=== PATIENT | male | born 1940 | race Caucasian/White ===

== ENCOUNTER 2020-09-03 11:10 | Observation (INO) | payer MEDICARE, SELFPAY ==
[2020-09-03] VITALS (28 sets, daily range): BP systolic 122–159; BP diastolic 56–87; PULSE 73–99; RESP 16–28; TEMP 36.4–36.8; O2SAT 92–98; BMI 22.6
--- NOTE | ~2020-09-03 | XR_ITS ---
EXAMINATION: XR chest 2V DATE: 09/03/2020 11:35 INDICATION: Chest pain TECHNIQUE: PA and lateral views of the chest are obtained. COMPARISON: None available FINDINGS: The lungs are free of acute opacities. There is no pleural effusion or pneumothorax. The ca rdiomediastinal silhouette is normal. There is severe thoracic spondylosis. IMPRESSION: 1. No acute cardiopulmonary abnormality. Reviewed, dictated and finalized at location A.
--- NOTE | ~2020-09-03 | CT_ITS ---
EXAMINATION: CT abdomen pelvis w con INDICATION: Epigastric pain TECHNIQUE: Computed tomographic images of the abdomen and pelvis were obtained after the administrati on of 100 cc of Omnipaque 350 intravenous contrast. The dose-length product (DLP) was 466.28 mGy-cm. Automated exposure control and iterative reconstruction technique were employed. COMPARISON: None available FINDINGS: Minimal dependent atelectasis is present in the lung bases. The heart size is normal. The l iver is diffusely low in attenuation when compared with the spleen, consistent with hepatic steatosis . The gallbladder is surgically absent. Punctate calcifications in an otherwise normal spleen likely represent healed granulomatous disease. The pancreas and adrenal glands are normal. Cysts of the kidn eys measure up to 1.3 cm on the left. No pathologically enlarged abdominal or pelvic lymph nodes are identified. There is calcified atherosclerosis of the aorta and many of the other arteries. There is severe stenosis at the origin of the superior mesenteric artery. There is no free intraperitoneal gas or evidence of bowel obstruction. Colonic diverticulosis is present without evidence of diverticulit is. The appendix is normal. There is severe lumbar spondylosis. IMPRESSION: 1. 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 Reviewed, dictated and finalized at location A. IMPRESSION: 1. 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
--- NOTE | ~2020-09-03 | CT_ITS ---
EXAMINATION: CTA abdomen pelvis EXAM DATE: 09/05/2020 14:01 INDICATION: SMA stenosis. TECHNIQUE: Spiral CT angiogram of the abdomen and pelvis was performed following intravenous injectio n of 100 mL Omnipaque 350. Axial, coronal and sagittal images of the abdomen and pelvis were reviewe d. Maximum intensity projection 3-D reconstructions of the arteries were created by the technologist on dedicated workstation. The dose-length product (DLP) for this examination was 613.66 mGy-cm. T he exposure was tailored according to patient size (auto mA exposure control), and iterative reconstr uction (ASIR) was used as additional dose reduction technique. Comparison is made to prior examinatio n from 09/03/2020. FINDINGS: ARTERIES: There is approximately 1.5 cm segment of superior mesenteric artery origin atherosclerosis which has narrowing of lumen to about 2 mm in diameter versus reference point distal to this narrowin g of 7 mm. Remainder of the superior mesenteric artery enhances normally, and both celiac and the in ferior mesenteric arteries are widely patent. Generally 2 vessels need to be stenotic for mesenteric ischemia. Otherwise mild to moderate scattered arterial sclerosis. No aortic dissection. Renal arter ies are widely patent. The liver, spleen, adrenal glands and pancreas are unremarkable. There are cholecystectomy clips. P ortal and splenic veins are patent. Kidneys enhance symmetrically. There is no hydronephrosis. Mi ld prostatomegaly. Small left inguinal fat-containing hernia. The bladder is unremarkable. There is no retroperitoneal or pelvic lymphadenopathy. The appendix is normal. Small duodenal diverticulum. Small bowel is unremarkable. There is extensive colonic diverticulosis. There is no adjacent inflammatory change to suggest diverticulitis. There i s expected amount of colonic stool. No free intraperitoneal gas. The heart is normal in size. Th ere are no pericardial or pleural effusions. The lung bases are unremarkable. There are no osteobla stic or osteolytic lesions identified. IMPRESSION: 1. 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 Unremarkable small bowel. 2. Extensive colonic diverticulosis. Duodenal diverticulum. 3. No acute intra-abdominal findings. 4. Small left inguinal fat-containing hernia. Reviewed, dictated and finalized at location A. IMPRESSION: 1. 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 Unremarkable small patito wel. 2. Extensive colonic diverticulosis. Duodenal diverticulum. 3. No acute intra-abdominal findings. 4. Small left inguinal fat-containing hernia.
--- NOTE | 2020-09-03 11:12 | ECG_ITS ---
Measurements Intervals [place] Rate: 86 P: 205 [place]: 187 QRS: -26 QRSD: 92 T: 257 QT: 346 QTc: 415 Interpretive Statements ECTOPIC ATRIAL RHYTHM DELAYED PRECORDIAL R/S TRANSITION T WAVE ABNORMALITY IN INFERIOR LEADS- CONSIDER ISCHEMIA BASELINE ARTIFACT- II, V1-V2 ABNORMAL ECG Electronically Signed On 09-03-2020 12:41:32 CDT by Kei Gonzalez D.O.
[2020-09-03 11:51] LABS: Basophils Percent Auto 0.6 % (0.2-1.2); Eosinophils Absolute Auto 0.1 K/mm3 (0-0.3); Eosinophils Percent Auto 0.8 % (0-4.4); Hematocrit 42.9 % (42.0-52.0); Hemoglobin 14.1 g/dL (14.0-18.0); Immature Granulocyte Absolute 0.04 K/mm3 (0.00-0.031); Immature Granulocyte Percent A 0.6 % (0-0.5); Lymphocytes Absolute Auto 0.81 K/mm3 (0.9-3.2); Lymphocytes Percent Auto 11.2 % (18.3-44.2); Mean Corpuscular HGB Conc 32.9 g/dl (32-36); Mean Corpuscular Hemoglobin 29.9 pg (26-34); Mean Corpuscular Volume 91.1 fl (80-100); Monocytes Absolute Auto 0.7 K/mm3 (0.1-0.6); Monocytes Percent Auto 9.7 % (2.6-8.5); Neutrophils Absolute Auto 5.6 K/mm3 (1.3-6.7); Neutrophils Percent Auto 77.1 % (45.5-73.1); Platelet Count Result 250 k/mm3 (150-375); Red Blood Count 4.71 M/mm3 (4.6-6.20); Red Cell Distribution Width 12.4 % (11.5-14.5); White Blood Count 7.2 K/mm3 (4.5-10.0)
[2020-09-03] MEDS: ASPIRIN 81 MG CHEWABLE TABLET 324 MG PO (11:58)
[2020-09-03 12:01] LABS: Anion Gap 10 mmol/L (8-16); Blood Urea Nitrogen 12 mg/dL (9-20); Calcium 10.1 mg/dL (8.4-10.2); Carbon Dioxide 25 mmol/L (22-30); Chloride 101 mmol/L (98-107); Estimated CRCL calculation 58 ml/min; Estimated Glomerular Filt Rate > 60; Glucose 115 mg/dL (65-110); INR 0.9; Potassium 4.3 mmol/L (3.4-5.0); Prothrombin Time 11.8 Seconds (11.1-14.7); Sodium 136 mmol/L (137-145)
[2020-09-03 12:02] LABS: Partial Thromboplastin Time 24.2 SECONDS (22.3-36.8)
[2020-09-03 12:12] LABS: Troponin I < 0.012 ng/mL (0.000-0.034)
[2020-09-03] MEDS: LIDOCAINE HCL 2% VISC SOLN 15 ML UDC 20 ML PO (12:23)
[2020-09-03] MEDS: MAG HYDROX/AL HYDROX/SIMETH 30 ML UDC PO (12:24)
[2020-09-03] MEDS: FAMOTIDINE 20 MG/2 ML VIAL IV PUSH (12:24)
[2020-09-03] MEDS: SODIUM CHLORIDE 0.9% IV 500 ML 999 ML IV CONT (14:55)
[2020-09-03 14:58] LABS: Troponin I < 0.012 ng/mL (0.000-0.034)
[2020-09-03 15:13] LABS: Lactic Acid Reflex 0.8 mmol/L (0.7-2.1)
--- NOTE | 2020-09-03 16:58 | ED.CHESTPAIN ---
HPI - Chest Pain General Chief Complaint: Chest Pain Stated Complaint: chest pain Time Seen by Provider: 09/03/20 11:57 Source: patient, family and RN notes reviewed Mode of arrival: ambulatory Limitations: no limitations History of Present Illness HPI narrative: Patient is a 80-year-old male who presents to emergency department for evaluation of midsternal and epigastric discomfort for the last 3 days noting that he has had this pain off and on for the last 3 days unsure as to the cause sometimes feels pressure and fullness of the abdomen and thought maybe it was related to his abdomen being gassy patient has not taken anything for his symptoms patient notes in June he had 4 stents placed in 2 vessels patient denies vomiting diarrhea rectal bleeding melena patient notes that his physicians are located in [facility] and he is currently in the process of moving to this area patient on arrival does not appear distressed notes that his pain does not radiate Related Data Allergies Allergy/AdvReac Type Severity Reaction Status Date / Time No Known Allergies Allergy Verified 09/03/20 11:56 Review of Systems Review of Systems: All systems reviewed & are unremarkable except as noted in HPI and below PMFSH Past Medical History Medical History (Updated 09/03/20 @ 17:04 by Davon Chanel PA-C) Coronary artery disease Hyperlipidemia Hypertension Surgical History Surgical History (Updated 09/03/20 @ 17:00 by Davon Chanel PA-C) Stented coronary artery Social History Social History (Updated 09/03/20 @ 17:00 by Davon Chanel PA-C) Smoking status: Never smoker Exam Narrative: Exam Narrative: GENERAL: Well-appearing, well-nourished, and in no acute distress. HEAD: Normocephalic, atraumatic. EYES: PERRLA and EOMI. ENT: Nares clear, no rhinorrhea or epistaxis. Mucous membranes moist. CHEST: Clear to auscultation. No respiratory distress. No wheezes rales or rhonchi HEART: Regular rate and rhythm. No murmur heard. Normal peripheral pulses. ABDOMEN: Soft, mild discomfort in the upper quadrants of the abdomen, nondistended EXTREMITIES: Normal range of motion. No edema. SKIN: Warm, dry, no rash. NEURO: No focal deficits. Alert and oriented x3. Cranial nerves II through XII grossly intact PSYCH: Normal mood and affect. Course Course Emergency Course: Patient evaluated in the emergency department will be placed in hospital given his high risk heart score patient aware of his findings resting comfortably in the room at this time in no distress denying any pain is afebrile nontoxic-appearing ABCs and vital signs intact and stable Consultations Consultation #1: Discussed case with the body and fender mechanic Dr. Painter who has agreed to consult on the patient Discussed case with hospitalist who is agreed to accept the patient Date: 09/03/20 Vital Signs Vital signs: Vital Signs Temperature 98.3 F 09/03/20 11:16 Pulse Rate 76 09/03/20 11:16 Respiratory Rate 16 09/03/20 11:16 Blood Pressure 142/83 H 09/03/20 11:16 Pulse Oximetry 97 09/03/20 11:16 Temperature 98.3 F 09/03/20 11:16 Pulse Rate 94 09/03/20 13:31 Respiratory Rate 21 H 09/03/20 13:31 Blood Pressure 122/64 09/03/20 13:31 Pulse Oximetry 92 09/03/20 13:31 MDM - Chest Pain MDM Narrative Medical decision making narrative: Patient presented with epigastric abdominal pain and chest discomfort no concerning findings in his evaluation will be brought into the hospital for further evaluation and restratification he is afebrile nontoxic-appearing in no distress and without pain at this time Lab Data Result diagrams: 09/03/20 11:42 09/03/20 11:42 Labs: Lab Results 09/03/20 09/03/20 09/03/20 Range/Units 11:42 11:42 11:42 WBC 7.2 (4.5-10.0) K/mm3 RBC 4.71 (4.6-6.20) M/mm3 Hgb 14.1 (14.0-18.0) g/dL Hct 42.9 (42.0-52.0) % MCV 91.1 (80-100) fl MCH 29.9 (26-34) pg
[2020-09-03 20:10] LABS: Cholesterol 119 mg/dL (0-200); HDL Direct 51 mg/dL; Triglycerides 59 mg/dL (<150)
[2020-09-03 20:20] LABS: LDL Cholesterol Direct 47 mg/dL
[2020-09-03 20:23] LABS: Troponin I < 0.012 ng/mL (0.000-0.034)
--- NOTE | 2020-09-03 20:35 | ADMIMU ---
This patient, Ramiro Enciso, was admitted to IMU status, and placed in IMU Room 200-01 at 1856. Patient/family oriented to hospital policies and general routines including ID bracelet, bed and alarms, visiting hours, pain management, procedures, bathroom and other care routines, personal items, smoking policy, room service/diet, and visiting hours. Patient denies having any valuables. Information on how to activate the Rapid Response Team has been discussed. Patient/Family are encouraged to report perceived risks to care and to ask questions if they do not understand what they are told or what they should do.
--- NOTE | 2020-09-03 20:45 | PC.NURSE ---
Pt reports he received both Moderna vaccines.
--- NOTE | 2020-09-03 23:16 | PM.IMHP ---
H&P: HPI History of Present Illness Date/Time: 09/03/20 23:16 This is a 80-year-old male patient who has a past medical history of coronary artery disease with cardiac stents. The patient states that he has been having some midsternal and left upper gastric discomfort on and off for 3 days. The patient stated that his pain went away and then when he ate today it came back. The patient also stated that he is trying to relocate here from [facility]. He was several hours away from home and did not want to drive all the way back. The patient feels very gassy and has a distended abdomen as well. The patient had 4 stents placed in 2 different vessels and june. No nausea vomiting or diarrhea. 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 Chest x-ray was read as no acute cardiopulmonary . The patient is being locating to this area and does not have a primary care doctor here. The patient was given aspirin and a GI cocktail as well as IV fluids. all 3 of his cardiac enzymes are negative. Cardiology has been consulted due to the patient's extensive cardiac history.The patient is being admitted for observation On the date of service of 09/03/2020 Chief Complaint: chest pain Review of Systems Review of Systems: All systems reviewed & are unremarkable except as noted in HPI and below Constitutional: Constitutional: Reports as per HPI and Reports no additional constitutional complaints Eyes: Eyes: Reports as per HPI and Reports no additional eye complaints ENT: Reports system reviewed and no additional complaints, except as documented and Reports Normal hearing present Cardiovascular: Cardiovascular: Reports no additional cardiovascular complaints Respiratory: Respiratory: Reports no additional respiratory complaints and Reports no additional respiratory complaints Gastrointestinal: Gastrointestinal: Reports as per HPI and Reports no additional gastrointestinal complaints Musculoskeletal: Musculoskeletal: Reports no additional musculoskeletal complaints Integumentary/Breasts: Skin/Breast: Reports system reviewed and no additional complaints, except as docu and Reports as per HPI Neurologic: Reports system reviewed and no additional complaints, except as documented, Reports as per HPI and Reports Normal hearing present Psychiatric: Psychiatric: Reports no additional psychiatric complaints and Reports as per HPI Endocrine: Endocrine: Reports no additional endocrine complaints Hematologic/Lymphatic: Hematologic/Lymphatic: Reports no additional hematologic/lymphatic complaints Allergic/Immunologic: Allergic/Immunologic: Reports no additional allergic/immunologic complaints [facility] Past Medical History Medical History (Updated 09/03/20 @ 23:37 by Aimee Manzano NP) Chronic GERD Coronary artery disease Glaucoma Hyperlipidemia Hypertension Surgical History Surgical History (Updated 09/03/20 @ 23:24 by Aimee Manzano NP) History of bilateral knee replacement History of cataract extraction Hx of cholecystectomy Stented coronary artery Family History Family History Father Cerebrovascular accident Sibling Breast cancer Sister Diabetes mellitus Kidney failure Social History Social History (Updated 09/03/20 @ 23:25 by Aimee Manzano NP) Social History: patient stated he quit smoking over 35 years ago. He had 5 children. And lives with his 2nd who is a durable power workers compensation attorney for healthcare. The patient is a full code. 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
[2020-09-04] VITALS (14 sets, daily range): BP systolic 99–149; BP diastolic 45–71; PULSE 57–98; RESP 16–22; TEMP 36.2–37.1; O2SAT 94–100
--- NOTE | 2020-09-04 | ECHO_ITS ---
Patient Info Name: Ramiro Enciso Age: 80 years : 1940 Gender: Male Ht: 70 in Wt: 157 lbs BSA: 1.88 m2 HR: 89 bpm BP: 136 / 60 mmHg Heart Rhythm: Sinus Rhythm Technical Quality: Good Exam Date: 09/04/2020 11:14 AM Exam Location: [facility] Patient Status: Outpatient Admit Date: 09/03/2020 Staff Ordering Physician: Aimee Manzano NP [place] [employer]er Taper: Miguel Lee RDCS, RT Attending Provider: Mable Yepez PA-C Referring Physician: Jose Juan NOVAK; Exam Type: CA echo doppler color flow Study Info Indications R06.02 - Shortness of breath Complete two-dimensional, color flow and Doppler transthoracic echocardiogram is performed. Summary 1. Complete two-dimensional, color flow and Doppler transthoracic echocardiogram is performed. 2. Left ventricular chamber dimension is normal. 3. Left ventricular systolic function is normal, estimated at 65-70%. 4. There is mildly increased left ventricular wall thickness. 5. The left ventricular diastolic function is grade I diastolic dysfunction. 6. There is mild tricuspid valve regurgitation. 7. Moderate pulmonary hypertension, estimated pulmonary arterial systolic pressure is 48 mmHg. Left Ventricle Left ventricular chamber dimension is normal. Left ventricular systolic function is normal, estimated at 65-70%. There is mildly increased left ventricular wall thickness. The left ventricular diastolic function is grade I diastolic dysfunction. Right Ventricle Right ventricular chamber dimension is normal. Right ventricular systolic function is normal. Left Atria Left atrial chamber dimension is normal. Right Atria Right atrial chamber dimension is mildly enlarged. Atrial Septum Thin and hypermobile interatrial septum. Aortic Valve The aortic valve is not well visualized. There is mild aortic valve sclerosis. There is no aortic valve stenosis. There is trace aortic valve regurgitation. Pulmonic Valve The pulmonic valve is not well visualized. Mitral Valve The mitral valve has normal leaflets. There is trace mitral valve regurgitation. The mitral valve annulus is mildly calcified. Tricuspid Valve The tricuspid valve leaflets are normal. There is mild tricuspid valve regurgitation. Moderate pulmonary hypertension, estimated pulmonary arterial systolic pressure is 48 mmHg. Pericardium/Pleural The pericardium appears normal. There is small pericardial effusion. Inferior Vena Cava Normal inferior vena cava with >50% collapse upon inspiration consistent with normal right atrial pressure, 5 mmHg. Aorta The aortic root size at the sinus of Valsalva is not well visualized. There is mild aortic atherosclerosis. Left Ventricular Outflow Tract Name Value Normal LVOT 2D LVOT Diameter 2.0 cm LVOT Doppler LVOT Peak Gradient 4 mmHg LVOT Mean Gradient 2 mmHg LVOT VTI 24 cm LVOT VTI/AV VTI Ratio 0.7 LVOT Stroke Volume 78 ml LVOT CO 5.
[2020-09-04 04:25] LABS: Basophils Absolute Auto 0.1 K/mm3 (0.0-0.1); Basophils Percent Auto 1.1 % (0.2-1.2); Eosinophils Absolute Auto 0.2 K/mm3 (0-0.3); Eosinophils Percent Auto 3.7 % (0-4.4); Hematocrit 38.2 % (42.0-52.0); Hemoglobin 12.6 g/dL (14.0-18.0); Immature Granulocyte Absolute 0.04 K/mm3 (0.00-0.031); Immature Granulocyte Percent A 0.6 % (0-0.5); Lymphocytes Absolute Auto 1.28 K/mm3 (0.9-3.2); Lymphocytes Percent Auto 19.8 % (18.3-44.2); Mean Corpuscular Hemoglobin 30.2 pg (26-34); Mean Corpuscular Volume 91.6 fl (80-100); Mean Platelet Volume 9.2 fl (7.4-10.4); Monocytes Absolute Auto 0.8 K/mm3 (0.1-0.6); Monocytes Percent Auto 12.4 % (2.6-8.5); Neutrophils Percent Auto 62.4 % (45.5-73.1); Platelet Count Result 221 k/mm3 (150-375); Red Blood Count 4.17 M/mm3 (4.6-6.20); Red Cell Distribution Width 12.4 % (11.5-14.5); White Blood Count 6.5 K/mm3 (4.5-10.0)
[2020-09-04 04:36] LABS: Anion Gap 7 mmol/L (8-16); Blood Urea Nitrogen 14 mg/dL (9-20); Calcium 9.2 mg/dL (8.4-10.2); Carbon Dioxide 26 mmol/L (22-30); Chloride 103 mmol/L (98-107); Estimated CRCL calculation 57 ml/min; Estimated Glomerular Filt Rate > 60; Glucose 91 mg/dL (65-110); Magnesium 1.7 mg/dL (1.6-2.3); Potassium 3.9 mmol/L (3.4-5.0); Sodium 136 mmol/L (137-145)
[2020-09-04 04:37] LABS: Lactic Acid Reflex 0.6 mmol/L (0.7-2.1)
[2020-09-04] MEDS: MAGNESIUM SULF 2 GM/WATER 50ML 2 GM/50 ML BAG IVPB (08:49)
[2020-09-04] MEDS: OMEGA 3 POLYUNSAT FATTY ACIDS 1 GM CAP PO (08:50)
[2020-09-04] MEDS: FAMOTIDINE 20 MG/2 ML VIAL IV PUSH (08:50)
[2020-09-04] MEDS: ASPIRIN 81 MG CHEWABLE TABLET PO (08:50)
[2020-09-04] MEDS: CLOPIDOGREL BISULFATE 75 MG TABLET PO (08:51)
[2020-09-04] MEDS: OPTI-GEN TAB 1 TABLET PO ×2 (08:51→18:03)
--- NOTE | 2020-09-04 10:20 | PM.CNCAR ---
Assessment and Plan Assessment and plan (1) Chest pain: Code(s): R07.9 - Chest pain, unspecified Status: Acute Assessment and Plan: Resolved, atypical different than his prior anginal symptoms resolved with multiple stent implantation June 2020 at outside hospital. Awaiting records. He has ruled out for myocardial infarction with negative serial cardiac enzymes. EKG without acute ischemic changes. Symptoms most likely consequence of abdominal discomfort most likely of GI etiology less likely but cannot be excluded mesenteric ischemia. Continue dual antiplatelet therapy without interruption. -Further recommendations to follow. Spent 54 minutes in the care of this patient including examination at bedside, discussions with patient and primary service, chart review, and medical decision making. (2) Abdominal pain: Code(s): R10.9 - Unspecified abdominal pain Status: Acute Assessment and Plan: As above, most likely GI etiology with some concern for ulcerative/inflammatory disease. Patient relates a history of GI bleed status post transfusion 2-3 years ago, GERD and exacerbation of symptoms with meals and improvement with GI cocktail in the ER. He reports dark stools for the past couple months as well yet minimally anemic hemoglobin 12.6. Continue to follow H&H closely. GI consultation pending. (3) Coronary artery disease: Code(s): I25.10 - Atherosclerotic heart disease of [place] coronary artery without angina pectoris Status: Inactive Assessment and Plan: -Ruled out for IA as above. Continue aggressive medical therapy. Patient not currently on statin therapy for unclear reasons. -Initiate statin therapy. -Repeat 12 lead EKG given ectopic atrial rhythm on BB. -2D Echo -Review prior CV records, LHC/PCI, EKG, stress test, office notes as requested when availabe. (4) Mesenteric artery stenosis: Code(s): K55.1 - Chronic vascular disorders of intestine Status: Acute Assessment and Plan: CTA abd/pelvis for further delineation of mesenteric anatomy. No evidence for acute ischemic abdomen, neg lactic acid, neg Trop, pt currently with minimal sxs. (5) Ectopic atrial rhythm: Code(s): I49.1 - Atrial premature depolarization Status: Acute Assessment and Plan: -Repeat 12 lead EKG -Telemetry -Metoprolol tartrate 50mg BID (6) Hypertension: Code(s): I10 - Essential (primary) hypertension Status: Chronic Assessment and Plan: Stable, fair control overall. (7) Hyperlipidemia: Code(s): E78.5 - Hyperlipidemia, unspecified Status: Chronic Assessment and Plan: Triglycerides 59, discontinue gemfibrozil. If he is truly not currently on a statin I would initiate at least low-dose atorvastatin every other day. LDL 47 presently. Goal LDL<70. (8) Stented coronary artery: Code(s): Z95.5 - Presence of coronary angioplasty implant and graft Status: Inactive Assessment and Plan: As above. History of Present Illness History of Present Illness Consult date/time: Date of service:09/04/20 10:20 This is a cardiology consultation at the request of Aimee Manzano APN of the [facility] Service for our opinion regarding chest and abdominal pain, CAD Requesting physician: Aimee Manzano NP Consult reason: chest pain and Other (CAD) Reason For Visit: CHEST PAIN, ABDOMINAL PAIN Narrative: Patient is a very pleasant 80-year-old male with past medical history significant for hypertension, dyslipidemia, remote GI bleed, GERD, and CAD status post multiple stents June 2020 in [place], [place] who recently relocated to this area will be resent to the emergency department with complaints of epigastric abdominal discomfort central in left upper quadrant and lower chest. Patient states this is mostly in his abdomen felt bloated, excess gas particularly worse with meals of late. In fact he had j
--- NOTE | 2020-09-04 10:52 | PM.IMPN ---
Progress Note: A&P Assessment and Plan (1) Chest pain: Code(s): R07.9 - Chest pain, unspecified Status: Acute Assessment and Plan: Patient with history of CAD s/p coronary stenting 2 months ago presents for evaluation of intermittent midsternal/upper abdominal burning pain. Pain appears of GI etiology. Trops negative x 3, EKG without ischemic changes. Cardiology consulted by ED provider - appreciate input. He remains on DAPT for recent coronary stenting and this should not be stopped. (2) Abdominal pain: Code(s): R10.9 - Unspecified abdominal pain Status: Acute Assessment and Plan: Epigastric/ left upper quadrant discomfort. Reports dark stools. PPI IV BID for now pending GI recommendations. He described the burning sometimes gets worse after meals. Improved with GI cocktail. History of GI bleed in the past he is unsure of the cause. Appreciate GI input. Differentials include gastritis or PUD. Mesenteric ischemia could possibly contribute. He does not have an acute abdomen by exam this morning and lactic acid is normal. Edit: Plan is for EGD tomorrow. Appreciate Dr Castro's input. NPO at midnight. (3) Mesenteric artery stenosis: Code(s): K55.1 - Chronic vascular disorders of intestine Status: Acute Assessment and Plan: CT abd/pelvis shows evidence of superior mesenteric artery stenosis. May benefit from outpatient vascular surgery follow up. Appreciate GI input, scope may provide information for another cause of his pain. (4) Chronic GERD: Code(s): K21.9 - Gastro-esophageal reflux disease without esophagitis Status: Chronic Assessment and Plan: IV PPI. (5) Hyperlipidemia: Code(s): E78.5 - Hyperlipidemia, unspecified Status: Chronic Assessment and Plan: On gemfibrozil. (6) Hypertension: Code(s): I10 - Essential (primary) hypertension Status: Chronic Assessment and Plan: BP stable/ lower end. Continue his home metoprolol. Subjective Date/time seen: 09/04/20 10:30 Interval history: Mr. Enciso is a very pleasant 80yo M admitted for evaluation of chest/upper abdominal pain. He describes an upper abdominal burning pain that has been intermittent for months, worsened in the last 3 days. He describes dark stools also ongoing for months, a few bowel movements he certainly thought were black in color. He denies shortness of breath. Some of this burning has been midsternal but today mostly points to his epigastrium when describing pain. He is otherwise in good spirits and offers no other complaints. Last BM yesterday. Review of Systems Review of Systems: All systems reviewed & are unremarkable except as noted in HPI and below Exam Narrative: Exam Narrative: General: Male resting comfortably resting sitting up in bed in no acute distress, about to eat breakfast. HEENT: Normocephalic, EOMI, oral mucosa moist. Cardiovascular: Rate and rhythm are regular. Respiratory: Lungs clear to auscultation bilaterally. Respirations even and non-labored. Tolerating room air. Abdomen: Soft, non-distended, bowel sounds present. Mild tenderness to palpation of epigastrium without guarding. Extremities: Peripheral pulses intact. No edema or pain to palpation. Neuro: Awake and alert; answering questions appropriately. No focal neurological deficits. Speech is clear. Objective Data Vital Signs Vital Signs: Last Vital Signs Temp 97.4 F L 09/04/20 12:00 Pulse 81 09/04/20 12:00 Resp 20 09/04/20 12:00 BP 134/53 L 09/04/20 12:00 Pulse Ox 97 09/04/20 12:00 Intake/Output Intake/Output: Intake & Output 09/01/20 09/02/20 09/03/20 09/04/20 23:59 23:59 23:
[2020-09-04] MEDS: ATORVASTATIN 5 MG TABLET PO (12:47)
--- NOTE | 2020-09-04 13:32 | WPDGICN ---
Assessment and Plan Assessment and plan (1) LUQ pain: Code(s): R10.12 - Left upper quadrant pain Status: Acute Assessment and Plan: Patient with left upper quadrant pain after eating. This could represent gastritis or peptic disease of the stomach. Will cover with PPI therapy plan an EGD to evaluate more thoroughly. Because pain is worse after eating at certainly could represent mesenteric ischemia. 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 Would suggest opinion from vascular surgery. Surgery at this elderly patient with coronary artery disease would certainly be a challenge. Perhaps some more conservative stenting is possible would suggest seeking their opinion. (3) Coronary artery disease: Code(s): I25.10 - Atherosclerotic heart disease of [place] coronary artery without angina pectoris Status: Acute Assessment and Plan: Patient with known atherosclerotic heart disease. Status post recent stent placement. Currently asymptomatic. Appreciate cardiology input which appears to be stable. GI Consult Note Consult date/time: 09/04/20 13:32 HPI: Ramiro Enciso is a 80 year old male Seen in evaluation at the request of the hospitalist service. Patient is known to have atherosclerotic heart disease. Underwent several cardiac stents approximately 3 months ago. Patient states his previous angina has improved. He complains of left upper quadrant discomfort that has been present off and on over the last 3-4 days. Pain seems to worsen after eating. He initially was given a GI cocktail in the emergency room is uncertain whether this made any benefit on his discomfort. Cardiology is followed the patient feels that this is stable and improved. A CT scan of the abdomen was performed which raise the question mesenteric artery stenosis. Review of Systems Review of Systems: All systems reviewed & are unremarkable except as noted in HPI and below [facility] Past Medical History Medical History (Updated 09/04/20 @ 13:35 by Edu Castro MD) Chronic GERD Coronary artery disease Glaucoma Hyperlipidemia Hypertension Surgical History Surgical History (Updated 09/04/20 @ 10:34 by Carlos Painter MD) History of bilateral knee replacement History of cataract extraction Hx of cholecystectomy Stented coronary artery Family History Family History Father Cerebrovascular accident Sibling Breast cancer Sister Diabetes mellitus Kidney failure Social History Social History Social History: patient stated he quit smoking over 35 years ago. He had 5 children. And lives with his 2nd who is a durable power energy attorney for healthcare. The patient is a full code. 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 Smoking status: Former smoker Tobacco type: cigars Second hand tobacco smoke exposure: Yes Alcohol intake: former Substance use: never Spiritual care concerns: Yes (denominational) Meds Home Medications and Allergies Home Medications Medication Instructions Recorded Confirmed Type aspirin 81 mg PO DAILY 09/03/20 09/03/20 History clopidogrel [Plavix] 75 mg PO DAILY 09/03/20 09/03/20 History coenzyme Q10 [CoQ-10] 30 mg PO DAILY 09/03/20 09/03/20 History gemfibrozil 600 mg PO DAILY 09/03/20 09/03/20 History metoprolol succinate 25 mg PO BID 09/03/20 09/03/20 History omega 2-ads-ukq-fish oil [Fish Oil] 1 cap PO DAILY 09/03/20 09/03/20 History pantoprazole 20 mg PO QAM 09/03/20 09/03/20 History vitamins A,C,U-eiqp-rttoto 1 cap PO BID 09/03/20 09/03/20 History [PreserVision AREDS] Allergies Allergy/AdvReac Type Severity Reaction Status
[2020-09-04] MEDS: METOPROLOL TARTRATE 50 MG TAB PO (21:35)
[2020-09-04] MEDS: PANTOPRAZOLE SODIUM IV 40 MG VIAL IV PUSH (21:35)
[2020-09-05] VITALS (7 sets, daily range): BP systolic 122–145; BP diastolic 62–77; PULSE 46–69; RESP 14–25; TEMP 35.8–36.3; O2SAT 95–98
[2020-09-05 05:13] LABS: Hematocrit 37.5 % (42.0-52.0); Hemoglobin 12.6 g/dL (14.0-18.0)
[2020-09-05 05:16] LABS: Hemoglobin A1C 5.7 % (<5.7)
[2020-09-05 05:17] LABS: Anion Gap 7 mmol/L (8-16); Blood Urea Nitrogen 13 mg/dL (9-20); Calcium 9.3 mg/dL (8.4-10.2); Carbon Dioxide 28 mmol/L (22-30); Chloride 99 mmol/L (98-107); Estimated CRCL calculation 64 ml/min; Estimated Glomerular Filt Rate > 60; Glucose 94 mg/dL (65-110); Potassium 4.5 mmol/L (3.4-5.0); Sodium 134 mmol/L (137-145)
[2020-09-05] MEDS: PANTOPRAZOLE SODIUM IV 40 MG VIAL IV PUSH (08:30)
--- NOTE | 2020-09-05 10:50 | PM.PNCARD ---
Progress Note: A&P Assessment and Plan (1) Chest pain: Code(s): R07.9 - Chest pain, unspecified Status: Acute Assessment and Plan: Resolved, atypical different than his prior anginal symptoms resolved with PCI to the RCA and staged PCI to LAD in June 2020 at outside hospital. He has ruled out for myocardial infarction with negative serial cardiac enzymes. EKG without acute ischemic changes. Symptoms most likely consequence of abdominal discomfort most likely of GI etiology less likely but cannot be excluded mesenteric ischemia. - Continue dual antiplatelet therapy without interruption. - 09/04/20 echo showed normal systolic function with EF 65-70%, grade I diastolic dysfunction, moderate PHTN, no significant valve pathology. (2) Abdominal pain: Code(s): R10.9 - Unspecified abdominal pain Status: Acute Assessment and Plan: As above, most likely GI etiology with some concern for ulcerative/inflammatory disease. Patient relates a history of GI bleed status post transfusion 2-3 years ago, GERD and exacerbation of symptoms with meals and improvement with GI cocktail in the ER. He reports dark stools for the past couple months as well yet minimally anemic hemoglobin 12.6. Continue to follow H&H closely. EGD today (3) Coronary artery disease: Code(s): I25.10 - Atherosclerotic heart disease of [place] coronary artery without angina pectoris Status: Acute Assessment and Plan: -Ruled out for [place] as above. Continue aggressive medical therapy. Patient not currently on statin therapy for unclear reasons. -Initiate statin therapy. (4) Mesenteric artery stenosis: Code(s): K55.1 - Chronic vascular disorders of intestine Status: Acute Assessment and Plan: CTA abd/pelvis for further delineation of mesenteric anatomy. No evidence for acute ischemic abdomen, neg lactic acid, neg Trop, pt currently with minimal sxs. (5) Ectopic atrial rhythm: Code(s): I49.1 - Atrial premature depolarization Status: Acute Assessment and Plan: It doesn't look like EKG was repeated - will obtain. Now in sinus rhythm/sinus octavio. No significant pauses noted on telemetry overnight rate in 40's, high 30's. Continue current metoprolol dose. (6) Hypertension: Code(s): I10 - Essential (primary) hypertension Status: Chronic Assessment and Plan: Stable, fair control overall. (7) Hyperlipidemia: Code(s): E78.5 - Hyperlipidemia, unspecified Status: Chronic Assessment and Plan: Triglycerides 59, discontinue gemfibrozil. If he is truly not currently on a statin I would initiate at least low-dose atorvastatin every other day. LDL 47 presently. Goal LDL<70. (8) Stented coronary artery: Code(s): Z95.5 - Presence of coronary angioplasty implant and graft Status: Inactive Assessment and Plan: As above. Subjective Date/time seen: 09/05/20 10:50 Date of service 09/05/20: He's feeling well today. Still had some abdominal discomfort. No chest pain. No shortness of breath. There was some concern for bradycardia overnight but I did not see any significant pauses. Sinus rhythm in the 60's now. Review of Systems Review of Systems: All systems reviewed & are unremarkable except as noted in HPI and below Constitutional: Constitutional: Reports as per HPI, Reports no additional constitutional complaints and Denies chills Eyes: Eyes: Reports as per HPI and Reports no additional eye complaints ENT: Reports system reviewed and no additional complaints, except as documented and Reports as per HPI Cardiovascular: Cardiovascular: Reports as per HPI, Reports no additional cardiovascular complaints, Reports chest pain, Denies diaphoresis, Denies pedal edema, Denies leg edema, Reports lightheadedness, Denies palpitations, Denies dyspnea and Denies dyspnea on exertion Respiratory: Respiratory: Reports as per HPI, Reports no addit
[2020-09-05] MEDS: LACTATED RINGERS 1,000 ML 150 ML IV CONT (10:59)
--- NOTE | 2020-09-05 11:36 | WPDANESEPPF ---
Anes - Initial Pre Proc Eval Procedure: Operation Date: 09/05/20 12:15 Proposed Procedures p Esophagogastroduodenoscopy - Ti Brown MD Date/Time: 09/05/20 11:36 Surgeon: INDY Carrion Pre Op Diagnosis: CHEST PAIN, ABDOMINAL PAIN Patient Data Age: 80 Gender: M Height: 1.78 m Weight: 71.4 kg Last Vital Signs Temp 96.5 F L 09/05/20 11:05 Pulse 69 09/05/20 11:05 Resp 14 09/05/20 11:05 BP 145/62 H 09/05/20 11:05 Pulse Ox 97 09/05/20 11:05 Allergies Allergy/AdvReac Type Severity Reaction Status Date / Time No Known Allergies Allergy Verified 09/05/20 11:00 Home Medications Medication Instructions Recorded Confirmed Type aspirin 81 mg PO DAILY 09/03/20 09/03/20 History clopidogrel [Plavix] 75 mg PO DAILY 09/03/20 09/03/20 History coenzyme Q10 [CoQ-10] 30 mg PO DAILY 09/03/20 09/03/20 History gemfibrozil 600 mg PO DAILY 09/03/20 09/03/20 History metoprolol succinate 25 mg PO BID 09/03/20 09/03/20 History omega 8-kay-krr-fish oil [Fish Oil] 1 cap PO DAILY 09/03/20 09/03/20 History pantoprazole 20 mg PO QAM 09/03/20 09/03/20 History vitamins A,C,L-ingn-jvlgwh 1 cap PO BID 09/03/20 09/03/20 History [PreserVision AREDS] Laboratory Tests 09/05/20 09/05/20 09/05/20 04:15 04:15 04:15 Hgb 12.6 g/dL L g/dL (14.0-18.0) Hct 37.5 % L % (42.0-52.0) Sodium 134 mmol/L L mmol/L (137-145) Potassium 4.5 mmol/L mmol/L (3.4-5.0) Chloride 99 mmol/L mmol/L (98-107) Carbon Dioxide 28 mmol/L mmol/L (22-30) Anion Gap 7 mmol/L L mmol/L (8-16) BUN 13 mg/dL mg/dL (9-20) Creatinine 0.80 mg/dL mg/dL (0.7-1.3) Estim Creat Clear Calc 64 ml/min ml/min Estimated GFR > 60 (59 - ) Glucose 94 mg/dL mg/dL (65-110) Hemoglobin A1c 5.7 % % (<5.7) Calcium 9.3 mg/dL mg/dL (8.4-10.2) Magnesium 2.0 mg/dL mg/dL (1.6-2.3) Patient hx anesthesia problems: none Family hx anesthesia problems: none [facility] Past Medical History Medical History (Updated 09/04/20 @ 13:35 by Edu Castro MD) Chronic GERD Coronary artery disease Glaucoma Hyperlipidemia Hypertension Surgical History Surgical History (Updated 09/04/20 @ 10:34 by Carlos Painter MD) History of bilateral knee replacement History of cataract extraction Hx of cholecystectomy Stented coronary artery Family History Family History Father Cerebrovascular accident Sibling Breast cancer Sister Diabetes mellitus Kidney failure Social History Social History Social History: patient stated he quit smoking over 35 years ago. He had 5 children. And lives with his 2nd who is a durable power mailing jogger for healthcare. The patient is a full code. 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 Smoking status: Former smoker Tobacco type: cigars Second hand tobacco smoke exposure: Yes Alcohol intake: former Substance use: never Spiritual care concerns: Yes (hoahaoism) Anes - Eval Final PreProcedure Day of Procedure 09/05/20 11:36 Patient weight: overweight Heart: regular rate and rhythm Lungs: clear to auscultation Airway: Mallampati scale class II Neurological: alert and oriented Last oral intake: >/= 8 hours ASA classification: III Emergent: no Anesthetic plan: proceed Anesthesia type and monitoring: general GIVS and standard monitoring Informed Consent: The patient's anesthetic plan and its attendant risks and benefits were discussed with the patient/family/POA. Questions were solicited and answers provided to the satisfaction of the patient/family/POA.
[2020-09-05] MEDS: OPTI-GEN TAB 1 TABLET PO (13:18)
[2020-09-05] MEDS: ASPIRIN 81 MG CHEWABLE TABLET PO (13:18)
[2020-09-05] MEDS: OMEGA 3 POLYUNSAT FATTY ACIDS 1 GM CAP PO (13:18)
[2020-09-05] MEDS: METOPROLOL TARTRATE 50 MG TAB PO (13:18)
--- NOTE | 2020-09-05 15:58 | ECG_ITS ---
Measurements Intervals [place] Rate: 59 P: 8 NV: 185 QRS: -19 QRSD: 104 T: 16 QT: 410 QTc: 406 Interpretive Statements SINUS BRADYCARDIA DELAYED PRECORDIAL R/S TRANSITION BORDERLINE ECG Electronically Signed On 09-05-2020 16:48:07 CDT by Kei Gonzalez D.O.
--- NOTE | 2020-09-05 16:36 | PC.NURSE ---
This patient, Ramiro Enciso, was transferred to [facility] on 09/05/20 at 1636. Personal belongings sent with patient. Report given to Elena. Appropriate documentation sent with patient.
--- NOTE | 2020-09-05 17:02 | PM.DS ---
DS: Admitting Diagnosis Admitting Diagnosis Admitting Diagnosis: Chest pain/abd pain DS: Discharge Diagnosis Discharge Diagnosis (1) Chest pain: Code(s): R07.9 - Chest pain, unspecified Status: Acute Assessment and Plan: Date of Admission 09/03/20 Date of Discharge 09/05/20 Mr. Enciso is an 80yo M with history of coronary artery disease with recent coronary stenting June 2020 at outside hospital, history of prior GI bleed, who presented to the ED for evaluation of midsternal and upper abdominal burning pain. Troponins were negative. No EKG changes. Cardiology was consulted by the ED provider. ACS not suspected. He described his pain to epigastrium was worse after meals. CT abd/pel demonstrated stenosis of the superior mesenteric artery. Lactic acid within normal limits and patient did not have acute abdomen on exam. He was evaluated by GI, Dr. Rogel, and underwent EGD 09/05/20 which demonstrated a mild gastritis. He was started on PPI. He is from [place], [place] and is moving to this area in the next 3 weeks and needs to establish care with other care providers here. I have spoken with Dr Simmons, vascular surgeon at [place], regarding the SMA stenosis and her office contact information is provided to Mr. Enciso to make a new patient appointment with vascular surgery. He is also provided a list of primary care providers in the area to make an appointment with. He is feeling well and is hemodynamically stable for discharge 09/05/20. Patient with history of CAD s/p coronary stenting 2 months ago presents for evaluation of intermittent midsternal/upper abdominal burning pain. Pain appears of GI etiology. Trops negative x 3, EKG without ischemic changes. Evaluated by cardiology. He remains on DAPT for recent coronary stenting and this should not be stopped. (2) Abdominal pain: Code(s): R10.9 - Unspecified abdominal pain Status: Acute Assessment and Plan: Epigastric/ left upper quadrant discomfort. Reports dark stools. PPI BID. He described the burning sometimes gets worse after meals. Improved with GI cocktail. History of GI bleed in the past he is unsure of the cause. EGD with mild gastritis 09/05. (3) Mesenteric artery stenosis: Code(s): K55.1 - Chronic vascular disorders of intestine Status: Acute Assessment and Plan: CT abd/pelvis shows evidence of superior mesenteric artery stenosis. Recommend outpatient vascular surgery follow up - I spoke with Dr Simmons and provided her contact information for him to make an appointment. (4) Chronic GERD: Code(s): K21.9 - Gastro-esophageal reflux disease without esophagitis Status: Chronic Assessment and Plan: PPI. (5) Hyperlipidemia: Code(s): E78.5 - Hyperlipidemia, unspecified Status: Chronic Assessment and Plan: On gemfibrozil which was stopped by cardiology and he was started on very low dose statin therapy by cardiology recommendations. (6) Hypertension: Code(s): I10 - Essential (primary) hypertension Status: Chronic Assessment and Plan: BP stable/ lower end. Continue his home metoprolol. DS: Summary Hospital Course Hospital Course: See above. Time Spent with Patient Time attestation: Total time spent providing and/or coordinating discharge services: 35 minutes Exam Narrative: Exam Narrative: General: Male resting comfortably resting sitting up in bed in no acute distress, about to eat breakfast. HEENT: Normocephalic, EOMI, oral mucosa moist. Cardiovascular: Rate and rhythm are regular. Respiratory: Lungs clear to auscultation bilaterally. Respirations even and non-labored. Tolerating room ai
== END 2020-09-05 17:42 | disposition home or self-care (01) ==
LOC: ANHED 17:49 → ANHIMU 18:04 → ANH2MED 09-05 16:27
PROVIDERS: Emergency Medicine Emergency Medical Services; Internal Medicine Gastroenterology; Nurse Practitioner; Admitting Provider Internal Medicine; Emergency Provider Emergency Medicine; Visit Provider Physician Assistant
PROC: 0DJ08ZZ Inspection of Upper Intestinal Tract, Via Natural or Artificial Opening Endoscopic (ICD-10-PCS; CPT 43235; principal; 2020-09-05 12:15)
DX: R07.9 Chest pain, unspecified (principal); K29.70 Gastritis, unspecified, without bleeding; R10.12 Left upper quadrant pain; K55.1 Chronic vascular disorders of intestine; I49.1 Atrial premature depolarization; I25.10 Atherosclerotic heart disease of native coronary artery without angina pectoris; I10 Essential (primary) hypertension; E78.5 Hyperlipidemia, unspecified; H40.9 Unspecified glaucoma; K21.9 Gastro-esophageal reflux disease without esophagitis; Z87.891 Personal history of nicotine dependence; Z79.82 Long term (current) use of aspirin; Z79.02 Long term (current) use of antithrombotics/antiplatelets; Z95.5 Presence of coronary angioplasty implant and graft; Z79.899 Other long term (current) drug therapy
CPT/HCPCS: 43239; 36415; 71046; 74174; 74177; 80048; 80061; 83036; 83605; 83735; 84484; 85014; 85018; 85025; 85610; 85730; 88305; 93005; 93306; 96361; 96365; 96374; 96375; 96376; 99285; A9270; C9113; G0378; J2704; J3475; J7040; J7120; Q9967

== ENCOUNTER 2020-12-07 09:46 | Observation (INO) | payer MEDICARE, SELFPAY ==
[2020-12-07] VITALS (31 sets, daily range): BP systolic 124–145; BP diastolic 62–81; PULSE 52–73; RESP 12–21; TEMP 36.2–36.6; O2SAT 96–100; BMI 22.7
--- NOTE | ~2020-12-07 | XR_ITS ---
EXAMINATION: XR chest 2V 12/07/2020 11:00 INDICATION: Chest pain PROCEDURE: 2 view chest COMPARISON: 09/03/2020 FINDINGS: The lungs are clear. The cardiomediastinal silhouette is within normal limits. There are no pleural effusions. There is no pneumothorax suspected. IMPRESSION: 1: NO ACUTE CARDIOPULMONARY DISEASE. Reviewed, dictated and finalized at location B.
--- NOTE | ~2020-12-07 | NM_ITS ---
EXAMINATION: NM med stress w perfusion DATE: 12/08/2020 14:20 INDICATION: Coronary artery disease. Chest pain. TECHNIQUE: Rest images were obtained following intravenous administration of 9.5 mCi Tc99m tetrofosmi n (Myoview). The patient was infused intravenously with Lexiscan (Regadenoson). Then, 29.3 mCi Tc99m tetrofosmin (Myoview) was administered intravenously, and stress images were obtained. Data was recon structed into short axis and horizontal and vertical long axis SPECT images. Gated SPECT images were also obtained. COMPARISON: None. FINDINGS: There is mild decreased activity along the mid inferior and apical inferior segments of the left ventricle which is computer score on the stress. Although visually similar not on the rest imag es which is equivocal for diaphragmatic attenuation artifact versus less likely either ischemia or in farct. On the rotating source post stress images on which the left ventricle is imaged en face there is no evident decreased uptake along the inferior wall which would favor diaphragmatic attenuation ar tifact. There is normal left ventricular chamber size, wall motion and ejection fraction. Left ventr icular ejection fraction measures 66%. IMPRESSION: 1. Small region of mild decreased activity along the apical inferior and mid inferior segments equivo denton for either diaphragmatic attenuation artifact or ischemia versus infarct. Based upon the rotating stress images would favor ectatic attenuation artifact. 2. Left ventricular ejection fraction measuring 66%. Reviewed, dictated and finalized at location A. IMPRESSION: 1. Small region of mild decreased activity along the apical inferior and mid in ferior segments equivocal for either diaphragmatic attenuation artifact or isch emia versus infarct. Based upon the rotating stress images would favor ectatic attenuation artifact. 2. Left ventricular ejection fraction measuring 66%.
--- NOTE | 2020-12-07 10:14 | ECG_ITS ---
Measurements Intervals [place] Rate: 63 P: -6 GA: 177 QRS: -29 QRSD: 101 T: 50 QT: 374 QTc: 383 Interpretive Statements SINUS RHYTHM NORMAL ECG Electronically Signed On 12-07-2020 12:07:55 CDT by Kei Gonzalez D.O.
[2020-12-07 10:23] LABS: Basophils Absolute Auto 0.1 K/mm3 (0.0-0.1); Basophils Percent Auto 0.7 % (0.2-1.2); Eosinophils Absolute Auto 0.1 K/mm3 (0-0.3); Eosinophils Percent Auto 1.3 % (0-4.4); Hematocrit 38.3 % (42.0-52.0); Hemoglobin 12.7 g/dL (14.0-18.0); Immature Granulocyte Absolute 0.04 K/mm3 (0.00-0.031); Immature Granulocyte Percent A 0.5 % (0-0.5); Lymphocytes Absolute Auto 0.92 K/mm3 (0.9-3.2); Lymphocytes Percent Auto 10.9 % (18.3-44.2); Mean Corpuscular HGB Conc 33.2 g/dl (32-36); Mean Corpuscular Hemoglobin 32.1 pg (26-34); Mean Corpuscular Volume 96.7 fl (80-100); Mean Platelet Volume 9.1 fl (7.4-10.4); Monocytes Absolute Auto 0.7 K/mm3 (0.1-0.6); Monocytes Percent Auto 8.3 % (2.6-8.5); Neutrophils Absolute Auto 6.6 K/mm3 (1.3-6.7); Neutrophils Percent Auto 78.3 % (45.5-73.1); Platelet Count Result 245 k/mm3 (150-375); Red Blood Count 3.96 M/mm3 (4.6-6.20); Red Cell Distribution Width 13.3 % (11.5-14.5); White Blood Count 8.4 K/mm3 (4.5-10.0)
[2020-12-07 10:33] LABS: Anion Gap 9 mmol/L (8-16); Blood Urea Nitrogen 10 mg/dL (9-20); Calcium 9.5 mg/dL (8.4-10.2); Carbon Dioxide 26 mmol/L (22-30); Chloride 105 mmol/L (98-107); Estimated CRCL calculation 53 ml/min; Estimated Glomerular Filt Rate > 60; Glucose 146 mg/dL (65-110); Potassium 4.5 mmol/L (3.4-5.0); Prothrombin Time 12.6 Seconds (11.1-14.7); Sodium 140 mmol/L (137-145)
[2020-12-07 10:34] LABS: Partial Thromboplastin Time 25.7 SECONDS (22.3-36.8)
[2020-12-07 10:45] LABS: Troponin I < 0.012 ng/mL (0.000-0.034)
[2020-12-07] MEDS: ASPIRIN 81 MG CHEWABLE TABLET 324 MG PO (11:05)
--- NOTE | 2020-12-07 11:13 | PC.NURSE ---
Pt states he has been experiencing chest pain [id number], pain has increased within the last 4days, pt states he has a hx of 4 stents in june, pt states that he has been moving and increasing more stress lately, pt he has been SOB with exertion, pt A&Ox4
--- NOTE | 2020-12-07 12:22 | ED.CHESTPAIN ---
HPI - Chest Pain General Chief Complaint: Chest Pain Stated Complaint: chest pain for couple weeks Time Seen by Provider: 12/07/20 10:57 History of Present Illness HPI narrative: Patient is an 80-year-old male who presents ER with episodic chest pain. Central and pressure/tightness. No radiation. Associate with nausea. No heartburn or poor taste in his mouth. Worse with stress. Reports exertional dyspnea that is chronic. Had percutaneous coronary intervention performed 06/2020 in [facility]. Has recently moved to [facility]. Reports compliance with home medications. Patient has not tried any nitroglycerin for his discomfort. Symptoms last 5 hours at a time when they occur. Related Data Home Medications Medication Instructions Recorded Confirmed clopidogrel [Plavix] 75 mg PO DAILY 09/03/20 12/07/20 atorvastatin 40 mg PO HS 12/07/20 12/07/20 gemfibrozil 600 mg PO BID 12/07/20 12/07/20 levetiracetam 1,000 mg PO BID 12/07/20 12/07/20 Allergies Allergy/AdvReac Type Severity Reaction Status Date / Time No Known Allergies Allergy Verified 09/05/20 11:00 Review of Systems Review of Systems: All systems reviewed & are unremarkable except as noted in HPI and below Constitutional: Constitutional: Denies chills, Denies fever(s) and Denies weakness ENT: Denies nasal congestion and Denies sore throat Cardiovascular: Cardiovascular: Reports chest pain, Denies rapid heart rate and Denies radiating jaw, neck or arm pain Respiratory: Respiratory: Denies cough, Reports dyspnea and Denies wheezing Gastrointestinal: Gastrointestinal: Denies abdominal pain, Denies diarrhea, Reports nausea and Denies vomiting Musculoskeletal: Musculoskeletal: Denies back pain and Denies muscle cramps PMFSH Past Medical History Medical History Chronic GERD Coronary artery disease Gastritis Glaucoma 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 He had 5 children. And lives with his 2nd who is a durable power assistant county attorney for healthcare. 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 code status full code. Smoking packs per day: 0.5 Smoking cigarettes per day: 10.0 Years smoked: 15 Smoking pack-years: 7.50 Smoking status: Former smoker Tobacco type: cigarettes and smokeless tobacco Second hand tobacco smoke exposure: Yes Alcohol intake: never Substance use: never Substance use type: does not use Spiritual care concerns: No Exam Narrative: GENERAL: Well-appearing, well-nourished, and in no acute distress. HEAD: Normocephalic, atraumatic. EYES: PERRL and EOMI. CHEST: Clear to auscultation. No respiratory distress. HEART: Regular rate and rhythm. Normal peripheral pulses. ABDOMEN: Soft, nontender, nondistended. EXTREMITIES: Normal range of motion. No edema. SKIN: Warm, dry, no rash. NEURO: Alert and oriented x3. PSYCH: Normal mood and affect. Course Course Emergency Course: Informed results. Admit to hospitalist for observation. Vital Signs Vital signs: Vital Signs Temperature 97.2 F L 12/07/20 10:10 Pulse Rate 66 12/07/20 10:10 Respiratory Rate 18 12/07/20 10:10 Blood Pressure 135/80 12/07/20 10:10 Pulse Oximetry 96 12/07/20 10:10 Temperature 97
--- NOTE | 2020-12-07 13:45 | PC.NURSE ---
Attempted to call report x1, Kristen MARTINEZ informed me that IMU RN went to test with pt, will attempt again 15mins
--- NOTE | 2020-12-07 14:21 | PC.NURSE ---
This patient, Ramiro Enciso, was admitted to IMU Room 205-01. Patient/family oriented to hospital policies and general routines including ID bracelet, bed and alarms, visiting hours, pain management, procedures, bathroom and other care routines, personal items, smoking policy, room service/diet, and visiting hours. Information on how to activate the Rapid Response Team has been discussed. Patient/Family are encouraged to report perceived risks to care and to ask questions if they do not understand what they are told or what they should do.
[2020-12-07 14:42] LABS: Troponin I < 0.012 ng/mL (0.000-0.034)
--- NOTE | 2020-12-07 15:23 | PM.IMHP ---
H&P: HPI History of Present Illness Date/Time: 12/07/20 15:23 This is a 80-year-old male patient who has the past medical history of coronary artery disease with recent coronary stenting June 2020 at an outside facility in [place] where he stated that he received for coronary stents. He has also had a history of prior GI bleed which he was evaluated for this hospital Michelle of this year. The patient had a CT scan of the abdomen and pelvis at that time which shows a stenosis of the superior mesenteric artery. The patient stated that his appointment With Dr. Corona vascular surgeon was canceled because he had not had a referral. The patient had an EGD performed on 09/05/2020 which demonstrated a mild gastritis. He was started on a PPI. The patient is initially from the [facility] and recently moved back to [facility]. The patient stated he has been taking all of his medications prescribed. The patient came to the emergency room today for episodic chest pain. The patient stated that it was central and it felt like a pressure tightness. It did not radiate up his neck or down his arms. Patient stated that his cardiac catheterization and cardiac stents were performed at [facility]. The patient's symptoms lasted for approximately 5 hours. The patient stated as long as he is resting he does not have any pain 79 stated that sometimes he has discomfort when he ambulates. Two sets of cardiac enzymes are negative so far. EKG was read as sinus rhythm. The patient no longer has any complaints of chest pain or shortness of breath. Chest x-ray was read as no acute cardiopulmonary disease. The patient was given full-strength aspirin in the emergency room. The patient is being admitted to observation status on the date of service of 12/07/2020. Chief Complaint: Chest pain Review of Systems Review of Systems: All systems reviewed & are unremarkable except as noted in HPI and below Constitutional: Constitutional: Reports as per HPI and Reports no additional constitutional complaints Eyes: Eyes: Reports as per HPI and Reports no additional eye complaints ENT: Reports system reviewed and no additional complaints, except as documented and Reports Normal hearing present Cardiovascular: Cardiovascular: Reports no additional cardiovascular complaints Respiratory: Respiratory: Reports no additional respiratory complaints and Reports no additional respiratory complaints Gastrointestinal: Gastrointestinal: Reports as per HPI and Reports no additional gastrointestinal complaints Musculoskeletal: Musculoskeletal: Reports no additional musculoskeletal complaints Integumentary/Breasts: Skin/Breast: Reports system reviewed and no additional complaints, except as docu and Reports as per HPI Neurologic: Reports system reviewed and no additional complaints, except as documented, Reports as per HPI and Reports Normal hearing present Psychiatric: Psychiatric: Reports no additional psychiatric complaints and Reports as per HPI Endocrine: Endocrine: Reports no additional endocrine complaints Hematologic/Lymphatic: Hematologic/Lymphatic: Reports no additional hematologic/lymphatic complaints Allergic/Immunologic: Allergic/Immunologic: Reports no additional allergic/immunologic complaints PMFSH Past Medical History Medical History Chronic GERD Coronary artery disease Gastritis Glaucoma 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
[2020-12-07 17:02] LABS: Troponin I < 0.012 ng/mL (0.000-0.034)
[2020-12-07] MEDS: gemfibroziL 600 MG TABLET PO (17:29)
[2020-12-07] MEDS: levETIRAcetam 500 MG TABLET 1000 MG PO (20:47)
[2020-12-07] MEDS: ATORVASTATIN 40 MG TABLET PO (20:47)
[2020-12-07] MEDS: METOPROLOL TARTRATE 50 MG TAB PO (20:48)
[2020-12-08] VITALS (17 sets, daily range): BP systolic 134–146; BP diastolic 64–88; PULSE 53–80; RESP 14–20; TEMP 36.2–36.9; O2SAT 96–100
--- NOTE | 2020-12-08 | EST_ITS ---
Patient Info Name: Ramiro Enciso Age: 80 years : 1940 Gender: Male Ht: 70 in Wt: 156 lbs BSA: 1.87 m2 HR: 74 bpm BP: 139 / 79 mmHg Heart Rhythm: Sinus Rhythm Exam Date: 12/08/2020 1:21 PM Exam Location: [facility] Stress Patient Status: Outpatient Admit Date: 12/07/2020 Staff Ordering Physician: Aung Rick MD Attending Provider: Nancy Barnhart PA-C Exercise Technologist: Joleen Aguilera CT Exercise Physician: Aung Rick MD Exam Type: CA stress med w NM Study Info Indications I25.10 - Atherosclerotic heart disease of [place] coronary artery without angina pectoris R07.9 - Chest pain, unspecified A regadenoson stress test was performed. Summary 1. Normal sinus rhythm. 2. Leftward axis. 3. No abnormal ST/T wave changes with exercise. 4. Clinically and electrocardiographically uneventful Lexiscan stress test. 5. Myocardial perfusion exam to be dictated by the Radiology Department. Protocol: Lexiscan Stress ECG Details Stage: REST Duration (min): 1 min : 1 sec HR (bpm): 75 SBP (mmHg): 139 DBP (mmHg): 79 Stage: REST Duration (min): 11 min : 25 sec HR (bpm): 71 SBP (mmHg): 139 DBP (mmHg): 79 Stage: STAGE 1 Duration (min): 0 min : 59 sec HR (bpm): 80 SBP (mmHg): 147 DBP (mmHg): 82 Stage: RECOVERY Duration (min): 1 min : 0 sec HR (bpm): 103 SBP (mmHg): 147 DBP (mmHg): 82 Stage: RECOVERY Duration (min): 2 min : 0 sec HR (bpm): 105 SBP (mmHg): 147 DBP (mmHg): 82 Stage: RECOVERY Duration (min): 3 min : 0 sec HR (bpm): 97 SBP (mmHg): 158 DBP (mmHg): 82 Stage: RECOVERY Duration (min): 3 min : 57 sec HR (bpm): 91 SBP (mmHg): 158 DBP (mmHg): 82 Rest HR: 71 bpm Peak HR: 114 bpm Rest Sys BP: 139 mmHg Peak Sys BP: 158 mmHg Max Pred HR: 139 bpm % Max Pred HR: 82 % Target HR: 118 bpm Max RPP: 18,012 bpm*mmHg Termination Reason: Completed protocol Cardiac Symptoms: None Total Time: 1 min : 0 sec Rest Thompson BP: 79 mmHg Peak Thompson BP: 82 mmHg Total Dose: 0.4 mg Resting ECG Normal sinus rhythm. Leftward axis. Stress ECG No abnormal ST/T wave changes with exercise. Arrhythmias None. Report Signatures
[2020-12-08 04:58] LABS: Basophils Absolute Auto 0.1 K/mm3 (0.0-0.1); Basophils Percent Auto 1.3 % (0.2-1.2); Eosinophils Absolute Auto 0.2 K/mm3 (0-0.3); Eosinophils Percent Auto 4.2 % (0-4.4); Hematocrit 37.5 % (42.0-52.0); Hemoglobin 12.7 g/dL (14.0-18.0); Immature Granulocyte Absolute 0.02 K/mm3 (0.00-0.031); Immature Granulocyte Percent A 0.4 % (0-0.5); Lymphocytes Absolute Auto 1.32 K/mm3 (0.9-3.2); Lymphocytes Percent Auto 27.8 % (18.3-44.2); Mean Corpuscular HGB Conc 33.9 g/dl (32-36); Mean Corpuscular Hemoglobin 32.3 pg (26-34); Mean Corpuscular Volume 95.4 fl (80-100); Mean Platelet Volume 9.2 fl (7.4-10.4); Monocytes Absolute Auto 0.5 K/mm3 (0.1-0.6); Monocytes Percent Auto 10.8 % (2.6-8.5); Neutrophils Absolute Auto 2.6 K/mm3 (1.3-6.7); Neutrophils Percent Auto 55.5 % (45.5-73.1); Platelet Count Result 231 k/mm3 (150-375); Red Blood Count 3.93 M/mm3 (4.6-6.20); Red Cell Distribution Width 13.1 % (11.5-14.5); White Blood Count 4.7 K/mm3 (4.5-10.0)
[2020-12-08 05:19] LABS: Alanine Aminotransferase 14 U/L (4-50); Alkaline Phosphatase 67 U/L (38-126); Anion Gap 8 mmol/L (8-16); Aspartate Amino Transferase 25 U/L (17-59); Bilirubin,Total 0.7 mg/dL (0.2-1.3); Blood Urea Nitrogen 10 mg/dL (9-20); Calcium 9.7 mg/dL (8.4-10.2); Carbon Dioxide 28 mmol/L (22-30); Chloride 105 mmol/L (98-107); Estimated CRCL calculation 57 ml/min; Estimated Glomerular Filt Rate > 60; Glucose 87 mg/dL (65-110); Magnesium 1.8 mg/dL (1.6-2.3); Potassium 4.1 mmol/L (3.4-5.0); Sodium 141 mmol/L (137-145)
[2020-12-08] MEDS: gemfibroziL 600 MG TABLET PO ×2 (06:35→15:41)
--- NOTE | 2020-12-08 08:48 | PM.CNCAR ---
Assessment and Plan Additional Plan This is a very pleasant 80-year-old man known to have coronary artery disease with previous percutaneous revascularization at an outlying hospital P earlier this year. He now has symptoms of intermittent discomfort that are of course concerning for myocardial ischemia. There is no evidence of an acute coronary syndrome according to his ECG and biomarkers. It is somewhat reassuring that he states the symptoms are not exertional as well. I am going to request a Lexiscan nuclear stress test for an ischemia workup to be done today. Further recommendations will be pending completion of that exam. His medical regimen otherwise is appropriate with dual anti-platelet therapy beta-blockers and statins. Aung Rick MD [facility] History of Present Illness History of Present Illness Consult date/time: 12/08/20 08:48 Consult reason: chest pain Reason For Visit: Chest Pain Narrative: This is a pleasant his 80-year-old man I am seeing at the request of the hospitalist because of chest pain. The patient came to the emergency room yesterday afternoon with symptoms of intermittent chest pain for several days describing it as a low substernal to mid epigastric burning sensation that would come and go for several days without any apparent at the factors. The patient states he is fine continuing his normal reasonably active lifestyle without any symptoms of exertional discomfort. He mentioned these symptoms to his and was brought to the emergency room last afternoon. In the emergency department his electrocardiogram looks benign he had normal biomarkers and was admitted to the IMU for observation. Since being in the hospital he has not had any further symptoms his troponin levels are negative x3 sets. I have not seen this patient previously he was seen however by my partner several months ago when he was in the hospital here with some discomfort as well. At that time it was felt to be very atypical of angina and ischemia workup was not pursued. He apparently is known to have coronary artery disease diagnosed recently earlier this year when he was living in the [facility] area. He presented to the hospital in his local town with symptoms and was apparently brought to the cardiac label remover and found to have significant disease. He had staged intervention of 2 of his coronary arteries the details of which we do not have at our availability as none of this care was delivered at [facility]. He states that he had symptoms of chest discomfort at that time that were similar to this but were exertional at that time. Although symptoms did resolve following his revascularization procedure. He stated that he and his decided to moved back to this area between at that procedure and the admission earlier this summer. They are originally from the [facility]. He is not yet established any physician follow-up in this community for his medical problems. In addition to his heart disease he is known to have hypertension non insulin-dependent diabetes and dyslipidemia. He also has a history of previous bilateral knee replacement surgery. Review of Systems Constitutional: Constitutional: Reports no additional constitutional complaints Eyes: Eyes: Reports no additional eye complaints ENT: Reports system reviewed and no additional complaints, except as documented Cardiovascular: Cardiovascular: Reports as per HPI Respiratory: Respiratory: Reports no additional respiratory complaints Gastrointestinal: Gastrointestinal: Reports nausea Musculoskeletal: Musculoskeletal: Reports arthralgias Integumentary/Breasts: Skin/Breast: Reports system reviewed and no additional complaints, except as docu Endocrine: Endocrine: Reports no additional endocrine complaints Hematologic/Lymphatic: Hematologic/Lymphatic: Reports no additional hematologic/lymphatic complaints Allergic/Immunologic: Allergic/Immunologic: Reports no additional
[2020-12-08] MEDS: PANTOPRAZOLE 40 MG TABLET PO (15:41)
[2020-12-08] MEDS: CLOPIDOGREL BISULFATE 75 MG TABLET PO (15:41)
--- NOTE | 2020-12-08 15:41 | PM.IMPN ---
Progress Note: A&P Assessment and Plan (1) Chest pain: Code(s): R07.9 - Chest pain, unspecified Status: Acute Assessment and Plan: Presented with midsternal chest pain and history of recent PCI in June 2020. Pain resolved on my evaluation Appreciate consultation to Cardiology Troponin negative x3 EKG without evidence of ischemic changes Chest pain has resolved at this time Awaiting results of Lexiscan stress test Echocardiogram reviewed from August 2020 (2) Coronary artery disease: Code(s): I25.10 - Atherosclerotic heart disease of [place] coronary artery without angina pectoris Status: Chronic Assessment and Plan: Reports recent placement of 4 cardiac stents at outside hospital in [place]. 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 Simmons by previous hospitalist at last hospitalization in August 2020. The patient reports he went to an appointment but was told he could not be seen as there was no referral. Prior to discharge, will contact Dr. Simmons's office to schedule appointment. He is asymptomatic at this time. (5) Hypertension: Code(s): I10 - Essential (primary) hypertension Status: Chronic Assessment and Plan: Blood pressure reviewed and has been generally well controlled. Last BP 139/64 Continue metoprolol Monitor blood pressure trends (6) Diabetes mellitus: Code(s): E11.9 - Type 2 diabetes mellitus without complications Status: Acute Assessment and Plan: Diet controlled. He is not on any antihypertensives Check updated A1c Initiate Accu-Cheks, sliding scale insulin, hypoglycemic protocol Subjective Date/time seen: 12/08/20 15:41 Interval history: Date of service: 12/08/2020 Ramiro Enciso is an 80-year-old male with a history of coronary artery disease s/p cardiac stent in June 2020, CVA, GERD, hypertension, hyperlipidemia, and diabetes mellitus who is seen in follow-up for chest pain. On my evaluation this morning, he is no longer endorsing chest pain but did describe a pressure sensation in the midsternal region with intermittent burning. He wondered if it could be related to stress from his recent move to this area from [place]. He denied associated nausea, vomiting, sweats, arm or jaw pain. He denies abdominal pain. Denies postprandial pain. His appetite has been good. Denies shortness breath, cough, wheezing, orthopnea. No palpitations. Denies urinary symptoms. He has no additional concerns at this time. Review of Systems Review of Systems: All systems reviewed & are unremarkable except as noted in HPI and below Exam Narrative: Mr. Enciso is a well-nourished, well-appearing 80-year-old male who is lying supine in bed. He appears comfortable and is in NARD. Neuro: awake, alert and oriented x4, speech clear, no focal neuro deficits noted HEENMT: normocephalic, atraumatic, EOMI, sclerae anicteric, moist oral mucosa Neck: supple, no lymphadenopathy Chest: No reproducible chest wall tenderness Respiratory: clear to auscultation bilaterally, nonlabored breathing Cardio: regular rate, regular rhythm with S1-S2 Abdomen: nondistended, normoactive bowel sounds, soft, nontender to palpation Extremities: no edema, erythema, or tenderness to palpation, DP pulses 2+ bilaterally Skin: no rashes or lesions, warm and dry Psych: appropriate mood and affect, judgment and insigh
[2020-12-08 17:11] LABS: Glucose Point of Care 100 mg/dl (65-105)
[2020-12-08] MEDS: ATORVASTATIN 40 MG TABLET PO (20:59)
[2020-12-08] MEDS: levETIRAcetam 500 MG TABLET 1000 MG PO (20:59)
[2020-12-08] MEDS: METOPROLOL TARTRATE 50 MG TAB PO (21:00)
[2020-12-08 21:38] LABS: Glucose Point of Care 119 mg/dl (65-105)
[2020-12-09] VITALS (9 sets, daily range): BP systolic 117–139; BP diastolic 61–79; PULSE 57–76; RESP 12–21; TEMP 36.2–37; O2SAT 97–99
[2020-12-09 06:19] LABS: Hematocrit 39.5 % (42.0-52.0); Hemoglobin 13.3 g/dL (14.0-18.0); Mean Corpuscular HGB Conc 33.7 g/dl (32-36); Mean Corpuscular Hemoglobin 31.9 pg (26-34); Mean Corpuscular Volume 94.7 fl (80-100); Mean Platelet Volume 9.2 fl (7.4-10.4); Platelet Count Result 276 k/mm3 (150-375); Red Blood Count 4.17 M/mm3 (4.6-6.20); Red Cell Distribution Width 13.2 % (11.5-14.5); White Blood Count 6.7 K/mm3 (4.5-10.0)
[2020-12-09] MEDS: gemfibroziL 600 MG TABLET PO (06:35)
[2020-12-09 06:36] LABS: Anion Gap 9 mmol/L (8-16); Blood Urea Nitrogen 12 mg/dL (9-20); Calcium 9.9 mg/dL (8.4-10.2); Carbon Dioxide 29 mmol/L (22-30); Chloride 102 mmol/L (98-107); Estimated CRCL calculation 57 ml/min; Estimated Glomerular Filt Rate > 60; Glucose 99 mg/dL (65-110); Potassium 4.5 mmol/L (3.4-5.0); Sodium 140 mmol/L (137-145)
[2020-12-09 08:16] LABS: Hemoglobin A1C 5.3 % (<5.7)
[2020-12-09] MEDS: levETIRAcetam 500 MG TABLET 1000 MG PO (09:03)
[2020-12-09] MEDS: PANTOPRAZOLE 40 MG TABLET PO (09:04)
[2020-12-09] MEDS: METOPROLOL TARTRATE 50 MG TAB PO (09:04)
[2020-12-09] MEDS: CLOPIDOGREL BISULFATE 75 MG TABLET PO (09:04)
[2020-12-09 09:17] LABS: Glucose Point of Care 88 mg/dl (65-105)
--- NOTE | 2020-12-09 11:25 | PM.PNCARD ---
Progress Note: A&P Assessment and Plan (1) Coronary artery disease: Code(s): I25.10 - Atherosclerotic heart disease of [place] coronary artery without angina pectoris Status: Chronic Assessment and Plan: Stress test is probably normal. Cannot exclude small amount of ischemia though completely according to the reading. Regardless not a large area of ischemia and at this point, I think it is reasonable to treat this medically and have him follow-up with Dr. Rick as an outpatient. His medical reconciliation is missing aspirin which he takes daily as an outpatient. I will start him on aspirin 81 mg p.o. daily. His clopidogrel will be continued. Atorvastatin, metoprolol will also be continued. I will add low-dose isosorbide mononitrate also at 30 mg daily.. He can be discharged from cardiac perspective (2) Chest pain: Code(s): R07.9 - Chest pain, unspecified Status: Acute Assessment and Plan: As above (3) Hyperlipidemia: Code(s): E78.5 - Hyperlipidemia, unspecified Status: Chronic Assessment and Plan: On statin (4) Hypertension: Code(s): I10 - Essential (primary) hypertension Status: Chronic Assessment and Plan: At reasonable control Subjective Date/time seen: 12/09/20 11:25 Interval history: Date of service: 12/08/2020 Ramiro Enciso is an 80-year-old male with a history of coronary artery disease s/p cardiac stent in June 2020, CVA, GERD, hypertension, hyperlipidemia, and diabetes mellitus who is seen in follow-up for chest pain. Date of service 12/09/2020: He is feeling okay today. No chest pain or shortness of breath. Review of Systems Constitutional: Constitutional: Reports no additional constitutional complaints Eyes: Eyes: Reports no additional eye complaints ENT: Reports system reviewed and no additional complaints, except as documented Cardiovascular: Cardiovascular: Reports as per HPI Respiratory: Respiratory: Reports no additional respiratory complaints Gastrointestinal: Gastrointestinal: Reports nausea Musculoskeletal: Musculoskeletal: Reports arthralgias Integumentary/Breasts: Skin/Breast: Reports system reviewed and no additional complaints, except as docu Endocrine: Endocrine: Reports no additional endocrine complaints Hematologic/Lymphatic: Hematologic/Lymphatic: Reports no additional hematologic/lymphatic complaints Allergic/Immunologic: Allergic/Immunologic: Reports no additional allergic/immunologic complaints Exam Const: General: comfortable and no acute distress Other: Pleasant elderly man in no obvious distress HENMT: Mouth: Yes moist mucous membranes Eyes: Sclera: sclerae normal Pupils: Equal, round and reactive pupils present Neck: Neck: supple and no JVD Resp: Effort & Inspection: normal respiratory effort Auscultation: clear to auscultation bilaterally Cardio: Rate: regular rate Rhythm: regular rhythm Other: PMI nondisplaced no murmur no gallop no rub GI: Auscultation: normal bowel sounds Skin: General skin exam: normal color Neuro: Cranial nerves: Yes Equal, round and reactive pupils present Cognition (Neuro): normal cognition Extrem: General: normal to inspection Objective Data Vital Signs Vital Signs: Vital Signs - 24 hr 12/08/20 11:37 12/08/20 12:00 12/08/20 15:59 Temperature 36.3 C L 36.5 C 36.2 C L Pulse Rate 63 65 77 Respiratory Rate 18 16 16 Blood Pressure 141/67 H 139/64 146/88 H Pulse Oximetry 99 98 98 12/08/20 16:00 12/08/20 18:00 12/08/20 20:00 Temperature 36.9 C Pulse Rate 67 64 80 Respiratory Rate 20 Blood Pressure 134/73 Pulse Oximetry 96 12/08/20 21:00 12/08/20 22:00 12/09/20 00:00 Temperature 37.0 C Pulse Rate 73 63 58 L Respiratory Rate 20 Blood Pressure 139/79 Pulse Oximetry 97 12/09/20 02:00 12/09/20 04:00 12/09/20 06:00 Temperature 36.9 C Pulse Rate 57 L 66 58 L Respiratory Rate 21 H Blood Pressure 1
[2020-12-09 13:45] LABS: Glucose Point of Care 98 mg/dl (65-105)
--- NOTE | 2020-12-09 14:29 | PM.DS ---
DS: Admitting Diagnosis Discharge Date 12/09/20 Admitting Diagnosis Chest pain DS: Discharge Diagnosis Discharge Diagnosis (1) Chest pain: Code(s): R07.9 - Chest pain, unspecified Status: Acute Assessment and Plan: Presented with midsternal chest pain and history of recent PCI in June 2020 He was seen in consultation by Cardiology Troponin negative x3 EKG without evidence of ischemic changes Had Lexiscan stress test reviewed by cardiology with possibly small amount of ischemia though not definitive. Will be managed medically with aspirin, plavix, atorvastatin, metoprolol, and started on isosorbide mononitrate. Follow up with cardiology as an outpatient. Chest pain resolved. (2) Coronary artery disease: Code(s): I25.10 - Atherosclerotic heart disease of [place] coronary artery without angina pectoris Status: Chronic Assessment and Plan: Reports recent placement of 4 cardiac stents at outside hospital in [place] in June 2020. No records available for review. Seen in consultation by cardiology. Plan as above. (3) Gastritis: Code(s): K29.70 - Gastritis, unspecified, without bleeding Status: Chronic Assessment and Plan: Evident on EGD performed in August 2020. No acute issues at this time. 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 Patient was referred to vascular surgeon Dr. Simmons by previous hospitalist at that time. The patient reports he went to the appointment but was told he could not be seen as there was no referral/insurance issues. I attempted to contact Dr. Simmons's office but unable to leave a message over the weekend. He will need referall via PCP, with whom he is in the process of establishing with. He is asymptomatic. (5) Hypertension: Code(s): I10 - Essential (primary) hypertension Status: Chronic Assessment and Plan: Blood pressure reviewed and was generally well controlled. Continue metoprolol (6) Diabetes mellitus: Code(s): E11.9 - Type 2 diabetes mellitus without complications Status: Acute Assessment and Plan: Diet controlled. He is not on any hypoglycemic agents. A1c is 5.3 DS: Summary Hospital Course Hospital Course: Date of admission: 12/07/20 Date of discharge: 12/09/20 Ramiro Enciso is an 80-year-old male with a history of coronary artery disease s/p cardiac stent in June 2020, CVA, GERD, hypertension, hyperlipidemia, and diabetes mellitus who presented to the ED from home on 12/07/20 with complaints of intermittent midsternal chest pain. On presentation, his vital signs were stable, CBC and BMP unremarkable, troponin negative, CXR showed no acute cardiopulmonary findings, and EKG showed no ischemic changes. He was admitted to the hospitalist service for further evaluation and management. Please see above for further details. He underwent Lexiscan stress test. His chest pain resolved. He was doing well and felt to no longer require inpatient care. He felt comfortable with plans for discharge home and consulting specialists in agreement. We discussed worrisome signs and symptoms for which to return and he was educated on his medications. He was dishcarged in hemodynamically stable condition on 12/09/20. Status at Discharge Functional status at discharge: independent ambulation Overall status at discharge: patient is progressing back to baseline Time Spent with Patient Time attestation: Total time spent providing and/or coordinating discharge services: 45 minutes Time spent: Greater than 30 minutes Exam Narrative: Mr. Enciso is a well-nourished, well-appearing 80-year-old male who is lying supine in bed. He appears comfortable and is in NARD. Neuro: awake, alert and oriented x4, speech clear, no
--- NOTE | 2020-12-09 15:45 | PC.NURSE ---
12/09/20 15:14 Patient discharged to home. Education was provided on follow-up and medication. Patient had no questions at this time.
== END 2020-12-09 15:14 | disposition home or self-care (01) ==
LOC: ANHED 11:08 → ANHIMU 13:10
PROVIDERS: Emergency Medicine; Nurse Practitioner; Physician Assistant; Admitting Provider Internal Medicine; Emergency Provider Emergency Medicine; PCP Internal Medicine; Visit Provider Internal Medicine
DX: R07.9 Chest pain, unspecified (principal); I25.10 Atherosclerotic heart disease of native coronary artery without angina pectoris; K29.70 Gastritis, unspecified, without bleeding; K55.1 Chronic vascular disorders of intestine; I10 Essential (primary) hypertension; E78.5 Hyperlipidemia, unspecified; E11.9 Type 2 diabetes mellitus without complications; K21.9 Gastro-esophageal reflux disease without esophagitis; Z96.653 Presence of artificial knee joint, bilateral; Z87.891 Personal history of nicotine dependence; Z79.02 Long term (current) use of antithrombotics/antiplatelets; Z95.5 Presence of coronary angioplasty implant and graft; Z86.73 Personal history of transient ischemic attack (TIA), and cerebral infarction without residual deficits
CPT/HCPCS: 36415; 71046; 78452; 80048; 80053; 82948; 83036; 83735; 84484; 85025; 85027; 85610; 85730; 93005; 93017; 99285; A9270; A9502; G0378; J2785

== ENCOUNTER 2021-06-11 10:11 | Inpatient (IN) | payer MEDICARE, SELFPAY ==
[2021-06-11] VITALS (10 sets, daily range): BP systolic 112–163; BP diastolic 54–82; PULSE 56–95; RESP 16–20; TEMP 35.9–36.3; O2SAT 96–100; BMI 24.5
--- NOTE | ~2021-06-11 | XR_ITS ---
EXAMINATION: XR chest 2V DATE: 06/11/2021 10:59 INDICATION: Midsternal chest pain. Shortness of breath. TECHNIQUE: Frontal and lateral views of the chest were obtained. COMPARISON: Chest 2 views 09/03/2020, 12/07/2020, CT abdomen and pelvis 09/05/2020 FINDINGS: There is no pneumonia, pleural effusion, pneumothorax. The heart size is normal. The brachi ocephalic vessels are tortuous. Surgical clips in the right upper quadrant are likely from cholecyste ctomy. IMPRESSION: 1. No acute cardiopulmonary disease. Reviewed, dictated and finalized at location A.
--- NOTE | 2021-06-11 10:14 | ECG_ITS ---
Measurements Intervals [place] Rate: 63 P: 41 VA: 190 QRS: -29 QRSD: 125 T: 22 QT: 383 QTc: 392 Interpretive Statements SINUS RHYTHM BORDERLINE LEFT AXIS DEVIATION [QRS AXIS < -20] RIGHT BUNDLE BRANCH BLOCK [120+ ms QRS DURATION, UPRIGHT V1, 40+ ms S IN I/aVL/V4/V5/V6] COMPARED TO ECG 12/07/2020 09:54:21 RIGHT BUNDLE-BRANCH BLOCK NOW PRESENT Electronically Signed On 06-11-2021 16:23:36 CDT by Aung Rick M.D.
[2021-06-11 10:32] LABS: Basophils Absolute Auto 0.1 K/mm3 (0.0-0.1); Basophils Percent Auto 0.8 % (0.2-1.2); Eosinophils Absolute Auto 0.2 K/mm3 (0-0.3); Eosinophils Percent Auto 2.9 % (0-4.4); Hematocrit 40.3 % (42.0-52.0); Hemoglobin 12.9 g/dL (14.0-18.0); Immature Granulocyte Absolute 0.03 K/mm3 (0.00-0.031); Immature Granulocyte Percent A 0.4 % (0-0.5); Lymphocytes Percent Auto 15.1 % (18.3-44.2); Mean Corpuscular Hemoglobin 31.3 pg (26-34); Mean Corpuscular Volume 97.8 fl (80-100); Mean Platelet Volume 8.8 fl (7.4-10.4); Monocytes Absolute Auto 0.8 K/mm3 (0.1-0.6); Monocytes Percent Auto 10.3 % (2.6-8.5); Neutrophils Absolute Auto 5.1 K/mm3 (1.3-6.7); Neutrophils Percent Auto 70.5 % (45.5-73.1); Platelet Count Result 245 k/mm3 (150-375); Red Blood Count 4.12 M/mm3 (4.6-6.20); Red Cell Distribution Width 12.8 % (11.5-14.5); White Blood Count 7.3 K/mm3 (4.5-10.0)
[2021-06-11 10:42] LABS: Alanine Aminotransferase 14 U/L (4-50); Albumin Level 4.3 g/dL (3.5-5.1); Alkaline Phosphatase 114 U/L (38-126); Anion Gap 8 mmol/L (8-16); Aspartate Amino Transferase 31 U/L (17-59); Bilirubin,Total 0.4 mg/dL (0.2-1.3); Blood Urea Nitrogen 13 mg/dL (9-20); Calcium 9.3 mg/dL (8.4-10.2); Carbon Dioxide 27 mmol/L (22-30); Chloride 101 mmol/L (98-107); Estimated Glomerular Filt Rate > 60; Glucose 150 mg/dL (65-110); Lipase 246 U/L (23-300); Potassium 4.6 mmol/L (3.4-5.0); Sodium 136 mmol/L (137-145)
[2021-06-11 10:43] LABS: Partial Thromboplastin Time 28.9 SECONDS (22.3-36.8)
[2021-06-11 10:53] LABS: Troponin I < 0.012 ng/mL (0.000-0.034)
--- NOTE | 2021-06-11 13:28 | ED.CHESTPAIN ---
HPI - Chest Pain General Chief Complaint: Chest Pain Stated Complaint: chest pain Time Seen by Provider: 06/11/21 13:24 Source: patient Mode of arrival: ambulatory Limitations: no limitations History of Present Illness HPI narrative: Patient is an 80-year-old male complaining of chest pain, midsternal, sharp, 6 out of 10, currently denies any pain, radiating to left arm that started 3 days ago. Patient denies any shortness of breath, abdominal pain, nausea, vomiting, diaphoresis, fever or chills. Related Data Home Medications Medication Instructions Recorded Confirmed clopidogrel [Plavix] 75 mg PO DAILY 09/03/20 12/07/20 atorvastatin 40 mg PO HS 12/07/20 12/07/20 gemfibrozil 600 mg PO BID 12/07/20 12/07/20 levetiracetam 1,000 mg PO BID 12/07/20 12/07/20 Allergies Allergy/AdvReac Type Severity Reaction Status Date / Time No Known Allergies Allergy Verified 09/05/20 11:00 Review of Systems Review of Systems: All systems reviewed & are unremarkable except as noted in HPI and below Constitutional: Constitutional: Denies body ache(s), Denies chills, Denies excessive sweating, Denies fatigue, Denies fever(s), Denies headache(s), Denies lethargy, Denies malaise, Denies weakness and Denies weight loss Eyes: Eyes: Denies blurry vision, Denies change in vision and Denies loss of vision ENT: Denies dizziness, Denies ear discharge, Denies headache(s), Denies lip swelling, Denies epistaxis, Denies nasal congestion, Denies neck pain, Denies throat swelling and Denies tongue swelling Cardiovascular: Cardiovascular: Denies diaphoresis, Denies rapid heart rate, Denies edema, Denies irregular heart rhythm, Denies lightheadedness, Denies palpitations, Denies dyspnea and Denies dyspnea on exertion Respiratory: Respiratory: Denies chest congestion, Denies cough, Denies hemoptysis, Denies dyspnea and Denies dyspnea on exertion Gastrointestinal: Gastrointestinal: Denies abdominal pain, Denies melena, Denies hematochezia, Denies diarrhea, Denies nausea, Denies vomiting and Denies hematemesis Musculoskeletal: Musculoskeletal: Denies abnormal gait, Denies deformity, Denies joint swelling, Denies limited range of motion, Denies neck pain and Denies numbness Neurologic: Denies Abnormal speech present, Denies abnormal gait, Denies confusion, Denies dizziness, Denies headache(s), Denies focal weakness, Denies loss of vision, Denies numbness, Denies Other visual disturbances, Denies Sensory deficit (Neuro) and Denies weakness Psychiatric: Psychiatric: Denies confusion, Denies depression, Denies auditory hallucinations, Denies homicidal ideation and Denies suicidal ideation Endocrine: Endocrine: Denies cold intolerance, Denies excessive sweating, Denies fatigue, Denies heat intolerance and Denies palpitations Hematologic/Lymphatic: Hematologic/Lymphatic: Denies easy bleeding and Denies easy bruising Allergic/Immunologic: Allergic/Immunologic: Denies lip swelling, Denies throat swelling and Denies tongue swelling PMFSH Past Medical History Medical History Chronic GERD Coronary artery disease Gastritis Glaucoma 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 He had 5 children. And lives with his 2nd who is a durable power director process improvement for healthcare. 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 Used to d
[2021-06-11 13:59] LABS: Troponin I < 0.012 ng/mL (0.000-0.034)
--- NOTE | 2021-06-11 17:52 | ADMGEN ---
This patient, Ramiro Enciso, was admitted to IMU Room 203-01 at 1630. Patient/family oriented to hospital policies and general routines including ID bracelet, bed and alarms, visiting hours, pain management, procedures, bathroom and other care routines, personal items, smoking policy, room service/diet, and visiting hours. Information on how to activate the Rapid Response Team has been discussed. Patient/Family are encouraged to report perceived risks to care and to ask questions if they do not understand what they are told or what they should do.
[2021-06-11 18:54] LABS: Troponin I < 0.012 ng/mL (0.000-0.034)
--- NOTE | 2021-06-11 20:07 | PM.IMHP ---
H&P: HPI History of Present Illness Date/Time: Patient was placed observation status for expected length of stay less than 23 hours for management, will plan to re-evaluate tomorrow for improvement. 06/11/21 20:07 Chief Complaint: Chest pain Narrative: Mr. Enciso is an 80-year-old gentleman who presented emergency room with complaints of chest discomfort that has been going on off and on for 3 days. Patient states he has a known history of coronary artery disease status post stent placement was performed [facility]. 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 Patient states he has had a stent to his abdomen. Patient states over the last 3 days he has had midsternal chest discomfort that radiates up to his jaw and down both arms. Patient states he has had associated shortness of breath. Patient states that he did take a nitroglycerin yesterday and it did help his chest discomfort. Patient states he is unsure of how old his nitroglycerin is since it was from his cardiac stents that were done in [facility]. Patient states that when he did get his chest discomfort it lasted 45 minutes to an hour at a time. Patient describes pain as a pressure type feeling. Patient did deny any associated nausea, vomiting, or diaphoresis. I will see the patient has a known history of coronary artery disease status post stent placement. Patient also has a known history of multiple CVAs, dyslipidemia, and hypertension. Patient states he has been taking all medications without any difficulty including his aspirin and Plavix. Review of Systems Review of Systems: A 12 point review of systems was completed patient all pertinent positive and negative per HPI the remainder are unremarkable. 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 He had 5 children. And lives with his 2nd who is a durable power instant printer operator for healthcare. 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 code status full code. Smoking packs per day: 1 Smoking cigarettes per day: 20.0 Years smoked: 8 Smoking pack-years: 8.00 Smoking status: Former smoker Tobacco type: cigars Second hand tobacco smoke exposure: Yes Alcohol intake: never Substance use: never Substance use type: does not use Spiritual care concerns: No Meds Home Medications and Allergies Home Medications Medication Instructions Recorded Confirmed Type clopidogrel [Plavix] 75 mg PO DAILY 09/03/20 06/11/21 History metoprolol tartrate 50 mg PO Q12HR 30 Days #60 tablet 09/05/20 06/11/21 Rx pantoprazole 40 mg PO QAM 30 Days #30 tablet 09/05/20 06/11/21 Rx atorvastatin 40 mg PO HS 12/07/20 06/11/21 History gemfibrozil 600 mg PO BID 12/07/20 06/11/21 History levetiracetam 1,000 mg PO BID 12/07/20 06/11/21 History aspirin 81 mg PO QAM #30 tablet 12/09/20 06/11/21 Rx Allergies Allergy/AdvReac Type Severity Reaction Status Date / Time No Known Allergies Allergy Verified 09/05/20 11:00
[2021-06-11] MEDS: METOPROLOL TARTRATE 50 MG TAB PO (20:23)
[2021-06-11] MEDS: levETIRAcetam 500 MG TABLET 1000 MG PO (20:23)
[2021-06-11] MEDS: ATORVASTATIN 40 MG TABLET PO (20:23)
[2021-06-12] VITALS (43 sets, daily range): BP systolic 119–154; BP diastolic 53–87; PULSE 54–78; RESP 15–20; TEMP 35.6–37; O2SAT 95–100
[2021-06-12 05:12] LABS: Basophils Absolute Auto 0.1 K/mm3 (0.0-0.1); Eosinophils Absolute Auto 0.3 K/mm3 (0-0.3); Eosinophils Percent Auto 5.5 % (0-4.4); Hematocrit 39.7 % (42.0-52.0); Hemoglobin 12.6 g/dL (14.0-18.0); Immature Granulocyte Absolute 0.03 K/mm3 (0.00-0.031); Immature Granulocyte Percent A 0.5 % (0-0.5); Lymphocytes Absolute Auto 1.34 K/mm3 (0.9-3.2); Lymphocytes Percent Auto 22.9 % (18.3-44.2); Mean Corpuscular HGB Conc 31.7 g/dl (32-36); Mean Corpuscular Hemoglobin 31.2 pg (26-34); Mean Corpuscular Volume 98.3 fl (80-100); Monocytes Absolute Auto 0.7 K/mm3 (0.1-0.6); Neutrophils Absolute Auto 3.4 K/mm3 (1.3-6.7); Neutrophils Percent Auto 58.1 % (45.5-73.1); Platelet Count Result 236 k/mm3 (150-375); Red Blood Count 4.04 M/mm3 (4.6-6.20); Red Cell Distribution Width 12.7 % (11.5-14.5); White Blood Count 5.9 K/mm3 (4.5-10.0)
[2021-06-12 05:37] LABS: Anion Gap 6 mmol/L (8-16); Blood Urea Nitrogen 12 mg/dL (9-20); Calcium 9.2 mg/dL (8.4-10.2); Carbon Dioxide 29 mmol/L (22-30); Chloride 100 mmol/L (98-107); Estimated CRCL calculation 55 ml/min; Estimated Glomerular Filt Rate > 60; Glucose 90 mg/dL (65-110); Magnesium 1.8 mg/dL (1.6-2.3); Potassium 4.1 mmol/L (3.4-5.0); Sodium 135 mmol/L (137-145)
--- NOTE | 2021-06-12 08:18 | PM.IMPN ---
Progress Note: A&P Assessment and Plan (1) Chest pain: Code(s): R07.9 - Chest pain, unspecified Status: Acute Assessment and Plan: Patient's chest discomfort does sound cardiac in etiology. Previous stress test in November 2020 was negative. Will keep patient NPO as he might need cardiac evaluation either with the stress test or cardiac catheterization based on the description. He Is negative for non-STEMI with negative cardiac biomarkers (2) Hypertension: Code(s): I10 - Essential (primary) hypertension Status: Chronic Assessment and Plan: Resumed patient's home medications (3) Hyperlipidemia: Code(s): E78.5 - Hyperlipidemia, unspecified Status: Chronic Assessment and Plan: Will resume patient's home lipid medications. (4) Coronary artery disease: Code(s): I25.10 - Atherosclerotic heart disease of [place] coronary artery without angina pectoris Status: Chronic Assessment and Plan: Continue dual antiplatelet therapy statin and beta-ori as ordered Subjective Date/time seen: 06/12/21 08:18 Interval history: HPI:Mr. Enciso is an 80-year-old gentleman who presented emergency room with complaints of chest discomfort that has been going on off and on for 3 days. Patient states he has a known history of coronary artery disease status post stent placement was performed [facility]. 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 Patient states he has had a stent to his abdomen. Patient states over the last 3 days he has had midsternal chest discomfort that radiates up to his jaw and down both arms. Patient states he has had associated shortness of breath. Patient states that he did take a nitroglycerin yesterday and it did help his chest discomfort. Patient states he is unsure of how old his nitroglycerin is since it was from his cardiac stents that were done in [facility]. Patient states that when he did get his chest discomfort it lasted 45 minutes to an hour at a time. Patient describes pain as a pressure type feeling. Patient did deny any associated nausea, vomiting, or diaphoresis. I will see the patient has a known history of coronary artery disease status post stent placement. Patient also has a known history of multiple CVAs, dyslipidemia, and hypertension. Patient states he has been taking all medications without any difficulty including his aspirin and Plavix. 06/12/2021 no overnight events. Remains chest pain-free. Description of chest pain reviewed with patient. Left precordial area tightness feels like someone sitting on it associated with chills and and weakness and tingling over his upper extremity. Nitroglycerin helped. Stress test in November 2020 was negative Review of Systems Review of Systems: All systems reviewed & are unremarkable except as noted in HPI and below (HPI) Exam Narrative: Constitutional: Patient is well-nourished in no acute distress. Patient is alert and oriented x3 HEENT: Moist mucous membranes. No scleral icterus. No lymphadenopathy. Neck: No carotid bruits noted no JVD noted Lungs: Lung sounds are clear to auscultation bilaterally. No accessory muscle use. No rhonchi, rales, or wheezes noted. Cardiovascular: Apical pulse is regular rate and rhythm. S1-S2 noted, no S3 or S4 noted. No gallops, murmurs, or rubs noted. Abdomen: Soft, round, and nontender. No palpable masses. Extremities: No edema. Nontender. Skin: No rashes or lesions. Warm and dry. Skin is intact. Neurological: No focal neurological deficits. Cranial nerves II-XII grossly intact. Psychiatric: Cooperative, appropriate mood, and affect Objective Data Vital Signs Vital Signs: Vital Signs - 24 hr 06/11/21 10:26 06/11/21 16:12 06/11/21 17:54 Temper
--- NOTE | 2021-06-12 08:26 | PM.CNCAR ---
Assessment and Plan Assessment and plan (1) Chest pain: Code(s): R07.9 - Chest pain, unspecified Status: Acute Assessment and Plan: Two hospitalizations over the past year for chest pain that was felt to be atypical and did not result in any invasive cardiac workup. He also underwent a lexiscan stress test in November of 2020 that was negative. He presents now with chest pain that is concerning for myocardial ischemia. Once again during this hospitalization his troponin levels are negative and his EKG does not have any changes that are concerning for acute ischemia. However, he is describing exertional angina that is relieved by rest and is responsive to nitroglycerin and also associated with some shortness of breath and nausea. Because of these concerning symptoms will plan to arrange a coronary angiogram for him this afternoon. Further recommendations to follow. (2) Coronary artery disease: Code(s): I25.10 - Atherosclerotic heart disease of [place] coronary artery without angina pectoris Status: Chronic Assessment and Plan: Established history of CAD with previously placed stents in 2020. On appropriate medical therapy with ASA, plavix, atorvastatin. These should be continued for now. History of Present Illness History of Present Illness Consult date/time: 06/12/21 08:26 Mr. Enciso is an 80-year-old man who I am seeing at the request of Dr. Lewis because of chest pain. This is a patient who has a history of coronary artery disease with previous stent placement in 2020 at a hospital in [facility]. Records of this procedure are not available therefore details are unkown but per the patient's report he had 4 stents placed. Since that time he has presented to [facility] on a couple of occasions with complaints of chest pain. On both of these occasions his chest pain was felt to be atypical and he did not have any evidence of ACS as he had negative biomarkers and EKGs without any acute ischemic changes. He did undergo a Lexiscan stress test and November of 2020 that was negative for ischemia. He comes into the hospital once again for complaints of chest pain. He tells me that he has been experiencing some left-sided chest discomfort intermittently for about 3 weeks now. He has noticed that his chest pain occurs when he is doing things like walking down the steps, taking out the trash, and walking around the perimeter of his house. His chest pain is able to be relieved by about 10-15 minutes of rest. He also states that he had an occurrence of chest pain yesterday morning when he was sitting at the table eating breakfast. When he had chest pain yesterday morning he took a nitroglycerin and his chest pain resolved. He has noticed some shortness of breath and nausea associated with the chest pain. He is currently free from any chest discomfort and is comfortable. His workup has once again been unremarkable with negative biomarkers and EKG without any acute ischemic changes. Requesting physician: Momo Lewis MD Consult reason: chest pain Reason For Visit: Chest pain Review of Systems Constitutional: Constitutional: Denies fatigue and Denies weakness Eyes: Eyes: Denies blurry vision and Denies change in vision ENT: Reports Normal hearing present Cardiovascular: Cardiovascular: Reports chest pain, Denies diaphoresis, Denies pedal edema, Denies leg edema, Denies lightheadedness and Denies palpitations Respiratory: Respiratory: Reports dyspnea and Reports dyspnea on exertion Gastrointestinal: Gastrointestinal: Denies abdominal pain, Denies melena and Denies hematochezia Genitourinary: Genitourinary: Denies urinary frequency, Denies urinary hesitancy and Denies urinary urgency Musculoskeletal: Musculoskeletal: Denies back pain and Denies neck pain Integumentary/Breasts: Skin/Breast: Reports dry skin and Denies wounds Neurologic: Denies confusion, Reports headache(s) and Denies num
[2021-06-12] MEDS: ENOXAPARIN 40 MG/0.4 ML SYRINGE SUB-Q (08:48)
[2021-06-12] MEDS: levETIRAcetam 500 MG TABLET 1000 MG PO ×2 (08:48→20:06)
[2021-06-12] MEDS: CLOPIDOGREL BISULFATE 75 MG TABLET PO (08:48)
[2021-06-12] MEDS: METOPROLOL TARTRATE 50 MG TAB PO ×2 (08:49→20:06)
[2021-06-12] MEDS: ASPIRIN 81 MG ENTERIC TABLET PO (08:49)
[2021-06-12] MEDS: gemfibroziL 600 MG TABLET PO ×2 (08:49→18:53)
[2021-06-12] MEDS: PANTOPRAZOLE 40 MG TABLET PO (08:49)
--- NOTE | 2021-06-12 12:57 | WPDMODSED ---
Moderate Sedation Note-Pt Data Patient Data Diagnosis: Chest pain Previous percutaneous intervention Present Complaint: Intermittent chest pain Procedure to be performed/Plan: Left heart catheterization Allergies Allergy/AdvReac Type Severity Reaction Status Date / Time No Known Allergies Allergy Verified 09/05/20 11:00 Home Medications Medication Instructions Recorded Confirmed Type clopidogrel [Plavix] 75 mg PO DAILY 09/03/20 06/11/21 History metoprolol tartrate 50 mg PO Q12HR 30 Days #60 tablet 09/05/20 06/11/21 Rx pantoprazole 40 mg PO QAM 30 Days #30 tablet 09/05/20 06/11/21 Rx atorvastatin 40 mg PO HS 12/07/20 06/11/21 History gemfibrozil 600 mg PO BID 12/07/20 06/11/21 History levetiracetam 1,000 mg PO BID 12/07/20 06/11/21 History aspirin 81 mg PO QAM #30 tablet 12/09/20 06/11/21 Rx Current Medications: Active Medications Acetaminophen (Acetaminophen 325 Mg Tablet) 650 mg PO Q6H PRN PRN Reason: Mild Pain (1-3) or Fever Aspirin (Aspirin 81 Mg Enteric Tablet) 81 mg PO QAM [facility] Last Admin: 06/12/21 08:49 Dose: 81 mg Documented by: Atorvastatin Calcium (Atorvastatin 40 Mg Tablet) 40 mg PO HS [facility] Last Admin: 06/11/21 20:23 Dose: 40 mg Documented by: Clopidogrel Bisulfate (Clopidogrel Bisulfate 75 Mg Tablet) 75 mg PO DAILY [facility] Last Admin: 06/12/21 08:48 Dose: 75 mg Documented by: Enoxaparin Sodium (Enoxaparin 40 Mg/0.4 Ml Syringe) 40 mg SUB-Q DAILY [facility] Last Admin: 06/12/21 08:48 Dose: 40 mg Documented by: Gemfibrozil (Gemfibrozil 600 Mg Tablet) 600 mg PO BID [facility] Last Admin: 06/12/21 08:49 Dose: 600 mg Documented by: Sodium Chloride (Normal Saline Iv) 500 mls @ 100 mls/hr IV CONT .Q5H [facility] Levetiracetam (Levetiracetam 500 Mg Tablet) 1,000 mg PO Q12HR [facility] Last Admin: 06/12/21 08:48 Dose: 1,000 mg Documented by: Metoprolol Tartrate (Metoprolol Tartrate 50 Mg Tab) 50 mg PO Q12HR [facility] Last Admin: 06/12/21 08:49 Dose: 50 mg Documented by: Ondansetron HCl (Ondansetron Inj 4 Mg/2 Ml Vial) 4 mg IV PUSH Q6H PRN PRN Reason: Nausea And Vomiting Pantoprazole Sodium (Pantoprazole 40 Mg Tablet) 40 mg PO QAM [facility] Last Admin: 06/12/21 08:49 Dose: 40 mg Documented by: Sedation/Anesthesia: No previous sedation/anesthesia problems (including family history). 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 He had 5 children. And lives with his 2nd who is a durable power disability attorney for healthcare. 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 code status full code. Smoking packs per day: 1 Smoking cigarettes per day: 20.0 Years smoked: 8 Smoking pack-years: 8.00 Smoking status: Former smoker Tobacco type: cigars Second hand tobacco smoke exposure: Yes Alcohol intake: never Substance use: never Substance use type: does not use Spiritual care concerns: No Mod Sed Physical Exam Physical Exam Pre Procedural Exam: Normal: Appearance, Throat, Airway, Lungs, Heart Size, Heart Rate, Heart Rhythm, Neuro Exam and Extremities Hours since solid foods: 12 Hours since liquid intake: 12 Mallampati Classification: class II Internal Medicine - PN: O
--- NOTE | 2021-06-12 13:15 | PC.NURSE ---
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
--- NOTE | 2021-06-12 14:51 | WPDCARDPROC ---
Cardiac Cath Procedure Note Date of procedure:: 06/12/21 Performing physician:: Aung Rick MD Indication:: coronary disease with previous PCI, recurrent chest pain Brief clinical history:: this is an 80-year-old man who underwent interventional revascularization at another hospital about 1 year ago. He has had several admissions to this hospital with chest pain at which time his ECG and biomarkers are unremarkable. A recent nuclear stress test did not show any significant ischemia. Despite this he is once again admitted with chest pain episode and a follow-up angiogram has then been recommended. Procedure Procedure performed:: Left ventriculogram coronary angiogram attempted PTCA of proximal RCA Sedation/Medication given:: fentanyl 25 mg Versed 1 mg Case start time 1:45 p.m. case end time 2:40 p.m. Access site:: right femoral artery Estimated blood loss:: 25-30 cc Procedure note:: patient was brought to the cardiac catheterization lab in the postabsorptive state where the right femoral triangle was prepared in the normal fashion. Anesthesia was provided with 1% lidocaine infiltrated locally. Using the modified Seldinger technique the femoral artery was punctured and a 5 [place] vascular sheath was placed. After this I used a 5 [place] angled pigtail catheter to document central left-sided hemodynamics and to inject LV g in the PATTERSON projection. After this the left coronary artery was engaged and injected using a standard 5 [place] FL4 catheter. The right coronary artery was engaged using a 5 [place] JR4 catheter. Cineangiograms were then reviewed and PCI of the proximal right coronary artery was recommended and attempted as detailed below. The patient was already taking aspirin and clopidogrel chronically. He was systemically anticoagulated with bivalirudin for this intervention procedure. Following the procedure the cineangiograms were reviewed and the case was terminated. Patient was taken to the holding area where the sheath will be removed with direct manual compression. Procedure was well tolerated there were no apparent complications. Findings:: Hemodynamics: Central aortic pressure is 140 over 56 left ventricle 140/0 end-diastolic pressure 14 there is no gradient on pullback across the aortic valve. left ventricle: The left ventricle is mildly enlarged there is mild global systolic hypocontractility with an ejection fraction of visually estimated to be 40-45%. The left main coronary artery is moderately calcified medium in caliber but free of stenosis. The left anterior descending is a heavily calcified artery proximally. There is stent material from the proximal LAD down to the midportion of the vessel a bridging over the major diagonal branch. The LAD is medium in caliber. The stented segment has mild loss of lumen which is a not appear to be flow-limiting there is good flow down to the apex. The diagonal branch is a medium caliber vessel which is jailed by the previously deployed stent. There is a 80% stenosis in the mid aspect of the diagonal. The circumflex is a medium caliber vessel giving rise to 2 small marginal branches these are small in caliber but free of significant disease. The right coronary artery is dominant to the posterior wall it is heavily calcified proximally and is medium in caliber. There is visible stent material in the proximal portion of the right coronary artery extending out beyond the ostium into the aortic root for a short distance. The proximal right coronary artery about 10 mm from the ostium has 99% stenosis in the previous stent. The distal right coronary artery is small mild diffuse disease but no flow-limiting lesions are seen. Intervention: The right coronary artery was engaged using a JR4, WRP, AL1 and AL 0.75. The best engagement was with the AL 0.75. I used a 0.014 whisper wire as well as a 0.014 captain/airline pilot 200 advanced through the proximal segment of the artery
--- NOTE | 2021-06-12 18:30 | PC.NURSE ---
Patient returned from hospital laboratory technician with RN at bedside without issue.
[2021-06-12] MEDS: SODIUM CHLORIDE 0.9% IV 1,000 ML 125 ML IV CONT (18:52)
[2021-06-12] MEDS: ATORVASTATIN 40 MG TABLET PO (20:06)
[2021-06-13] VITALS (13 sets, daily range): BP systolic 116–134; BP diastolic 56–75; PULSE 52–80; RESP 15–20; TEMP 36.1–36.2; O2SAT 96–100
--- NOTE | 2021-06-13 05:11 | ECG_ITS ---
Measurements Intervals [place] Rate: 65 P: 36 UT: 174 QRS: -38 QRSD: 130 T: 26 QT: 411 QTc: 429 Interpretive Statements SINUS RHYTHM LEFT AXIS DEVIATION [QRS AXIS < -30] RIGHT BUNDLE BRANCH BLOCK [120+ ms QRS DURATION, UPRIGHT V1, 40+ ms S IN I/aVL/V4/V5/V6] COMPARED TO ECG 06/11/2021 10:20:26 NO SIGNIFICANT CHANGES Electronically Signed On 06-13-2021 13:45:55 CDT by Tricia Del Rio M.D.
[2021-06-13] MEDS: ASPIRIN 81 MG CHEWABLE TABLET PO (08:01)
[2021-06-13] MEDS: gemfibroziL 600 MG TABLET PO (08:01)
[2021-06-13] MEDS: CLOPIDOGREL BISULFATE 75 MG TABLET PO (08:01)
[2021-06-13] MEDS: ENOXAPARIN 40 MG/0.4 ML SYRINGE SUB-Q (08:01)
[2021-06-13] MEDS: PANTOPRAZOLE 40 MG TABLET PO (08:02)
[2021-06-13] MEDS: levETIRAcetam 500 MG TABLET 1000 MG PO (08:02)
[2021-06-13] MEDS: METOPROLOL TARTRATE 50 MG TAB PO (08:02)
--- NOTE | 2021-06-13 09:10 | PM.PNCARD ---
Progress Note: A&P Assessment and Plan (1) Chest pain: Code(s): R07.9 - Chest pain, unspecified Status: Acute Assessment and Plan: Two hospitalizations over the past year for chest pain that was felt to be atypical and did not result in any invasive cardiac workup. He also underwent a lexiscan stress test in November of 2020 that was negative. He presents now with chest pain that is concerning for myocardial ischemia. Once again during this hospitalization his troponin levels are negative and his EKG does not have any changes that are concerning for acute ischemia. However, he is describing exertional angina that is relieved by rest and is responsive to nitroglycerin and also associated with some shortness of breath and nausea. He underwent coronary angiogram yesterday that revealed significant 99% stenosis of the RCA in a previously deployed stent. Attempts at intervention of this lesion were not successful as there was stent material extending out beyond the ostium of the right coronary into the aortic root. Unable to engage the main channel of the stent with a wire allowing advancement of devices into the RCA itself. Therefore, patient is being referred to a tertiary center for consideration for more complex intervention of this lesion. He is stable from a cardiac perspective and appropriate for discharge today. (2) Coronary artery disease: Code(s): I25.10 - Atherosclerotic heart disease of [place] coronary artery without angina pectoris Status: Chronic Assessment and Plan: Established history of CAD with previously placed stents in 2020. On appropriate medical therapy with ASA, plavix, atorvastatin. These should be continued for now. Subjective Date/time seen: 06/13/21 09:10 Cardiology follow up for chest pain He's feeling well this morning and does not have any complaints. He states he has not had any recurrence of chest pain since he entered the hospital. Discussed plan of care with the patient, he is aware that he should be expecting a call from [facility] to schedule appointment for PCI. Review of Systems Constitutional: Constitutional: Denies fatigue, Reports headache(s) and Denies weakness Eyes: Eyes: Denies blurry vision and Denies change in vision ENT: Reports Normal hearing present, Reports headache(s) and Denies neck pain Cardiovascular: Cardiovascular: Reports chest pain, Denies diaphoresis, Denies pedal edema, Denies leg edema, Denies lightheadedness, Denies palpitations, Reports dyspnea and Reports dyspnea on exertion Respiratory: Respiratory: Reports dyspnea and Reports dyspnea on exertion Gastrointestinal: Gastrointestinal: Denies abdominal pain, Denies melena and Denies hematochezia Genitourinary: Genitourinary: Denies urinary frequency, Denies urinary hesitancy and Denies urinary urgency Musculoskeletal: Musculoskeletal: Denies back pain, Denies neck pain and Denies numbness Integumentary/Breasts: Skin/Breast: Reports dry skin and Denies wounds Neurologic: Reports Normal hearing present, Denies confusion, Reports headache(s), Denies numbness and Denies weakness Psychiatric: Psychiatric: Reports anxiety, Denies confusion and Reports depression Endocrine: Endocrine: Denies fatigue and Denies palpitations Hematologic/Lymphatic: Hematologic/Lymphatic: Denies easy bleeding and Denies easy bruising Allergic/Immunologic: Allergic/Immunologic: Denies GI upset with certain foods Exam Const: General: comfortable and no acute distress; No confusion Orientation/consciousness: No confusion HENMT: Head: normal to inspection, normocephalic and atraumatic Ears: hearing grossly normal bilaterally General nose exam: Normal external nose present Face and sinus: normal facial exam Mouth: Yes Normal oral and palatal mucosa present and Yes moist mucous membranes Eyes: General: appearance normal, both eyes and all related structures Pupils: Equal, round and reactive pupils present
--- NOTE | 2021-06-13 11:58 | PM.IMPN ---
Progress Note: A&P Additional Plan (1) Chest pain: Code(s): R07.9 - Chest pain, unspecified Status: Acute Assessment and Plan: Patient's chest discomfort does sound cardiac in etiology. Previous stress test in November 2020 was negative. He has negative cardiac biomarkers. Cardiac catheterization was done on 06/12/21 by the spring coiler, it revealed high grade 99% stenosis of the RCA with mild global left ventricular systolic dysfunction. Intervention was unsuccessful, the spring coiler has referred his to a tertiary institution i.e. [facility] for intervention, the patient was told to expect a call that will schedule the PCI. OK to discharge home per spring coiler, follow up with spring coiler. Patient endorsed improvement of his chest pain and is OK with discharge home. (2) Hypertension: Code(s): I10 - Essential (primary) hypertension Status: Chronic Assessment and Plan: Resumed patient's home medications (3) Hyperlipidemia: Code(s): E78.5 - Hyperlipidemia, unspecified Status: Chronic Assessment and Plan: Will resume patient's home lipid medications. (4) Coronary artery disease: Code(s): I25.10 - Atherosclerotic heart disease of [place] coronary artery without angina pectoris Status: Chronic Assessment and Plan: Continue dual antiplatelet therapy statin and beta-ori as ordered Subjective Date/time seen: 06/13/21 11:58 Patient seen sitting up in bed eating lunch, in good spirits, he endorsed feeling better, now new complains. His and sister were both at bedside, all questions were answered. Review of Systems Review of Systems: All systems reviewed & are unremarkable except as noted in HPI and below Constitutional: Constitutional: Denies body ache(s), Denies chills, Reports frequent falls, Denies headache(s) and Denies poor appetite Eyes: Eyes: Reports no additional eye complaints Cardiovascular: Cardiovascular: Reports no additional cardiovascular complaints Respiratory: Respiratory: Reports no additional respiratory complaints Gastrointestinal: Gastrointestinal: Reports no additional gastrointestinal complaints Genitourinary: Genitourinary: Reports as per HPI Musculoskeletal: Musculoskeletal: Reports no additional musculoskeletal complaints Integumentary/Breasts: Skin/Breast: Reports system reviewed and no additional complaints, except as docu Neurologic: Reports system reviewed and no additional complaints, except as documented Psychiatric: Psychiatric: Reports no additional psychiatric complaints Exam Const: General: healthy appearing, comfortable and no acute distress Resp: Effort & Inspection: normal respiratory effort and able to speak in complete sentences Auscultation: clear to auscultation bilaterally Cardio: Rate: regular rate Rhythm: regular rhythm Heart sounds: S1 normal heart sound present and S2 normal heart sound present GI: Inspection: normal to inspection GI Palp: No abdominal tenderness and Yes Soft to palpation Auscultation: normal bowel sounds Skin: General skin exam: normal color and no rashes or lesions noted Objective Data Vital Signs Vital Signs: Vital Signs - 24 hr 06/12/21 12:00 06/12/21 12:03 06/12/21 15:00 Temperature 97.5 F L 97.1 F L Pulse Rate 61 55 L 55 L Pulse Rate [Right Pedal (Dorsalis Pedis) Palpation] Respiratory Rate 20 16 Blood Pressure 136/67 143/74 H Pulse Oximetry 100 99 06/12/21 15:15 06/12/21 15:30 06/12/21 15:45 Temperature Pulse Rate 58 L 54 L 57 L Pulse Rate [Right Pedal (Dorsalis Pedis) Palpation] Respiratory Rate 16 16 16 Blood Pressure 141/53 H 150/63 H 154/63 H Pulse Oximetry 100 99 100 06/12/21 16:15 06/12/21 16:30 06/12/21 16:41 Temperature Pulse Rate 56 L 59 L 56 L Pulse Rate [Right Pedal (Dorsalis Pedis) Palpation] Respiratory Rate 18 16 15 Blood Pressure 148/56 H 143/63 H 143/63 H Pulse Oximetry 99 100 99 06/12/21 16:51 06/12/21 16:
--- NOTE | 2021-06-13 14:31 | PM.DS ---
DS: Admitting Diagnosis Discharge Date 06/13/2021 Admitting Diagnosis #Chest pain #Hypertension #Hyperlipidemia #Coronary artery disease DS: Discharge Diagnosis Discharge Diagnosis (1) Chest pain due to CAD: Code(s): I25.119 - Atherosclerotic heart disease of [place] coronary artery with unspecified angina pectoris Status: Acute (2) Diabetes mellitus: Code(s): E11.9 - Type 2 diabetes mellitus without complications Status: Acute (3) Hypertension: Code(s): I10 - Essential (primary) hypertension Status: Chronic DS: Summary Hospital Course Hospital Course: 80-year-old gentleman who presented emergency room with complaints of chest discomfort that has been going on off and on for 3 days. Patient states he has a known history of coronary artery disease status post stent placement was performed [facility]. 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 Patient states he has had a stent to his abdomen. Patient states over the previous 3 days prior to admission he had midsternal chest discomfort that radiated up to his jaw and down both arms. Patient stated he had associated shortness of breath. Patient states that he did take a nitroglycerin one day prior to admission and it did help his chest discomfort. Hence he was admitted, his work up and investigation were as follows. Previous stress test in November 2020 was negative. He has negative cardiac biomarkers. Cardiac catheterization was done on 06/12/21 by the odd shoe examiner, it revealed high grade 99% stenosis of the RCA with mild global left ventricular systolic dysfunction. Intervention was unsuccessful, the odd shoe examiner has referred the patient to a tertiary institution i.e. [facility] for intervention, the patient was told to expect a call that will schedule the PCI. OK to discharge home per odd shoe examiner, follow up with odd shoe examiner. Patient endorsed improvement of his chest pain and is OK with discharge home. NTG SL PRN provided, continue all home cardiac medications. Time Spent with Patient Time attestation: Total time spent providing and/or coordinating discharge services: 40 minutes Time spent: Greater than 30 minutes Exam Const: General: cooperative, comfortable and no acute distress Resp: Effort & Inspection: normal respiratory effort and able to speak in complete sentences Auscultation: clear to auscultation bilaterally Cardio: Jugular venous distension: no JVD Rate: regular rate Rhythm: regular rhythm Heart sounds: S1 normal heart sound present and S2 normal heart sound present GI: Inspection: normal to inspection GI Palp: No abdominal tenderness and Yes Soft to palpation Auscultation: normal bowel sounds Skin: General skin exam: normal color Neuro: General: oriented to person, oriented to place, oriented to time and patient oriented x3 Extrem: General: normal to inspection and full ROM Discharge Plan Discharge Attending physician on discharge: Earlene Dunn Consulting providers: Aung Rick Discharging Clinician: Earlene Dunn Patient Disposition: Home, Self-Care Activity: june shower Diet: heart healthy and diabetic Discharge Instructions: [facility] [address] [place] [address] DISCHARGE INSTRUCTIONS - POST CARDIAC C
== END 2021-06-13 15:40 | disposition home or self-care (01) | DRG 287 ==
LOC: ANHED 14:41 → ANHIMU 17:00
PROVIDERS: Emergency Medicine; Nurse Practitioner Adult Health; Specialist; Admitting Provider Internal Medicine; Emergency Provider Emergency Medicine; PCP Family Medicine; Visit Provider Internal Medicine
PROC: 4A023N7 Measurement of Cardiac Sampling and Pressure, Left Heart, Percutaneous Approach (ICD-10-PCS; CPT 93452; principal; 2021-06-12 13:10)
PROC: 02703ZZ Dilation of Coronary Artery, One Artery, Percutaneous Approach (ICD-10-PCS; CPT 92920; 2021-06-12 13:10)
DX: T82.855A Stenosis of coronary artery stent, initial encounter (principal); I25.10 Atherosclerotic heart disease of native coronary artery without angina pectoris; E11.9 Type 2 diabetes mellitus without complications; I10 Essential (primary) hypertension; K21.9 Gastro-esophageal reflux disease without esophagitis; H40.9 Unspecified glaucoma; E78.5 Hyperlipidemia, unspecified; I45.10 Unspecified right bundle-branch block; Z96.653 Presence of artificial knee joint, bilateral; Z53.8 Procedure and treatment not carried out for other reasons; Z95.5 Presence of coronary angioplasty implant and graft; Z86.73 Personal history of transient ischemic attack (TIA), and cerebral infarction without residual deficits; Z98.49 Cataract extraction status, unspecified eye; Z90.49 Acquired absence of other specified parts of digestive tract; Z87.891 Personal history of nicotine dependence
CPT/HCPCS: 36415; 71046; 80048; 80053; 83690; 83735; 84484; 85025; 85610; 85730; 92920; 93005; 93458; 96372; 99285; A9270; C1725; C1768; C1769; C1887; C1894; G0378; J0583; J1644; J1650; J2250; J3010; J7030; J7040

== ENCOUNTER 2021-06-28 16:42 | Emergency (ER) | payer MEDICARE, SELFPAY ==
--- NOTE | ~2021-06-28 | XR_ITS ---
XR chest 2V DATE: 06/28/2021 17:12 INDICATION: Generalized chest pain for 2 days, consisting of constant dull pain and occasional sharp pain. TECHNIQUE: PA and lateral views COMPARISON: 06/11/2021 PA and lateral chest FINDINGS: Normal heart size. Aortic calcification and mild tortuosity. Coronary artery calcification. No hilar or mediastinal enlargement. No pulmonary infiltrate or consolidation, pleural effusion or pulmonary vascular congestion or pneumo thorax. Surgical clips, right upper quadrant, likely due to cholecystectomy. Osteopenia. Degenerative spurring and mild scoliosis of the thoracic spine. IMPRESSION: No active cardiopulmonary disease Aortic and coronary atherosclerosis Status post cholecystectomy Osteopenia Scoliosis and degenerative spurring of the thoracic spine Reviewed, dictated and finalized at location B.
--- NOTE | 2021-06-28 16:43 | ECG_ITS ---
Measurements Intervals [place] Rate: 86 P: 100 ND: 212 QRS: -46 QRSD: 126 T: 17 QT: 363 QTc: 435 Interpretive Statements SINUS RHYTHM WITH FIRST DEGREE AV BLOCK RIGHT BUNDLE BRANCH BLOCK LEFT ANTERIOR FASCICULAR BLOCK BASELINE ARTIFACT- I, II, AVR, AVL, AVF, V5 ABNORMAL ECG Electronically Signed On 06-28-2021 20:26:42 CDT by Kei Gonzalez D.O.
[2021-06-28 16:44] VITALS: BP 142/87; PULSE 93; RESP 18; TEMP 36.5; O2SAT 97
[2021-06-28 17:11] LABS: Basophils Absolute Auto 0.1 K/mm3 (0.0-0.1); Eosinophils Absolute Auto 0.2 K/mm3 (0-0.3); Hematocrit 38.5 % (42.0-52.0); Hemoglobin 12.6 g/dL (14.0-18.0); Immature Granulocyte Absolute 0.03 K/mm3 (0.00-0.031); Immature Granulocyte Percent A 0.5 % (0-0.5); Lymphocytes Absolute Auto 1.25 K/mm3 (0.9-3.2); Lymphocytes Percent Auto 20.8 % (18.3-44.2); Mean Corpuscular HGB Conc 32.7 g/dl (32-36); Mean Corpuscular Hemoglobin 31.1 pg (26-34); Mean Corpuscular Volume 95.1 fl (80-100); Mean Platelet Volume 8.8 fl (7.4-10.4); Monocytes Absolute Auto 0.6 K/mm3 (0.1-0.6); Neutrophils Absolute Auto 3.9 K/mm3 (1.3-6.7); Neutrophils Percent Auto 64.7 % (45.5-73.1); Platelet Count Result 285 k/mm3 (150-375); Red Blood Count 4.05 M/mm3 (4.6-6.20); Red Cell Distribution Width 12.7 % (11.5-14.5)
[2021-06-28 17:22] LABS: Alanine Aminotransferase 13 U/L (6-50); Albumin Level 4.2 g/dL (3.5-5.1); Alkaline Phosphatase 83 U/L (38-126); Anion Gap 9 mmol/L (8-16); Aspartate Amino Transferase 27 U/L (17-59); Bilirubin,Total 0.4 mg/dL (0.2-1.3); Blood Urea Nitrogen 9 mg/dL (9-20); Carbon Dioxide 24 mmol/L (22-30); Chloride 101 mmol/L (98-107); Estimated CRCL calculation 59 ml/min; Estimated Glomerular Filt Rate > 60; Glucose 128 mg/dL (65-110); Lipase 193 U/L (23-300); Potassium 4.2 mmol/L (3.4-5.0); Sodium 134 mmol/L (137-145)
[2021-06-28 17:24] LABS: Prothrombin Time 12.6 Seconds (11.1-14.7)
[2021-06-28 17:25] LABS: Partial Thromboplastin Time 27.2 SECONDS (22.3-36.8)
[2021-06-28 17:32] LABS: Troponin I < 0.012 ng/mL (0.000-0.034)
[2021-06-28 18:21] VITALS: BP 136/82; PULSE 80; RESP 17; O2SAT 97
[2021-06-28 18:45] VITALS: BP 151/84; PULSE 84; RESP 20; O2SAT 96
--- NOTE | 2021-06-28 18:45 | ED.CHESTPAIN ---
HPI - Chest Pain General Chief Complaint: Chest Pain Stated Complaint: CP Time Seen by Provider: 06/28/21 18:45 Source: patient Mode of arrival: ambulatory Limitations: no limitations History of Present Illness HPI narrative: The patient is an 80-year-old male with a history of hypertension, coronary artery disease, presenting to the emergency department for evaluation of chest pain. Patient reports intermittent chest pain over the past 3 days that has resolved with nitroglycerin. Patient states he has followed with Dr. Rick in the past, has recent history of occluded coronary stent, had been referred to [facility] for further management. Pt reports current chest pain which is aching, mild in nature overlying the front chest. Pt denies radiation of the pain to the neck, jaw or back. He denies ripping or tearing sensation to the flank. He denies lightheadedness or dizziness. He denies leg swelling or calf pain. Patient denies subsequent diaphoresis. He does not notice worsening of the pain with exertion. He reports mild shortness of breath with exertion, but no current shortness of breath. He denies cough or hemoptysis. Patient is on any anticoagulation currently. Related Data Home Medications Medication Instructions Recorded Confirmed clopidogrel [Plavix] 75 mg PO DAILY 09/03/20 06/11/21 atorvastatin 40 mg PO HS 12/07/20 06/11/21 gemfibrozil 600 mg PO BID 12/07/20 06/11/21 levetiracetam 1,000 mg PO BID 12/07/20 06/11/21 Allergies Allergy/AdvReac Type Severity Reaction Status Date / Time No Known Allergies Allergy Verified 06/28/21 18:22 Review of Systems Review of Systems: CONSTITUTIONAL: Denies fever, chills, or sweats. EYES: Denies visual changes, redness, or discharge. ENT: Denies rhinorrhea, congestion, sore throat, or otalgia. CARDIOVASCULAR: Reports chest pain without palpitations or edema RESPIRATORY: Denies cough or current dyspnea. GASTROINTESTINAL: Denies abdominal pain, nausea, vomiting, or diarrhea. GENITOURINARY: Denies dysuria or hematuria. SKIN: Denies rash or itching. MUSCULOSKELETAL: Denies back pain, joint pain, or myalgia. NEUROLOGIC: Denies headache, numbness, or weakness. [facility] Past Medical History Medical History Chronic GERD Coronary artery disease Gastritis Glaucoma 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 He had 5 children. And lives with his 2nd who is a durable power creative lead for healthcare. 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 code status full code. Smoking packs per day: 1 Smoking cigarettes per day: 20.0 Years smoked: 8 Smoking pack-years: 8.00 Smoking status: Former smoker Tobacco type: cigars Second hand tobacco smoke exposure: Yes Alcohol intake: never Substance use: never Substance use type: does not use Spiritual care concerns: No Exam Narrative: GENERAL: Awake, alert, conversant HEAD: Normocephalic, atraumatic. EYES: PERRLA and EOMI. ENT: Nares clear, no rhinorrhea or epistaxis. Mucous membranes moist. NECK: Supple. CHEST: No respiratory distress, breathing even and non labored, no chest wall tenderness HEART: Regular rate, sinus rhythm ABDOMEN:Non distended, non tender EXTREMITIES:
[2021-06-28 19:33] LABS: Troponin I < 0.012 ng/mL (0.000-0.034)
[2021-06-28 19:46] VITALS: BP 136/80; PULSE 77; RESP 22; O2SAT 98
[2021-06-28] MEDS: ASPIRIN 81 MG CHEWABLE TABLET 324 MG PO (19:46)
[2021-06-28] MEDS: NITROGLYCERIN SL 0.4 MG TABLET SUBLINGUAL (19:46)
[2021-06-28 19:51] VITALS: BP 119/80; PULSE 85; RESP 17; O2SAT 95
[2021-06-28 20:00] LABS: NT Pro B Type Natriuretic Pept 207 pg/mL (5-100)
[2021-06-28 20:57] LABS: SARS-CoV-2 RNA PCR Negative
== END 2021-06-28 20:36 | disposition home or self-care (01) ==
PROVIDERS: Emergency Provider Emergency Medicine; PCP Family Medicine
DX: R07.89 Other chest pain (principal); R06.02 Shortness of breath; I25.10 Atherosclerotic heart disease of native coronary artery without angina pectoris; E78.5 Hyperlipidemia, unspecified; I10 Essential (primary) hypertension; Z20.822 Contact with and (suspected) exposure to COVID-19; Z86.73 Personal history of transient ischemic attack (TIA), and cerebral infarction without residual deficits; Z79.02 Long term (current) use of antithrombotics/antiplatelets; Z87.891 Personal history of nicotine dependence
CPT/HCPCS: 36415; 71046; 80053; 83690; 83880; 84484; 85025; 85380; 85610; 85730; 93005; 99284; A9270; C9803; U0003; U0005

== ENCOUNTER 2021-06-29 04:53 | Observation (INO) | payer MEDICARE, SELFPAY ==
[2021-06-29] VITALS (17 sets, daily range): BP systolic 114–145; BP diastolic 65–87; PULSE 83–111; RESP 14–20; TEMP 36.4–37.7; O2SAT 95–100; BMI 24.4
--- NOTE | ~2021-06-29 | CT_ITS ---
EXAMINATION: CT cervical spine wo con DATE: 06/29/2021 05:47 INDICATION: Fall. Head trauma. Neck pain. TECHNIQUE: Computed tomography (CT) of the cervical spine was performed without intravenous contrast. Automated exposure control and iterative reconstruction technique were employed. Exam dose: 366.85 mGy-cm total exam DLP. COMPARISON: None FINDINGS: C1 and C2 are normally aligned and the odontoid process is intact. No fracture or dislocati on, locked facet or prevertebral soft tissue swelling. There is fusion at the apophyseal joints at C2-3 bilaterally. There are degenerative changes at the r emaining apophyseal joints. There is uncovertebral joint spurring throughout the cervical spine as we ll. Moderately prominent degenerative disc disease is noted, most pronounced at C6-7. There is thyromegaly and thyroid calcifications. 3.8 x 2.4 x 3.9 cm left superior mediastinal thyroid calcified nodule Mild thoracic aortic aneurysm. IMPRESSION: Cervical spondylosis; no fracture, dislocation or locked facet Thyromegaly and thyroid calcifications Reviewed, dictated and finalized at [facility]. Reviewed, dictated and finalized at [facility].
--- NOTE | ~2021-06-29 | XR_ITS ---
EXAMINATION: XR hand RT min 3V INDICATION: Right hand pain TECHNIQUE: Three views of the right hand are obtained. COMPARISON: None available FINDINGS: Bone alignment is normal. There is no fracture. 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 The soft tissues are unremarkable. IMPRESSION: 1. No acute osseous abnormality. Reviewed, dictated and finalized at [facility].
--- NOTE | ~2021-06-29 | XR_ITS ---
EXAMINATION: XR shoulder RT min 2V INDICATION: Right shoulder pain TECHNIQUE: Three views of the right shoulder are submitted. COMPARISON: None FINDINGS: Normal alignment. No fracture. Glenohumeral and acromioclavicular joint spaces are normal. Soft tissues are unremarkable. IMPRESSION: 1. No acute osseous abnormality. Reviewed, dictated and finalized at location [facility].
--- NOTE | ~2021-06-29 | CT_ITS ---
EXAMINATION: CT brain wo con INDICATION: Head injury COMPARISON: None TECHNIQUE: Standard unenhanced head CT. The dose-length product (DLP) was 605.33 mGy-cm. The mA was a djusted according to patient size. Iterative reconstruction technique was employed. FINDINGS: There is no acute intraparenchymal hemorrhage. No evidence of mass lesion. No evidence of a cute infarction. There is encephalomalacia in the right parietal lobe, consistent with prior infarct. There is mild periventricular and subcortical hypodensity probably related to small vessel ischemic disease. There is mild prominence of the sulci and ventricles related to cerebral atrophy. Intracrani al calcified cerebral atherosclerosis is noted. There are no extra-axial collections. There is no mas s effect or midline shift. The orbits and soft tissues are unremarkable. The visualized sinuses and m astoid air cells are well aerated. IMPRESSION: 1. Areas of prior infarction without acute intracranial abnormality. 2. Age related findings. Reviewed, dictated and finalized at location [facility].
--- NOTE | 2021-06-29 05:04 | ECG_ITS ---
Measurements Intervals [place] Rate: 105 P: 97 NV: 203 QRS: -71 QRSD: 122 T: 18 QT: 334 QTc: 442 Interpretive Statements SINUS TACHYCARDIA BORDERLINE AV CONDUCTION DELAY RIGHT BUNDLE BRANCH BLOCK LEFT ANTERIOR FASCICULAR BLOCK ABNORMAL ECG Electronically Signed On 06-29-2021 6:34:59 CDT by Kei Gonzalez D.O.
[2021-06-29 05:18] LABS: Basophils Absolute Auto 0.1 K/mm3 (0.0-0.1); Basophils Percent Auto 0.7 % (0.2-1.2); Eosinophils Absolute Auto 0.2 K/mm3 (0-0.3); Eosinophils Percent Auto 2.3 % (0-4.4); Hematocrit 40.8 % (42.0-52.0); Hemoglobin 13.3 g/dL (14.0-18.0); Immature Granulocyte Absolute 0.04 K/mm3 (0.00-0.031); Immature Granulocyte Percent A 0.5 % (0-0.5); Lymphocytes Percent Auto 12.6 % (18.3-44.2); Mean Corpuscular HGB Conc 32.6 g/dl (32-36); Mean Corpuscular Hemoglobin 31.1 pg (26-34); Mean Corpuscular Volume 95.3 fl (80-100); Mean Platelet Volume 8.8 fl (7.4-10.4); Monocytes Absolute Auto 0.7 K/mm3 (0.1-0.6); Monocytes Percent Auto 8.3 % (2.6-8.5); Neutrophils Absolute Auto 6.6 K/mm3 (1.3-6.7); Neutrophils Percent Auto 75.6 % (45.5-73.1); Platelet Count Result 293 k/mm3 (150-375); Red Blood Count 4.28 M/mm3 (4.6-6.20); Red Cell Distribution Width 12.8 % (11.5-14.5); White Blood Count 8.7 K/mm3 (4.5-10.0)
[2021-06-29 05:26] LABS: Alanine Aminotransferase 13 U/L (6-50); Albumin Level 4.4 g/dL (3.5-5.1); Alkaline Phosphatase 97 U/L (38-126); Anion Gap 8 mmol/L (8-16); Aspartate Amino Transferase 31 U/L (17-59); Bilirubin,Total 0.5 mg/dL (0.2-1.3); Blood Urea Nitrogen 8 mg/dL (9-20); Calcium 9.4 mg/dL (8.4-10.2); Carbon Dioxide 26 mmol/L (22-30); Chloride 102 mmol/L (98-107); Estimated CRCL calculation 53 ml/min; Estimated Glomerular Filt Rate > 60; Glucose 111 mg/dL (65-110); Potassium 4.1 mmol/L (3.4-5.0); Sodium 136 mmol/L (137-145)
--- NOTE | 2021-06-29 05:45 | ED.HEATRA ---
HPI - Head Injury General Chief complaint: Head Injury Stated complaint: GLF 1 HOUR DEMONSTR[employer] Time Seen by Provider: 06/29/21 05:07 History of Present Illness HPI Narrative: 80-year-old male with history of CAD recently seen here for chest pain presents after falling and hitting his head, patient unclear what exactly happened, he states that he was walking to the bathroom when next thing he knew he was on the ground, he does not think he had loss of consciousness. Denies any chest pain or difficulty breathing, is endorsing some headache and right shoulder pain at this time, he did have a cut to his forehead that was bleeding actively, and he is on a blood thinner. Denies any nausea or vomiting. Onset (ago): minute(s) (Prior to arrival) Arrival Conditions: C-spine immobilization present Mechanism of Injury: fall Place: home Loss of Consciousness: yes and no Location of injury: frontal Radiation: none Other Injuries: laceration and upper extremity Context: on aspirin and other anticoagulant use (Plavix) Associated symptoms: denies other symptoms Related Data Home Medications Medication Instructions Recorded Confirmed clopidogrel [Plavix] 75 mg PO DAILY 09/03/20 06/11/21 atorvastatin 40 mg PO HS 12/07/20 06/11/21 gemfibrozil 600 mg PO BID 12/07/20 06/11/21 levetiracetam 1,000 mg PO BID 12/07/20 06/11/21 Allergies Allergy/AdvReac Type Severity Reaction Status Date / Time No Known Allergies Allergy Verified 06/28/21 18:22 Review of Systems Review of Systems: All systems reviewed & are unremarkable except as noted in HPI and below PMFSH Past Medical History Medical History Chronic GERD Coronary artery disease Gastritis Glaucoma 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 He had 5 children. And lives with his 2nd who is a durable power commercial attorney for healthcare. 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 code status full code. Smoking packs per day: 1 Smoking cigarettes per day: 20.0 Years smoked: 8 Smoking pack-years: 8.00 Smoking status: Former smoker Tobacco type: cigars Second hand tobacco smoke exposure: Yes Alcohol intake: never Substance use: never Substance use type: does not use Spiritual care concerns: No Exam Narrative: EXAMINATION OF ORGAN SYSTEMS/BODY AREAS: Constitutional: Vital signs per nursing GENERAL: No acute distress, non-toxic appearing. HEAD: Some abrasions to head and actively oozing 4cm laceration above R eyebrow EYES: EOMI, conjunctiva normal ENT: Hearing grossly intact LUNGS: Nonlabored breathing. HEART: [Regular rate and rhythm] ABD: [Soft], [nontender to palpation] EXT: Normal range of motion but bruising to R shoulder, R hand SKIN: Bruising per above, lac and abrasions per above NEURO: [Alert and oriented x 3. No gross focal sensory or strength deficits.] PSYCH: Normal affect Course Course Emergency Course: 80-year-old male with history of CAD presenting with ground-level fall, he is unclear how that happened, possibly stable, exam shows lac to R forehead actively bleeding and abrasion to head, bruising R shoulder/hand, otherwise normal neuro and cardiopulm exam. DDx includes mechanical fall vs possible syncope, and intracranial bleeding / fractur
[2021-06-29] MEDS: TETANUS,DIPHTHERIA,AC PERTUSSIS ADULT (0.5 ML) BOOSTRIX IM (06:08)
--- NOTE | 2021-06-29 09:27 | PC.NURSE ---
ordered pt heart healthy breakfast tray.
[2021-06-29 12:40] LABS: Glucose Point of Care 163 mg/dl (65-105)
--- NOTE | 2021-06-29 14:58 | PM.IMHP ---
H&P: HPI History of Present Illness Date/Time: 06/29/21 14:58 ED-HPI Narrative: 80-year-old male with history of CAD recently seen here for chest pain presents after falling and hitting his head, patient unclear what exactly happened, he states that he was walking to the bathroom when next thing he knew he was on the ground, he does not think he had loss of consciousness. Denies any chest pain or difficulty breathing, is endorsing some headache and right shoulder pain at this time, he did have a cut to his forehead that was bleeding actively, and he is on a blood thinner. Denies any nausea or vomiting. patient 80-year-old male with history of severe coronary artery disease status post fall and laceration right forehead, patient did not any prodrome symptoms prior to fall, he denies any chest pain shortness of breath palpitation or dizziness, unable to provide what is exactly, his is present room, patient did not lose consciousness, after fall patient struck his head on heating baseboard, suspect most likely mechanical fall however patient has a severe coronary artery disease and has unamendable coronary vessel and was referred to tertiary care by his Cardiology, will consult his driver salesman for further evaluation and recommendation, will continue to monitor will have a PT OT evaluate the patient, will benefit going acute rehab for strengthening exercise. patient admitted as observation status. 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 He had 5 children. And lives with his 2nd who is a durable power deputy prosecuting attorney for healthcare. 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 code status full code. Smoking packs per day: 1 Smoking cigarettes per day: 20.0 Years smoked: 8 Smoking pack-years: 8.00 Smoking status: Current every day smoker Tobacco type: smokeless tobacco Smokeless tobacco user: chewing tobacco Second hand tobacco smoke exposure: Yes Alcohol intake: former Substance use: never Substance use type: does not use Spiritual care concerns: No Meds Home Medications and Allergies Home Medications Medication Instructions Recorded Confirmed Type clopidogrel [Plavix] 75 mg PO DAILY 09/03/20 06/29/21 History metoprolol tartrate 50 mg PO Q12HR 30 Days #60 tablet 09/05/20 06/29/21 Rx pantoprazole 40 mg PO QAM 30 Days #30 tablet 09/05/20 06/29/21 Rx atorvastatin 40 mg PO HS 12/07/20 06/29/21 History gemfibrozil 600 mg PO BID 12/07/20 06/29/21 History levetiracetam 1,000 mg PO BID 12/07/20 06/29/21 History aspirin 81 mg PO QAM #30 tablet 12/09/20 06/29/21 Rx nitroglycerin [Nitrostat] 0.4 mg SUBLINGUAL Q5MIN PRN #60 06/13/21 06/29/21 Rx tablet isosorbide mononitrate 30 mg PO DAILY 30 Days #30 tablet 06/28/21 06/29/21 Rx Prevagen 40 mg PO DAILY 06/29/21 06/29/21 History ascorbic acid (vitamin C) 250 mg PO DAILY 06/29/21 06/29/21 History eierqyzmopmf-[id number]-[id number] 1 tablet PO DAILY 06/29/21 06/29/21 History [Centrum Silver]
--- NOTE | 2021-06-29 15:11 | PC.NURSE ---
while doing pt's initial/intake assessment, he and his informed me that he takes nitroglycerin every day and many days multiple times a day.
--- NOTE | 2021-06-29 16:04 | PM.CNCAR ---
Assessment and Plan Assessment and plan (1) Syncope and collapse: Code(s): R55 - Syncope and collapse Status: Acute Assessment and Plan: Unexplained most likely vasovagal etiology, however, no reported prodrome symptoms a promptly regained consciousness without noted associated symptoms. Cannot exclude tachy arrhythmia such as ventricular tachycardia given LV dysfunction and CAD, however, octavio arrhythmia also a possibility. He is not relating symptoms suggestive seizure or acute CVA. Electrolytes stable. He does not appear to be intravascular volume depleted. Check urinalysis. -Check orthostatic vital signs. -telemetry Continue home cardiovascular medical therapy with adjustments based on symptoms and or orthostatic vital signs. -2D echocardiogram to assess LV size/function, valve pathology pulmonary pressures. -DVT prophylaxis (2) Ischemic cardiomyopathy: Code(s): I25.5 - Ischemic cardiomyopathy Status: Acute Assessment and Plan: Well compensated, EF 40-45% by left ventriculography 06/12/2021 left heart catheterization. Repeat 2D echocardiogram. Continue medical therapy at this time. (3) CAD (coronary artery disease): Code(s): I25.10 - Atherosclerotic heart disease of [place] coronary artery without angina pectoris Status: Acute Assessment and Plan: Continue dual antiplatelet therapy provided no complications with bleeding at superficial laceration from fall. (4) Hypertension: Code(s): I10 - Essential (primary) hypertension Status: Chronic Assessment and Plan: Stable thus far. Avoid significant hypotension. Orthostatic vital signs. (5) Diabetes mellitus: Code(s): E11.9 - Type 2 diabetes mellitus without complications Status: Acute Assessment and Plan: Per primary service. Blood sugar stable no documented evidence of hypoglycemia. (6) Closed head injury: Qualifiers: Encounter type: initial encounter Qualified Code(s): S09.90XA - Unspecified injury of head, initial encounter Code(s): S09.90XA - Unspecified injury of head, initial encounter Status: Acute Assessment and Plan: Management Per primary service status post suture. History of Present Illness History of Present Illness Consult date/time: Date of service: 06/29/21 16:04 Cardiology consultation at the request of Dr. Cabrera for opinion regarding CAD and possible syncope Requesting physician: Victoriano Cabrera MD Consult reason: Other (CAD, possible syncope) Reason For Visit: Syncope?, Falls Narrative: Patient is a very pleasant 80-year-old male with past medical history significant for CAD with recent left heart catheterization with high-grade 99% InStent restenosis with failed PCI attempt at this institution referred as an outpatient [facility] scheduled later this month, type 2 diabetes mellitus, hypertension, hyperlipidemia, stable angina, and ischemic cardiomyopathy EF 40-45% by left ventriculography 06/12/2021. Patient had presented to the ER 06/28/2021 with complaints of chest pain which resolved spontaneously ruled out for myocardial infarction and discharged home. Patient states he felt well without recurrent symptoms subsequent. Patient states he woke up proximally 3:00 a.m. this morning to use the restroom and next thing he recalls is waking up on the floor. He apparently hit his head with profuse bleeding from a laceration to his scalp above his right eye. He denies in dizzy, lightheaded, palpitation, chest pain or shortness of breath. His promptly went to him and found him on the floor and had noted him to have already regained consciousness and was talking. He has never had a similar event in the past. Thus far, he has been hemodynamically stable without ventricular arrhythmias or bradycardia on telemetry. Serial troponins negative thus far. BNP is only 207. Sodium 136 potassium 4.1. Patient states he has been compli
[2021-06-29 17:11] LABS: Glucose Point of Care 133 mg/dl (65-105)
[2021-06-29] MEDS: levETIRAcetam 500 MG TABLET 1000 MG PO (17:34)
[2021-06-29] MEDS: gemfibroziL 600 MG TABLET PO (17:35)
[2021-06-29] MEDS: ATORVASTATIN 40 MG TABLET PO (22:47)
[2021-06-29] MEDS: METOPROLOL TARTRATE 50 MG TAB PO (22:47)
[2021-06-30] VITALS (11 sets, daily range): BP systolic 90–116; BP diastolic 54–61; PULSE 58–88; RESP 16–20; TEMP 36.9–37.5; O2SAT 90–98
[2021-06-30 07:58] LABS: Glucose Point of Care 105 mg/dl (65-105)
--- NOTE | 2021-06-30 09:05 | PM.PNCARD ---
Progress Note: A&P Assessment and Plan (1) Syncope and collapse: Code(s): R55 - Syncope and collapse Status: Acute Assessment and Plan: Unexplained most likely vasovagal etiology, however, no reported prodrome symptoms a promptly regained consciousness without noted associated symptoms. Cannot exclude tachy arrhythmia such as ventricular tachycardia given LV dysfunction and CAD, however, octavio arrhythmia also a possibility. He is not relating symptoms suggestive seizure or acute CVA. Electrolytes stable. He does not appear to be intravascular volume depleted. Check urinalysis. Telemetry is unremarkable. Orthostatics were also unremarkable. Most likely etiology though is still vasovagal or an orthostatic event. Cannot exclude arrhythmia but nothing found at this point. Echocardiogram is pending. Outpatient monitor will be needed if no clear etiology is found (2) Ischemic cardiomyopathy: Code(s): I25.5 - Ischemic cardiomyopathy Status: Acute Assessment and Plan: Well compensated, EF 40-45% by left ventriculography 06/12/2021 left heart catheterization.. Continue medical therapy at this time. (3) CAD (coronary artery disease): Code(s): I25.10 - Atherosclerotic heart disease of [place] coronary artery without angina pectoris Status: Acute Assessment and Plan: Continue dual antiplatelet therapy provided no complications with bleeding at superficial laceration from fall. (4) Hypertension: Code(s): I10 - Essential (primary) hypertension Status: Chronic Assessment and Plan: Stable thus far. Avoid significant hypotension. Orthostatic vital signs. (5) Diabetes mellitus: Code(s): E11.9 - Type 2 diabetes mellitus without complications Status: Acute Assessment and Plan: Per primary service. Blood sugar stable no documented evidence of hypoglycemia. (6) Closed head injury: Qualifiers: Encounter type: initial encounter Qualified Code(s): S09.90XA - Unspecified injury of head, initial encounter Code(s): S09.90XA - Unspecified injury of head, initial encounter Status: Acute Assessment and Plan: Management Per primary service status post suture. Subjective Date/time seen: 06/30/21 09:05 Interval history: 80-year-old admitted for syncope. Date of service 06/30/2021: Feels okay. No chest pain, shortness of breath. Review of Systems Review of Systems: All systems reviewed & are unremarkable except as noted in HPI and below Constitutional: Constitutional: Reports as per HPI and Reports no additional constitutional complaints Eyes: Eyes: Reports as per HPI and Reports no additional eye complaints ENT: Reports system reviewed and no additional complaints, except as documented and Reports as per HPI Cardiovascular: Cardiovascular: Reports as per HPI and Reports no additional cardiovascular complaints Respiratory: Respiratory: Reports as per HPI and Reports no additional respiratory complaints Gastrointestinal: Gastrointestinal: Reports as per HPI and Reports no additional gastrointestinal complaints Genitourinary: Genitourinary: Reports no additional male genitourinary complaints and Reports as per HPI Musculoskeletal: Musculoskeletal: Reports no additional musculoskeletal complaints and Reports as per HPI Integumentary/Breasts: Skin/Breast: Reports system reviewed and no additional complaints, except as docu and Reports as per HPI Neurologic: Reports system reviewed and no additional complaints, except as documented and Reports as per HPI Psychiatric: Psychiatric: Reports no additional psychiatric complaints and Reports as per HPI Endocrine: Endocrine: Reports no additional endocrine complaints and Reports as per HPI Hematologic/Lymphatic: Hematologic/Lymphatic: Reports no additional hematologic/lymphatic complaints and Reports as per HPI Allergic/Immunologic: Allergic/Immunologic: Reports no a
[2021-06-30] MEDS: gemfibroziL 600 MG TABLET PO ×2 (10:00→17:36)
[2021-06-30] MEDS: ISOSORBIDE MONONITRATE 30 MG TAB.ER.24H PO (10:01)
[2021-06-30] MEDS: OPTI-GEN TAB 1 TABLET PO (10:01)
[2021-06-30] MEDS: METOPROLOL TARTRATE 50 MG TAB PO (10:01)
[2021-06-30] MEDS: ASCORBIC ACID 250 MG TABLET PO (10:01)
[2021-06-30] MEDS: levETIRAcetam 500 MG TABLET 1000 MG PO ×2 (10:01→17:36)
[2021-06-30] MEDS: PANTOPRAZOLE 40 MG TABLET PO (10:02)
[2021-06-30] MEDS: CLOPIDOGREL BISULFATE 75 MG TABLET PO (10:02)
[2021-06-30] MEDS: ASPIRIN 81 MG ENTERIC TABLET PO (10:02)
[2021-06-30] MEDS: VITAMIN B COMPLEX CAPSULE 1 CAP PO (10:02)
[2021-06-30 10:11] LABS: Hematocrit 32.1 % (42.0-52.0); Hemoglobin 10.5 g/dL (14.0-18.0); Mean Corpuscular HGB Conc 32.7 g/dl (32-36); Mean Corpuscular Hemoglobin 31.4 pg (26-34); Mean Corpuscular Volume 96.1 fl (80-100); Mean Platelet Volume 9.4 fl (7.4-10.4); Platelet Count Result 249 k/mm3 (150-375); Red Blood Count 3.34 M/mm3 (4.6-6.20); Red Cell Distribution Width 12.9 % (11.5-14.5); White Blood Count 7.5 K/mm3 (4.5-10.0)
[2021-06-30 10:22] LABS: Anion Gap 9 mmol/L (8-16); Blood Urea Nitrogen 13 mg/dL (9-20); Calcium 8.7 mg/dL (8.4-10.2); Carbon Dioxide 23 mmol/L (22-30); Chloride 99 mmol/L (98-107); Estimated CRCL calculation 59 ml/min; Estimated Glomerular Filt Rate > 60; Glucose 154 mg/dL (65-110); Magnesium 1.8 mg/dL (1.6-2.3); Potassium 3.9 mmol/L (3.4-5.0); Sodium 131 mmol/L (137-145)
[2021-06-30 12:05] LABS: Glucose Point of Care 122 mg/dl (65-105)
--- NOTE | 2021-06-30 12:21 | PM.IMPN ---
Progress Note: A&P Assessment and Plan (1) Syncope and collapse: Code(s): R55 - Syncope and collapse Status: Acute Assessment and Plan: ED-HPI Narrative: 80-year-old male with history of CAD recently seen here for chest pain presents after falling and hitting his head, patient unclear what exactly happened, he states that he was walking to the bathroom when next thing he knew he was on the ground, he does not think he had loss of consciousness. Denies any chest pain or difficulty breathing, is endorsing some headache and right shoulder pain at this time, he did have a cut to his forehead that was bleeding actively, and he is on a blood thinner. Denies any nausea or vomiting. patient 80-year-old male with history of severe coronary artery disease status post fall and laceration right forehead, patient did not any prodrome symptoms prior to fall, he denies any chest pain shortness of breath palpitation or dizziness, unable to provide what is exactly, his is present room, patient did not lose consciousness, after fall patient struck his head on heating baseboard, suspect most likely mechanical fall however patient has a severe coronary artery disease and has unamendable coronary vessel and was referred to tertiary care by his Cardiology, will consult his mailroom coordinator for further evaluation and recommendation, will continue to monitor will have a PT OT evaluate the patient, will benefit going acute rehab for strengthening exercise. 06/30/2021 interval history: patient remains clinically stable denies any complaint of chest pain shortness of breath palpitation, patient was seen by his Cardiology patient with an ejection fraction of 40-45% on last catheterization cardiac echo done yesterday showed slight improvement now ejection fraction is 50%, will continue to monitor will have a PT OT evaluate the patient patient will benefit going to acute rehab for strengthening exercise. (2) CAD (coronary artery disease): Code(s): I25.10 - Atherosclerotic heart disease of [place] coronary artery without angina pectoris Status: Acute Assessment and Plan: patient will be seen his mailroom coordinator and further recommendation to follow (3) Head injury: Qualifiers: Encounter type: initial encounter Qualified Code(s): S09.90XA - Unspecified injury of head, initial encounter Code(s): S09.90XA - Unspecified injury of head, initial encounter Status: Acute Assessment and Plan: patient has a laceration on right side of the forehead does repeat emergency department, CT scan of the head did not show any intra cranial bleeding Subjective Date/time seen: 06/30/21 12:21 ED-HPI Narrative: 80-year-old male with history of CAD recently seen here for chest pain presents after falling and hitting his head, patient unclear what exactly happened, he states that he was walking to the bathroom when next thing he knew he was on the ground, he does not think he had loss of consciousness. Denies any chest pain or difficulty breathing, is endorsing some headache and right shoulder pain at this time, he did have a cut to his forehead that was bleeding actively, and he is on a blood thinner. Denies any nausea or vomiting. patient 80-year-old male with history of severe coronary artery disease status post fall and laceration right forehead, patient did not any prodrome symptoms prior to fall, he denies any chest pain shortness of breath palpitation or dizziness, unable to provide what is exactly, his is present room, patient did not lose consciousness, after fall patient struck his head on heating baseboard, suspect most likely mechanical fall however patient has a severe coronary artery disease and has unamendable coronary vessel and was referred to tertiary care by his Cardiology, will consult his mailroom coordinator for further evaluation and recommendation, will continue to monitor will have a PT OT evaluate the patient, will benefi
--- NOTE | 2021-06-30 16:28 | ECHO_ITS ---
Patient Info Name: Ramiro Enciso Age: 80 years : 1940 Gender: Male Ht: 67 in Wt: 158 lbs BSA: 1.85 m2 HR: 67 bpm BP: 120 / 68 mmHg Heart Rhythm: Sinus Rhythm Technical Quality: Good Exam Date: 06/30/2021 6:46 AM Exam Location: [facility] Patient Status: Inpatient Admit Date: 06/29/2021 Staff Ordering Physician: Carlos Painter MD Arboriculture Instructor: Tereza Bagley RDCS Attending Provider: Jonathan Arboleda DO Referring Physician: Madina BANERJEE; Exam Type: CA echo doppler color flow Study Info Indications R55 - Syncope and collapse Complete two-dimensional, color flow and Doppler transthoracic echocardiogram is performed. Summary 1. Complete two-dimensional, color flow and Doppler transthoracic echocardiogram is performed. 2. Left ventricular chamber dimension is normal. 3. Left ventricular systolic function is normal, estimated at 50-55%. 4. There is mildly increased left ventricular wall thickness. 5. The left ventricular diastolic function is grade I diastolic dysfunction. 6. Right ventricular chamber dimension is mildly enlarged. 7. Left atrial chamber dimension is mildly enlarged. 8. There is moderate aortic valve sclerosis. 9. There is mild mitral valve regurgitation. 10. There is mild tricuspid valve regurgitation. Left Ventricle Left ventricular chamber dimension is normal. Left ventricular systolic function is normal, estimated at 50-55%. There is mildly increased left ventricular wall thickness. The left ventricular diastolic function is grade I diastolic dysfunction. Right Ventricle Right ventricular chamber dimension is mildly enlarged. Right ventricular systolic function is normal. Left Atria Left atrial chamber dimension is mildly enlarged. Right Atria Right atrial chamber dimension is normal. Atrial Septum Intact interatrial septum visualized by color flow imaging. Aortic Valve The aortic valve is trileaflet. There is moderate aortic valve sclerosis. There is no aortic valve stenosis. There is trace aortic valve regurgitation. Pulmonic Valve The pulmonic valve is normal. There is no pulmonic valve stenosis. There is trace pulmonic regurgitation. Mitral Valve The mitral valve has normal leaflets. There is no mitral valve stenosis. There is mild mitral valve regurgitation. Tricuspid Valve The tricuspid valve leaflets are normal. There is no significant tricuspid valve stenosis. There is mild tricuspid valve regurgitation. No pulmonary hypertension, estimated pulmonary arterial systolic pressure is 26 mmHg. Pericardium/Pleural The pericardium appears normal. There is no pericardial effusion. Inferior Vena Cava Normal inferior vena cava with >50% collapse upon inspiration consistent with normal right atrial pressure, 5 mmHg. Aorta The aortic root size at the sinus of Valsalva is normal. Left Ventricular Outflow Tract Name Value Normal LVOT 2D LVOT Diameter 2.2 cm LVOT Doppler LVOT Peak Gradient 3 mmHg LVOT Mean Gradient 1 mmHg LVOT VTI 2
[2021-06-30 16:30] LABS: Glucose Point of Care 126 mg/dl (65-105)
[2021-06-30] MEDS: ATORVASTATIN 40 MG TABLET PO (20:52)
[2021-07-01] VITALS (13 sets, daily range): BP systolic 105–126; BP diastolic 50–63; PULSE 61–96; RESP 18; TEMP 36.3–36.6; O2SAT 97–99
[2021-07-01 07:53] LABS: Hematocrit 28.3 % (42.0-52.0); Hemoglobin 9.4 g/dL (14.0-18.0); Mean Corpuscular HGB Conc 33.2 g/dl (32-36); Mean Corpuscular Hemoglobin 31.1 pg (26-34); Mean Corpuscular Volume 93.7 fl (80-100); Mean Platelet Volume 9.4 fl (7.4-10.4); Platelet Count Result 221 k/mm3 (150-375); Red Blood Count 3.02 M/mm3 (4.6-6.20); Red Cell Distribution Width 12.6 % (11.5-14.5); White Blood Count 6.2 K/mm3 (4.5-10.0)
[2021-07-01 07:55] LABS: Glucose Point of Care 110 mg/dl (65-105)
[2021-07-01 08:01] LABS: Anion Gap 6 mmol/L (8-16); Blood Urea Nitrogen 16 mg/dL (9-20); Calcium 8.6 mg/dL (8.4-10.2); Carbon Dioxide 25 mmol/L (22-30); Chloride 99 mmol/L (98-107); Estimated CRCL calculation 53 ml/min; Estimated Glomerular Filt Rate > 60; Glucose 99 mg/dL (65-110); Potassium 4.1 mmol/L (3.4-5.0); Sodium 130 mmol/L (137-145)
--- NOTE | 2021-07-01 09:31 | PM.PNCARD ---
Progress Note: A&P Assessment and Plan (1) Syncope and collapse: Code(s): R55 - Syncope and collapse Status: Acute Assessment and Plan: Unexplained most likely vasovagal etiology, however, no reported prodrome symptoms a promptly regained consciousness without noted associated symptoms. Cannot exclude tachy arrhythmia such as ventricular tachycardia given LV dysfunction and CAD, however, octavio arrhythmia also a possibility. He is not relating symptoms suggestive seizure or acute CVA. Electrolytes stable. He does not appear to be intravascular volume depleted. Telemetry is unremarkable. Orthostatics were also unremarkable. Most likely etiology though is still vasovagal or an orthostatic event. Cannot exclude arrhythmia but nothing found at this point. Plan for outpatient boiler inspector upon discharge and follow-up with primary cardiology (2) Ischemic cardiomyopathy: Code(s): I25.5 - Ischemic cardiomyopathy Status: Acute Assessment and Plan: Well compensated, EF 50 % by echo. Continue medical therapy at this time. (3) CAD (coronary artery disease): Code(s): I25.10 - Atherosclerotic heart disease of [place] coronary artery without angina pectoris Status: Acute Assessment and Plan: Continue dual antiplatelet therapy provided no complications with bleeding at superficial laceration from fall. (4) Hypertension: Code(s): I10 - Essential (primary) hypertension Status: Chronic Assessment and Plan: Stable thus far. Avoid significant hypotension. Orthostatic vital signs. (5) Diabetes mellitus: Code(s): E11.9 - Type 2 diabetes mellitus without complications Status: Acute Assessment and Plan: Per primary service. Blood sugar stable no documented evidence of hypoglycemia. (6) Closed head injury: Qualifiers: Encounter type: initial encounter Qualified Code(s): S09.90XA - Unspecified injury of head, initial encounter Code(s): S09.90XA - Unspecified injury of head, initial encounter Status: Acute Assessment and Plan: Management Per primary service status post suture. Subjective Date/time seen: 07/01/21 09:31 Interval history: 80-year-old admitted for syncope. Date of service 06/30/2021: Feels okay. No chest pain, shortness of breath. Date of service 07/01/2021: Feels good. No complaints of chest pain or shortness of breath. No headache Review of Systems Review of Systems: All systems reviewed & are unremarkable except as noted in HPI and below Constitutional: Constitutional: Reports as per HPI and Reports no additional constitutional complaints Eyes: Eyes: Reports as per HPI and Reports no additional eye complaints ENT: Reports system reviewed and no additional complaints, except as documented and Reports as per HPI Cardiovascular: Cardiovascular: Reports as per HPI and Reports no additional cardiovascular complaints Respiratory: Respiratory: Reports as per HPI and Reports no additional respiratory complaints Gastrointestinal: Gastrointestinal: Reports as per HPI and Reports no additional gastrointestinal complaints Genitourinary: Genitourinary: Reports no additional male genitourinary complaints and Reports as per HPI Musculoskeletal: Musculoskeletal: Reports no additional musculoskeletal complaints and Reports as per HPI Integumentary/Breasts: Skin/Breast: Reports system reviewed and no additional complaints, except as docu and Reports as per HPI Neurologic: Reports system reviewed and no additional complaints, except as documented and Reports as per HPI Psychiatric: Psychiatric: Reports no additional psychiatric complaints and Reports as per HPI Endocrine: Endocrine: Reports no additional endocrine complaints and Reports as per HPI Hematologic/Lymphatic: Hematologic/Lymphatic: Reports no additional hematologic/lymphatic complaints and Reports as per HPI Allergic/Immunologic:
[2021-07-01] MEDS: METOPROLOL TARTRATE 50 MG TAB PO ×2 (10:06→21:20)
[2021-07-01] MEDS: VITAMIN B COMPLEX CAPSULE 1 CAP PO (10:07)
[2021-07-01] MEDS: levETIRAcetam 500 MG TABLET 1000 MG PO ×2 (10:07→17:59)
[2021-07-01] MEDS: ASCORBIC ACID 250 MG TABLET PO (10:07)
[2021-07-01] MEDS: OPTI-GEN TAB 1 TABLET PO (10:07)
[2021-07-01] MEDS: ASPIRIN 81 MG ENTERIC TABLET PO (10:08)
[2021-07-01] MEDS: ISOSORBIDE MONONITRATE 30 MG TAB.ER.24H PO (10:08)
[2021-07-01] MEDS: PANTOPRAZOLE 40 MG TABLET PO (10:08)
[2021-07-01] MEDS: CLOPIDOGREL BISULFATE 75 MG TABLET PO (10:08)
[2021-07-01] MEDS: gemfibroziL 600 MG TABLET PO ×2 (10:08→17:59)
[2021-07-01] MEDS: SODIUM CHLORIDE 500 MG TABLET PO (10:08)
[2021-07-01 11:50] LABS: Glucose Point of Care 113 mg/dl (65-105)
--- NOTE | 2021-07-01 12:44 | PM.IMPN ---
Progress Note: A&P Assessment and Plan (1) Syncope and collapse: Code(s): R55 - Syncope and collapse Status: Acute Assessment and Plan: ED-HPI Narrative: 80-year-old male with history of CAD recently seen here for chest pain presents after falling and hitting his head, patient unclear what exactly happened, he states that he was walking to the bathroom when next thing he knew he was on the ground, he does not think he had loss of consciousness. Denies any chest pain or difficulty breathing, is endorsing some headache and right shoulder pain at this time, he did have a cut to his forehead that was bleeding actively, and he is on a blood thinner. Denies any nausea or vomiting. patient 80-year-old male with history of severe coronary artery disease status post fall and laceration right forehead, patient did not any prodrome symptoms prior to fall, he denies any chest pain shortness of breath palpitation or dizziness, unable to provide what is exactly, his is present room, patient did not lose consciousness, after fall patient struck his head on heating baseboard, suspect most likely mechanical fall however patient has a severe coronary artery disease and has unamendable coronary vessel and was referred to tertiary care by his Cardiology, will consult his division road supervisor for further evaluation and recommendation, will continue to monitor will have a PT OT evaluate the patient, will benefit going acute rehab for strengthening exercise. 06/30/2021 interval history: patient remains clinically stable denies any complaint of chest pain shortness of breath palpitation, patient was seen by his Cardiology patient with an ejection fraction of 40-45% on last catheterization cardiac echo done yesterday showed slight improvement now ejection fraction is 50%, will continue to monitor will have a PT OT evaluate the patient patient will benefit going to acute rehab for strengthening exercise. 07/01/2021 interval history: patient remains clinically stable denies any complaint of chest pain shortness of breath palpitation, patient work with the physical therapy and able to ambulate without any complaints, patient was seen by his Cardiology patient with an ejection fraction of 40-45% on last catheterization cardiac echo done yesterday showed slight improvement now ejection fraction is 50%, telemetry does not show any arrhythmias and orthostatic a normal etiology of syncopal episode is uncertain, division road supervisor recommending event monitor upon discharge, will continue to monitor will have a PT OT evaluate the patient patient will benefit going to acute rehab for strengthening exercise. if remains clinically stable will discharge the patient tomorrow. (2) CAD (coronary artery disease): Code(s): I25.10 - Atherosclerotic heart disease of [place] coronary artery without angina pectoris Status: Acute Assessment and Plan: patient will be seen his division road supervisor and further recommendation to follow (3) Head injury: Qualifiers: Encounter type: initial encounter Qualified Code(s): S09.90XA - Unspecified injury of head, initial encounter Code(s): S09.90XA - Unspecified injury of head, initial encounter Status: Acute Assessment and Plan: patient has a laceration on right side of the forehead does repeat emergency department, CT scan of the head did not show any intra cranial bleeding Subjective Date/time seen: 07/01/21 12:44 ED-HPI Narrative: 80-year-old male with history of CAD recently seen here for chest pain presents after falling and hitting his head, patient unclear what exactly happened, he states that he was walking to the bathroom when next thing he knew he was on the ground, he does not think he had loss of consciousness. Denies any chest pain or difficulty breathing, is endorsing some headache and right shoulder pain at this time, he did have a cut to his forehead that was bleeding actively, and he is on a b
[2021-07-01 14:59] LABS: Appearance Urine Clear (Clear); Bilirubin Urine Negative (Negative); Blood Urine Negative (Negative); Color Urine Yellow (Yellow); Glucose Urine UA Negative (Negative); Ketones Urine Negative (Negative); Leukocyte Esterase Ur Trace LEU/UL (NEGATIVE); Nitrate Urine Negative (Negative); Protein Urine Negative (Negative); Urobilinogen Urine 0.2 mg/dL (<2.0)
[2021-07-01 15:01] LABS: Add Urine Microscopic? NO
[2021-07-01 16:26] LABS: Glucose Point of Care 115 mg/dl (65-105)
[2021-07-01] MEDS: ATORVASTATIN 40 MG TABLET PO (21:20)
[2021-07-02] VITALS: PULSE 69
[2021-07-02 04:00] VITALS: PULSE 58
[2021-07-02 06:00] VITALS: BP 129/65; PULSE 62; RESP 16; TEMP 36.1; O2SAT 98
[2021-07-02 06:44] LABS: Hematocrit 28.5 % (42.0-52.0); Hemoglobin 9.8 g/dL (14.0-18.0); Mean Corpuscular HGB Conc 34.4 g/dl (32-36); Mean Corpuscular Hemoglobin 31.9 pg (26-34); Mean Corpuscular Volume 92.8 fl (80-100); Mean Platelet Volume 9.1 fl (7.4-10.4); Platelet Count Result 221 k/mm3 (150-375); Red Blood Count 3.07 M/mm3 (4.6-6.20); Red Cell Distribution Width 12.6 % (11.5-14.5); White Blood Count 5.3 K/mm3 (4.5-10.0)
[2021-07-02 06:57] LABS: Anion Gap 6 mmol/L (8-16); Blood Urea Nitrogen 13 mg/dL (9-20); Calcium 8.8 mg/dL (8.4-10.2); Carbon Dioxide 27 mmol/L (22-30); Chloride 100 mmol/L (98-107); Estimated CRCL calculation 59 ml/min; Estimated Glomerular Filt Rate > 60; Glucose 99 mg/dL (65-110); Potassium 3.9 mmol/L (3.4-5.0); Sodium 133 mmol/L (137-145)
[2021-07-02 08:00] VITALS: PULSE 64; PULSE 85; RESP 16; O2SAT 98
--- NOTE | 2021-07-02 09:51 | PM.PNCARD ---
Progress Note: A&P Assessment and Plan (1) Syncope and collapse: Code(s): R55 - Syncope and collapse Status: Acute Assessment and Plan: Unexplained most likely vasovagal etiology, however, no reported prodrome symptoms a promptly regained consciousness without noted associated symptoms. Cannot exclude tachy arrhythmia such as ventricular tachycardia given LV dysfunction and CAD, however, octavio arrhythmia also a possibility. He is not relating symptoms suggestive seizure or acute CVA. Electrolytes stable. He does not appear to be intravascular volume depleted. Telemetry is unremarkable. Orthostatics were also unremarkable. Most likely etiology though is still vasovagal or an orthostatic event. Cannot exclude arrhythmia but nothing found at this point. Plan for outpatient canoe inspector final upon discharge and follow-up with primary cardiology (2) Ischemic cardiomyopathy: Code(s): I25.5 - Ischemic cardiomyopathy Status: Acute Assessment and Plan: Well compensated, EF 50 % by echo. Continue medical therapy at this time. (3) CAD (coronary artery disease): Code(s): I25.10 - Atherosclerotic heart disease of [place] coronary artery without angina pectoris Status: Acute Assessment and Plan: Continue dual antiplatelet therapy provided no complications with bleeding at superficial laceration from fall. (4) Hypertension: Code(s): I10 - Essential (primary) hypertension Status: Chronic Assessment and Plan: Stable thus far. Avoid significant hypotension. Orthostatic vital signs. (5) Diabetes mellitus: Code(s): E11.9 - Type 2 diabetes mellitus without complications Status: Acute Assessment and Plan: Per primary service. Blood sugar stable no documented evidence of hypoglycemia. (6) Closed head injury: Qualifiers: Encounter type: initial encounter Qualified Code(s): S09.90XA - Unspecified injury of head, initial encounter Code(s): S09.90XA - Unspecified injury of head, initial encounter Status: Acute Assessment and Plan: Management Per primary service status post suture. Subjective Date/time seen: 07/02/21 09:51 Interval history: 80-year-old admitted for syncope. Date of service 06/30/2021: Feels okay. No chest pain, shortness of breath. Date of service 07/01/2021: Feels good. No complaints of chest pain or shortness of breath. No headache Date of service 07/02/2021: No acute events overnight. Feels well this morning. Denies any chest pain, palpitations, dizziness, lightheadedness, syncope, pre syncope. No complaints of any kind. Review of Systems Review of Systems: All systems reviewed & are unremarkable except as noted in HPI and below Constitutional: Constitutional: Reports as per HPI and Reports no additional constitutional complaints Eyes: Eyes: Reports as per HPI and Reports no additional eye complaints ENT: Reports system reviewed and no additional complaints, except as documented and Reports as per HPI Cardiovascular: Cardiovascular: Reports as per HPI and Reports no additional cardiovascular complaints Respiratory: Respiratory: Reports as per HPI and Reports no additional respiratory complaints Gastrointestinal: Gastrointestinal: Reports as per HPI and Reports no additional gastrointestinal complaints Genitourinary: Genitourinary: Reports no additional male genitourinary complaints and Reports as per HPI Musculoskeletal: Musculoskeletal: Reports no additional musculoskeletal complaints and Reports as per HPI Integumentary/Breasts: Skin/Breast: Reports system reviewed and no additional complaints, except as docu and Reports as per HPI Neurologic: Reports system reviewed and no additional complaints, except as documented and Reports as per HPI Psychiatric: Psychiatric: Reports no additional psychiatric complaints and Reports as per HPI Endocrine: Endocrine: Reports no kanika
[2021-07-02 09:59] VITALS: PULSE 85
[2021-07-02] MEDS: ASCORBIC ACID 250 MG TABLET PO (09:59)
[2021-07-02] MEDS: METOPROLOL TARTRATE 50 MG TAB PO (09:59)
[2021-07-02] MEDS: ISOSORBIDE MONONITRATE 30 MG TAB.ER.24H PO (10:01)
[2021-07-02] MEDS: levETIRAcetam 500 MG TABLET 1000 MG PO (10:01)
[2021-07-02] MEDS: PANTOPRAZOLE 40 MG TABLET PO (10:01)
[2021-07-02] MEDS: VITAMIN B COMPLEX CAPSULE 1 CAP PO (10:01)
[2021-07-02] MEDS: SODIUM CHLORIDE 500 MG TABLET PO (10:01)
[2021-07-02] MEDS: CLOPIDOGREL BISULFATE 75 MG TABLET PO (10:01)
[2021-07-02] MEDS: OPTI-GEN TAB 1 TABLET PO (10:01)
[2021-07-02] MEDS: gemfibroziL 600 MG TABLET PO (10:01)
[2021-07-02] MEDS: ASPIRIN 81 MG ENTERIC TABLET PO (10:01)
[2021-07-02 12:00] VITALS: PULSE 103
--- NOTE | 2021-07-02 12:35 | PM.DS ---
DS: Admitting Diagnosis Discharge Date 07/02/2021 Admitting Diagnosis Fall DS: Discharge Diagnosis Discharge Diagnosis (1) Syncope and collapse: Code(s): R55 - Syncope and collapse Status: Acute Assessment and Plan: ED-HPI Narrative: 80-year-old male with history of CAD recently seen here for chest pain presents after falling and hitting his head, patient unclear what exactly happened, he states that he was walking to the bathroom when next thing he knew he was on the ground, he does not think he had loss of consciousness. Denies any chest pain or difficulty breathing, is endorsing some headache and right shoulder pain at this time, he did have a cut to his forehead that was bleeding actively, and he is on a blood thinner. Denies any nausea or vomiting. patient 80-year-old male with history of severe coronary artery disease status post fall and laceration right forehead, patient did not any prodrome symptoms prior to fall, he denies any chest pain shortness of breath palpitation or dizziness, unable to provide what is exactly, his is present room, patient did not lose consciousness, after fall patient struck his head on heating baseboard, suspect most likely mechanical fall however patient has a severe coronary artery disease and has unamendable coronary vessel and was referred to tertiary care by his Cardiology, will consult his building rental manager for further evaluation and recommendation, will continue to monitor will have a PT OT evaluate the patient, will benefit going acute rehab for strengthening exercise. 06/30/2021 interval history: patient remains clinically stable denies any complaint of chest pain shortness of breath palpitation, patient was seen by his Cardiology patient with an ejection fraction of 40-45% on last catheterization cardiac echo done yesterday showed slight improvement now ejection fraction is 50%, will continue to monitor will have a PT OT evaluate the patient patient will benefit going to acute rehab for strengthening exercise. 07/01/2021 interval history: patient remains clinically stable denies any complaint of chest pain shortness of breath palpitation, patient work with the physical therapy and able to ambulate without any complaints, patient was seen by his Cardiology patient with an ejection fraction of 40-45% on last catheterization cardiac echo done yesterday showed slight improvement now ejection fraction is 50%, telemetry does not show any arrhythmias and orthostatic a normal etiology of syncopal episode is uncertain, building rental manager recommending event monitor upon discharge, will continue to monitor will have a PT OT evaluate the patient patient will benefit going to acute rehab for strengthening exercise. if remains clinically stable will discharge the patient tomorrow. (2) CAD (coronary artery disease): Code(s): I25.10 - Atherosclerotic heart disease of [place] coronary artery without angina pectoris Status: Acute Assessment and Plan: patient will be seen his building rental manager and further recommendation to follow (3) Head injury: Qualifiers: Encounter type: initial encounter Qualified Code(s): S09.90XA - Unspecified injury of head, initial encounter Code(s): S09.90XA - Unspecified injury of head, initial encounter Status: Acute Assessment and Plan: patient has a laceration on right side of the forehead does repeat emergency department, CT scan of the head did not show any intra cranial bleeding DS: Summary Hospital Course Reason for hospitalization: ED-HPI Narrative: 80-year-old male with history of CAD recently seen here for chest pain presents after falling and hitting his head, patient unclear what exactly happened, he states that he was walking to the bathroom when next thing he knew he was on the ground, he does not think he had loss of consciousness. Denies any chest pain or difficulty breathing, is endorsing some headache and right shoulde
== END 2021-07-02 14:05 | disposition home health service (06) ==
LOC: ANHED 06:42 → ANH3MEDSUR 07-02 12:35
PROVIDERS: Admitting Provider Internal Medicine; Emergency Provider Emergency Medicine; PCP Family Medicine; Visit Provider Family Medicine
DX: S09.90XA Unspecified injury of head, initial encounter (principal); S01.81XA Laceration without foreign body of other part of head, initial encounter; R55 Syncope and collapse; W18.30XA Fall on same level, unspecified, initial encounter; I25.10 Atherosclerotic heart disease of native coronary artery without angina pectoris; K21.9 Gastro-esophageal reflux disease without esophagitis; Z86.73 Personal history of transient ischemic attack (TIA), and cerebral infarction without residual deficits; I10 Essential (primary) hypertension; E78.5 Hyperlipidemia, unspecified; Z87.891 Personal history of nicotine dependence; I25.5 Ischemic cardiomyopathy; E11.9 Type 2 diabetes mellitus without complications
CPT/HCPCS: 36415; 70450; 72125; 73030; 73130; 80048; 80053; 81003; 82948; 83735; 85025; 85027; 90471; 90715; 93005; 93306; 97110; 97116; 97161; 97165; 97530; 97535; 99285; A9270; G0378

== ENCOUNTER 2021-11-01 13:30 | Outpatient (RCR) | payer MEDICARE, SELFPAY ==
[2021-10-15 14:11] LABS: Glucose Point of Care 104 mg/dl (65-105)
== END 2021-11-01 19:30 | disposition home or self-care (01) ==
LOC: ANHCPREHAB 13:30
PROVIDERS: PCP Family Medicine; Visit Provider Nurse Practitioner
DX: Z95.5 Presence of coronary angioplasty implant and graft (principal)
CPT/HCPCS: 93798

== ENCOUNTER 2022-01-25 12:56 | Emergency (ER) | payer MEDICARE, SELFPAY ==
--- NOTE | ~2022-01-25 | XR_ITS ---
XR chest 2V 01/25/2022 13:22 Indication: Chest pain Procedure: 2 view chest Comparison: Comparison to multiple prior studies sequentially, with oldest reviewed study dated 09/03. Findings: Heart size normal. No focal air space disease, pulmonary edema, pleural effusion or suspect ed pneumothorax. No acute osseous abnormality. There are cholecystectomy clips. Impression: 1: No acute cardiopulmonary disease. Reviewed, dictated and finalized at location [facility]. [employer] Impression: 1: No acute cardiopulmonary disease.
--- NOTE | 2022-01-25 12:57 | ECG_ITS ---
Measurements Intervals [place] Rate: 68 P: 50 RI: 206 QRS: -43 QRSD: 113 T: 22 QT: 378 QTc: 403 Interpretive Statements SINUS RHYTHM MARKED LEFT AXIS DEVIATION [QRS AXIS < -30] INCOMPLETE RIGHT BUNDLE BRANCH BLOCK [90+ ms QRS DURATION, TERMINAL R IN V1/V2, 40+ ms S IN I/aVL/V4/V5/V6] COMPARED TO ECG 06/29/2021 05:07:40 HEART RATE IS SLOWER NO OTHER SIGNIFICANT CHANGE Electronically Signed On 01-25-2022 17:21:41 HEAVY MEDIA OPERATOR by Aung Rick M.D.
[2022-01-25 13:08] VITALS: BP 140/70; PULSE 73; RESP 16; TEMP 36.4; O2SAT 98
[2022-01-25 13:17] LABS: Basophils Absolute Auto 0.1 K/mm3 (0.0-0.1); Basophils Percent Auto 0.7 % (0.2-1.2); Eosinophils Absolute Auto 0.1 K/mm3 (0-0.3); Eosinophils Percent Auto 1.9 % (0-4.4); Hematocrit 40.8 % (42.0-52.0); Hemoglobin 13.6 g/dL (14.0-18.0); Immature Granulocyte Absolute 0.04 K/mm3 (0.00-0.031); Immature Granulocyte Percent A 0.6 % (0-0.5); Lymphocytes Absolute Auto 1.02 K/mm3 (0.9-3.2); Lymphocytes Percent Auto 15.2 % (18.3-44.2); Mean Corpuscular HGB Conc 33.3 g/dl (32-36); Mean Corpuscular Hemoglobin 31.6 pg (26-34); Mean Corpuscular Volume 94.9 fl (80-100); Mean Platelet Volume 8.4 fl (7.4-10.4); Monocytes Absolute Auto 0.6 K/mm3 (0.1-0.6); Monocytes Percent Auto 8.8 % (2.6-8.5); Neutrophils Absolute Auto 4.9 K/mm3 (1.3-6.7); Neutrophils Percent Auto 72.8 % (45.5-73.1); Platelet Count Result 248 k/mm3 (150-375); Red Cell Distribution Width 12.9 % (11.5-14.5); White Blood Count 6.7 K/mm3 (4.5-10.0)
[2022-01-25 13:28] LABS: INR 1.1; Partial Thromboplastin Time 27.2 SECONDS (22.3-36.8); Prothrombin Time 13.4 Seconds (11.1-14.7)
[2022-01-25 13:29] LABS: Alanine Aminotransferase 28 U/L (6-50); Albumin Level 4.5 g/dL (3.5-5.1); Alkaline Phosphatase 64 U/L (38-126); Anion Gap 5 mmol/L (8-16); Aspartate Amino Transferase 34 U/L (17-59); Bilirubin,Total 0.4 mg/dL (0.2-1.3); Blood Urea Nitrogen 11 mg/dL (9-20); Calcium 8.8 mg/dL (8.4-10.2); Carbon Dioxide 29 mmol/L (22-30); Chloride 95 mmol/L (98-107); Estimated CRCL calculation 64 ml/min; Estimated Glomerular Filt Rate > 60; Glucose 145 mg/dL (65-110); Lipase 188 U/L (23-300); Potassium 4.4 mmol/L (3.4-5.0); Sodium 129 mmol/L (137-145)
[2022-01-25 13:40] LABS: Troponin I < 0.012 ng/mL (0.000-0.034)
--- NOTE | 2022-01-25 15:18 | PC.NURSE ---
Patient's son should be called for patient transport back home. Giuliano Enciso [phone]
[2022-01-25 16:47] LABS: Troponin I < 0.012 ng/mL (0.000-0.034)
[2022-01-25 17:59] VITALS: BP 166/70; PULSE 70; RESP 20; O2SAT 100
--- NOTE | 2022-01-25 17:59 | ED.CHESTPAIN ---
HPI - Chest Pain General Chief Complaint: Chest Pain Stated Complaint: chest pain since yesterday Time Seen by Provider: 01/25/22 17:58 History of Present Illness HPI narrative: Patient is an 81-year-old male with a history of CAD status post 4 stents, hypertension, hyperlipidemia presenting with chest pain. Patient states that he has had intermittent chest pain for the last several weeks but today it became acutely severe. States that it is substernal and sharp in nature. States that sometimes it feels like pressure. Also reports associated dyspnea. Patient states that he had stents placed last year and since that time he has not had any chest pain. Patient denies recent fevers, headache, lightheadedness, abdominal pain, nausea or vomiting, diarrhea, leg swelling. Related Data Home Medications Medication Instructions Recorded Confirmed Prevagen 40 mg PO DAILY 06/29/21 08/10/21 ascorbic acid (vitamin C) 500 mg 250 mg PO DAILY 06/29/21 08/10/21 tablet gxpniyzlmvcp-uksngsde-scybio tablet 1 tablet PO DAILY 06/29/21 08/10/21 vit C 250 mg-vit E 90 mg-zinc 40 1 tablet PO BID 06/29/21 08/10/21 mg-copper 1 ed-zxbfqy-iddiwb capsule (PreserVision AREDS-2) vitamin B complex (B 1 tablet PO DAILY 06/29/21 08/10/21 Complex-Vitamin B12 tablet) atorvastatin 40 mg tablet mg 01/25/22 clopidogrel 75 mg tablet mg 01/25/22 escitalopram oxalate 5 mg tablet mg 01/25/22 gemfibrozil 600 mg tablet mg 01/25/22 levetiracetam 1,000 mg tablet mg PO 01/25/22 01/25/22 metoprolol tartrate 50 mg tablet mg 01/25/22 pantoprazole 40 mg tablet,delayed mg PO 01/25/22 release Allergies Allergy/AdvReac Type Severity Reaction Status Date / Time No Known Allergies Allergy Verified 01/25/22 12:56 Review of Systems Review of Systems: All systems reviewed & are unremarkable except as noted in HPI and below PMFSH Past Medical History Medical History Chronic GERD Coronary artery disease Gastritis Glaucoma 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 He had 5 children. And lives with his 2nd who is a durable power thread cutter for healthcare. 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 code status full code. Smoking packs per day: 1.5 Smoking cigarettes per day: 30.0 Years smoked: 10 Smoking pack-years: 15.00 Smoking status: Former smoker Tobacco type: cigarettes and cigars Smokeless tobacco user: chewing tobacco Second hand tobacco smoke exposure: Yes Alcohol intake: former Substance use: never Substance use type: does not use Spiritual care concerns: No Exam Narrative: GENERAL: Elderly male lying in bed in no acute distress HEAD: Normocephalic, atraumatic. EYES: PERRLA and EOMI. ENT: Nares clear, no rhinorrhea or epistaxis. Mucous membranes moist. NECK: Supple. CHEST: Clear to auscultation. No respiratory distress. HEART: Regular rate and rhythm. No murmur heard. Normal peripheral pulses. ABDOMEN: Soft, nontender, nondistended, normal active bowel sounds. EXTREMITIES: Normal range of motion. No edema. SKIN: Warm, dry, no rash. NEURO: No focal deficits. Alert and oriented x3. PSYCH: Normal mood and affect. Course Vital Signs Vital signs: Vital Signs Temper[place]
[2022-01-25 18:01] VITALS: BP 152/65; PULSE 67; RESP 15; O2SAT 100
[2022-01-25] MEDS: ASPIRIN 81 MG CHEWABLE TABLET 324 MG PO (18:08)
[2022-01-25 18:31] VITALS: BP 143/72; PULSE 68; RESP 16; O2SAT 100
[2022-01-25 19:18] LABS: Troponin I < 0.012 ng/mL (0.000-0.034)
== END 2022-01-25 20:59 | disposition home or self-care (01) ==
PROVIDERS: Emergency Provider Emergency Medicine; PCP Family Medicine
DX: R07.89 Other chest pain (principal); I25.10 Atherosclerotic heart disease of native coronary artery without angina pectoris; I10 Essential (primary) hypertension; E78.5 Hyperlipidemia, unspecified; K21.9 Gastro-esophageal reflux disease without esophagitis; Z95.5 Presence of coronary angioplasty implant and graft; Z96.653 Presence of artificial knee joint, bilateral; Z98.49 Cataract extraction status, unspecified eye; Z86.73 Personal history of transient ischemic attack (TIA), and cerebral infarction without residual deficits; Z87.891 Personal history of nicotine dependence; I45.10 Unspecified right bundle-branch block
CPT/HCPCS: 36415; 71046; 80053; 83690; 84484; 85025; 85610; 85730; 93005; 99284; A9270

== ENCOUNTER 2022-04-16 12:18 | Outpatient (CLI) | payer MEDICARE, SELFPAY ==
--- NOTE | ~2022-04-16 | CT_ITS ---
EXAMINATION: CT brain wo con DATE: 04/16/2022 12:53 INDICATION: Cerebral vascular accident. TECHNIQUE: Computed tomography (CT) of the head was performed without intravenous contrast. The mA wa s adjusted according to patient size. Iterative reconstruction technique was employed. The dose-lengt h product was 605.33 mGy-cm. COMPARISON: Head CT 06/29/2021 FINDINGS: There are old infarcts in the cerebellum bilaterally. There is an old infarct involving rig ht parietal lobe. There is no intracranial hemorrhage, acute infarction, or abnormal intracranial mas s lesion. The ventricles are normal in size. There is mild mucosal thickening in the ethmoid sinuses. The mastoid air cells are normal. There are likely changes of right ocular lens replacement surgery. IMPRESSION: 1. 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 Reviewed, dictated and finalized at location A. VISION INSTALLER HELPER
== END 2022-04-16 12:19 | disposition home or self-care (01) ==
PROVIDERS: PCP Family Medicine; Visit Provider Physician Assistant
DX: R41.82 Altered mental status, unspecified (principal); Z86.73 Personal history of transient ischemic attack (TIA), and cerebral infarction without residual deficits
CPT/HCPCS: 70450

== ENCOUNTER 2023-02-04 15:03 | Inpatient (IN) | payer MEDICARE, SELFPAY ==
[2023-02-04] VITALS (17 sets, daily range): BP systolic 82–120; BP diastolic 46–66; PULSE 74–97; RESP 15–23; TEMP 36.4; O2SAT 89–97
--- NOTE | ~2023-02-04 | XR_ITS ---
EXAMINATION: XR surgery orthopedic DATE: 02/05/2023 12:18 INDICATION: Intertrochanteric nailing of an intratrochanteric right femur fracture. TECHNIQUE: 6 fluoroscopic images of the right femur were obtained during procedure performed by Dr. Darline severino. Radiologist was not present for the imaging or procedure. The amount of fluoroscopy time used during this procedure was 0.8 minutes. COMPARISON: None. FINDINGS: Fixation of the previously noted intratrochanteric fracture of the proximal right femur wit h an intramedullary thais, femoral neck dynamic compression screw and additional subtrochanteric interl ocking screw. Alignment of the main proximal distal fragments appears near-anatomic. There is possibl e cortical with residual medial distraction of the lesser trochanteric fragment which is not included within the fixation. Partially visualized femoral component for a right total knee arthroplasty. No new fractures identified. Atherosclerotic calcifications along the right femoral and popliteal arteri es. IMPRESSION: 1. Fluoroscopy utilized during open reduction internal fixation of a comminuted intratrochanteric fra cture of the right femur which is now in near-anatomic alignment with exception of unchanged mild dis traction of the lesser trochanteric fragment which remains unfixed. Reviewed, dictated and finalized at location A. ICAL DEVICE SALES REPRESENTATIVE IMPRESSION: 1. Fluoroscopy utilized during open reduction internal fixation of a comminuted intratrochanteric fracture of the right femur which is now in near-anatomic al ignment with exception of unchanged mild distraction of the lesser trochanteric fragment which remains unfixed.
--- NOTE | ~2023-02-04 | CT_ITS ---
EXAMINATION: CT brain wo con DATE: 02/04/2023 15:40 INDICATION: Syncope. TECHNIQUE: Computed tomography (CT) of the head was performed without intravenous contrast. The mA wa s adjusted according to patient size. Iterative reconstruction technique was employed. The dose-lengt h product was 681.00 mGy-cm. COMPARISON: Head CT 04/16/2022 FINDINGS: There are old infarcts in the cerebellum bilaterally. There is an old infarct in right jyothi etal lobe. There is no intracranial hemorrhage, acute infarction, or abnormal intracranial mass lesio n. There are scattered areas of low attenuation in the cerebral white matter, which is within normal limits for the patient's age. There is ex vacuo dilatation of right lateral ventricle. There are like ly changes of right ocular lens replacement surgery. There is mild mucosal thickening in the paranasa l sinuses. The mastoid air cells are normal. IMPRESSION: 1. 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 Reviewed, dictated and finalized at location E. GEMENT LEAD
--- NOTE | ~2023-02-04 | XR_ITS ---
EXAMINATION: XR hip RT min 2V DATE: 02/04/2023 15:26 INDICATION: Right hip pain, initial encounter TECHNIQUE: Two views of right hip were obtained. COMPARISON: None. FINDINGS: There is an acute, traumatic, comminuted intertrochanteric fracture of the right femoral ne ck. The lesser trochanter exists as a separate fracture fragment. The femoral head is well-seated in the acetabulum. No additional fracture is identified. Calcified atherosclerosis is noted. IMPRESSION: 1. Comminuted intertrochanteric fracture of the right femoral neck. Reviewed, dictated and finalized at location L. CTOR OF SPECIAL EVENTS
--- NOTE | ~2023-02-04 | CT_ITS ---
EXAMINATION: CT cervical spine wo con DATE: 02/04/2023 15:40 INDICATION: Neck injury. Syncope. TECHNIQUE: Computed tomography (CT) of the cervical spine was performed without intravenous contrast. Automated exposure control and iterative reconstruction technique were employed. The dose-length pro duct was 325.78 mGy-cm. COMPARISON: CT cervical spine 06/29/2021 FINDINGS: Bone alignment is normal. There is mild chronic anterior wedging of T1 and T2 vertebral bod ies. There is mildly decreased disc height at C2-C3 and C3-C4 and severely decreased disc height from C4-5 through C6-C7. The following disc levels are specifically discussed: C2-C3: There is ankylosis of the uncovertebral joints with mild hypertrophy. There is ankylosis of th e facet joints with mild hypertrophy. There is no neural foraminal stenosis. There is no central ana laura l stenosis. C3-C4: There is mild right and severe left uncovertebral joint osteoarthritis. There is severe bilate ral facet joint osteoarthritis. There is mild bilateral neural foraminal stenosis. There is mild cent ral canal stenosis. C4-C5: There is severe right and mild left uncovertebral joint osteoarthritis. There is severe bilate ral facet joint osteoarthritis. There is mild bilateral neural foraminal stenosis. There is mild cent ral canal stenosis. C5-C6: There is severe bilateral uncovertebral joint osteoarthritis. There is moderate right and mild left facet joint osteoarthritis. There is mild bilateral neural foraminal stenosis. There is mild ce ntral canal stenosis. C6-C7: There is severe bilateral uncovertebral joint osteoarthritis. There is mild bilateral facet malik int osteoarthritis. There is mild bilateral neural foraminal stenosis. There is mild central canal st enosis. C7-T1: There is no uncovertebral joint osteoarthritis. There is severe right and moderate left facet joint osteoarthritis. There is no neural foraminal stenosis. There is no central canal stenosis. IMPRESSION: 1. No fracture. 2. Severe cervical spondylosis. Reviewed, dictated and finalized at location E. E MAKER
--- NOTE | ~2023-02-04 | XR_ITS ---
EXAMINATION: XR chest 1V portable INDICATION: Weakness, fall TECHNIQUE: Portable AP chest at 1527 hours COMPARISON: 01/25/2022 FINDINGS: The lungs are free of acute opacities. No pleural effusion or pneumothorax. Coronary artery stents are noted. The heart size is normal. Surgical clips in the right upper quadrant are likely fr om prior cholecystectomy. IMPRESSION: 1. No acute cardiopulmonary abnormality. Reviewed, dictated and finalized at location L. COAT WIPER
--- NOTE | ~2023-02-04 | XR_ITS ---
EXAMINATION: XR barium swallow modified DATE: 02/09/2023 11:31 INDICATION: Difficulty swallowing TECHNIQUE: The patient was given barium-containing material of multiple consistencies to swallow by naveen lopez speech pathologist while I performed fluoroscopy. Dose-area product was [id number] Gy-cm2. FINDINGS: Oral Stage: Within functional limits Pharyngeal Phase: Reduced laryngeal elevation, reduced tongue base retraction, reduced pharyngeal sq ueeze. Piriform sinus and vallecular residue. Aspiration with thin liquids. Cervical/Esophageal Stage: Within functional limits IMPRESSION: Modified esophagram findings as above. Please refer to the speech [facility]. Reviewed, dictated and finalized at Location A. Reviewed, dictated and finalized at location A. INE ENGINEER IMPRESSION: Modified esophagram findings as above. Please refer to the speech t herapy report for specific recommendations.
--- NOTE | ~2023-02-04 | CT_ITS ---
EXAMINATION: CTA chest PE protocol DATE: 02/04/2023 18:36 INDICATION: Syncope. TECHNIQUE: Computed tomography angiography (CTA) of the chest was performed with 100 mL Omnipaque-350 intravenous contrast timed to evaluate the pulmonary arteries. Coronal maximum intensity projection 3D-reconstructions were created by the technologist. Automated exposure control and iterative reconst ruction technique were employed. The dose-length product was 367.45 mGy-cm. COMPARISON: CT abdomen and pelvis 09/05/20 FINDINGS: The lungs demonstrate mild atelectasis. Calcified pulmonary nodules and calcified hilar and mediastinal lymph nodes are consistent with old granulomatous disease. No pleural effusion. The thyr oid is enlarged and extends into the mediastinum. There are macrocalcifications in the thyroid. There is a stent in the superior mesenteric artery. There are changes of cholecystectomy. There is a small sliding hiatal hernia. The heart size is normal. No pericardial effusion. There are coronary artery calcifications. There is no pulmonary embolus. There are bridging endplate osteophytes at multiple le vels in the spine, consistent with diffuse idiopathic skeletal hyperostosis (DISH). There is severe t horacic spondylosis. IMPRESSION: 1. No pulmonary embolus. Reviewed, dictated and finalized at location E. ANALYSIS LABORATORY ASSISTANT IMPRESSION: 1. No pulmonary embolus.
--- NOTE | 2023-02-04 15:09 | ECG_ITS ---
Measurements Intervals [place] Rate: 78 P: CT: 208 QRS: -62 QRSD: 116 T: 40 QT: 378 QTc: 431 Interpretive Statements SINUS RHYTHM WITH FIRST-DEGREE AV BLOCK INCOMPLETE RIGHT BUNDLE BRANCH BLOCK [90+ ms QRS DURATION, TERMINAL R IN V1/V2, 40+ ms S IN I/aVL/V4/V5/V6] LEFT ANTERIOR FASCICULAR BLOCK [QRS AXIS <= -45, QR IN I, RS IN II] ABNORMAL ECG COMPARED TO ECG 01/25/2022 13:00:56 LEFT ANTERIOR FASCICULAR BLOCK NOW PRESENT Electronically Signed On 02-05-2023 15:28:47 EGG SMELLER by Carlos Painter M.D.
--- NOTE | 2023-02-04 15:27 | ED.FALL ---
HPI - Fall General Chief Complaint: Fall Stated Complaint: hip pain post fall Time Seen by Provider: 02/04/23 15:06 History of Present Illness HPI Narrative: patient presents the emergency department after a fall at home. He had a syncopal episode. States he was sitting on the couch when he stood up he blacked out. Has severe right hip pain. Is unsure if he hit his head. Patient states he has been having small episodes of lightheadedness for the past few years. Has a cardiac history with stents placed. He is on Plavix. Spoke to his supervisory aide about the episodes the been monitoring him. Related Data Home Medications Medication Instructions Recorded Confirmed ascorbic acid (vitamin C) 500 mg 250 mg PO DAILY 06/29/21 01/31/23 tablet vit C 250 mg-vit E 90 mg-zinc 40 1 tablet PO BID 06/29/21 01/31/23 mg-copper 1 gz-nqiczs-qlbnsg capsule (PreserVision AREDS-2) vitamin B complex (B 1 tablet PO DAILY 06/29/21 01/31/23 Complex-Vitamin B12 tablet) atorvastatin 40 mg tablet mg 01/25/22 01/31/23 pantoprazole 40 mg tablet,delayed mg PO 01/25/22 01/31/23 release acetaminophen 500 mg capsule 1,000 mg PO .twice daily 04/16/22 01/31/23 cholecalciferol (vitamin D3) 125 125 mcg PO DAILY 04/16/22 01/31/23 mcg (5,000 unit) capsule coenzyme Q10 100 mg capsule 100 mg PO DAILY 04/16/22 01/31/23 gemfibrozil 600 mg tablet mg PO BID 04/16/22 01/31/23 levetiracetam 1,000 mg tablet mg PO BID 04/16/22 01/31/23 gnevulmp-no-aanqv 300 mcg-K 60 1 tablet PO DAILY 04/16/22 01/31/23 mcg-lycop 600 mcg-lutein 300 mcg tablet (Centrum Silver Men) omega 9-ppz-rxg-fish oil 1,200 mg cap PO DAILY 04/16/22 01/31/23 (144 mg-216 mg) capsule (Fish Oil) metoprolol succinate 50 mg 50 mg PO DAILY 07/26/22 01/31/23 tablet,extended release 24 hr Allergies Allergy/AdvReac Type Severity Reaction Status Date / Time No Known Allergies Allergy Verified 02/04/23 15:11 Review of Systems Review of Systems: Review of systems negative except for what is documented in the [facility] Past Medical History Medical History (Updated 02/04/23 @ 20:06 by Karen Rai MD) Atherosclerotic heart disease of [place] coronary artery with unspecified angina pectoris Cerebral atherosclerosis Chronic GERD Closed intertrochanteric fracture of right femur Epilepsy, unspecified, not intractable, without status epilepticus Essential (primary) hypertension Generalized anxiety disorder Glaucoma History of CVA (cerebrovascular accident) x4 without any residual Hyperlipidemia Hypertension Ischemic cardiomyopathy Nicotine dependence, chewing tobacco, with other nicotine-induced disorders Quit chewing tobacco in 2022 Nonspecific paroxysmal spell Proteinuria, unspecified Stenosis of other vascular prosthetic devices, implants and grafts, subsequent encounter Type 2 diabetes mellitus with other diabetic kidney complication Surgical History Surgical History History of bilateral knee replacement left 2010 right 2019 History of cataract extraction Hx of cholecystectomy 2000 Stented coronary artery x4 Family History Family History Father Cerebrovascular accident Sibling Breast cancer Sister Diabetes mellitus Kidney failure Social History Social History Social History: patient stated he quit smoking over 35 years ago. He had 5 children. And lives with his 2nd who is a durable power manager van for healthcare. 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 code status full code. Smoking packs per day: 1.5 Smoking cigarettes per day: 30.0 Years smoked: 10 Smoking pack-years: 15.00 Smoking status: Former smoker Tobacco type: cigarettes and cigars Second hand tobacco smoke exposure: Yes
--- NOTE | 2023-02-04 15:27 | PC.NURSE ---
pt to XRAY and CT via stretcher at this time
[2023-02-04 15:55] LABS: Basophils Absolute Auto 0.1 K/mm3 (0.0-0.1); Basophils Percent Auto 0.9 % (0.2-1.2); Eosinophils Absolute Auto 0.2 K/mm3 (0-0.3); Eosinophils Percent Auto 2.7 % (0-4.4); Hematocrit 35.6 % (42.0-52.0); Immature Granulocyte Absolute 0.05 K/mm3 (0.00-0.031); Immature Granulocyte Percent A 0.8 % (0-0.5); Lymphocytes Absolute Auto 0.78 K/mm3 (0.9-3.2); Lymphocytes Percent Auto 11.9 % (18.3-44.2); Mean Corpuscular HGB Conc 33.7 g/dl (32-36); Mean Corpuscular Volume 94.9 fl (80-100); Mean Platelet Volume 8.6 fl (7.4-10.4); Monocytes Absolute Auto 0.7 K/mm3 (0.1-0.6); Neutrophils Absolute Auto 4.9 K/mm3 (1.3-6.7); Neutrophils Percent Auto 73.7 % (45.5-73.1); Platelet Count Result 274 k/mm3 (150-375); Red Blood Count 3.75 M/mm3 (4.6-6.20); Red Cell Distribution Width 12.4 % (11.5-14.5); White Blood Count 6.6 K/mm3 (4.5-10.0)
[2023-02-04 16:03] LABS: Ethanol < 10 mg/dL (<10)
[2023-02-04 16:09] LABS: Alanine Aminotransferase 18 U/L (6-50); Albumin Level 3.8 g/dL (3.5-5.1); Alkaline Phosphatase 71 U/L (38-126); Anion Gap 9 mmol/L (8-16); Aspartate Amino Transferase 26 U/L (17-59); Bilirubin,Total 0.3 mg/dL (0.2-1.3); Blood Urea Nitrogen 11 mg/dL (9-20); Calcium 9.2 mg/dL (8.4-10.2); Carbon Dioxide 23 mmol/L (22-30); Chloride 96 mmol/L (98-107); Estimated CRCL calculation 71 ml/min; Estimated Glomerular Filt Rate > 60; Glucose 140 mg/dL (65-110); Magnesium 1.7 mg/dL (1.6-2.3); Phosphorus 2.8 mg/dL (2.5-4.5); Potassium 4.1 mmol/L (3.4-5.0); Sodium 128 mmol/L (137-145)
[2023-02-04 16:19] LABS: NT Pro B Type Natriuretic Pept 300 pg/mL (19.9-100); Troponin I < 0.012 ng/mL (0.000-0.034)
[2023-02-04 16:30] LABS: Appearance Urine Clear (Clear); Bacteria Urine None Seen /hpf; Bilirubin Urine Negative (Negative); Blood Urine Negative (Negative); Calcium Oxalate Crystals Urine Present /hpf; Color Urine Dark Yellow (Yellow); Glucose Urine UA Negative (Negative); Hyaline Casts Urine Present /lpf; Ketones Urine Trace mg/dL (Negative); Leukocyte Esterase Ur Trace LEU/UL (Negative); Need Manual Microscopic Reviewed; Nitrate Urine Negative (Negative); Protein Urine 2+ mg/dL (Negative); Specific Grav Ur 1.021 (1.001-1.035); Squamous Epithelial Cell Urine None seen /hpf (Few); pH Urine 5.5 (5.0-9.0)
[2023-02-04 16:32] LABS: Add Urine Microscopic? YES
--- NOTE | 2023-02-04 17:53 | PM.CNOR ---
Assessment and Plan Assessment and plan (1) Closed intertrochanteric fracture of right femur: Qualifiers: Encounter type: initial encounter Fracture alignment: displaced Qualified Code(s): S72.141A - Displaced intertrochanteric fracture of right femur, initial encounter for closed fracture Code(s): S72.141A - Displaced intertrochanteric fracture of right femur, initial encounter for closed fracture Status: Acute Assessment and Plan: New patient evaluation for chief complaint fall with right hip fracture. History, physical exam and radiographs reviewed with the patient. Extensive medical comorbidities including significant heart disease, diabetes. Discussed the condition, nature, etiology and course of natural history with the patient. Treatment options including surgical and nonoperative treatment were reviewed. Risks and benefits of each as well as alternatives reviewed. The patient's questions were answered. Conservative treatment ice, compression and elevation. Mechanical DVT prophylaxis for possible surgery. Patient desires operative treatment. Awaiting lab results/ stable. Plan Discussed nonoperative and operative treatment options with the patient. Risks and benefits of each as well as alternatives were reviewed. All of the patient's questions were answered. The risks of surgery reviewed including but not limited to: Neurovascular damage, wound complication, infection, blood clot, pulmonary embolus, stroke, myocardial infarction, and anesthetic risks up to and including . Continued pain and possible dysfunction were explained. Specific risks of the procedure including later recurrence of deformity. No guarantees were offered. If hardware used, discussed risk of failure/ breakage and possible need for removal. If complications occur, the patient understands the need for further treatment, possible further surgery. Patient verbalizes understanding and wishes to proceed. PLAN: Reduction with internal fixation right hip intertrochanteric fracture. History of Present Illness HPI Consult date: 02/05/23 Requesting physician: Karen Rai MD Consult reason: fracture ( Right hip) Chief complaint: Hip FX Narrative: 82-year-old with history of heart disease. Syncopal episode today at home when got up from the couch. Fall on the right side. Found to have right hip fracture. Admitted through the emergency room for further care. Complains of right hip pain. No prior problems with the hip. Previous independent ambulator. Review of Systems Review of Systems: All systems reviewed & are unremarkable except as noted in HPI and below Constitutional: Constitutional: Reports as per HPI and Reports no additional constitutional complaints Eyes: Eyes: Reports as per HPI and Reports no additional eye complaints ENT: Reports system reviewed and no additional complaints, except as documented and Reports as per HPI Cardiovascular: Cardiovascular: Reports as per HPI and Reports no additional cardiovascular complaints Respiratory: Respiratory: Reports as per HPI and Reports no additional respiratory complaints Gastrointestinal: Gastrointestinal: Reports as per HPI and Reports no additional gastrointestinal complaints Genitourinary: Genitourinary: Reports no additional male genitourinary complaints and Reports as per HPI Musculoskeletal: Musculoskeletal: Reports no additional musculoskeletal complaints and Reports as per HPI Integumentary/Breasts: Skin/Breast: Reports system reviewed and no additional complaints, except as docu and Reports as per HPI Neurologic: Reports system reviewed and no additional complaints, except as documented and Reports as per HPI Psychiatric: Psychiatric: Reports no additional psychiatric complaints and Reports as per HPI Endocrine: Endocrine: Reports no additional endocrine complaints and Reports as per HPI Hematologic/Lymphatic: Hematologic/Lymphatic: Reports
[2023-02-04 18:05] LABS: Influenza A QL RT-PCR Negative (Negative); Influenza B QL RT-PCR Negative (Negative); RSV RNA, RT-PCR Negative (Negative); SARS-CoV-2 RNA PCR Negative (Negative)
--- NOTE | 2023-02-04 18:34 | ECG_ITS ---
Measurements Intervals [place] Rate: 92 P: 82 VT: 232 QRS: -71 QRSD: 119 T: 52 QT: 363 QTc: 450 Interpretive Statements SINUS RHYTHM WITH FIRST DEGREE AV BLOCK BASELINE ARTIFACT PATTERN CONSISTENT WITH PULMONARY DISEASE INCOMPLETE RIGHT BUNDLE BRANCH BLOCK [90+ ms QRS DURATION, TERMINAL R IN V1/V2, 40+ ms S IN I/aVL/V4/V5/V6] LEFT ANTERIOR FASCICULAR BLOCK [QRS AXIS <= -45, QR IN I, RS IN II] ABNORMAL ECG COMPARED TO ECG 02/04/2023 15:12:42 NO SIGNIFICANT CHANGE Electronically Signed On 02-05-2023 15:34:10 DISTRICT MANAGER POSTAL SERVICE by Carlos Painter M.D.
[2023-02-04 19:16] LABS: Troponin I < 0.012 ng/mL (0.000-0.034)
--- NOTE | 2023-02-04 19:58 | PM.IMHP ---
H&P: HPI History of Present Illness Date/Time: 02/04/23 19:58 Chief Complaint: Syncope Narrative: This is an 82-year-old male with multiple medical problems, hypertriglyceridemia, ischemic cardiomyopathy, stroke, seizure, paroxysmal atrial fibrillation, GERD, tobacco dependence, type 2 diabetes mellitus. Patient presents to the emergency room after having syncopal episode found to have hip fracture EXAMINATION: XR hip RT min 2V DATE: 02/04/2023 15:26 INDICATION: Right hip pain, initial encounter TECHNIQUE: Two views of right hip were obtained. COMPARISON: None. FINDINGS: There is an acute, traumatic, comminuted intertrochanteric fracture of the right femoral neck. The lesser trochanter exists as a separate fracture fragment. The femoral head is well-seated in the acetabulum. No additional fracture is identified. Calcified atherosclerosis is noted. IMPRESSION: 1. Comminuted intertrochanteric fracture of the right femoral neck. EXAMINATION: CT brain wo con DATE: 02/04/2023 15:40 INDICATION: Syncope. TECHNIQUE: Computed tomography (CT) of the head was performed without intravenous contrast. The mA was adjusted according to patient size. Iterative reconstruction technique was employed. The dose-length product was 681.00 mGy-cm. COMPARISON: Head CT 04/16/2022 FINDINGS: There are old infarcts in the cerebellum bilaterally. There is an old infarct in right parietal lobe. There is no intracranial hemorrhage, acute infarction, or abnormal intracranial mass lesion. There are scattered areas of low attenuation in the cerebral white matter, which is within normal limits for the patient's age. There is ex vacuo dilatation of right lateral ventricle. There are likely changes of right ocular lens replacement surgery. There is mild mucosal thickening in the paranasal sinuses. The mastoid air cells are normal. IMPRESSION: 1. 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 EXAMINATION: CTA chest PE protocol DATE: 02/04/2023 18:36 INDICATION: Syncope. TECHNIQUE: Computed tomography angiography (CTA) of the chest was performed with 100 mL Omnipaque-350 intravenous contrast timed to evaluate the pulmonary arteries. Coronal maximum intensity projection 3D-reconstructions were created by the technologist. Automated exposure control and iterative reconstruction technique were employed. The dose-length product was 367.45 mGy-cm. COMPARISON: CT abdomen and pelvis 09/05/20 FINDINGS: The lungs demonstrate mild atelectasis. Calcified pulmonary nodules and calcified hilar and mediastinal lymph nodes are consistent with old granulomatous disease. No pleural effusion. The thyroid is enlarged and extends into the mediastinum. There are macrocalcifications in the thyroid. There is a stent in the superior mesenteric artery. There are changes of cholecystectomy. There is a small sliding hiatal hernia. The heart size is normal. No pericardial effusion. There are coronary artery calcifications. There is no pulmonary embolus. There are bridging endplate osteophytes at multiple levels in the spine, consistent with diffuse idiopathic skeletal hyperostosis (DISH). There is severe thoracic spondylosis. IMPRESSION: 1. No pulmonary embolus. Review of Systems Review of Systems: ROS unobtainable: Yes unobtainable due to mental status (confusion) [facility] Past Medical History Medical History (Updated 02/05/23 @ 03:30 by Pamela Posadas MD) Atherosclerotic heart disease of [place] coronary artery with unspecified angina pectoris Cerebral atherosclerosis Chronic GERD Closed intertrochanteric fracture of right femur Epilepsy, unspecified, not intractable, without status epilepticus Essential (primary) hypertension Generalized anxiety disorder Glaucoma History of CVA (cerebrovascular accident) x4 without any residual Hyperlipidemia Hypertension Ischemic cardiomyopathy Nicotine dependence, chewing tobacco, with other nicotine-induced disorder
[2023-02-04] MEDS: MORPHINE SULFATE (*CRX) 4 MG/ML INJ IV PUSH (21:06)
--- NOTE | 2023-02-04 22:20 | PC.NURSE ---
Pt's O2 sats decreased to 88% while sleeping post-morphine. 2L placed on pt for support. Now 94%
--- NOTE | 2023-02-04 23:26 | PC.NURSE ---
BP readings lower after morphine. Noted that pt has on a adult long cuff which is too large. Cuff changed and BP more appropriate.
[2023-02-05] VITALS (21 sets, daily range): BP systolic 115–155; BP diastolic 52–94; PULSE 64–113; RESP 10–21; TEMP 36.3–36.8; O2SAT 93–100; BMI 21.6
--- NOTE | 2023-02-05 07:30 | WPDANESEPPF ---
Anes - Initial Pre Proc Eval Procedure: Operation Date: 02/05/23 10:30 Proposed Procedures p Right Intertrochanteric Nail - Cal Singleton MD Date/Time: 02/05/23 07:30 Surgeon: Pamela Posadas MD Pre Op Diagnosis: Hip FX Patient Data Age: 82 Gender: M Height: 1.78 m Weight: 68.4 kg Last Vital Signs Temp 36.7 C 02/05/23 00:43 Pulse 78 02/05/23 04:00 Resp 20 02/05/23 00:43 BP 121/62 02/05/23 00:43 Pulse Ox 98 02/05/23 00:43 O2 Del Method Nasal Cannula 02/04/23 22:21 O2 Flow Rate 2 02/04/23 22:21 Allergies Allergy/AdvReac Type Severity Reaction Status Date / Time No Known Allergies Allergy Verified 02/04/23 15:11 Home Medications Medication Instructions Recorded Confirmed Type aspirin 81 mg tablet,delayed 81 mg PO QAM #30 tabs 12/09/20 02/05/23 Rx release ascorbic acid (vitamin C) 500 mg 250 mg PO DAILY 06/29/21 01/31/23 History tablet vit C 250 mg-vit E 90 mg-zinc 40 1 tablet PO BID 06/29/21 01/31/23 History mg-copper 1 im-kzdwbt-ktegbz capsule (PreserVision AREDS-2) vitamin B complex (B 1 tablet PO DAILY 06/29/21 01/31/23 History Complex-Vitamin B12 tablet) atorvastatin 40 mg tablet 40 mg PO DAILY 01/25/22 02/05/23 History acetaminophen 500 mg capsule 1,000 mg PO .twice daily 04/16/22 01/31/23 History cholecalciferol (vitamin D3) 125 125 mcg PO DAILY 04/16/22 01/31/23 History mcg (5,000 unit) capsule coenzyme Q10 100 mg capsule 100 mg PO DAILY 04/16/22 01/31/23 History gemfibrozil 600 mg tablet 600 mg PO BID 04/16/22 02/05/23 History levetiracetam 1,000 mg tablet 1,000 mg PO BID 04/16/22 02/05/23 History olpzuebm-hc-qdnhl 300 mcg-K 60 1 tablet PO DAILY 04/16/22 02/05/23 History mcg-lycop 600 mcg-lutein 300 mcg tablet ([place]) omega 1-iwc-xzg-fish oil 1,200 mg cap PO DAILY 04/16/22 01/31/23 History (144 mg-216 mg) capsule (Fish Oil) metoprolol succinate 50 mg 50 mg PO DAILY 07/26/22 02/05/23 History tablet,extended release 24 hr escitalopram oxalate 5 mg tablet 5 mg PO DAILY #90 tabs 09/05/22 02/05/23 Rx clopidogrel 75 mg tablet 75 mg PO DAILY #90 tabs 09/12/22 02/05/23 Rx isosorbide mononitrate 30 mg 30 mg PO DAILY 02/05/23 02/05/23 History tablet,extended release 24 hr pantoprazole 40 mg tablet,delayed 40 mg PO DAILY 02/05/23 02/05/23 History release Laboratory Tests 02/04/23 02/04/23 02/04/23 15:26 15:40 15:40 WBC 6.6 K/mm3 (4.5-10.0) RBC 3.75 L M/mm3 (4.6-6.20) Hgb 12.0 L g/dL (14.0-18.0) Hct 35.6 L % (42.0-52.0) MCV 94.9 fl (80-100) MCH 32.0 pg (26-34) MCHC 33.7 g/dl (32-36) RDW 12.4 % (11.5-14.5) Plt Count 274 k/mm3 (150-375) MPV 8.6 fl (7.4-10.4) Immature Gran % (Auto) 0.8 H % (0-0.5) Neut % (Auto) 73.7 H % (45.5-73.1) Lymph % (Auto) 11.9 L % (18.3-44.2) [place] % (Auto) 10.0 H % (2.6-8.5) Eos % (Auto) 2.7 % (0-4.4) Baso % (Auto) 0.9 % (0.2-1.2) Lymph # (Auto) 0.78 L K/mm3 (0.9-3.2) [place] # (Auto) 0.7 H K/mm3 (0.1-0.6) Eos # (Auto) 0.2 K/mm3 (0-0.3) Baso # (Auto) 0.1 K/mm3 (0.0-0.1) Abs Immat Gran (auto) 0.05 H K/mm3 (0.00-0.031) Absolute Neuts (auto) 4.9 K/mm3 (1.3-6.7) Absolute Nucleated RBC 0.0 K/mm3 (0.0-0.012) Nucleated RBC % 0.0 % (0.0-0.2) D-Dimer 2.70 H ug/mL (<0.48) Sodium 128 L mmol/L (137-145) Potassium 4.1 mmol/L (3.4-5.0) Chloride 96 L mmol/L (98-107) Carbon Dioxide 23 mmol/L (22-30) Anion Gap 9 mmol/L (8-16) BUN 11 mg/dL (9-20) Creatinine 0.70 mg/dL (0.7-1.3) Estim Creat Clear Calc 71 ml/min Estimated GFR > 60 (59 - ) Glucose 140 H mg/dL (65-110) Calcium 9.2 mg/dL
[2023-02-05 08:01] LABS: Amphetamine Screen Urine Negative (Negative); Barbiturate Screen Urine Negative (Negative); Benzodiazepines Screen Urine Negative (Negative); Cannabinoid Screen Urine Negative (Negative); Cocaine Screen Urine Negative (Negative); Methadone Screen Urine Negative (Negative); Opiate Screen Urine Negative (Negative); Phencyclidine Screen Urine Negative (Negative)
[2023-02-05 08:38] LABS: Hematocrit 33.7 % (42.0-52.0); Hemoglobin 11.4 g/dL (14.0-18.0); Mean Corpuscular HGB Conc 33.8 g/dl (32-36); Mean Corpuscular Hemoglobin 32.1 pg (26-34); Mean Corpuscular Volume 94.9 fl (80-100); Mean Platelet Volume 8.7 fl (7.4-10.4); Platelet Count Result 233 k/mm3 (150-375); Red Blood Count 3.55 M/mm3 (4.6-6.20); Red Cell Distribution Width 12.6 % (11.5-14.5); White Blood Count 9.4 K/mm3 (4.5-10.0)
[2023-02-05 08:48] LABS: Potassium 4.7 mmol/L (3.4-5.0)
[2023-02-05 08:50] LABS: INR 1.1; Prothrombin Time 14.4 Seconds (11.1-14.7)
[2023-02-05 08:51] LABS: Partial Thromboplastin Time 29.3 SECONDS (22.3-36.8)
[2023-02-05 09:00] LABS: Anion Gap 5 mmol/L (8-16); Blood Urea Nitrogen 14 mg/dL (9-20); Carbon Dioxide 26 mmol/L (22-30); Chloride 98 mmol/L (98-107); Estimated CRCL calculation 53 ml/min; Estimated Glomerular Filt Rate > 60; Glucose 120 mg/dL (65-110); Sodium 129 mmol/L (137-145)
--- NOTE | 2023-02-05 09:38 | PC.NURSE ---
Patient transported to OR.
[2023-02-05] MEDS: ACETAMINOPHEN 500 MG TABLET 1000 MG PO ×3 (09:49→21:16)
[2023-02-05] MEDS: TRANEXAMIC ACID 1,000MG/ISO100 1,000 MG/100 ML BAG 200 MG IVPB (09:54)
[2023-02-05] MEDS: SODIUM CHLORIDE 0.9% IV 1,000 ML 30 ML IV CONT ×2 (09:54→12:35)
--- NOTE | 2023-02-05 11:02 | WPDHPUPDATE1 ---
History and Physical Update Update Date/Time: 02/05/23 11:02 History and Physical has been reviewed, including an updated exam of the patient. There are NO changes in the patient's condition. Risks, benefits, and alternatives have been discussed and questions answered. Patient agrees to proceed with procedure.
[2023-02-05] MEDS: ceFAZolin 2 GM/D5W 50 ML 2 GM/50 ML BAG IVPB (11:07)
[2023-02-05] MEDS: BUPIVACAINE/EPINEPHRINE 0.5% 50 ML VIAL INFILTRATE (11:35)
--- NOTE | 2023-02-05 12:33 | P.OP_ITS ---
Procedure Note - Detailed Date of Procedure 02/05/23 Pre-op Diagnosis Hip FX Post-op Diagnosis Same Procedure Performed Trochanteric nail right hip Surgeon Cal Singleton MD Manager Utilization Management 1st marketing assistant Anesthesia General Indications 82-year-old fell and sustained right hip intertrochanteric fracture. Desires operative treatment. Description of Procedure After informed consent the operative extremity was marked in the preoperative holding area. Patient received intravenous antibiotics. The patient was taken to the operative room, placed in the supine position, general anesthesia induced by the anesthesia team, and was placed on a fracture table with longitudinal traction applied to the right leg. The non operative leg was extended out of the field. The hip fracture was reduced to near anatomic position and verified with image intensification. A time-out was performed confirming the patient, site of the surgery and plan. The right lower extremity was prepped and draped sterilely from the knee to the iliac crest region using a ChloraPrep skin solution. Incision was made just proximal to greater trochanter down to the subcutaneous tissues. Hemostasis controlled with electrocautery. Blunt dissection through the fascia to the tip of the greater trochanter. A starter awl was placed at the tip of the greater trochanter into the medullary canal of the femur. This was checked with image intensification and was in good position. Intramedullary guide thais positioned. A one-step hand reaming done proximally. Intramedullary canal was reamed with a 13.5 millimeter flexible reamer. Measuring was then performed off of the guide thais. Neck angle selected off of preoperative radiographs temp plating. 125 degree 12.5 X 390mm Nail opened on the back table and assembled. This was then inserted over the guide thais to the correct depth. Guide thais removed. Lag screw was then placed with a stab incision over the lateral femur using a 10 blade knife. Blunt dissection down to the lateral side of the bone. Soft tissue protectors placed. Guide pin placed in the center center position of the femoral head and measured. 95 millimeter x 10 millimeter lag screw placed to correct depth and verified with image intensification. Traction then released from the leg and compression of the fracture performed with the external compression device. Proximal locking performed. Distal locking of the nail Then performed. Image intensification used to assist in positioning the drill. Drill measure and appropriate size screw placed to lock the nail. Final image intensification confirm reduction of the fracture and placement of the hardware. Wounds then thoroughly irrigated with antibiotic solution. Fascia repaired with 0 Vicryl interrupted suture. Subcutaneous tissue repaired with 2 Vicryl in a procedure and skin repaired with 3-0 Monocryl subcuticular stitch and Steri-Strips. Sterile dressings applied. Patient then awoke from anesthesia, extubated taken to recovery room stable condition. All sponge, needle and instrument counts correct at the end the case. Implants Arthrex trochanteric nail 12.5 mm, 39 cm length, 125 degree extended length. 95 x 10 mm lag screw and 40 x 5 mm distal locking screw. Estimated Blood Loss 200 Drains No Packing No Pathology None sent Complications None Condition Stable Disposition PACU [facility] Billing Surgery - Charge Forward: Surgery Billing ([id number])
[2023-02-05] MEDS: SODIUM CHLORIDE 0.9% IV 1,000 ML 75 ML IV CONT (14:47)
--- NOTE | 2023-02-05 15:16 | PM.IMPN ---
Progress Note: A&P Assessment and Plan (1) Syncope: Qualifiers: Syncope type: unspecified Qualified Code(s): R55 - Syncope and collapse Code(s): R55 - Syncope and collapse Status: Acute Assessment and Plan: History of falls could be orthostatic as it happens when he arises from sitting position will order orthostatics while inpatient he is also on Keppra (2) Closed intertrochanteric fracture of right femur: Qualifiers: Encounter type: initial encounter Fracture alignment: displaced Qualified Code(s): S72.141A - Displaced intertrochanteric fracture of right femur, initial encounter for closed fracture Code(s): S72.141A - Displaced intertrochanteric fracture of right femur, initial encounter for closed fracture Status: Acute Assessment and Plan: ortho consulted and surgery this morning reduction with fixation of right hip confirmed with XR PT/OT ordered (3) Nonspecific paroxysmal spell: Code(s): R40.4 - Transient alteration of awareness Status: Acute Assessment and Plan: see above (4) Essential (primary) hypertension: Code(s): I10 - Essential (primary) hypertension Status: Chronic Assessment and Plan: continue home meds monitor (5) Type 2 diabetes mellitus with other diabetic kidney complication: Code(s): E11.29 - Type 2 diabetes mellitus with other diabetic kidney complication Status: Chronic Assessment and Plan: continue home regimen, accuchecks, hypoglycemic protocol (6) Chronic GERD: Code(s): K21.9 - Gastro-esophageal reflux disease without esophagitis Status: Chronic Assessment and Plan: continue Pantoprozole (7) Ischemic cardiomyopathy: Code(s): I25.5 - Ischemic cardiomyopathy Status: Chronic Assessment and Plan: stable Subjective Date/time seen: 02/05/23 15:16 Interval history: Patient has returned to his room from surgery. Ortho surgical notes reviewed, XR confirmed placement and fixation of right hip fracture. Patient is lying comfortably in bed. Denies pain, SOB or general discomfort. He is alert and oriented, is at bedside. She witnessed his fall which has happened before, likely orthostatic hypotension. Will evaluate while inpatient with orthostatics, likely tomorrow. Review of Systems Review of Systems: All systems reviewed & are unremarkable except as noted in HPI and below Exam Narrative: GENERAL: Well-appearing, fairly-nourished, and in no acute distress. HEAD: Normocephalic, atraumatic. EYES: PERRLA and EOMI. ENT: Nares clear, no rhinorrhea or epistaxis. Mucous membranes moist. NECK: Supple. LUNGS: Clear to auscultation. No respiratory distress. HEART: RRR. ABDOMEN: Soft, nontender, nondistended. BS present, but hypoactive EXTREMITIES: right hip pain and tenderness, decreased ROM. No edema. SKIN: Warm, dry, no rash. Dressing intact over surgical wound. NEURO: No focal deficits. Alert and oriented x3. PSYCH: Normal mood and affect. Objective Data Vital Signs Vital Signs: Vital Signs - 24 hr 02/04/23 15:44 02/04/23 15:45 02/04/23 15:46 Temperature Pulse Rate 81 84 82 Respiratory Rate 16 23 H 20 Blood Pressure 107/64 107/64 115/65 Pulse Oximetry 96 97 97 Oxygen Delivery Oxygen Flow Rate 02/04/23 17:16 02/04/23 17:17 02/04/23 17:30 Temperature Pulse Rate 94 95 92 Respiratory Rate 17 18 18 Blood Pressure 120/65 Pulse Oximetry 96 97 96 Oxygen Delivery Oxygen Flow Rate 02/04/23 20:07 02/04/23 18:48 02/04/23 19:07 Temperature Pulse Rate 96 93 96 Respiratory Rate 17 16 Blood Pressure 117/63 Pulse Oximetry 97 97 96 Oxygen Delivery Oxygen Flow Rate 02/04/23 19:15 02/04/23 22:15 02/04/23 22:16 Temperature Pulse Rate 97 91 92 Respiratory Rate 19 19 15 Blood Pressure 82/46 L Pulse Oximetry 95 89 L 90 Oxygen Delivery Oxygen Flow R
[2023-02-05] MEDS: levETIRAcetam 500 MG TABLET 1000 MG PO (16:47)
[2023-02-05] MEDS: METOPROLOL SUCCINATE EXT REL 50 MG TABCR PO (16:48)
[2023-02-05] MEDS: gemfibroziL 600 MG TABLET PO (17:21)
[2023-02-05] MEDS: ceFAZolin 1 GM/NS 50 ML 1 GM/50 ML BAG IVPB (18:44)
[2023-02-06] VITALS (14 sets, daily range): BP systolic 105–130; BP diastolic 53–71; PULSE 76–105; RESP 16–20; TEMP 36.5–37.3; O2SAT 95–99
[2023-02-06] MEDS: ceFAZolin 1 GM/NS 50 ML 1 GM/50 ML BAG IVPB ×2 (02:14→10:58)
[2023-02-06] MEDS: ACETAMINOPHEN 500 MG TABLET 1000 MG PO (05:07)
[2023-02-06 05:13] LABS: Basophils Absolute Auto 0.1 K/mm3 (0.0-0.1); Basophils Percent Auto 0.4 % (0.2-1.2); Eosinophils Percent Auto 0.1 % (0-4.4); Hemoglobin 9.9 g/dL (14.0-18.0); Immature Granulocyte Percent A 0.7 % (0-0.5); Lymphocytes Absolute Auto 0.76 K/mm3 (0.9-3.2); Lymphocytes Percent Auto 5.4 % (18.3-44.2); Mean Corpuscular Hemoglobin 32.1 pg (26-34); Mean Corpuscular Volume 97.4 fl (80-100); Mean Platelet Volume 8.9 fl (7.4-10.4); Monocytes Absolute Auto 1.2 K/mm3 (0.1-0.6); Monocytes Percent Auto 8.3 % (2.6-8.5); Neutrophils Percent Auto 85.1 % (45.5-73.1); Platelet Count Result 214 k/mm3 (150-375); Red Blood Count 3.08 M/mm3 (4.6-6.20); Red Cell Distribution Width 12.8 % (11.5-14.5); White Blood Count 14.1 K/mm3 (4.5-10.0)
[2023-02-06 05:22] LABS: Anion Gap 7 mmol/L (8-16); Blood Urea Nitrogen 17 mg/dL (9-20); Calcium 8.5 mg/dL (8.4-10.2); Carbon Dioxide 23 mmol/L (22-30); Chloride 100 mmol/L (98-107); Estimated CRCL calculation 59 ml/min; Estimated Glomerular Filt Rate > 60; Glucose 129 mg/dL (65-110); Potassium 4.2 mmol/L (3.4-5.0); Sodium 130 mmol/L (137-145)
--- NOTE | 2023-02-06 07:30 | WPDANESPN ---
Anes - Prog Note Post-Op Date/Time: 02/06/23 07:30 Cardiovascular status: normal Respiratory status: normal Airway patency: baseline Mental status: baseline Post-Op hydration status: normal Vital Signs: Last Vital Signs Temp 97.4 F L 02/06/23 03:30 Pulse 82 02/06/23 04:00 Resp 18 02/06/23 03:30 BP 134/94 H 02/06/23 03:30 Pulse Ox 96 02/06/23 03:30 O2 Del Method Room Air 02/05/23 20:00 O2 Flow Rate 2 02/05/23 13:35 Pain Score (VAS): 5-6 I/O: Intake & Output 02/05/23 02/05/23 02/06/23 15:59 23:59 07:59 Intake Total 818 952 300 Output Total 90 50 400 Balance 728 902 -100 Laboratory Tests 02/06/23 04:46 02/06/23 04:46 02/04/23 02/05/23 02/06/23 15:26 08:28 04:46 WBC 9.4 14.1 H RBC 3.55 L 3.08 L Hgb 11.4 L 9.9 L Hct 33.7 L 30.0 L MCV 94.9 97.4 MCH 32.1 32.1 MCHC 33.8 33.0 RDW 12.6 12.8 Plt Count 233 214 MPV 8.7 8.9 Immature Gran % (Auto) 0.7 H Neut % (Auto) 85.1 H Lymph % (Auto) 5.4 L [place] % (Auto) 8.3 Eos % (Auto) 0.1 Baso % (Auto) 0.4 Lymph # (Auto) 0.76 L [place] # (Auto) 1.2 H Eos # (Auto) 0.0 Baso # (Auto) 0.1 Abs Immat Gran (auto) 0.10 H Absolute Neuts (auto) 12.0 H Absolute Nucleated RBC 0.0 Nucleated RBC % 0.0 PT 14.4 INR 1.1 APTT 29.3 Sodium 129 L 130 L Potassium 4.7 4.2 Chloride 98 100 Carbon Dioxide 26 23 Anion Gap 5 L 7 L BUN 14 17 Creatinine 0.90 0.80 Estim Creat Clear Calc 53 59 Estimated GFR > 60 > 60 Glucose 120 H 129 H Calcium 9.0 8.5 Urine Opiates Screen Negative Urine Methadone Screen Negative Ur Barbiturates Screen Negative Ur Phencyclidine Scrn Negative Ur Amphetamine Screen Negative U Benzodiazepines Scrn Negative Urine Cocaine Screen Negative U Cannabinoids Screen Negative Microbiology 02/04/23 15:26 Urine Clean Catch Urine Culture - Final Post-procedural complaints: none Patient Feedback: Patient satisfied with anesthetic care.
[2023-02-06] MEDS: ASCORBIC ACID 250 MG TABLET PO (08:11)
[2023-02-06] MEDS: METOPROLOL SUCCINATE EXT REL 50 MG TABCR PO (08:11)
[2023-02-06] MEDS: CHOLECALCIFEROL 1,000 UNITS TABLET 2000 UNITS PO (08:11)
[2023-02-06] MEDS: levETIRAcetam 500 MG TABLET 1000 MG PO ×2 (08:11→17:33)
[2023-02-06] MEDS: ATORVASTATIN 40 MG TABLET PO (08:11)
[2023-02-06] MEDS: ASPIRIN 81 MG ENTERIC TABLET PO (08:11)
[2023-02-06] MEDS: ISOSORBIDE MONONITRATE 30 MG TAB.ER.24H PO (08:11)
[2023-02-06] MEDS: gemfibroziL 600 MG TABLET PO ×2 (08:11→17:34)
[2023-02-06] MEDS: ESCITALOPRAM OXALATE 5 MG TABLET PO (08:11)
[2023-02-06] MEDS: CLOPIDOGREL BISULFATE 75 MG TABLET PO (08:11)
[2023-02-06] MEDS: OMEGA 3 POLYUNSAT FATTY ACIDS 1 GM CAP PO (08:11)
[2023-02-06] MEDS: OPTI-GEN TAB 1 TABLET PO (08:11)
[2023-02-06] MEDS: PANTOPRAZOLE 40 MG TABLET PO (08:12)
--- NOTE | 2023-02-06 09:35 | PM.PNORT ---
Progress Note: A&P Assessment and Plan (1) Closed intertrochanteric fracture of right femur: Qualifiers: Encounter type: initial encounter Fracture alignment: displaced Qualified Code(s): S72.141A - Displaced intertrochanteric fracture of right femur, initial encounter for closed fracture Code(s): S72.141A - Displaced intertrochanteric fracture of right femur, initial encounter for closed fracture Status: Acute Assessment and Plan: POD #1 : Right Trochanteric nail hip Continue PT/OT. WBAT. Walker. HIGH FALL RISK. Continue pain control. Ice hip. Protect skin. DVT prophylaxis with resumed home regimen. SCDs. Incentive Spirometry Use reviewed. Monitor Dressing. Change daily beginning today. Bowel Regimen. Dispo: GURPREET pending progress with PT/OT and medical clearance. (2) Closed hip fracture: Qualifiers: Encounter type: sequela Laterality: right Qualified Code(s): S72.001S - Fracture of unspecified part of neck of right femur, sequela Code(s): S72.009A - Fracture of unspecified part of neck of unspecified femur, initial encounter for closed fracture Status: Acute Subjective Subjective Date/Time Seen: 02/06/23 09:35 Post Op day: 1 Interval history: POD #1: Trochanteric nail right hip Patient doing well. Sitting up in chair. Pain well controlled. No new concerns. Urinating without difficulty. Review of Systems Review of Systems: All systems reviewed & are unremarkable except as noted in HPI and below Constitutional: Constitutional: Denies chills, Denies fever(s), Denies headache(s), Denies lethargy and Reports weakness ENT: Denies headache(s) Cardiovascular: Cardiovascular: Denies chest pain, Denies diaphoresis, Denies lightheadedness, Denies palpitations, Denies dyspnea and Denies dyspnea on exertion Respiratory: Respiratory: Denies cough, Denies dyspnea and Denies dyspnea on exertion Gastrointestinal: Gastrointestinal: Denies constipation, Denies diarrhea, Denies nausea and Denies vomiting Genitourinary: Genitourinary: Denies dysuria, Reports urinary frequency and Denies urinary hesitancy Musculoskeletal: Musculoskeletal: Reports joint swelling (Right Hip ) and Reports limited range of motion (Right Hip due to recent surgery ) Neurologic: Denies headache(s) and Reports weakness Endocrine: Endocrine: Denies palpitations Exam Const: General: comfortable and no acute distress Resp: Effort & Inspection: normal respiratory effort Cardio: Rate: regular rate Rhythm: regular rhythm GI: Inspection: non-distended Skin: General skin exam: normal color Other: Incision right hip c/d/i. Surrounding tissue without redness/warmth. Mild swelling consistent with recent surgery. No drainage. Neuro: Cognition (Neuro): normal cognition Speech: normal speech Extrem: Right lower extremity: normal to inspection, normal capillary refill, hip/thigh Details: tenderness Location: of the hip (Thigh soft ) Location: laterally and anteriorly, swelling Location: at the hip, abnormal ROM (limited consistent with recent surgery ) Details: pain with active ROM during and pain with passive ROM during and other (Incision c/d/i. ); no deformity and no unusual warmth, knee Details: normal to inspection; no tenderness and no swelling, lower leg (Negative Nohemy's Sign ) Details: normal to inspection and no edema; no tenderness, ankle (+ankle dorsiflexion/plantarflexion) Details: normal to inspection and no edema; no tenderness, no swelling and no ecchymosis and foot Details: normal capillary refill, toes with normal ROM, vascular exam Details: dorsalis pedis pulse present and motor-sensory exam Details: light-touch normal; no tenderness Objective Data Vital Signs Vital Signs: Vital Signs - 24 hr 02/05/23 12:35 02/05/23 12:50 02/05/23 13:00 Temperature 36.4 C L Pulse Rate 72 82 Respiratory Rate 10 L 12 Blood Pressure 123/52 L 142/72 H Pulse Oximetry 100 100
[2023-02-06] MEDS: HYDROmorphone HCL INJ (*CRX) 1 MG/ML SYR IV PUSH (10:57)
[2023-02-06] MEDS: SODIUM CHLORIDE 0.9% IV 1,000 ML 75 ML IV CONT (10:57)
--- NOTE | 2023-02-06 15:43 | PM.IMPN ---
Progress Note: A&P Assessment and Plan (1) Syncope: Qualifiers: Syncope type: unspecified Qualified Code(s): R55 - Syncope and collapse Code(s): R55 - Syncope and collapse Status: Acute Assessment and Plan: History of falls orthostatic negative he is also on Keppra (2) Closed intertrochanteric fracture of right femur: Qualifiers: Encounter type: initial encounter Fracture alignment: displaced Qualified Code(s): S72.141A - Displaced intertrochanteric fracture of right femur, initial encounter for closed fracture Code(s): S72.141A - Displaced intertrochanteric fracture of right femur, initial encounter for closed fracture Status: Acute Assessment and Plan: ortho consulted and surgery POD #1 reduction with fixation of right hip confirmed with XR PT/OT ordered, would likely benefit from SNF at d/c (3) Nonspecific paroxysmal spell: Code(s): R40.4 - Transient alteration of awareness Status: Acute Assessment and Plan: see above (4) Essential (primary) hypertension: Code(s): I10 - Essential (primary) hypertension Status: Chronic Assessment and Plan: continue home meds monitor (5) Type 2 diabetes mellitus with other diabetic kidney complication: Code(s): E11.29 - Type 2 diabetes mellitus with other diabetic kidney complication Status: Chronic Assessment and Plan: continue home regimen, accuchecks, hypoglycemic protocol (6) Chronic GERD: Code(s): K21.9 - Gastro-esophageal reflux disease without esophagitis Status: Chronic Assessment and Plan: continue Pantoprozole (7) Ischemic cardiomyopathy: Code(s): I25.5 - Ischemic cardiomyopathy Status: Chronic Assessment and Plan: stable Subjective Date/time seen: 02/06/23 15:43 Interval history: Patient sitting up in chair. Reporting more pain this morning but had just worked with PT. No complaints. Will wait for PT/OT eval for d/c, but likely would benefit from placement at SNF. Review of Systems Review of Systems: All systems reviewed & are unremarkable except as noted in HPI and below Exam Narrative: GENERAL: Well-appearing, fairly-nourished, and in no acute distress. HEAD: Normocephalic, atraumatic. EYES: PERRLA and EOMI. ENT: Nares clear, no rhinorrhea or epistaxis. Mucous membranes moist. NECK: Supple. LUNGS: Clear to auscultation. No respiratory distress. HEART: RRR. ABDOMEN: Soft, nontender, nondistended. BS present, but hypoactive EXTREMITIES: right hip pain and tenderness, decreased ROM. No edema. SKIN: Warm, dry, no rash. Dressing intact over surgical wound. NEURO: No focal deficits. Alert and oriented x3. PSYCH: Normal mood and affect. Objective Data Vital Signs Vital Signs: Vital Signs - 24 hr 02/05/23 15:45 02/05/23 16:48 02/05/23 16:04 Temperature 97.6 F Pulse Rate 100 113 H 108 H Respiratory Rate 16 Blood Pressure 155/78 H Pulse Oximetry 94 Oxygen Delivery 02/05/23 18:46 02/05/23 20:00 02/05/23 20:00 Temperature Pulse Rate 104 H Respiratory Rate Blood Pressure Pulse Oximetry Oxygen Delivery Room Air Room Air 02/05/23 19:55 02/06/23 00:00 02/05/23 23:30 Temperature 97.5 F L 97.4 F L Pulse Rate 106 H 90 100 Respiratory Rate 16 18 Blood Pressure 115/60 134/94 H Pulse Oximetry 93 96 Oxygen Delivery 02/06/23 04:00 02/06/23 07:30 02/06/23 07:57 Temperature 98.9 F 97.7 F Pulse Rate 82 92 83 Respiratory Rate 20 16 Blood Pressure 130/57 L 124/66 Pulse Oximetry 98 96 Oxygen Delivery 02/06/23 08:11 02/06/23 08:48 02/06/23 10:27 Temperature Pulse Rate 80 Respiratory Rate Blood Pressure Pulse Oximetry Oxygen Delivery Room Air Room Air 02/06/23 08:00 02/06/23 12:00 02/06/23 11:30 Temperature 97.9 F Pulse Rate 92 77 77 Respiratory Rate 16 Blood Pressure 110/60 Pulse
[2023-02-07] VITALS (9 sets, daily range): BP systolic 106–133; BP diastolic 53–55; PULSE 76–109; RESP 14–16; TEMP 36.5–36.7; O2SAT 95–100
[2023-02-07 06:02] LABS: Basophils Percent Auto 0.3 % (0.2-1.2); Eosinophils Percent Auto 0.2 % (0-4.4); Hematocrit 24.7 % (42.0-52.0); Hemoglobin 8.4 g/dL (14.0-18.0); Immature Granulocyte Absolute 0.08 K/mm3 (0.00-0.031); Immature Granulocyte Percent A 0.8 % (0-0.5); Lymphocytes Absolute Auto 0.57 K/mm3 (0.9-3.2); Lymphocytes Percent Auto 5.5 % (18.3-44.2); Mean Corpuscular Hemoglobin 32.7 pg (26-34); Mean Corpuscular Volume 96.1 fl (80-100); Mean Platelet Volume 9.1 fl (7.4-10.4); Monocytes Absolute Auto 1.1 K/mm3 (0.1-0.6); Monocytes Percent Auto 10.2 % (2.6-8.5); Neutrophils Absolute Auto 8.6 K/mm3 (1.3-6.7); Platelet Count Result 183 k/mm3 (150-375); Red Blood Count 2.57 M/mm3 (4.6-6.20); Red Cell Distribution Width 12.7 % (11.5-14.5); White Blood Count 10.3 K/mm3 (4.5-10.0)
[2023-02-07 06:04] LABS: Anion Gap 3 mmol/L (8-16); Blood Urea Nitrogen 21 mg/dL (9-20); Calcium 8.5 mg/dL (8.4-10.2); Carbon Dioxide 25 mmol/L (22-30); Chloride 100 mmol/L (98-107); Estimated CRCL calculation 53 ml/min; Estimated Glomerular Filt Rate > 60; Glucose 110 mg/dL (65-110); Potassium 4.4 mmol/L (3.4-5.0); Sodium 128 mmol/L (137-145)
[2023-02-07] MEDS: HYDROmorphone HCL INJ (*CRX) 1 MG/ML SYR IV PUSH ×2 (08:39→17:32)
--- NOTE | 2023-02-07 10:11 | PM.PNORT ---
Progress Note: A&P Assessment and Plan (1) Closed intertrochanteric fracture of right femur: Qualifiers: Encounter type: subsequent encounter Fracture alignment: displaced Fracture healing: with routine healing Qualified Code(s): S72.141D - Displaced intertrochanteric fracture of right femur, subsequent encounter for closed fracture with routine healing Code(s): S72.141A - Displaced intertrochanteric fracture of right femur, initial encounter for closed fracture Status: Acute Assessment and Plan: POD #2 : Right Trochanteric nail hip Continue PT/OT. WBAT. Walker. HIGH FALL RISK. Continue pain control. Ice hip. Protect skin. DVT prophylaxis with resumed home regimen. SCDs. Incentive Spirometry Use reviewed. Dispo: GURPREET pending progress with PT/OT and medical clearance. (2) Anemia: Qualifiers: Other causes of anemia: acute posthemorrhagic Anemia type: other cause Qualified Code(s): D62 - Acute posthemorrhagic anemia Code(s): D64.9 - Anemia, unspecified Status: Acute Assessment and Plan: Post fx and surgery. Follow h/h (3) Hyponatremia: Code(s): E87.1 - Hypo-osmolality and hyponatremia Status: Acute Assessment and Plan: No improvement from preop. Subjective Subjective Date/Time Seen: 02/07/23 10:11 Post Op day: 2 Interval history: POD #2: Trochanteric nail right hip Patient doing well. Sitting up in chair. Pain well controlled. No new concerns. Urinating without difficulty. Exam Const: General: comfortable and no acute distress Resp: Effort & Inspection: normal respiratory effort Skin: General skin exam: normal color Other: Incision right hip c/d/i. Surrounding tissue without redness/warmth. Mild swelling consistent with recent surgery. No drainage. Neuro: Speech: normal speech Extrem: Right lower extremity: normal to inspection, normal capillary refill, hip/thigh Details: tenderness Location: of the hip (Thigh soft ) Location: laterally and anteriorly, swelling Location: at the hip, abnormal ROM (limited consistent with recent surgery ) Details: pain with active ROM during and pain with passive ROM during and other (Incision c/d/i. ); no deformity and no unusual warmth, knee Details: normal to inspection; no tenderness and no swelling, lower leg (Negative Nohemy's Sign ) Details: normal to inspection and no edema; no tenderness, ankle (+ankle dorsiflexion/plantarflexion) Details: normal to inspection and no edema; no tenderness, no swelling and no ecchymosis and foot Details: normal capillary refill, toes with normal ROM, vascular exam Details: dorsalis pedis pulse present and motor-sensory exam Details: light-touch normal; no tenderness Objective Data Vital Signs Vital Signs: Vital Signs - 24 hr 02/06/23 10:27 02/06/23 12:00 02/06/23 11:30 Temperature 97.9 F Pulse Rate 77 77 Respiratory Rate 16 Blood Pressure 110/60 Pulse Oximetry 99 Oxygen Delivery Room Air 02/06/23 14:35 02/06/23 14:38 02/06/23 15:30 Temperature 97.7 F Pulse Rate 76 Respiratory Rate 16 Blood Pressure 110/60 105/53 L 121/61 Pulse Oximetry 98 Oxygen Delivery 02/06/23 16:00 02/06/23 19:33 02/06/23 20:00 Temperature 99.1 F Pulse Rate 79 95 105 H Respiratory Rate 18 Blood Pressure 126/71 Pulse Oximetry 95 Oxygen Delivery 02/07/23 00:00 02/07/23 04:00 Temperature Pulse Rate 83 79 Respiratory Rate Blood Pressure Pulse Oximetry Oxygen Delivery Intake/Output Intake/Output: Intake & Output 02/04/23 02/05/23 02/06/23 02/07/23 23:59 23:59 23:59 23:59 Intake Total 1770 1270 Output Total 540 400 Balance 1230 870 Meds/Results Medications: Active Medications Generic Name Dose Route Start Last Admin Trade Name Gioq PRN Reason Stop Dose Admin Acetaminophen 1,000 mg 02/05/23 02:33 02/06/23 05:07 Acetaminophen 500 Mg Tablet PO 1,000 mg Q6H PRN A
[2023-02-07] MEDS: SODIUM CHLORIDE 0.9% IV 1,000 ML 75 ML IV CONT (13:55)
--- NOTE | 2023-02-07 15:02 | PCSTNOTE ---
Please refer to the Bedside Swallow Evaluation in the EMR. Please note, silent aspiration cannot be ruled out at bedside.
[2023-02-07] MEDS: OMEGA 3 POLYUNSAT FATTY ACIDS 1 GM CAP PO (15:11)
[2023-02-07] MEDS: OPTI-GEN TAB 1 TABLET PO (15:11)
[2023-02-07] MEDS: ASPIRIN 81 MG ENTERIC TABLET PO (15:11)
[2023-02-07] MEDS: ISOSORBIDE MONONITRATE 30 MG TAB.ER.24H PO (15:11)
[2023-02-07] MEDS: METOPROLOL SUCCINATE EXT REL 50 MG TABCR PO (15:11)
[2023-02-07] MEDS: ATORVASTATIN 40 MG TABLET PO (15:12)
[2023-02-07] MEDS: SODIUM CHLORIDE 500 MG TABLET PO (15:12)
[2023-02-07] MEDS: PANTOPRAZOLE 40 MG TABLET PO (15:12)
[2023-02-07] MEDS: CHOLECALCIFEROL 1,000 UNITS TABLET 2000 UNITS PO (15:12)
[2023-02-07] MEDS: ASCORBIC ACID 250 MG TABLET PO (15:12)
[2023-02-07] MEDS: ESCITALOPRAM OXALATE 5 MG TABLET PO (15:12)
--- NOTE | 2023-02-07 15:15 | PM.IMPN ---
Progress Note: A&P Assessment and Plan (1) Syncope: Qualifiers: Syncope type: unspecified Qualified Code(s): R55 - Syncope and collapse Code(s): R55 - Syncope and collapse Status: Acute Assessment and Plan: History of falls orthostatic negative he is also on Keppra PT/OT working with him and will d/c to SNF (2) Closed intertrochanteric fracture of right femur: Qualifiers: Encounter type: subsequent encounter Fracture alignment: displaced Fracture healing: with routine healing Qualified Code(s): S72.141D - Displaced intertrochanteric fracture of right femur, subsequent encounter for closed fracture with routine healing Code(s): S72.141A - Displaced intertrochanteric fracture of right femur, initial encounter for closed fracture Status: Acute Assessment and Plan: ortho consulted and surgery POD #2 reduction with fixation of right hip confirmed with XR PT/OT ordered, would likely benefit from SNF at d/c (3) Nonspecific paroxysmal spell: Code(s): R40.4 - Transient alteration of awareness Status: Acute Assessment and Plan: see above (4) Essential (primary) hypertension: Code(s): I10 - Essential (primary) hypertension Status: Chronic Assessment and Plan: continue home meds monitor (5) Type 2 diabetes mellitus with other diabetic kidney complication: Code(s): E11.29 - Type 2 diabetes mellitus with other diabetic kidney complication Status: Chronic Assessment and Plan: continue home regimen, accuchecks, hypoglycemic protocol (6) Chronic GERD: Code(s): K21.9 - Gastro-esophageal reflux disease without esophagitis Status: Chronic Assessment and Plan: continue Pantoprozole (7) Ischemic cardiomyopathy: Code(s): I25.5 - Ischemic cardiomyopathy Status: Chronic Assessment and Plan: stable Plan Plan for modified barium swallow tomorrow with Speech. Diet adjusted to mildly thick liquids and soft bites for dinner. Will plan for d/c tomorrow after completed if remains medically stable. Subjective Date/time seen: 02/07/23 15:15 Interval history: Patient sitting up in chair with no complaints. His pain is well controlled. No complaints. Will wait for PT/OT eval for d/c, but likely would benefit from placement at SNF. Review of Systems Review of Systems: All systems reviewed & are unremarkable except as noted in HPI and below Exam Narrative: GENERAL: Well-appearing, fairly-nourished, and in no acute distress. HEAD: Normocephalic, atraumatic. EYES: PERRLA and EOMI. ENT: Nares clear, no rhinorrhea or epistaxis. Mucous membranes moist. NECK: Supple. LUNGS: Clear to auscultation. No respiratory distress. HEART: RRR. ABDOMEN: Soft, nontender, nondistended. BS present, but hypoactive EXTREMITIES: right hip pain and tenderness, decreased ROM. No edema. SKIN: Warm, dry, no rash. Dressing intact over surgical wound. NEURO: No focal deficits. Alert and oriented x3. PSYCH: Normal mood and affect. Objective Data Vital Signs Vital Signs: Vital Signs - 24 hr 02/06/23 15:30 02/06/23 16:00 02/06/23 19:33 Temperature 97.7 F 99.1 F Pulse Rate 76 79 95 Respiratory Rate 16 18 Blood Pressure 121/61 126/71 Pulse Oximetry 98 95 02/06/23 20:00 02/07/23 00:00 02/07/23 04:00 Temperature Pulse Rate 105 H 83 79 Respiratory Rate Blood Pressure Pulse Oximetry 02/07/23 08:00 02/07/23 14:56 02/07/23 15:11 Temperature 98.1 F Pulse Rate 109 H 92 90 Respiratory Rate 16 Blood Pressure 133/55 L Pulse Oximetry 100 Intake/Output Intake/Output: Intake & Output 02/04/23 02/05/23 02/06/23 02/07/23 23:59 23:59 23:59 23:59 Intake Total 1770 1270 1000 Output Total 540 400 Balance 5256 900 4621 Meds/Results Medications: Active Medications Generic Name Dose Route Start Last Admin Trade Name Freq MD
[2023-02-07] MEDS: CLOPIDOGREL BISULFATE 75 MG TABLET PO (15:31)
[2023-02-07] MEDS: levETIRAcetam 500 MG TABLET 1000 MG PO (17:06)
[2023-02-07] MEDS: gemfibroziL 600 MG TABLET PO (17:06)
[2023-02-07 18:03] LABS: Glucose Point of Care 142 mg/dl (65-105)
[2023-02-08] VITALS (11 sets, daily range): BP systolic 128–147; BP diastolic 61–76; PULSE 64–88; RESP 13–16; TEMP 36–37.1; O2SAT 98–99
[2023-02-08] MEDS: SODIUM CHLORIDE 0.9% IV 1,000 ML 75 ML IV CONT (04:25)
[2023-02-08 05:49] LABS: Basophils Percent Auto 0.4 % (0.2-1.2); Eosinophils Absolute Auto 0.1 K/mm3 (0-0.3); Eosinophils Percent Auto 1.2 % (0-4.4); Hematocrit 23.2 % (42.0-52.0); Hemoglobin 7.7 g/dL (14.0-18.0); Immature Granulocyte Absolute 0.08 K/mm3 (0.00-0.031); Lymphocytes Absolute Auto 0.51 K/mm3 (0.9-3.2); Lymphocytes Percent Auto 6.3 % (18.3-44.2); Mean Corpuscular HGB Conc 33.2 g/dl (32-36); Mean Corpuscular Hemoglobin 31.7 pg (26-34); Mean Corpuscular Volume 95.5 fl (80-100); Mean Platelet Volume 9.2 fl (7.4-10.4); Monocytes Absolute Auto 0.9 K/mm3 (0.1-0.6); Monocytes Percent Auto 11.5 % (2.6-8.5); Neutrophils Absolute Auto 6.5 K/mm3 (1.3-6.7); Neutrophils Percent Auto 79.6 % (45.5-73.1); Platelet Count Result 195 k/mm3 (150-375); Red Blood Count 2.43 M/mm3 (4.6-6.20); Red Cell Distribution Width 12.6 % (11.5-14.5); White Blood Count 8.1 K/mm3 (4.5-10.0)
[2023-02-08 06:01] LABS: Anion Gap 4 mmol/L (8-16); Blood Urea Nitrogen 21 mg/dL (9-20); Calcium 8.3 mg/dL (8.4-10.2); Carbon Dioxide 23 mmol/L (22-30); Chloride 102 mmol/L (98-107); Estimated CRCL calculation 77 ml/min; Estimated Glomerular Filt Rate > 60; Glucose 104 mg/dL (65-110); Potassium 4.3 mmol/L (3.4-5.0); Sodium 129 mmol/L (137-145)
[2023-02-08 09:59] LABS: Iron 16 ug/dL (49-181)
[2023-02-08 10:11] LABS: Percent Iron Saturation 9 % (20-50)
--- NOTE | 2023-02-08 12:50 | PCSTNOTE ---
Patient was seen in radiology suite for modified barium swallow study. Radiologist was unavailable due to attending to ER patients. Waited 45 minutes with patient in chair and set up for MBSS, and patient requested to use urinal. When asked he stated he'd prefer to go back to his room and have the MBSS tomorrow. Physician and nurse informed.
[2023-02-08] MEDS: IRON SUCROSE COMPLEX 500 MG in SODIUM CHLORIDE 0.9% IV 250 ML 78.57 MG IVPB (13:11)
[2023-02-08] MEDS: ISOSORBIDE MONONITRATE 30 MG TAB.ER.24H PO (13:18)
[2023-02-08] MEDS: ASCORBIC ACID 250 MG TABLET PO (13:18)
[2023-02-08] MEDS: METOPROLOL SUCCINATE EXT REL 50 MG TABCR PO (13:19)
[2023-02-08] MEDS: ASPIRIN 81 MG ENTERIC TABLET PO (13:19)
[2023-02-08] MEDS: CHOLECALCIFEROL 1,000 UNITS TABLET 2000 UNITS PO (13:19)
[2023-02-08] MEDS: levETIRAcetam 500 MG TABLET 1000 MG PO ×2 (13:19→16:54)
[2023-02-08] MEDS: ATORVASTATIN 40 MG TABLET PO (13:19)
[2023-02-08] MEDS: CLOPIDOGREL BISULFATE 75 MG TABLET PO (13:19)
[2023-02-08] MEDS: ESCITALOPRAM OXALATE 5 MG TABLET PO (13:19)
[2023-02-08] MEDS: PANTOPRAZOLE 40 MG TABLET PO (13:19)
[2023-02-08] MEDS: OPTI-GEN TAB 1 TABLET PO ×2 (13:20)
[2023-02-08] MEDS: gemfibroziL 600 MG TABLET PO ×2 (13:20→16:54)
--- NOTE | 2023-02-08 14:44 | PM.IMPN ---
Progress Note: A&P Assessment and Plan (1) Syncope: Qualifiers: Syncope type: unspecified Qualified Code(s): R55 - Syncope and collapse Code(s): R55 - Syncope and collapse Status: Acute Assessment and Plan: History of falls orthostatic negative he is also on Keppra PT/OT working with him and will d/c to SNF (2) Closed intertrochanteric fracture of right femur: Qualifiers: Encounter type: subsequent encounter Fracture alignment: displaced Fracture healing: with routine healing Qualified Code(s): S72.141D - Displaced intertrochanteric fracture of right femur, subsequent encounter for closed fracture with routine healing Code(s): S72.141A - Displaced intertrochanteric fracture of right femur, initial encounter for closed fracture Status: Acute Assessment and Plan: ortho consulted and surgery POD #2 reduction with fixation of right hip confirmed with XR PT/OT ordered, would likely benefit from SNF at d/c (3) Nonspecific paroxysmal spell: Code(s): R40.4 - Transient alteration of awareness Status: Acute Assessment and Plan: see above (4) Essential (primary) hypertension: Code(s): I10 - Essential (primary) hypertension Status: Chronic Assessment and Plan: continue home meds monitor (5) Type 2 diabetes mellitus with other diabetic kidney complication: Code(s): E11.29 - Type 2 diabetes mellitus with other diabetic kidney complication Status: Chronic Assessment and Plan: continue home regimen, accuchecks, hypoglycemic protocol (6) Chronic GERD: Code(s): K21.9 - Gastro-esophageal reflux disease without esophagitis Status: Chronic Assessment and Plan: continue Pantoprozole (7) Ischemic cardiomyopathy: Code(s): I25.5 - Ischemic cardiomyopathy Status: Chronic Assessment and Plan: stable (8) Anemia: Qualifiers: Anemia type: other cause Other causes of anemia: acute posthemorrhagic Qualified Code(s): D62 - Acute posthemorrhagic anemia Code(s): D64.9 - Anemia, unspecified Status: Acute Assessment and Plan: iron panel: iron 16 TIBC 176 % sat 9 ferritin 190 H&H continues to drop with no obvious signs of bleeding; 7.7/23.2 today IV venofer given today Plan Plan for modified barium swallow tomorrow with Speech. Will plan for d/c tomorrow after completed if remains medically stable. Subjective Date/time seen: 02/08/23 14:44 Interval history: Patient laying in bed, at bedside. He is feeling a little sore, but no complaints or distress. H&H dropped today, no obvious signs of bleeding. Iron panel ordered and will give IV venofer today and recheck in am. Plan to d/c to [facility] for continued rehab when stable. Modified barium swallow now to be done tomorrow. Review of Systems Review of Systems: All systems reviewed & are unremarkable except as noted in HPI and below Exam Narrative: GENERAL: Well-appearing, fairly-nourished, and in no acute distress. HEAD: Normocephalic, atraumatic. EYES: PERRLA and EOMI. ENT: Nares clear, no rhinorrhea or epistaxis. Mucous membranes moist. NECK: Supple. LUNGS: Clear to auscultation. No respiratory distress. HEART: RRR. ABDOMEN: Soft, nontender, nondistended. BS present, but hypoactive EXTREMITIES: right hip pain and tenderness, decreased ROM. No edema. SKIN: Warm, dry, no rash. Dressing intact over surgical wound. NEURO: No focal deficits. Alert and oriented x3. PSYCH: Normal mood and affect. Objective Data Vital Signs Vital Signs: Vital Signs - 24 hr 02/07/23 14:56 02/07/23 15:11 02/07/23 16:00 Temperature 98.1 F Pulse Rate 92 90 88 Respiratory Rate 16 Blood Pressure 133/55 L Pulse Oximetry 100 Oxygen Delivery 02/07/23 19:38 02/07/23 20:00 02/08/23 00:00 Temperature 97.7 F Pulse Rate 82 76 80 Respiratory Rate 14 Blood Pr
[2023-02-08] MEDS: SODIUM CHLORIDE 0.9% IV 1,000 ML 100 ML IV CONT (17:06)
[2023-02-09] VITALS (21 sets, daily range): BP systolic 120–142; BP diastolic 58–79; PULSE 72–100; RESP 16–20; TEMP 36.4–37.2; O2SAT 97–100
[2023-02-09] MEDS: SODIUM CHLORIDE 0.9% IV 1,000 ML 100 ML IV CONT ×2 (03:17→21:20)
[2023-02-09 05:45] LABS: Hematocrit 21.6 % (42.0-52.0); Mean Corpuscular HGB Conc 32.4 g/dl (32-36); Mean Corpuscular Hemoglobin 31.5 pg (26-34); Mean Corpuscular Volume 97.3 fl (80-100); Platelet Count Result 207 k/mm3 (150-375); Red Blood Count 2.22 M/mm3 (4.6-6.20); Red Cell Distribution Width 12.8 % (11.5-14.5); White Blood Count 7.2 K/mm3 (4.5-10.0)
[2023-02-09 06:06] LABS: Anion Gap 5 mmol/L (8-16); Blood Urea Nitrogen 13 mg/dL (9-20); Calcium 8.2 mg/dL (8.4-10.2); Carbon Dioxide 22 mmol/L (22-30); Chloride 105 mmol/L (98-107); Estimated CRCL calculation 77 ml/min; Estimated Glomerular Filt Rate > 60; Glucose 77 mg/dL (65-110); Sodium 132 mmol/L (137-145)
[2023-02-09] MEDS: ESCITALOPRAM OXALATE 5 MG TABLET PO (10:20)
[2023-02-09] MEDS: traMADol HCL (*CRX) 50 MG TABLET PO (10:20)
[2023-02-09] MEDS: CLOPIDOGREL BISULFATE 75 MG TABLET PO (10:21)
[2023-02-09] MEDS: levETIRAcetam 500 MG TABLET 1000 MG PO ×2 (10:21→18:31)
[2023-02-09] MEDS: CHOLECALCIFEROL 1,000 UNITS TABLET 2000 UNITS PO (10:22)
[2023-02-09] MEDS: OPTI-GEN TAB 1 TABLET PO (10:22)
[2023-02-09] MEDS: ATORVASTATIN 40 MG TABLET PO (10:22)
[2023-02-09] MEDS: ASCORBIC ACID 250 MG TABLET PO (10:22)
[2023-02-09] MEDS: gemfibroziL 600 MG TABLET PO ×2 (10:22→18:31)
[2023-02-09] MEDS: ENOXAPARIN 40 MG/0.4 ML SYRINGE SUB-Q (10:23)
[2023-02-09] MEDS: ISOSORBIDE MONONITRATE 30 MG TAB.ER.24H PO (10:23)
[2023-02-09] MEDS: METOPROLOL SUCCINATE EXT REL 50 MG TABCR PO (10:23)
[2023-02-09] MEDS: PANTOPRAZOLE 40 MG TABLET PO (10:23)
--- NOTE | 2023-02-09 12:06 | PCSTNOTE ---
Modified barium swallow study completed. Patient seen in radiology suite positioned upright in chair. Trials of thin, mildly thickened, pureed, mixed, solid, and pill consistencies were presented. Aspiration occurred with uncontrolled thin liquids by cup. No aspiration with other consistencies. Patient was unable to swallow pill due to decreased A-P tongue movement. These compensatory strategies were successful for patient: chin tuck, small bite size, multiple swallows. Recommendations: soft and bite sized diet (level 6), mildly thickened liquids (level 2). Safe swallowing precautions are placed in chart. No further speech therapy is recommended at this time. Thank you for the referral of this patient.
[2023-02-09] MEDS: SODIUM CHLORIDE 0.9% IV 250 ML 30 ML IV CONT (14:46)
--- NOTE | 2023-02-09 15:43 | PM.IMPN ---
Progress Note: A&P Assessment and Plan (1) Syncope: Qualifiers: Syncope type: unspecified Qualified Code(s): R55 - Syncope and collapse Code(s): R55 - Syncope and collapse Status: Acute Assessment and Plan: History of falls orthostatic negative he is also on Keppra PT/OT working with him and will d/c to SNF (2) Closed intertrochanteric fracture of right femur: Qualifiers: Encounter type: subsequent encounter Fracture alignment: displaced Fracture healing: with routine healing Qualified Code(s): S72.141D - Displaced intertrochanteric fracture of right femur, subsequent encounter for closed fracture with routine healing Code(s): S72.141A - Displaced intertrochanteric fracture of right femur, initial encounter for closed fracture Status: Acute Assessment and Plan: ortho consulted and surgery POD #2 reduction with fixation of right hip confirmed with XR PT/OT ordered, would likely benefit from SNF at d/c (3) Nonspecific paroxysmal spell: Code(s): R40.4 - Transient alteration of awareness Status: Acute Assessment and Plan: see above (4) Essential (primary) hypertension: Code(s): I10 - Essential (primary) hypertension Status: Chronic Assessment and Plan: continue home meds monitor (5) Type 2 diabetes mellitus with other diabetic kidney complication: Code(s): E11.29 - Type 2 diabetes mellitus with other diabetic kidney complication Status: Chronic Assessment and Plan: continue home regimen, accuchecks, hypoglycemic protocol (6) Chronic GERD: Code(s): K21.9 - Gastro-esophageal reflux disease without esophagitis Status: Chronic Assessment and Plan: continue Pantoprozole (7) Ischemic cardiomyopathy: Code(s): I25.5 - Ischemic cardiomyopathy Status: Chronic Assessment and Plan: stable (8) Anemia: Qualifiers: Anemia type: other cause Other causes of anemia: acute posthemorrhagic Qualified Code(s): D62 - Acute posthemorrhagic anemia Code(s): D64.9 - Anemia, unspecified Status: Acute Assessment and Plan: iron panel: iron 16 TIBC 176 % sat 9 ferritin 190 H&H continues to drop with no obvious signs of bleeding; 7.0/21.6 today 2 units PRBC given today s/p IV venofer Plan Will plan for d/c Friday. Subjective Date/time seen: 02/09/23 15:43 Interval history: Patient sitting up in his chair. no complaints or distress. H&H continues to trend down, no obvious signs of bleeding. 2 units of PRBC ordered and will recheck in am. Hold anticoagulation today. Plan to d/c to [facility] for continued rehab when stable. Modified barium swallow done today and diet consistency updated per recommendations. Review of Systems Review of Systems: All systems reviewed & are unremarkable except as noted in HPI and below Exam Narrative: GENERAL: Well-appearing, fairly-nourished, and in no acute distress. HEAD: Normocephalic, atraumatic. EYES: PERRLA and EOMI. ENT: Nares clear, no rhinorrhea or epistaxis. Mucous membranes moist. NECK: Supple. LUNGS: Clear to auscultation. No respiratory distress. HEART: RRR. ABDOMEN: Soft, nontender, nondistended. BS present, but hypoactive EXTREMITIES: right hip pain and tenderness, decreased ROM. No edema. SKIN: Warm, dry, no rash. Dressing intact over surgical wound. NEURO: No focal deficits. Alert and oriented x3. PSYCH: Normal mood and affect. Objective Data Vital Signs Vital Signs: Vital Signs - 24 hr 02/08/23 16:00 02/08/23 19:51 02/08/23 20:00 Temperature 96.8 F L Pulse Rate 64 82 77 Respiratory Rate 16 Blood Pressure 128/61 Pulse Oximetry 98 Oxygen Delivery 02/08/23 20:00 02/09/23 00:00 02/09/23 04:00 Temperature Pulse Rate 72 79 Respiratory Rate Blood Pressure Pulse Oximetry Oxygen Delivery Room Air 02/09/23 04:43 12
[2023-02-09] MEDS: ACETAMINOPHEN 500 MG TABLET 1000 MG PO (20:33)
[2023-02-09 22:22] LABS: Toxigenic C. Diff NEGATIVE (NEGATIVE)
[2023-02-10] VITALS (10 sets, daily range): BP systolic 105–153; BP diastolic 62–84; PULSE 64–105; RESP 16–20; TEMP 36.5–36.7; O2SAT 94–97
[2023-02-10] MEDS: SODIUM CHLORIDE 0.9% IV 1,000 ML 100 ML IV CONT ×2 (04:34→14:40)
[2023-02-10 05:41] LABS: Basophils Absolute Auto 0.1 K/mm3 (0.0-0.1); Basophils Percent Auto 0.7 % (0.2-1.2); Eosinophils Absolute Auto 0.3 K/mm3 (0-0.3); Eosinophils Percent Auto 3.4 % (0-4.4); Hematocrit 28.7 % (42.0-52.0); Hemoglobin 9.6 g/dL (14.0-18.0); Immature Granulocyte Absolute 0.17 K/mm3 (0.00-0.031); Immature Granulocyte Percent A 2.3 % (0-0.5); Lymphocytes Absolute Auto 0.54 K/mm3 (0.9-3.2); Lymphocytes Percent Auto 7.2 % (18.3-44.2); Mean Corpuscular HGB Conc 33.4 g/dl (32-36); Mean Corpuscular Hemoglobin 31.3 pg (26-34); Mean Corpuscular Volume 93.5 fl (80-100); Mean Platelet Volume 8.8 fl (7.4-10.4); Monocytes Absolute Auto 1.1 K/mm3 (0.1-0.6); Monocytes Percent Auto 14.7 % (2.6-8.5); Neutrophils Absolute Auto 5.4 K/mm3 (1.3-6.7); Neutrophils Percent Auto 71.7 % (45.5-73.1); Nucleated Red Blood Cells Perc 0.3 % (0.0-0.2); Platelet Count Result 234 k/mm3 (150-375); Red Blood Count 3.07 M/mm3 (4.6-6.20); Red Cell Distribution Width 14.3 % (11.5-14.5); White Blood Count 7.6 K/mm3 (4.5-10.0)
[2023-02-10 06:09] LABS: Anion Gap 7 mmol/L (8-16); Blood Urea Nitrogen 15 mg/dL (9-20); Calcium 8.3 mg/dL (8.4-10.2); Carbon Dioxide 22 mmol/L (22-30); Chloride 105 mmol/L (98-107); Estimated CRCL calculation 67 ml/min; Estimated Glomerular Filt Rate > 60; Glucose 120 mg/dL (65-110); Potassium 3.9 mmol/L (3.4-5.0); Sodium 134 mmol/L (137-145)
[2023-02-10] MEDS: traMADol HCL (*CRX) 50 MG TABLET PO ×2 (07:54→14:43)
[2023-02-10] MEDS: METOPROLOL SUCCINATE EXT REL 50 MG TABCR PO (08:29)
[2023-02-10] MEDS: ENOXAPARIN 40 MG/0.4 ML SYRINGE SUB-Q (08:29)
[2023-02-10] MEDS: ESCITALOPRAM OXALATE 5 MG TABLET PO (08:29)
[2023-02-10] MEDS: CHOLECALCIFEROL 1,000 UNITS TABLET 2000 UNITS PO (08:29)
[2023-02-10] MEDS: gemfibroziL 600 MG TABLET PO ×2 (08:29→16:53)
[2023-02-10] MEDS: PANTOPRAZOLE 40 MG TABLET PO (08:30)
[2023-02-10] MEDS: ASPIRIN 81 MG ENTERIC TABLET PO (08:30)
[2023-02-10] MEDS: ASCORBIC ACID 250 MG TABLET PO (08:30)
[2023-02-10] MEDS: CLOPIDOGREL BISULFATE 75 MG TABLET PO (08:30)
[2023-02-10] MEDS: OMEGA 3 POLYUNSAT FATTY ACIDS 1 GM CAP PO (08:30)
[2023-02-10] MEDS: levETIRAcetam 500 MG TABLET 1000 MG PO ×2 (08:30→16:53)
[2023-02-10] MEDS: OPTI-GEN TAB 1 TABLET PO (08:30)
[2023-02-10] MEDS: ATORVASTATIN 40 MG TABLET PO (08:30)
[2023-02-10] MEDS: ISOSORBIDE MONONITRATE 30 MG TAB.ER.24H PO (08:30)
--- NOTE | 2023-02-10 10:46 | PM.IMPN ---
Progress Note: A&P Assessment and Plan (1) Syncope: Qualifiers: Syncope type: unspecified Qualified Code(s): R55 - Syncope and collapse Code(s): R55 - Syncope and collapse Status: Acute Assessment and Plan: History of falls orthostatic negative he is also on Keppra PT/OT working with him and will d/c to SNF likely tomorrow due to holiday (2) Closed intertrochanteric fracture of right femur: Qualifiers: Encounter type: subsequent encounter Fracture alignment: displaced Fracture healing: with routine healing Qualified Code(s): S72.141D - Displaced intertrochanteric fracture of right femur, subsequent encounter for closed fracture with routine healing Code(s): S72.141A - Displaced intertrochanteric fracture of right femur, initial encounter for closed fracture Status: Acute Assessment and Plan: ortho consulted and surgery POD #2 reduction with fixation of right hip confirmed with XR PT/OT ordered, plan for SNF at d/c tomorrow due to holiday (3) Nonspecific paroxysmal spell: Code(s): R40.4 - Transient alteration of awareness Status: Acute Assessment and Plan: see above (4) Essential (primary) hypertension: Code(s): I10 - Essential (primary) hypertension Status: Chronic Assessment and Plan: continue home meds monitor (5) Type 2 diabetes mellitus with other diabetic kidney complication: Code(s): E11.29 - Type 2 diabetes mellitus with other diabetic kidney complication Status: Chronic Assessment and Plan: continue home regimen, accuchecks, hypoglycemic protocol (6) Chronic GERD: Code(s): K21.9 - Gastro-esophageal reflux disease without esophagitis Status: Chronic Assessment and Plan: continue Pantoprozole (7) Ischemic cardiomyopathy: Code(s): I25.5 - Ischemic cardiomyopathy Status: Chronic Assessment and Plan: stable (8) Anemia: Qualifiers: Anemia type: other cause Other causes of anemia: acute posthemorrhagic Qualified Code(s): D62 - Acute posthemorrhagic anemia Code(s): D64.9 - Anemia, unspecified Status: Acute Assessment and Plan: iron panel: iron 16 TIBC 176 % sat 9 ferritin 190 H&H rebounded at 9.6/28.7 post 2 units PRBC yesterday continue to monitor s/p IV venofer Plan Stool cultures pending post loose stool yesterday, C. diff negative Will plan for d/c Friday. Subjective Date/time seen: 02/10/23 10:46 Interval history: Patient laying in bed comfortably. no complaints or distress. H&H rebounded post 2 units of PRBC yesterday. He reports feeling a little better as well. Plan to d/c to [facility] for continued rehab when able, likely tomorrow due to the holiday. Review of Systems Review of Systems: All systems reviewed & are unremarkable except as noted in HPI and below Exam Narrative: GENERAL: Well-appearing, fairly-nourished, and in no acute distress. HEAD: Normocephalic, atraumatic. EYES: PERRLA and EOMI. ENT: Nares clear, no rhinorrhea or epistaxis. Mucous membranes moist. NECK: Supple. LUNGS: Clear to auscultation. No respiratory distress. HEART: RRR. ABDOMEN: Soft, nontender, nondistended. BS present, but hypoactive EXTREMITIES: right hip pain and tenderness, decreased ROM. No edema. SKIN: Warm, dry, no rash. Dressing intact over surgical wound. NEURO: No focal deficits. Alert and oriented x3. PSYCH: Normal mood and affect. Objective Data Vital Signs Vital Signs: Vital Signs - 24 hr 02/09/23 12:00 02/09/23 14:00 02/09/23 14:50 Temperature 97.8 F 98.3 F Pulse Rate 79 88 82 Respiratory Rate 20 20 Blood Pressure 120/63 122/58 L Pulse Oximetry 100 98 Oxygen Delivery 02/09/23 15:05 02/09/23 16:05 02/09/23 16:00 Temperature 98.3 F 98.1 F Pulse Rate 78 77 75 Respiratory Rate 20 20 Blood Pressure 126/62 123/63 Pulse Oximetry 100 99 Oxygen [employer]
[2023-02-11] VITALS (7 sets, daily range): BP systolic 111–169; BP diastolic 69–87; PULSE 81–105; RESP 18; TEMP 36.7–37.1; O2SAT 96–99
[2023-02-11 07:39] LABS: Hematocrit 29.1 % (42.0-52.0); Hemoglobin 9.6 g/dL (14.0-18.0); Mean Corpuscular Hemoglobin 31.4 pg (26-34); Mean Corpuscular Volume 95.1 fl (80-100); Mean Platelet Volume 8.8 fl (7.4-10.4); Platelet Count Result 272 k/mm3 (150-375); Red Blood Count 3.06 M/mm3 (4.6-6.20); Red Cell Distribution Width 14.2 % (11.5-14.5); White Blood Count 8.9 K/mm3 (4.5-10.0)
[2023-02-11 07:54] LABS: Anion Gap 7 mmol/L (8-16); Blood Urea Nitrogen 13 mg/dL (9-20); Calcium 8.4 mg/dL (8.4-10.2); Carbon Dioxide 23 mmol/L (22-30); Chloride 104 mmol/L (98-107); Estimated CRCL calculation 77 ml/min; Estimated Glomerular Filt Rate > 60; Glucose 105 mg/dL (65-110); Potassium 3.7 mmol/L (3.4-5.0); Sodium 134 mmol/L (137-145)
--- NOTE | 2023-02-11 08:23 | PCPTNOTE ---
Attempted to see patient for PT, however patient was working with OT.
[2023-02-11] MEDS: CLOPIDOGREL BISULFATE 75 MG TABLET PO (08:37)
[2023-02-11] MEDS: OMEGA 3 POLYUNSAT FATTY ACIDS 1 GM CAP PO (08:37)
[2023-02-11] MEDS: ATORVASTATIN 40 MG TABLET PO (08:37)
[2023-02-11] MEDS: CHOLECALCIFEROL 1,000 UNITS TABLET 2000 UNITS PO (08:38)
[2023-02-11] MEDS: PANTOPRAZOLE 40 MG TABLET PO (08:38)
[2023-02-11] MEDS: ASPIRIN 81 MG ENTERIC TABLET PO (08:38)
[2023-02-11] MEDS: ASCORBIC ACID 250 MG TABLET PO (08:38)
[2023-02-11] MEDS: gemfibroziL 600 MG TABLET PO ×2 (08:38→16:21)
[2023-02-11] MEDS: METOPROLOL SUCCINATE EXT REL 50 MG TABCR PO (08:38)
[2023-02-11] MEDS: ESCITALOPRAM OXALATE 5 MG TABLET PO (08:38)
[2023-02-11] MEDS: levETIRAcetam 500 MG TABLET 1000 MG PO ×2 (08:39→16:21)
[2023-02-11] MEDS: OPTI-GEN TAB 1 TABLET PO (08:39)
[2023-02-11] MEDS: ACETAMINOPHEN 500 MG TABLET 1000 MG PO (08:39)
[2023-02-11] MEDS: ISOSORBIDE MONONITRATE 30 MG TAB.ER.24H PO (08:39)
[2023-02-11] MEDS: ENOXAPARIN 40 MG/0.4 ML SYRINGE SUB-Q (08:40)
--- NOTE | 2023-02-11 09:43 | PCNWS ---
Weekly nutritional screen. Patient is tolerating current diet, soft & BS level 6 with mildly thick liquids, with adequate intake 75-100%. Glucerna BID for additional 220 kcal and 10 g protein each. No weight loss reported. No nutritional needs at this time.
--- NOTE | 2023-02-11 13:57 | PM.DS ---
DS: Admitting Diagnosis Discharge Date 02/11/23 Admitting Diagnosis Syncope Closed hip fracture Closed intertrochanteric fracture of right femur Nonspecific paroxysmal spell Essential hypertension Type II DM Chronic GERD History of CVA Ischemic cardiomyopathy DS: Discharge Diagnosis Discharge Diagnosis (1) Syncope: Qualifiers: Syncope type: unspecified Qualified Code(s): R55 - Syncope and collapse Code(s): R55 - Syncope and collapse Status: Acute (2) Closed intertrochanteric fracture of right femur: Qualifiers: Encounter type: subsequent encounter Fracture alignment: displaced Fracture healing: with routine healing Qualified Code(s): S72.141D - Displaced intertrochanteric fracture of right femur, subsequent encounter for closed fracture with routine healing Code(s): S72.141A - Displaced intertrochanteric fracture of right femur, initial encounter for closed fracture Status: Acute (3) Nonspecific paroxysmal spell: Code(s): R40.4 - Transient alteration of awareness Status: Acute (4) Essential (primary) hypertension: Code(s): I10 - Essential (primary) hypertension Status: Chronic (5) Type 2 diabetes mellitus with other diabetic kidney complication: Code(s): E11.29 - Type 2 diabetes mellitus with other diabetic kidney complication Status: Chronic (6) Chronic GERD: Code(s): K21.9 - Gastro-esophageal reflux disease without esophagitis Status: Chronic (7) Ischemic cardiomyopathy: Code(s): I25.5 - Ischemic cardiomyopathy Status: Chronic (8) Anemia: Qualifiers: Anemia type: other cause Other causes of anemia: acute posthemorrhagic Qualified Code(s): D62 - Acute posthemorrhagic anemia Code(s): D64.9 - Anemia, unspecified Status: Acute DS: Summary Hospital Course Reason for hospitalization: Syncope and collapse Closed intertrochateric fracture of the right femur Hospital Course: This is an 82 year old male who presented to the hospital on 02/04/23 for evaluation after syncopal episode. Work up in the hospital included a hip x-ray that revealed a comminuted intertrochanteric fracture of the right femoral neck. CXR which was normal. Head CT only revealing old infarcts. CT of cervical spine was negative for any acute fracture. Chest CTA was negative for PE. Orthopedics was consulted and patient went to the OR on 02/05/23 and had an IM nailing of the right intertrochanteric fracture. Patient worked with PT/OT. Case coordination set up SNF. On examination today patient is alert and oriented x3, lying in the bed. He reports that his pain is about 5/10 which is manageable. Labs were essentially unremarkable. VSS, he is afebrile, and currently on room air. He is stable for discharge at this time to SNF. He is to follow up with Orthopedics in 2 weeks and his primary care physician upon discharge. Final diagnosis: Fall, displaced intertrochanteric right hip fracture Status at Discharge Cognitive/behavioral status at discharge: Alert and oriented x3 Functional status at discharge: uses cane/walker Overall status at discharge: patient is progressing back to baseline Time Spent with Patient Time attestation: Total time spent providing and/or coordinating discharge services: Time spent: Greater than 30 minutes Exam Narrative: General: In no acute distress, well nourished Head: atraumatic, no encephalopathy Eyes: EOMI, PERRLA, sclera clear ENT: moist mucous membranes, nasal passages clear Neck: supple, no JVD, no adenopathy, trachea midline Cardiac: Normal S1 and S2. No murmur, gallops or friction rubs, peripheral pulses intact. Respiratory: Lungs clear to auscultation, no adventitious lung sounds Gastrointestinal: soft, non-distended, non-tender, hypoactive bowel sounds. : voiding without difficulty. Extremities: moves all extremities well, no edema Skin: Dressing clean dry and intact on the
[2023-02-11 15:18] LABS: SARS-CoV-2 RNA PCR Negative (Negative)
== END 2023-02-11 17:06 | DRG 481 ==
LOC: ANHED 20:06 → ANH3MEDSUR 22:17 → ANH3MED 23:09
PROVIDERS: Nurse Practitioner; Orthopaedic Surgery; Admitting Provider Internal Medicine; Emergency Provider Emergency Medicine; PCP Family Medicine; Visit Provider Nurse Practitioner Acute Care
PROC: 0QS634Z Reposition Right Upper Femur with Internal Fixation Device, Percutaneous Approach (ICD-10-PCS; CPT 27245; principal; 2023-02-05 10:30)
DX: S72.141A Displaced intertrochanteric fracture of right femur, initial encounter for closed fracture (principal); D62 Acute posthemorrhagic anemia; E87.1 Hypo-osmolality and hyponatremia; W18.30XA Fall on same level, unspecified, initial encounter; I25.119 Atherosclerotic heart disease of native coronary artery with unspecified angina pectoris; I67.2 Cerebral atherosclerosis; K21.9 Gastro-esophageal reflux disease without esophagitis; I10 Essential (primary) hypertension; E11.29 Type 2 diabetes mellitus with other diabetic kidney complication; G40.909 Epilepsy, unspecified, not intractable, without status epilepticus; F41.1 Generalized anxiety disorder; R55 Syncope and collapse; H40.9 Unspecified glaucoma; E78.5 Hyperlipidemia, unspecified; I25.5 Ischemic cardiomyopathy; I48.0 Paroxysmal atrial fibrillation; Z87.891 Personal history of nicotine dependence; Z79.4 Long term (current) use of insulin; Z79.02 Long term (current) use of antithrombotics/antiplatelets; Z86.73 Personal history of transient ischemic attack (TIA), and cerebral infarction without residual deficits; Z79.82 Long term (current) use of aspirin
CPT/HCPCS: 36415; 36430; 70450; 71045; 71275; 72125; 73502; 80048; 80053; 80307; 81001; 82728; 82948; 83540; 83550; 83735; 83880; 84100; 84484; 85025; 85027; 85380; 85610; 85730; 86850; 86900; 86901; 86923; 87045; 87086; 87427; 87449; 87493; 87635; 87637; 92610; 92611; 93005; 96374; 97110; 97161; 97166; 97530; 97535; 99199; 99285; A9270; C1713; G0378; J0690; J1100; J1170; J1650; J1756; J2270; J2371; J2405; J2704; J3010; J7030; J7040; J7050; P9016; Q9967

== ENCOUNTER 2023-04-04 08:54 | Outpatient (CLI) | payer MEDICARE, SELFPAY ==
--- NOTE | 2023-04-08 12:44 | WPDNEUROLOGY ---
Neurology EEG Report General Information Date of Study: 04/04/23 TEST eeg DIAGNOSIS absence like events CONDITION OF RECORDING awake drowsy and sleep EEG NUMBER 24-25 CLINICAL HISTORY patient states he is having episodes of spacing out. He can hear and see what is going on around him but unable to respond. Episodes can last [id number] and can happen couple of times a day. History of stroke the slightly affected his left side of the body. EEG DESCRIPTION low-voltage beta activity seen diffusely during drowsiness multiple EKG artifact and poorly organized low-voltage 9 to 11 hertz per 2nd alpha posteriorly. Bilateral symmetrical sleep activity is noted with multiple movement artifacts. Photic stimulation produced poor drive. hyperventilation not done. Non paroxysmal. Nonfocal. Non lateralizing. IMPRESSION No significant abnormalities noted
== END 2023-04-04 08:55 | disposition home or self-care (01) ==
PROVIDERS: PCP Family Medicine; Visit Provider Family Medicine
DX: R56.9 Unspecified convulsions (principal)
CPT/HCPCS: 95816

== ENCOUNTER 2023-04-30 14:27 | Inpatient (IN) | payer MEDICARE, SELFPAY ==
[2023-04-30] VITALS (11 sets, daily range): BP systolic 118–138; BP diastolic 64–100; PULSE 98–123; RESP 9–22; TEMP 36.6–36.9; O2SAT 97–100
--- NOTE | ~2023-04-30 | CT_ITS ---
EXAMINATION: CT abdomen pelvis w con DATE: 04/30/2023 16:05 INDICATION: Lower GI bleed TECHNIQUE: Computed tomography (CT) of the abdomen and pelvis was performed with 100 cc Omnipaque 350 intravenous contrast. The dose-length product was 311.27 mGy-cm. Automated exposure control and iter ative reconstruction technique were employed. COMPARISON: CT dated 09/05/2020. FINDINGS: Lung bases are unremarkable. Heart size normal. No significant pleural or pericardial effus ion. Fatty infiltration of the liver. Calcified granulomas of the spleen. Status post cholecystectomy. Col onic diverticulosis without evidence for diverticulitis. No bowel obstruction. Prostate gland is prom inent. There is atherosclerosis of the aorta without aneurysm. No lymphadenopathy. There is a stent i n the SMA. There is a dynamic compression screw and intramedullary thais transfixing a comminuted right femoral intertrochanteric fracture. Moderate-severe lumbar spondylosis. There are small low-density lesions in both kidneys, likely benign. Calcified granuloma right middle lobe. Dependent atelectasis. No free air or free fluid. Small fat-containing left inguinal hernia. IMPRESSION: 1. No acute abdominal abnormality. Reviewed, dictated and finalized at location A.
--- NOTE | ~2023-04-30 | NM_ITS ---
EXAMINATION: NM GI bleeding DATE: 05/01/2023 12:50 INDICATION: Gastrointestinal bleed TECHNIQUE: 21.2 mCi Tc 99m in vitro labeled red cells administered intravenously. Scintigraphic imag es of the abdomen were obtained through 1 hour. FINDINGS: No pattern of abnormal activity is seen in the abdomen or pelvis to suggest gastrointestina l hemorrhage. During the latter portion of the study the patient moved his hand over the right abdome n with activity at the peripheral IV site at the right hand accounting for the 3 static small foci of activity seen towards the latter portion of the study. IMPRESSION: 1. No scintigraphic evidence for active gastrointestinal bleeding. Reviewed, dictated and finalized at location L.
--- NOTE | ~2023-04-30 | XR_ITS ---
EXAMINATION: XR chest 1V portable 05/02/2023 20:14 INDICATION: Chills. PROCEDURE: AP portable chest COMPARISON: 02/04/2023 FINDINGS: The lungs are clear. The cardiomediastinal silhouette is within normal limits. There are no pleural effusions. There is no pneumothorax suspected. There is atherosclerosis of the aorta. IMPRESSION: 1: NO ACUTE CARDIOPULMONARY DISEASE. Reviewed, dictated and finalized at location A.
[2023-04-30 15:05] LABS: Basophils Absolute Auto 0.1 K/mm3 (0.0-0.1); Basophils Percent Auto 0.8 % (0.2-1.2); Eosinophils Absolute Auto 0.1 K/mm3 (0-0.3); Eosinophils Percent Auto 0.9 % (0-4.4); Hematocrit 24.6 % (42.0-52.0); Hemoglobin 8.2 g/dL (14.0-18.0); Immature Granulocyte Absolute 0.04 K/mm3 (0.00-0.031); Immature Granulocyte Percent A 0.6 % (0-0.5); Lymphocytes Absolute Auto 0.97 K/mm3 (0.9-3.2); Lymphocytes Percent Auto 15.3 % (18.3-44.2); Mean Corpuscular HGB Conc 33.3 g/dl (32-36); Mean Corpuscular Volume 96.1 fl (80-100); Mean Platelet Volume 8.9 fl (7.4-10.4); Monocytes Absolute Auto 0.7 K/mm3 (0.1-0.6); Monocytes Percent Auto 10.7 % (2.6-8.5); Neutrophils Absolute Auto 4.6 K/mm3 (1.3-6.7); Neutrophils Percent Auto 71.7 % (45.5-73.1); Platelet Count Result 242 k/mm3 (150-375); Red Blood Count 2.56 M/mm3 (4.6-6.20); Red Cell Distribution Width 14.6 % (11.5-14.5); White Blood Count 6.4 K/mm3 (4.5-10.0)
--- NOTE | 2023-04-30 15:07 | ED.GIBLEED ---
HPI - GI Bleed General Chief complaint: GI Bleed Stated complaint: bloody stool Time Seen by Provider: 04/30/23 14:36 History of Present Illness HPI Narrative: Patient with history of anemia, prior GI bleed requiring blood transfusion, presents here after noticing blood in his stools the last few days starting Friday. Initially he thought that it was just diarrhea however he finally noticed it did look like blood. Not much abdominal pain, no nausea vomiting. Only having 1-2 bloody stools per day. Related Data Home Medications Medication Instructions Recorded Confirmed ascorbic acid (vitamin C) 500 mg 250 mg PO DAILY 06/29/21 03/13/23 tablet vit C 250 mg-vit E 90 mg-zinc 40 1 tablet PO BID 06/29/21 03/13/23 mg-copper 1 kx-biyrhy-afvnss capsule (PreserVision AREDS-2) vitamin B complex (B 1 tablet PO DAILY 06/29/21 03/13/23 Complex-Vitamin B12 tablet) atorvastatin 40 mg tablet 40 mg PO DAILY 01/25/22 03/13/23 acetaminophen 500 mg capsule 500 mg PO .twice daily 04/16/22 03/13/23 cholecalciferol (vitamin D3) 125 50 mcg PO DAILY 04/16/22 03/13/23 mcg (5,000 unit) capsule coenzyme Q10 100 mg capsule 200 mg PO DAILY 04/16/22 03/13/23 gemfibrozil 600 mg tablet 600 mg PO BID 04/16/22 03/13/23 levetiracetam 1,000 mg tablet 1,000 mg PO BID 04/16/22 03/13/23 wwypdhcb-if-gdomb 300 mcg-K 60 1 tablet PO DAILY 04/16/22 03/13/23 mcg-lycop 600 mcg-lutein 300 mcg tablet (Centrum Minto Men) omega 8-yay-zyd-fish oil 1,200 mg 1 cap PO DAILY 04/16/22 03/13/23 (144 mg-216 mg) capsule (Fish Oil) metoprolol succinate 50 mg 50 mg PO DAILY 07/26/22 03/13/23 tablet,extended release 24 hr isosorbide mononitrate 30 mg 30 mg PO DAILY 02/05/23 03/13/23 tablet,extended release 24 hr sxspfzxfjngc-oawzpzrd-ibrrzo tablet 1 tablet PO DAILY 02/05/23 03/13/23 pantoprazole 40 mg tablet,delayed 40 mg PO DAILY 02/05/23 03/13/23 release Allergies Allergy/AdvReac Type Severity Reaction Status Date / Time No Known Allergies Allergy Verified 04/30/23 14:46 Review of Systems Review of Systems: CONST: No fever. HEENT: No sore throat C/V: No chest pain RESP: No cough GI: Bloody stools : No dysuria. M/S: No joint pain. SKIN: No rash. NEURO: [No headache or focal numbness or weakness] PSYCH: [No depression] [facility] Past Medical History Medical History (Updated 04/30/23 @ 14:57 by Blaire Jorgensen MD) Anemia Atherosclerotic heart disease of [place] coronary artery with unspecified angina pectoris Cerebral atherosclerosis Chronic GERD Closed hip fracture Epilepsy, unspecified, not intractable, without status epilepticus Essential (primary) hypertension Generalized anxiety disorder Glaucoma History of CVA (cerebrovascular accident) x4 without any residual Hyperlipidemia Hypertension Hyponatremia Ischemic cardiomyopathy Nicotine dependence, chewing tobacco, with other nicotine-induced disorders Quit chewing tobacco in 2022 Nonspecific paroxysmal spell Proteinuria, unspecified Stenosis of other vascular prosthetic devices, implants and grafts, subsequent encounter Syncope Type 2 diabetes mellitus with other diabetic kidney complication Surgical History Surgical History (Updated 03/13/23 @ 12:17 by David Ramon MD) History of bilateral knee replacement left 2009 right 2019 History of cataract extraction History of open reduction and internal fixation (ORIF) procedure Right hip fracture 02/05/2023 Hx of cholecystectomy 2000 Stented coronary artery x4 Family History Family History Father Cerebrovascular accident Sibling Breast cancer Sister Diabetes mellitus Kidney failure Social History Social History Social History: patient stated he quit smoking over 35 years ago. He had 5 children. And lives with his 2nd who is a durable power plans examiner for healthcare. The patient used to smo
[2023-04-30] MEDS: PANTOPRAZOLE SODIUM IV 40 MG VIAL IV PUSH (15:10)
[2023-04-30 15:12] LABS: Alanine Aminotransferase 15 U/L (6-50); Albumin Level 3.4 g/dL (3.5-5.1); Alkaline Phosphatase 98 U/L (38-126); Anion Gap 6 mmol/L (8-16); Aspartate Amino Transferase 25 U/L (17-59); Bilirubin,Total 0.3 mg/dL (0.2-1.3); Blood Urea Nitrogen 20 mg/dL (9-20); Calcium 8.8 mg/dL (8.4-10.2); Carbon Dioxide 25 mmol/L (22-30); Chloride 100 mmol/L (98-107); Estimated CRCL calculation 55 ml/min; Estimated Glomerular Filt Rate > 60; Glucose 121 mg/dL (65-110); Sodium 131 mmol/L (137-145)
[2023-04-30] MEDS: LACTATED RINGERS 1,000 ML 999 ML IV CONT (15:14)
[2023-04-30 15:17] LABS: INR 1.1; Prothrombin Time 14.3 Seconds (11.1-14.7)
[2023-04-30 15:18] LABS: Partial Thromboplastin Time 26.9 Seconds (22.3-36.8)
--- NOTE | 2023-04-30 18:41 | ADMGEN ---
This patient, Ramiro Enciso, was admitted to [facility] Surg Room 328-01. Patient/family oriented to hospital policies and general routines including ID bracelet, bed and alarms, visiting hours, pain management, procedures, bathroom and other care routines, personal items, smoking policy, room service/diet, and visiting hours. Information on how to activate the Rapid Response Team has been discussed. Patient/Family are encouraged to report perceived risks to care and to ask questions if they do not understand what they are told or what they should do.
--- NOTE | 2023-04-30 22:41 | PM.IMHP ---
H&P: HPI History of Present Illness Date/Time: 04/30/23 22:41 Chief Complaint: Nausea, BRB per rectum Narrative: 82 y/o M presents here with nausea, dark red blood per rectum, and abdominal discomfort with PMH of anemia, GERD, epilepsy, HTN, TARYN, CVA x4 without residual deficits, HLD, HTN, ischemic cardiomyopathy, diabetes, and history of GI bleed requiring blood transfusion. Patient presents here for further evaluation of dark red blood per rectum that has been ongoing for the past few days. Patient first noticed this on Friday, 04/27. On average having 2 bloody stools per day. Stools were loose - new, also started Friday. Reported some intermittent abdominal discomfort secondary to gas pains. No nausea or vomiting. No fever, has chills intermittently for the past several years. Denies any current anticoagulation medications. Last GI bleed was 10-15 years ago. Did not have colonoscopy done then but required multiple transfusions. Has had 1 colonoscopy - was a long time ago . Patient reports they found a few benign polyps, has not had any scopes since. Initial VS at presentation: 98.5 F, HR 123, RR 22, 118/100, 97% on RA. ED workup showed: No leukocytosis, Hgb 8.2 (previously 9.6 in Jan), Na 131, creatinine 0.8. ERIN had grossly bloody stool in the vault. Review of Systems Review of Systems: All systems reviewed & are unremarkable except as noted in HPI and below PMFSH Past Medical History Medical History Anemia Atherosclerotic heart disease of [place] coronary artery with unspecified angina pectoris Cerebral atherosclerosis Chronic GERD Closed hip fracture Epilepsy, unspecified, not intractable, without status epilepticus Essential (primary) hypertension Generalized anxiety disorder Glaucoma History of CVA (cerebrovascular accident) x4 without any residual Hyperlipidemia Hypertension Hyponatremia Ischemic cardiomyopathy Nicotine dependence, chewing tobacco, with other nicotine-induced disorders Quit chewing tobacco in 2022 Nonspecific paroxysmal spell Proteinuria, unspecified Stenosis of other vascular prosthetic devices, implants and grafts, subsequent encounter Syncope Type 2 diabetes mellitus with other diabetic kidney complication Surgical History Surgical History History of bilateral knee replacement left 2009 right 2020 History of cataract extraction History of open reduction and internal fixation (ORIF) procedure Right hip fracture 02/05/2023 Hx of cholecystectomy 2000 Stented coronary artery x4 Family History Family History Father Cerebrovascular accident Sibling Breast cancer Sister Diabetes mellitus Kidney failure Social History Social History Social History: patient stated he quit smoking over 35 years ago. He had 5 children. And lives with his 2nd who is a durable power corporate associate attorney for healthcare. 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 code status full code. Smoking packs per day: 1.5 Smoking cigarettes per day: 30.0 Years smoked: 10 Smoking pack-years: 15.00 Smoking status: Former smoker Second hand tobacco smoke exposure: Yes Additional smoking assessment comments: Quit chewing tobacco in 2022 Alcohol intake: former Substance use: never Substance use type: does not use Do You Feel Safe in your Home?: Yes Lack of Transportation: No Lack of Food: Never True Current Housing: I Have Housing Concerned About Future Housing: No Difficulty Paying Gas/Electric Bills: No Difficulty Paying for Meds: No Currently Unemployed: No Education: Associate Degree Difficulty w/ Childcare or Family Care: No Living arrangements: with family Occupation
[2023-04-30] MEDS: ACETAMINOPHEN 500 MG TABLET PO (23:14)
[2023-05-01] VITALS (19 sets, daily range): BP systolic 78–122; BP diastolic 50–72; PULSE 76–107; RESP 16–18; TEMP 36.4–37.3; O2SAT 94–99
[2023-05-01 07:26] LABS: Basophils Percent Auto 0.7 % (0.2-1.2); Eosinophils Absolute Auto 0.1 K/mm3 (0-0.3); Hematocrit 21.5 % (42.0-52.0); Immature Granulocyte Absolute 0.03 K/mm3 (0.00-0.031); Immature Granulocyte Percent A 0.5 % (0-0.5); Lymphocytes Absolute Auto 1.11 K/mm3 (0.9-3.2); Lymphocytes Percent Auto 18.6 % (18.3-44.2); Mean Corpuscular HGB Conc 32.1 g/dl (32-36); Mean Corpuscular Hemoglobin 31.4 pg (26-34); Mean Corpuscular Volume 97.7 fl (80-100); Mean Platelet Volume 9.4 fl (7.4-10.4); Monocytes Absolute Auto 0.7 K/mm3 (0.1-0.6); Neutrophils Percent Auto 67.2 % (45.5-73.1); Platelet Count Result 234 k/mm3 (150-375); Red Cell Distribution Width 14.8 % (11.5-14.5)
[2023-05-01 07:35] LABS: Alanine Aminotransferase 13 U/L (6-50); Alkaline Phosphatase 95 U/L (38-126); Anion Gap 3 mmol/L (8-16); Aspartate Amino Transferase 22 U/L (17-59); Bilirubin,Total 0.3 mg/dL (0.2-1.3); Blood Urea Nitrogen 22 mg/dL (9-20); Calcium 8.8 mg/dL (8.4-10.2); Carbon Dioxide 26 mmol/L (22-30); Chloride 104 mmol/L (98-107); Estimated CRCL calculation 55 ml/min; Estimated Glomerular Filt Rate > 60; Glucose 98 mg/dL (65-110); Sodium 133 mmol/L (137-145)
[2023-05-01 07:42] LABS: Hemoglobin 6.9 g/dL (14.0-18.0)
[2023-05-01 08:07] LABS: Thyroid Stimulating Hormone Reflex < 0.015 uIU/mL (0.465-4.68)
[2023-05-01 08:07] LABS: Glucose Point of Care 128 mg/dl (65-105)
[2023-05-01 08:41] LABS: Free T4 Free Thyroxine Reflex 1.19 ng/dL (0.78-2.19)
[2023-05-01] MEDS: SODIUM CHLORIDE 0.9% IV 250 ML 30 ML IV CONT (08:42)
[2023-05-01] MEDS: TUBING, BLOOD PLUM PUMP TUBING 1 EACH XX ×2 (08:43→14:12)
[2023-05-01 09:58] LABS: Total Triiodothyronine (T3) 0.89 NG/ML (0.97-1.69)
--- NOTE | 2023-05-01 12:15 | PM.IMPN ---
Progress Note: A&P Assessment and Plan (1) Hematochezia: Code(s): K92.1 - Melena Status: Acute (2) History of open reduction and internal fixation (ORIF) procedure: Code(s): Z98.890 - Other specified postprocedural states Status: Acute (3) Weakness: Code(s): R53.1 - Weakness Status: Acute (4) Anemia: Qualifiers: Anemia type: other cause Other causes of anemia: acute posthemorrhagic Qualified Code(s): D62 - Acute posthemorrhagic anemia Code(s): D64.9 - Anemia, unspecified Status: Acute Plan 82-year-old male with history of anemia, GERD, epilepsy, hypertension, CAD status post prior stenting, general anxiety disorder, CVA x4 without residual deficits, hyperlipidemia, ischemic cardiomyopathy, iru-mzqifqa-foacmyqto diabetes mellitus, history of GI bleed, recent syncope in January 2023 status post right comminuted intertrochanteric fracture of the right femoral neck status post surgical repair presents with nausea and dark red blood per rectum with abdominal discomfort. On admission is hemoglobin 8.2. Admitted for GI workup on 04/30/2023 Acute blood loss anemia/hematochezia/lower GI bleed -he has a history of GI bleed approximately a decade ago. Received blood transfusions. His last colonoscopy was also a very long time ago and he does not remember the results although was total was normal. -hemoglobin on admission 8.2 dropping to 6.9 and April 30 causing a near syncope episode where nurse had to lower him to the floor and he had another bloody bowel movement. Soft blood pressures. -transfuse 2 units PRBC and trend hemoglobin. Goal hemoglobin greater than 8 g/dL. Bed rest. NPO. Orthostatics Q shift. Normal saline at 83 cc/hour. Telemetry -GI consulted. Pending nuclear medicine GI bleed scan Chronic anemia -normocytic. 01/2023 iron level 16 and ferritin 190 -treat above History of hypertension -hold home medications. Blood pressure on the lower side History of GERD -continue Protonix History of epilepsy -Keppra changed to IV while p.o. Lpc-rjbuikb-cqbvrdhjp diabetes mellitus -Accu-Cheks q.6 hours. Hypoglycemia protocol History of CAD status post prior stenting -continue atorvastatin and aspirin when taking p.o. again. FEN: Maintenance fluids with normal saline at 83 cc/hour. NPO. GI prophylaxis: Protonix IV DVT prophylaxis: SCDs only Lines: Peripheral IV Code Status: Full code Dispo: Guarded medical floor with telemetry Subjective Date/time seen: 05/01/23 12:15 Interval history: Rapid response called approximately 7:30 a.m.. Entered room to observe patient lying on the floor with a large bloody bowel movement in his diaper. Nurse reports he was getting him up to go to the bathroom and he felt too weak and he was lowered to the floor. Patient reports he is weak and not doing well otherwise has no specific complaints. Review of Systems Review of Systems: All systems reviewed & are unremarkable except as noted in HPI and below (Subjective) Exam Const: General: comfortable and no acute distress Other: Frail and weak appearing elderly gentleman Eyes: Pupils: Equal, round and reactive pupils present Neck: Neck: supple Resp: Effort & Inspection: normal respiratory effort Auscultation: clear to auscultation bilaterally Cardio: Rate: regular rate Rhythm: regular rhythm GI: GI Palp: Yes Soft to palpation Neuro: Other: Pale, globally weak Extrem: General: no edema Objective Data Vital Signs Vital Signs: Vital Signs - 24 hr 04/30/23 14:40 04/30/23 15:10 04/30/23 16:06 Temperature 98.5 F Pulse Rate 123 H 119 H 101 H Respiratory Rate 22 H 21 H 9 L Blood Pressure 118/100 H 136/66 130/64 Pulse Oximetry 97 98 100 Oxygen Delivery Room Air 04/30/23 16:15 04/30/23 16:40 04/30/23 17:01 Temperature Pulse Rate 98 100 101 H Respiratory Rate 18 22 H 19 Blood Pressure 132/66 126/65 Pulse Oximetr
--- NOTE | 2023-05-01 12:54 | WPDGICN ---
Assessment and Plan Assessment and plan (1) Lower GI bleed: Code(s): K92.2 - Gastrointestinal hemorrhage, unspecified Status: Acute Assessment and Plan: Evidence of rectal bleeding consistent with lower GI blood loss concerning for possible diverticular bleed. Had similar episode 5-10 years ago at outside hospital that self-resolved. Has drop in from hgb 8.2-6.9 this AM with standing and passing bloody BM-rapid response was called. -nuclear medicine scan is currently pending -Will plan on colonoscopy and EGD tomorrow (2) Hematochezia: Code(s): K92.1 - Melena Status: Acute Assessment and Plan: Continues to have bloody stools Colonoscopy and EGD tomorrow. (3) Acute blood loss anemia: Code(s): D62 - Acute posthemorrhagic anemia Status: Acute Assessment and Plan: Likely due to lower GI blood loss Had 2 units PRBC this AM -Monitor H&H, transfuse PRN (4) Weakness: Code(s): R53.1 - Weakness Status: Acute (5) Essential (primary) hypertension: Code(s): I10 - Essential (primary) hypertension Status: Chronic (6) Epilepsy, unspecified, not intractable, without status epilepticus: Qualifiers: Epilepsy type: unspecified Qualified Code(s): G40.909 - Epilepsy, unspecified, not intractable, without status epilepticus Code(s): G40.909 - Epilepsy, unspecified, not intractable, without status epilepticus Status: Acute (7) History of CVA (cerebrovascular accident): Code(s): Z86.73 - Personal history of transient ischemic attack (TIA), and cerebral infarction without residual deficits Status: Acute (8) Chronic GERD: Code(s): K21.9 - Gastro-esophageal reflux disease without esophagitis Status: Chronic Assessment and Plan: on protonix GI Consult Note Consult date/time: 05/01/23 0930 Reason for consult: GI bleed. HPI: Ramiro Enciso is a 82 year old history of anemia, GERD, epilepsy, hypertension, CAD status post prior stenting, general anxiety disorder, CVA x4 without residual deficits, hyperlipidemia, ischemic cardiomyopathy, fun-ixtdlag-podlpepxi diabetes mellitus, history of GI bleed. He states 4 days ago he started having maroon-colored stools around 2 per day with diarrhea. He denies any associated abdominal pain with this. He came to ER on 04/30/23 due to increasing weakness and fatigue, he was found to have a hemoglobin on admission of 8.2 with tachycardia. Occult stool positive. CT of the abdomen and pelvis with no acute abnormality noted. He reports similar GI bleed around 5-10 years ago and was early but he states it resolved on its own but did receive quite a few units of blood. He states his last colonoscopy was over 20 years ago and does report a history of ?benign colon polyps?. No family history of colon cancer or inflammatory bowel disease. He has no history of radiation to the pelvic region. He continues to pass maroon colored stools and had a near syncopal episode this morning upon walking to the bathroom with the nurse had to gradually lowered to the ground. After this he did pass a large amount of bright red blood per the nurse. He was then found to have a hemoglobin of 6.9 and did get 2 units of packed red blood cells. He denies any nausea, vomiting, dysphagia, odynophagia, appetite loss, chronic NSAID use, abnormal weight loss. He has never had an EGD.Denies chest pain or SOB. Reports feeling weak and tired. Review of Systems Constitutional: Constitutional: Reports as per HPI ENT: Reports as per HPI Cardiovascular: Cardiovascular: Reports as per HPI Gastrointestinal: Gastrointestinal: Reports as per HPI Musculoskeletal: Musculoskeletal: Reports as per HPI Integumentary/Breasts: Skin/Breast: Reports as per HPI Psychiatric: Psychiatric: Reports as per HPI [facility] Past Medical History Medical History Anemia
[2023-05-01] MEDS: PANTOPRAZOLE SODIUM IV 40 MG VIAL IV PUSH (13:18)
[2023-05-01] MEDS: levETIRAcetam 1000MG/NACL100ML 1,000 MG/100 ML BAG 400 MG IVPB ×2 (13:18→20:48)
[2023-05-01] MEDS: SODIUM CHLORIDE 0.9% IV 1,000 ML 83 ML IV CONT (14:09)
[2023-05-01] MEDS: polyethylene glycoL 3350 238 GM BOTTLE PO (16:38)
[2023-05-01] MEDS: BISACODYL 5 MG TABLET EC 20 MG PO (16:38)
[2023-05-01 17:01] LABS: Hematocrit 25.6 % (42.0-52.0); Hemoglobin 8.5 g/dL (14.0-18.0)
[2023-05-01 18:11] LABS: Glucose Point of Care 153 mg/dl (65-105)
[2023-05-02] VITALS (24 sets, daily range): BP systolic 102–140; BP diastolic 50–73; PULSE 57–140; RESP 12–24; TEMP 36.2–37.5; O2SAT 92–100
[2023-05-02] MEDS: MAGNESIUM CITRATE 300 ML BTL PO (03:05)
[2023-05-02 03:16] LABS: Glucose Point of Care 109 mg/dl (65-105)
[2023-05-02 04:13] LABS: Hematocrit 22.9 % (42.0-52.0); Hemoglobin 7.8 g/dL (14.0-18.0)
[2023-05-02] MEDS: SODIUM CHLORIDE 0.9% IV 1,000 ML 83 ML IV CONT ×2 (06:32→20:42)
[2023-05-02 06:51] LABS: Glucose Point of Care 104 mg/dl (65-105)
[2023-05-02 07:51] LABS: Anion Gap 3 mmol/L (8-16); Blood Urea Nitrogen 16 mg/dL (9-20); Calcium 8.3 mg/dL (8.4-10.2); Carbon Dioxide 23 mmol/L (22-30); Chloride 108 mmol/L (98-107); Estimated CRCL calculation 62 ml/min; Estimated Glomerular Filt Rate > 60; Glucose 103 mg/dL (65-110); Magnesium 1.9 mg/dL (1.6-2.3); Potassium 3.8 mmol/L (3.4-5.0); Sodium 134 mmol/L (137-145)
[2023-05-02 07:56] LABS: Hematocrit 22.9 % (42.0-52.0); Hemoglobin 7.6 g/dL (14.0-18.0); Mean Corpuscular HGB Conc 33.2 g/dl (32-36); Mean Corpuscular Hemoglobin 31.5 pg (26-34); Platelet Count Result 198 k/mm3 (150-375); Red Blood Count 2.41 M/mm3 (4.6-6.20); Red Cell Distribution Width 15.7 % (11.5-14.5); White Blood Count 7.1 K/mm3 (4.5-10.0)
[2023-05-02] MEDS: levETIRAcetam 1000MG/NACL100ML 1,000 MG/100 ML BAG 400 MG IVPB (09:48)
[2023-05-02] MEDS: PANTOPRAZOLE SODIUM IV 40 MG VIAL IV PUSH (09:49)
[2023-05-02] MEDS: SODIUM CHLORIDE 0.9% IV 250 ML 30 ML IV CONT (10:40)
--- NOTE | 2023-05-02 11:09 | PM.IMPN ---
Progress Note: A&P Assessment and Plan (1) Hematochezia: Code(s): K92.1 - Melena Status: Acute (2) History of open reduction and internal fixation (ORIF) procedure: Code(s): Z98.890 - Other specified postprocedural states Status: Acute (3) Weakness: Code(s): R53.1 - Weakness Status: Acute (4) Anemia: Qualifiers: Anemia type: other cause Other causes of anemia: acute posthemorrhagic Qualified Code(s): D62 - Acute posthemorrhagic anemia Code(s): D64.9 - Anemia, unspecified Status: Acute Plan 82-year-old male with history of anemia, GERD, epilepsy, hypertension, CAD status post prior stenting, general anxiety disorder, CVA x4 without residual deficits, hyperlipidemia, ischemic cardiomyopathy, ecx-jconkes-uqadahyrj diabetes mellitus, history of GI bleed, recent syncope in January 2023 status post right comminuted intertrochanteric fracture of the right femoral neck status post surgical repair presents with nausea and dark red blood per rectum with abdominal discomfort. On admission is hemoglobin 8.2. Admitted for GI workup on 04/30/2023 Acute blood loss anemia/hematochezia/lower GI bleed -he has a history of GI bleed approximately a decade ago. Received blood transfusions. His last colonoscopy was also a very long time ago and he does not remember the results although was total was normal. -hemoglobin on admission 8.2 dropping to 6.9 and April 30 causing a near syncope episode where nurse had to lower him to the floor and he had another bloody bowel movement. Soft blood pressures. -transfuse 2 units PRBC and trend hemoglobin. Goal hemoglobin greater than 8 g/dL. Bed rest. NPO. Orthostatics Q shift. Normal saline at 83 cc/hour. Telemetry -GI consulted. Pending nuclear medicine GI bleed scan 05/02/23: Hb 7.6; EGD and colonoscopy slated for today. will transfuse 2U of PRBC Chronic anemia -normocytic. 01/2023 iron level 16 and ferritin 190 -treat above History of hypertension -hold home medications. Blood pressure on the lower side History of GERD -continue Protonix History of epilepsy -Keppra changed to IV while p.o. Dyy-llucluo-tshzqndyx diabetes mellitus -Accu-Cheks q.6 hours. Hypoglycemia protocol History of CAD status post prior stenting -continue atorvastatin and aspirin when taking p.o. again. FEN: Maintenance fluids with normal saline at 83 cc/hour. NPO. GI prophylaxis: Protonix IV DVT prophylaxis: SCDs only Lines: Peripheral IV Code Status: Full code Dispo: [facility] medical floor with telemetry Subjective Date/time seen: 05/02/23 11:09 Interval history: Seen and examined; Being managed for LGIB. s/p 2U PRBC. Slated for a Colonoscopy today. Hb 7.6 Review of Systems Review of Systems: All systems reviewed & are unremarkable except as noted in HPI and below (Subjective) Eyes: Eyes: Reports no additional eye complaints and Denies photophobia ENT: Denies dysphagia and Denies epistaxis Cardiovascular: Cardiovascular: Reports no additional cardiovascular complaints and Reports palpitations Respiratory: Respiratory: Denies hemoptysis and Denies dyspnea Gastrointestinal: Gastrointestinal: Reports hematochezia and Reports diarrhea Genitourinary: Genitourinary: Denies urinary frequency and Denies urinary incontinence Musculoskeletal: Musculoskeletal: Reports no additional musculoskeletal complaints and Reports myalgias Neurologic: Reports system reviewed and no additional complaints, except as documented and Denies Abnormal speech present Psychiatric: Psychiatric: Reports no additional psychiatric complaints Exam Const: General: comfortable and no acute distress Other: Frail and weak appearing elderly gentleman HENMT: Face/Nose/Sinus: Normal nares present Mouth: Yes moist mucous membranes Eyes: General: appearance normal, both eyes and all related structures Sclera: sclerae normal Pupils: Equal, round and re
[2023-05-02 11:53] LABS: Glucose Point of Care 99 mg/dl (65-105)
[2023-05-02] MEDS: SODIUM CHLORIDE 0.9% IV 250 ML 30 ML (14:15)
--- NOTE | 2023-05-02 15:10 | PC.NURSE ---
pt to GI lab via stretcher, blood transfusion in process
[2023-05-02] MEDS: LACTATED RINGERS 1,000 ML 150 ML IV CONT (15:17)
[2023-05-02 15:22] LABS: Glucose Point of Care 91 mg/dl (65-105)
--- NOTE | 2023-05-02 16:00 | WPDANESEPPF ---
Anes - Initial Pre Proc Eval Procedure: Operation Date: 05/02/23 17:00 Proposed Procedures p Esophagogastroduodenoscopy & Colonoscopy - Ti Brown MD Date/Time: 05/02/23 16:00 Surgeon: Tuyet Reinoso MD Pre Op Diagnosis: LGIB Patient Data Age: 82 Gender: M Height: 1.78 m Weight: 63.9 kg Last Vital Signs Temp 36.8 C 05/02/23 15:35 Pulse 107 H 05/02/23 15:35 Resp 18 05/02/23 15:35 BP 114/50 L 05/02/23 15:35 Pulse Ox 100 05/02/23 15:35 O2 Del Method Room Air 05/02/23 15:13 Allergies Allergy/AdvReac Type Severity Reaction Status Date / Time No Known Allergies Allergy Verified 05/02/23 15:11 Home Medications Medication Instructions Recorded Confirmed Type aspirin 81 mg tablet,delayed 81 mg PO QAM #30 tabs 12/09/20 04/30/23 Rx release ascorbic acid (vitamin C) 500 mg 500 mg PO DAILY 06/29/21 05/01/23 History tablet vit C 250 mg-vit E 90 mg-zinc 40 1 tablet PO BID 06/29/21 04/30/23 History mg-copper 1 ab-lfxvzn-ufrboz capsule (PreserVision AREDS-2) vitamin B complex (B 1 tablet PO DAILY 06/29/21 04/30/23 History Complex-Vitamin B12 tablet) atorvastatin 40 mg tablet 40 mg PO DAILY 01/25/22 04/30/23 History acetaminophen 500 mg capsule 500 mg PO .twice daily 04/16/22 04/30/23 History cholecalciferol (vitamin D3) 125 50 mcg PO DAILY 04/16/22 04/30/23 History mcg (5,000 unit) capsule coenzyme Q10 100 mg capsule 200 mg PO DAILY 04/16/22 04/30/23 History gemfibrozil 600 mg tablet 600 mg PO BID 04/16/22 04/30/23 History levetiracetam 1,000 mg tablet 1,000 mg PO BID 04/16/22 04/30/23 History jfxyhupn-ze-gcbzg 300 mcg-K 60 1 tablet PO DAILY 04/16/22 04/30/23 History mcg-lycop 600 mcg-lutein 300 mcg tablet (Centrum Silver Men) omega 5-mbf-mpt-fish oil 1,200 mg 1 cap PO DAILY 04/16/22 04/30/23 History (144 mg-216 mg) capsule (Fish Oil) clopidogrel 75 mg tablet 75 mg PO DAILY #90 tabs 09/12/22 04/30/23 Rx nucsizomnamp-gdhczrpy-hkgynk tablet 1 tablet PO DAILY 02/05/23 04/30/23 History pantoprazole 40 mg tablet,delayed 40 mg PO DAILY 02/05/23 04/30/23 History release metoprolol succinate 50 mg 50 mg PO DAILY 05/01/23 05/01/23 History tablet,extended release 24 hr Laboratory Tests 04/30/23 05/01/23 05/01/23 14:57 16:58 18:08 WBC RBC Hgb 8.5 L g/dL (14.0-18.0) Hct 25.6 L % (42.0-52.0) MCV MCH MCHC RDW Plt Count MPV Sodium Potassium Chloride Carbon Dioxide Anion Gap BUN Creatinine Estim Creat Clear Calc Estimated GFR Glucose POC Capillary Glucose 153 H mg/dl (65-105) Calcium Magnesium Blood Type A Positive Antibody Screen Negative Crossmatch See Detail 05/02/23 05/02/23 05/02/23 00:57 01:00 06:30 WBC RBC Hgb 7.8 L g/dL (14.0-18.0) Hct 22.9 L % (42.0-52.0) MCV MCH MCHC RDW Plt Count MPV Sodium Potassium Chloride Carbon Dioxide Anion Gap BUN Creatinine Estim Creat Clear Calc Estimated GFR Glucose POC Capillary Glucose 109 H mg/dl 104 mg/dl (65-105) (65-105) Calcium Magnesium Blood Type Antibody Screen Crossmatch 05/02/23 05/02/23 05/02/23 07:32 11:44 15:20 WBC 7.1 K/mm3 (4.5-10.0) RBC 2.41 L M/mm3 (4.6-6.20) Hgb 7.6 L g/dL (14.0-18.0) Hct 22.9 L % (42.0-52.0) MCV 95.0 fl (80-100) MCH 31.5 pg (26-34) MCHC 33.2 g/dl
[2023-05-02] MEDS: EPINEPHrine INJ 1 MG/10 ML SYRINGE 0.2 MG XX (16:53)
--- NOTE | 2023-05-02 16:58 | SUR.OPER ---
Egd ended at 1619, colon began at 1623.
--- NOTE | 2023-05-02 17:35 | PC.NURSE ---
pt returned from GI lab, blood transfusion completed in procedure area, documentation completed, pt given water and will order food
[2023-05-02] MEDS: OPTI-GEN TAB 1 TABLET PO (18:27)
--- NOTE | 2023-05-02 20:04 | ECG_ITS ---
Measurements Intervals [place] Rate: 123 P: [place]: 0 QRS: -70 QRSD: 127 T: 57 QT: 326 QTc: 467 Interpretive Statements SINUS OR ECTOPIC ATRIAL TACHYCARDIA ATRIAL PREMATURE COMPLEXES RIGHT BUNDLE BRANCH BLOCK LEFT ANTERIOR FASCICULAR BLOCK BASELINE ARTIFACT- II, III, AVR, AVL, AVF, V1-2 ABNORMAL ECG COMPARED TO ECG 02/04/2023 18:41:29 SINUS OR ECTOPIC ATRIAL TACHYCARDIA NOW PRESENT Electronically Signed On 05-02-2023 20:38:46 CDT by Kei Gonzalez D.O.
[2023-05-02] MEDS: LORazepam INJ (*CRX) 2 MG/ML VIAL 1 MG IV PUSH (20:10)
[2023-05-02] MEDS: levETIRAcetam 500 MG TABLET 1000 MG PO (20:10)
[2023-05-02] MEDS: SODIUM CHLORIDE 0.9% IV 1,000 ML 999 ML IV CONT (20:25)
[2023-05-02 20:40] LABS: Basophils Percent Auto 0.3 % (0.2-1.2); Eosinophils Percent Auto 0.3 % (0-4.4); Hematocrit 28.3 % (42.0-52.0); Hemoglobin 9.3 g/dL (14.0-18.0); Immature Granulocyte Absolute 0.01 K/mm3 (0.00-0.031); Immature Granulocyte Percent A 0.3 % (0-0.5); Lymphocytes Absolute Auto 0.29 K/mm3 (0.9-3.2); Lymphocytes Percent Auto 10.1 % (18.3-44.2); Mean Corpuscular HGB Conc 32.9 g/dl (32-36); Mean Corpuscular Hemoglobin 30.1 pg (26-34); Mean Corpuscular Volume 91.6 fl (80-100); Mean Platelet Volume 9.1 fl (7.4-10.4); Monocytes Percent Auto 0.3 % (2.6-8.5); Neutrophils Absolute Auto 2.5 K/mm3 (1.3-6.7); Neutrophils Percent Auto 88.7 % (45.5-73.1); Platelet Count Result 181 k/mm3 (150-375); Red Blood Count 3.09 M/mm3 (4.6-6.20); Red Cell Distribution Width 16.8 % (11.5-14.5); White Blood Count 2.9 K/mm3 (4.5-10.0)
[2023-05-02 20:46] LABS: Fractional Inspired Oxygen 21 %; HCO3 VBG 20.9 mEq/l (24.0-30.0); PCO2 VBG 35.9 mmHg (42.0-48.0); pH VBG 7.382 (7.300-7.400)
[2023-05-02 20:49] LABS: Device ROOM AIR; PO2 VBG < 27.0 mmHg (35.0-45.0)
[2023-05-02 20:49] LABS: Alanine Aminotransferase 18 U/L (6-50); Albumin Level 3.2 g/dL (3.5-5.1); Alkaline Phosphatase 92 U/L (38-126); Anion Gap 7 mmol/L (8-16); Aspartate Amino Transferase 28 U/L (17-59); Bilirubin,Total 0.7 mg/dL (0.2-1.3); Blood Urea Nitrogen 16 mg/dL (9-20); Calcium 8.5 mg/dL (8.4-10.2); Carbon Dioxide 22 mmol/L (22-30); Chloride 107 mmol/L (98-107); Creatine Kinase 42 U/L (55-170); Estimated CRCL calculation 55 ml/min; Estimated Glomerular Filt Rate > 60; Glucose 104 mg/dL (65-110); Lactate Dehydrogenase 118 U/L (120-246); Potassium 3.3 mmol/L (3.4-5.0); Sodium 136 mmol/L (137-145)
[2023-05-02 20:55] LABS: INR 1.1; Prothrombin Time 14.9 Seconds (11.1-14.7)
[2023-05-02 20:56] LABS: Fibrinogen 241 mg/dl (215-510); Partial Thromboplastin Time 24.5 Seconds (22.3-36.8)
[2023-05-02 21:14] LABS: Appearance Urine Clear (Clear); Bacteria Urine None Seen /hpf; Bilirubin Urine Negative (Negative); Blood Urine Negative (Negative); Color Urine Yellow (Yellow); Glucose Urine UA Negative (Negative); Ketones Urine Trace mg/dL (Negative); Leukocyte Esterase Ur 1+ LEU/UL (Negative); Need Manual Microscopic Reviewed; Nitrate Urine Negative (Negative); Non Pathogenic Casts 0-2; Protein Urine Negative (Negative); RBC Urine 0-2 /hpf (0-2); Specific Grav Ur 1.023 (1.001-1.035); Squamous Epithelial Cell Urine None Seen /hpf (Few); Urobilinogen Urine 0.2 mg/dL (<2.0); WBC Urine 0-5 /hpf (0-3)
[2023-05-02 21:15] LABS: Add Urine Microscopic? YES
[2023-05-02 21:16] LABS: Glucose Point of Care 115 mg/dl (65-105)
--- NOTE | 2023-05-02 22:13 | P.PNCROSS_ITS ---
Event Note Event Note Event Note: Approximately 1 hour post EGD/colonoscopy patient complained of persistent luz marina ing of the arms and chills. Physical examination revealed tachycardia, mild clonus of the bilateral upper extremities, clear lung sounds. The patient received 2 units of blood prior in the day and also etomidate and propofol during the endoscopies. Chest x-ray lab workup and EKG unrevealing. Myoclonus resolved status post Ativan 1 mg IV x1. Heart rate improved. Lexapro placed on hold for now. Continue to monitor
[2023-05-02] MEDS: POTASSIUM CHLORIDE 20 MEQ ER TABLET PO (22:35)
[2023-05-03] VITALS (23 sets, daily range): BP systolic 96–136; BP diastolic 47–75; PULSE 74–140; RESP 14–20; TEMP 36.3–38.9; O2SAT 92–100
--- NOTE | 2023-05-03 00:32 | P.PNCROSS_ITS ---
Event Note Event Note Event Note: Nursing staff called earlier in the night as patient was having chills and elev ated heart rate. The patient received a fluid bolus and stat labs were performed by the mid shift provider. The patient's labs were reviewed when nursing staff called me to inform me the patient was now spiking a fever of 102?. The patient's heart rate was 120 blood pressures were stable. Respiratory rate was 20. White count was low at 2.9 with a significant decrease compared to earlier in the day. UA with reflex was unremarkable except for 1+ esterase and trace ketones. Chest x-ray was personally reviewed demonstrated no acute process. EKG personally reviewed demonstrated tachycardic rhythm most likely sinus with ectopic beats. Given the patient's new fever in fact the patient meets sepsis criteria stat blood cultures were ordered. Given patient had recent GI procedure room worried about possible seeding from the GI tract and start antibiotics with Zosyn. Will also check COVID/flu PCR to rule out viral process given leukopenia. Given the patient's tachycardia, trace ketones in the urine and recent decreased oral intake will increase patient's IV fluids to 125 mL an hour. Will monitor for signs of acute intra-abdominal process. Will repeat CBC and monitor H&H closely given recent GI losses. Patient did receive potassium supplements earlier in the day. Will repeat electrolyte panel with a.m. labs. Patient was seen and examined after fever had resolved. Patient had some crackles at the right base that cleared with cough. Patient had hyperactive bowel sounds but just recently received bowel prep. Abdomen itself was nontender. Heart rate had improved down to 106. A no lower extremity wounds noted. No obvious signs of infection no erythema to extremities. 30 minute spent in critical care activities. Due to a high probability of clinically significant, life threatening deterioration, the patient required my highest level of preparedness to intervene emergently and I personally spent this critical care time directly and personally managing the patient. This critical care time included obtaining a history; examining the patient; pulse oximetry; ordering and review of studies; arranging urgent treatment with development of a management plan; evaluation of patient's response to treatment; frequent reassessment; and discussions with other providers. It was exclusive of separately billable procedures and treating other patients and teaching time. Please see Assessment and Plan section and the rest of the note for further information on patient assessment and treatment.
[2023-05-03] MEDS: SODIUM CHLORIDE 0.9% IV 1,000 ML 125 ML IV CONT ×2 (00:39→20:13)
[2023-05-03] MEDS: ACETAMINOPHEN 325 MG TABLET 650 MG PO ×2 (01:01→20:08)
[2023-05-03] MEDS: PIPERACILLN/TAZ 3.375GM/NS50ML 3.375 GM/50 ML BAG IVPB ×5 (01:02→23:06)
[2023-05-03 01:21] LABS: Influenza A QL RT-PCR Negative (Negative); Influenza B QL RT-PCR Negative (Negative); RSV RNA, RT-PCR Negative (Negative); SARS-CoV-2 RNA PCR Negative (Negative)
[2023-05-03 06:56] LABS: Basophils Percent Auto 0.3 % (0.2-1.2); Eosinophils Percent Auto 0.1 % (0-4.4); Hematocrit 21.6 % (42.0-52.0); Immature Granulocyte Absolute 0.13 K/mm3 (0.00-0.031); Immature Granulocyte Percent A 0.9 % (0-0.5); Lymphocytes Absolute Auto 0.88 K/mm3 (0.9-3.2); Lymphocytes Percent Auto 6.3 % (18.3-44.2); Mean Corpuscular HGB Conc 31.9 g/dl (32-36); Mean Corpuscular Hemoglobin 30.1 pg (26-34); Mean Corpuscular Volume 94.3 fl (80-100); Mean Platelet Volume 9.6 fl (7.4-10.4); Monocytes Absolute Auto 1.1 K/mm3 (0.1-0.6); Monocytes Percent Auto 7.6 % (2.6-8.5); Neutrophils Absolute Auto 11.7 K/mm3 (1.3-6.7); Neutrophils Percent Auto 84.8 % (45.5-73.1); Platelet Count Result 154 k/mm3 (150-375); Red Blood Count 2.29 M/mm3 (4.6-6.20); Red Cell Distribution Width 17.3 % (11.5-14.5); White Blood Count 13.9 K/mm3 (4.5-10.0)
[2023-05-03 07:00] LABS: Hemoglobin 6.9 g/dL (14.0-18.0)
[2023-05-03 07:08] LABS: Alanine Aminotransferase 12 U/L (6-50); Albumin Level 2.1 g/dL (3.5-5.1); Alkaline Phosphatase 61 U/L (38-126); Anion Gap 2 mmol/L (8-16); Aspartate Amino Transferase 22 U/L (17-59); Bilirubin,Total 0.3 mg/dL (0.2-1.3); Blood Urea Nitrogen 17 mg/dL (9-20); Calcium 7.4 mg/dL (8.4-10.2); Carbon Dioxide 21 mmol/L (22-30); Chloride 112 mmol/L (98-107); Creatine Kinase 65 U/L (55-170); Estimated CRCL calculation 49 ml/min; Estimated Glomerular Filt Rate > 60; Glucose 103 mg/dL (65-110); Potassium 3.3 mmol/L (3.4-5.0); Sodium 135 mmol/L (137-145)
[2023-05-03 07:21] LABS: Glucose Point of Care 109 mg/dl (65-105)
[2023-05-03 08:21] LABS: Hematocrit 20.7 % (42.0-52.0); Hemoglobin 6.9 g/dL (14.0-18.0)
[2023-05-03] MEDS: SODIUM CHLORIDE 0.9% IV 250 ML 30 ML IV CONT (08:54)
[2023-05-03] MEDS: levETIRAcetam 500 MG TABLET 1000 MG PO ×2 (08:59→20:07)
[2023-05-03] MEDS: ESCITALOPRAM OXALATE 5 MG TABLET PO (08:59)
[2023-05-03] MEDS: OPTI-GEN TAB 1 TABLET PO ×2 (08:59→18:08)
[2023-05-03] MEDS: TUBING, BLOOD PLUM PUMP TUBING 1 EACH XX ×2 (09:00→16:00)
[2023-05-03] MEDS: PANTOPRAZOLE SODIUM IV 40 MG VIAL IV PUSH (09:08)
[2023-05-03 11:44] LABS: Glucose Point of Care 111 mg/dl (65-105)
--- NOTE | 2023-05-03 12:35 | WPDANESPN ---
Anes - Prog Note Post-Op Date/Time: 05/03/23 12:35 Cardiovascular status: normal Respiratory status: normal Airway patency: baseline Mental status: baseline Post-Op hydration status: normal Vital Signs: Last Vital Signs Temp 37.1 C 05/03/23 11:13 Pulse 85 05/03/23 11:13 Resp 17 05/03/23 11:13 BP 109/58 L 05/03/23 11:13 Pulse Ox 99 05/03/23 11:13 O2 Del Method Room Air 05/02/23 20:25 O2 Flow Rate 3 05/02/23 17:15 Pain Score (VAS): 03/29 I/O: Intake & Output 05/02/23 05/03/23 05/03/23 23:59 07:59 15:59 Intake Total 1950 727.9 590 Output Total 450 Balance 1500 727.9 590 Laboratory Tests 05/03/23 08:03 05/03/23 06:01 04/30/23 05/02/23 05/02/23 14:57 15:20 19:51 WBC RBC Hgb Hct MCV MCH MCHC RDW Plt Count MPV Immature Gran % (Auto) Neut % (Auto) Lymph % (Auto) [place] % (Auto) Eos % (Auto) Baso % (Auto) Lymph # (Auto) [place] # (Auto) Eos # (Auto) Baso # (Auto) Abs Immat Gran (auto) Absolute Neuts (auto) Absolute Nucleated RBC Nucleated RBC % Haptoglobin PT INR APTT Fibrinogen VBG pH VBG pCO2 VBG pO2 VBG HCO3 O2 Delivery Device O2 Liters/Min FiO2 Sodium Potassium Chloride Carbon Dioxide Anion Gap BUN Creatinine Estim Creat Clear Calc Estimated GFR Glucose POC Capillary Glucose 91 115 H Calcium Total Bilirubin AST ALT Alkaline Phosphatase Lactate Dehydrogenase Total Creatine Kinase Total Protein Albumin Urine Color Urine Appearance Urine pH Ur Specific [place] Urine Protein Urine Glucose (UA) Urine Ketones Ur Blood (Man) Urine Nitrate Urine Bilirubin Urine Urobilinogen Ur Leukocyte Esterase Add Ur Microanalysis Urine RBC Urine WBC Ur Squamous Epith Cells Urine Bacteria Urine Casts Influenza A (RT-PCR) Influenza B (RT-PCR) RSV (RT-PCR) SARS-CoV-2 RNA (RT-PCR) Blood Type A Positive Antibody Screen Negative AMBER, IgG Interpret AMBER, Poly Interpret AMBER, Complement Interp Indirect Antiglob Test Crossmatch See Detail 05/02/23 05/02/23 05/02/23 20:27 20:30 20:53 WBC 2.9 L RBC 3.09 L Hgb 9.3 L Hct 28.3 L MCV 91.6 MCH 30.1 MCHC 32.9 RDW 16.8 H Plt Count 181 MPV 9.1 Immature Gran % (Auto) 0.3 Neut % (Auto) 88.7 H Lymph % (Auto) 10.1 L [place] % (Auto) 0.3 L Eos % (Auto) 0.3 Baso % (Auto) 0.3 Lymph # (Auto) 0.29 L [place] # (Auto) 0.0 L Eos # (Auto) 0.0 Baso # (Auto) 0.0 Abs Immat Gran (auto) 0.01 Absolute Neuts (auto) 2.5 Absolute Nucleated RBC 0.000 Nucleated RBC % 0.0 Haptoglobin Pending PT 14.9 H INR 1.1 APTT 24.5 Fibrinogen 241 VBG pH 7.382 VBG pCO2 35.9 L VBG pO2 < 27.0 L VBG HCO3 20.9 L O2 Delivery Device Room air O2 Liters/Min Not Reportable FiO2 21 Sodium 136 L Potassium 3.3 L Chloride 107 Carbon Dioxide 22 Anion Gap 7 L BUN 16 Creatinine 0.80 Estim Creat Clear Calc 55 Estimated GFR > 60 Glucose 104 POC Capillary Glucose Calcium 8.5 Total Bilirubin 0.7 AST 28 ALT 18 Alkaline Phosphatase 92 Lactate Dehydrogenase 118 L Total Creatine Kinase 42 L Total Protein 5.0 L Albumin 3.2 L Urine Color Yellow Urine Appearance Clear Urine pH 5.0 Ur Specific [place] 1.023 Urine Protein Negative Urine Glucose (UA) Negative Urine Ketones Trace H Ur Blood (Man) Negative Urine Nitrate Negative Urine Bilirubin Negative Urine Urobilinogen 0.2 Ur Leukocyte Esterase 1+ H Add Ur Microanalysis Reviewed Urine RBC 0-2 Urine WBC 0-5 Ur Squamous Epith Cells None seen Urine Bacteria None seen Urine Casts 0-2 Influenza A (RT-PCR) Influenza B (RT-PCR) RS
--- NOTE | 2023-05-03 13:31 | WPDGIPROGNO ---
Progress Note: A&P Assessment and Plan (1) Diverticular hemorrhage: Code(s): K57.31 - Diverticulosis of large intestine without perforation or abscess with bleeding Status: Acute Assessment and Plan: found source of active oozing from a diverticula in sigmoid, this was controlled with epinephrine no more bleeding reported monitor closely he is eating (2) Acute blood loss anemia: Code(s): D62 - Acute posthemorrhagic anemia Status: Acute Assessment and Plan: from active diverticula bleed treated trend h/h and keep hgb >7 (3) Lower GI bleed: Code(s): K92.2 - Gastrointestinal hemorrhage, unspecified Status: Acute (4) Sepsis: Code(s): A41.9 - Sepsis, unspecified organism Status: Acute Assessment and Plan: had fever and chills, started on abx (5) Atherosclerotic heart disease of [place] coronary artery with unspecified angina pectoris: Qualifiers: [place] vs. transplanted heart: [place] heart Qualified Code(s): I25.119 - Atherosclerotic heart disease of [place] coronary artery with unspecified angina pectoris Code(s): I25.119 - Atherosclerotic heart disease of [place] coronary artery with unspecified angina pectoris Status: Acute Subjective Date/time seen: 05/03/23 13:31 Interval history: egd normal, colonoscopy showed active bleeding with oozing from sigmoid diverticula, treated and controlled after epi injection after scope he had chills and treated by hospitalist, CXR normal and now on abx he denies any more bleeding and he is comfortable now Review of Systems Review of Systems: All systems reviewed & are unremarkable except as noted in HPI and below Exam Const: General: comfortable and no acute distress Other: Frail but pleasant HENMT: Face/Nose/Sinus: Normal nares present Eyes: General: appearance normal, both eyes and all related structures Sclera: sclerae normal Pupils: Equal, round and reactive pupils present Neck: Neck: supple Resp: Effort & Inspection: normal respiratory effort Auscultation: clear to auscultation bilaterally Cardio: Rate: regular rate Rhythm: regular rhythm GI: Inspection: non-distended GI Palp: Yes Soft to palpation and No Tenderness to palpation present (GI) Auscultation: normal bowel sounds Skin: General skin exam: normal color Neuro: Cranial nerves: Yes Equal, round and reactive pupils present Speech: normal speech Motor exam (neuro): 06/21 motor strength present throughout Extrem: General: normal to inspection and no edema Psych: Mental Status: mental status grossly normal Affect: normal affect Other: good insight and judgment, pleasant. Objective Data Vital Signs Vital Signs: Vital Signs - 24 hr 05/02/23 14:18 05/02/23 14:34 05/02/23 15:13 Temperature 97.8 F 97.7 F 98.4 F Pulse Rate 96 99 102 H Respiratory Rate 16 18 18 Blood Pressure 115/62 117/69 117/62 Pulse Oximetry 98 98 99 Oxygen Delivery Room Air Oxygen Flow Rate 05/02/23 15:35 05/02/23 16:55 05/02/23 16:39 Temperature 98.3 F 97.3 F L 98.1 F Pulse Rate 107 H 58 L 70 Respiratory Rate 18 20 20 Blood Pressure 114/50 L 107/57 L 102/55 L Pulse Oximetry 100 100 100 Oxygen Delivery Nasal Cannula Oxygen Flow Rate 3 05/02/23 17:05 05/02/23 17:15 05/02/23 17:21 Temperature Pulse Rate 57 L 67 70 Respiratory Rate 20 24 H 19 Blood Pressure 112/56 L 122/67 133/59 L Pulse Oximetry 100 100 100 Oxygen Delivery Nasal Cannula Nasal Cannula Room Air Oxygen Flow Rate 3 3 05/02/23 20:01 05/02/23 20:44 05/02/23 20:00 Temperature 98.1 F 99.5 F Pulse Rate 140 H 122 H 137 H Respiratory Rate 20 20 Blood Pressure 140/70 125/52 L Pulse Oximetry 92 94 Oxygen Delivery Oxygen Flow Rate 05/02/23 20:25 05/03/23 00:00 05/03/23 00:00 Temperature 102.0 F H Pulse Rate 140 H 120 H Respiratory Rate 20 Blood Pressure 120/57 L Pulse Oximetry 94 92 Oxygen Delivery Room Air
--- NOTE | 2023-05-03 14:42 | PM.IMPN ---
Progress Note: A&P Assessment and Plan (1) Hematochezia: Code(s): K92.1 - Melena Status: Acute (2) History of open reduction and internal fixation (ORIF) procedure: Code(s): Z98.890 - Other specified postprocedural states Status: Acute (3) Weakness: Code(s): R53.1 - Weakness Status: Acute (4) Anemia: Qualifiers: Anemia type: other cause Other causes of anemia: acute posthemorrhagic Qualified Code(s): D62 - Acute posthemorrhagic anemia Code(s): D64.9 - Anemia, unspecified Status: Acute Plan 82-year-old male with history of anemia, GERD, epilepsy, hypertension, CAD status post prior stenting, general anxiety disorder, 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 On admission is hemoglobin 8.2. Admitted for GI workup on 04/30/2023 Acute blood loss anemia/hematochezia/lower GI bleed -he has a history of GI bleed approximately a decade ago. Received blood transfusions. His last colonoscopy was also a very long time ago and he does not remember the results although was total was normal. -hemoglobin on admission 8.2 dropping to 6.9 and April 30 causing a near syncope episode where nurse had to lower him to the floor and he had another bloody bowel movement. Soft blood pressures. -transfuse 2 units PRBC and trend hemoglobin. Goal hemoglobin greater than 8 g/dL. Bed rest. NPO. Orthostatics Q shift. Normal saline at 83 cc/hour. Telemetry -GI consulted. Pending nuclear medicine GI bleed scan 05/02/23: Hb 7.6; EGD and colonoscopy slated for today. will transfuse 2U of PRBC; EGD normal, colonoscopy showed active bleeding with oozing from sigmoid diverticula, treated and controlled after epi injection 05/03/23: 6.9; Transfuse 2U pRBC Chronic anemia -normocytic. 01/2023 iron level 16 and ferritin 190 -treat above 3/16/24: 6.9; Transfuse 2U pRBC History of hypertension -hold home medications. Blood pressure on the lower side History of GERD -continue Protonix History of epilepsy -Keppra changed to IV while p.o. Urf-mgfgsdg-nxnxsvppf diabetes mellitus -Accu-Cheks q.6 hours. Hypoglycemia protocol History of CAD status post prior stenting -continue atorvastatin and aspirin when taking p.o. again. FEN: Maintenance fluids with normal saline at 83 cc/hour. NPO. GI prophylaxis: Protonix IV DVT prophylaxis: SCDs only Lines: Peripheral IV Code Status: Full code Dispo: Guarded medical floor with telemetry Time Spent With Patient Time with patient: 25 - 35 minutes Subjective Date/time seen: 05/03/23 14:42 Interval history: 05/02/23: EGD normal, colonoscopy showed active bleeding with oozing from sigmoid diverticula, treated and controlled after epi injection 05/03/23; Seen and examined; not in painful or respiratory distress. No dark stools Review of Systems Review of Systems: All systems reviewed & are unremarkable except as noted in HPI and below (Subjective) Constitutional: Constitutional: Reports fatigue Eyes: Eyes: Reports no additional eye complaints and Denies photophobia ENT: Denies dysphagia and Denies epistaxis Cardiovascular: Cardiovascular: Reports no additional cardiovascular complaints, Reports palpitations and Denies dyspnea Respiratory: Respiratory: Denies hemoptysis and Denies dyspnea Gastrointestinal: Gastrointestinal: Reports hematochezia, Denies dysphagia and Reports diarrhea Genitourinary: Genitourinary: Denies urinary frequency and Denies urinary incontinence Musculoskeletal: Musculoskeletal: Reports no additional musculoskeletal complaints and Reports myalgias Neurologic: Reports system reviewed and no additional compla
[2023-05-03] MEDS: SODIUM CHLORIDE 0.9% IV 250 ML 30 ML (16:00)
[2023-05-03 16:58] LABS: Glucose Point of Care 120 mg/dl (65-105)
[2023-05-03 20:46] LABS: Glucose Point of Care 117 mg/dl (65-105)
[2023-05-03 21:20] LABS: Hematocrit 27.1 % (42.0-52.0)
[2023-05-04] VITALS (7 sets, daily range): BP systolic 102–131; BP diastolic 52–82; PULSE 50–96; RESP 16–18; TEMP 36.1–36.6; O2SAT 98–100
[2023-05-04 00:53] LABS: Glucose Point of Care 98 mg/dl (65-105)
[2023-05-04] MEDS: SODIUM CHLORIDE 0.9% IV 1,000 ML 125 ML IV CONT ×4 (05:00→23:25)
[2023-05-04] MEDS: PIPERACILLN/TAZ 3.375GM/NS50ML 3.375 GM/50 ML BAG IVPB ×4 (05:00→23:24)
[2023-05-04 06:36] LABS: Basophils Percent Auto 0.4 % (0.2-1.2); Eosinophils Absolute Auto 0.4 K/mm3 (0-0.3); Eosinophils Percent Auto 4.7 % (0-4.4); Hematocrit 28.3 % (42.0-52.0); Hemoglobin 9.2 g/dL (14.0-18.0); Immature Granulocyte Absolute 0.05 K/mm3 (0.00-0.031); Immature Granulocyte Percent A 0.6 % (0-0.5); Lymphocytes Absolute Auto 0.71 K/mm3 (0.9-3.2); Mean Corpuscular HGB Conc 32.5 g/dl (32-36); Mean Corpuscular Hemoglobin 30.4 pg (26-34); Mean Corpuscular Volume 93.4 fl (80-100); Mean Platelet Volume 9.3 fl (7.4-10.4); Monocytes Absolute Auto 0.7 K/mm3 (0.1-0.6); Monocytes Percent Auto 8.4 % (2.6-8.5); Neutrophils Percent Auto 76.9 % (45.5-73.1); Platelet Count Result 134 k/mm3 (150-375); Red Blood Count 3.03 M/mm3 (4.6-6.20); Red Cell Distribution Width 16.5 % (11.5-14.5); White Blood Count 7.9 K/mm3 (4.5-10.0)
[2023-05-04 06:57] LABS: Alanine Aminotransferase 12 U/L (6-50); Albumin Level 2.2 g/dL (3.5-5.1); Alkaline Phosphatase 62 U/L (38-126); Anion Gap 1 mmol/L (8-16); Aspartate Amino Transferase 23 U/L (17-59); Bilirubin,Total 0.3 mg/dL (0.2-1.3); Blood Urea Nitrogen 15 mg/dL (9-20); Calcium 7.7 mg/dL (8.4-10.2); Carbon Dioxide 22 mmol/L (22-30); Chloride 111 mmol/L (98-107); Estimated CRCL calculation 62 ml/min; Estimated Glomerular Filt Rate > 60; Glucose 92 mg/dL (65-110); Potassium 3.5 mmol/L (3.4-5.0); Sodium 134 mmol/L (137-145)
[2023-05-04 07:39] LABS: Glucose Point of Care 84 mg/dl (65-105)
[2023-05-04] MEDS: OPTI-GEN TAB 1 TABLET PO ×2 (08:37→17:45)
[2023-05-04] MEDS: ESCITALOPRAM OXALATE 5 MG TABLET PO (08:37)
[2023-05-04] MEDS: levETIRAcetam 500 MG TABLET 1000 MG PO ×2 (08:37→19:54)
[2023-05-04] MEDS: PANTOPRAZOLE SODIUM IV 40 MG VIAL IV PUSH (08:37)
[2023-05-04 11:51] LABS: Glucose Point of Care 91 mg/dl (65-105)
--- NOTE | 2023-05-04 13:39 | WPDGIPROGNO ---
Progress Note: A&P Assessment and Plan (1) Diverticular hemorrhage: Code(s): K57.31 - Diverticulosis of large intestine without perforation or abscess with bleeding Status: Acute Assessment and Plan: found source of bleeding- active oozing from a diverticula in sigmoid, this was controlled with epinephrine no more bleeding reported and h/h stable at 9 after blood transfusion monitor closely he is eating (2) Acute blood loss anemia: Code(s): D62 - Acute posthemorrhagic anemia Status: Acute Assessment and Plan: from active diverticula bleed treated h/h now is stable (3) Lower GI bleed: Code(s): K92.2 - Gastrointestinal hemorrhage, unspecified Status: Acute Assessment and Plan: from diverticular bleeding (4) Sepsis: Code(s): A41.9 - Sepsis, unspecified organism Status: Acute Assessment and Plan: wbc is normal, culture ngtd empirically on abx (5) Atherosclerotic heart disease of [place] coronary artery with unspecified angina pectoris: Qualifiers: [place] vs. transplanted heart: [place] heart Qualified Code(s): I25.119 - Atherosclerotic heart disease of [place] coronary artery with unspecified angina pectoris Code(s): I25.119 - Atherosclerotic heart disease of [place] coronary artery with unspecified angina pectoris Status: Acute Subjective Date/time seen: 05/04/23 13:39 Interval history: no more bleeding, he is comfortable and has not required more blood transfusion family at bedside Review of Systems Review of Systems: All systems reviewed & are unremarkable except as noted in HPI and below Exam Const: General: comfortable and no acute distress Other: Frail, pleasant good spirits HENMT: Face/Nose/Sinus: Normal nares present Eyes: General: appearance normal, both eyes and all related structures Sclera: sclerae normal Pupils: Equal, round and reactive pupils present Neck: Neck: supple Resp: Effort & Inspection: normal respiratory effort Auscultation: clear to auscultation bilaterally Cardio: Rate: regular rate Rhythm: regular rhythm GI: Inspection: non-distended GI Palp: Yes Soft to palpation and No Tenderness to palpation present (GI) Auscultation: normal bowel sounds Skin: General skin exam: normal color Neuro: Cranial nerves: Yes Equal, round and reactive pupils present Speech: normal speech Motor exam (neuro): 5/5 motor strength present throughout Extrem: General: normal to inspection and no edema Psych: Mental Status: mental status grossly normal Affect: normal affect Other: good insight and judgment, pleasant. Objective Data Vital Signs Vital Signs: Vital Signs - 24 hr 05/03/23 15:51 05/03/23 15:53 05/03/23 16:07 Temperature 97.7 F 97.5 F L 97.3 F L Pulse Rate 79 81 79 Respiratory Rate 15 20 17 Blood Pressure 111/53 L 110/53 L 107/57 L Pulse Oximetry 99 98 100 Oxygen Delivery 05/03/23 17:07 05/03/23 18:55 05/03/23 18:56 Temperature 97.3 F L Pulse Rate 82 Respiratory Rate 18 Blood Pressure 126/60 127/64 135/75 Pulse Oximetry 100 Oxygen Delivery 05/03/23 16:00 05/03/23 20:00 05/03/23 20:00 Temperature 97.5 F L Pulse Rate 83 76 Respiratory Rate 18 Blood Pressure 116/58 L Pulse Oximetry 100 Oxygen Delivery 05/03/23 20:05 05/03/23 20:10 05/03/23 20:00 Temperature Pulse Rate 83 89 98 Respiratory Rate Blood Pressure 113/72 117/72 Pulse Oximetry 100 95 Oxygen Delivery 05/03/23 19:45 05/04/23 00:00 05/04/23 04:00 Temperature 98.9 F 97.5 F L 96.9 F L Pulse Rate 84 88 65 Respiratory Rate 20 16 16 Blood Pressure 136/74 125/67 103/59 L Pulse Oximetry 98 100 99 Oxygen Delivery 05/04/23 00:00 05/04/23 04:00 05/04/23 08:00 Temperature 97.5 F L Pulse Rate 59 L 50 L 81 Respiratory Rate 18 Blood Pressure 102/52 L Pulse Oximetry 98 Oxygen Delivery 05/04/23 08:00 05/04/23 08:00 05/04/23
--- NOTE | 2023-05-04 13:46 | PM.IMPN ---
Progress Note: A&P Assessment and Plan (1) Hematochezia: Code(s): K92.1 - Melena Status: Acute (2) History of open reduction and internal fixation (ORIF) procedure: Code(s): Z98.890 - Other specified postprocedural states Status: Acute (3) Weakness: Code(s): R53.1 - Weakness Status: Acute (4) Anemia: Qualifiers: Anemia type: other cause Other causes of anemia: acute posthemorrhagic Qualified Code(s): D62 - Acute posthemorrhagic anemia Code(s): D64.9 - Anemia, unspecified Status: Acute Plan 82-year-old male with history of anemia, GERD, epilepsy, hypertension, CAD status post prior stenting, general anxiety disorder, 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 On admission is hemoglobin 8.2. Admitted for GI workup on 04/30/2023 Acute blood loss anemia/hematochezia/lower GI bleed -he has a history of GI bleed approximately a decade ago. Received blood transfusions. His last colonoscopy was also a very long time ago and he does not remember the results although was total was normal. -hemoglobin on admission 8.2 dropping to 6.9 and April 30 causing a near syncope episode where nurse had to lower him to the floor and he had another bloody bowel movement. Soft blood pressures. -transfuse 2 units PRBC and trend hemoglobin. Goal hemoglobin greater than 8 g/dL. Bed rest. NPO. Orthostatics Q shift. Normal saline at 83 cc/hour. Telemetry -GI consulted. Pending nuclear medicine GI bleed scan 05/02/23: Hb 7.6; EGD and colonoscopy slated for today. will transfuse 2U of PRBC; EGD normal, colonoscopy showed active bleeding with oozing from sigmoid diverticula, treated and controlled after epi injection 05/03/23: 6.9; Transfuse 2U pRBC 05/04/23: Hb 9.2. Will monitor Hb Chronic anemia -normocytic. 01/2023 iron level 16 and ferritin 190 -treat above 05/03/23: 6.9; Transfuse 2U pRBC History of hypertension -hold home medications. Blood pressure on the lower side History of GERD -continue Protonix History of epilepsy -Keppra changed to IV while p.o. Sjx-ukqtlvz-jgisuqbyb diabetes mellitus -Accu-Cheks q.6 hours. Hypoglycemia protocol History of CAD status post prior stenting -continue atorvastatin and aspirin when taking p.o. again. FEN: Maintenance fluids with normal saline at 83 cc/hour. NPO. GI prophylaxis: Protonix IV DVT prophylaxis: SCDs only Lines: Peripheral IV Code Status: Full code Dispo: June DC soon Time Spent With Patient Time with patient: 25 - 35 minutes Subjective Date/time seen: 05/04/23 13:46 Interval history: Seen and examined; being managed for LGIB; Hb stable; symptoms improved. Not in painful/respiratory distress. Last BM was about 2 days ago. Review of Systems Review of Systems: All systems reviewed & are unremarkable except as noted in HPI and below (Subjective) Constitutional: Constitutional: Reports fatigue Eyes: Eyes: Reports no additional eye complaints and Denies photophobia ENT: Denies dysphagia and Denies epistaxis Cardiovascular: Cardiovascular: Reports no additional cardiovascular complaints, Reports palpitations and Denies dyspnea Respiratory: Respiratory: Denies hemoptysis and Denies dyspnea Gastrointestinal: Gastrointestinal: Reports hematochezia, Denies dysphagia and Reports diarrhea Genitourinary: Genitourinary: Denies urinary frequency and Denies urinary incontinence Musculoskeletal: Musculoskeletal: Reports no additional musculoskeletal complaints and Reports myalgias Neurologic: Reports system reviewed and no additional complaints, except as documented and Denies Abnormal speech present Psychiatri
[2023-05-04] MEDS: ACETAMINOPHEN 325 MG TABLET 650 MG PO (14:57)
[2023-05-04 16:57] LABS: Glucose Point of Care 125 mg/dl (65-105)
[2023-05-05] VITALS (8 sets, daily range): BP systolic 120–155; BP diastolic 66–89; PULSE 67–80; RESP 18–20; TEMP 36.2–36.6; O2SAT 98–100
[2023-05-05] MEDS: PIPERACILLN/TAZ 3.375GM/NS50ML 3.375 GM/50 ML BAG IVPB (05:12)
[2023-05-05 06:49] LABS: Basophils Percent Auto 0.4 % (0.2-1.2); Eosinophils Absolute Auto 0.3 K/mm3 (0-0.3); Hematocrit 29.7 % (42.0-52.0); Hemoglobin 9.6 g/dL (14.0-18.0); Immature Granulocyte Absolute 0.03 K/mm3 (0.00-0.031); Immature Granulocyte Percent A 0.4 % (0-0.5); Lymphocytes Absolute Auto 0.72 K/mm3 (0.9-3.2); Lymphocytes Percent Auto 10.6 % (18.3-44.2); Mean Corpuscular HGB Conc 32.3 g/dl (32-36); Mean Corpuscular Hemoglobin 30.3 pg (26-34); Mean Corpuscular Volume 93.7 fl (80-100); Monocytes Absolute Auto 0.7 K/mm3 (0.1-0.6); Monocytes Percent Auto 9.9 % (2.6-8.5); Neutrophils Percent Auto 73.7 % (45.5-73.1); Platelet Count Result 171 k/mm3 (150-375); Red Blood Count 3.17 M/mm3 (4.6-6.20); Red Cell Distribution Width 16.2 % (11.5-14.5); White Blood Count 6.8 K/mm3 (4.5-10.0)
[2023-05-05 06:59] LABS: Alanine Aminotransferase 13 U/L (6-50); Albumin Level 2.4 g/dL (3.5-5.1); Alkaline Phosphatase 63 U/L (38-126); Anion Gap 4 mmol/L (8-16); Aspartate Amino Transferase 24 U/L (17-59); Bilirubin,Total 0.3 mg/dL (0.2-1.3); Blood Urea Nitrogen 8 mg/dL (9-20); Calcium 7.8 mg/dL (8.4-10.2); Carbon Dioxide 22 mmol/L (22-30); Chloride 109 mmol/L (98-107); Estimated CRCL calculation 72 ml/min; Estimated Glomerular Filt Rate > 60; Glucose 81 mg/dL (65-110); Potassium 3.3 mmol/L (3.4-5.0); Sodium 135 mmol/L (137-145)
--- NOTE | 2023-05-05 08:50 | PCOTNOTE ---
Per RN, Patient not to be seen at this time. Patient having an increase in heart rate in a sitting/resting position. Will try back at a later time.
[2023-05-05] MEDS: ESCITALOPRAM OXALATE 5 MG TABLET PO (09:17)
[2023-05-05] MEDS: PANTOPRAZOLE SODIUM IV 40 MG VIAL IV PUSH (09:17)
[2023-05-05] MEDS: OPTI-GEN TAB 1 TABLET PO (09:17)
[2023-05-05] MEDS: levETIRAcetam 500 MG TABLET 1000 MG PO (09:17)
[2023-05-05] MEDS: SODIUM CHLORIDE 0.9% IV 1,000 ML 125 ML IV CONT (09:18)
[2023-05-05 11:08] LABS: Glucose Point of Care 118 mg/dl (65-105)
[2023-05-05] MEDS: cefTRIAXone 2 GM/NS 100 ML 2 GM/100 ML BAG IVPB (13:00)
[2023-05-05 16:12] LABS: Glucose Point of Care 88 mg/dl (65-105)
--- NOTE | 2023-05-05 16:22 | PM.DS ---
DS: Admitting Diagnosis Discharge Date 05/05/23 Admitting Diagnosis 1. Lower GIB 2. Acute blood loss anemia DS: Discharge Diagnosis Discharge Diagnosis (1) Hematochezia: Code(s): K92.1 - Melena Status: Acute (2) History of open reduction and internal fixation (ORIF) procedure: Code(s): Z98.890 - Other specified postprocedural states Status: Acute (3) Weakness: Code(s): R53.1 - Weakness Status: Acute (4) Anemia: Qualifiers: Anemia type: other cause Other causes of anemia: acute posthemorrhagic Qualified Code(s): D62 - Acute posthemorrhagic anemia Code(s): D64.9 - Anemia, unspecified Status: Acute Plan 82-year-old male with history of anemia, GERD, epilepsy, hypertension, CAD status post prior stenting, general anxiety disorder, 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 On admission is hemoglobin 8.2. Admitted for GI workup on 04/30/2023 Acute blood loss anemia/hematochezia/lower GI bleed -he has a history of GI bleed approximately a decade ago. Received blood transfusions. His last colonoscopy was also a very long time ago and he does not remember the results although was total was normal. -hemoglobin on admission 8.2 dropping to 6.9 and April 30 causing a near syncope episode where nurse had to lower him to the floor and he had another bloody bowel movement. Soft blood pressures. -transfuse 2 units PRBC and trend hemoglobin. Goal hemoglobin greater than 8 g/dL. Bed rest. NPO. Orthostatics Q shift. Normal saline at 83 cc/hour. Telemetry -GI consulted. Pending nuclear medicine GI bleed scan 05/02/23: Hb 7.6; EGD and colonoscopy slated for today. will transfuse 2U of PRBC; EGD normal, colonoscopy showed active bleeding with oozing from sigmoid diverticula, treated and controlled after epi injection 05/03/23: 6.9; Transfuse 2U pRBC 05/04/23: Hb 9.2. Will monitor Hb 05/06/23: Hb 9.6; will DC home today Chronic anemia -normocytic. 01/2023 iron level 16 and ferritin 190 -treat above 05/03/23: 6.9; Transfuse 2U pRBC 05/06/23: Hb 9.6 after multiple transfusions. History of hypertension. -hold home medications. Blood pressure on the lower side History of GERD. -continue Protonix History of epilepsy. -Keppra changed to IV while p.o. Gvp-drojvfm-pwvkouswk diabetes mellitus. -Accu-Cheks q.6 hours. Hypoglycemia protocol History of CAD status post prior stenting. -continue atorvastatin and aspirin when taking p.o. again. FEN: Maintenance fluids with normal saline at 83 cc/hour. NPO. GI prophylaxis: Protonix IV DVT prophylaxis: SCDs only Lines: Peripheral IV Code Status: Full code Dispo: June DC soon DS: Summary Hospital Course Reason for hospitalization: 1. Lower GIB 2. 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 Patient presents here for further evaluation of dark red blood per rectum that has been ongoing for the past few days.? Patient first noticed this on Friday, 04/27.? On average having 2 bloody stools per day. Stools were loose - new, also started Friday.? Reported some intermittent abdominal discomfort secondary to gas pains.? No nausea or vomiting.? No fever, has chills intermittently for the past several years. Denies any current anticoagulation medications. Last GI bleed was 10-15 years ago. Did not have colonoscopy done then but requir
--- NOTE | 2023-05-05 16:32 | WPDGIPROGNO ---
Progress Note: A&P Assessment and Plan (1) Diverticular hemorrhage: Code(s): K57.31 - Diverticulosis of large intestine without perforation or abscess with bleeding Status: Acute Assessment and Plan: found source of bleeding- active oozing from a diverticula in sigmoid, this was controlled with epinephrine no more bleeding reported and h/h stable he can go home (2) Acute blood loss anemia: Code(s): D62 - Acute posthemorrhagic anemia Status: Acute Assessment and Plan: from active diverticula bleed treated h/h now is stable (3) Lower GI bleed: Code(s): K92.2 - Gastrointestinal hemorrhage, unspecified Status: Acute Assessment and Plan: from diverticular bleeding Subjective Date/time seen: 05/05/23 16:32 Interval history: no more signs of bleeding Review of Systems Review of Systems: All systems reviewed & are unremarkable except as noted in HPI and below Exam Const: General: comfortable and no acute distress Other: Frail, pleasant good spirits HENMT: Face/Nose/Sinus: Normal nares present Eyes: General: appearance normal, both eyes and all related structures Sclera: sclerae normal Pupils: Equal, round and reactive pupils present Neck: Neck: supple Resp: Effort & Inspection: normal respiratory effort Auscultation: clear to auscultation bilaterally Cardio: Rate: regular rate Rhythm: regular rhythm GI: Inspection: non-distended GI Palp: Yes Soft to palpation and No Tenderness to palpation present (GI) Auscultation: normal bowel sounds Skin: General skin exam: normal color Neuro: Cranial nerves: Yes Equal, round and reactive pupils present Speech: normal speech Motor exam (neuro): 5/5 motor strength present throughout Extrem: General: normal to inspection and no edema Psych: Mental Status: mental status grossly normal Affect: normal affect Other: good insight and judgment, pleasant. Objective Data Vital Signs Vital Signs: Vital Signs - 24 hr 05/04/23 20:00 05/05/23 00:00 05/05/23 04:00 Temperature 97.6 F 97.8 F 97.8 F Pulse Rate 66 73 68 Respiratory Rate 18 20 20 Blood Pressure 131/69 128/69 127/66 Pulse Oximetry 100 99 99 Oxygen Delivery 05/05/23 00:00 05/05/23 04:00 05/05/23 07:53 Temperature 97.8 F Pulse Rate 72 72 67 Respiratory Rate 18 Blood Pressure 120/70 Pulse Oximetry 98 Oxygen Delivery 05/05/23 07:54 05/05/23 07:54 05/05/23 07:54 Temperature 97.8 F Pulse Rate 67 Respiratory Rate 18 Blood Pressure 120/70 135/89 134/73 Pulse Oximetry 98 Oxygen Delivery 05/05/23 08:45 05/05/23 11:50 05/05/23 12:00 Temperature 97.2 F L Pulse Rate 77 69 Respiratory Rate 18 Blood Pressure 135/73 Pulse Oximetry 100 Oxygen Delivery Room Air 05/05/23 08:00 05/05/23 16:00 05/05/23 16:00 Temperature 97.3 F L Pulse Rate 69 79 80 Respiratory Rate 18 18 Blood Pressure 155/80 H Pulse Oximetry 100 100 Oxygen Delivery Room Air Intake/Output Intake/Output: Intake & Output 05/02/23 05/03/23 05/04/23 05/05/23 23:59 23:59 23:59 23:59 Intake Total 3398.6 3279.9 4222.1 1562 Output Total 1025 400 800 370 Balance 2373.6 2879.9 3422.1 1192 Meds/Results Medications: Active Medications Generic Name Dose Route Start Last Admin Trade Name Freq PRN Reason Stop Dose Admin Acetaminophen 500 mg 04/30/23 22:55 05/01/23 10:24 Acetaminophen 500 Mg Tablet PO Not Given Q12HR [facility] Acetaminophen 650 mg 05/03/23 00:29 05/04/23 14:57 Acetaminophen 325 Mg Tablet PO 650 mg Q4H PRN Administration Mild Pain (1-3) or Fever Ascorbic Acid 250 mg 05/01/23 09:00 05/01/23 10:24 Ascorbic Acid 250 Mg Tablet PO Not Given DAILY [facility] Atorvastatin Calcium 40 mg 05/01/23 09:00 05/01/23 10:24 Atorvastatin 40 Mg Tablet PO Not Given DAILY [facility] Dextrose 12.5 gm 05/01/23 12:28 Dextrose 50% 25 Gm/50 Ml Syringe IV PUSH PRN PRN
[2023-05-07 22:19] LABS: Haptoglobin 174 mg/dL (43-212)
== END 2023-05-05 18:15 | disposition home health service (06) | DRG 871 ==
LOC: ANHED 17:37 → ANH3MEDSUR 17:44
PROVIDERS: Internal Medicine; Internal Medicine Gastroenterology; Student in an Organized Health Care Education/Training Program; Admitting Provider General Practice; Emergency Provider Emergency Medicine; PCP Family Medicine; Visit Provider Internal Medicine
PROC: 0DJ08ZZ Inspection of Upper Intestinal Tract, Via Natural or Artificial Opening Endoscopic (ICD-10-PCS; CPT 43235; principal; 2023-05-02 17:00)
DX: A41.9 Sepsis, unspecified organism (principal); K57.31 Diverticulosis of large intestine without perforation or abscess with bleeding; D62 Acute posthemorrhagic anemia; E87.1 Hypo-osmolality and hyponatremia; K92.1 Melena; K63.5 Polyp of colon; D64.9 Anemia, unspecified; E78.5 Hyperlipidemia, unspecified; E11.9 Type 2 diabetes mellitus without complications; F41.1 Generalized anxiety disorder; G40.909 Epilepsy, unspecified, not intractable, without status epilepticus; I10 Essential (primary) hypertension; I25.10 Atherosclerotic heart disease of native coronary artery without angina pectoris; I25.5 Ischemic cardiomyopathy; K21.9 Gastro-esophageal reflux disease without esophagitis; Z86.73 Personal history of transient ischemic attack (TIA), and cerebral infarction without residual deficits; Z87.891 Personal history of nicotine dependence; Z20.822 Contact with and (suspected) exposure to COVID-19; Z96.653 Presence of artificial knee joint, bilateral; Z98.49 Cataract extraction status, unspecified eye; Z95.5 Presence of coronary angioplasty implant and graft; Z90.49 Acquired absence of other specified parts of digestive tract; Z79.82 Long term (current) use of aspirin; Z79.02 Long term (current) use of antithrombotics/antiplatelets
CPT/HCPCS: 36415; 36430; 71045; 74177; 78278; 80048; 80053; 82550; 82803; 82948; 83010; 83615; 83735; 84439; 84443; 84480; 85014; 85018; 85025; 85027; 85384; 85610; 85730; 86850; 86880; 86900; 86901; 86923; 87040; 87637; 88305; 93005; 96361; 96374; 97161; 97166; 99285; A9270; A9560; C9113; G0378; J0171; J0696; J1953; J2060; J2543; J2704; J7030; J7050; J7120; P9016; Q9967

== ENCOUNTER 2023-05-30 13:28 | Observation (INO) | payer MEDICARE, SELFPAY ==
[2023-05-30] VITALS (34 sets, daily range): BP systolic 127–165; BP diastolic 67–94; PULSE 87–131; RESP 15–31; TEMP 36.4–36.6; O2SAT 96–100; BMI 18.8
--- NOTE | ~2023-05-30 | MR_ITS ---
EXAMINATION: MR brain/brain stem wo con DATE: 05/31/2023 14:00 INDICATION: Dizziness and dysmetria on exam. TECHNIQUE: Magnetic resonance imaging (MRI) of the brain and brainstem was performed without intraven ous contrast. Sequences included sagittal and axial T1-weighted SE, axial diffusion-weighted FS SE, a xial 3D SWAN, axial T2-weighted FLAIR, and axial T2-weighted FSE. Apparent diffusion coefficient (ADC ) maps were created. COMPARISON: Head CT and CT angiogram dated 05/30/2023 FINDINGS: Small to moderate-sized region of encephalomalacia in the right parietal lobe with additional smaller old infarcts at the left occipital lobe, posterior left frontal lobe and in the bilateral cerebellar hemispheres. There are no areas of restricted diffusion to suggest acute infarction. No intracranial hemorrhage or abnormal intracranial mass lesion. A few small scattered nonspecific foci of nonspecif ic increased T2-weighted signal intensity in the cerebral and pontine white matter, predominantly inv olving the deep and periventricular white matter. There are no intraparenchymal signal abnormalities seen on the other pulse sequences. Symmetric prominence of the sulci and ventricles consistent with m ild age-appropriate diffuse cerebral volume loss. There are no abnormal extra-axial fluid collections . Flow voids are seen in the cerebral arteries on the T2-weighted sequences consistent with their exp ected patency. Changes of right intraocular lens replacement. Visualized orbits and soft tissues are otherwise unremarkable. IMPRESSION: 1. No acute intracranial process. 2. Chronic infarcts in the posterior left frontal, the left occipital and right parietal lobes as wel l as the bilateral cerebellar hemispheres. 3. Age-related changes including mild diffuse volume loss and mild scattered white matter hypoattenua tion consistent with chronic small vessel ischemic disease. Reviewed, dictated and finalized at location A. IMPRESSION: 1. No acute intracranial process. 2. Chronic infarcts in the posterior left frontal, the left occipital and right parietal lobes as well as the bilateral cerebellar hemispheres. 3. Age-related changes including mild diffuse volume loss and mild scattered wh ite matter hypoattenuation consistent with chronic small vessel ischemic diseas e.
--- NOTE | ~2023-05-30 | CT_ITS ---
EXAMINATION: CTA BRAIN/CAROTID DATE: 05/30/2023 16:36 INDICATION: Dizziness TECHNIQUE: Computed tomographic angiography (CTA) of the head and neck was performed with 100 mL Omni paque-350 intravenous contrast. Multiplanar reconstructions and maximum intensity projection 3D-recon structions of the carotid arteries and of the intracranial arteries were created by the technologist on a separate workstation. Precontrast CT of the head was also obtained. Automated exposure control and iterative reconstruction technique were employed.The dose-length product was 1667.79 mGy-cm. COMPARISON: 02/04/2023 FINDINGS: Carotid arteries: There is atherosclerotic plaque with 0% stenosis of the right and left carotid bulbs relative to norm al distal artery lumen diameter (NASCET criteria). Visualized portions of the upper lungs are clear. Multinodular goiter with intrathoracic extension. Moderate cervical and upper thoracic spondylosis. Head: Unchanged regions of encephalomalacia consistent with small old infarcts at the bilateral cerebral he mispheres and more prominently at the right parietal lobe. This also unchanged small old lacunar infa rct at the posterior right subinsular white matter. No acute intracranial hemorrhage, acute infarctio n or abnormal extra axial fluid collection. There is mild scattered white matter hypoattenuation cons istent with chronic small vessel ischemic disease. Symmetric prominence of the sulci and ventricles c onsistent with mild age-appropriate diffuse cerebral volume loss. No mass/mass effect. No abnormally enhancing brain lesions on the postcontrast imaging. Changes of right intraocular lens replacement. The orbits, paranasal sinuses and mastoid air cells are normal. Intracranial arteries Scattered atherosclerotic calcifications without hemodynamically significant stenosis at the bilatera l vertebral arteries and bilateral carotid siphons. There is no hemodynamically significant stenosis in the vertebral, basilar and internal carotid arteries. Vertebral arteries are codominant. There are no aneurysms or dissections identified. Both A1 and P1 segments are patent. Cerebral arterial arbo rization appears symmetric. IMPRESSION: 1. Unchanged old infarcts in the right parietal lobe, bilateral cerebellar hemispheres and at the rig ht subinsular white matter. No acute intracranial process. 2. Small amount of atherosclerotic plaque with 0% stenosis of the right and left carotid bulbs relati ve to normal distal artery lumen diameter (NASCET criteria). 3. Unremarkable cerebral CT angiogram with no hemodynamically significant stenosis, aneurysm or disse ction. 4. Large multinodular goiter with intrathoracic extension. Reviewed, dictated and finalized at location [facility]. IMPRESSION: 1. Unchanged old infarcts in the right parietal lobe, bilateral cerebellar saul spheres and at the right subinsular white matter. No acute intracranial process . 2. Small amount of atherosclerotic plaque with 0% stenosis of the right and lef t carotid bulbs relative to normal distal artery lumen diameter (NASCET criteri a). 3. Unremarkable cerebral CT angiogram with no hemodynamically significant steno sis, aneurysm or dissection. 4. Large multinodular goiter with intrathoracic extension.
--- NOTE | ~2023-05-30 | CT_ITS ---
EXAMINATION: CTA chest PE protocol DATE: 05/30/2023 17:42 INDICATION: Chest pain. Dizziness. Elevated troponin. TECHNIQUE: Computed tomography angiography (CTA) of the chest was performed with 100 mL Omnipaque-350 intravenous contrast timed to evaluate the pulmonary arteries. Coronal maximum intensity projection 3D-reconstructions were created by the technologist. Automated exposure control and iterative reconst ruction technique were employed. Exam dose: 346.81 mGy-cm total exam DLP. COMPARISON: 05/02/2023 portable AP chest FINDINGS: There is diagnostic contrast enhancement of the pulmonary arteries and no evidence of pulmo nary embolism. Calcified substernal thyroid goiter. Thoracic aortic and prominent coronary artery calcifications, abdominal aortic calcification. Superio r mesenteric artery stent. Calcified atherosclerotic plaques at the origins of both renal arteries. Normal heart size. No pericardial or pleural effusion. No hilar or mediastinal mass lesion or lymphadenopathy. Mild discoid atelectasis at the posterior right lung base. No pulmonary consolidation. Normal morphology of the adrenal glands. Status post cholecystectomy. Extensive diverticulosis of left and right colon. 1.4 cm left renal cyst. Diffuse idiopathic skeletal hyperostosis of the thoracic spine. Degenerative change of the cervical a nd lumbar spine. IMPRESSION: No evidence of pulmonary embolism Reviewed, dictated and finalized at [facility]. Reviewed, dictated and finalized at location A.
--- NOTE | 2023-05-30 13:40 | ECG_ITS ---
SEE SCANNED COPY FOR CONFIRMED REPORT MTDD
[2023-05-30 13:51] LABS: Glucose Point of Care 103 mg/dl (65-105)
[2023-05-30 14:03] LABS: Basophils Absolute Auto 0.1 K/mm3 (0.0-0.1); Basophils Percent Auto 1.2 % (0.2-1.2); Eosinophils Absolute Auto 0.1 K/mm3 (0-0.3); Eosinophils Percent Auto 2.5 % (0-4.4); Hematocrit 41.8 % (42.0-52.0); Hemoglobin 13.6 g/dL (14.0-18.0); Immature Granulocyte Absolute 0.02 K/mm3 (0.00-0.031); Immature Granulocyte Percent A 0.4 % (0-0.5); Lymphocytes Absolute Auto 0.95 K/mm3 (0.9-3.2); Lymphocytes Percent Auto 18.6 % (18.3-44.2); Mean Corpuscular HGB Conc 32.5 g/dl (32-36); Mean Corpuscular Volume 95.2 fl (80-100); Monocytes Absolute Auto 0.6 K/mm3 (0.1-0.6); Neutrophils Absolute Auto 3.4 K/mm3 (1.3-6.7); Neutrophils Percent Auto 66.3 % (45.5-73.1); Platelet Count Result 230 k/mm3 (150-375); Red Blood Count 4.39 M/mm3 (4.6-6.20); Red Cell Distribution Width 14.7 % (11.5-14.5); White Blood Count 5.1 K/mm3 (4.5-10.0)
[2023-05-30 14:14] LABS: Alanine Aminotransferase 17 U/L (6-50); Albumin Level 4.7 g/dL (3.5-5.1); Alkaline Phosphatase 111 U/L (38-126); Anion Gap 9 mmol/L (4-12); Aspartate Amino Transferase 27 U/L (17-59); Bilirubin,Total 0.6 mg/dL (0.2-1.3); Blood Urea Nitrogen 16 mg/dL (9-20); Calcium 10.1 mg/dL (8.4-10.2); Carbon Dioxide 24 mmol/L (22-30); Chloride 102 mmol/L (98-107); Estimated CRCL calculation 63 ml/min; Estimated Glomerular Filt Rate > 60; Glucose 110 mg/dL (65-110); Potassium 4.4 mmol/L (3.4-5.0); Sodium 135 mmol/L (137-145)
[2023-05-30 14:19] LABS: Appearance Urine Clear (Clear); Bacteria Urine None Seen /hpf; Bilirubin Urine Negative (Negative); Blood Urine Negative (Negative); Color Urine Yellow (Yellow); Glucose Urine UA Negative (Negative); Ketones Urine Negative (Negative); Leukocyte Esterase Ur Trace LEU/UL (Negative); Nitrate Urine Negative (Negative); Non Pathogenic Casts 0-2; Protein Urine Negative (Negative); RBC Urine 0-2 /hpf (0-2); Specific Grav Ur 1.011 (1.001-1.035); Squamous Epithelial Cell Urine None Seen /hpf (Few); Urobilinogen Urine 0.2 mg/dL (<2.0); WBC Urine 0-5 /hpf (0-3); pH Urine 5.5 (5.0-9.0)
[2023-05-30 14:40] LABS: Add Urine Microscopic? YES
[2023-05-30] MEDS: MECLIZINE HCL 25 MG TABLET PO (14:56)
--- NOTE | 2023-05-30 15:49 | ED.GENADULT ---
HPI - General Adult General Chief complaint: Dizziness Stated complaint: dizzy Time Seen by Provider: 05/30/23 13:55 History of Present Illness HPI narrative: patient is an 82-year-old male who presents ER with dizziness. Spinning in nature. Worse with physical movements. Associated with nausea. no focal weakness or numbness to any arm or leg. No slurred speech. This has been happening to him intermittently for several years. He has been admitted to the hospital with a workup for his dizziness in the past as well. There is record of him getting EEG for possible seizure Related Data Home Medications Medication Instructions Recorded Confirmed ascorbic acid (vitamin C) 500 mg 500 mg PO DAILY 06/29/21 05/30/23 tablet vit C 250 mg-vit E 90 mg-zinc 40 1 tablet PO BID 06/29/21 05/30/23 mg-copper 1 ii-cheksk-kypdkv capsule (PreserVision AREDS-2) vitamin B complex (B 1 tablet PO DAILY 06/29/21 05/30/23 Complex-Vitamin B12 tablet) atorvastatin 40 mg tablet 40 mg PO QHS 01/25/22 05/30/23 acetaminophen 500 mg capsule 500 mg PO BID 04/16/22 05/30/23 cholecalciferol (vitamin D3) 125 50 mcg PO DAILY 04/16/22 05/30/23 mcg (5,000 unit) capsule coenzyme Q10 100 mg capsule 200 mg PO DAILY 04/16/22 05/30/23 gemfibrozil 600 mg tablet 600 mg PO BID 04/16/22 05/30/23 levetiracetam 1,000 mg tablet 1,000 mg PO BID 04/16/22 05/30/23 omega 3-pzm-jfv-fish oil 1,200 mg 1 cap PO DAILY 04/16/22 05/30/23 (144 mg-216 mg) capsule (Fish Oil) gfqwntwvwibh-glbonxak-faexxt tablet 1 tablet PO DAILY 02/05/23 05/30/23 pantoprazole 40 mg tablet,delayed 40 mg PO DAILY 02/05/23 05/30/23 release metoprolol succinate 50 mg 50 mg PO DAILY 05/01/23 05/30/23 tablet,extended release 24 hr Allergies Allergy/AdvReac Type Severity Reaction Status Date / Time No Known Allergies Allergy Verified 05/30/23 22:00 Review of Systems Review of Systems: All systems reviewed & are unremarkable except as noted in HPI and below Constitutional: Constitutional: Reports no additional constitutional complaints PMFSH Past Medical History Medical History Anemia Atherosclerotic heart disease of [place] coronary artery with unspecified angina pectoris Cerebral atherosclerosis Chronic GERD Chronic vascular disorders of intestine Closed hip fracture Diverticular hemorrhage Epilepsy, unspecified, not intractable, without status epilepticus Essential (primary) hypertension Generalized anxiety disorder Glaucoma History of CVA (cerebrovascular accident) x4 without any residual Hyperlipidemia Hypertension Hyponatremia Ischemic cardiomyopathy Nicotine dependence, chewing tobacco, with other nicotine-induced disorders Quit chewing tobacco in 2022 Nonspecific paroxysmal spell Proteinuria, unspecified Syncope Type 2 diabetes mellitus with other diabetic kidney complication Surgical History Surgical History History of bilateral knee replacement left 2009 right 2019 History of cataract extraction History of open reduction and internal fixation (ORIF) procedure Right hip fracture 02/05/2023 Hx of cholecystectomy 2000 Stented coronary artery x4 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 He had 3 children with his 1st and 2 children with his 2nd as far as he knows all of his children are healthy. 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 He reports that he smoked cigarettes for about 5-10 years when he was quite young. He used to occasionally smoke a cigar but has not done so in about
--- NOTE | 2023-05-30 16:41 | ECG_ITS ---
SEE SCANNED COPY FOR CONFIRMED REPORT MTDD
[2023-05-30 17:25] LABS: Troponin I 0.112 ng/mL (0.000-0.034)
[2023-05-30 17:25] LABS: Troponin I 0.095 ng/mL (0.000-0.034)
[2023-05-30] MEDS: LACTATED RINGERS 1,000 ML 100 ML IV CONT (18:48)
--- NOTE | 2023-05-30 20:14 | PM.IMHP ---
H&P: HPI History of Present Illness Date/Time: 05/30/23 20:14 Chief Complaint: Multiple dizzy spells Narrative: 82-year-old male with past medical history of recent diverticular bleed with symptomatic anemia, ischemic cardiomyopathy with preserved ejection fraction, epilepsy, essential hypertension, hyperlipidemia, diabetes, multiple CVAs and chronic vertigo among other comorbidities who presented to the ER with multiple episodes of prolonged dizziness. Patient has been having 2-3 episodes of vertigo every day for the last 3 years. He reports that he has the symptoms frequently but they have been worse/lasting longer over the last few days. At the time of my evaluation the patient is only alert oriented to person, place and name of the president. He thought the month was April in could not state the year. He was aware that he come to the hospital due to a funny sensation in his head when he would try to get up and move around. He states that he has these symptoms frequently but have been worse for the last couple of days. They seem to be lasting longer. He reports a sensation of feeling funny in his head and getting cold chills. He states that he feels weak in feels as if he may pass out. He denied any true vertigo or dizziness at the time of my evaluation but had complained of a sensation of dizziness to the nursing staff. His symptoms are worse whenever orthostatic vitals are performed. The patient's blood pressures do not drop with position changes but patient does have significant tachycardia with a heart rate climbing from 102 supine, 116 was sitting and 131 with standing when they were performed on arrival to the medical floor. The patient reports that he has had a good appetite since his last hospitalization (04/30 through 05/04) he thought that he was drinking enough water was mucous membranes that this time my evaluation were quite dry. On review of chart His weight is down 4-5 kg since his recent hospitalization. Denies having any diarrhea, constipation, hematochezia, melena or dysuria. He denies any chest pain or shortness of breath. In the ER his initial troponins were slightly elevated but trended down with each successive lab draw. His EKG was not available for review at the time of my evaluation due to technical difficulties. Source of information is obtained from nursing report, ER physician report, and review of external medical records. The patient himself is only a fair to poor historian. During his last hospitalization the patient did have transient fever and tachycardia. No definitive source of infection identified the patient was treated for diverticular bleed. Review of Systems Review of Systems: 12 systems were reviewed with pertinent positives and negatives per HPI. Except as documented in the HPI, all other systems were reviewed and are negative. [facility] Past Medical History Medical History (Updated 05/31/23 @ 01:54 by Steph Gaines DO) Anemia Atherosclerotic heart disease of [place] coronary artery with unspecified angina pectoris Cerebral atherosclerosis Chronic GERD Chronic vascular disorders of intestine Closed hip fracture Diverticular hemorrhage Epilepsy, unspecified, not intractable, without status epilepticus Essential (primary) hypertension Generalized anxiety disorder Glaucoma History of CVA (cerebrovascular accident) x4 without any residual Hyperlipidemia Hypertension Hyponatremia Ischemic cardiomyopathy Nicotine dependence, chewing tobacco, with other nicotine-induced disorders Quit chewing tobacco in 2022 Nonspecific paroxysmal spell Proteinuria, unspecified Syncope Type 2 diabetes mellitus with other diabetic kidney complication Surgical History Surgical History (Updated 05/30/23 @ 20:47 by Steph Gaines DO) History of bilateral knee replacement left 2009 right 2019 History of cataract extraction History of open reduction and internal fixation (ORIF) procedure Right hi
[2023-05-30 20:21] LABS: Troponin I 0.093 ng/mL (0.000-0.034)
--- NOTE | 2023-05-30 21:36 | ADMGEN ---
This patient, Ramiro Enciso, was admitted to Medical Room 342-01. Patient/family oriented to hospital policies and general routines including ID bracelet, bed and alarms, visiting hours, pain management, procedures, bathroom and other care routines, personal items, smoking policy, room service/diet, and visiting hours. Information on how to activate the Rapid Response Team has been discussed. Patient/Family are encouraged to report perceived risks to care and to ask questions if they do not understand what they are told or what they should do.
[2023-05-30] MEDS: SODIUM CHLORIDE 0.9% IV 1,000 ML 999 ML IV CONT (23:16)
[2023-05-31] VITALS (13 sets, daily range): BP systolic 118–136; BP diastolic 56–77; PULSE 63–90; RESP 16–18; TEMP 36.1–36.5; O2SAT 97–100
[2023-05-31 05:54] LABS: Hematocrit 39.1 % (42.0-52.0); Hemoglobin 12.4 g/dL (14.0-18.0); Mean Corpuscular HGB Conc 31.7 g/dl (32-36); Mean Corpuscular Hemoglobin 30.5 pg (26-34); Mean Corpuscular Volume 96.1 fl (80-100); Mean Platelet Volume 9.1 fl (7.4-10.4); Platelet Count Result 223 k/mm3 (150-375); Red Blood Count 4.07 M/mm3 (4.6-6.20); Red Cell Distribution Width 14.5 % (11.5-14.5)
[2023-05-31 06:05] LABS: Anion Gap 4 mmol/L (4-12); Blood Urea Nitrogen 12 mg/dL (9-20); Calcium 9.5 mg/dL (8.4-10.2); Carbon Dioxide 27 mmol/L (22-30); Chloride 105 mmol/L (98-107); Estimated CRCL calculation 58 ml/min; Estimated Glomerular Filt Rate > 60; Glucose 79 mg/dL (65-110); Potassium 4.1 mmol/L (3.4-5.0); Sodium 136 mmol/L (137-145)
[2023-05-31] MEDS: CHOLECALCIFEROL 1,000 UNITS TABLET 5000 UNITS PO (08:19)
[2023-05-31] MEDS: OMEGA 3 POLYUNSAT FATTY ACIDS 1 GM CAP PO (08:20)
[2023-05-31] MEDS: VITAMIN B COMPLEX CAPSULE 1 CAP PO (08:20)
[2023-05-31] MEDS: levETIRAcetam 500 MG TABLET 1000 MG PO ×2 (08:20→20:53)
[2023-05-31] MEDS: PANTOPRAZOLE 40 MG TABLET PO (08:20)
[2023-05-31] MEDS: ASPIRIN 81 MG ENTERIC TABLET PO (08:20)
[2023-05-31] MEDS: ASCORBIC ACID 500 MG TABLET PO (08:21)
[2023-05-31] MEDS: ACETAMINOPHEN 500 MG TABLET PO ×2 (08:21→16:59)
[2023-05-31] MEDS: OPTI-GEN TAB 1 TABLET PO ×3 (08:21→16:59)
[2023-05-31] MEDS: gemfibroziL 600 MG TABLET PO ×2 (08:21→16:59)
[2023-05-31] MEDS: CLOPIDOGREL BISULFATE 75 MG TABLET PO (08:21)
[2023-05-31] MEDS: METOPROLOL SUCCINATE EXT REL 50 MG TABCR PO (08:21)
--- NOTE | 2023-05-31 10:19 | WPDNEURCNPN ---
Assessment and Plan Assessment and plan (1) Orthostatic dizziness: Code(s): R42 - Dizziness and giddiness Status: Acute (2) Dehydration: Code(s): E86.0 - Dehydration Status: Acute Plan Ramiro Enciso is a 82 year old male with a history of CAD, HTN, HLD, cardiomyopathy, DM, prior strokes, and possibly seizures presenting for evaluation of acute worsening of chronic dizziness. He reports specially worsening lightheadedness over the past few days. His orthostatic vitals are positive, which could be related to dehydration. I don't think the symptoms that brought him to the hospital are related to seizures. He has some pass-pointing on FNF that is worse on the left. Unclear if this is new or related to prior strokes. Will obtain MRI brain. Consult date: 05/31/23 Reason for consult: Dizziness HPI: Ramiro Enciso is a 82 year old male with a history of CAD, HTN, HLD, cardiomyopathy, DM, prior strokes, and possibly seizures presenting for evaluation of acute worsening of chronic dizziness. Patient has been experiencing 2-3 episodes of dizziness on a daily basis for the past three years. However, over the past few days his symptoms are worsening. He describes the dizziness as episodes of feeling like he is going to pass out, especially with positional change. In the ER, trops elevated but thought to be related to tachycardia, and also have downtrended. All other labs were unrevealing. He had a CT head which did not show any acute changes, but does show old strokes. Vessel imaging was unrevealing as well. Admitting provider felt that he appeared dehydrated so was given IV fluids. His vitals have been positive for orthostatic tachycardia. EKG showed sinus rhythm with 1st degree AV block. Of note, there appears to be a history of 'epilepsy' documented in his chart. He takes Keppra 1000mg BID. He had a routine EEG done about two months ago for episodes described as 'spacing out, can hear what's going around him but unable to respond, lasting up to 15 min, and occurring several times per day'. describes seeing patient having similar spells, and the last one being yesterday. Patient was placed on Keppra by a Neurologist in [facility], per . Patient feels much better today and denied any significant lightheadedness while walking around this morning. Review of Systems Review of Systems: All systems reviewed & are unremarkable except as noted in HPI and below PMFSH Past Medical History Medical History Anemia Atherosclerotic heart disease of [place] coronary artery with unspecified angina pectoris Cerebral atherosclerosis Chronic GERD Chronic vascular disorders of intestine Closed hip fracture Diverticular hemorrhage Epilepsy, unspecified, not intractable, without status epilepticus Essential (primary) hypertension Generalized anxiety disorder Glaucoma History of CVA (cerebrovascular accident) x4 without any residual Hyperlipidemia Hypertension Hyponatremia Ischemic cardiomyopathy Nicotine dependence, chewing tobacco, with other nicotine-induced disorders Quit chewing tobacco in 2022 Nonspecific paroxysmal spell Proteinuria, unspecified Syncope Type 2 diabetes mellitus with other diabetic kidney complication Surgical History Surgical History History of bilateral knee replacement left 2009 right 2019 History of cataract extraction History of open reduction and internal fixation (ORIF) procedure Right hip fracture 02/05/2023 Hx of cholecystectomy 2000 Stented coronary artery x4 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
--- NOTE | 2023-05-31 14:38 | PCCCNOTE ---
On 05/31/23, the student, [Alison Lagos], provided care and completed [facility] documentation on this patient. I have reviewed the student's documentation and agree with the findings.
--- NOTE | 2023-05-31 15:16 | PM.IMPN ---
Progress Note: A&P Assessment and Plan (1) Orthostatic dizziness: Code(s): R42 - Dizziness and giddiness Status: Acute Assessment and Plan: Patient with chronic vertigo and presents with multiple episodes of prolonged dizziness. He reported that he was having 2-3 episodes of vertigo daily for the past 3 years. EEG in April showing no significant abnormality. He is on seizure medications with Keppra. CTA head/neck showing multiple old CVAs. Incidental finding of large goiter. In April: TSH<0.015 with normal FT4 Brain MRI again showing chronic infarcts but no acute process. Neurology was consulted from the ER. Tele showing run of SVT vs sinus tach (RN thought this was the time she had him up) Orthostatic BP normal and only tachycardic with standing (102 --> 131) -- Possibly POTS PT/OT. Repeat thyroid studies. Check cortisol level. Consider outpatient cardiac monitoring. (2) Elevated troponin: Code(s): R79.89 - Other specified abnormal findings of blood chemistry Status: Acute Assessment and Plan: The patient did have some mildly elevated troponins but has not been having any chest pain or cardiac symptoms. He does have known ischemic cardiomyopathy with known severe disease of the RCA that Cardiology was unable to intervene on due to stent position in 2021. The patient's troponins were initially positive in the ER at 0.112 but have trended downward. CTA chest showing no evidence of PE Acute cardiac ischemia could be contributing to the patient's symptoms but felt less likely. Probably the elevated troponin is due to demand ischemia from his relative tachycardia with position changes/exertion. Continue aspirin, atorvastatin, beta-ori and monitor on telemetry Patient's remainder of his medications have been reviewed and resumed as appropriate. Patient has been admitted as observation status. (3) Dehydration: Code(s): E86.0 - Dehydration Status: Acute Assessment and Plan: Treated with IV fluids. Renal function normal Follow (4) Hyponatremia: Code(s): E87.1 - Hypo-osmolality and hyponatremia Status: Acute Assessment and Plan: Mild hyponatremia not felt to be clinically significant. (5) Ischemic cardiomyopathy: Code(s): I25.5 - Ischemic cardiomyopathy Status: Chronic Assessment and Plan: Hx of iCMP. Continue current medical regiment Plan DVT prophylaxis - SCDs Code status - DNR Subjective Date/time seen: 05/31/23 15:16 Interval history: 82yo male with recent diverticular bleed with symptomatic anemia, ischemic cardiomyopathy with preserved ejection fraction, epilepsy, essential hypertension, hyperlipidemia, diabetes, multiple CVAs and chronic vertigo who presented to the ER with multiple episodes of prolonged dizziness.?? Still feels dizzy. No CP or SOB. Some nausea today but able to tolerate oral intake. No vomiting. He is up walking in the room. No diarrhea. Exam Narrative: AF 97.0 139/65 88 18 99% ra Gen - NARD Chest - CTA bilaterally, nml RR CV - RRR S1/S2. Tele showing run of ?SVT vs sinus tach Abd - Soft, NT/ND, Positive BS Ext - No pedal edema Psych - Nml mood and affect Skin - Warm and dry Objective Data Vital Signs Vital Signs: Vital Signs - 24 hr 05/30/23 15:31 05/30/23 16:01 05/30/23 16:02 Temperature Pulse Rate 102 H 102 H 112 H Respiratory Rate 20 20 31 H Blood Pressure 143/79 H 140/78 Pulse Oximetry 100 99 Oxygen Delivery 05/30/23 16:37 05/30/23 17:01 05/30/23 17:30 Temperature Pulse Rate 120 H 103 H 105 H Respiratory Rate 26 H 22 H 17 Blood Pressure 165/71 H 140/82 131/80 Pulse Oximetry 99 98 98 Oxygen Delivery 05/30/23 17:43 05/30/23 18:01 05/30/23 18:31 Temperature Pulse Rate 102 H 107 H 104 H Respiratory Rate 20 26 H 15 Blood Pressure 141/83 H 145/79 H 147/86 H Pulse Oximetry 100 98 98 Oxygen Delivery 05/30/23
[2023-05-31] MEDS: ATORVASTATIN 40 MG TABLET PO (20:54)
[2023-06-01] VITALS (9 sets, daily range): BP systolic 127–139; BP diastolic 63–77; PULSE 61–105; RESP 15–18; TEMP 36.1–36.4; O2SAT 99–100
[2023-06-01] MEDS: CHOLECALCIFEROL 1,000 UNITS TABLET 5000 UNITS PO (08:38)
[2023-06-01] MEDS: gemfibroziL 600 MG TABLET PO (08:39)
[2023-06-01] MEDS: OPTI-GEN TAB 1 TABLET PO (08:39)
[2023-06-01] MEDS: ACETAMINOPHEN 500 MG TABLET PO (08:40)
[2023-06-01] MEDS: PANTOPRAZOLE 40 MG TABLET PO (08:40)
[2023-06-01] MEDS: ASPIRIN 81 MG ENTERIC TABLET PO (08:40)
[2023-06-01] MEDS: CLOPIDOGREL BISULFATE 75 MG TABLET PO (08:40)
[2023-06-01] MEDS: levETIRAcetam 500 MG TABLET 1000 MG PO (08:40)
[2023-06-01] MEDS: ASCORBIC ACID 500 MG TABLET PO (08:40)
[2023-06-01] MEDS: VITAMIN B COMPLEX CAPSULE 1 CAP PO (08:40)
[2023-06-01] MEDS: OMEGA 3 POLYUNSAT FATTY ACIDS 1 GM CAP PO (08:40)
[2023-06-01] MEDS: METOPROLOL SUCCINATE EXT REL 50 MG TABCR PO (08:40)
[2023-06-01 08:52] LABS: Albumin Level 4.3 g/dL (3.5-5.1); Anion Gap 9 mmol/L (4-12); Blood Urea Nitrogen 13 mg/dL (9-20); Calcium 10.1 mg/dL (8.4-10.2); Carbon Dioxide 25 mmol/L (22-30); Chloride 104 mmol/L (98-107); Estimated CRCL calculation 58 ml/min; Estimated Glomerular Filt Rate > 60; Glucose 94 mg/dL (65-110); Phosphorus 4.1 mg/dL (2.5-4.5); Potassium 4.2 mmol/L (3.4-5.0); Sodium 138 mmol/L (137-145)
[2023-06-01 09:27] LABS: Vitamin D 25 Hydroxy 35.4 ng/mL
[2023-06-01 09:41] LABS: Thyroid Stimulating Hormone Reflex < 0.015 uIU/mL (0.465-4.68)
[2023-06-01 10:05] LABS: Folic Acid > 20.0 ng/mL (2.76->20)
--- NOTE | 2023-06-01 11:29 | WPDNEUROPN ---
Progress Note: A&P Assessment and Plan Plan Ramiro Enciso is a 82 year old male with a history of CAD, HTN, HLD, cardiomyopathy, DM, prior strokes, and possibly seizures presenting for evaluation of acute worsening of chronic dizziness. He reports specially worsening lightheadedness over the past few days. His orthostatic vitals are positive, which could be related to dehydration. I don't think the symptoms that brought him to the hospital are related to seizures. He has some pass-pointing on FNF that is worse on the left, which can be explained by old cerebellar infarcts as noted on MRI. No new stroke noted. Subjective Date/time seen: 06/01/23 11:29 Interval history: Ramiro Enciso is a 82 year old male with a history of CAD, HTN, HLD, cardiomyopathy, DM, prior strokes, and possibly seizures presenting for evaluation of acute worsening of chronic dizziness. Patient has been experiencing 2-3 episodes of dizziness on a daily basis for the past three years. However, over the past few days his symptoms are worsening. He describes the dizziness as episodes of feeling like he is going to pass out, especially with positional change. In the ER, trops elevated but thought to be related to tachycardia, and also have downtrended. All other labs were unrevealing. He had a CT head which did not show any acute changes, but does show old strokes. Vessel imaging was unrevealing as well. Admitting provider felt that he appeared dehydrated so was given IV fluids. His vitals have been positive for orthostatic tachycardia. EKG showed sinus rhythm with 1st degree AV block. Of note, there appears to be a history of 'epilepsy' documented in his chart. He takes Keppra 1000mg BID. He had a routine EEG done about two months ago for episodes described as 'spacing out, can hear what's going around him but unable to respond, lasting up to 15 min, and occurring several times per day'. describes seeing patient having similar spells, and the last one being yesterday. Patient was placed on Keppra by a Neurologist in [facility], per .? MRI brain from this admission showed old infarcts, including involvement of bilateral cerebellar hemispheres. Objective Data Vital Signs Vital Signs: Vital Signs - 24 hr 05/31/23 14:28 05/31/23 14:28 05/31/23 14:29 Temperature 36.4 C Pulse Rate 75 75 Respiratory Rate 16 Blood Pressure 118/56 L 124/61 Pulse Oximetry 100 Oxygen Delivery 05/31/23 14:29 05/31/23 12:00 05/31/23 16:00 Temperature Pulse Rate 90 77 63 Respiratory Rate Blood Pressure 124/67 Pulse Oximetry Oxygen Delivery 05/31/23 20:47 05/31/23 20:49 05/31/23 20:55 Temperature 36.1 C L Pulse Rate 75 79 79 Respiratory Rate 18 Blood Pressure 131/75 129/60 134/77 Pulse Oximetry 100 Oxygen Delivery 05/31/23 20:00 05/31/23 20:00 06/01/23 00:00 Temperature Pulse Rate 72 61 Respiratory Rate Blood Pressure Pulse Oximetry Oxygen Delivery Room Air 06/01/23 04:00 06/01/23 05:04 06/01/23 08:40 Temperature 36.1 C L Pulse Rate 82 88 98 Respiratory Rate 18 Blood Pressure 139/65 Pulse Oximetry 99 Oxygen Delivery 06/01/23 08:47 06/01/23 08:48 06/01/23 08:48 Temperature Pulse Rate 77 92 105 H Respiratory Rate Blood Pressure 137/64 128/77 131/63 Pulse Oximetry Oxygen Delivery Intake/Output Intake/Output: Intake & Output 05/29/23 05/30/23 05/31/23 06/01/23 23:59 23:59 23:59 23:59 Intake Total 1630 240 Output Total 600 600 750 Balance -600 1030 -510 Meds/Results Medications: Active Medications Generic Name Dose Route Start Last Admin Trade Name Meg PRN Reason Stop Dose Admin Acetaminophen 500 mg 05/31/23 09:00 06/01/23 08:40 Acetaminophen 500 Mg Tablet PO 500 mg BID EMELINA Administration Ascorbic Acid 500 mg 05/31/23 09:00 06/01/23 08:40 Ascorbic Acid 500 Mg Tablet PO 500 mg DAILY EMELINA Administration Aspirin 81
--- NOTE | 2023-06-01 14:18 | PM.DS ---
DS: Admitting Diagnosis Discharge Date 06/01/23 Admitting Diagnosis Dizziness DS: Discharge Diagnosis Discharge Diagnosis (1) Orthostatic dizziness: Code(s): R42 - Dizziness and giddiness Status: Acute (2) Elevated troponin: Code(s): R79.89 - Other specified abnormal findings of blood chemistry Status: Acute (3) Dehydration: Code(s): E86.0 - Dehydration Status: Acute (4) Hyponatremia: Code(s): E87.1 - Hypo-osmolality and hyponatremia Status: Acute (5) Ischemic cardiomyopathy: Code(s): I25.5 - Ischemic cardiomyopathy Status: Chronic DS: Summary Hospital Course Reason for hospitalization: 82yo male with recent diverticular bleed with symptomatic anemia, ischemic cardiomyopathy with preserved ejection fraction, epilepsy, essential hypertension, hyperlipidemia, diabetes, multiple CVAs and chronic vertigo who presented to the ER with multiple episodes of prolonged dizziness.??Please see H&P for detail Hospital Course: Patient with chronic vertigo and presents with multiple episodes of prolonged dizziness. He reported that he was having 2-3 episodes of vertigo daily for the past 3 years. EEG in April showing no significant abnormality. He is on seizure medications with Keppra. CTA head/neck showing multiple old CVAs. Incidental finding of large goiter. In April: TSH<0.015 with normal FT4. Repeat TSH <0.015. Not on Amiodarone or levothyroxine. B12, Folate, Cortisol and VitD levels normal. UA clear. Brain MRI again showing chronic infarcts but no acute process. Neurology was consulted and appreciate their input. Tele showing run of SVT vs sinus tach (RN thought this was the time she had him up) but no recurrence. Orthostatic BP normal and only tachycardic with standing (102 --> 131) -- Possibly POTS. The patient did have some mildly elevated troponins but has not been having any chest pain or cardiac symptoms.? He does have known ischemic cardiomyopathy with known severe disease of the RCA that Cardiology was unable to intervene on due to stent position in 2021.?The patient's troponin was initially positive in the ER at 0.112 but have trended downward.?CTA chest showing no evidence of PE. Acute cardiac ischemia could be contributing to the patient's symptoms but felt less likely.?Probably the elevated troponin is due to demand ischemia from his relative tachycardia with position changes/exertion.?We continued aspirin, atorvastatin and beta-ori. He worked with PT/OT and was walking unassisted with walker in the halls. He continued to have symptoms but were improved. He overall did well and was able to be discharged on 06/01/23. Status at Discharge Cognitive/behavioral status at discharge: stable Time Spent with Patient Time attestation: Total time spent providing and/or coordinating discharge services: 35 minutes Time spent: Greater than 30 minutes Specific discharge activities: discussed care with at bedside. all questions answered. Exam Narrative: AF 97.5 127/66 79 15 100% ra Gen - NARD Chest - CTA bilaterally, nml RR CV - RRR S1/S2. Tele showing no significant dysrhythmias Abd - Soft, NT/ND, Positive BS Ext - No pedal edema Psych - Nml mood and affect Skin - Warm and dry DS: Data Data Completed and Pending Labs on day of discharge: Labs from last 24 hours 06/01/23 08:33 Sodium 138 Potassium 4.2 Chloride 104 Carbon Dioxide 25 Anion Gap 9 BUN 13 Creatinine 0.70 Estim Creat Clear Calc 58 Estimated GFR > 60 Glucose 94 Calcium 10.1 Phosphorus 4.1 Albumin 4.3 Vitamin B12 870.0 Vitamin D 25-Hydroxy 35.4 Folate > 20.0 H TSH (Reflex) < 0.015 L Free T4 Pending Random Cortisol 13.60 Discharge Plan Discharge Attending physician on discharge: Vern Stark Consulting providers: Mariluz Flores Discharging Clinician: Vern Stark Anticipated Discharge Date/Time: 06/01/23 14:28 Pat
[2023-06-01 17:50] LABS: Free T4 Free Thyroxine Reflex 1.75 ng/dL (0.78-2.19)
[2023-06-01 19:09] LABS: Total Triiodothyronine (T3) 1.15 NG/ML (0.97-1.69)
== END 2023-06-01 15:02 | disposition home health service (06) ==
LOC: ANHED 14:17 → ANH3MED 21:18
PROVIDERS: Internal Medicine; Admitting Provider Internal Medicine; Emergency Provider Emergency Medicine; PCP Family Medicine; Visit Provider Internal Medicine
DX: R42 Dizziness and giddiness (principal); E86.0 Dehydration; E87.1 Hypo-osmolality and hyponatremia; I25.5 Ischemic cardiomyopathy; R79.89 Other specified abnormal findings of blood chemistry; I25.10 Atherosclerotic heart disease of native coronary artery without angina pectoris; G40.909 Epilepsy, unspecified, not intractable, without status epilepticus; I10 Essential (primary) hypertension; E78.5 Hyperlipidemia, unspecified; E13.29 Other specified diabetes mellitus with other diabetic kidney complication; D64.9 Anemia, unspecified; K21.9 Gastro-esophageal reflux disease without esophagitis; F41.1 Generalized anxiety disorder; H40.9 Unspecified glaucoma; I67.2 Cerebral atherosclerosis; Z95.5 Presence of coronary angioplasty implant and graft; Z66 Do not resuscitate; Z87.891 Personal history of nicotine dependence; Z86.73 Personal history of transient ischemic attack (TIA), and cerebral infarction without residual deficits
CPT/HCPCS: 36415; 70496; 70498; 70551; 71275; 80048; 80053; 80069; 81001; 82306; 82533; 82607; 82746; 82948; 84439; 84443; 84480; 84484; 85025; 85027; 93005; 96360; 96361; 97161; 97165; 99285; A9270; G0378; J7030; J7120; Q9967

== ENCOUNTER 2023-06-16 18:46 | Inpatient (IN) | payer MEDICARE, SELFPAY ==
--- NOTE | ~2023-06-16 | XR_ITS ---
EXAMINATION: XR chest 1V portable Exam Date/Time: 06/16/2023 19:25 CDT HISTORY: weakness, N/V/D X 2 DAYS Comparison: 05/02/2023. RESULT: Lines, tubes, and devices: Cholecystectomy clips. Lungs and pleura: Clear. Cardiomediastinal silhouette: Stable. Other: No acute osseous or upper abdominal finding. IMPRESSION: No acute cardiopulmonary process. Reviewed, dictated and finalized at location K.
--- NOTE | ~2023-06-16 | CT_ITS ---
EXAMINATION: CT abdomen pelvis w con DATE: 06/16/2023 19:51 INDICATION: Diarrhea/abdominal pain TECHNIQUE: Computed tomography (CT) of the abdomen and pelvis was performed with 100 mL Omnipaque-350 intravenous contrast. Automated exposure control and iterative reconstruction technique were employe d. The dose-length product was 546.87 mGy-cm. COMPARISON: 04/30/2023. FINDINGS: Lower thorax: Heavy coronary artery calcification and likely coronary stents. Motion artifact and sen escent changes in the lungs. Liver: Normal. Biliary/Gallbladder: Gallbladder is absent. No bile duct dilation. Pancreas: No mass or duct dilation. Spleen: Normal. Adrenals:No mass. Kidneys: No suspicious mass, obstructing stone, or hydronephrosis. Simple left midpole cyst. Subcenti meter right upper, mid, and lower pole hypodensities, too small to characterize but most likely repre sent cysts. GI tract: Moderate distal esophageal and mild gastric wall edema. Suggestion of a 11 mm focal outpouc theresa at the junction of the first and second portions of the duodenum. Uncomplicated duodenal diverti culum. No small or large bowel dilation. Normal appendix. Diverticulosis without diverticulitis. Mesentery/Peritoneum: No ascites, mass, or free air. Retroperitoneum: No mass. Atherosclerotic abdominal aortic and/or arterial calcifications. Stent in t he proximal SMA. Pelvis: Minimally distended urinary bladder. Prostatomegaly with calcifications. Soft Tissues: Small uncomplicated fat-containing umbilical and left inguinal hernias. Bones: No acute osseous finding. Partially visualized, uncomplicated appearing right femoral hardwar e. IMPRESSION: Moderate esophagitis. Mild gastritis. Suggestion of a focal outpouching at the junction of the first and second portions of the duodenum, m ay represent a duodenal ulcer, consider referral for endoscopy. No current evidence of perforation. Reviewed, dictated and finalized at location K. IMPRESSION: Moderate esophagitis. Mild gastritis. Suggestion of a focal outpouching at the junction of the first and second porti ons of the duodenum, may represent a duodenal ulcer, consider referral for endo scopy. No current evidence of perforation.
--- NOTE | ~2023-06-16 | CT_ITS ---
EXAMINATION: CT brain wo con DATE: 06/16/2023 20:51 INDICATION: Weakness/dizziness . TECHNIQUE: Computed tomography (CT) of the head was performed without intravenous contrast. The mA wa s adjusted according to patient size. Iterative reconstruction technique was employed. The dose-lengt h product was 681.00 mGy-cm. COMPARISON: 05/30/2023; MR brain 05/31/2023. FINDINGS: No acute intracranial hemorrhage or acute extra-axial collection. No hydrocephalus, mass, or herniation. No acute ischemic infarct. Unremarkable dural venous sinus attenuation. No acute osseous abnormality. The aerated spaces are clear. Mild atrophy and chronic white matter change. Atherosclerotic intracranial calcification. Old small b ilateral cerebellar infarcts. Small right basal ganglia lacunar infarct. Gyral hyperdensity in the bi lateral occipital lobes corresponding with low signal abnormality on susceptibility weighted sequence s in the prior MRI, consistent with laminar necrosis. Right parietal and left occipital encephalomala charanjit. Right lens replacement. IMPRESSION: No acute intracranial process. Reviewed, dictated and finalized at location K.
[2023-06-16 18:46] VITALS: BP 94/70; PULSE 130; RESP 20; TEMP 36.7; O2SAT 95
[2023-06-16 18:52] VITALS: PULSE 122
--- NOTE | 2023-06-16 18:59 | ECG_ITS ---
SEE SCANNED COPY FOR CONFIRMED REPORT MTDD
[2023-06-16 19:12] LABS: Basophils Percent Auto 0.3 % (0.2-1.2); Hematocrit 31.9 % (42.0-52.0); Hemoglobin 10.5 g/dL (14.0-18.0); Immature Granulocyte Absolute 0.09 K/mm3 (0.00-0.031); Immature Granulocyte Percent A 0.8 % (0-0.5); Lymphocytes Absolute Auto 0.52 K/mm3 (0.9-3.2); Lymphocytes Percent Auto 4.4 % (18.3-44.2); Mean Corpuscular HGB Conc 32.9 g/dl (32-36); Mean Corpuscular Hemoglobin 31.5 pg (26-34); Mean Corpuscular Volume 95.8 fl (80-100); Monocytes Absolute Auto 0.8 K/mm3 (0.1-0.6); Monocytes Percent Auto 6.9 % (2.6-8.5); Neutrophils Absolute Auto 10.4 K/mm3 (1.3-6.7); Neutrophils Percent Auto 87.6 % (45.5-73.1); Platelet Count Result 309 k/mm3 (150-375); Red Blood Count 3.33 M/mm3 (4.6-6.20); Red Cell Distribution Width 13.9 % (11.5-14.5); White Blood Count 11.9 K/mm3 (4.5-10.0)
[2023-06-16 19:16] VITALS: BP 105/65; PULSE 123; RESP 22; O2SAT 93
[2023-06-16 19:23] LABS: Alanine Aminotransferase 18 U/L (6-50); Albumin Level 3.9 g/dL (3.5-5.1); Alkaline Phosphatase 87 U/L (38-126); Anion Gap 11 mmol/L (4-12); Aspartate Amino Transferase 25 U/L (17-59); Bilirubin,Total 0.3 mg/dL (0.2-1.3); Blood Urea Nitrogen 58 mg/dL (9-20); Calcium 9.7 mg/dL (8.4-10.2); Carbon Dioxide 26 mmol/L (22-30); Chloride 99 mmol/L (98-107); Estimated CRCL calculation 44 ml/min; Estimated Glomerular Filt Rate > 60; Glucose 167 mg/dL (65-110); Sodium 136 mmol/L (137-145)
[2023-06-16 19:31] LABS: Anisocytosis 1+; Burr Cells 1+; Large Platelets Present; Microcytosis 1+ (NORMAL); Platelet Estimate Adequate (Adequate); Poikilocytosis 1+; Schistocytes None Seen; Tear Drop Cells 1+
--- NOTE | 2023-06-16 20:00 | ED.GENADULT ---
HPI - General Adult General Chief complaint: Dizziness Stated complaint: dizzy Time Seen by Provider: 06/16/23 19:00 History of Present Illness HPI narrative: This is an 82-year-old male presenting ED with chief complaint of weakness. Patient says over last several days he has been having multiple episodes of diarrhea. He has also had some abdominal discomfort in subjective fevers. He also says he has had intermittent chest pain although he states that is chronic has not quite frequently patient denies shortness of breath, nausea vomiting. No blood in his diarrhea. Patient was admitted to the hospital for dehydration 2 weeks ago. patient lives at home with his elderly . Related Data Home Medications Medication Instructions Recorded Confirmed ascorbic acid (vitamin C) 500 mg 500 mg PO DAILY 06/29/21 06/05/23 tablet vit C 250 mg-vit E 90 mg-zinc 40 1 tablet PO BID 06/29/21 06/05/23 mg-copper 1 [id number]-[id number] capsule (PreserVision AREDS-2) vitamin B complex (B 1 tablet PO DAILY 06/29/21 06/05/23 Complex-Vitamin B12 tablet) atorvastatin 40 mg tablet 40 mg PO QHS 01/25/22 06/05/23 acetaminophen 500 mg capsule 500 mg PO BID 04/16/22 06/05/23 cholecalciferol (vitamin D3) 125 50 mcg PO DAILY 04/16/22 06/05/23 mcg (5,000 unit) capsule coenzyme Q10 100 mg capsule 200 mg PO DAILY 04/16/22 06/05/23 gemfibrozil 600 mg tablet 600 mg PO BID 04/16/22 06/05/23 levetiracetam 1,000 mg tablet 1,000 mg PO BID 04/16/22 06/05/23 omega 9-vqt-iaa-fish oil 1,200 mg 1 cap PO DAILY 04/16/22 06/05/23 (144 mg-216 mg) capsule (Fish Oil) fobmsybdjvft-cftrcdee-ahlqvb tablet 1 tablet PO DAILY 02/05/23 06/05/23 pantoprazole 40 mg tablet,delayed 40 mg PO DAILY 02/05/23 06/05/23 release metoprolol succinate 50 mg 50 mg PO DAILY 05/01/23 06/05/23 tablet,extended release 24 hr Allergies Allergy/AdvReac Type Severity Reaction Status Date / Time No Known Allergies Allergy Verified 05/30/23:00 [facility] Past Medical History Medical History Acute blood loss anemia Acute hypokalemia Atherosclerotic heart disease of [place] coronary artery with unspecified angina pectoris Cerebral atherosclerosis Chronic GERD Chronic vascular disorders of intestine Epilepsy, unspecified, not intractable, without status epilepticus Essential (primary) hypertension Generalized anxiety disorder Glaucoma History of CVA (cerebrovascular accident) x4 without any residual Hyperlipidemia Hypertension Ischemic cardiomyopathy Nicotine dependence, chewing tobacco, with other nicotine-induced disorders Quit chewing tobacco in 2022 Nonspecific paroxysmal spell Proteinuria, unspecified Syncope Type 2 diabetes mellitus with other diabetic kidney complication Surgical History Surgical History History of bilateral knee replacement left 2009 right 2019 History of cataract extraction History of open reduction and internal fixation (ORIF) procedure Right hip fracture 02/05/2023 Hx of cholecystectomy 2000 Stented coronary artery x4 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 He had 3 children with his 1st and 2 children with his 2nd as far as he knows all of his children are healthy. 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 He reports that he smoked cigarettes for about 5-10 years when he was quite young. He used to occasionally smoke a cigar but has not done so in about 35 years. He denies any significant alcohol use. He ambulates with a walker. He no longer drives. Code
[2023-06-16 20:14] LABS: Magnesium 1.8 mg/dL (1.6-2.3); Phosphorus 3.6 mg/dL (2.5-4.5)
[2023-06-16] MEDS: SODIUM CHLORIDE 0.9% IV 2,000 ML 999 ML IV CONT (20:20)
[2023-06-16 20:27] LABS: NT Pro B Type Natriuretic Pept 646 pg/mL (19.9-100); Troponin I 0.024 ng/mL (0.000-0.034)
[2023-06-16 20:33] LABS: Lactic Acid Reflex 3.2 mmol/L (0.7-2.0)
[2023-06-16 20:54] LABS: Appearance Urine Clear (Clear); Bacteria Urine None Seen /hpf; Bilirubin Urine Negative (Negative); Blood Urine Negative (Negative); Color Urine Yellow (Yellow); Glucose Urine UA Negative (Negative); Ketones Urine Negative (Negative); Leukocyte Esterase Ur Trace LEU/UL (Negative); Need Manual Microscopic Reviewed; Nitrate Urine Negative (Negative); Protein Urine Negative (Negative); RBC Urine 0-2 /hpf (0-2); Squamous Epithelial Cell Urine None Seen /hpf (Few); Urobilinogen Urine 0.2 mg/dL (<2.0); WBC Urine 0-5 /hpf (0-3)
[2023-06-16 21:03] LABS: Influenza A QL RT-PCR Negative (Negative); Influenza B QL RT-PCR Negative (Negative); RSV RNA, RT-PCR Negative (Negative); SARS-CoV-2 RNA PCR Negative (Negative)
[2023-06-16 21:06] LABS: Add Urine Microscopic? YES; Specific Grav Ur 1.025 (1.001-1.035)
[2023-06-16 22:12] VITALS: BP 115/71; PULSE 110; O2SAT 97
[2023-06-16 22:36] LABS: Troponin I 0.087 ng/mL (0.000-0.034)
[2023-06-16] MEDS: PANTOPRAZOLE SODIUM IV 40 MG VIAL 80 MG IV PUSH (22:43)
[2023-06-16 22:53] LABS: Hematocrit 24.8 % (42.0-52.0); Hemoglobin 8.1 g/dL (14.0-18.0)
[2023-06-16 23:18] LABS: Reflex Lactic Acid Yes or No Add Lactic
--- NOTE | 2023-06-16 23:52 | ADMIMU ---
2345: This patient, Ramiro Enciso, was admitted to IMU status, and placed in IMU Room 205-02. Patient/family oriented to hospital policies and general routines including ID bracelet, bed and alarms, visiting hours, pain management, procedures, bathroom and other care routines, personal items, smoking policy, room service/diet, and visiting hours. Valuables list has been completed. Information on how to activate the Rapid Response Team has been discussed. Patient/Family are encouraged to report perceived risks to care and to ask questions if they do not understand what they are told or what they should do.
--- NOTE | 2023-06-16 23:56 | ADMGEN ---
2345: This patient, Ramiro Enciso, was admitted to IMU Room 205-02. Patient/family oriented to hospital policies and general routines including ID bracelet, bed and alarms, visiting hours, pain management, procedures, bathroom and other care routines, personal items, smoking policy, room service/diet, and visiting hours. Information on how to activate the Rapid Response Team has been discussed. Patient/Family are encouraged to report perceived risks to care and to ask questions if they do not understand what they are told or what they should do.
[2023-06-16 23:58] VITALS: BMI 19.9
[2023-06-17] VITALS (24 sets, daily range): BP systolic 91–122; BP diastolic 30–57; PULSE 83–118; RESP 16–28; TEMP 36.3–37.4; O2SAT 94–100
[2023-06-17] MEDS: SODIUM CHLORIDE 0.9% IV 1,000 ML 100 ML IV CONT ×2 (01:13→16:46)
--- NOTE | 2023-06-17 02:09 | PM.IMHP ---
H&P: HPI History of Present Illness Date/Time: 06/17/23 02:09 Chief Complaint: Diarrhea, not feeling good for couple days Narrative: 82-year-old male with past medical history of diverticulosis, gastritis, ischemic cardiomyopathy with preserved ejection fraction, epilepsy, essential hypertension, diabetes, multiple CVAs, chronic vertigo and other comorbidities who had recent diverticular bleed and subsequent recurrent admission for orthostatic hypotension who presented back to the ER via EMS from home due to nausea vomiting and diarrhea. Patient himself denies having recent vomiting but has evidence of dried emesis in his posterior oropharynx. EMS report states that patient was found lying in bed with a vomit stain next him. His report told EMS that he has had increased dizziness and weakness for couple of days worse so this morning. He has evidently been having loose stools for 3 or 4 days. Patient himself reports he has only has loose stools for 1. ER provider reported rectal exam demonstrated maroonish brown stool. Patient himself also reports recurrent symptoms of a flushed sensation from his head downward consistent with his prior symptoms of near-syncope. He also reports some chest discomfort and points to his epigastric area when discussing his chest discomfort. He reports that his chest was hurting for about 40-45 minutes before calling EMS. At the time my evaluation patient was alert oriented to person place and year. He was confused as to the month and initially reported the year was 1993 but did self corrected 2023. The patient during his last hospitalization had been able to tell me the name of the current president. The patient's report of his current symptoms is significantly different than the reports that his and ER provider noted. Patient seems more confused today than when I admitted him on May 29. He denies any abdominal pain. He still reports poor appetite. He denies any headache or vision changes. He denies difficulty with urination. Although he appears cachectic on exam is weight is stable compared to prior to admission. Colonoscopy 05/02/2023 performed due to hematochezia demonstrated colonic polyps and diverticulosis without perforation abscess but was acute bleeding. CT scan of the abdomen pelvis with contrast from April demonstrated stent in the SMA, diverticulosis without diverticulitis, prior cholecystectomy but no acute process. CT of the abdomen pelvis this visit demonstrated moderate esophagitis and mild gastritis with suggestion of focal outpouching at the junction the 1st and 2nd portion of duodenum may represent duodenal ulcer. Review of Systems Review of Systems: 12 systems were reviewed with pertinent positives and negatives per HPI. Except as documented in the HPI, all other systems were reviewed and are negative. Although the patient was not the best historian today. [facility] Past Medical History Medical History (Updated 06/17/23 @ 02:38 by Steph Gaines DO) Acute hypokalemia Atherosclerotic heart disease of [place] coronary artery with unspecified angina pectoris Cerebral atherosclerosis Chronic GERD Chronic vascular disorders of intestine Epilepsy, unspecified, not intractable, without status epilepticus Essential (primary) hypertension Generalized anxiety disorder Glaucoma History of CVA (cerebrovascular accident) x4 without any residual History of GI diverticular bleed April 2023 Hyperlipidemia Hypertension Ischemic cardiomyopathy Nicotine dependence, chewing tobacco, with other nicotine-induced disorders Quit chewing tobacco in 2022 Nonspecific paroxysmal spell Orthostatic tachycardia Proteinuria, unspecified Syncope Type 2 diabetes mellitus with other diabetic kidney complication Surgical History Surgical History History of bilateral knee replacement left 2009 right 2019 History of cataract extractio
[2023-06-17] MEDS: TUBING, BLOOD PLUM PUMP TUBING 1 EACH XX (03:17)
[2023-06-17] MEDS: PANTOPRAZOLE SODIUM IV 40 MG VIAL IV PUSH ×2 (08:59→20:22)
[2023-06-17] MEDS: levETIRAcetam 1000MG/NACL100ML 1,000 MG/100 ML BAG 400 MG IVPB (08:59)
[2023-06-17] MEDS: ACETAMINOPHEN 500 MG TABLET PO ×2 (09:02→16:46)
[2023-06-17 09:03] LABS: Hematocrit 29.3 % (42.0-52.0); Hemoglobin 9.6 g/dL (14.0-18.0); Mean Corpuscular HGB Conc 32.8 g/dl (32-36); Mean Corpuscular Hemoglobin 31.3 pg (26-34); Mean Corpuscular Volume 95.4 fl (80-100); Mean Platelet Volume 9.1 fl (7.4-10.4); Platelet Count Result 202 k/mm3 (150-375); Red Blood Count 3.07 M/mm3 (4.6-6.20); Red Cell Distribution Width 14.4 % (11.5-14.5); White Blood Count 8.2 K/mm3 (4.5-10.0)
[2023-06-17] MEDS: gemfibroziL 600 MG TABLET PO ×2 (09:08→16:46)
[2023-06-17 09:21] LABS: Anion Gap 3 mmol/L (4-12); Blood Urea Nitrogen 49 mg/dL (9-20); Calcium 8.7 mg/dL (8.4-10.2); Carbon Dioxide 22 mmol/L (22-30); Chloride 114 mmol/L (98-107); Estimated CRCL calculation 61 ml/min; Estimated Glomerular Filt Rate > 60; Glucose 89 mg/dL (65-110); Potassium 4.1 mmol/L (3.4-5.0); Sodium 139 mmol/L (137-145)
[2023-06-17 09:33] LABS: Troponin I 0.147 ng/mL (0.000-0.034)
--- NOTE | 2023-06-17 12:33 | WPDANESEPPF ---
Anes - Initial Pre Proc Eval Procedure: Operation Date: 06/17/23 13:30 Proposed Procedures p Esophagogastroduodenoscopy - Ti Brown MD Date/Time: 06/17/23 12:33 Surgeon: Steph Gaines DO Pre Op Diagnosis: GI Bleed Patient Data Age: 82 Gender: M Height: 1.78 m Weight: 63.1 kg Last Vital Signs Temp 36.8 C 06/17/23 12:00 Pulse 84 06/17/23 12:00 Resp 24 H 06/17/23 12:00 BP 107/44 L 06/17/23 12:00 Pulse Ox 99 06/17/23 12:00 O2 Del Method Room Air 06/17/23 07:52 Allergies Allergy/AdvReac Type Severity Reaction Status Date / Time No Known Allergies Allergy Verified 06/17/23 12:21 Home Medications Medication Instructions Recorded Confirmed Type aspirin 81 mg tablet,delayed 81 mg PO QAM #30 tabs 12/09/20 06/16/23 Rx release ascorbic acid (vitamin C) 500 mg 500 mg PO DAILY 06/29/21 06/16/23 History tablet vit C 250 mg-vit E 90 mg-zinc 40 1 tablet PO BID 06/29/21 06/16/23 History mg-copper 1 uh-ctalnx-rfzmxp capsule (PreserVision AREDS-2) vitamin B complex (B 1 tablet PO DAILY 06/29/21 06/16/23 History Complex-Vitamin B12 tablet) atorvastatin 40 mg tablet 40 mg PO QHS 01/25/22 06/16/23 History acetaminophen 500 mg capsule 500 mg PO BID 04/16/22 06/16/23 History cholecalciferol (vitamin D3) 125 50 mcg PO DAILY 04/16/22 06/16/23 History mcg (5,000 unit) capsule coenzyme Q10 100 mg capsule 200 mg PO DAILY 04/16/22 06/16/23 History gemfibrozil 600 mg tablet 600 mg PO BID 04/16/22 06/16/23 History levetiracetam 1,000 mg tablet 1,000 mg PO BID 04/16/22 06/16/23 History omega 0-cvd-fru-fish oil 1,200 mg 1 cap PO DAILY 04/16/22 06/16/23 History (144 mg-216 mg) capsule (Fish Oil) clopidogrel 75 mg tablet 75 mg PO DAILY #90 tabs 09/12/22 06/16/23 Rx qdkihaoolrjr-ulkklwbd-yhcoqi tablet 1 tablet PO DAILY 02/05/23 06/16/23 History pantoprazole 40 mg tablet,delayed 40 mg PO DAILY 02/05/23 06/16/23 History release metoprolol succinate 50 mg 50 mg PO DAILY 05/01/23 06/16/23 History tablet,extended release 24 hr Laboratory Tests 06/16/23 06/16/23 06/16/23 19:07 20:12 20:15 WBC 11.9 H K/mm3 (4.5-10.0) RBC 3.33 L M/mm3 (4.6-6.20) Hgb 10.5 L g/dL (14.0-18.0) Hct 31.9 L % (42.0-52.0) MCV 95.8 fl (80-100) MCH 31.5 pg (26-34) MCHC 32.9 g/dl (32-36) RDW 13.9 % (11.5-14.5) Plt Count 309 k/mm3 (150-375) MPV 9.0 fl (7.4-10.4) Immature Gran % (Auto) 0.8 H % (0-0.5) Neut % (Auto) 87.6 H % (45.5-73.1) Lymph % (Auto) 4.4 L % (18.3-44.2) Burt % (Auto) 6.9 % (2.6-8.5) Eos % (Auto) 0.0 % (0-4.4) Baso % (Auto) 0.3 % (0.2-1.2) Lymph # (Auto) 0.52 L K/mm3 (0.9-3.2) Burt # (Auto) 0.8 H K/mm3 (0.1-0.6) Eos # (Auto) 0.0 K/mm3 (0-0.3) Baso # (Auto) 0.0 K/mm3 (0.0-0.1) Abs Immat Gran (auto) 0.09 H K/mm3 (0.00-0.031) Absolute Neuts (auto) 10.4 H K/mm3 (1.3-6.7) Absolute Nucleated RBC 0.000 K/mm3 (0.0-0.012) Nucleated RBC % 0.0 % (0.0-0.2) Platelet Estimate Adequate (Adequate) Large Platelets Present Poikilocytosis 1+ Anisocytosis 1+ Microcytosis 1+ (NORMAL) Tear Drop Cells 1+ [place] Cells 1+ Schistocytes None seen Sodium 136 L mmol/L (137-145) Potassium 5.0 mmol/L (3.4-5.0) Chloride 99 mmol/L (98-107) Carbon Dioxide 26 mmol/L (22-30) Anion Gap 11 mmol/L (4-12) BUN 58 H D mg/dL (9-20) Creatinine 1.00 mg/dL (0.7-1.3) Estim Creat Clear Calc 44 ml/min Estimated GFR > 60 (59 - ) Glucose 167 H mg/dL (65-110) Lactic Acid 3.2 H mmol/L (0.7-2.0) Calcium 9.7 mg/dL
--- NOTE | 2023-06-17 12:43 | PC.NURSE ---
To GI Lab per @ [id number]] Report given to JUAN Shrestha
[2023-06-17] MEDS: LACTATED RINGERS 1,000 ML 150 ML IV CONT (12:47)
--- NOTE | 2023-06-17 13:22 | WPDGICN ---
Assessment and Plan Assessment and plan (1) GIB (gastrointestinal bleeding): Qualifiers: GI bleed type/associated pathology: unspecified gastrointestinal hemorrhage type Qualified Code(s): K92.2 - Gastrointestinal hemorrhage, unspecified Code(s): K92.2 - Gastrointestinal hemorrhage, unspecified Status: Acute Assessment and Plan: on iv protonix blood transfusion to keep hgb>7 will proceed with urgent EGD- here with coffee ground emesis, also noted abnormal duodenum by CT scan ? ulcer (2) Melena: Code(s): K92.1 - Melena Status: Acute Assessment and Plan: transfusion to keep hgb>7 egd iv protonix (3) Abnormal CT scan, gastrointestinal tract: Code(s): R93.3 - Abnormal findings on diagnostic imaging of other parts of digestive tract Status: Acute (4) Acute on chronic blood loss anemia: Code(s): D62 - Acute posthemorrhagic anemia Status: Acute (5) Ischemic cardiomyopathy: Code(s): I25.5 - Ischemic cardiomyopathy Status: Chronic (6) Type 2 diabetes mellitus with other diabetic kidney complication: Code(s): E11.29 - Type 2 diabetes mellitus with other diabetic kidney complication Status: Chronic (7) History of GI diverticular bleed: Code(s): Z87.19 - Personal history of other diseases of the digestive system Status: Acute Assessment and Plan: last month here with diverticular bleeding that was treated with colonoscopy and epi this presentation most likely upper GI source hold plavix and aspirin GI Consult Note Consult date/time: 06/17/23 13:22 Reason for consult: gib, coffee ground emesis HPI: Ramiro Enciso is a 82 year old male with past medical history of diverticulosis, ischemic cardiomyopathy with preserved ejection fraction, epilepsy, essential hypertension, diabetes, multiple CVAs, chronic vertigo recently admitted to hospital 1.5 month ago for GIB, he was found to have active diverticular bleeding in sigmoid at 25 cm from anal verge treated with epi injection, egd was unremarkable. This time he came back to ER via EMS from home due to nausea vomiting with coffee ground, also noted diarrhea.? His says that has been feeling dizzy with more generalized weakness for couple of days. ER noted maroonish brown stool.?He had some epigastric area. Denies using nsaid's, hs is on plavix and baby ASA. CT of the abdomen pelvis reviewed and showed moderate esophagitis and mild gastritis with suggestion of focal outpouching at the junction the 1st and 2nd portion of duodenum may represent duodenal ulcer. Hgb is down to 8 with high BUN 58 and normal creatinine. Given iv protonix and he is npo. Review of Systems Constitutional: Constitutional: Reports lethargy and Reports weakness Eyes: Eyes: Denies blurry vision ENT: Reports Normal hearing present Cardiovascular: Cardiovascular: Reports chest pain Respiratory: Respiratory: Denies cough Gastrointestinal: Gastrointestinal: Reports melena, Reports hematochezia, Reports vomiting and Reports hematemesis Genitourinary: Genitourinary: Denies dysuria Musculoskeletal: Musculoskeletal: Denies myalgias Integumentary/Breasts: Skin/Breast: Denies rash Neurologic: Denies Abnormal speech present Psychiatric: Psychiatric: Denies behavioral changes [facility] Past Medical History Medical History (Updated 06/17/23 @ 14:15 by Ti Brown MD) Abnormal CT scan, gastrointestinal tract Acute hypokalemia Acute on chronic blood loss anemia Atherosclerotic heart disease of [place] coronary artery with unspecified angina pectoris Cerebral atherosclerosis Chronic GERD Chronic vascular disorders of intestine Epilepsy, unspecified, not intractable, without status epilepticus Essential (primary) hypertension Generalized anxiety disorder Glaucoma History of CVA (cerebrovascular accident) x4 without any residual History of GI diverticular bleed April 2023 Hy
[2023-06-17] MEDS: EPINEPHrine INJ 1 MG/10 ML SYRINGE XX (13:44)
--- NOTE | 2023-06-17 15:06 | PC.NURSE ---
Returned from GI Lab @ [id number]. Report received from JUAN Moran
--- NOTE | 2023-06-17 15:31 | PM.IMPN ---
Progress Note: A&P Assessment and Plan (1) GIB (gastrointestinal bleeding): Qualifiers: GI bleed type/associated pathology: unspecified gastrointestinal hemorrhage type Qualified Code(s): K92.2 - Gastrointestinal hemorrhage, unspecified Code(s): K92.2 - Gastrointestinal hemorrhage, unspecified Status: Acute Assessment and Plan: The patient has residual what is likely coffee-ground emesis in his posterior oropharynx. At this time will hold patient's Plavix and aspirin. However elevated troponins likely due to demand ischemia from acute anemia in the setting of occlusive coronary artery disease that is not amenable for intervention. GI has been consulted. Will place patient on Protonix q.12 hours. Patient did receive 80 mg of Protonix load in the ER. Patient will be made NPO except for meds. PT is sp EGD today showing large DU continue iv protonix and clears (2) Ischemic cardiomyopathy: Code(s): I25.5 - Ischemic cardiomyopathy Status: Chronic Assessment and Plan: Patient does have mildly elevated troponin and has known occlusive coronary disease not amendable to intervention with last cardiac catheterization in 2021. Will continue 81 mg aspirin will hold Plavix given acute GI bleeding. (3) Essential (primary) hypertension: Code(s): I10 - Essential (primary) hypertension Status: Chronic Assessment and Plan: Bp are better. Continue IV fluid hydration and blood replacement and monitor. (4) Epilepsy, unspecified, not intractable, without status epilepticus: Qualifiers: Epilepsy type: unspecified Qualified Code(s): G40.909 - Epilepsy, unspecified, not intractable, without status epilepticus Code(s): G40.909 - Epilepsy, unspecified, not intractable, without status epilepticus Status: Acute Assessment and Plan: can change back to oral keppra Subjective Date/time seen: 06/17/23 15:31 Interval history: 82-year-old male with past medical history of diverticulosis, gastritis, ischemic cardiomyopathy with preserved ejection fraction, epilepsy, essential hypertension, diabetes, multiple CVAs, chronic vertigo and other comorbidities who had recent diverticular bleed and subsequent recurrent admission for orthostatic hypotension who presented back to the ER via EMS from home due to nausea vomiting and diarrhea. Colonoscopy 05/02/2023 performed due to hematochezia demonstrated colonic polyps and diverticulosis without perforation abscess but was acute bleeding.? CT scan of the abdomen pelvis with contrast from April demonstrated stent in the SMA, diverticulosis without diverticulitis, prior cholecystectomy but no? acute process.? CT of the abdomen pelvis this visit demonstrated moderate esophagitis and mild gastritis with suggestion of focal outpouching at the junction the 1st and 2nd portion of duodenum may represent duodenal ulcer. EGD shows DU pt allowed clear liquids today abdominal pain is better today Review of Systems Review of Systems: some abdominal pains Objective Data Vital Signs Vital Signs: Vital Signs - 24 hr 06/16/23 18:46 06/16/23 18:52 06/16/23 19:16 Temperature 36.7 C Pulse Rate 130 H 122 H 123 H Respiratory Rate 20 22 H Blood Pressure 94/70 L 105/65 Pulse Oximetry 95 93 Oxygen Delivery Room Air Oxygen Flow Rate 06/16/23 22:12 06/17/23 00:00 06/17/23 00:00 Temperature 36.5 C Pulse Rate 110 H 118 H 118 H Respiratory Rate 18 18 Blood Pressure 115/71 98/57 L Pulse Oximetry 97 98 98 Oxygen Delivery Room Air Oxygen Flow Rate 06/17/23 01:35 06/17/23 01:55 06/17/23 03:02 Temperature 36.4 C L 37.1 C 37.2 C Pulse Rate 108 H 110 H 99 Respiratory Rate 20 20 18 Blood Pressure 105/51 L 106/44 L 112/43 L Pulse Oximetry 96 96 96 Oxygen Delivery Oxygen Flow Rate 06/17/23 00:00 06/17/23 02:00 06/17/23 03:58 Temperature 37.4 C Pulse Rate 11
[2023-06-17 19:09] LABS: Hematocrit 23.4 % (42.0-52.0); Hemoglobin 7.8 g/dL (14.0-18.0)
[2023-06-17] MEDS: levETIRAcetam 500 MG TABLET 1000 MG PO (20:24)
[2023-06-17] MEDS: ATORVASTATIN 40 MG TABLET PO (20:24)
[2023-06-18] VITALS (10 sets, daily range): BP systolic 110–127; BP diastolic 38–55; PULSE 63–85; RESP 16–28; TEMP 36.2–36.7; O2SAT 99–100
[2023-06-18] LABS: Hematocrit 22.4 % (42.0-52.0); Hemoglobin 7.2 g/dL (14.0-18.0)
[2023-06-18] MEDS: SODIUM CHLORIDE 0.9% IV 1,000 ML 100 ML IV CONT ×2 (02:50→14:04)
--- NOTE | 2023-06-18 07:41 | PM.IMPN ---
Progress Note: A&P Assessment and Plan (1) History of GI diverticular bleed: Code(s): Z87.19 - Personal history of other diseases of the digestive system Status: Acute (2) Acute on chronic blood loss anemia: Code(s): D62 - Acute posthemorrhagic anemia Status: Acute (3) Abnormal CT scan, gastrointestinal tract: Code(s): R93.3 - Abnormal findings on diagnostic imaging of other parts of digestive tract Status: Acute (4) Melena: Code(s): K92.1 - Melena Status: Acute (5) GIB (gastrointestinal bleeding): Qualifiers: GI bleed type/associated pathology: unspecified gastrointestinal hemorrhage type Qualified Code(s): K92.2 - Gastrointestinal hemorrhage, unspecified Code(s): K92.2 - Gastrointestinal hemorrhage, unspecified Status: Acute (6) Ischemic cardiomyopathy: Code(s): I25.5 - Ischemic cardiomyopathy Status: Chronic (7) CAD (coronary artery disease): Code(s): I25.10 - Atherosclerotic heart disease of [place] coronary artery without angina pectoris Status: Inactive Plan A pleasant 82-year-old male with past medical history diverticulosis with acute lower GI bleed, gastritis/peptic ulcer disease, ischemic cardiomyopathy with preserved ejection fraction, coronary artery disease status post Megatron stent to great complex ostial stenosis of the right coronary artery in 05/2021, 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 Status post EGD on 06/17/2023 15 mm duodenal ulcer large tear without perforation status post epinephrine and 3 resolution clips. #Acute GI bleed/duodenal ulcer and tear -on 06/[address] Rogel status post epinephrine and 3 resolution clips to large duodenal ulcer and tear. -patient currently asymptomatic. Has not had bowel movement since admission. No nausea no vomiting. -continue IV Protonix b.i.d. and hold Plavix/aspirin per GI. With his cardiac and vascular history will need to restart Plavix and aspirin after risks versus benefit discussion and recommendation from GI. -his baseline hemoglobin has large variance. Goal greater than 8. -it seems overnight his hemoglobin was 7.8 and then 7.2. Although he was not transfused. Repeat hemoglobin at this time and transfuse if hemoglobin less than 8 grams/deciliter. -currently on clear liquid diet per GI #Coronary artery disease -hopefully can restart aspirin and Plavix as soon as possible. #Elevated troponin -will check another. No acute ischemia. Patient has no chest pain or chest pain equivalents. -likely due to demand ischemia FEN: Normal saline at 100 cc/hour. Clear liquid diet. GI prophylaxis: Protonix 40 mg IV b.i.d. DVT prophylaxis: SCDs only Lines: Peripheral IV Code Status: DNR Dispo: Stable. Subjective Date/time seen: 06/18/23 07:41 Interval history: No acute overnight events. Patient has no complaints. He denies chest pain abdominal pain vomiting nausea or any bowel movement since admission. Review of Systems Review of Systems: All systems reviewed & are unremarkable except as noted in HPI and below (Subjective) Exam Const: General: comfortable and no acute distress Other: A&O x3 HENMT: Mouth: Yes dry mucous membranes Eyes: Pupils: Equal, round and reactive pupils present Neck: Neck: supple Resp: Effort & Inspection: normal respiratory effort Auscultation: clear to auscultation bilaterally Cardio: Rate: regular rate Rhythm: regular rhythm GI: GI Palp: Yes Soft to palpation and No Tenderness to palpation present (GI) Extrem: General: no edema Objective Data Vital Signs Vital Signs: Vital Signs - 24 hr 06/17/23 07:52 06/17/23 08:00 06/17/23 08:00 Temperature 97.6 F Pulse Rate 85 85 Respiratory Rate 18 Blood Pressure 1
[2023-06-18 07:57] LABS: Basophils Percent Auto 0.7 % (0.2-1.2); Eosinophils Absolute Auto 0.2 K/mm3 (0-0.3); Eosinophils Percent Auto 3.1 % (0-4.4); Hematocrit 21.5 % (42.0-52.0); Immature Granulocyte Absolute 0.03 K/mm3 (0.00-0.031); Immature Granulocyte Percent A 0.6 % (0-0.5); Lymphocytes Absolute Auto 0.97 K/mm3 (0.9-3.2); Mean Corpuscular HGB Conc 32.6 g/dl (32-36); Mean Corpuscular Hemoglobin 31.3 pg (26-34); Monocytes Absolute Auto 0.6 K/mm3 (0.1-0.6); Monocytes Percent Auto 10.2 % (2.6-8.5); Neutrophils Absolute Auto 3.6 K/mm3 (1.3-6.7); Neutrophils Percent Auto 67.4 % (45.5-73.1); Platelet Count Result 172 k/mm3 (150-375); Red Blood Count 2.24 M/mm3 (4.6-6.20); Red Cell Distribution Width 14.6 % (11.5-14.5); White Blood Count 5.4 K/mm3 (4.5-10.0)
[2023-06-18 08:06] LABS: Anion Gap 3 mmol/L (4-12); Blood Urea Nitrogen 37 mg/dL (9-20); Calcium 8.6 mg/dL (8.4-10.2); Carbon Dioxide 18 mmol/L (22-30); Chloride 118 mmol/L (98-107); Estimated CRCL calculation 72 ml/min; Estimated Glomerular Filt Rate > 60; Glucose 87 mg/dL (65-110); Potassium 3.9 mmol/L (3.4-5.0); Sodium 139 mmol/L (137-145)
--- NOTE | 2023-06-18 09:14 | WPDANESPN ---
Anes - Prog Note Post-Op Date/Time: 06/18/23 09:14 Cardiovascular status: normal Respiratory status: normal Airway patency: baseline Mental status: baseline Post-Op hydration status: normal Vital Signs: Last Vital Signs Temp 36.4 C 06/18/23 07:47 Pulse 71 06/18/23 07:47 Resp 18 06/18/23 07:47 BP 110/52 L 06/18/23 07:47 Pulse Ox 99 06/18/23 07:47 O2 Del Method Room Air 06/17/23 20:00 O2 Flow Rate 4 06/17/23 14:09 Pain Score (VAS): 0 I/O: Intake & Output 06/17/23 06/18/23 06/18/23 23:59 07:59 15:59 Intake Total 320 1075 240 Output Total 900 Balance 320 175 240 Laboratory Tests 06/18/23 07:42 06/18/23 07:42 06/16/23 06/17/23 06/17/23 22:49 08:52 19:01 WBC RBC Hgb 7.8 L Hct 23.4 L MCV MCH MCHC RDW Plt Count MPV Immature Gran % (Auto) Neut % (Auto) Lymph % (Auto) [place] % (Auto) Eos % (Auto) Baso % (Auto) Lymph # (Auto) [place] # (Auto) Eos # (Auto) Baso # (Auto) Abs Immat Gran (auto) Absolute Neuts (auto) Absolute Nucleated RBC Nucleated RBC % Sodium 139 Potassium 4.1 Chloride 114 H Carbon Dioxide 22 Anion Gap 3 L BUN 49 H Creatinine 0.70 Estim Creat Clear Calc 61 Estimated GFR > 60 Glucose 89 Calcium 8.7 Troponin I 0.147 H* Blood Type A Positive Antibody Screen Negative Crossmatch See Detail 06/17/23 06/18/23 23:51 07:42 WBC 5.4 RBC 2.24 L Hgb 7.2 L 7.0 L* Hct 22.4 L 21.5 L MCV 96.0 MCH 31.3 MCHC 32.6 RDW 14.6 H Plt Count 172 MPV 9.0 Immature Gran % (Auto) 0.6 H Neut % (Auto) 67.4 Lymph % (Auto) 18.0 L [place] % (Auto) 10.2 H Eos % (Auto) 3.1 Baso % (Auto) 0.7 Lymph # (Auto) 0.97 [place] # (Auto) 0.6 Eos # (Auto) 0.2 Baso # (Auto) 0.0 Abs Immat Gran (auto) 0.03 Absolute Neuts (auto) 3.6 Absolute Nucleated RBC 0.000 Nucleated RBC % 0.0 Sodium 139 Potassium 3.9 Chloride 118 H Carbon Dioxide 18 L Anion Gap 3 L BUN 37 H D Creatinine 0.60 L Estim Creat Clear Calc 72 Estimated GFR > 60 Glucose 87 Calcium 8.6 Troponin I 0.050 H* Blood Type Antibody Screen Crossmatch Microbiology 06/16/23 20:15 Blood Blood Culture - Preliminary Gram Variable Bacilli 06/16/23 20:12 Blood Blood Culture - Preliminary Post-procedural complaints: none Patient Feedback: Patient satisfied with anesthetic care.
[2023-06-18] MEDS: VITAMIN B COMPLEX CAPSULE 1 CAP PO (09:17)
[2023-06-18] MEDS: levETIRAcetam 500 MG TABLET 1000 MG PO ×2 (09:18→20:52)
[2023-06-18] MEDS: CHOLECALCIFEROL 1,000 UNITS TABLET 2000 UNITS PO (09:18)
[2023-06-18] MEDS: PANTOPRAZOLE SODIUM IV 40 MG VIAL IV PUSH ×2 (09:18→20:53)
[2023-06-18] MEDS: OMEGA 3 POLYUNSAT FATTY ACIDS 1 GM CAP PO (09:18)
[2023-06-18] MEDS: ACETAMINOPHEN 500 MG TABLET PO ×2 (09:19→17:38)
[2023-06-18] MEDS: OPTI-GEN TAB 1 TABLET PO (09:19)
[2023-06-18] MEDS: METOPROLOL SUCCINATE EXT REL 50 MG TABCR PO (09:19)
[2023-06-18] MEDS: TUBING, BLOOD PLUM PUMP TUBING 1 EACH XX (12:41)
[2023-06-18] MEDS: SODIUM CHLORIDE 0.9% IV 250 ML 30 ML IV CONT (12:41)
--- NOTE | 2023-06-18 15:29 | WPDGIPROGNO ---
Progress Note: A&P Assessment and Plan (1) GIB (gastrointestinal bleeding): Qualifiers: GI bleed type/associated pathology: unspecified gastrointestinal hemorrhage type Qualified Code(s): K92.2 - Gastrointestinal hemorrhage, unspecified Code(s): K92.2 - Gastrointestinal hemorrhage, unspecified Status: Acute Assessment and Plan: active bleeding- duodenal source with ulcer and tear, treated yesterday endoscopically and bleeding controlled continue with protonix and monitor for signs of bleeding will advance diet (2) Melena: Code(s): K92.1 - Melena Status: Acute Assessment and Plan: expect to see melena for another day or so (3) Acute on chronic blood loss anemia: Code(s): D62 - Acute posthemorrhagic anemia Status: Acute Assessment and Plan: monitor for more signs of bleeding keep hgb>7 patient received blood transfusion (4) Duodenal ulcer: Code(s): K26.9 - Duodenal ulcer, unspecified as acute or chronic, without hemorrhage or perforation Status: Acute (5) Serosal tear of duodenum: Code(s): S36.430A - Laceration of duodenum, initial encounter Status: Acute (6) History of GI diverticular bleed: Code(s): Z87.19 - Personal history of other diseases of the digestive system Status: Acute Assessment and Plan: interesting he had recent hospitalization with LGIB due to colon diverticula (7) Type 2 diabetes mellitus with other diabetic kidney complication: Code(s): E11.29 - Type 2 diabetes mellitus with other diabetic kidney complication Status: Chronic Subjective Date/time seen: 06/18/23 15:29 Interval history: egd yesterday with bleeding from duodenal ulcer with tear, treated with clips, gold probe and epinephrine he denies any more bleeding and he is comfortable is at bedside Review of Systems Review of Systems: All systems reviewed & are unremarkable except as noted in HPI and below Exam Const: General: comfortable and no acute distress Other: A&O x3 HENMT: Mouth: Yes dry mucous membranes Eyes: Sclera: sclerae normal Neck: Neck: supple Resp: Effort & Inspection: normal respiratory effort Auscultation: clear to auscultation bilaterally Cardio: Rate: regular rate Rhythm: regular rhythm GI: GI Palp: Yes Soft to palpation and No Tenderness to palpation present (GI) Auscultation: normal bowel sounds Skin: General skin exam: normal color Neuro: Speech: normal speech Motor exam (neuro): 5/5 motor strength present throughout Extrem: General: no edema Psych: Affect: normal affect Objective Data Vital Signs Vital Signs: Vital Signs - 24 hr 06/17/23 16:00 06/17/23 20:00 06/18/23 00:21 Temperature 97.4 F L 98.0 F Pulse Rate 95 95 85 Respiratory Rate 28 H 28 H 28 H Blood Pressure 117/47 L 114/38 L Pulse Oximetry 100 100 100 Oxygen Delivery Room Air 06/18/23 07:47 06/18/23 09:19 06/18/23 10:41 Temperature 97.6 F 97.3 F L Pulse Rate 71 72 65 Respiratory Rate 18 18 Blood Pressure 110/52 L 115/48 L Pulse Oximetry 99 100 Oxygen Delivery 06/18/23 10:59 06/18/23 11:01 06/18/23 11:02 Temperature 97.2 F L 97.2 F L 97.2 F L Pulse Rate 65 65 65 Respiratory Rate 16 16 16 Blood Pressure 113/48 L 112/48 L 112/48 L Pulse Oximetry 100 100 100 Oxygen Delivery 06/18/23 12:02 06/18/23 08:00 Temperature 97.5 F L Pulse Rate 69 Respiratory Rate 16 Blood Pressure 127/55 L Pulse Oximetry 100 Oxygen Delivery Room Air Intake/Output Intake/Output: Intake & Output 06/15/23 06/16/23 06/17/23 06/18/23 23:59 23:59 23:59 23:59 Intake Total 1999 2170 2555 Output Total 350 1600 Balance 1999 6562 107 Meds/Results Medications: Active Medications Generic Name Dose Route Start Last Admin Trade Name Gioq PRN Reason Stop Dose Admin Acetaminophen 500 mg 06/17/23 09:00 06/18/23 09:19 Acetaminophen 500 Mg Tablet PO 500 mg
[2023-06-18 17:05] LABS: Glucose Point of Care 84 mg/dl (65-105)
[2023-06-18] MEDS: gemfibroziL 600 MG TABLET PO (17:38)
[2023-06-18 18:12] LABS: Hematocrit 27.1 % (42.0-52.0); Hemoglobin 8.9 g/dL (14.0-18.0)
[2023-06-18] MEDS: ATORVASTATIN 40 MG TABLET PO (20:52)
[2023-06-19 00:01] LABS: Hematocrit 24.7 % (42.0-52.0); Hemoglobin 8.2 g/dL (14.0-18.0)
[2023-06-19] MEDS: SODIUM CHLORIDE 0.9% IV 1,000 ML 100 ML IV CONT (00:10)
[2023-06-19 05:15] VITALS: BP 116/51; PULSE 80; RESP 20; TEMP 36.8; O2SAT 98
[2023-06-19] MEDS: gemfibroziL 600 MG TABLET PO ×2 (06:29→16:56)
[2023-06-19] MEDS: CHOLECALCIFEROL 1,000 UNITS TABLET 2000 UNITS PO (08:42)
[2023-06-19] MEDS: OPTI-GEN TAB 1 TABLET PO (08:42)
[2023-06-19] MEDS: OMEGA 3 POLYUNSAT FATTY ACIDS 1 GM CAP PO (08:42)
[2023-06-19] MEDS: PANTOPRAZOLE SODIUM IV 40 MG VIAL IV PUSH ×2 (08:42→20:20)
[2023-06-19 08:43] LABS: Glucose Point of Care 78 mg/dl (65-105)
[2023-06-19] MEDS: levETIRAcetam 500 MG TABLET 1000 MG PO ×2 (08:43→21:09)
[2023-06-19] MEDS: ACETAMINOPHEN 500 MG TABLET PO ×2 (08:43→16:56)
[2023-06-19 08:44] VITALS: PULSE 67
[2023-06-19] MEDS: VITAMIN B COMPLEX CAPSULE 1 CAP PO (08:44)
[2023-06-19] MEDS: METOPROLOL SUCCINATE EXT REL 50 MG TABCR PO (08:44)
[2023-06-19 12:20] LABS: Glucose Point of Care 92 mg/dl (65-105)
--- NOTE | 2023-06-19 12:50 | WPDGIPROGNO ---
Progress Note: A&P Assessment and Plan (1) GIB (gastrointestinal bleeding): Qualifiers: GI bleed type/associated pathology: unspecified gastrointestinal hemorrhage type Qualified Code(s): K92.2 - Gastrointestinal hemorrhage, unspecified Code(s): K92.2 - Gastrointestinal hemorrhage, unspecified Status: Acute Assessment and Plan: active bleeding- duodenal source with ulcer and tear, treated endoscopically and bleeding controlled continue with protonix and monitor for signs of bleeding tolerating diet he had large amount of blood in stomach/small bowel 2 days, it is not unusual to still see dark tarry stool but will keep monitoring for more obvious bleeding trend h/h (2) Melena: Code(s): K92.1 - Melena Status: Acute (3) Acute on chronic blood loss anemia: Code(s): D62 - Acute posthemorrhagic anemia Status: Acute Assessment and Plan: monitor for more signs of bleeding keep hgb>7 patient received blood transfusion (4) Duodenal ulcer: Code(s): K26.9 - Duodenal ulcer, unspecified as acute or chronic, without hemorrhage or perforation Status: Acute (5) Serosal tear of duodenum: Code(s): S36.430A - Laceration of duodenum, initial encounter Status: Acute (6) History of GI diverticular bleed: Code(s): Z87.19 - Personal history of other diseases of the digestive system Status: Acute Assessment and Plan: interesting he had recent hospitalization with LGIB due to colon diverticula (7) Type 2 diabetes mellitus with other diabetic kidney complication: Code(s): E11.29 - Type 2 diabetes mellitus with other diabetic kidney complication Status: Chronic Subjective Date/time seen: 06/19/23 12:50 Interval history: today had dark tarry stool but doing ok and having lunch Review of Systems Review of Systems: All systems reviewed & are unremarkable except as noted in HPI and below Exam Const: General: comfortable and no acute distress Other: A&O x3 HENMT: Mouth: Yes dry mucous membranes Eyes: Sclera: sclerae normal Neck: Neck: supple Resp: Effort & Inspection: normal respiratory effort Auscultation: clear to auscultation bilaterally Cardio: Rate: regular rate Rhythm: regular rhythm GI: GI Palp: Yes Soft to palpation and No Tenderness to palpation present (GI) Auscultation: normal bowel sounds Skin: General skin exam: normal color Neuro: Speech: normal speech Motor exam (neuro): 5/5 motor strength present throughout Extrem: General: no edema Psych: Affect: normal affect Objective Data Vital Signs Vital Signs: Vital Signs - 24 hr 06/18/23 16:00 06/18/23 21:00 06/18/23 20:00 Temperature 98.1 F 97.8 F Pulse Rate 73 63 Respiratory Rate 16 20 Blood Pressure 123/50 L 114/47 L Pulse Oximetry 100 100 Oxygen Delivery Room Air 06/19/23 05:15 06/19/23 08:44 Temperature 98.3 F Pulse Rate 80 67 Respiratory Rate 20 Blood Pressure 116/51 L Pulse Oximetry 98 Oxygen Delivery Intake/Output Intake/Output: Intake & Output 06/16/23 06/17/23 06/18/23 06/19/23 23:59 23:59 23:59 23:59 Intake Total 1999 2170 3035 2640 Output Total 350 2750 1200 Balance 1999 6659 420 9214 Meds/Results Medications: Active Medications Generic Name Dose Route Start Last Admin Trade Name Meg PRN Reason Stop Dose Admin Acetaminophen 500 mg 06/17/23 09:00 06/19/23 08:43 Acetaminophen 500 Mg Tablet PO 500 mg BID EMELINA Administration Atorvastatin Calcium 40 mg 06/17/23 21:00 06/18/23 20:52 Atorvastatin 40 Mg Tablet PO 40 mg QHS EMELINA Administration Fish Oil 1 gm 06/17/23 09:00 06/19/23 08:42 [place] 3 Polyunsat Fatty Acids 1 Gm Cap PO 1 gm DAILY EMELINA Administration Gemfibrozil 600 mg 06/17/23 07:30 06/19/23 06:29 Gemfibrozil 600 Mg Tablet PO 600 mg 0730,1630 EMELINA Administration Levetiracetam 1,000 mg 06/17/23 09:00 06/19/23 08:43 Levet
[2023-06-19 14:00] VITALS: BP 114/53; PULSE 70; RESP 16; TEMP 36.5; O2SAT 100
[2023-06-19 14:57] LABS: Hematocrit 29.1 % (42.0-52.0); Hemoglobin 9.5 g/dL (14.0-18.0); Mean Corpuscular HGB Conc 32.6 g/dl (32-36); Mean Corpuscular Hemoglobin 31.8 pg (26-34); Mean Corpuscular Volume 97.3 fl (80-100); Mean Platelet Volume 8.9 fl (7.4-10.4); Platelet Count Result 199 k/mm3 (150-375); Red Blood Count 2.99 M/mm3 (4.6-6.20); Red Cell Distribution Width 14.1 % (11.5-14.5); White Blood Count 4.8 K/mm3 (4.5-10.0)
--- NOTE | 2023-06-19 15:08 | PM.IMPN ---
Progress Note: A&P Assessment and Plan (1) History of GI diverticular bleed: Code(s): Z87.19 - Personal history of other diseases of the digestive system Status: Acute (2) Acute on chronic blood loss anemia: Code(s): D62 - Acute posthemorrhagic anemia Status: Acute (3) Abnormal CT scan, gastrointestinal tract: Code(s): R93.3 - Abnormal findings on diagnostic imaging of other parts of digestive tract Status: Acute (4) Melena: Code(s): K92.1 - Melena Status: Acute (5) GIB (gastrointestinal bleeding): Qualifiers: GI bleed type/associated pathology: unspecified gastrointestinal hemorrhage type Qualified Code(s): K92.2 - Gastrointestinal hemorrhage, unspecified Code(s): K92.2 - Gastrointestinal hemorrhage, unspecified Status: Acute (6) Ischemic cardiomyopathy: Code(s): I25.5 - Ischemic cardiomyopathy Status: Chronic (7) CAD (coronary artery disease): Code(s): I25.10 - Atherosclerotic heart disease of [place] coronary artery without angina pectoris Status: Inactive Plan A pleasant 82-year-old male with past medical history diverticulosis with acute lower GI bleed, gastritis/peptic ulcer disease, ischemic cardiomyopathy with preserved ejection fraction, coronary artery disease status post Megatron stent to great complex ostial stenosis of the right coronary artery in 05/2021, 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 Status post EGD on 06/17/2023 15 mm duodenal ulcer large tear without perforation status post epinephrine and 3 resolution clips. #Acute GI bleed/duodenal ulcer and tear -on 06/[address] Rogel status post epinephrine and 3 resolution clips to large duodenal ulcer and tear. -patient currently asymptomatic. He has dark color bowel movement since the EGD. However that is to be expected. Following, the patient is tolerating a solid diet. He is hemodynamically stable and his hemoglobin is stable. -continue IV Protonix b.i.d. on admission the patient presented taking Plavix and aspirin at home. Considering his stent was placed more than a year ago we could start him on Plavix alone and have him follow-up with Cardiology. He is certainly at a high bleeding risk of aspirin given the duodenal ulcer with tear. The adverse effects risk and benefits of medications versus bleeding have been discussed with him in the spouse to which they agree to this plan. -goal hemoglobin greater than 8 considering the patient's cardiac history. Transfuse as necessary. Check hemoglobin at midnight and again in the morning. #Coronary artery disease -restart Plavix as above when okay with GI. #Elevated troponin -minimal elevation already peaked. No acute ischemia identified on EKG. Patient has no chest pain or chest pain equivalents. -likely due to demand ischemia FEN: Solid diet. GI prophylaxis: Protonix 40 mg IV b.i.d. DVT prophylaxis: SCDs only Lines: Peripheral IV Code Status: DNR Dispo: Stable. Subjective Date/time seen: 06/19/23 15:08 Interval history: No acute overnight events. The patient is seen sitting up in chair spouse is at bedside. They have no concerns. The patient has no complaints. He does report he had a feel bowel movements today which were dark in color. He is tolerating a solid diet. Review of Systems Review of Systems: All systems reviewed & are unremarkable except as noted in HPI and below (Subjective) Exam Const: General: comfortable and no acute distress Other: A&O x3 HENMT: Mouth: Yes dry mucous membranes Eyes: Pupils: Equal, round and reactive pupils present Neck: Neck: supple Resp: Effort & Inspection: normal respiratory effort Auscultation: clear to auscultation bilaterally Cardio: Rate: regular ra
[2023-06-19 15:12] LABS: Anion Gap 5 mmol/L (4-12); Blood Urea Nitrogen 14 mg/dL (9-20); Calcium 8.7 mg/dL (8.4-10.2); Carbon Dioxide 20 mmol/L (22-30); Chloride 110 mmol/L (98-107); Estimated CRCL calculation 67 ml/min; Estimated Glomerular Filt Rate > 60; Glucose 111 mg/dL (65-110); Potassium 3.8 mmol/L (3.4-5.0); Sodium 135 mmol/L (137-145)
[2023-06-19 17:04] LABS: Glucose Point of Care 88 mg/dl (65-105)
[2023-06-19] MEDS: ATORVASTATIN 40 MG TABLET PO (20:20)
[2023-06-19 20:53] VITALS: BP 131/61; PULSE 67; RESP 20; TEMP 36.4; O2SAT 100
[2023-06-20 00:25] LABS: Hematocrit 24.9 % (42.0-52.0); Hemoglobin 8.4 g/dL (14.0-18.0)
[2023-06-20 05:31] LABS: Hematocrit 27.8 % (42.0-52.0); Hemoglobin 8.9 g/dL (14.0-18.0); Mean Corpuscular Hemoglobin 31.1 pg (26-34); Mean Corpuscular Volume 97.2 fl (80-100); Mean Platelet Volume 8.6 fl (7.4-10.4); Platelet Count Result 200 k/mm3 (150-375); Red Blood Count 2.86 M/mm3 (4.6-6.20); Red Cell Distribution Width 13.8 % (11.5-14.5); White Blood Count 4.2 K/mm3 (4.5-10.0)
[2023-06-20 05:42] LABS: Anion Gap 5 mmol/L (4-12); Blood Urea Nitrogen 10 mg/dL (9-20); Calcium 8.6 mg/dL (8.4-10.2); Carbon Dioxide 21 mmol/L (22-30); Chloride 110 mmol/L (98-107); Estimated CRCL calculation 77 ml/min; Estimated Glomerular Filt Rate > 60; Glucose 82 mg/dL (65-110); Potassium 3.3 mmol/L (3.4-5.0); Sodium 136 mmol/L (137-145)
[2023-06-20 06:00] VITALS: BP 101/46; PULSE 65; RESP 20; TEMP 36.3; O2SAT 99
[2023-06-20] MEDS: gemfibroziL 600 MG TABLET PO (06:30)
[2023-06-20 08:45] VITALS: PULSE 86; O2SAT 98
[2023-06-20] MEDS: levETIRAcetam 500 MG TABLET 1000 MG PO (09:02)
[2023-06-20] MEDS: OMEGA 3 POLYUNSAT FATTY ACIDS 1 GM CAP PO (09:02)
[2023-06-20] MEDS: PANTOPRAZOLE SODIUM IV 40 MG VIAL IV PUSH (09:02)
[2023-06-20] MEDS: CHOLECALCIFEROL 1,000 UNITS TABLET 2000 UNITS PO (09:03)
[2023-06-20] MEDS: OPTI-GEN TAB 1 TABLET PO (09:03)
[2023-06-20 09:04] VITALS: PULSE 86
[2023-06-20] MEDS: VITAMIN B COMPLEX CAPSULE 1 CAP PO (09:04)
[2023-06-20] MEDS: METOPROLOL SUCCINATE EXT REL 50 MG TABCR PO (09:04)
[2023-06-20] MEDS: ACETAMINOPHEN 500 MG TABLET PO (09:06)
--- NOTE | 2023-06-20 13:57 | WPDGIPROGNO ---
Progress Note: A&P Assessment and Plan (1) GIB (gastrointestinal bleeding): Qualifiers: GI bleed type/associated pathology: unspecified gastrointestinal hemorrhage type Qualified Code(s): K92.2 - Gastrointestinal hemorrhage, unspecified Code(s): K92.2 - Gastrointestinal hemorrhage, unspecified Status: Acute Assessment and Plan: active bleeding- duodenal source with ulcer and tear, treated endoscopically and bleeding controlled continue with protonix- he can go home with oral protonix, no more signs of bleeding and hgb stable now tolerating diet follow-up office in 3-4 weeks (2) Melena: Code(s): K92.1 - Melena Status: Acute (3) Acute on chronic blood loss anemia: Code(s): D62 - Acute posthemorrhagic anemia Status: Acute Assessment and Plan: no more signs of bleeding patient received blood transfusion (4) Duodenal ulcer: Code(s): K26.9 - Duodenal ulcer, unspecified as acute or chronic, without hemorrhage or perforation Status: Acute (5) Serosal tear of duodenum: Code(s): S36.430A - Laceration of duodenum, initial encounter Status: Acute (6) History of GI diverticular bleed: Code(s): Z87.19 - Personal history of other diseases of the digestive system Status: Acute Assessment and Plan: interesting he had recent hospitalization with LGIB due to colon diverticula (7) Type 2 diabetes mellitus with other diabetic kidney complication: Code(s): E11.29 - Type 2 diabetes mellitus with other diabetic kidney complication Status: Chronic Subjective Date/time seen: 06/20/23 13:57 Interval history: last BM was normal, he is doing ok Review of Systems Review of Systems: All systems reviewed & are unremarkable except as noted in HPI and below Exam Const: General: comfortable and no acute distress Other: A&O x3 HENMT: Mouth: Yes dry mucous membranes Eyes: Sclera: sclerae normal Neck: Neck: supple Resp: Effort & Inspection: normal respiratory effort Auscultation: clear to auscultation bilaterally Cardio: Rate: regular rate Rhythm: regular rhythm GI: GI Palp: Yes Soft to palpation and No Tenderness to palpation present (GI) Auscultation: normal bowel sounds Skin: General skin exam: normal color Neuro: Speech: normal speech Motor exam (neuro): 5/5 motor strength present throughout Extrem: General: no edema Psych: Affect: normal affect Objective Data Vital Signs Vital Signs: Vital Signs - 24 hr 06/19/23 14:00 06/19/23 19:47 06/19/23 20:53 Temperature 97.7 F 97.6 F Pulse Rate 70 67 Respiratory Rate 16 20 Blood Pressure 114/53 L 131/61 Pulse Oximetry 100 100 Oxygen Delivery Room Air 06/20/23 06:00 06/20/23 09:04 06/20/23 08:45 Temperature 97.4 F L Pulse Rate 65 86 86 Respiratory Rate 20 Blood Pressure 101/46 L Pulse Oximetry 99 98 Oxygen Delivery Room Air 06/20/23 11:34 Temperature Pulse Rate Respiratory Rate Blood Pressure Pulse Oximetry Oxygen Delivery Room Air Intake/Output Intake/Output: Intake & Output 06/17/23 06/18/23 06/19/23 06/20/23 23:59 23:59 23:59 23:59 Intake Total 2170 3035 3120 640 Output Total 350 2750 2200 1600 Balance 1820 285 920 -960 Meds/Results Medications: Active Medications Generic Name Dose Route Start Last Admin Trade Name Meg PRN Reason Stop Dose Admin Acetaminophen 500 mg 06/17/23 09:00 06/20/23 09:06 Acetaminophen 500 Mg Tablet PO 500 mg BID EMELINA Administration Atorvastatin Calcium 40 mg 06/17/23 21:00 06/19/23 20:20 Atorvastatin 40 Mg Tablet PO 40 mg QHS EMELINA Administration Fish Oil 1 gm 06/17/23 09:00 06/20/23 09:02 [place] 3 Polyunsat Fatty Acids 1 Gm Cap PO 1 gm DAILY EMELINA Administration Gemfibrozil 600 mg 06/17/23 07:30 06/20/23 06:30 Gemfibrozil 600 Mg Tablet PO 600 mg 0730,1630 EMELINA Administration Levetiracetam 1,000 mg 06/17/23 09:0
--- NOTE | 2023-06-20 14:07 | PM.DS ---
DS: Admitting Diagnosis Discharge Date June 20, 2023 Admitting Diagnosis Nausea vomiting diarrhea DS: Discharge Diagnosis Discharge Diagnosis (1) Serosal tear of duodenum: Code(s): S36.430A - Laceration of duodenum, initial encounter Status: Acute (2) Duodenal ulcer: Code(s): K26.9 - Duodenal ulcer, unspecified as acute or chronic, without hemorrhage or perforation Status: Acute DS: Summary Hospital Course Hospital Course: This is a very pleasant 82-year-old male with a past medical history diverticulosis with history of acute lower GI bleed, gastritis/peptic ulcer disease, ischemic cardiomyopathy with preserved ejection fraction, coronary artery disease status post Megatron stent to great complex ostial stenosis of the right coronary artery in 05/2021, 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 He underwent EGD with Dr. Rogel on 06/17/2023 demonstrating a 15 mm duodenal ulcer and a large tear without perforation with epinephrine and 3 resolution clips applied. He received blood transfusion post EGD on 06/18/2023 due to a hemoglobin of 7 and a history of coronary artery disease. The days after his hemoglobin was stable between 8 and 9. His bowel movements began to resolve from very dark to more brown in color and he has been tolerating diet. Therefore he is discharged in stable condition to home with home health will be discharged on Protonix 40 mg p.o. b.i.d. for 4 weeks. He is to follow-up with his primary care within 2 weeks and with GI within 4 weeks. Adverse effects, risks, benefits have been discussed with him and the on medications and they are in understanding and agreement with this plan. 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 The risks versus benefits were discussed with the patient and the and considering his last stent was in 2021 they elected to take aspirin off for now and continue Plavix only. They know to watch out for bleeding and are in acceptance of obvious risk in the setting of severe coronary artery disease and multiple strokes in the past along with a SMA stent. He takes atorvastatin so will continue that. Patient was DNR during his admission. Time Spent with Patient Time attestation: Total time spent providing and/or coordinating discharge services: Exam Const: General: cooperative and no acute distress Resp: Effort & Inspection: normal respiratory effort Auscultation: clear to auscultation bilaterally Cardio: Rate: regular rate Rhythm: regular rhythm Heart sounds: S1 normal heart sound present and S2 normal heart sound present GI: GI Palp: No abdominal tenderness Auscultation: normal bowel sounds DS: Data Data Completed and Pending Labs on day of discharge: Labs from last 24 hours 06/20/23 06/20/23 06/19/23 05:23 00:20 16:58 WBC 4.2 L RBC 2.86 L Hgb 8.9 L 8.4 L Hct 27.8 L 24.9 L MCV 97.2 MCH 31.1 MCHC 32.0 RDW 13.8 Plt Count 200 MPV 8.6 Sodium 136 L Potassium 3.3 L Chloride 110 H Carbon Dioxide 21 L Anion Gap 5 BUN 10 Creatinine 0.60 L Estim Creat Clear Calc 77 Estimated GFR > 60 Glucose 82 POC Capillary Glucose 88 Calcium 8.6 06/19/23 14:30 WBC 4.8 RBC 2.99 L Hgb 9.5 L Hct 29.1 L MCV 97.3 MCH 31.8 MCHC 32.6 RDW 14.1 Plt Count 199 MPV 8.9 Sodium 135 L Potassium 3.8 Chloride 110 H Carbon Dioxide 20 L Anion Gap 5 BUN 14 D Creatinine 0.70 Estim Creat Clear Calc 67 Estimated GFR > 60 Glucose 111 H POC Capillary Glucose Calcium 8.7 Preliminary micro results at discharge 06/16/23 20:15 Blood Culture - Preliminary Blood Clostridium perfringens 06/16/23 20:12 Blood Culture - Preliminary Blood
[2023-06-20] MEDS: POTASSIUM CHLORIDE 20 MEQ PACKET (FOR LIQUID) PO (14:54)
== END 2023-06-20 15:45 | disposition home health service (06) | DRG 378 ==
LOC: ANHED 22:43 → ANHIMU 23:25 → ANH3MED 06-19 08:26 → ANHIMU 06-23 11:14
PROVIDERS: Emergency Medicine; Internal Medicine Gastroenterology; Admitting Provider Internal Medicine; Emergency Provider Emergency Medicine; PCP Family Medicine; Visit Provider General Practice
PROC: 0DJ08ZZ Inspection of Upper Intestinal Tract, Via Natural or Artificial Opening Endoscopic (ICD-10-PCS; CPT 43235; principal; 2023-06-17 13:30)
DX: K26.0 Acute duodenal ulcer with hemorrhage (principal); D62 Acute posthemorrhagic anemia; S36.430A Laceration of duodenum, initial encounter; I42.8 Other cardiomyopathies; I25.10 Atherosclerotic heart disease of native coronary artery without angina pectoris; I67.2 Cerebral atherosclerosis; I10 Essential (primary) hypertension; E78.5 Hyperlipidemia, unspecified; E11.22 Type 2 diabetes mellitus with diabetic chronic kidney disease; K57.30 Diverticulosis of large intestine without perforation or abscess without bleeding; K21.9 Gastro-esophageal reflux disease without esophagitis; F41.1 Generalized anxiety disorder; G40.909 Epilepsy, unspecified, not intractable, without status epilepticus; H40.9 Unspecified glaucoma; X58.XXXA Exposure to other specified factors, initial encounter; Z20.822 Contact with and (suspected) exposure to COVID-19; Z96.653 Presence of artificial knee joint, bilateral; Z86.73 Personal history of transient ischemic attack (TIA), and cerebral infarction without residual deficits; Z95.5 Presence of coronary angioplasty implant and graft; Z95.820 Peripheral vascular angioplasty status with implants and grafts; Z87.891 Personal history of nicotine dependence
CPT/HCPCS: 36415; 36430; 70450; 71045; 74177; 80048; 80053; 81001; 82948; 83605; 83735; 83880; 84100; 84484; 85014; 85018; 85025; 85027; 86850; 86900; 86901; 86923; 87040; 87077; 87185; 87637; 93005; 96361; 96374; 97110; 97116; 97161; 97166; 97530; 99285; A9270; C9113; J0171; J1953; J2371; J2704; J7030; J7050; J7120; P9016; Q9967

== ENCOUNTER 2024-02-22 10:03 | Observation (INO) | payer MEDICARE, SELFPAY ==
[2024-02-22] VITALS (62 sets, daily range): BP systolic 126–167; BP diastolic 67–113; PULSE 77–100; RESP 13–33; TEMP 36.4; O2SAT 97–100
--- NOTE | ~2024-02-22 | XR_ITS ---
XR chest 1V portable DATE: 02/22/2024 10:32 INDICATION: Transient alteration of awareness TECHNIQUE: Portable AP chest on at 1031 hours COMPARISON: 06/16/2023 portable AP chest at 1933 hours FINDINGS: Heart size appears within normal limits. There is aortic calcification and mild tortuosity. Coronary artery calcification is noted. No hilar enlargement. Some widening of the superior mediasti num is likely due to tortuous great vessels. There is no significant tracheal deviation. No pulmonary infiltrate or consolidation, pleural effusion or pulmonary vascular congestion or pneumo thorax is detected. Diffuse osteopenia. There is degenerative spurring of the thoracic spine. IMPRESSION: No active cardiopulmonary disease Aortic and coronary atherosclerosis Reviewed, dictated and finalized at location A. FUNNEL COATER
--- NOTE | ~2024-02-22 | MR_ITS ---
EXAMINATION: MR brain/brain stem wo/w con DATE: 02/23/2024 11:40 INDICATION: Ataxia. TECHNIQUE: Magnetic resonance imaging (MRI) of the brain and brainstem was performed without and with 16 mL MultiHance intravenous contrast. COMPARISON: Brain MRI 05/31/2023, head CT 02/22/2024 FINDINGS: There is an old infarct in the right parietal lobe. There are old infarcts in the bilateral cerebellum and bilateral occipital lobes. There is an old infarct in right frontal lobe. There are s cattered areas of nonspecific increased T2-weighted signal intensity in the cerebral white matter and rach, which is within normal limits for the patient's age. There is no acute intracranial hemorrhage , acute infarction, or abnormal intracranial mass lesion. There is ex vacuo dilatation of right later al ventricle. There are likely changes of right ocular lens replacement surgery. There is mild mucosa l thickening in the paranasal sinuses. There is a trace left mastoid effusion. IMPRESSION: 1. 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 Reviewed, dictated and finalized at location A. H OR BROOM CUTTER IMPRESSION: 1. 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
--- NOTE | ~2024-02-22 | CT_ITS ---
EXAMINATION: CT brain wo con DATE: 02/22/2024 10:37 INDICATION: Fall. Syncope. TECHNIQUE: Computed tomography (CT) of the head was performed without intravenous contrast. The mA wa s adjusted according to patient size. Iterative reconstruction technique was employed. Exam dose: 60 5.33 mGy-cm total exam DLP. COMPARISON: 06/16/2023 CT brain FINDINGS: Prominent bilateral vertebral artery calcifications. Bilateral chronic cerebellar hemispher ic infarcts. There is central and cortical cerebral and cerebellar volume loss. Old infarct over the right posterior parietal lobe. Old infarct posterior left occipital region, smal ler focal old right occipital infarct Prominent bilateral carotid siphon internal carotid artery calc ifications. There is nonspecific diminished attenuation of the cerebral white matter, likely due to c hronic small vessel ischemic changes. No subdural or epidural hematoma. The mastoid air cells and included paranasal sinuses are normally developed and aerated. No fracture or bone destruction or drainable. 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 Reviewed, dictated and finalized at location A. 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
--- NOTE | 2024-02-22 10:06 | ECG_ITS ---
Test Date: 2024-02-22 10:06:23 Measurements Intervals [place] Rate: 81 P: -48 TN: 183 QRS: -70 QRSD: 132 T: 36 QT: 374 QTc: 436 Interpretive Statements SINUS RHYTHM RIGHT BUNDLE BRANCH BLOCK [120+ ms QRS DURATION, UPRIGHT V1, 40+ ms S IN I/aVL/V4/V5/V6] LEFT ANTERIOR FASCICULAR BLOCK [QRS AXIS <= -45, QR IN I, RS IN II] No previous ECG available for comparison Electronically Signed On 02-25-2024 16:43:56 [employer] by Toyin Antunez M.D.
[2024-02-22 10:26] LABS: Basophils Absolute Auto 0.1 K/mm3 (0.0-0.1); Eosinophils Absolute Auto 0.1 K/mm3 (0-0.3); Eosinophils Percent Auto 2.3 % (0-4.4); Hematocrit 39.4 % (42.0-52.0); Hemoglobin 13.5 g/dL (14.0-18.0); Immature Granulocyte Absolute 0.07 K/mm3 (0.00-0.031); Immature Granulocyte Percent A 1.2 % (0-0.5); Lymphocytes Percent Auto 11.7 % (18.3-44.2); Mean Corpuscular HGB Conc 34.3 g/dl (32-36); Mean Corpuscular Hemoglobin 32.9 pg (26-34); Mean Corpuscular Volume 96.1 fl (80-100); Mean Platelet Volume 8.5 fl (7.4-10.4); Monocytes Absolute Auto 0.7 K/mm3 (0.1-0.6); Monocytes Percent Auto 11.9 % (2.6-8.5); Neutrophils Absolute Auto 4.3 K/mm3 (1.3-6.7); Neutrophils Percent Auto 71.9 % (45.5-73.1); Platelet Count Result 190 k/mm3 (150-375); Red Cell Distribution Width 12.5 % (11.5-14.5)
--- NOTE | 2024-02-22 10:28 | ED_ITS ---
HPI - Syncope General Chief Complaint: Syncope Stated Complaint: syncope, intermittent chest pain Time Seen by Provider: 02/22/24 10:08 History of Present Illness HPI narrative: 83-year-old male with complex past medical history including coronary artery disease with multiple stents, hypertension, diabetes, multiple strokes in the past with no appreciable residual deficits. Patient is not any kind of anticoagulation medications. Today he had a syncopal event while he was on the restroom toilet. Patient states that he was getting dressed and got off the toilet and felt profoundly weak, dizzy and fell to the ground and did strike his head. Patient thinks he did lose consciousness. He was not able to get off the ground secondary to profound weakness and he had some assistance but when his family members were able to get up he was able stand on his own feet and ambulate to the vehicle for transport. Patient very poor historian at baseline, states he has been having intermittent chest pain describes ?spells? where he gets dizzy and weak and seems to describe these occurring with changes in position. His previous primary care provider notes also seem to corroborate similar story of poor historian with vague complaints of chest pain and spells that he has difficulty elaborating on. Patient has family at bedside but also not able to provide any meaningful detail. Patient states he has not had any new or changed medications, denies any active chest pain shortness a breath presently. No headache or vision changes abdominal pain or back pain. He states he presently feels okay but wants to find out what happened. Related Data Home Medications ?Medication ?Instructions ?Recorded ?Confirmed ?Last Taken ?Type ascorbic acid (vitamin C) 500 mg 500 mg PO DAILY 06/29/21 01/06/24 05/30/23 History tablet vit C 250 mg-vit E 90 mg-zinc 40 1 tablet PO BID 06/29/21 01/06/24 05/30/23 History mg-copper 1 dq-vsgbdg-sbaeso capsule (PreserVision AREDS-2) vitamin B complex (B 1 tablet PO DAILY 06/29/21 01/06/24 05/30/23 History Complex-Vitamin B12 tablet) acetaminophen 500 mg capsule 500 mg PO BID 04/16/22 01/06/24 05/30/23 History cholecalciferol (vitamin D3) 125 50 mcg PO DAILY 04/16/22 01/06/24 05/30/23 History mcg (5,000 unit) capsule coenzyme Q10 100 mg capsule 200 mg PO DAILY 04/16/22 01/06/24 05/30/23 History omega 4-bpp-quw-fish oil 1,200 mg 1 cap PO DAILY 04/16/22 01/06/24 05/30/23 History (144 mg-216 mg) capsule (Fish Oil) tikfqjymzfip-luozmsmc-pjnygj tablet 1 tablet PO DAILY 02/05/23 01/06/24 05/30/23 History amiodarone 200 mg tablet 200 mg PO DAILY 01/06/24 01/06/24 Unknown History Allergies Allergy/AdvReac Type Severity Reaction Status Date / Time No Known Allergies Allergy Verified 01/06/24 14:05 Review of Systems 2 Review of Systems: As reviewed above in HPI [facility] Past Medical History Medical History History of GI diverticular bleed April 2023 Chronic vascular disorders of intestine Essential (primary) hypertension Type 2 diabetes mellitus with other diabetic kidney complication Cerebral atherosclerosis Epilepsy, unspecified, not intractable, without status epilepticus Generalized anxiety disorder Atherosclerotic heart disease of [place] coronary artery with unspecified angina pectoris Ischemic cardiomyopathy 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 He had 3 children with his 1st and 2 children with his 2nd as far as he knows all of his children are healthy. 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 He reports that he smoked cigarettes for about 5-10 years when he was quite young. He used to occasionally smoke a cigar but has not done so in about 35 years. He denies any significant alcohol use. He ambulates with a walker. He no longer drives. Code status: DNR/DNI (patient states that he and his have advanced directives in place and that they would not want heroic measures) Smoking packs per day: 1.5 Smoking cigarettes per day: 30.0 Years smoked: 10 Smoking pack-years: 15.00 Smoking status: Former smoker Tobacco type: cigars and smokeless tobacco Smokeless tobacco user: chewing tobacco Second hand tobacco smoke exposure: Yes Additional smoking assessment comments: Quit chewing tobacco in 2022 Alcohol intake: former Substance use: never Substance use type: does not use Do You Feel Safe in your Home?: Yes Lack of Transportation: YES Lack of Food: Never True Current Housing: I Have Housing Concerned About Future Housing: No Difficulty Paying Gas/Electric Bills: No Difficulty Paying for Meds: No Currently Unemployed: No Education: Decline to Answer Difficulty w/ Childcare or Family Care: No Living arrangements: with family Occupation/Education: retired Gender identity (if verbalized by the patient): Male Spiritual care concerns: No Exam 2 Narrative: GENERAL: Chronically ill-appearing, not in any acute distress, thin and frail appearing, disheveled HEAD: [Normocephalic, atraumatic.] EYES: [PERRLA and EOMI.] ENT: Nares clear, no rhinorrhea or epistaxis. Mucous membranes moist. NECK: Supple. CHEST: [Clear to auscultation. No respiratory distress.] HEART: [Regular rate and rhythm]. No murmur heard. [Normal peripheral pulses.] ABDOMEN: [Soft, nondistended], [nontender], [No rigidity or guarding] EXTREMITIES: Normal range of motion. [No edema.] SKIN: Thin and frail skin with various bruising to the bilateral upper extremities and skin tears, no active bleeding NEURO: [No focal deficits]. Alert and oriented [x3.] Full strength and sensation throughout both arms and legs, no ataxia. Some slowness to respond to commands but follows commands without trouble PSYCH: [Normal mood and affect.] Course Vital Signs Vital signs: Vital Signs Temperature 36.4 C 02/22/24 10:01 Pulse Rate 84 02/22/24 10:01 Respiratory Rate 16 02/22/24 10:01 Blood Pressure 154/83 H 02/22/24 10:01 Pulse Oximetry 100 02/22/24 10:01 Oxygen Delivery Room Air 02/22/24 10:01 Temperature 36.4 C 02/22/24 10:01 Pulse Rate 93 02/22/24 10:41 Respiratory Rate 16 02/22/24 10:01 Blood Pressure 151/81 H 02/22/24 10:41 Pulse Oximetry 100 02/22/24 10:01 Oxygen Delivery Room Air 02/22/24 10:01 MDM - Syncope MDM Narrative Medical decision making narrative: 83-year-old male with complex past medical history including coronary disease with multiple stents, hypertension, diabetes, multiple strokes. Presents today with a complaints including a syncopal event while getting up from the restroom complicated by a fall with head trauma and intermittent chest pains. Patient has a very poor historian at baseline and difficult to elucidate the exact details of the events today. He states he has not had any chest pain shortness a breath presently and denies any headache or vision changes. He has a nonfocal neurological assessment with full strength and sensation throughout both arms and legs, alert oriented answers questions. He is acting appropriately. Vital signs are reassuring aside from some mild hypertension, no tachycardia, fever, hypoxia or tachypnea is noted. He has clear breath sounds without any signs of ectopy or arrhythmia on his EKG or monitor. Given his age and risk factors considerations for cardiac syncopal event versus orthostatic event versus dehydration versus intracranial pathology such as a bleed or trauma from the fall. Low suspicion stroke or TIA given his NIH stroke scale 0. Low suspicion pulmonary embolism given his low Wells criteria. Cardiac workup was ordered including serial troponins, EKG, chest x-ray. CT of the head was obtained as well as a chest x-ray, electrolyte panel, CBC. He was given a fluid bolus for hydration. Workup reveals no leukocytosis, hemoglobin 13.5 which is better than his previous anemic levels. No thrombocytosis or thrombocytopenia. Chemistry panel shows largely unremarkable electrolytes, normal renal function panel, normal hepatic function panel, normal glucose and negative troponin x1. I reviewed patient's chest x-ray and does not appear to have any cardiomegaly, no pneumonia or pneumothorax. Radiology confirms and also states that there is atherosclerosis which patient has a history of. Head CT was reviewed and has old cerebellar infarcts, old posterior occipital infarcts and old parietal infarcts. No acute intracranial findings with any interval change from prior. Patient is high risk factors and etiology behind his syncope is still unclear. He will be admitted to the hospital for an observation admission for further evaluation treatment. Family was comfortable this plan I discussed with them plan of care going forward as well as contacting the hospitalist Dr. Olson. We went over patient's care, clinical exam and laboratory studies and imaging findings. Plan of care will be to admit him to a telemetry monitored bed for observation. Differential Diagnosis Differential diagnosis: Likely syncope due to orthostatic hypotension, vasovagal syncope, subarachnoid hemorrhage, dehydration and other Medical Records Attestation: I reviewed the patient's medical records. Lab Data Attestation: I reviewed the patient's lab results. 02/22/24 10:20 02/22/24 10:20 Labs: Lab Results 02/22/24 02/22/24 Range/Units 10:20 10:21 WBC 6.0 (4.5-10.0) K/mm3 RBC 4.10 L (4.6-6.20) M/mm3 Hgb 13.5 L D (14.0-18.0) g/dL Hct 39.4 L (42.0-52.0) % MCV 96.1 (80-100) fl MCH 32.9 (26-34) pg MCHC 34.3 (32-36) g/dl RDW 12.5 (11.5-14.5) % Plt Count 190 (150-375) k/mm3 MPV 8.5 (7.4-10.4) fl Immature Gran % (Auto) 1.2 H (0-0.5) % Neut % (Auto) 71.9 (45.5-73.1) % Lymph % (Auto) 11.7 L (18.3-44.2) % [place] % (Auto) 11.9 H (2.6-8.5) % Eos % (Auto) 2.3 (0-4.4) % Baso % (Auto) 1.0 (0.2-1.2) % Lymph # (Auto) 0.70 L (0.9-3.2) K/mm3 [place] # (Auto) 0.7 H (0.1-0.6) K/mm3 Eos # (Auto) 0.1 (0-0.3) K/mm3 Baso # (Auto) 0.1 (0.0-0.1) K/mm3 Abs Immat Gran (auto) 0.07 H (0.00-0.031) K/mm3 Absolute Neuts (auto) 4.3 (1.3-6.7) K/mm3 Absolute Nucleated RBC 0.000 (0.0-0.012) K/mm3 Nucleated RBC % 0.0 (0.0-0.2) % Sodium 132 L (137-145) mmol/L Potassium 4.1 (3.4-5.0) mmol/L Chloride 101 (98-107) mmol/L Carbon Dioxide 27 (22-30) mmol/L Anion Gap 4 (4-12) mmol/L BUN 13 (9-20) mg/dL Creatinine 0.90 (0.7-1.3) mg/dL Estim Creat Clear Calc 55 ml/min Estimated GFR > 60 (59 - ) Glucose 85 (65-110) mg/dL Calcium 9.3 (8.4-10.2) mg/dL Total Bilirubin 0.8 (0.2-1.3) mg/dL AST 31 (17-59) U/L ALT 25 (6-50) U/L Alkaline Phosphatase 66 (38-126) U/L Troponin I < 0.012 (0.000-0.034) ng/mL Total Protein 7.0 (6.3-8.2) g/dL Albumin 4.1 (3.5-5.1) g/dL Imaging Data Attestation: I personally reviewed and interpreted this imaging study as follows: My impression: I did not see any kind of pneumonia, pneumothorax or consolidations or evidence of cardiomegaly on his chest x-ray. Impressions Chest X-Ray 02/22/24 10:32 IMPRESSION: No active cardiopulmonary disease Aortic and coronary atherosclerosis Head CT 02/22/24 10:41 IMPRESSION: Old cerebellar hemispheric infarcts and old posterior upper right parietal lobe and small left and smaller right occipital infarcts Cerebral atherosclerosis and proximal vessel ischemic changes in cerebral white matter No acute intracranial finding significant change since 06/16/2023 ECG Data EKG #1: Attestation: I personally reviewed and interpreted this ECG as follows: ECG completion date: 02/22/24 ECG completion time: 10:06 Prior ECG tracings: available for review Interpretation: Sinus rhythm with a right bundle-branch block, no ST segment elevations, depressions or inversions, no ectopy, QRS of 132, QTC 412, SC interval 183. Within normal limits. No interval change compared to previous EKG. No signs of acute ischemic changes. EKG Interpretation: normal rate, sinus rhythm, no ectopy, no ST changes, normal QRS, RBBB, normal QT and no acute changes Discharge Plan Discharge Clinical Impression: Syncope and collapse, Closed head injury, Intermittent chest pain, History of multiple cerebrovascular accidents (CVAs) Patient Disposition: Still a Patient Condition: Stable Patient Language: Lithuanian Prescriptions: No Action amiodarone 200 mg tablet 200 mg PO DAILY clopidogrel 75 mg tablet 75 mg PO DAILY Qty: 90 1RF levetiracetam 1,000 mg tablet 1,000 mg PO BID Qty: 180 1RF metoprolol succinate 50 mg tablet extended release 24 hr 50 mg PO DAILY Qty: 100 1RF pantoprazole [Protonix] 40 mg tablet,delayed release (DR/EC) 40 mg PO BID 28 Days Qty: 56 0RF rosuvastatin 40 mg tablet 40 mg PO DAILY Qty: 90 1RF coenzyme Q10 100 mg capsule 200 mg PO DAILY cholecalciferol (vitamin D3) 125 mcg (5,000 unit) capsule 50 mcg PO DAILY acetaminophen 500 mg capsule 500 mg PO BID omega 6-etw-yze-fish oil [Fish Oil] 1,200 (144-216) mg capsule 1 cap PO DAILY ferrous sulfate 325 mg (65 mg iron) tablet 325 mg PO DAILY Qty: 90 0RF ascorbic acid (vitamin C) 500 mg Tablet 500 mg PO DAILY vitamin B complex [B Complex-Vitamin B12] Tablet 1 tablet PO DAILY PreserVision AREDS-2 250-90-40-1 mg Capsule 1 tablet PO BID omuolaqesbef-gshatpnn-qugcmj Tablet 1 tablet PO DAILY Follow-up/Referrals: David Ramon MD [Primary Care Provider] - Time of Disposition: 11:52 Quality HEART score for chest pain patients History: slightly suspicious ECG: non specific repolarization disturbance/LBTB/PM Age: > or = to 65 years Risk factors: > or = to 3 risk factors of atherosclerotic disease Troponin: < or = to 1x normal limit Heart score: 5
[2024-02-22 10:41] LABS: Alanine Aminotransferase 25 U/L (6-50); Albumin Level 4.1 g/dL (3.5-5.1); Alkaline Phosphatase 66 U/L (38-126); Anion Gap 4 mmol/L (4-12); Aspartate Amino Transferase 31 U/L (17-59); Bilirubin,Total 0.8 mg/dL (0.2-1.3); Blood Urea Nitrogen 13 mg/dL (9-20); Calcium 9.3 mg/dL (8.4-10.2); Carbon Dioxide 27 mmol/L (22-30); Chloride 101 mmol/L (98-107); Estimated CRCL calculation 55 ml/min; Estimated Glomerular Filt Rate > 60; Glucose 85 mg/dL (65-110); Potassium 4.1 mmol/L (3.4-5.0); Sodium 132 mmol/L (137-145)
[2024-02-22] MEDS: LACTATED RINGERS 1,000 ML 999 ML IV CONT (10:44)
[2024-02-22 10:58] LABS: Troponin I < 0.012 ng/mL (0.000-0.034)
[2024-02-22 13:57] LABS: Troponin I < 0.012 ng/mL (0.000-0.034)
--- NOTE | 2024-02-22 15:05 | P.HP_ITS ---
H&P: HPI History of Present Illness Date/Time: 02/22/24 15:05 Chief Complaint: Fall Narrative: 83-year-old male with complex past medical history including coronary artery disease with multiple stents, hypertension, diabetes, multiple strokes in the past, admitted after a fall. He reports feeling more unsteady intermittently all week. Discussed with his and she says at baseline he has some confusion and poor vision with abnormal eye movements. She helps him walk with his walker to the bathroom during the day, makes him food, helps him get dressed. Otherwise, they spend most of the day sitting in their recliners. Today he didn't take his walker into the bathroom with him and he was unsteady and fell, though he also reports feeling lightheaded and possible vertigo. He reported that the room moves sometimes, but during the fall it went black but she was in the room with him and it didn't seem like he lost consciousness to her. His found his pill bottles and read them to me over the phone. He is only taking 3: Home meds: Metoprolol 50mg daily, Clopidogrel 75mg, Rosuvastatin 40mg daily. He chose to stop taking iron pills a month ago because his stools were black. He was previously on keppra but stopped it at some point, she's not sure who told him to stop it if anyone. His has not noticed episodes of shaking. He does have episodes sometimes when he has a deep stare and won't respond to her for a couple of minutes. She was unable to get him up off the floor so she called her son to help and called EMS. In the ER, VSS: afebrile, HR 93, RR 17-20, BP 150/86. Labs: Na 132, normal creatinine, troponins negative x2, CBC, normal. EKG NSR with a right bundle branch block. A Head CT showed no acute findings. He reported a headache, which he has intermittently and noted that he missed his morning coffee. Otherwise no new symptoms this week per discussion from his , says he is eating and drinking well. He also denied nausea, or other new complaints except feeling more unsteady. He was A&Ox3 and exam was nonfocal with the exception of nystagmus and ataxia, especially noticeable with his right arm with a finger to nose test, with a left visual field defect. His would be interested in home health and would consider rehab if recommended. , Jessica Enciso, [facility] Past Medical History Medical History History of GI diverticular bleed April 2023 Chronic vascular disorders of intestine Essential (primary) hypertension Type 2 diabetes mellitus with other diabetic kidney complication Cerebral atherosclerosis Epilepsy, unspecified, not intractable, without status epilepticus Generalized anxiety disorder Atherosclerotic heart disease of [place] coronary artery with unspecified angina pectoris Ischemic cardiomyopathy 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 He had 3 children with his 1st and 2 children with his 2nd as far as he knows all of his children are healthy. 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 He reports that he smoked cigarettes for about 5-10 years when he was quite young. He used to occasionally smoke a cigar but has not done so in about 35 years. He denies any significant alcohol use. He ambulates with a walker. He no longer drives. Code status: DNR/DNI (patient states that he and his have advanced directives in place and that they would not want heroic measures) Smoking packs per day: 1.5 Smoking cigarettes per day: 30.0 Years smoked: 10 Smoking pack-years: 15.00 Smoking status: Former smoker Tobacco type: cigars and smokeless tobacco Smokeless tobacco user: chewing tobacco Second hand tobacco smoke exposure: Yes Additional smoking assessment comments: Quit chewing tobacco in 2022 Alcohol intake: former Substance use: never Substance use type: does not use Do You Feel Safe in your Home?: Yes Lack of Transportation: No Lack of Food: Never True Current Housing: I Have Housing Concerned About Future Housing: No Difficulty Paying Gas/Electric Bills: No Difficulty Paying for Meds: No Currently Unemployed: No Education: Trade/Vocational Certificate Difficulty w/ Childcare or Family Care: No Living arrangements: with family Occupation/Education: retired Gender identity (if verbalized by the patient): Male Spiritual care concerns: No Meds Home Medications and Allergies Home Medications ?Medication ?Instructions ?Recorded ?Confirmed ?Type ascorbic acid (vitamin C) 500 mg 500 mg PO DAILY 06/29/21 02/22/24 History tablet vit C 250 mg-vit E 90 mg-zinc 40 1 tablet PO BID 06/29/21 02/22/24 History mg-copper 1 xz-ipiynf-zrzdqe capsule (PreserVision AREDS-2) vitamin B complex (B 1 tablet PO DAILY 06/29/21 02/22/24 History Complex-Vitamin B12 tablet) acetaminophen 500 mg capsule 500 mg PO BID 04/16/22 02/22/24 History cholecalciferol (vitamin D3) 125 50 mcg PO DAILY 04/16/22 02/22/24 History mcg (5,000 unit) capsule coenzyme Q10 100 mg capsule 200 mg PO DAILY 04/16/22 02/22/24 History omega 7-umg-bjo-fish oil 1,200 mg 1 cap PO DAILY 04/16/22 02/22/24 History (144 mg-216 mg) capsule (Fish Oil) mpwafholvcnv-xhanvfbg-jgtmma tablet 1 tablet PO DAILY 02/05/23 02/22/24 History ferrous sulfate 325 mg (65 mg 325 mg PO DAILY #90 tabs 08/20/23 02/22/24 Rx iron) tablet clopidogrel 75 mg tablet 75 mg PO DAILY #90 tabs 01/07/24 02/22/24 Rx levetiracetam 1,000 mg tablet 1,000 mg PO BID #180 tabs 01/07/24 02/22/24 Rx metoprolol succinate 50 mg 50 mg PO DAILY #100 tabs 01/07/24 02/22/24 Rx tablet,extended release 24 hr pantoprazole 40 mg tablet,delayed 40 mg PO BID 4 weeks #56 tabs 01/07/24 02/22/24 Rx release (Protonix) rosuvastatin 40 mg tablet 40 mg PO DAILY #90 tabs 01/07/24 02/22/24 Rx Allergies Allergy/AdvReac Type Severity Reaction Status Date / Time No Known Allergies Allergy Verified 02/22/24 14:04 Vital Signs Vital Signs - 24 hr 02/22/24 10:01 02/22/24 10:22 02/22/24 10:39 Temperature 97.6 F Pulse Rate 84 82 78 Respiratory Rate 16 Blood Pressure 154/83 H 148/67 H Pulse Oximetry 100 Oxygen Delivery Room Air 02/22/24 10:39 02/22/24 10:41 Temperature Pulse Rate 90 93 Respiratory Rate Blood Pressure 145/84 H 151/81 H Pulse Oximetry Oxygen Delivery Exam Narrative: General - Awake and alert. No acute distress, underweight Eyes - PERRLA, EOM intact ENT - No thrush, No erythema Neck - No noticeable or palpable swelling Lymph Nodes - No lymphadenopathy Cardiovascular - RRR no m/r/g, no JVD Lungs: Clear to auscultation, No wheezing, use of accessory muscles, no crackles or wheezes. Skin - Skin warm and dry, no wounds or rashes Abdomen - Normal bowel sounds, abdomen soft and nontender Extremities - No edema, cyanosis or clubbing Musculoskeletal - 5/5 strength, normal range of motion, no swollen or erythematous joints. Neurological ? Alert and oriented x 3, CN 2-12 grossly intact with the exception of a left sided visual field defect, and ataxia, especially right arm/hand with finger to nose test. Visible nystagmus and impaired vision Psych: Normal mood and affect H&P: Results Labs Labs: Short CBC 02/22/24 Range/Units 10:20 WBC 6.0 (4.5-10.0) K/mm3 Hgb 13.5 L D (14.0-18.0) g/dL Hct 39.4 L (42.0-52.0) % Plt Count 190 (150-375) k/mm3 BMP 02/22/24 10:20 Sodium 132 L Potassium 4.1 Chloride 101 Carbon Dioxide 27 BUN 13 Creatinine 0.90 Glucose 85 Calcium 9.3 Cardiac Enzymes 02/22/24 02/22/24 Range/Units 10:21 13:16 Troponin I < 0.012 < 0.012 (0.000-0.034) ng/mL Liver Function 02/22/24 Range/Units 10:20 Total Bilirubin 0.8 (0.2-1.3) mg/dL AST 31 (17-59) U/L ALT 25 (6-50) U/L Alkaline Phosphatase 66 (38-126) U/L Albumin 4.1 (3.5-5.1) g/dL Assessment and Plan Assessment and plan (1) Fall: Code(s): W19.XXXA - Unspecified fall, initial encounter Status: Acute (2) Lightheaded: Code(s): R42 - Dizziness and giddiness Status: Acute Assessment and Plan: Was orthostatic in the ER, s/p fluids --Follow vitals --I&O --Monitor on tele --EEG as noted --Ataxia unclear chronicity, Check MRI brain --PT/OT (3) Hx of seizure disorder: Code(s): Z86.69 - Personal history of other diseases of the nervous system and sense organs Status: Acute Assessment and Plan: Report of 2 seizures after his first stroke. No tonic clonic seizures per patient's but has staring episodes sometimes. Hasn't been on keppra recently. Not seeing a neurologist. --1000mg IV keppra, then resume PO 1000mg BID, adjust dose per neurology --Neurology consult --EEG (4) Ischemic cardiomyopathy: Code(s): I25.5 - Ischemic cardiomyopathy Status: Chronic Assessment and Plan: Follows with PCP, per notes: cardiac cath in 2021 showed right dominant system with significantly calcified coronary arteries. Previously deployed stent in the LAD with mild loss of lumen, jailing a small to medium-sized 1st diagonal which has an 80% lesion in it.... 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 07/08 TTE left ventricular systolic function is normal, estimated at 50 to 55%. There is mild increased left ventricular wall thickness. The left ventricular diastolic function is grade 1 diastolic dysfunction.... There is moderate aortic valve sclerosis. There is mild mitral valve regurgitation. --Continue Plavix and metoprolol Quality VTE Prophylaxis VTE prophylaxis: pharmacologic ordered Hospitalist MIPS Advance Care Plan I have confirmed that the patient's Advanced Care Plan is present, code status is documented, or surrogate decision maker is listed in patient medical record.: Yes Medication Reconciliation I have utilized all available resources to obtain, update and review the patients current medications (includes all prescriptions, OTC, herbals, cannabis, and nutritional supplements).: Yes
[2024-02-22] MEDS: levETIRAcetam 1000MG/NACL100ML 1,000 MG/100 ML BAG 400 MG IVPB (17:36)
[2024-02-22] MEDS: ACETAMINOPHEN 500 MG TABLET 1000 MG PO (17:36)
[2024-02-22] MEDS: PANTOPRAZOLE 40 MG TABLET PO (22:16)
[2024-02-22] MEDS: levETIRAcetam 500 MG TABLET 1000 MG PO (22:16)
[2024-02-23] VITALS (16 sets, daily range): BP systolic 99–131; BP diastolic 52–65; PULSE 60–83; RESP 12–21; TEMP 36.5–36.9; O2SAT 61–100; BMI 24.3
--- NOTE | 2024-02-23 08:15 | PC.NURSE ---
Patient's daughter in law called into the ER and reported that the family would like to have care coordination consult on patient due to their concerns regarding his home care. They do not feel it is safe for him to go home with his . They requested that social service be in contact with their son Giuliano at [phone].
[2024-02-23 08:32] LABS: Basophils Absolute Auto 0.1 K/mm3 (0.0-0.1); Basophils Percent Auto 0.7 % (0.2-1.2); Eosinophils Absolute Auto 0.2 K/mm3 (0-0.3); Eosinophils Percent Auto 2.7 % (0-4.4); Hematocrit 37.2 % (42.0-52.0); Hemoglobin 12.7 g/dL (14.0-18.0); Immature Granulocyte Absolute 0.03 K/mm3 (0.00-0.031); Immature Granulocyte Percent A 0.4 % (0-0.5); Lymphocytes Absolute Auto 0.69 K/mm3 (0.9-3.2); Lymphocytes Percent Auto 9.7 % (18.3-44.2); Mean Corpuscular HGB Conc 34.1 g/dl (32-36); Mean Corpuscular Hemoglobin 33.1 pg (26-34); Mean Corpuscular Volume 96.9 fl (80-100); Mean Platelet Volume 8.5 fl (7.4-10.4); Monocytes Absolute Auto 0.8 K/mm3 (0.1-0.6); Monocytes Percent Auto 11.2 % (2.6-8.5); Neutrophils Absolute Auto 5.4 K/mm3 (1.3-6.7); Neutrophils Percent Auto 75.3 % (45.5-73.1); Platelet Count Result 180 k/mm3 (150-375); Red Blood Count 3.84 M/mm3 (4.6-6.20); Red Cell Distribution Width 12.5 % (11.5-14.5); White Blood Count 7.2 K/mm3 (4.5-10.0)
[2024-02-23 08:52] LABS: Alanine Aminotransferase 22 U/L (6-50); Albumin Level 3.7 g/dL (3.5-5.1); Alkaline Phosphatase 55 U/L (38-126); Anion Gap 1 mmol/L (4-12); Aspartate Amino Transferase 26 U/L (17-59); Bilirubin,Total 0.7 mg/dL (0.2-1.3); Blood Urea Nitrogen 13 mg/dL (9-20); Carbon Dioxide 27 mmol/L (22-30); Chloride 104 mmol/L (98-107); Estimated CRCL calculation 62 ml/min; Estimated Glomerular Filt Rate > 60; Glucose 72 mg/dL (65-110); Magnesium 1.8 mg/dL (1.6-2.3); Potassium 4.2 mmol/L (3.4-5.0); Sodium 132 mmol/L (137-145)
[2024-02-23] MEDS: CLOPIDOGREL BISULFATE 75 MG TABLET PO (09:26)
[2024-02-23] MEDS: VITAMIN B COMPLEX CAPSULE 1 CAP PO (09:27)
[2024-02-23] MEDS: OPTI-GEN TAB 1 TABLET PO (09:28)
[2024-02-23] MEDS: METOPROLOL SUCCINATE EXT REL 50 MG TABCR PO (09:28)
[2024-02-23] MEDS: levETIRAcetam 500 MG TABLET 1000 MG PO ×2 (09:29→20:32)
[2024-02-23] MEDS: ROSUVASTATIN 20 MG TABLET 40 MG PO (09:29)
[2024-02-23] MEDS: PANTOPRAZOLE 40 MG TABLET PO ×2 (09:30→20:32)
--- NOTE | 2024-02-23 11:01 | ECG_ITS ---
Test Date: 2024-02-23 11:07:58 Measurements Intervals [place] Rate: P: 0 [place]: 0 QRS: 0 QRSD: 0 T: 0 QT: 0 QTc: 0 Interpretive Statements SINUS RHYTHM RIGHT BUNDLE BRANCH BLOCK Compared to ECG 02/22/2024 10:06:23 NO SIGNIFICANT CHANGES Electronically Signed On 02-25-2024 17:00:18 SKID MAN by Toyin Antunez M.D.
--- NOTE | 2024-02-23 14:08 | PC.NURSE ---
Pt Yamile updated on pt admission
--- NOTE | 2024-02-23 14:21 | ADMGEN ---
This patient, Ramiro Enciso, was admitted to Medical Room 259-. Patient/family oriented to hospital policies and general routines including ID bracelet, bed and alarms, visiting hours, pain management, procedures, bathroom and other care routines, personal items, smoking policy, room service/diet, and visiting hours. Information on how to activate the Rapid Response Team has been discussed. Patient/Family are encouraged to report perceived risks to care and to ask questions if they do not understand what they are told or what they should do.
--- NOTE | 2024-02-23 14:33 | P.PNIM_ITS ---
Progress Note: A&P Assessment and Plan (1) Fall: Code(s): W19.XXXA - Unspecified fall, initial encounter Status: Acute Assessment and Plan: * Fall precautions for safety. (2) Lightheaded: Code(s): R42 - Dizziness and giddiness Status: Acute Assessment and Plan: Was orthostatic in the ER, s/p fluids --Follow vitals --I&O --Monitor on tele --EEG as noted --Ataxia unclear chronicity, Check MRI brain --PT/OT 02/23/24: * Awaiting results of EEG and MRI. * Continue PT and OT consult * Continue telemetry * Awaiting Neuro consult. 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 No tonic clonic seizures per patient's but has staring episodes sometimes. Hasn't been on keppra recently. Not seeing a neurologist. --1000mg IV keppra, then resume PO 1000mg BID, adjust dose per neurology --Neurology consult --EEG 02/23/24: * No acute s/s of seizures. * Continue keppra * Awaiting Neuro evaluation for further management. (4) Ischemic cardiomyopathy: Code(s): I25.5 - Ischemic cardiomyopathy Status: Chronic Assessment and Plan: Follows with PCP, per notes: cardiac cath in 2021 showed right dominant system with significantly calcified coronary arteries. Previously deployed stent in the LAD with mild loss of lumen, jailing a small to medium-sized 1st diagonal which has an 80% lesion in it.... 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 07/08 TTE left ventricular systolic function is normal, estimated at 50 to 55%. There is mild increased left ventricular wall thickness. The left ventricular diastolic function is grade 1 diastolic dysfunction.... There is moderate aortic valve sclerosis. There is mild mitral valve regurgitation. --Continue Plavix and metoprolol Time Spent With Patient Time with patient: 25 - 35 minutes Subjective Date/time seen: 02/23/24 14:33 Interval history: This pt was examined on ER stretcher awaiting bed on the inpatient floor. He is pleasant to speak with and reports he feels generally weak all over and sore from his fall including headache. He denies any other acute complaints and is currently receiving IVF for being orthostatic. We are awaiting EEG and MRI as well as Neurology consult. Review of Systems Review of Systems: All systems reviewed & are unremarkable except as noted in HPI and below Exam Const: General: comfortable and no acute distress Other: Elderly male pt lying supine on stretcher at this time in no acute distress. HENMT: Face/Nose/Sinus: Normal nares present Mouth: Yes moist mucous membranes Eyes: General: appearance normal, both eyes and all related structures Pupils: Equal, round and reactive pupils present EOM: EOMs intact bilaterally Other: tracks appropriately without any nystagmus. Neck: Neck: supple and no JVD Resp: Effort & Inspection: normal respiratory effort Auscultation: clear to auscultation bilaterally Cardio: Rate: regular rate Rhythm: regular rhythm Heart sounds: Murmur heart sound present systolic holo and II/ Skin: General skin exam: normal color and no erythema Lesions: lesion noted (scattered bruising on BUE.) Neuro: Speech: normal speech Motor exam (neuro): 5/5 motor strength present throughout and Normal motor muscle tone present throughout Sensory Exam: normal sensation Extrem: General: normal to inspection and no edema Psych: Mental Status: mental status grossly normal Objective Data Vital Signs Vital Signs: Vital Signs - 24 hr 02/22/24 14:45 02/22/24 14:46 02/22/24 15:00 Temperature Pulse Rate 86 96 92 Respiratory Rate 21 H 30 H 19 Blood Pressure 140/85 Pulse Oximetry 98 98 98 02/22/24 15:01 02/22/24 15:15 02/22/24 15:16 Temperature Pulse Rate 87 87 89 Respiratory Rate 20 21 H 19 Blood Pressure 150/74 H 141/74 H Pulse Oximetry 98 99 98 02/22/24 15:17 02/22/24 15:30 02/22/24 15:31 Temperature Pulse Rate 86 90 95 Respiratory Rate 17 21 H 19 Blood Pressure 160/79 H Pulse Oximetry 100 99 100 02/22/24 15:45 02/22/24 15:46 02/22/24 16:00 Temperature Pulse Rate 88 87 88 Respiratory Rate 14 15 17 Blood Pressure 143/68 H Pulse Oximetry 98 98 98 02/22/24 16:01 02/22/24 16:19 02/22/24 16:34 Temperature Pulse Rate 87 90 90 Respiratory Rate 17 15 20 Blood Pressure 137/75 Pulse Oximetry 98 98 100 02/22/24 17:15 02/22/24 17:16 02/22/24 17:41 Temperature Pulse Rate 87 90 91 Respiratory Rate 15 17 30 H Blood Pressure 152/79 H Pulse Oximetry 99 99 02/22/24 17:45 02/22/24 17:46 02/22/24 18:00 Temperature Pulse Rate 95 94 100 Respiratory Rate 23 H 29 H 19 Blood Pressure 147/113 H Pulse Oximetry 02/22/24 18:01 02/22/24 18:15 02/22/24 18:16 Temperature Pulse Rate 98 92 92 Respiratory Rate 14 20 17 Blood Pressure 167/94 H 150/86 H Pulse Oximetry 100 97 02/22/24 18:31 02/22/24 18:37 02/22/24 18:47 Temperature Pulse Rate 97 94 90 Respiratory Rate 26 H 18 20 Blood Pressure 161/84 H Pulse Oximetry 02/22/24 19:00 02/22/24 21:31 02/23/24 00:01 Temperature Pulse Rate 88 77 72 Respiratory Rate 18 18 18 Blood Pressure 126/75 101/65 Pulse Oximetry 98 97 02/23/24 02:26 02/23/24 04:01 02/23/24 06:00 Temperature Pulse Rate 68 67 63 Respiratory Rate 12 21 H 17 Blood Pressure 99/57 L 110/61 128/65 Pulse Oximetry 98 99 98 02/23/24 07:15 02/23/24 07:40 02/23/24 09:24 Temperature 98.2 F Pulse Rate 67 83 Respiratory Rate 18 20 Blood Pressure 128/65 116/64 Pulse Oximetry 99 99 02/23/24 09:28 02/23/24 12:15 02/23/24 13:56 Temperature Pulse Rate 76 71 75 Respiratory Rate 19 20 Blood Pressure 129/59 L 129/59 L Pulse Oximetry 98 98 02/23/24 14:20 Temperature 97.7 F Pulse Rate 68 Respiratory Rate 16 Blood Pressure 131/65 Pulse Oximetry 100 Intake/Output Intake/Output: Intake & Output 02/20/24 02/21/24 02/22/24 02/23/24 23:59 23:59 23:59 23:59 Intake Total 1100 Balance 1100 Meds/Results Medications: Active Medications Generic Name Dose Route Start Last Admin Trade Name Freq PRN Reason Stop Dose Admin Acetaminophen 1,000 mg 02/22/24 17:16 02/22/24 17:36 Acetaminophen 500 Mg Tablet PO 1,000 mg Q6H PRN Administration Mild Pain (1-3) or Fever Clopidogrel Bisulfate 75 mg 02/23/24 09:00 02/23/24 09:26 Clopidogrel Bisulfate 75 Mg Tablet PO 75 mg DAILY EMELINA Administration Levetiracetam 1,000 mg 02/22/24 21:00 02/23/24 09:29 Levetiracetam 500 Mg Tablet PO 1,000 mg Q12HR EMELINA Administration Metoprolol Succinate 50 mg 02/23/24 09:00 02/23/24 09:28 Metoprolol Succinate Ext Rel 50 Mg Tabcr PO 50 mg DAILY EMELINA Administration Multivitamins/Minerals 1 tablet 02/23/24 09:00 02/23/24 09:28 Opti-Gen Tab PO 1 tablet DAILY EMELINA Administration Pantoprazole Sodium 40 mg 02/22/24 21:00 02/23/24 09:30 Pantoprazole 40 Mg Tablet PO 40 mg Q12HR EMELINA Administration Rosuvastatin Calcium 40 mg 02/23/24 09:00 02/23/24 09:29 Rosuvastatin 20 Mg Tablet PO 40 mg DAILY EMELINA Administration Vitamin B Complex 1 cap 02/23/24 09:00 02/23/24 09:27 Vitamin B Complex Capsule PO 1 cap DAILY EMELINA Administration Radiology Results: ITS Impressions Chest X-Ray 02/22/24 10:32 IMPRESSION: No active cardiopulmonary disease Aortic and coronary atherosclerosis Head CT 02/22/24 10:41 IMPRESSION: 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 Labs Labs: Laboratory Results - last 24 hr 02/23/24 08:26 WBC 7.2 RBC 3.84 L Hgb 12.7 L Hct 37.2 L MCV 96.9 MCH 33.1 MCHC 34.1 RDW 12.5 Plt Count 180 MPV 8.5 Immature Gran % (Auto) 0.4 Neut % (Auto) 75.3 H Lymph % (Auto) 9.7 L [place] % (Auto) 11.2 H Eos % (Auto) 2.7 Baso % (Auto) 0.7 Lymph # (Auto) 0.69 L [place] # (Auto) 0.8 H Eos # (Auto) 0.2 Baso # (Auto) 0.1 Abs Immat Gran (auto) 0.03 Absolute Neuts (auto) 5.4 Absolute Nucleated RBC 0.000 Nucleated RBC % 0.0 Sodium 132 L Potassium 4.2 Chloride 104 Carbon Dioxide 27 Anion Gap 1 L BUN 13 Creatinine 0.80 Estim Creat Clear Calc 62 Estimated GFR > 60 Glucose 72 Calcium 9.0 Magnesium 1.8 Total Bilirubin 0.7 AST 26 ALT 22 Alkaline Phosphatase 55 Total Protein 6.0 L Albumin 3.7 Quality VTE Prophylaxis VTE prophylaxis: mechanical ordered
[2024-02-23] MEDS: ACETAMINOPHEN 500 MG TABLET 1000 MG PO (23:20)
[2024-02-24] VITALS (13 sets, daily range): BP systolic 101–132; BP diastolic 50–76; PULSE 60–717; RESP 16–18; TEMP 36.2–37.1; O2SAT 99–100
--- NOTE | 2024-02-24 | ECHO_ITS ---
Patient Info Name: Ramiro Enciso Age: 83 years : 1940 Gender: Male Ht: 70 in Wt: 169 lbs BSA: 1.95 m2 HR: 60 bpm BP: 108 / 50 mmHg Technical Quality: Fair Exam Date: 02/24/2024 9:49 AM Exam Location: Echo Lab Exam Room: [facility] [place] Patient Status: Outpatient Admit Date: 02/22/2024 Staff Ordering Physician: Frankie Weaver MD Blade Changer: Nguyen Key RDCS Attending Provider: Halie Barreto Referring Physician: Meg; Exam Type: CA echo doppler color flow Study Info Complete two-dimensional, color flow and Doppler transthoracic echocardiogram is performed. Summary 1. Technically difficult study with limited views. 2. Left ventricular chamber dimension is normal. 3. Left ventricular systolic function is normal, estimated at 50-55%. 4. There is mildly increased left ventricular wall thickness. 5. The left ventricular diastolic function is grade I diastolic dysfunction. 6. Right ventricular chamber dimension is mildly enlarged. 7. Right ventricular systolic function is normal. 8. Left atrial chamber dimension is mildly enlarged. 9. There is moderate aortic valve calcification. 10. There is mild aortic valve stenosis. 11. There is mild mitral valve regurgitation. 12. There is mild tricuspid valve regurgitation. Left Ventricle Left ventricular chamber dimension is normal. Left ventricular systolic function is normal, estimated at 50-55%. There is mildly increased left ventricular wall thickness. The left ventricular diastolic function is grade I diastolic dysfunction. Right Ventricle Right ventricular chamber dimension is mildly enlarged. Right ventricular systolic function is normal. Left Atria Left atrial chamber dimension is mildly enlarged. Right Atria Right atrial chamber dimension is normal. Atrial Septum Intact interatrial septum visualized by color flow imaging. Aortic Valve The aortic valve is not well visualized. There is mild aortic valve stenosis. There is moderate aortic valve calcification. Pulmonic Valve The pulmonic valve is not well visualized. Mitral Valve There is mild mitral valve regurgitation. Tricuspid Valve There is mild tricuspid valve regurgitation. Pericardium/Pleural There is no pericardial effusion. Inferior Vena Cava Inferior vena cava is not well visualized. Aorta The aortic root size at the sinus of Valsalva is normal. Left Ventricular Outflow Tract Name Value Normal LVOT 2D LVOT Diameter 2.0 cm LVOT Doppler LVOT Peak Gradient 2 mmHg LVOT Mean Gradient 2 mmHg LVOT VTI 20 cm LVOT VTI/AV VTI Ratio 0.6 LVOT Stroke Volume 66 ml LVOT CO 3.6 l/min LVOT CI 1.8 l/min/m2 Pulmonic Valve Name Value Normal PV Doppler PV Peak Gradient 3 mmHg Mitral Valve Name Value Normal MV Doppler MV Peak Gradient 2 mmHg MV Mean Gradient 1 mmHg MV Decel [place] 164 cm/s2 MV PHT 100 ms MV Area (PHT) 2.2 cm2 4.0-5.0 MV Area (Cont Eq VTI) 3.0 cm2 MV Regurgitation Doppler MR Peak Gradient 112 mmHg MV Diastolic Function MV E Peak Velocity 57 cm/s MV A Peak Velocity 65 cm/s MV E/A 0.9 MV Decel Time 345 ms MV Annular TDI MV E/e' (Septal) 10.1 <=8.0 MV E/e' (Lateral) 11.0 <=8.0 MV E/e' (Average) 10.5 Tricuspid Valve Name Value Normal TV Regurgitation Doppler TR Peak Velocity 277 cm/s TR Peak Gradient 27 mmHg Aorta Name Value Normal Ascending Aorta Ao Root Diameter (MM) 3.2 cm Ao Root Diam Index (MM) 1.6 cm/m2 Aortic Valve Name Value Normal AV Doppler AV Peak Velocity 138 cm/s AV Peak Gradient 6 mmHg AV Mean Gradient 4 mmHg AV VTI 34 cm AV Area (Cont Eq VTI) 1.9 cm2 >=3.0 AV Area (Cont Eq Rc) 2.0 cm2 AV Regurgitation 2D LVOT Area 3.2 cm2 Ventricles Name Value Normal LV Dimensions 2D/MM IVS Diastolic Thickness (2D) 1.0 cm 0.6-1.0 LVID Diastole (2D) 5.0 cm 4.2-5.8 LVIW Diastolic Thickness (2D) 1.1 cm 0.6-1.0 LVID Systole (2D) 3.5 cm 2.5-4.0 LVOT Diameter 2.0 cm LV Mass (2D Cubed) 185.24 g 88.00-224.00 LV Mass Index (2D Cubed) 95 g/m2 49-115 Relative Wall Thickness (2D) 0.42 LV Fractional Shortening/Ejection Fraction 2D/MM LV Fractional Shortening (2D) 30 % 25-43 LV EF (2D Teicholz) 56 % 52-72 LV Diastolic Volume (4C MOD) 128 ml LV EF (4C MOD) 55 % LV Diastolic Length (4C) 8.9 cm LV Systolic Length (4C) 7.5 cm LV Stroke Volume (4C MOD) 70 ml Atria Name Value Normal LA Dimensions LA Dimension (MM) 4.4 cm 3.0-4.1 LA Volume (4C A-L) 65 ml Report Signatures
[2024-02-24 06:23] LABS: Basophils Absolute Auto 0.1 K/mm3 (0.0-0.1); Basophils Percent Auto 0.9 % (0.2-1.2); Eosinophils Absolute Auto 0.3 K/mm3 (0-0.3); Eosinophils Percent Auto 3.9 % (0-4.4); Hematocrit 35.8 % (42.0-52.0); Hemoglobin 12.1 g/dL (14.0-18.0); Immature Granulocyte Absolute 0.04 K/mm3 (0.00-0.031); Immature Granulocyte Percent A 0.6 % (0-0.5); Lymphocytes Absolute Auto 0.95 K/mm3 (0.9-3.2); Lymphocytes Percent Auto 14.7 % (18.3-44.2); Mean Corpuscular HGB Conc 33.8 g/dl (32-36); Mean Corpuscular Hemoglobin 32.6 pg (26-34); Mean Corpuscular Volume 96.5 fl (80-100); Mean Platelet Volume 8.9 fl (7.4-10.4); Monocytes Absolute Auto 0.8 K/mm3 (0.1-0.6); Monocytes Percent Auto 11.9 % (2.6-8.5); Neutrophils Absolute Auto 4.4 K/mm3 (1.3-6.7); Platelet Count Result 174 k/mm3 (150-375); Red Blood Count 3.71 M/mm3 (4.6-6.20); Red Cell Distribution Width 12.5 % (11.5-14.5); White Blood Count 6.5 K/mm3 (4.5-10.0)
[2024-02-24 06:38] LABS: Alanine Aminotransferase 18 U/L (6-50); Albumin Level 3.3 g/dL (3.5-5.1); Alkaline Phosphatase 56 U/L (38-126); Anion Gap 4 mmol/L (4-12); Aspartate Amino Transferase 19 U/L (17-59); Bilirubin,Total 0.5 mg/dL (0.2-1.3); Blood Urea Nitrogen 14 mg/dL (9-20); Calcium 8.8 mg/dL (8.4-10.2); Carbon Dioxide 27 mmol/L (22-30); Chloride 101 mmol/L (98-107); Estimated CRCL calculation 63 ml/min; Estimated Glomerular Filt Rate > 60; Glucose 82 mg/dL (65-110); Magnesium 1.8 mg/dL (1.6-2.3); Sodium 132 mmol/L (137-145)
[2024-02-24] MEDS: ROSUVASTATIN 20 MG TABLET 40 MG PO (09:42)
[2024-02-24] MEDS: OPTI-GEN TAB 1 TABLET PO (09:42)
[2024-02-24] MEDS: CLOPIDOGREL BISULFATE 75 MG TABLET PO (09:42)
[2024-02-24] MEDS: levETIRAcetam 500 MG TABLET 1000 MG PO ×2 (09:42→20:42)
[2024-02-24] MEDS: PANTOPRAZOLE 40 MG TABLET PO ×2 (09:42→20:41)
[2024-02-24] MEDS: VITAMIN B COMPLEX CAPSULE 1 CAP PO (09:42)
[2024-02-24] MEDS: METOPROLOL SUCCINATE EXT REL 50 MG TABCR PO (09:42)
--- NOTE | 2024-02-24 09:54 | P.CONNEU_ITS ---
Assessment and Plan Assessment and plan (1) Hx of seizure disorder: Code(s): Z86.69 - Personal history of other diseases of the nervous system and sense organs Status: Acute (2) Fall: Qualifiers: Encounter type: initial encounter Qualified Code(s): W19.XXXA - Unspecified fall, initial encounter Code(s): W19.XXXA - Unspecified fall, initial encounter Status: Acute (3) History of multiple cerebrovascular accidents (CVAs): Code(s): Z86.73 - Personal history of transient ischemic attack (TIA), and cerebral infarction without residual deficits Status: Acute (4) Orthostasis: Code(s): I95.1 - Orthostatic hypotension Status: Acute Plan 1. Bihemispheric strokes as documented by the clinical exam as well as by the MRI of the brain. 2. Abnormal EEG because of the underlying structural abnormalities but it is not paroxysmal. 3. Likely candidate to have the seizures because of the structural lesions he is already receiving levetiracetam 1000mg twice a day. 4. His already on clopidogrel 5mg daily which can be continued as such 5. Orthostasis hypotension as per the symptomatology with resultant unresponsiveness for short duration but this particular episode does not look like seizure. 6. Considering the multiple medical problems he needs to continue on clopidogrel, levetiracetam, rosuvastatin, vitamin supplements, and will need assistance at home to avoid the falls because of the orthostatic symptomatology. Consult date: 02/24/24 HPI: Ramiro Enciso is a 83 year old male Admitted to the hospital through the emergency room with history of syncopal event while he was on the restroom toilet. He reported that he was getting dressed up but off the toilet seat and felt profoundly weak dizzy and fell to the ground and struck his head he also mentioned that he thinks that he lost consciousness he was unable to get off the ground secondary to profound weakness but once he was assisted he was able to stand on his own. He also complains of intermittent chest pain and spells when he gets dizzy and weak patient does have ongoing history of 1. Coronary artery disease with history of multiple stents placement 2. Hypertension 3. Diabetes mellitus 4. History of multiple strokes. Been taking multiple medications which includes amiodarone 200mg daily. He is not allergic to any medications. He does have ongoing history of 1. Hypertension 2. Diabetes mellitus 3. Generalized anxiety disorder 4. Ischemic cardiomyopathy 5. History of recurrent stroke without any residual 6. Glaucoma and 7. Epilepsy. Undergone bilateral knee replacements, and coronary artery stenting in addition to superior mesenteric artery stenosis as well. He has history of years smoked 10 smoking pack years of 15 but at present is a former smoker and former alcohol intaker. On initial evaluation in the emergency room his vital signs were normal CBC was normal BMP with sodium of 132 mass scan was normal chest x-ray documented only aortic and coronary atherosclerosis CT scan of the head documented old cerebellar hemispheric stroke and upper right parietal lobe and left and small right occipital infarct EKG with now any atrial fibrillation but bundle branch block, MRI has been done which documents old infarcts involving the right frontal and parietal lobes, bilateral occipital lobes, bilateral cerebellar area Review of Systems 2 Review of Systems: All systems reviewed & are unremarkable except as noted in HPI and below PMFSH Past Medical History Medical History History of GI diverticular bleed April 2023 Chronic vascular disorders of intestine Essential (primary) hypertension Type 2 diabetes mellitus with other diabetic kidney complication Cerebral atherosclerosis Epilepsy, unspecified, not intractable, without status epilepticus Generalized anxiety disorder Atherosclerotic heart disease of [place] coronary artery with unspecified angina pectoris Ischemic cardiomyopathy History of CVA (cerebrovascular accident) x4 without any residual Glaucoma Chronic GERD Hyperlipidemia Surgical History Surgical History Superior mesenteric artery stenosis (~2020) Stented History of open reduction and internal fixation (ORIF) procedure Right hip fracture 02/05/2023 History of bilateral knee replacement left 2009 right 2019 Hx of cholecystectomy 1999 History of cataract extraction Stented coronary artery x4 Family History Family History Father Cerebrovascular accident Sibling Breast cancer Sister Diabetes mellitus Kidney failure Social History Social History Social History: He reports he lives with his of 57 years. He had 3 children with his 1st and 2 children with his 2nd as far as he knows all of his children are healthy. 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 He reports that he smoked cigarettes for about 5-10 years when he was quite young. He used to occasionally smoke a cigar but has not done so in about 35 years. He denies any significant alcohol use. He ambulates with a walker. He no longer drives. Code status: DNR/DNI (patient states that he and his have advanced directives in place and that they would not want heroic measures) Smoking packs per day: 1.5 Smoking cigarettes per day: 30.0 Years smoked: 10 Smoking pack-years: 15.00 Smoking status: Former smoker Tobacco type: cigars and smokeless tobacco Smokeless tobacco user: chewing tobacco Second hand tobacco smoke exposure: Yes Additional smoking assessment comments: Quit chewing tobacco in 2022 Alcohol intake: former Substance use: never Substance use type: does not use Do You Feel Safe in your Home?: Yes Lack of Transportation: No Lack of Food: Never True Current Housing: I Have Housing Concerned About Future Housing: No Difficulty Paying Gas/Electric Bills: No Difficulty Paying for Meds: No Currently Unemployed: No Education: Trade/Vocational Certificate Difficulty w/ Childcare or Family Care: No Living arrangements: with family Occupation/Education: retired Gender identity (if verbalized by the patient): Male Spiritual care concerns: No Meds Home Medications and Allergies Home Medications ?Medication ?Instructions ?Recorded ?Confirmed ?Type ascorbic acid (vitamin C) 500 mg 500 mg PO DAILY 06/29/21 02/22/24 History tablet vit C 250 mg-vit E 90 mg-zinc 40 1 tablet PO BID 06/29/21 02/22/24 History mg-copper 1 nw-dakkeo-mztrqu capsule (PreserVision AREDS-2) vitamin B complex (B 1 tablet PO DAILY 06/29/21 02/22/24 History Complex-Vitamin B12 tablet) acetaminophen 500 mg capsule 500 mg PO BID 04/16/22 02/22/24 History cholecalciferol (vitamin D3) 125 50 mcg PO DAILY 04/16/22 02/22/24 History mcg (5,000 unit) capsule coenzyme Q10 100 mg capsule 200 mg PO DAILY 04/16/22 02/22/24 History omega 7-hlt-wrf-fish oil 1,200 mg 1 cap PO DAILY 04/16/22 02/22/24 History (144 mg-216 mg) capsule (Fish Oil) zpsxcpgcxdjm-chvbxzgm-edhtij tablet 1 tablet PO DAILY 02/05/23 02/22/24 History ferrous sulfate 325 mg (65 mg 325 mg PO DAILY #90 tabs 08/20/23 02/22/24 Rx iron) tablet clopidogrel 75 mg tablet 75 mg PO DAILY #90 tabs 01/07/24 02/22/24 Rx levetiracetam 1,000 mg tablet 1,000 mg PO BID #180 tabs 01/07/24 02/22/24 Rx metoprolol succinate 50 mg 50 mg PO DAILY #100 tabs 01/07/24 02/22/24 Rx tablet,extended release 24 hr pantoprazole 40 mg tablet,delayed 40 mg PO BID 4 weeks #56 tabs 01/07/24 02/22/24 Rx release (Protonix) rosuvastatin 40 mg tablet 40 mg PO DAILY #90 tabs 01/07/24 02/22/24 Rx Allergies Allergy/AdvReac Type Severity Reaction Status Date / Time No Known Allergies Allergy Verified 02/22/24 14:04 Vital Signs Vital Signs - 24 hr 02/23/24 12:15 02/23/24 13:56 02/23/24 14:20 Temperature 36.5 C Pulse Rate 71 75 68 Respiratory Rate 19 20 16 Blood Pressure 129/59 L 129/59 L 131/65 Pulse Oximetry 98 98 100 Oxygen Delivery 02/23/24 14:40 02/23/24 16:00 02/23/24 20:00 Temperature Pulse Rate 60 72 Respiratory Rate Blood Pressure Pulse Oximetry 100 Oxygen Delivery Room Air 02/23/24 20:00 02/23/24 20:30 02/24/24 00:00 Temperature 36.8 C Pulse Rate 72 70 62 Respiratory Rate 16 16 Blood Pressure 113/58 L Pulse Oximetry 100 100 Oxygen Delivery Room Air 02/24/24 04:00 02/24/24 06:00 02/24/24 08:00 Temperature 36.5 C Pulse Rate 61 60 70 Respiratory Rate 16 Blood Pressure 108/50 L Pulse Oximetry 99 Oxygen Delivery 02/24/24 09:33 02/24/24 09:34 02/24/24 09:36 Temperature Pulse Rate 65 64 80 Respiratory Rate Blood Pressure 119/54 L 101/54 L 132/76 Pulse Oximetry Oxygen Delivery 02/24/24 09:42 Temperature Pulse Rate 80 Respiratory Rate Blood Pressure Pulse Oximetry Oxygen Delivery Exam 2 Narrative: Exam today revealed him to be awake alert cooperative in no obvious acute distress, head normocephalic with no cranial bruit, ear nose throat examination normal, neck supple with no cervical bruits no thyromegaly no lymphadenopathy, heart regular with no murmur, lungs clear to auscultation, abdomen is soft nontender normal bowel sounds, neurological examination revealed him to be awake alert able to follow the verbal commands intermittently appropriately, his speech not dysarthric mildly dysphasic, pupils round regular, feels the vision or unreliable tended to neglect bilaterally, extraocular movements are spontaneously full in the horizontal gaze only, face asymmetrical, tongue in the oral cavity with no fasciculation, uvula in the midline, motor examination revealed him to have generalized decrease in the strength 3 to 4/5 with brisk reflex and upgoing plantar responses, has difficulties in performing hzwasm-lv-wrap to finger and he was unable to follow the instruction for heel to knee to barger. He was able to sit in bed but he was not able to stand and walk. Results Labs 02/24/24 05:20 02/24/24 05:20 Labs: Short CBC 02/24/24 Range/Units 05:20 WBC 6.5 (4.5-10.0) K/mm3 Hgb 12.1 L (14.0-18.0) g/dL Hct 35.8 L (42.0-52.0) % Plt Count 174 (150-375) k/mm3 BMP 02/24/24 05:20 Sodium 132 L Potassium 4.0 Chloride 101 Carbon Dioxide 27 BUN 14 Creatinine 0.78 Glucose 82 Calcium 8.8 Liver Function 02/24/24 Range/Units 05:20 Total Bilirubin 0.5 (0.2-1.3) mg/dL AST 19 (17-59) U/L ALT 18 (6-50) U/L Alkaline Phosphatase 56 (38-126) U/L Albumin 3.3 L (3.5-5.1) g/dL
--- NOTE | 2024-02-24 11:58 | P.PNIM_ITS ---
Progress Note: A&P Assessment and Plan (1) Fall: Code(s): W19.XXXA - Unspecified fall, initial encounter Status: Acute Assessment and Plan: * Fall precautions for safety. (2) Lightheaded: Code(s): R42 - Dizziness and giddiness Status: Acute Assessment and Plan: Orthostatic vital signs wnl f/u EEG, ECHO MRI brain no acute changes --PT/OT 02/23/24: * Awaiting results of EEG and MRI. * Continue PT and OT consult * Continue telemetry * Neuro eval pending (3) Hx of seizure disorder: Code(s): Z86.69 - Personal history of other diseases of the nervous system and sense organs Status: Acute Assessment and Plan: Report of 2 seizures after his first stroke. No tonic clonic seizures per patient's but has staring episodes sometimes. Hasn't been on keppra recently. Not seeing a neurologist. --1000mg IV keppra, then resume PO 1000mg BID, adjust dose per neurology --Neurology consult --EEG 02/23/24: * No acute s/s of seizures. * Continue keppra * Awaiting Neuro evaluation for further management. (4) Ischemic cardiomyopathy: Code(s): I25.5 - Ischemic cardiomyopathy Status: Chronic Assessment and Plan: Follows with PCP, per notes: cardiac cath in 2021 showed right dominant system with significantly calcified coronary arteries. Previously deployed stent in the LAD with mild loss of lumen, jailing a small to medium-sized 1st diagonal which has an 80% lesion in it.... 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 07/08 TTE left ventricular systolic function is normal, estimated at 50 to 55%. There is mild increased left ventricular wall thickness. The left ventricular diastolic function is grade 1 diastolic dysfunction.... There is moderate aortic valve sclerosis. There is mild mitral valve regurgitation. --Continue Plavix and metoprolol Plan DVT prophylaxis on Sq Lovenox Subjective Date/time seen: 02/24/24 11:58 Interval history: Orthostatic vital signs resolved awaiting CHAD, ECHO PT/OT eval otherwise patient was comfortable at bedside Review of Systems Review of Systems: 83-year-old male with complex past medic al history including coronary artery disease with multiple stents, hypertension, diabetes, multiple strokes in the past with no appreciable residual deficits. Patient is not any kind of anticoagulation medications. Today he had a syncopal event while he was on the restroom toilet. All systems reviewed & are unremarkable except as noted in HPI and below Exam Narrative: General - Awake and alert. No acute distress, underweight Eyes - PERRLA, EOM intact ENT - No thrush, No erythema Neck - No noticeable or palpable swelling Lymph Nodes - No lymphadenopathy Cardiovascular - RRR no m/r/g, no JVD Lungs: Clear to auscultation, No wheezing, use of accessory muscles, no crackles or wheezes. Skin - Skin warm and dry, no wounds or rashes Abdomen - Normal bowel sounds, abdomen soft and nontender Extremities - No edema, cyanosis or clubbing Musculoskeletal - 5/5 strength, normal range of motion, no swollen or erythematous joints. Neurological ? Alert and oriented x 3, CN 2-12 grossly intact with the exception of a left sided visual field defect, and ataxia, especially right arm/hand with finger to nose test. Visible nystagmus and impaired vision Psych: Normal mood and affect Const: General: comfortable and no acute distress Other: Elderly male pt lying supine on stretcher at this time in no acute distress. HENMT: Face/Nose/Sinus: Normal nares present Mouth: Yes moist mucous membranes Eyes: General: appearance normal, both eyes and all related structures Pupils: Equal, round and reactive pupils present EOM: EOMs intact bilaterally Other: tracks appropriately without any nystagmus. Neck: Neck: supple and no JVD Resp: Effort & Inspection: normal respiratory effort Auscultation: clear to auscultation bilaterally Cardio: Rate: regular rate Rhythm: regular rhythm Heart sounds: Murmur heart sound present systolic holo and II/ Skin: General skin exam: normal color, no erythema and lesion (scattered bruising on BUE.) Lesions: lesion noted (scattered bruising on BUE.) Neuro: Cranial nerves: Yes Equal, round and reactive pupils present Speech: normal speech Motor exam (neuro): 5/5 motor strength present throughout and Normal motor muscle tone present throughout Sensory Exam: normal sensation Extrem: General: normal to inspection and no edema Psych: Mental Status: mental status grossly normal Objective Data Vital Signs Vital Signs: Vital Signs - 24 hr 02/23/24 12:15 02/23/24 13:56 02/23/24 14:20 Temperature 97.7 F Pulse Rate 71 75 68 Respiratory Rate 19 20 16 Blood Pressure 129/59 L 129/59 L 131/65 Pulse Oximetry 98 98 100 Oxygen Delivery 02/23/24 14:40 02/23/24 16:00 02/23/24 20:00 Temperature Pulse Rate 60 72 Respiratory Rate Blood Pressure Pulse Oximetry 100 Oxygen Delivery Room Air 02/23/24 20:00 02/23/24 20:30 02/24/24 00:00 Temperature 98.2 F Pulse Rate 72 70 62 Respiratory Rate 16 16 Blood Pressure 113/58 L Pulse Oximetry 100 100 Oxygen Delivery Room Air 02/24/24 04:00 02/24/24 06:00 02/24/24 08:00 Temperature 97.7 F Pulse Rate 61 60 70 Respiratory Rate 16 Blood Pressure 108/50 L Pulse Oximetry 99 Oxygen Delivery 02/24/24 09:33 02/24/24 09:34 02/24/24 09:36 Temperature Pulse Rate 65 64 80 Respiratory Rate Blood Pressure 119/54 L 101/54 L 132/76 Pulse Oximetry Oxygen Delivery 02/24/24 09:42 02/24/24 09:42 Temperature Pulse Rate 80 Respiratory Rate Blood Pressure Pulse Oximetry 99 Oxygen Delivery Room Air Intake/Output Intake/Output: Intake & Output 02/21/24 02/22/24 02/23/24 02/24/24 23:59 23:59 23:59 23:59 Intake Total 1100 360 440 Output Total 600 Balance 1100 -240 440 Meds/Results Medications: Active Medications Generic Name Dose Route Start Last Admin Trade Name Freq PRN Reason Stop Dose Admin Acetaminophen 1,000 mg 02/22/24 17:16 02/23/24 23:20 Acetaminophen 500 Mg Tablet PO 1,000 mg Q6H PRN Administration Mild Pain (1-3) or Fever Clopidogrel Bisulfate 75 mg 02/23/24 09:00 02/24/24 09:42 Clopidogrel Bisulfate 75 Mg Tablet PO 75 mg DAILY EMELINA Administration Levetiracetam 1,000 mg 02/22/24 21:00 02/24/24 09:42 Levetiracetam 500 Mg Tablet PO 1,000 mg Q12HR EMELINA Administration Metoprolol Succinate 50 mg 02/23/24 09:00 02/24/24 09:42 Metoprolol Succinate Ext Rel 50 Mg Tabcr PO 50 mg DAILY EMELINA Administration Multivitamins/Minerals 1 tablet 02/23/24 09:00 02/24/24 09:42 Opti-Gen Tab PO 1 tablet DAILY EMELINA Administration Pantoprazole Sodium 40 mg 02/22/24 21:00 02/24/24 09:42 Pantoprazole 40 Mg Tablet PO 40 mg Q12HR EMELINA Administration Perflutren Lipid Microsphere 0 ml 02/24/24 08:49 Perflutren Lipid Microspheres 1.5 Ml Vial Diluted To 10 Ml Total Volume IV PUSH 02/27/24 08:49 ONCE PRN adequate visualization Protocol Rosuvastatin Calcium 40 mg 02/23/24 09:00 02/24/24 09:42 Rosuvastatin 20 Mg Tablet PO 40 mg DAILY EMELINA Administration Vitamin B Complex 1 cap 02/23/24 09:00 02/24/24 09:42 Vitamin B Complex Capsule PO 1 cap DAILY EMELINA Administration Radiology Results: ITS Impressions Chest X-Ray 02/22/24 10:32 IMPRESSION: No active cardiopulmonary disease Aortic and coronary atherosclerosis Head CT 02/22/24 10:41 IMPRESSION: 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 Labs Labs: Laboratory Results - last 24 hr 02/24/24 05:20 WBC 6.5 RBC 3.71 L Hgb 12.1 L Hct 35.8 L MCV 96.5 MCH 32.6 MCHC 33.8 RDW 12.5 Plt Count 174 MPV 8.9 Immature Gran % (Auto) 0.6 H Neut % (Auto) 68.0 Lymph % (Auto) 14.7 L [place] % (Auto) 11.9 H Eos % (Auto) 3.9 Baso % (Auto) 0.9 Lymph # (Auto) 0.95 [place] # (Auto) 0.8 H Eos # (Auto) 0.3 Baso # (Auto) 0.1 Abs Immat Gran (auto) 0.04 H Absolute Neuts (auto) 4.4 Absolute Nucleated RBC 0.000 Nucleated RBC % 0.0 Sodium 132 L Potassium 4.0 Chloride 101 Carbon Dioxide 27 Anion Gap 4 BUN 14 Creatinine 0.78 Estim Creat Clear Calc 63 Estimated GFR > 60 Glucose 82 Calcium 8.8 Magnesium 1.8 Total Bilirubin 0.5 AST 19 ALT 18 Alkaline Phosphatase 56 Total Protein 6.0 L Albumin 3.3 L Quality VTE Prophylaxis VTE prophylaxis: mechanical ordered
--- NOTE | 2024-02-24 12:37 | WPDNEUROLOGY ---
Neurology EEG Report General Information Date of Study: 02/24/24 TEST eeg DIAGNOSIS Syncopal episode. CONDITION OF RECORDING awake ,drowsy and asleep. EEG NUMBER [id number] CLINICAL HISTORY patient reportedly was at home in the bathroom when he became dizzy and felt weak and slid to the floor. Does not believe that he lost the consciousness. EEG DESCRIPTION Background rhythm consists of low to medium voltage 5 to 7 hertz per 2nd theta activity over the right hemisphere and low voltage 8 to 9 hertz per 2nd alpha activity posteriorly over the left hemispheric linkages. poor julia posterior gradient is noted .low voltage beta activity seen diffusely during sleep admixed with waxing and waning posterior alpha rhythm. Hyperventilation not done. Photic stimulation not done. Non paroxysmal. Focal lateralizing. IMPRESSION Abnormal record due to the presence of asymmetrical asynchronous theta activity prominent over the right hemisphere but without evidence of any paroxysmal discharge. Clinical correlation recommended these abnormalities are suggestive of underlying structural lesion. There is no evidence of any paroxysmal discharges on this tracing.
[2024-02-24] MEDS: ACETAMINOPHEN 500 MG TABLET 1000 MG PO (19:45)
[2024-02-25] VITALS (10 sets, daily range): BP systolic 111–127; BP diastolic 53–67; PULSE 52–76; RESP 18; TEMP 36.4–36.8; O2SAT 95–100
[2024-02-25] MEDS: ACETAMINOPHEN 500 MG TABLET 1000 MG PO ×2 (05:45→18:11)
[2024-02-25] MEDS: OPTI-GEN TAB 1 TABLET PO (09:03)
[2024-02-25] MEDS: PANTOPRAZOLE 40 MG TABLET PO (09:03)
[2024-02-25] MEDS: ENOXAPARIN 40 MG/0.4 ML SYRINGE SUB-Q (09:03)
[2024-02-25] MEDS: levETIRAcetam 500 MG TABLET 1000 MG PO (09:03)
[2024-02-25] MEDS: CLOPIDOGREL BISULFATE 75 MG TABLET PO (09:03)
[2024-02-25] MEDS: ROSUVASTATIN 20 MG TABLET 40 MG PO (09:04)
[2024-02-25] MEDS: METOPROLOL SUCCINATE EXT REL 50 MG TABCR PO (09:04)
[2024-02-25] MEDS: VITAMIN B COMPLEX CAPSULE 1 CAP PO (09:04)
--- NOTE | 2024-02-25 15:53 | P.DS_ITS ---
DS: Admitting Diagnosis Discharge Date 02/25/24 Admitting Diagnosis Fall DS: Discharge Diagnosis Discharge Diagnosis (1) Fall: Qualifiers: Encounter type: initial encounter Qualified Code(s): W19.XXXA - Unspecified fall, initial encounter Code(s): W19.XXXA - Unspecified fall, initial encounter Status: Acute DS: Summary Hospital Course Hospital Course: 83-year-old male with complex past medical history including coronary artery disease with multiple stents, hypertension, diabetes, multiple strokes in the past, admitted after a fall. He reports feeling more unsteady intermittently all week. Discussed with his and she says at baseline he has some confusion and poor vision with abnormal eye movements. She helps him walk with his walker to the bathroom during the day, makes him food, helps him get dressed. Otherwise, they spend most of the day sitting in their recliners. Today he didn't take his walker into the bathroom with him and he was unsteady and fell, though he also reports feeling lightheaded and possible vertigo. He reported that the room moves sometimes, but during the fall it went black but she was in the room with him and it didn't seem like he lost consciousness to her. His found his pill bottles and read them to me over the phone. He is only taking 3: Home meds: Metoprolol 50mg daily, Clopidogrel 75mg, Rosuvastatin 40mg daily. He chose to stop taking iron pills a month ago because his stools were black. He was previously on keppra but stopped it at some point, she's not sure who told him to stop it if anyone. His has not noticed episodes of shaking. He does have episodes sometimes when he has a deep stare and won't respond to her for a couple of minutes. She was unable to get him up off the floor so she called her son to help and called EMS. In the ER, VSS: afebrile, HR 93, RR 17-20, BP 150/86. Labs: Na 132, normal creatinine, troponins negative x2, CBC, normal. EKG NSR with a right bundle branch block. A Head CT showed no acute findings. He reported a headache, which he has intermittently and noted that he missed his morning coffee. Otherwise no new symptoms this week per discussion from his , says he is eating and drinking well. He also denied nausea, or other new complaints except feeling more unsteady. He was A&Ox3 and exam was nonfocal with the exception of nystagmus and ataxia, especially noticeable with his right arm with a finger to nose test, with a left visual field defect. Patient was managed for fall likely from orthostatic hypotension with IVVF, orthostatic hypotension resolved. ECHO showed EF 50-55% with grade I diastolic dysfunction. MRI brain no acute changes. EEG showed Abnormal record due to the presence of asymmetrical asynchronous theta activity prominent over the right hemisphere but without evidence of any paroxysmal discharge. Neurology was consulted and he evaluated noted that EEG finding findings is related to underlying structural lesion however MRI did not any acute changed; recommended continuing home Plavix, Keppra and Statin. Family wanted SNF placement however PT patti noted that patient is doing so well that he does not qualify for SNF placement. emergency response coordinator explored a lot of options and eventually settled for patient follow up with PCP in a couple days for Assisted living facility. Patient will continue F/u with PCP in 3-5 days, and with Neurology as instructed Continue home meds. Time Spent with Patient Time attestation: Total time spent providing and/or coordinating discharge services: Discharge Plan Discharge Attending physician on discharge: Frankie Weaver Consulting providers: Rosario De La Torre Discharging Clinician: Frankie Weaver Anticipated Discharge Date/Time: 02/25/24 15:48 Patient Disposition: Home, Self-Care Activity: as tolerated Diet: as tolerated Patient Instructions: Antibiotic Form, Clopidogrel (By mouth), Syncope (DC), Pain Management (DC) Patient Language: Upper Sorbian Stand Alone Forms: General Discharge Information Follow-up/Referrals: David Ramon MD [Primary Care Provider] - (F/u with PCP in 3-5 days ) Rosario De La Torre MD [Physician] - (F/u with Neurology as instructed ) Discharge Medications: Continued clopidogrel 75 mg tablet 75 mg PO DAILY Qty: 90 1RF levetiracetam 1,000 mg tablet 1,000 mg PO BID Qty: 180 1RF metoprolol succinate 50 mg tablet extended release 24 hr 50 mg PO DAILY Qty: 100 1RF pantoprazole [Protonix] 40 mg tablet,delayed release (DR/EC) 40 mg PO BID 28 Days Qty: 56 0RF rosuvastatin 40 mg tablet 40 mg PO DAILY Qty: 90 1RF coenzyme Q10 100 mg capsule 200 mg PO DAILY cholecalciferol (vitamin D3) 125 mcg (5,000 unit) capsule 50 mcg PO DAILY acetaminophen 500 mg capsule 500 mg PO BID omega 5-xll-xds-fish oil [Fish Oil] 1,200 (144-216) mg capsule 1 cap PO DAILY ferrous sulfate 325 mg (65 mg iron) tablet 325 mg PO DAILY Qty: 90 0RF ascorbic acid (vitamin C) 500 mg Tablet 500 mg PO DAILY vitamin B complex [B Complex-Vitamin B12] Tablet 1 tablet PO DAILY PreserVision AREDS-2 250-90-40-1 mg Capsule 1 tablet PO BID wpqjfwweojtz-tncphqrk-piyzuo Tablet 1 tablet PO DAILY Date of admission: 02/22/24 11:45 Primary Care Provider: David Ramon Admitting Provider: Colby Olson Attending physician on admission: Halie Barreto Condition: Stable
--- OUTSIDE RECORDS SUMMARY | 2024-02-29 05:23 | XMS_ITS | Encounter Summary ---
Author Organization [facility] Address [address] [place] [address] Care Team Providers Care Panel Machine Tender Name Role Phone No, Physician Primary Care Provider [phone] Encounter Details Date Type Department Care Team (Late st Contact Info) Description 01/08/2021 Documentation [facility] Vascular and Vein Surgery [address] [place] [address] Kath Hall, RN Social History Tobacco Use Types Packs/Day Years Used Date Smoking Tobacco: Former Cigars Smokeless Tobacco: Former Comments:Quick 40years ago Sex and Gender Information Value Date Recorded Sex Assigned at Not on file Legal Sex Male 9:00 AM CDT Gender Identity Not on file Sexual Orientation Not on file documented as of this encounter Progress Notes * Kath Hall, RN - 01/08/2021 2:39 PM CST No auth required for cpt codes: 64176, 52927-29 per [employer]. Ref# [id number] s/w SHIRA LOOM WEAVER documented in this encounter Plan of Treatment Not on file documented as of this encounter Visit Diagnoses Not on filedocumented in this encounter Care Teams Panel Machine Tender Relationship Specialty Start Date End Date No, Physician PCP - General 09/03/20 01/08/21 documented as of this encounter
--- OUTSIDE RECORDS SUMMARY | 2024-02-29 05:23 | XMS_ITS | Encounter Summary ---
Author Organization [facility] Address [address] [place] [address] Care Team Providers Care Service Technician Name Role Phone No, Physician Primary Care Provider [phone] Encounter Details Date Type Department Care Team (Late st Contact Info) Description 09/05/2020 Orders Only [facility] Cardiology [address] [facility] [address] [place] [address] Carlos Painter MD [address] [facility] [address] [place] [address] Social History Tobacco Use Types Packs/Day Years Used Date Smoking Tobacco: Never Assessed Sex and Gender Information Value Date Recorded Sex Assigned at Not on file Legal Sex Male 9:00 AM CDT Gender Identity Not on file Sexual Orientation Not on file documented as of this encounter Plan of Treatment Not on file documented as of this encounter Procedures Procedure Name Priority Date/Time Associated Diagnosis Comments CARDIOLOGY DOCUMENT SCAN Routine 09/05/2020 documented in this encounter Results * SCAN - CARDIOLOGY (09/05/2020) Anatomical Region Laterality Modality Other Bronwyn Claros NP CV CARDIAC SERVICES PROCEDUR ES Final Result documented in this encounter Visit Diagnoses Not on filedocumented in this encounter Care Teams Service Technician Relationship Specialty Start Date End Date No, Physician PCP - General 09/03/20 01/08/21 documented as of this encounter
--- OUTSIDE RECORDS SUMMARY | 2024-02-29 05:23 | XMS_ITS | Encounter Summary ---
Author Organization [facility] Address [address] [place] [address] Care Team Providers Care Talent Scout Name Role Phone David Ramon MD Primary Care Provider [phone] Encounter Details Date Type Department Care Team (Late st Contact Info) Description 06/12/2021 Orders Only [facility] Cardiology [address] [place] [address] Aung Rick MD [address] [facility] [address] [facility] [address] [place] [address] Social History Tobacco Use Types Packs/Day Years Used Date Smoking Tobacco: Former Cigars Smokeless Tobacco: Current Snuff Comments:Quit 40years ago AUDIT-C Answer Date Recorded Q1: How often do you have a drink containing alc ohol? Monthly or less 01/12/2021 Q2: How many drinks containi ng alcohol do you have on a typical day when you are drinking? 1 or 2 01/12/2021 Q3: How often do you have si x or more drinks on one occasion? Never 01/12/2021 Sex and Gender Information Value Date Recorded Sex Assigned at Not on file Legal Sex Male 9:00 AM CDT Gender Identity Not on file Sexual Orientation Not on file documented as of this encounter Plan of Treatment Not on file documented as of this encounter Procedures Procedure Name Priority Date/Time Associated Diagnosis Comments CARDIOLOGY DOCUMENT SCAN Routine 06/12/2021 documented in this encounter Results * Cardiology Document Scan (06/12/2021) Anatomical Region Laterality Modality Other Bronwyn Claros NP CV CARDIAC SERVICES PROCEDUR ES Final Result documented in this encounter Visit Diagnoses Not on filedocumented in this encounter Care Teams Talent Scout Relationship Specialty Start Date End Date David Ramon MD [address] [place] [address] PCP - General Family Medicine 01/09/21 documented as of this encounter
--- OUTSIDE RECORDS SUMMARY | 2024-02-29 05:23 | XMS_ITS | Encounter Summary ---
Author Organization [facility] Medical [facility] Address [address] [place] [address] Care Team Providers Care Cryptologic Technician Operator/Analyst Name Role Phone David Ramon MD Primary Care Provider [phone] Encounter Details Date Type Department Care Team (Late st Contact Info) Description 06/13/2021 Orders Only [facility] Cardiology [address] [place] [address] Tricia Del Rio MD [address] [facility] [address] [facility] [address] [place] [address] Social History Tobacco Use Types [...] Associated Diagnosis Comments CARDIOLOGY DOCUMENT SCAN Routine 06/13/2021 documented in this encounter Results * Cardiology Document Scan (06/13/2021) Anatomical Region Laterality Modality Other Bronwyn Claros NP CV CARDIAC SERVICES PROCEDUR ES Final Result documented in this encounter Visit Diagnoses Not on filedocumented in this encounter Care Teams Cryptologic Technician Operator/Analyst Relationship Specialty Start Date End Date David Ramon MD [address] [place] [address] PCP - General Family Medicine 01/09/21 documented as of this encounter
--- OUTSIDE RECORDS SUMMARY | 2024-02-29 05:23 | XMS_ITS | Encounter Summary ---
Author Organization [facility] Healthcare Address [address] [place] [address] Care Team Providers Care Instrument Repair Specialist Name Role Phone David Ramon MD Primary Care Provider [phone] Reason for Referral * Diagnostic Imaging (Routine) - Closed Specialty Diagnoses / Procedures Referred By Xochitl hodge Referred To Contact Diagnoses Aftercare following surgery of the circulatory system, NEC Procedures US Duplex Scan of Aorta; Inferior Vena Cava, Iliac, Complete Rosalva Simmons MD [address] [place] [address] [address] [place] [address] Phone: tel: fax: [facility] [address] [place] [phone] Referral ID Status Reason Start Date Expiration Date Visits Re quested Visits Authorized [id number] Closed 01/30/2021 03/01/2022 1 1 SE PACKER Reason for Visit * Diagnostic Imaging (Routine) - Closed Specialty Diagnoses / Procedures Referred By Xochitl hodge Referred To Contact Diagnoses Aftercare following surgery of the circulatory system, NEC Procedures US Duplex Scan of Aorta; Inferior Vena Cava, Iliac, Complete Rosalva Simmons MD [address] [place] [address] [address] DEGRO[address] [place] [address] Phone: tel: fax: [facility] [address] [place] [phone] Referral ID Status Reason Start Date Expiration Date Visits Re quested Visits Authorized [id number] Closed 01/30/2021 03/01/2022 1 1 Encounter Details Date Type Department Care Team (Latest Contact Info) Description 03/02/2021 8:44 AM GREASE PACKER - 03/02/2021 11:59 PM GREASE PACKER Hospital Encounter [facility] [address] [place] [id number] Aftercare following surgery of the circulatory system, NEC Discharge Disposition: Discharge to home or self care Social History Tobacco Use Types Packs/Day Years [...] on file documented as of this encounter Medications at Time of Discharge acetaminophen (TYLENOL) 325 mg tablet Take 2 tablets (650 mg total) by mouth 2 (two) times a day as needed for pain ascorbic acid (VITAMIN C) 500 mg tablet,chewable Take 1 tablet/chew tab (500 mg total) by mouth daily aspirin 81 mg enteric coated tablet Take 1 tablet (81 mg total) by mouth daily atorvastatin (LIPITOR) 40 mg tablet Take 1 tablet (40 mg total) by mouth nightly clopidogreL (PLAVIX) 75 mg tablet Take 1 tablet (75 mg total) by mouth daily gemfibroziL (LOPID) 600 mg tablet Take by mouth 2 (two) times a day 12/16/2020 levETIRAcetam (KEPPRA) 1,000 mg tablet Take by mouth 2 (two) times a day 12/18/[address] (PROTONIX) 40 mg EC tablet Take by mouth 2 (two) times a day 12/16/2020 amLODIPine (NORVASC) 10 mg tablet Take 10 mg by mouth daily 05/07/2022 isosorbide mononitrate ER (IMDUR) 60 mg 24 hr tabletIndications :prevention of anginal pain in coronary artery disease Take 1 tablet (60 mg total) by mouth daily 30 tablet 11 12/18/2020 10/25/2021 metoprolol tartrate (LOPRESSOR) 25 mg immediate release tablet Take 50 mg by mouth 2 (two) times a day 05/07/2022 documented as of this encounter Discharge Disposition Disposition Code Departure Means Destination Discharge to home or self care documented in this encounter Plan of Treatment Not on file documented as of this encounter Procedures Procedure Name Priority Date/Time Associated Diagnosis Comments US DUPLEX SCAN OF AORTA: INFERIOR VENA CAVA, ILIAC, COMPLETE Schedule Routine, Read Routine (OP Routine) 03/02/2021 9:48 AM GREASE PACKER Aftercare following surgery of the circulatory system, NEC documented in this encounter Results * US Duplex Scan of Aorta; Inferior Vena Cava, Iliac, Complete (03/02/2021 9:48 AM GREASE PACKER) Anatomical Region Laterality Modality Vascular Ultrasound 03/02/2021 Narrative 03/05/2021 8:24 AM GREASE PACKER [email or web address] Job ID: [id number] [email or web address] Document ID: [id number] Dictated date/time: [id number] MESENTERIC ARTERY DUPLEX EXAM REASON FOR EXAM Status post SMA stent placement. Aortic peak systolic velocity is 89. ??SMA the origin is 241/58, proximal is 435/56, and mid is 259/38. ??Celiac axis velocity is 199/41, and the hepatic artery is 196/36 and splenic artery 281/59. OVERALL IMPRESSION Patent GUALLPA with stent in place. ??Velocities are elevated, but there is a stent there. JOB ID/VF JOB ID: ??[id number] Rosalva Simmons MD IM US PROCEDURES Final Result documented in this encounter Visit Diagnoses Diagnosis Aftercare following surgery of the circulatory system, NEC documented in this encounter Care Teams Instrument Repair Specialist Relationship Specialty Start Date End Date David Ramon MD [address] [place] [id number] PCP - General Family Medicine 01/09/21 documented as of this encounter
--- OUTSIDE RECORDS SUMMARY | 2024-02-29 05:23 | XMS_ITS | Encounter Summary ---
Author Organization [facility] Healthcare Address [address] [place] [address] Care Team Providers Care Analytical Data Scientist Name Role Phone David Ramon MD Primary Care Provider [phone] Encounter Details Date Type Department Care Team (Late st Contact Info) Description 11/21/[address] [facility] Medical Group Cardiology [address] [facility] [address] [facility] [address] [place] [address] Aung Rick MD [address] [facility] [address] [place] [address] Social History Tobacco Use Types Packs/Day Years Used Date Smoking Tobacco: Former Cigars Smokeless Tobacco: Current Snuff Comments:Quit 40years ago AUDIT-C Answer Date Recorded Q1: How often do you have a drink containing alc ohol? Monthly or less 07/13/2021 Average Number of Drinks Not on file 022 Frequency of Binge Drinking Not on file 06/18 Personal Safety Answer Date Recorded Getting School Help Needed Not on file 02/20 Sex and Gender Information Value Date Recorded Sex Assigned at Not on file Legal Sex Male 9:00 AM CDT Gender Identity Not on file Sexual Orientation Not on file documented as of this encounter Ordered Prescriptions Prescription Sig Dispense Quantity Refills Last Filled Start Date End Date amiodarone (PACERONE) 200 mg tablet Take 1 tablet (200 mg total) by mouth daily 30 tablet 11 11/21/2023 documented in this encounter Miscellaneous Notes * Addendum Note - Lyric Kerns, RN - 11/21/2023 1:46 PM CDTAddended by: LYRIC KERNS on: 11/21/2023 01:46 PM Modules accepted: Orders * Telephone Encounter - Lyric Kerns RN - 11/21/2023 1:46 PM CDT Called and spoke with pts , reviewed message from [facility] and she verbalized understanding. Sent new Rx to pharm. * Telephone Encounter - Lyric Kerns RN - 11/21/2023 11:32 AM CDT Will forward to [facility]-you posted monitor results in pts chart. Can I update the pt on findings? Please and thank you! Faxed monitor report to pts PCP as requested. * Telephone Encounter - Barbara Mckeon - 11/21/2023 10:53 AM CDT Renae from Dr. Ramon office requesting montior results be faxed to their office. Also requesting we contact pt to discuss results. Contact: documented in this encounter Plan of Treatment Not on file documented as of this encounter Visit Diagnoses Not on filedocumented in this encounter Care Teams Analytical Data Scientist Relationship Specialty Start Date End Date David Ramon MD [address] [place] [address] PCP - General Family Medicine 01/09/21 documented as of this encounter
--- OUTSIDE RECORDS SUMMARY | 2024-02-29 05:23 | XMS_ITS | Encounter Summary ---
Author Organization [facility] Address [address] [place] [address] Care Team Providers Care Panama Hat Hydraulic Press Operator Name Role Phone David Ramon MD Primary Care Provider [phone] Encounter Details Date Type Department Care Team (Late st Contact Info) Description 10/15/2021 Telephone [facility] Cardiology [address] [facility] [address] [place] [address] Bronwyn Claros NP [address] [facility] [address] [place] [address] Social History Tobacco Use Types Packs/Day Years Used Date Smoking Tobacco: Former Cigars Smokeless Tobacco: Current Snuff Comments:Quit 40years ago AUDIT-C Answer Date Recorded Q1: How often do you have a drink containing alc ohol? Monthly or less 07/13/2021 Average Number of Drinks Not on file 022 Frequency of Binge Drinking Not on file 06/18 Sex and Gender Information Value Date Recorded Sex Assigned at Not on file Legal Sex Male 9:00 AM CDT Gender Identity Not on file Sexual Orientation Not on file documented as of this encounter Miscellaneous Notes * Telephone Encounter - Henrietta Grove RN - 10/17/2021 9:12 AM CDT Spoke with Dr. Ramon's office, pts spouse called office and pt will be seen next week in the office. * Telephone Encounter - Henrietta Grove RN - 10/16/2021 9:12 AM CDT Discussed cardiac rehab fax with [facility]. Pt should f/u with pcp and go to er for any recurring episodes. Spoke with pts spouse. She states pt has a feeling of a cold chill starting at the top of his head and he gets really quiet. She states that it reminds her of when he had his stroke. I advised spouse to go to ER if pt has any more episodes like this and to call pcp to schedule appt to discuss. She verbalizes understanding. I tried to call pcp office, Dr. Ramon, and was unable to get an answer, will try back. * Telephone Encounter - Henrietta Grove RN - 10/15/2021 4:21 PM CDT Received letter from cardiac rehab today about pts session today. (Scanned in under media) Called pt to discuss further, no answer, unable to leave VM. Will have [facility] review note and try calling again. documented in this encounter Plan of Treatment Not on file documented as of this encounter Visit Diagnoses Not on filedocumented in this encounter Care Teams Panama Hat Hydraulic Press Operator Relationship Specialty Start Date End Date David Ramon MD [address] [place] [address] PCP - General Family Medicine 01/09/21 documented as of this encounter
--- OUTSIDE RECORDS SUMMARY | 2024-02-29 05:23 | XMS_ITS | Encounter Summary ---
Author Organization [facility] Address [address] [facility] [address] [place] [id number] Care Team Providers Care Real Estate Attorney Name Role Phone David Ramon MD Primary Care Provider Reason for Visit * Cardiology (Routine) - Closed Specialty Diagnoses / Procedures Referred By Contac t Referred To Contact Diagnoses Near syncope Procedures 24 HR Holter Monitor HI EXTERNAL ECG SCANNING ANALYSIS REPORT HI XTRNL ECG & 48 HR RECORDING Aung Rick MD [address] [facility] [address] [place] [address] Phone: tel: fax: [facility] Referral ID Status Reason Start Date Expiration Date Visits Re quested Visits Authorized [id number] Closed 11/07/2022 12/07/2023 1 1 Encounter Details Date Type Department Care Team (Late st Contact Info) Description 11/07/2022 11:00 AM CDT Ancillary Procedure [facility] Cardiology [address] [place] [id number] Near syncope Social History Tobacco Use Types Packs/Day Years [...] Procedure Name Priority Date/Time Associated Diagnosis Comments HOLTER MONITOR 24 HR Routine 11/07/2022 12:21 PM CDT Near syncope documented in this encounter Results * 24 HR Holter Monitor (11/07/2022 12:21 PM CDT) Anatomical Region Laterality Modality Other Narrative 11/12/2022 7:38 PM CDT AMBULATORY FIELD MARKETING REPRESENTATIVE REPORT Patient Name: Ramiro Enciso Date of : 1940 ?? Requesting Provider: ?? Aung Rick MD Referring provider: David Ramon MD Date of interpretation: 11/12/22 Type of monitor : ??24 hour Holter Date of the study/Enrollment period: ??11/07/2022 Indication: ??Syncope and collapse Quality of the study: ??Good Interpretation: ??Patient was monitored for 24 hours. ??The underlying rhythm was sinus with an average heart rate of 71 beats per minute (range 52-137 beats per minute). ??Rare APCs and PVCs were seen. ??There were 5 brief runs of SVT,the longest being for 16 beats with a heart rate of 96 beats per minute. ??There was no ventricular tachycardia, AV block, atrial fibrillation or pauses. ??The patient complained of lightheadedness and dizziness on 11/07/2022 at 2:21 p.m. at which time she was in sinus rhythm rate 95 beats per minute. ??Similar symptoms occurred at 5:56 p.m. and 9:51 p.m. associated with sinus rhythm in the 80s and 70s. Conclusions: 24 hour Holter monitor is remarkable for 5 brief runs of SVT the longest being for 16 beats. The patient's 3 symptoms were associated with sinus rhythm. Voice recognition software was used to complete this document, therefore, cooker operator variances may occur. Tricia Del Rio MD, [facility] 11/12/22 [facility] Cardiology Procedure Note Tricia Del Rio MD - 11/12/2022 AMBULATORY FIELD MARKETING REPRESENTATIVE REPORT Patient Name: Ramiro Enciso Date of : 1940 Requesting Provider: Aung Rick MD Referring provider: David Ramon MD Date of interpretation: 11/12/22 Type of monitor : 24 hour Holter Date of the study/Enrollment period: 11/07/2022 Indication: Syncope and collapse Quality of the study: Good Interpretation: Patient was monitored for 24 hours. The underlyingrhythm was sinus with an average heart rate of 71 beats per minute ([id number] beats per minute). Rare APCs and PVCs were seen. There were 5brief runs of SVT,the longest being for 16 beats with a heart rate of 96beats per minute. There was no ventricular tachycardia, AV block, atrialfibrillation or pauses. The patient complained of lightheadedness anddizziness on 11/07/2022 at 2:21 p.m. at which time she was in sinus rhythmrate 95 beats per minute. Similar symptoms occurred at 5:56 p.m. and 9:51p.m. associated with sinus rhythm in the 80s and 70s. Conclusions: 24 hour Holter monitor is remarkable for 5 brief runs of SVT the longestbeing for 16 beats. The patient's 3 symptoms were associated with sinus rhythm. Voice recognition software was used to complete this document, therefore,cooker operator variances may occur. Tricia Del Rio MD, [facility] 11/12/22 [facility] Cardiology Aung Rick MD [facility] PROC EDURES Final Result documented in this encounter Visit Diagnoses Diagnosis Near syncope documented in this encounter Care Teams Real Estate Attorney Relationship Specialty Start Date End Date David Ramon MD [address] [place] [id number] PCP - General Family Medicine 01/09/21 documented as of this encounter
--- OUTSIDE RECORDS SUMMARY | 2024-02-29 05:23 | XMS_ITS | Encounter Summary ---
Author Organization [facility] Address [address] [place] [address] Care Team Providers Care Telecommunications Line Installer Name Role Phone David Ramon MD Primary Care Provider [phone] Reason for Visit * Reason Comments Hospital Follow Up Syncope Encounter Details Date Type Department Care Team (Late st Contact Info) Description 05/13/2023 1:00 PM CDT Office Visit 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 (Primary Dx); History of coronary artery stent placement Social History Tobacco Use Types Packs/Day Years [...] on file documented as of this encounter Last Filed Vital Signs Vital Sign Reading Time Taken Comments Blood Pressure 132/74 05/13/2023 1:05 PM CDT Pulse 72 05/13/2023 1:05 PM CDT Temperature - - Respiratory Rate - - Oxygen Saturation 97% 05/13/2023 1:05 PM CDT Inhaled Oxygen Concentration - - Weight 64.9 kg (143 lb) 05/13/2023 1:05 PM CDT Height 177.8 cm (5' 10 ) 05/13/2023 1:05 PM CDT Body Mass Index 20.52 05/13/2023 1:05 PM CDT documented in this encounter Progress Notes * Aung Rick MD - 05/13/2023 1:00 PM CDT [facility] FOLLOW UP 05/13/2023 Ramiro Enciso is a 82 y.o. male who presents for follow up of chest pain. The patient had a history of several presentations to the hospital with atypical sounding chest pain with negative stress test being performed. Ultimately he did present with acute coronary syndrome in May of 2021 at which time catheterization was performed demonstrating a high-grade complex ostial stenosis of the right coronary artery. He underwent interventional revascularization of this with a favorable result. Hereceived a 5 x 32 mm Megatron stent to the target lesion He has not had any recurrence of exertional ischemic chest pain since then. He has had some emergency room visits with episodes of lightheadedn ess. No diagnosis was made at these times He presents today for scheduled six-month follow-up visit. The patient was doing well until 2 days before Rc when he had an abrupt syncopal episode at home. He says that he lost consciousness and collapsed after standing up out of a chair and fell to the ground and was brought to the hospital he sustained a hip fracture of the right femur. He underwent surgical repair of that and was discharged to rehab. He has never had a syncopal episode prior to that or since that event. He does not really report any ongoing symptoms of an orthostatic nature. He had no arrhythmias according to the records when he was in the hospital we were not consulted to see him when he was hospitalized. REVIEW OF SYSTEMS General ROS: negative for - chills, fatigue, fever, malaise, night sweats, weight gain or weight loss Psychological ROS: negative for - anxiety, depression, memory difficulties or sleep disturbances Ophthalmic ROS: negative for - blurry vision, decreased vision, loss of vision or scotomata ENT ROS: negative for - epistaxis, headaches, hearing change, nasal congestion, nasal discharge, sore throat, vertigo or visual changes Hematological and Lymphatic ROS: negative for - bleeding problems, blood clots, bruising, fatigue or weight loss Endocrine ROS: negative for - hot flashes, palpitations, polydipsia/polyuria or unexpected weight changes Respiratory ROS: negative for - cough, hemoptysis, orthopnea, shortness of breath, tachypnea or wheezing Cardiovascular ROS: negative for - chest pain, dyspnea on exertion, edema, irregular heartbeat, loss of consciousness, murmur, orthopnea, palpitations, paroxysmal nocturnal dyspnea, rapid heart rate or shortness of breath Gastrointestinal ROS: negative for - abdominal pain, appetite loss, blood in stools, constipation, diarrhea, gas/bloating, heartburn, hematemesis, melena or nausea/vomiting Genito-Urinary ROS: negative for - dysuria, erectile dysfunction or hematuria Musculoskeletal ROS: negative for - joint pain, muscle pain or muscular weakness Dermatological ROS: negative for dry skin, eczema, pruritus and rash HOME MEDICATIONS Current Outpatient Medications: acetaminophen (TYLENOL) 325 mg tablet, Take 2 tablets (650 mg total) by mouth 2 (two) times a day as needed for pain, Disp: , Rfl: ascorbic acid (VITAMIN C) 500 mg tablet,chewable, Take 1 tablet/chew tab (500 mg total) by mouth daily, Disp: , Rfl: aspirin 81 mg enteric coated tablet, Take 1 tablet (81 mg total) by mouth daily, Disp: , Rfl: atorvastatin (LIPITOR) 40 mg tablet, Take 1 tablet (40 mg total) by mouth nightly, Disp: , Rfl: clopidogreL (PLAVIX) 75 mg tablet, Take 1 tablet (75 mg total) by mouth daily, Disp: , Rfl: gemfibroziL (LOPID) 600 mg tablet, Take by mouth 2 (two) times a day, Disp: , Rfl: levETIRAcetam (KEPPRA) 1,000 mg tablet, Take by mouth 2 (two) times a day, Disp: , Rfl: metoprolol XL (TOPROL-XL) 50 mg extended release tablet, Take 1 tablet (50 mg total) by mouth daily, Disp: 90 tablet, Rfl: 3 nitroglycerin (NITROSTAT) 0.4 mg SL tablet, DISSOLVE ONE TABLET UNDER THE TONGUE EVERY 5 MINUTES ASNEEDED FOR CHEST PAIN. DO NOT EXCEED A TOTAL OF 3 DOSES IN 15 MINUTES, Disp: 25 tablet, Rfl: [address] (PROTONIX) 40 mg EC tablet, Take by mouth medical reimbursement specialist before breakfast, Disp: , Rfl: LABS AND OTHER DIAGNOSTIC TESTS No results found for: CHOL No results found for: HDL No results found for: LDLCALC No results found for: TRIG No results found for: CHOLHDL Lab Results Component Value Date WBC 8.1 07/14/2021 HGB 9.9 (L) 07/14/2021 HCT 30.8 (L) 07/14/2021 MCV 97.2 (H) 07/14/2021 No lab exists for component: LABALBU PHYSICAL EXAM Vitals BP 132/74 (BP Location: Left arm, Patient Position: Sitting) Pulse 72 Ht 177.8 cm (5' 10 ) Wt 64.9 kg (143 lb) SpO2 97% BMI 20.52 kg/m?? Physical Examination: General appearance - alert, pleasant elderly man, and in no distress, oriented to person, place, and time and acyanotic, in no respiratory distress Mental status - affect appropriate to mood Eyes - extraocular eye movements intact, sclera anicteric, no pallor Ears - external earsappear normal, hearing grossly normal bilaterally Nose - normal and patent, no erythema or discharge Mouth - mucous membranes moist, pharynx appears normal, dental hygiene good and tongue normal Neck - supple, no significant neck masses, carotids upstroke normal bilaterally, no bruits, no JVD Chest - clear to auscultation, no wheezes, rales or rhonchi, symmetric air entry, no tachypnea, retractions or cyanosis Heart - normal rate, regular rhythm, normal S1, S2, no murmurs, rubs, clicks or gallops, no JVD Abdomen - soft, nontender, nondistended, no masses or organomegaly bowel sounds normal Neurological - alert, oriented, normal speech, no focal findings or movement disorder noted Musculoskeletal - no joint tenderness, deformity or swelling, no muscular tenderness noted Extremities - peripheral pulses normal, no pedal edema, no clubbing or cyanosis Skin - normal coloration and turgor, no rashes, no suspicious skin lesions noted ASSESSMENT Ramiro was seen today for hospital follow up and syncope. 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 Consider another Holter or possibly a loop recorder if he has recurrent syncopal events. 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
--- OUTSIDE RECORDS SUMMARY | 2024-02-29 05:23 | XMS_ITS | Encounter Summary ---
Author Organization [facility] Address [address] [address] Care Team Providers Care Hot Plate Plywood Press Laborer Name Role Phone David Ramon MD Primary Care Provider [phone] Reason for Referral * Diagnostic Imaging (Routine) - Closed Specialty Diagnoses / Procedures Referred By Xochitl hodge Referred To Contact Diagnoses Aftercare following surgery of the circulatory system, NEC Procedures US Duplex Scan of Aorta; Inferior Vena Cava, Iliac, Complete Rosalva Simmons MD [address] [place] [address] [place] [address] Phone: tel: fax: [facility] Medical Office Building [address] [place] [phone] Referral ID Status Reason Start Date Expiration Date Visits Re quested Visits Authorized [id number] Closed 03/06/2021 04/05/2022 1 1 IOLOGIST Reason for Visit * Reason Comments Follow-up 1m superior mesenter ic artery stenosis, mensenteric artery possible intervention 01/16/2021 * Consultation (Routine) - Closed Specialty Diagnoses / Procedures Referred By Xochitl hodge Referred To Contact Vascular Surgery Diagnoses Superior mesenteric artery stenosis (CMS/HCC) (HCC) David Ramon MD [address] [place] [address] Phone: tel: fax: Rosalva Simmons MD [address] [place] [address] [place] [address] Phone: tel: fax: Referral ID Status Reason Start Date Expiration Date V isits Requested Visits Authorized [id number] Closed Specialty Services Required 03/05/2021 04/04/2022 1 1 Encounter Details Date Type Department Care Team (Late st Contact Info) Description 03/06/2021 1:00 PM CARDIOLOGIST Office Visit [facility] Vascular and Vein Surgery [address] [facility] [address] [place] [address] Rosalva Simmons MD [address] 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 (CMS/HCC) (HCC) Social History Tobacco Use Types Packs/Day Years [...] Sign Reading Time Taken Comments Blood Pressure 127/70 03/06/2021 12:52 PM CARDIOLOGIST Pulse 64 03/06/2021 12:52 PM CARDIOLOGIST Temperature - - Respiratory Rate - - Oxygen Saturation - - Inhaled Oxygen Concentration - - Weight 72.1 kg (159 lb) 03/06/2021 12:52 PM CARDIOLOGIST Height 177.8 cm (5' 10 ) 03/06/2021 12:52 PM CARDIOLOGIST Body Mass Index 22.81 03/06/2021 12:52 PM CARDIOLOGIST documented in this encounter Patient Instructions * Patient Instructions* Rosalva Simmons MD - 03/06/2021 1:00 PM CARDIOLOGIST Follow-up in 3 months with a mesenteric artery duplex. IOLOGIST documented in this encounter Progress Notes * Rosalva Simmons MD - 03/06/2021 1:00 PM CST Patient ID: Ramiro Enciso is a 80 y.o. male Visit Date: 03/06/2021 Chief Complaint Chief Complaint Patient presents with ??? Follow-up 1m superior mesenteric artery stenosis, mensenteric artery possible intervention 01/16/2021 HPI Patient is an 80-year-old male with past medical history significant for CAD status post stent placement, hypertension and tobacco abuse who was found to have an SMA stenosis and underwent mesentericartery angiogram with stent placement. He is here today for follow-up. He says that he is feeling si gnificantly better as far as the abdominal pain is concerned. He said he is able to eat without anypain. He said he has not had any more weight loss. He said that the only issue he has had recently is having chest pain from time to time. He said that he thinks that is because he has been under stress slightly with having to move and the fact that he lost 2 friends recently. But he said that he will intermittently get chest pain and has not gone to see his physician or park police. ROS Constitutional: No change in appetite. No recent weight loss. No fevers chills or sweats. HEENT: No trouble swallowing. No tinnitus. Eyes: No visual disturbances Respiratory: No shortness of breath. No cough or sputum production. No wheezing. Cardiovascular: + chest pain intermittently. No palpitations. Gastrointestinal: No abdominal pain. No nausea vomiting or diarrhea. Genitourinary: No dysuria. No hematuria. Extremities: No claudication. No rest pain. No lower extremity ulcerations or infections. No significant edema. Musculoskeletal: No joint pains. No back pain. Neurologic: No dizziness. No syncope. No weakness. Skin: No rashes. No discoloration. Hematologic: no bleeding Psychiatric: no anxiety, no behavioral changes, no mood swings PE Constitutional: Alert and oriented HEENT: Head atraumatic and normocephalic Neck is supple No carotid bruits Extraocular movements full, sclerae anicteric Chest: Effort normal. Breath sounds normal. Cardiovascular: S1 and S2 are normal. No murmurs rubs or gallops appreciated. Abdominal: Soft, nontender, no masses. Extremities: Palpable femoral, popliteal, dorsalis pedis and posterior tibial pulses bilaterally. No significant edema. No ulcerations. Musculoskeletal: Normal range of motion. Neurologic: Cranial nerves 2-12 intact. Strength and sensation intact bilaterally. Skin: Warm and dry. No rashes. No discoloration. Psychiatric: Normal mood and affect. Behavior normal. Judgment normal. IMAGING STUDIES Mesenteric artery duplex reviewed and interpreted by me. Patient has a patent stent with no significantly elevated velocities within the stent. ASSESSMENT AND PLAN Diagnoses and all orders for this visit: Superior mesenteric artery stenosis (CMS/HCC) ([facility]) (Primary) Assessment & Plan: Patient has superior mesenteric artery stenosis status post stent placement. He has done well sincethat time and is able to tolerate food without any abdominal pain and no more weight loss. I will have him follow up in 3 months with a repeat mesenteric artery duplex. Orders: - Ambulatory referral to Vascular Surgery Aftercare following surgery of the circulatory system, NEC - US Duplex Scan of Aorta; Inferior Vena Cava, Iliac, Complete; Future Tobacco abuse Assessment & Plan: Patient is currently continuing to smoke but says he is cutting back. More than 3 minutes was spentdiscussing with him about the over hot benefits of smoking cessation. I discussed with him that there are things that can help him quit smoking. I told him that this stent will shut down if he continues to smoke. He says that he does understand and is going to continue cutting back to quit. Primary hypertension Assessment & Plan: Followed by his PCP and chronic and stable. I recommend he continue his Norvasc and metoprolol. Good blood pressure control will also help with patency of his stent. He also is going to see his primary care doctor next week and will likely need to see his park police given his chest pain. Mixed hyperlipidemia Assessment & Plan: Followed by his PCP chronic and stable. I recommend that he continues to take his Lipitor as cholesterol lowering medication will help keep the stent patent. 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 He had done well and that time but says recently he has been having chest pains. He is not sure that they are related to his heart but he said that he will get stress in his start having chest pain and when he is more relaxed will go away. He is going to see his primary doctor next week and I told him that he needs to make an appointment with his park police as well. Rosalva Simmons MD IOLOGIST documented in this encounter Miscellaneous Notes * Assessment & Plan Note - Rosalva Simmons MD - 03/07/2021 1:57 PM CARDIOLOGIST Associated Problem(s): Coronary artery disease involving hoh coronary artery of hoh heart Patient underwent cardiac stenting previously. He had done well and that time but says recently he has been having chest pains. He is not sure that they are related to his heart but he said that he will get stress in his start having chest pain and when he is more relaxed will go away. He is going to see his primary doctor next week and I told him that he needs to make an appointment with his park police as well. IOLOGIST * Assessment & Plan Note - Rosalva Simmons MD - 03/07/2021 1:57 PM CARDIOLOGIST Associated Problem(s): Superior mesenteric artery stenosis (CMS/HCC) (HCC) Patient has superior mesenteric artery stenosis status post stent placement. He has done well sincethat time and is able to tolerate food without any abdominal pain and no more weight loss. I will have him follow up in 3 months with a repeat mesenteric artery duplex. IOLOGIST * Assessment & Plan Note - Rosalva Simmons MD - 03/07/2021 1:56 PM CARDIOLOGIST Associated Problem(s): Tobacco abuse Patient is currently continuing to smoke but says he is cutting back. More than 3 minutes was spentdiscussing with him about the over hot benefits of smoking cessation. I discussed with him that there are things that can help him quit smoking. I told him that this stent will shut down if he continues to smoke. He says that he does understand and is going to continue cutting back to quit. IOLOGIST * Assessment & Plan Note - Rosalva Simmons MD - 03/07/2021 1:56 PM CARDIOLOGIST Associated Problem(s): Primary hypertension Followed by his PCP and chronic and stable. I recommend he continue his Norvasc and metoprolol. Good blood pressure control will also help with patency of his stent. He also is going to see his primary care doctor next week and will likely need to see his park police given his chest pain. IOLOGIST * Assessment & Plan Note - Rosalva Simmons MD - 03/07/2021 1:56 PM CARDIOLOGIST Associated Problem(s): Mixed hyperlipidemia Followed by his PCP chronic and stable. I recommend that he continues to take his Lipitor as cholesterol lowering medication will help keep the stent patent. IOLOGIST documented in this encounter Plan of Treatment Not on file documented as of this encounter Results * US Duplex Scan of Aorta; Inferior Vena Cava, Iliac, Complete (06/05/2021 9:30 AM CDT) Anatomical Region Laterality Modality Vascular Ultrasound 06/05/2021 Narrative 06/07/2021 11:32 AM CDT Arc[employer] Job ID: [id number] [employer] Document ID: [id number] Dictated date/time: [id number] MESENTERIC ARTERY DUPLEX. PROCEDURE DATE 06/05/2021. REASON FOR EXAM Status post SMA stent. FINDINGS Aortic velocity is 71. ??SMA origin velocity is 202/48, proximal SMA 417/91, mid SMA 151/34. ??The celiac access velocity is 216/51 and hepatic artery 173/29 and splenic artery 222/47. 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
--- OUTSIDE RECORDS SUMMARY | 2024-02-29 05:23 | XMS_ITS | Encounter Summary ---
Author Organization [facility] Address [address] [facility] [address] [place] [address] Care Team Providers Care Data Security Administrator Name Role Phone David Ramon MD Primary Care Provider [phone] Encounter Details Date Type Department Care Team (Late st Contact Info) Description 07/02/2021 Orders Only [facility] Cardiology [address] [place] [address] [address] [place] [address] Aung Rick MD [address] [facility] [address] [place] [address] Social History Tobacco Use Types [...] Associated Diagnosis Comments CARDIOLOGY DOCUMENT SCAN Routine 07/02/2021 documented in this encounter Results * Cardiology Document Scan (07/02/2021) Anatomical Region Laterality Modality Other Bronwyn Claros NP CV CARDIAC SERVICES PROCEDUR ES Final Result documented in this encounter Visit Diagnoses Not on filedocumented in this encounter Care Teams Data Security Administrator Relationship Specialty Start Date End Date David Ramon MD [address] [place] [address] PCP - General Family Medicine 01/09/21 documented as of this encounter
--- OUTSIDE RECORDS SUMMARY | 2024-02-29 05:23 | XMS_ITS | Encounter Summary ---
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, unspecified whether angina present Social History Tobacco Use Types Packs/Day Years [...] Procedure Name Priority Date/Time Associated Diagnosis Comments EGFR Routine 07/09/2021 11:26 AM CDT 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, unspecified whether angina present DIFFERENTIAL AUTO Routine 07/09/2021 11: 26 AM CDT 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, unspecified whether angina present CBC WITH AUTO DIFFERENTIAL Routine 07/09/2021 11:26 AM CDT 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 73 m2 STEPHEN STEEN Comment: Interpretive Data Reference Interval Normal ?>/= 90 mL/min/1.73m2 Mildly decreased* ? 60 - 89 mL/min/1.73m2 Mildly to moderately decreased ?45 - 59 mL/min/1.73m2 Moderately to severely decreased ??30 - 44 mL/min/1.73m2 Severely decreased ?15 - 29 mL/min/1.73m2 Kidney Failure ?< 15 ??mL/min/1.73m2 *Relative to young adult level Estimated glomerular filtration rate is determined by the 2020 CKD-EPI equation recommended by the National Kidney Foundation (A Unifying Approach to GFR Estimation: Recommendations of the NKF-ASK Task Force on Reassessing the Inclusion of Race in Diagnosing Kidney Disease, JASN 202). The CKD-EPI equation should not be used for patients with unstable renal function and has not been validated in children and those over 70. Current interpretive data was last reviewed 2020. Blood 07/09/2021 11:2 6 AM CDT 07/09/2021 12:16 PM CDT us Hamlet Marte MD LAB BLOOD ORDERABLES Final Resul t [facility] [address] [facility] Department [place] [address] * Differential, auto (07/09/2021 11:26 AM CDT) Neutrophil abs 5.0 1.7 - 6.5 K/cumm [facility] Imm gran abs 0.1 0.0 - 0.1 K/cumm [facility] Lymphocyte abs 0.9 0.8 - 3.3 K/cumm [facility] Monocyte abs 0.7 0.2 - 0.8 K/cumm [facility] Eosinophil abs 0.2 0.0 - 0.5 K/cumm [facility] Basophil abs 0.1 0.0 - 0.1 K/cumm [facility] Neutrophil pct 73.4 % [facility] Comment: Interpretive Data Percent cell count reference ranges are not reported, since discordance with absolute values may lead to misinterpretation of CBC data. Current Interpretive Data was last revised on 2017. Imm gran pct 1.0 % [facility] Comment: Interpretive Data Percent cell count reference ranges are not reported, since discordance with absolute values may lead to misinterpretation of CBC data. Current Interpretive Data was last revised on 2017. Lymphocyte pct 12.7 % [facility] Comment: Interpretive Data Percent cell count reference ranges are not reported, since discordance with absolute values may lead to misinterpretation of CBC data. Current Interpretive Data was last revised on 2017. Monocyte pct 9.5 % [facility] Comment: Interpretive Data Percent cell count reference ranges are not reported, since discordance with absolute values may lead to misinterpretation of CBC data. Current Interpretive Data was last revised on 2017. Eosinophil pct 2.2 % [facility] Comment: Interpretive Data Percent cell count reference ranges are not reported, since discordance with absolute values may lead to misinterpretation of CBC data. Current Interpretive Data was last revised on 2017. Basophil pct 1.2 % [facility] Comment: Interpretive Data Percent cell count reference ranges are not reported, since discordance with absolute values may lead to misinterpretation of CBC data. Current Interpretive Data was last revised on 2017. Blood 07/09/2021 11:2 6 AM CDT 07/09/2021 11:47 AM CDT us Hamlet Marte MD LAB BLOOD ORDERABLES Final Resul t [facility] Department [place] [address] * (ABNORMAL) Basic metabolic panel (07/09/2021 11:26 AM CDT) Pathologist [facility] Sodium 134(L) 135 - 145 mmol/L [facility] Potassium, pl 4.9 3.3 - 4.9 mmol/L [facility] Chloride 100 97 - 110 mmol/L [facility] CO2 24 22 - 32 mmol/L [facility] Anion gap 10 2 - 15 mmol/L [facility] BUN 10 8 - 25 mg/dL [facility] Creatinine 0.80 0.80 - 1.30 mg/dL [facility] Glucose 106 70 - 199 mg/dL [facility] Comment: Interpretive Data Fasting glucose >/= 126 mg/dl is diagnostic for diabetes. ?? Fasting is defined as no caloric intake for at least 8 hours. Fasting glucose between 100 mg/dl to 125 mg/dl is diagnostic of prediabetes. In a patient with classic symptoms of hyperglycemia or hyperglycemic crisis, a random glucose >/= 200 mg/dl is diagnostic for diabetes. In the absence of unequivocal hyperglycemia, results should be confirmed by repeat testing. The classification and Diagnosis of Diabetes Diabetes Care 2017;40 (Suppl. 1):S11. Current interpretive data was last revised 2017. Calcium 9.8 8.5 - 10.3 mg/dL [facility] Blood 07/09/2021 11:2 6 AM CDT 07/09/2021 11:47 AM CDT us Hamlet Marte MD LAB BLOOD ORDERABLES Final Resul t Performing Organization Address City/[facility]/ZIP Co de Phone Number [place] [id number] [facility] Department [place] [address] * (ABNORMAL) CBC with auto differential (07/09/2021 11:26 AM CDT) Pathologist [facility] WBC 6.8 3.8 - 9.9 K/cumm [facility] Hgb 11.4(L) 13.0 - 17.5 g/dL [facility] Hct 34.3(L) 38.9 - 50.3 % [facility] Plt 296 150 - 400 K/cumm [facility] MPV 8.5(L) 9.1 - 12.3 fL [facility] RBC 3.64(L) 4.30 - 5.80 M/cumm [facility] MCV 94.2 81.3 - 96.4 fL [facility] MCH 31.3 27.1 - 33.3 pg [facility] MCHC 33.2 32.3 - 35.7 g/dL [facility] RDW CV 13.7 11.1 - 14.9 % [facility] RDW SD 47.0 35.7 - 48.1 fL [facility] NRBC abs 0.00 0.00 - 0.01 K/cumm [facility] Blood 07/09/2021 11:2 6 AM CDT 07/09/2021 11:47 AM CDT us Hamlet Marte MD LAB BLOOD ORDERABLES Final Resul t [facility] [address] [facility] Department [place] [address] * Protime-INR (07/09/2021 11:26 AM CDT) Pathologist [facility] PT 13.0 12.0 - 14.6 sec [facility] INR 1.0 0.9 - 1.2 [facility] Comment: Ref Range High Interpretive data Oral anticoagulant therapeutic ranges: Venous thromboembolism prophylaxis or treatment: 2.0-3.0 CARDIOLOGY Standard range: 2.0-3.0 High-intensity range: 2.5-3.5 Refer to indication-specific guidelines for appropriate target ranges for prosthetic heart valve replacement. Current interpretive data was last revised on 2019. 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
--- OUTSIDE RECORDS SUMMARY | 2024-02-29 05:23 | XMS_ITS | Encounter Summary ---
Author Organization [facility] Healthcare Address [address] [place] [address] Care Team Providers Care Oracle Fusion Middleware Developer Name Role Phone David Ramon MD Primary Care Provider [phone] Encounter Details Date Type Department Care Team (Late st Contact Info) Description 11/18/2023 Documentation [facility] Cardiology [address] [facility] [address] [address] Aung Rick MD [address] [facility] [address] [place] [address] Social History Tobacco Use Types [...] as of this encounter Progress Notes * Aung Rick MD - 11/18/2023 5:19 PM CDT AMBULATORY SALES FINANCIAL ANALYST REPORT Patient Name: Ramiro Enciso Date of : 1940 Requesting Physician: Merline Date of interpretation: 11/18/23 Type of monitor : 24 hour Holter monitor Date of the study/Enrollment period: 11/11/2023 Indication: Palpitations/syncope Quality of the study: Adequate Interpretation: The basic rhythm appears to be sinus with normal WI QRS and QT interval. The heart rate varies from a minimum of 44 to a maximum of 161 with an average rate of 60. The examination demonstrates no examples of abrupt pauses or abnormalities of AV conduction. Supraventricular ectopic activity was infrequent consisting of PACs occurring throughout the tracing. There were no supraventricular runs and there were no examples of atrial fibrillation. Ventricular ectopic activity was also infrequent consisting of PVCs with a total PVC burden of 0.1%. There however was 1 4 beat run of ventricular tachycardia noted at 9:51 p.m.. According to the patient diary this was asymptomatic No symptoms were recorded during the diary Conclusions: Sinus rhythm with normal heart rate variability with low-frequency atrial and ventricular ectopic activity however this did include 1 4 beat run of ventricular tachycardia as detailed above Voice recognition software was used to complete this document, therefore, lucerne farmer variances may occur. Aung Rick MD [facility] 11/18/23 documented in this encounter Plan of Treatment Not on file documented as of this encounter Visit Diagnoses Not on filedocumented in this encounter Care Teams Oracle Fusion Middleware Developer Relationship Specialty Start Date End Date David Ramon MD [address] [place] [id number] PCP - General Family Medicine 01/09/21 documented as of this encounter
--- OUTSIDE RECORDS SUMMARY | 2024-02-29 05:23 | XMS_ITS | Encounter Summary ---
Author Organization [facility] Address [address] [facility] [address] [place] [address] Care Team Providers Care Manager Requirements Name Role Phone David Ramon MD Primary Care Provider [phone] Reason for Referral * Cardiology (Routine) - Closed Specialty Diagnoses / Procedures Referred By Contac t Referred To Contact Diagnoses Near syncope Procedures 24 HR Holter Monitor DC EXTERNAL ECG SCANNING ANALYSIS REPORT DC XTRNL ECG & 48 HR RECORDING Aung Rick MD [address] [address] Phone: tel: fax: [facility] Referral ID Status Reason Start Date Expiration Date Visits Re quested Visits Authorized [id number] Closed 11/07/2022 12/07/2023 1 1 Reason for Visit * Reason Comments Coronary Artery Disease 6 month follow u p. Encounter Details Date Type Department Care Team (Late st Contact Info) Description 11/07/2022 11:00 AM CDT Office Visit 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 (Primary Dx); History of coronary artery stent placement; Near syncope Social History Tobacco Use Types [...] Sign Reading Time Taken Comments Blood Pressure 130/80 11/07/2022 10:39 AM CDT Pulse 78 11/07/2022 10:39 AM CDT Temperature - - Respiratory Rate - - Oxygen Saturation 96% 11/07/2022 10:39 AM CDT Inhaled Oxygen Concentration - - Weight 68.9 kg (152 lb) 11/07/2022 10:39 AM CDT Height 177.8 cm (5' 10 ) 11/07/2022 10:39 AM CDT Body Mass Index 21.81 11/07/2022 10:39 AM CDT documented in this encounter Progress Notes * Aung Rick MD - 11/07/2022 11:00 AM CDT [facility] FOLLOW UP 11/07/2022 Ramiro Enciso is a 82 y.o. male who presents for follow up of chest pain. This is a patient who has not been found to have coronary artery disease previously. I saw him a couple of times in the hospital at [facility] in August of 2020 and again in November of 2020. In August his symptoms of chest pain were felt to be atypical. There was no evidence of ACS and no further evaluation was carried out. An echocardiogram was unremarkable. When he presented again with symptoms in November a Lexiscan nuclearstress test was done which was also negative. 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 He was referred to a vascular surgeon in [place] who performed a stent procedure on that with improvement in those symptoms. 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 He underwent interventional revascularization of this at [facility]. He returns to the office today for a scheduled six-month appointment. Generally speaking he is doing very well. He does have some momentary episodes of chest pain but nothing that is reminiscent of his previous myocardial ischemia. He did state that he has been back in the ER again a couple of times with episodes of abrupt weakness lightheadedness. He has not had a syncopal episode. He is having these episodes about 3 or 4 times per day. REVIEW OF SYSTEMS General ROS: negative for [...] and rash HOME MEDICATIONS Current Outpatient Medications: ??? acetaminophen (TYLENOL) 325 mg tablet, Take 2 tablets (650 mg total) by mouth 2 (two) times a day as needed for pain, Disp: , Rfl: ??? ascorbic acid (VITAMIN C) 500 mg tablet,chewable, Take 1 tablet/chew tab (500 mg total) by mouth daily, Disp: , Rfl: ??? aspirin 81 mg enteric coated tablet, Take 1 tablet (81 mg total) by mouth daily, Disp: , Rfl: ??? atorvastatin (LIPITOR) 40 mg tablet, Take 1 tablet (40 mg total) by mouth nightly, Disp: , Rfl: ??? clopidogreL (PLAVIX) 75 mg tablet, Take 1 tablet (75 mg total) by mouth daily, Disp: , Rfl: ??? gemfibroziL (LOPID) 600 mg tablet, Take by mouth 2 (two) times a day, Disp: , Rfl: ??? levETIRAcetam (KEPPRA) 1,000 mg tablet, Take by mouth 2 (two) times a day, Disp: , Rfl: ??? metoprolol XL (TOPROL-XL) 50 mg extended release tablet, Take 1 tablet (50 mg total) by mouth daily, Disp: 90 tablet, Rfl: 3 ??? nitroglycerin (NITROSTAT) 0.4 mg SL tablet, DISSOLVE ONE TABLET UNDER THE TONGUE EVERY 5 MINUTES NEEDED FOR CHEST PAIN. DO NOT EXCEED A TOTAL OF 3 DOSES IN 15 MINUTES, Disp: 25 tablet, Rfl: 0 ??? pantoprazole DR (PROTONIX) 40 mg EC tablet, Take by mouth visual specialist before breakfast, Disp:, Rfl: LABS AND OTHER DIAGNOSTIC TESTS No results found for: CHOL No results found for: HDL No results found for: LDLCALC No results found for: TRIG No results found for: CHOLHDL Lab Results Component Value Date WBC 8.1 07/14/2021 HGB 9.9 (L) 07/14/2021 HCT 30.8 (L) 07/14/2021 MCV 97.2 (H) 07/14/2021 No lab exists for component: LABALBU PHYSICAL EXAM Vitals BP 130/80 (BP Location: Right arm, Patient Position: Sitting) Pulse 78 Ht 177.8 cm (5' 10 ) Wt 68.9 kg (152 lb) SpO2 96% BMI 21.81 kg/m?? Physical Examination: General appearance - alert, [...] noted ASSESSMENT Ramiro was seen today for coronary artery disease. 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 Aung Rick MD documented in this encounter Plan of Treatment Not on file documented as of this encounter Results * 24 HR Holter Monitor (11/07/2022 12:21 PM CDT) Anatomical Region Laterality Modality Other Narrative 11/12/2022 7:38 PM CDT AMBULATORY [employer] RADIO TECHNICIAN REPORT Patient Name: Ramiro Enciso Date of [...] was used to complete this document, therefore, head of it variances may occur. Tricia Del Rio MD, [facility] 11/12/22 [facility] Cardiology Procedure Note Tricia Del Rio MD - 11/12/2022 AMBULATORY [employer] RADIO TECHNICIAN REPORT Patient Name: Ramiro Enciso Date of [...] heart rate of 71 beats per minute ([id number] beats per minute). Rare APCs and PVCs [...] software was used to complete this document, therefore,head of it variances may occur. Tricia Del Rio MD, [facility] 11/12/22 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
--- OUTSIDE RECORDS SUMMARY | 2024-02-29 05:23 | XMS_ITS | Encounter Summary ---
Author Organization [facility] Address [address] [facility] [address] [place] [address] Care Team Providers Care Chain Maker Name Role Phone David Ramon MD Primary Care Provider [phone] Encounter Details Date Type Department Care Team (Late st Contact Info) Description 06/30/2021 Orders Only [facility] Cardiology [address] [facility] [address] [place] [address] Zaheer Mcallister MD [address] [address] Social History Tobacco Use Types Packs/Day Years [...] Associated Diagnosis Comments CARDIOLOGY DOCUMENT SCAN Routine 06/30/2021 documented in this encounter Results * Cardiology Document Scan (06/30/2021) Anatomical Region Laterality Modality Other Zaheer Mcallister MD [facility] Final Result documented in this encounter Visit Diagnoses Not on filedocumented in this encounter Care Teams Chain Maker Relationship Specialty Start Date End Date David Ramon MD [address] [place] [address] PCP - General Family Medicine 01/09/21 documented as of this encounter
--- OUTSIDE RECORDS SUMMARY | 2024-02-29 05:23 | XMS_ITS | Encounter Summary ---
Author Organization [facility] Address [address] [place] [address] Care Team Providers Care Motion And Time Study Teacher Name Role Phone David Ramon MD Primary Care Provider [phone] Encounter Details Date Type Department Care Team (Late st Contact Info) Description 09/03/2021 Telephone [facility] Case Management [address] [place] [address] Lupis Lawler RT Social History Tobacco Use Types Packs/Day Years [...] encounter Miscellaneous Notes * Telephone Encounter - Lupis Lawler EP-C - 09/03/2021 11:24 AM CDT Initial Follow-up Call Questions- spoke with ? Pt reports taking all medication as prescribed. Pt denies any current questions about medications. ? Discussed the importance of following a heart healthy diet; low salt, low fat ?? Cardiac Rehab Facility: Pt attends [facility] three days per week at [facility]. Pt denies difficulty with exercise Explained the importance of trying to gradually, and safely improve exercise tolerance. Educated pton the [place] [employer] recommendation of working towards 150+ minutes/week of light to moderate-intensity aerobic exercise, or 75+ minutes of vigorous-intensity aerobic exercise to help improve cardiovascular function as well as quality of life. Discussed signs.symptoms of over exertion and when to seek medical attention Discussed no strenuous exercise outside if temperature is below 35 or above 85 degrees. ?? Accounts Specialist Follow-up Appointment: Pt sees Dr. Rick on 10/25 ?? Readmission: Pt reports they have not been readmitted to the hospital since being discharged from [facility]. documented in this encounter Plan of Treatment Not on file documented as of this encounter Visit Diagnoses Not on filedocumented in this encounter Care Teams Motion And Time Study Teacher Relationship Specialty Start Date End Date David Ramon MD [address] [place] [id number] PCP - General Family Medicine 01/09/21 documented as of this encounter
--- OUTSIDE RECORDS SUMMARY | 2024-02-29 05:23 | XMS_ITS | Encounter Summary ---
Author Organization [facility] Address [address] [facility] [address] [place] [address] Care Team Providers Care Credit Administration Specialist Name Role Phone David Ramon MD Primary Care Provider [phone] Reason for Referral * Diagnostic Imaging (Routine) - Closed Specialty Diagnoses / Procedures Referred By Contac t Referred To Contact Diagnoses Aftercare following surgery of the circulatory system, NEC Procedures US Duplex Scan of Aorta; Inferior Vena Cava, Iliac, Complete Rosalva Simmons MD [address] [place] [address] [address] [place] [address] Phone: tel: fax: [facility] [address] [place] [phone] Referral ID Status Reason Start Date Expiration Date Visits Re quested Visits Authorized [id number] Closed 01/30/2021 03/01/2022 1 1 LE SOLUTION MAKER Reason for Visit * Reason Comments post op mesenteric artery an keya, possible intervention- 01/16/21 Encounter Details Date Type Department Care Team (Late st Contact Info) Description 01/30/2021 2:30 PM PICKLE SOLUTION MAKER Office Visit [facility] Vascular and Vein Surgery [address] [facility] [address] [place] [phone] Rosalva Simmons MD [address] [place] [address] [address] [place] [phone] 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); Aftercare following surgery of the circulatory system, NEC; Primary hypertension; Tobacco abuse; Mixed hyperlipidemia Social History Tobacco Use Types Packs/Day Years [...] Sign Reading Time Taken Comments Blood Pressure 136/78 01/30/2021 1:52 PM PICKLE SOLUTION MAKER Pulse 77 01/30/2021 1:52 PM PICKLE SOLUTION MAKER Temperature - - Respiratory Rate - - Oxygen Saturation - - Inhaled Oxygen Concentration - - Weight 72.1 kg (159 lb) 01/30/2021 1:52 PM PICKLE SOLUTION MAKER Height 177.8 cm (5' 10 ) 01/30/2021 1:52 PM PICKLE SOLUTION MAKER Body Mass Index 22.81 01/30/2021 1:52 PM PICKLE SOLUTION MAKER documented in this encounter Patient Instructions * Patient Instructions* Rosalva Simmons MD - 01/30/2021 2:30 PM PICKLE SOLUTION MAKER Follow-up in 1 month with ultrasound. LE SOLUTION MAKER documented in this encounter Progress Notes * Rosalva Simmons MD - 01/30/2021 2:30 PM CST Patient ID: Ramiro Enciso is a 80 y.o. male Visit Date: 01/30/2021 Chief Complaint Chief Complaint Patient presents with ??? post op mesenteric artery angio, possible intervention- 01/16/21 HPI Patient is an 80-year-old male with a past medical history significant for CAD status post stent placement, hypertension and tobacco abuse who had previously presented with complaints of abdominal pain after eating and a significant weight loss. 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 Since that time he says he is done well and he has not had any abdominal pain after eating. He says that he is now able to eat all the things he would like to without any pain at all. He said he has had no pain since his procedure and no groin pain or bruising. He has no other complaints at this time. He is taking his Plavix. He said that he is trying hard to quit his tobacco use. ROS Constitutional: No change in appetite. No recent weight loss. No fevers chills or sweats. HEENT: No trouble swallowing. No tinnitus. Eyes: No visual disturbances Respiratory: No shortness of breath. No cough or sputum production. No wheezing. Cardiovascular: No chest pain. No palpitations. Gastrointestinal: No abdominal pain. No [...] mood and affect. Behavior normal. Judgment normal. ASSESSMENT AND PLAN Diagnoses and all orders for this visit: Superior mesenteric artery stenosis (CMS/HCC) ([facility]) (Primary) Assessment & Plan: Patient had SMA stenosis and underwent stent placement. He has done well since the placement of thestent as he is no longer having any pain and able to eat what he would like to eat. I will have himfollow up in 1 month with a mesenteric artery duplex for stent surveillance. Aftercare following surgery of the circulatory system, NEC - US Duplex Scan of Aorta; Inferior Vena Cava, Iliac, Complete; Future Primary hypertension Assessment & Plan: Chronic and stable and followed by his PCP. Patient will continue his Norvasc and metoprolol. Againgood blood pressure control will help with the patency of his stent. Tobacco abuse Assessment & Plan: Patient is continuing to use tobacco and currently using loose tobacco. He says that he is cutting back and trying to cut back to quit. Again more than 3 minutes was spent discussing with him about the effects of tobacco on his overall cardiovascular health. He says that he is cutting back and trying to quit. He knows that quitting smoking will help with the patency of the stent as I have told him this repeatedly and once again did tell him that if he continues to use tobacco that the stent will go down and could cause him to be in the hospital, significant bowel damage or resection or even . Mixed hyperlipidemia Assessment & Plan: Chronic and stable. Patient was encouraged to make sure he continues his Lipitor as keeping on his cholesterol medication will help with the patency of his stent. I discussed with him that if he continues to smoke, have elevated blood pressure that is uncontrolled or elevated cholesterol that is uncontrolled than this stent can occlude. He understands. Rosalva Simmons MD LE SOLUTION MAKER documented in this encounter Miscellaneous Notes * Assessment & Plan Note - Rosalva Simmons MD - 02/01/2021 11:31 AM PICKLE SOLUTION MAKER Associated Problem(s): Superior mesenteric artery stenosis (CMS/HCC) (HCC) Patient had SMA stenosis and underwent stent placement. He has done well since the placement of thestent as he is no longer having any pain and able to eat what he would like to eat. I will have himfollow up in 1 month with a mesenteric artery duplex for stent surveillance. LE SOLUTION MAKER * Assessment & Plan Note - Rosalva Simmons MD - 02/01/2021 11:29 AM PICKLE SOLUTION MAKER Associated Problem(s): Tobacco abuse Patient is continuing to use tobacco and currently using loose tobacco. He says that he is cutting back and trying to cut back to quit. Again more than 3 minutes was spent discussing with him about the effects of tobacco on his overall cardiovascular health. He says that he is cutting back and trying to quit. He knows that quitting smoking will help with the patency of the stent as I have told him this repeatedly and once again did tell him that if he continues to use tobacco that the stent will go down and could cause him to be in the hospital, significant bowel damage or resection or even . LE SOLUTION MAKER * Assessment & Plan Note - Rosalva Simmons MD - 02/01/2021 11:29 AM PICKLE SOLUTION MAKER Associated Problem(s): Primary hypertension Chronic and stable and followed by his PCP. Patient will continue his Norvasc and metoprolol. Againgood blood pressure control will help with the patency of his stent. LE SOLUTION MAKER * Assessment & Plan Note - Rosalva Simmons MD - 02/01/2021 11:28 AM PICKLE SOLUTION MAKER Associated Problem(s): Mixed hyperlipidemia Chronic and stable. Patient was encouraged to make sure he continues his Lipitor as keeping on his cholesterol medication will help with the patency of his stent. I discussed with him that if he continues to smoke, have elevated blood pressure that is uncontrolled or elevated cholesterol that is uncontrolled than this stent can occlude. He understands. LE SOLUTION MAKER documented in this encounter Plan of Treatment Not on file documented as of this encounter Results * US Duplex Scan of Aorta; Inferior Vena Cava, Iliac, Complete (03/02/2021 9:48 AM PICKLE SOLUTION MAKER) Anatomical Region Laterality Modality Vascular Ultrasound 03/02/2021 Narrative 03/05/2021 8:24 AM PICKLE SOLUTION MAKER [employer] Job ID: [id number] [employer] Document ID: [id number] Dictated date/time: [id number] MESENTERIC ARTERY DUPLEX EXAM REASON FOR EXAM [...] a stent there. JOB ID/VF JOB ID: ??[id number] Rosalva Simmons MD [facility] PROCEDURES Final Result documented in this encounter Visit Diagnoses Diagnosis Superior mesenteric artery stenosis (CMS/HCC) (HCC)- Primary Stricture of artery Aftercare following surgery of the circulatory system, NEC Primary hypertension Unspecified essential hypertension Tobacco abuse Tobacco use disorder Mixed hyperlipidemia Aftercare following surgery of the circulatory system, NEC documented in this encounter Care Teams Credit Administration Specialist Relationship Specialty Start Date End Date David Ramon MD [address] [place] [id number] PCP - General Family Medicine 01/09/21 documented as of this encounter
--- OUTSIDE RECORDS SUMMARY | 2024-02-29 05:23 | XMS_ITS | Encounter Summary ---
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] Procedures OR SLCTV CATHJ EA 1ST ORD ABDL PEL/LXTR ART BRNCH CHG ANGIO VISCERAL SELECTV/SUBSELEC MESENTERIC ARTERY ANGIOGRAM POSSIBLE INTERVENTION Referral ID Status Reason Start Date Expiration Date Visits Re quested Visits Authorized [id number] 1 1 Encounter Details Date Type Department Care Team (Late st Contact Info) Description 01/16/2021 10:00 AM INTERIOR WALL ASSEMBLER - 01/16/2021 12:00 PM INTERIOR WALL ASSEMBLER Surgery [facility] Cardiac Product Steward [address] [place] [address] Rosalva Simmons MD [address] [place] [id number] MESENTERIC ARTERY ANGIOGRAM POSSIBLE INTERVENTION Surgery Details Date/Time Status Location OR Service Patient Class Case Cl ass Case Type Trauma Case? 01/16/2021 10:00 AM Posted [facility] CARDIAC BASTING CLEANER CCL 2 Vascular Outpatient Elective Panel 1 Procedure LRB Anes Op Region Wound Class Comments MESENTERIC ARTERY ANGIOGRAM POSSIBLE INTERVENTION N/A Conscious Sedation SCIENTIFIC INVESTIGATOR STENT, 1ST ARTERY [address]4077 N/A Surgeon Surgeon Role Service Panel Rosalva Simmons MD Primary Vascular 1 documented in this encounter Social History Tobacco Use Types Packs/Day Years [...] Sign Reading Time Taken Comments Blood Pressure 120/78 01/16/2021 12:00 PM INTERIOR WALL ASSEMBLER Pulse 65 01/16/2021 12:00 PM INTERIOR WALL ASSEMBLER Temperature - - Respiratory Rate 16 01/16/2021 12:00 PM INTERIOR WALL ASSEMBLER Oxygen Saturation 100% 01/16/2021 12:00 PM INTERIOR WALL ASSEMBLER Inhaled Oxygen Concentration - - Weight 72.4 kg (159 lb 9.8 oz) 01/16/2021 8:23 A M INTERIOR WALL ASSEMBLER Height - - Body Mass Index 22.9 01/08/2021 1:33 PM INTERIOR WALL ASSEMBLER documented in this encounter Discharge Instructions * Discharge Instructions* Rosalva Simmons MD - 01/16/2021 11:09 AM INTERIOR WALL ASSEMBLER Ok to walk and go up stairs. Ok to shower tomorrow. No heavy lifting or strenuous activity for 48 hours. Please resume all home medications and ok for tylenol for pain. Please follow up with Dr. Simmons in 2 weeks in her office and please call for an appointment. [phone] Angiogram WHAT YOU NEED TO KNOW: An angiogram is used to examine blood flow through your arteries. Arteries carry blood from your heart to your body. DISCHARGE INSTRUCTIONS: Call 911 for any of the following: ?? You have any of the following signs of a heart attack: ?? Squeezing, pressure, or pain in your chest that lasts longer than 5 minutes or returns ?? Discomfort or pain in your back, neck, jaw, stomach, or arm ?? Trouble breathing ?? Nausea or vomiting ?? Lightheadedness or a sudden cold sweat, especially with chest pain or trouble breathing ?? You have any of the following signs of a stroke: ?? Numbness or drooping on one side of your face ?? Weakness in an arm or leg ?? Confusion or difficulty speaking ?? Dizziness, a severe headache, or vision loss Seek care immediately if: ?? Your arm or leg feels warm, tender, and painful. It may look swollen and red. ?? The leg or arm used for your angiogram is numb, painful, or changes color. ?? The bruise at your catheter site gets bigger or becomes swollen. ?? Your wound does not stop bleeding even after you apply firm pressure for 10 minutes. ?? You have weakness in an arm or leg. ?? You become confused or have difficulty speaking. ?? You have dizziness, a severe headache, or vision loss. Contact your healthcare provider if: ?? You have a fever. ?? Your catheter site is red, leaks pus, or smells bad. ?? You have increasing pain at your catheter site. ?? You have questions or concerns about your condition or care. Follow up with your healthcare provider as directed: Write down your questions so you remember to ask them during your visits. Watch for bleeding and bruising: It is normal to have a bruise and soreness where the catheter wentin. Contact your healthcare provider if your bruise gets larger. If your wound bleeds, use your hand to put pressure on the bandage. If you do not have a bandage, use a clean cloth to put pressure over and just above the puncture site. Seek care immediately if the bleeding does not stop within 10 minutes. Protect your leg after your procedure: Rest for the remainder of the day of your procedure. Keep your arm or leg straight as much as possible. If the angiogram catheter was put in your leg, do not use stairs for a few days after your angiogram. When you must use stairs, step up with the leg that was not used for the angiogram. Straighten this leg to move the other leg up to the next step without putting stress on it. You may be told not to lift more than 15 pounds for 5 days after your procedure. Your healthcare provider will tell you when it is safe to drive and start doing your other normaldaily activities. Go slowly at first. Keep your wound clean and dry: Ask your healthcare provider when you can bathe. Do not take baths or go in pools or hot tubs. Remove the pressure bandage before you shower. Carefully wash the wound with soap and water. Dry the area and put on new, clean bandages as directed. Change your bandage if it gets wet or dirty. Check your incision every day for signs of infection such as swelling, redness, or pus. Drink liquids as directed: Ask your healthcare provider how much liquid to drink each day and whichliquids are best for you. Liquids will help your body flush out the contrast liquid used during theprocedure. Limit alcohol: Do not drink alcohol for 24 hours after your procedure. Then limit alcohol. Women should limit alcohol to 1 drink a day. Men should limit alcohol to 2 drinks a day. A drink of alcohol is 12 ounces of beer, 5 ounces of wine, or 1?? ounces of liquor. Do not smoke: Nicotine and other chemicals in cigarettes and cigars can damage your blood vessels. Ask your healthcare provider for information if you currently smoke and need help to quit. E-cigarettes or smokeless tobacco still contain nicotine. Talk to your healthcare provider before you use these products. ?? 2017 [employer] Information is for End User's use only and may not be sold, redistributed or otherwise used for commercial purposes. All illustrations and images included in CareNotes?? are the copyrighted property of [employer] or [employer]. The above information is an institutional aide only. It is not intended as medical advice for individual conditions or treatments. Talk to your doctor, nurse or pharmacist before following any medical regimen to see if it is safe and effective for you. RIOR WALL ASSEMBLER documented in this encounter Medications at Time of Discharge [...] or self care documented in this encounter H&P Notes * Rosalva Simmons MD - 01/16/2021 9:06 AM CST This is an updated H& P. Previous H&P has been reviewed and there are no changes. Plan is for mesenteric artery angiogram with possible intervention. RIOR WALL ASSEMBLER documented in this encounter Miscellaneous Notes * Op Note - Rosalva Simmons MD - 01/16/2021 9:32 AM CST Operative Note Attending Surgeon: Rosalva Simmons MD Date of Surgery: 01/16/2021 Preoperative Diagnosis: Chronic mesenteric ischemia and SMA stenosis Postoperative Diagnosis: Same Procedure: Mesenteric artery angiogram SMA angiogram Stent placement of the SMA with a 6 x 26 Lifestream stent History: Patient is an 80-year-old male who presented to the office with complaints of abdominal pain following eating for the last 6 months. He said over that same time he has had an unintentional 60 lb weight loss. He says that he gets pain about 20-30 minutes after he eats. He has now started eating justvery small meals or soup to try to alleviate the pain but he still has pain after eating. 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 He is here today for angiogram with possible intervention. Conscious sedation: 4 mg of Versed and 100 mcg of fentanyl Start time 9:47 a.m. and end time 10:58 a.m. Estimated Blood Loss: 10 mL Dye Volume: 98 mL Specimens: None Complications: None Operative Note: After risks, benefits and alternatives were explained, informed consent was obtained by the patient. Patient was brought to the shipyard laborer suite and placed supine on the table. His bilateral groins areprepped and draped in sterile fashion, time-out was performed and fentanyl and Versed were given tothe patient. Under ultrasound guidance the right common femoral artery was identified and the skin and subcutaneous tissue was infiltrated with local anesthetic. The right common femoral artery was then cannulated with a micropuncture needle and the micropuncture wire was threaded into the iliac art pablo. This is confirmed on fluoroscopy. A marcia was made in the skin with an 11 blade and the needle was exchanged for the micropuncture sheath. The wire and cannulae removed and a Glidewire Advantage was then placed into the aorta. The sheath was upsized to a 5 Jamaican sheath and a Mod hook catheter was placed into the aorta. The II was taken into steep QUINTON and angiogram was obtained. The SMA was visualized and decision was made to treat. The Glidewire Advantage was taken back into the aorta and the catheter was removed. The sheath was upsized to a 6 Jamaican Terumo destination sheath. 7000 unitsof heparin was given to the patient. A series of catheters including the Omni SOS and RDC along with a Glidewire were then used to cannulate the SMA. The Glidewire and RDC were able to cannulate. Once the RDC was in the SMA angiogram was obtained to confirm placement. A Torres wire was then placed in the SMA and angiogram was then obtained to measure the distance of the stent that would be needed.Decision was made to use a 6 x 26 Lifestream stent. The cannula was placed into the sheath and the sheath was taken into the SMA past the lesion. The stent was then placed into the sheath right at the lesion and this sheath was pulled back. The stent was deployed and noted to be in good position. The balloon was pulled back and the stent was slightly hanging into the aorta and this was over inflated in this area. Once this was done angiogram was obtained and noted that the stent was in good position. The catheter was then placed back into the SMA and noted the SMA is widely patent. The Glidewire Advantage was then placed into the catheter and the catheter was pulled out of the SMA and back into the aorta. A final mesenteric artery angiogram was then obtained through the aorta noting that t here was good brisk filling of the vessels. ACT was drawn at this time and noted to be 284. Forty mg of protamine was given to the patient and 5 minutes was waited. The sheath was then removed and a ProGlide percutaneous closure device was then deployed in the right groin. Once there was good hemostasis the wire was removed and the knot was fully pushed down and the suture was cut. Pressure was held on the right groin for 10 minutes after this. A sterile dressing was placed over the top and patient tolerated the procedure well was taken to the recovery room. Angiographic findings: Pre intervention findings: The aorta is widely patent without any areas of flow- limiting stenosis. The bilateral common iliac arteries were widely patent without any flow-limiting stenosis. The celiac artery was patent with stenosis at its origin. The SMA was very stenotic at the origin with late filling. The bilateral renal arteries were widely patent. Post intervention findings: The SMA was widely patent with stent in place and good brisk filling into all the branches. Rosalva Simmons MD Date: 01/16/2021 Time: 12:16 PM RIOR WALL ASSEMBLER * Pre-Procedure Instructions - Marisabel Machuca RN - 01/12/2021 1:10 PM INTERIOR WALL ASSEMBLER We are pleased that you and your doctor have chosen [facility] for your surgery. We hope that the following information will help make your visit a pleasant one. Surgery Date: 01/16/2021 Arrive 0800 at [facility] Bring vaccination card Before your surgery: ?? Notify your doctor of ANY change in your health such as a cold, sore throat, fever, any infection or a change in the problem for which you are having your surgery. ?? Follow any instructions given to you by your doctor or surgeon. Check with your doctor if you need to STOP taking: ?? Aspirin (ordered by your doctor) ?? Plavix One week before surgery STOP taking: (Tylenol is okay). 24 hours before your surgery: ?? No smoking or alcoholic drinks. Night before your surgery: ?? Do not eat or drink anything after midnight. ?? Follow surgeon's instructions for anti-bacterial shower night before and morning of surgery. Day of surgery: ?? Do not swallow any water when you brush your teeth. ?? Do not take your AM insulin dose or any diabetic medicines ?? ONLY take these pills with a tiny sip of water. Pre-Surgery Instructions: Medication Instructions ??? acetaminophen (TYLENOL) 325 mg tablet Take morning of surgery ??? amLODIPine (NORVASC) 10 mg tablet Take morning of surgery ??? ascorbic acid (VITAMIN C) 500 mg tablet,chewable ??? aspirin 81 mg enteric coated tablet Take morning of surgery ??? atorvastatin (LIPITOR) 40 mg tablet ??? clopidogreL (PLAVIX) 75 mg tablet Take morning of surgery ??? gemfibroziL (LOPID) 600 mg tablet Take morning of surgery ??? isosorbide mononitrate ER (IMDUR) 60 mg 24 hr tablet Take morning of surgery ??? levETIRAcetam (KEPPRA) 1,000 mg tablet Take morning of surgery ??? metoprolol tartrate (LOPRESSOR) 25 mg immediate release tablet Take morning of surgery ??? pantoprazole DR (PROTONIX) 40 mg EC tablet Take morning of surgery ?? Use no make-up, nail icelandic, lotions, oils or powders on your skin. ?? Wear comfortable clothes that will not be tight in the area of your surgery. ?? Leave all valuables and jewelry (including all body piercing jewelry) at home. ?? If you use a CPAP machine, please bring it with you to wear after your surgery. ?? Please bring your a photo ID and insurance cards with you. ?? Check in at the Registration Desk. ?? If you are 17 years old or younger, a parent or guardian must come with you. After your Outpatient Surgery: ?? You must have a responsible adult to drive you home, you will not be allowed to drive or take a cab home. ?? We recommend you have someone stay with you for 24 hours after your surgery. What to bring if you are spending the night with us: ?? Bring toiletry items such as: robe, slippers, toothbrush, toothpaste, brush or comb. ?? Bring contact lens, hearing aids, glass cases and denture container if you use any of these items. ?? The hospital will provide you with a gown. Questions or concerns: ?? If you have any questions or concerns regarding your procedure, contact your surgeon as soon as possible. ?? If you have questions regarding your Pre-Admission Testing, please call us. We can be reached atthe number posted at the top of the page. RIOR WALL ASSEMBLER documented in this encounter Plan of Treatment Not on file documented as of this encounter Procedures Procedure Name Priority Date/Time Associated Diagnosis Comments OPEN/PERC PLMN STENT 38846 Routine 01/16/2021 11:12 AM INTERIOR WALL ASSEMBLER Superior mesenteric artery stenosis (CMS/HCC) (HCC) AORTOGRAM ABDOMINAL S&I Routine 01/16/2021 11:12 AM INTERIOR WALL ASSEMBLER Superior mesenteric artery stenosis (CMS/HCC) (HCC) POCT ACTIVATED CLOTTING TIME, LOW RANGE Routine 01/16/2021 10:45 AM INTERIOR WALL ASSEMBLER EGFR STAT 01/16/2021 8:12 AM INTERIOR WALL ASSEMBLER DIFFERENTIAL AUTO STAT 01/16/2021 8:1 2 AM INTERIOR WALL ASSEMBLER CBC WITH AUTO DIFFERENTIAL STAT 01/16/2021 8:12 AM INTERIOR WALL ASSEMBLER APTT STAT 01/16/2021 8:12 AM INTERIOR WALL ASSEMBLER PROTIME-INR STAT 01/16/2021 8:12 AM INTERIOR WALL ASSEMBLER BASIC METABOLIC PANEL STAT 01/16/2021 8:12 AM INTERIOR WALL ASSEMBLER documented in this encounter Results * AORTOGRAM ABDOMINAL S&I, OPEN/PERC PLMN STENT 1ST 30288 (01/16/2021 11:12 AM INTERIOR WALL ASSEMBLER) Anatomical Region Laterality Modality X-Ray Angiograph y Narrative 01/16/2021 11:14 AM INTERIOR WALL ASSEMBLER Please see OpNote for result. us Rosalva Simmons MD CV CARDIAC CATH PROCEDUR ES Final Result * (ABNORMAL) POCT Activated clotting time, low range (01/16/2021 10:45 AM INTERIOR WALL ASSEMBLER) ACT 284(H) 123 - 168 sec [facility] POC Performer [id number] [facility] POC Device Number [id number] [facility] Blood 01/16/2021 10:4 5 AM INTERIOR WALL ASSEMBLER 01/16/2021 10:45 AM INTERIOR WALL ASSEMBLER us Rosalva Simmons MD LAB POCT ORDERABLES - DE VICE Final Result Performing Organization Address City/State/[facility] Co de Phone Number [facility] [address] [facility] Department [place] [address] * eGFR (01/16/2021 8:12 AM INTERIOR WALL ASSEMBLER) Pathologist [facility] eGFR 80 mL/min/1.7 3 m2 [facility] Comment: Interpretive Data Reference Interval Normal ?>/= 90 mL/min/1.73m2 Mildly decreased* ? 60 - 89 mL/min/1.73m2 Mildly to moderately decreased ?45 - 59 mL/min/1.73m2 Moderately to severely decreased ??30 - 44 mL/min/1.73m2 Severely decreased ?15 - 29 mL/min/1.73m2 Kidney Failure ?< 15 ??mL/min/1.73m2 *Relative to young adult level Estimated glomerular filtration rate is determined by the CKD-EPI equation recommended by the National Kidney Foundation (KDIGO 2012 Clinical Practice Guideline for the Evaluation and Management of Chronic Kidney Disease. Kidney Intnl Suppl Feb 2012;3:1). The CKD-EPI equation should not be used for patients with unstable renal function and has not been validated in children and those over 70. Current interpretive data was last reviewed 2020 Blood 01/16/2021 8:12 AM INTERIOR WALL ASSEMBLER 01/16/2021 8:15 AM INTERIOR WALL ASSEMBLER us Rosalva Simmons MD LAB BLOOD ORDERABLES Fin al Result [facility] [address] [facility] Department [place] [address] * Differential, auto (01/16/2021 8:12 AM INTERIOR WALL ASSEMBLER) Pathologist [facility] Neutrophil abs 4.6 1.7 - 6.5 K/cumm [facility] Imm gran abs 0.0 0.0 - 0.1 K/cumm [facility] Lymphocyte abs 1.3 0.8 - 3.3 K/cumm [facility] Monocyte abs 0.6 0.2 - 0.8 K/cumm [facility] Eosinophil abs 0.1 0.0 - 0.5 K/cumm [facility] Basophil abs 0.1 0.0 - 0.1 K/cumm [facility] Neutrophil pct 67.9 % [facility] Comment: Interpretive Data Percent cell count reference ranges are not reported, since discordance with absolute values may lead to misinterpretation of CBC data. Current Interpretive Data was last revised on 2017. Imm gran pct 0.6 % [facility] Comment: Interpretive Data Percent cell count reference ranges are not reported, since discordance with absolute values may lead to misinterpretation of CBC data. Current Interpretive Data was last revised on 2017. Lymphocyte pct 19.6 % [facility] Comment: Interpretive Data Percent cell count reference ranges are not reported, since discordance with absolute values may lead to misinterpretation of CBC data. Current Interpretive Data was last revised on 2017. Monocyte pct 9.1 % [facility] Comment: Interpretive Data Percent cell count reference ranges are not reported, since discordance with absolute values may lead to misinterpretation of CBC data. Current Interpretive Data was last revised on 2017. Eosinophil pct 2.1 % [facility] Comment: Interpretive Data Percent cell count reference ranges are not reported, since discordance with absolute values may lead to misinterpretation of CBC data. Current Interpretive Data was last revised on 2017. Basophil pct 0.7 % [facility] Comment: Interpretive Data Percent cell count reference ranges are not reported, since discordance with absolute values may lead to misinterpretation of CBC data. Current Interpretive Data was last revised on 2017. Blood 01/16/2021 8:12 AM INTERIOR WALL ASSEMBLER 01/16/2021 8:15 AM INTERIOR WALL ASSEMBLER Rosalva Simmons MD LAB BLOOD ORDERABLES Fin al Result [place] [address] [facility] Department [place] [address] * (ABNORMAL) CBC with auto differential (01/16/2021 8:12 AM INTERIOR WALL ASSEMBLER) WBC 6.7 3.8 - 9.9 K/cumm [facility] Hgb 14.4 13.0 - 17.5 g/dL [facility] Hct 44.1 38.9 - 50.3 % [facility] Plt 242 150 - 400 K/cumm [facility] MPV 8.8(L) 9.1 - 12.3 fL [facility] RBC 4.77 4.30 - 5.80 M/cumm [facility] MCV 92.5 81.3 - 96.4 fL [facility] MCH 30.2 27.1 - 33.3 pg [facility] MCHC 32.7 32.3 - 35.7 g/dL [facility] RDW CV 12.9 11.1 - 14.9 % [facility] RDW SD 43.7 35.7 - 48.1 fL [facility] NRBC abs 0.00 0.00 - 0.01 K/cumm [facility] Blood 01/16/2021 8:12 AM INTERIOR WALL ASSEMBLER 01/16/2021 8:15 AM INTERIOR WALL ASSEMBLER Narrative [facility] - 01/16/2021 8:21 AM INTERIOR WALL ASSEMBLER If most recent labs were drawn prior to 4 AM, draw only prior to initiating procedure. Rosalva Simmons MD LAB BLOOD ORDERABLES Fin lakisha Result [facility] Department [place] [address] * (ABNORMAL) Basic metabolic panel (01/16/2021 8:12 AM INTERIOR WALL ASSEMBLER) [facility] Sodium 133(L) 135 - 145 mmol/L [facility] Potassium, pl 4.5 3.3 - 4.9 mmol/L [facility] Chloride 98 97 - 110 mmol/L [facility] CO2 26 22 - 32 mmol/L [facility] Anion gap 9 2 - 15 mmol/L [facility] BUN 13 8 - 25 mg/dL [facility] Creatinine 0.90 0.80 - 1.30 mg/dL [facility] Glucose 94 70 - 199 mg/dL [facility] Comment: Interpretive Data Fasting glucose >/= 126 [...] interpretive data was last revised 2017. Calcium 10.1 8.5 - 10.3 mg/dL [facility] Blood 01/16/2021 8:12 AM INTERIOR WALL ASSEMBLER 01/16/2021 8:15 AM INTERIOR WALL ASSEMBLER Rosalva Simmons MD LAB BLOOD ORDERABLES Fin al Result [address] Department [place] [address] * aPTT (01/16/2021 8:12 AM INTERIOR WALL ASSEMBLER) aPTT 27 22 - 37 sec [facility] Comment: Interpretive data aPTT test has not been evaluated for monitoring heparin therapy. The anti-Xa is the preferred test. Current interpretive data was last revised on 2019. Blood 01/16/2021 8:12 AM INTERIOR WALL ASSEMBLER 01/16/2021 8:15 AM INTERIOR WALL ASSEMBLER Rosalva Simmons MD LAB BLOOD ORDERABLES Fin al Result Performing Organization Address [facility] de Phone Number [address] [place] [address] * Protime-INR (01/16/2021 8:12 AM INTERIOR WALL ASSEMBLER) PT 12.3 12.0 - 14.6 sec [facility] INR 0.9 [facility] Comment: Ref Range High Interpretive data Oral anticoagulant therapeutic ranges: Venous thromboembolism prophylaxis or treatment: 2.0-3.0 CARDIOLOGY Standard range: 2.0-3.0 High-intensity range: 2.5-3.5 Refer to indication-specific guidelines for appropriate target ranges for prosthetic heart valve replacement. Current interpretive data was last revised on 2019. Blood 01/16/2021 8:12 AM INTERIOR WALL ASSEMBLER 01/16/2021 8:15 AM INTERIOR WALL ASSEMBLER Rosalva Simmons MD LAB BLOOD ORDERABLES Fin al Result Performing Organization Address [facility] de Phone Number [address] [place] [address] documented in this encounter Visit Diagnoses Diagnosis Superior mesenteric artery stenosis (CMS/HCC) (HCC)- Primary Stricture of artery Superior mesenteric artery stenosis (CMS/HCC) (HCC) Stricture of artery documented in this encounter Admitting Diagnoses Diagnosis Superior mesenteric artery stenosis (CMS/HCC) (HCC) Stricture of artery documented in this encounter Administered Medications Inactive Administered Medications - up to 3 most recent administrations Medication Order MAR Action Action Date Dose Rate Site fentaNYL (SUBLIMAZE) preservative free injection As needed, Starting on Fri01/16/21 at 0944, Intra-Procedure (CV) Given 01/16/2021 10:36 AM [employer] 25 mcg Given 01/16/2021 10:12 AM [employer] 25 mcg Given 01/16/2021 9:44 AM [employer] 50 mcg heparin 1,000 unit/mL injection As needed, Starting on Fri01/16/21 at 1003, Intra-Procedure (CV) Given 01/16/2021 10:03 AM [employer] 7,000 Units iodixanoL (VISIPAQUE) 320 mg iodine/mL injection As needed, Starting on Fri01/16/21 at 1104, Intra-Procedure (CV) Given 01/16/2021 11:04 AM [employer] 98 mL lidocaine (XYLOCAINE) 10 mg/mL (1 %) injection As needed, Starting on Fri01/16/21 at 0950, Intra-Procedure (CV), Indications: Administration of Local AnesthesiaIndications:Administra tion of Local Anesthesia Given 01/16/2021 9:50 AM [employer] 12 mL Right Groin midazolam (VERSED) 1 mg/mL injection As needed, Starting on Fri01/16/21 at 0943, Intra-Procedure (CV) Given 01/16/2021 10:36 AM [employer] 1 mg Given 01/16/2021 10:12 AM [employer] 1 mg Given 01/16/2021 9:43 AM [employer] 2 mg protamine injection As needed, Starting on Fri01/16/21 at 1051, Intra-Procedure (CV), Indications: Heparin ToxicityIndications:Heparin Toxicity Given 01/16/2021 10:51 AM [employer] 40 mg sodium chloride 0.9% flush 0.5-20 mL 0.5-20 mL, intra-catheter, As needed, line care, Starting on Fri01/16/21 at 0749, Pre-Procedure (CV), Flush volume based on line type and size. Flush before and after each use. sodium chloride 0.9% flush 0.5-20 mL 0.5-20 mL, intra-catheter, Every 8 hours scheduled, First dose on Fri01/16/21 at 1400, Flush volume based on line type and size. sodium chloride 0.9% flush 0.5-20 mL 0.5-20 mL, intra-catheter, As needed, line care, Starting on Fri01/16/21 at 1237, Flush volume based on line type and size. Flush before and after each use. sodium chloride 0.9% infusion 100 mL/hr, intravenous, Continuous, Starting on Fri01/16/21 at 0830, Pre-Procedure (CV) Rate/Dose Change 01/16/2021 12:54 PM [employer] 75 mL/hr 75 mL/hr New Bag 01/16/2021 8:15 AM [employer] 100 mL/hr 100 mL/hr sodium chloride 0.9% infusion 75 mL/hr, intravenous, Continuous, Starting on Fri01/16/21 at 1315, Phase I & Post-op Floor, May discontinue when tolerating PO (more than 250 mL in 8 hours) documented in this encounter Active and Recently Administered Medications Times are shown in [employer]. Scheduled Medication Order 01/14/2021 01/15/2021 01/16/2021 sodium chloride 0.9% flush 0.5-20 mL 0.5-20 mL, intra-catheter, Every 8 hours scheduled, First dose on Fri01/16/21 at 1400, Flush volume based on line type and size. 1400 (Due) Continuous Medication Order 01/14/2021 01/15/2021 01/16/2021 sodium chloride 0.9% infusion 100 mL/hr, intravenous, Continuous, Starting on Fri01/16/21 at 0830, Pre-Procedure (CV) 0815 (New Bag - Prov ider: Marly Webb RN)1254 (Rate/Dose Change - Provider: Marly Webb RN - Comment: Recovery IVF per Dr. Simmons's orders) sodium chloride 0.9% infusion 75 mL/hr, intravenous, Continuous, Starting on Fri01/16/21 at 1315, Phase I & Post-op Floor, May discontinue when tolerating PO (more than 250 mL in 8 hours) 1315 (Due) PRN Medication Order 01/14/2021 01/15/2021 01/16/2021 fentaNYL (SUBLIMAZE) preservative free injection (CANCELED) As needed, Starting on Fri01/16/21 at 0944, Intra-Procedure (CV) 0944 (Given - Provid er: Marly Webb RN)1012 (Given - Provider: Marly Webb RN)1036 (Given - Provider: Marly Webb RN) heparin 1,000 unit/mL injection (CANCELED) As needed, Starting on Fri01/16/21 at 1003, Intra-Procedure (CV) 1003 (Given - Provid er: Marly Webb RN) iodixanoL (VISIPAQUE) 320 mg iodine/mL injection (CANCELED) As needed, Starting on Fri01/16/21 at 1104, Intra-Procedure (CV) 1104 (Given - Provid er: Rosalva Simmons MD) lidocaine (XYLOCAINE) 10 mg/mL (1 %) injection (CANCELED) As needed, Starting on Fri01/16/21 at 0950, Intra-Procedure (CV), Indications: Administration of Local Anesthesia 0950 (Given - Provid er: Rosalva Simmons MD)1103 (Canceled Entry - Provider: Rosalva Simmons MD) midazolam (VERSED) 1 mg/mL injection (CANCELED) As needed, Starting on Fri01/16/21 at 0943, Intra-Procedure (CV) 0943 (Given - Provid er: Marly Webb RN)1012 (Given - Provider: Marly Webb RN)1036 (Given - Provider: Marly Webb RN) protamine injection (CANCELED) As needed, Starting on Fri01/16/21 at 1051, Intra-Procedure (CV), Indications: Heparin Toxicity 1051 (Given - Provid er: Marly Webb RN) sodium chloride 0.9% flush 0.5-20 mL 0.5-20 mL, intra-catheter, As needed, line care, Starting on Fri01/16/21 at 0749, Pre-Procedure (CV), Flush volume based on line type and size. Flush before and after each use. sodium chloride 0.9% flush 0.5-20 mL 0.5-20 mL, intra-catheter, As needed, line care, Starting on Fri01/16/21 at 1237, Flush volume based on line type and size. Flush before and after each use. documented in this encounter Orders Medications Ordered That Arvin ht Not Have Been Administered Count Last Ordered Date First Ordered Date sodium chloride 0.9% flush 0.5-20 mL 3 12/20 sodium chloride 0.9% infusion 1 01/16/2021 Discharge Count Last Ordered Date First Orde red Date DISCHARGE PATIENT 1 01/16/2021 CORE MEASURES Count Last Ordered Date First Ord ered Date REASON FOR NO VTE PROPHYLAXIS AT ADMISSION 1 01/16/2021 documented in this encounter Care Teams Under Water Assistant Relationship Specialty Start Date End Date David Ramon MD [address] [place] [id number] PCP - General Family Medicine 01/09/21 documented as of this encounter
--- OUTSIDE RECORDS SUMMARY | 2024-02-29 05:23 | XMS_ITS | Encounter Summary ---
Author Organization [facility] Address [address] [place] [address] Care Team Providers Care Manager Internet Name Role Phone David Ramon MD Primary Care Provider [phone] Encounter Details Date Type Department Care Team (Late st Contact Info) Description 07/13/2021 1:30 PM CDT - 07/13/2021 4:00 PM CDT Surgery [facility] [address] [place] [address] Hamlet Marte MD [address] [facility] [address] [place] [address] PCI NANY MAJOR CORONARY C9600 - [id number] Surgery Details Date/Time Status Location OR Service Patient Class Case Class Case Type Trauma Case? 07/13/2021 1:30 PM Posted [facility] CARDIAC CODING SPECIALIST HOME HEALTH HYBRID E Cardiovascular Outpatient Elective Panel 1 Procedure LRB Anes Op Region Wound Class Comments PCI NANY MAJOR CORONARY C9600 - [id number] N/A Conscious Sedation IVUS/OCT CORS OR GRAFTS, FIR ST VESSEL (+) [id number] N/A Surgeon Surgeon Role Service Panel Hamlet Marte MD Primary Cardiovascular 1 Case Notes NPR/AetnaMcOrders incto-office to [facility] documented in this encounter Social History Tobacco [...] Sign Reading Time Taken Comments Blood Pressure 111/52 07/13/2021 3:40 PM CDT Pulse 51 07/13/2021 3:40 PM CDT Temperature - - Respiratory Rate 12 07/13/2021 3:40 PM CDT Oxygen Saturation 97% 07/13/2021 3:40 PM CDT Inhaled Oxygen Concentration - - Weight - - Height - - Body Mass Index - - documented in this encounter Discharge Summaries * Cornelius Zapata MD - 07/14/2021 12:01 PM CDT Images from the original note were not included. Inpatient Discharge Summary Admitting Provider: Amrit Lagos MD Discharge Provider: Cornelius Zapata MD Primary Care Physician at Discharge: David Ramon MD [phone] Admission Date: 07/13/2021 Discharge Date: 07/14/21 Primary Discharge Diagnosis: Coronary artery disease S/P coronary artery stent placement Essential hypertension Mixed hyperlipidemia History of stroke Seizure disorder ([facility]) ([facility]) Chronic anemia Consultants: Cardiology DETAILS OF HOSPITAL STAY Chief Complaint: Post PCI observation Hospital Course: Ramiro Enciso is a 80 y.o. male who underwent an outpatient PCI on 07/13/[address] Marte. He underwent successful PCI of his ostial proximal RCA using 1 NANY. [facility]. Pt will be discharged home today. Active Issues Requiring Follow-up: CAD s/p PCI with NANY - follow up with cardiology and cardiac rehab. Test Results Pending at Discharge: n/a Operative Procedures Performed: Procedure(s): PCI NANY MAJOR CORONARY C9600 - [id number] IVUS/OCT CORS OR GRAFTS, FIRST VESSEL (+) [id number] Pertinent Test Results: Recent Labs Lab Units 07/14/21 0406 07/09/21 1126 WBC K/cumm 8.1 6.8 HEMOGLOBIN g/dL 9.9* 11.4* HEMATOCRIT % 30.8* 34.3* PLATELETS K/cumm 258 296 Recent Labs Lab Units 07/14/21 0406 07/13/21 1219 07/09/21 1126 SODIUM mmol/L 138 -- 134* POTASSIUM PLASMA mmol/L 4.4 -- 4.9 CHLORIDE mmol/L 102 -- 100 CO2 mmol/L 23 -- 24 BUN SERUM mg/dL 14 -- 10 CREATININE mg/dL 0.90 -- 0.80 GLUCOSE mg/dL 99 -- 106 POC GLUCOSE MONITOR mg/dL -- 108 -- CALCIUM mg/dL 9.4 -- 9.8 Discharge Details Physical Exam at Discharge: Vitals: 07/14/21 0915 BP: 115/57 Pulse: 90 Resp: 20 Temp: 37.2 C SpO2: 96% General: Awake, Alert, No acute distress on room air, Oriented x 3. Eyes: EOMI, Non-icteric sclerae. Neck: No masses, goiter, or nuchal ridigity, no caroid bruits. No JVD Mouth: Mucosa is moist and pink. Adequate dentition. Lungs: Clear to auscultation bilaterally. Normal inspiratory effort Heart: RRR, +S1,+S2, no murmurs Abd: +BS, Non Tender, Non distended, No gross organomegaly. Genital: Deferred. Extremities: No lower extremity edema or cyanosis. Neuro: CN 2-12 intact. No focal deficits. Normal speech. MS 5/5 all over. Msk: No scoliosis, joint deformity, or joint tenderness Skin: No rash, lesions, erythema, or skin breakdown Discharge Condition: Stable Discharge Disposition: home Code Status at Discharge: Full Code Discharge Instructions: Weight Bearing Status: Precautions: Fall risk Nutritional Status and in-house recommendations: Dietary Orders (From admission, onward) Start Ordered 07/13/211999 Adult Diet Regular Diet effective now Question: ([facility]) Diet type Answer: Regular 07/13/211958 Allergies: Patient has no known allergies. Discharge Medications: Your medication list CONTINUE taking these medications Instructions Last Dose Given Next Dose Due acetaminophen 325 mg tablet Commonly known as: TYLENOL amLODIPine 10 mg tablet Commonly known as: NORVASC ascorbic acid 500 mg tablet,chewable Commonly known as: VITAMIN C aspirin 81 mg enteric coated tablet atorvastatin 40 mg tablet Commonly known as: LIPITOR clopidogreL 75 mg tablet Commonly known as: PLAVIX gemfibroziL 600 mg tablet Commonly known as: LOPID isosorbide mononitrate ER 60 mg 24 hr tablet Commonly known as: IMDUR Take 1 tablet (60 mg total) by mouth daily levETIRAcetam 1,000 mg tablet Commonly known as: KEPPRA metoprolol tartrate 25 mg immediate release tablet Commonly known as: LOPRESSOR pantoprazole DR 40 mg EC tablet Commonly known as: PROTONIX Anticoagulation Indication: Lab Results Component Value Date INR 1.0 07/09/2021 INR 0.9 01/16/2021 Warfarin Administrations (last 168 hours) None Oxygen Status O2 Therapy for the past 12 hrs: O2 Therapy 07/14/21 0915 None (Room air) Wound Care Instructions No Wound Therapy to show Active LDAs Patient Lines/Drains/Airways Status Active Airway None Outpatient Follow-Up: Follow up with David Ramon MD in 1-2 weeks. Follow up with Dr. Rick in 2 weeks. Future Appointments Date Time Provider Department Center 08/08/2021 10:00 AM Bronwyn Claros, [facility] Specialty Time spent in discharge process: 15 minutes Cornelius Zapata MD Adult Hospitalist Diplomate of ABI documented in this encounter Discharge Instructions * Attachments The following attachments cannot be sent through Care Everywhere. * After Heart Catheterization (Wash Oil Cooler Operator) (Greek) * After Radial Heart Catheterization (General Information) (Greek) documented in this encounter Medications at Time [...] or self care documented in this encounter Progress Notes * Amrit Lagos MD - 07/14/2021 9:08 AM CDT [facility] [address] [address] Cardiology Electrophysiology Reid Madrigal, MD Francisco Rubalcava,, MD Aung Roa, MD Rafal Villalba, MD Momo Goncalves, MD Amanuel Lujan, MD Isaac Rosario, DO Braulio Greer, MD Amrit Lagos, MD Steph Tai, FINISHED METAL REPAIRER Jax Eid, MD Tanya Santamaria, MD Hamlet Marte, MD José Gilmore, MD Martina Hercules, DO Mendez Arndt, MD Gianfranco Grant, MD Halie Thrasher, FINISHED METAL REPAIRER Marian Rudolph, FINISHED METAL REPAIRER Ruby Alaniz, FINISHED METAL REPAIRER Cardiology Daily Progress Note Patient Name: Ramiro Enciso Provider: Amrit Lagos [facility] 1940 Date of Service: 07/14/2021 SUBJECTIVE: Patient denies chest pain or dyspnea. No further oozing from right femoral arteriotomy. MEDICATIONS: aspirin, 81 mg, oral, Daily atorvastatin, 40 mg, oral, Nightly clopidogreL, 75 mg, oral, Daily gemfibroziL, 300 mg, oral, BID levETIRAcetam, 1,000 mg, oral, BID metoprolol tartrate, 50 mg, oral, BID pantoprazole DR, 20 mg, oral, Daily - 0600 REVIEW OF SYSTEMS: General: No fever, chills, malaise or fatigue Eyes: No alterations in visual acuity ENT: No alterations in auditory acuity, no sore throat Pulmonary: No dyspnea, cough or hemoptysis GI: No nausea, vomiting, diarrhea or constipation Musculoskeletal: No myalgias or arthralgias Skin: no rashes Neuro: No headaches, parathesias or focal neurological complaints Endocrine: No cold or heat intolerance Heme: no excessive bleeding or bruising PHYSICAL EXAM: Vitals: 07/14/21 0045 07/14/21 0300 07/14/21 0440 07/14/21 0848 BP: 100/52 112/53 115/57 BP Location: Right arm Right arm Left arm Patient Position: Lying Lying Lying Pulse: 63 61 71 91 Resp: 20 20 20 Temp: 37.2 ??C (98.9 ??F) 37 ??C (98.6 ??F) 37.2 ??C (98.9 ??F) TempSrc: Oral Oral Axillary SpO2: 99% 98% 96% Weight: 68.9 kg (151 lb 14.4 oz) Height: Intake/Output Summary (Last 24 hours) at 07/14/2021 0908 Last data filed at 07/14/2021 0625 Gross per 24 hour Intake -- Output 150 ml Net -150 ml General: Well appearing, No pain or distress, well nourished Eyes: EOMI, Conjuctiva Clear ENT: External ears/nose normal Neck: Supple, no thyromegaly Respiratory: Clear to ausculation bilaterally; no wheezing/rales/rhonchi; respirations nonlabored Cardiovascular: RRR, normal S1 and S2. No S3 or S4. No murmers or rubs. Carotid upstrokes brisk bilaterally and without bruits. Normal right Michelet's test Gastrointestinal: soft, non-tender abdomen Extremities: no cyanosis or clubbing or edema Mild bruising on right femoral artery. No oozing. Musculoskeletal: no obvious joint deformities Skin: no obvious rash or bruising Psychiatric: normal affect Neurologic: awake/alert, no focal deficits LAB/RADIOLOGY/DIAGNOSTIC REVIEW: Recent Labs Lab Units 07/14/21 0406 07/09/21 1126 HEMOGLOBIN g/dL 9.9* 11.4* HEMATOCRIT % 30.8* 34.3* WBC K/cumm 8.1 6.8 PLATELETS K/cumm 258 296 Recent Labs Lab Units 07/14/21 0406 07/13/21 1219 07/09/21 1126 SODIUM mmol/L 138 -- 134* POTASSIUM PLASMA mmol/L 4.4 -- 4.9 CHLORIDE mmol/L 102 -- 100 CO2 mmol/L 23 -- 24 ANIONGAP mmol/L 13 -- 10 GLUCOSE mg/dL 99 -- 106 POC GLUCOSE MONITOR -- < > -- BUN SERUM mg/dL 14 -- 10 CREATININE mg/dL 0.90 -- 0.80 < > = values in this interval not displayed. No results found. IMPRESSION Coronary artery disease s/p PCI to the RCA H/o CVA Seizure disorder Hypertension Hyperlipidemia Plan: Right femoral arteriotomy no long oozing. Only mild bruising. Patient feels well. Ok to discharge from cardiovascular standpoint. Continue aspirin, clopidogrel, metoprolol, atorvastatin Follow up with primary compliance testing analyst Dr. Rick Thank you for allowing me to participate in the care of this patient. Please do not hesitate to call or secure chat with any questions or concerns. Amrit Lagos MD, [facility] * Pernell Smalls EP-C - 07/13/2021 3:31 PM CDT Inpatient Cardiac Rehab Education Patient Information Patient Name: Ramiro Enciso : 1940 Room/Bed: [facility] CODING SPECIALIST HOME HEALTH/NONE Insurance: A[employer]na Medicare Progress Note Manager [employer]: TESS Zacarias Date: 07/13/2021 Referring Diagnosis for Cardiac Rehab - S/P Drug Eluting Stent x 1 Education Provided Explained my role as a Cardiac Rehab Navigator (CRN). Provided Cardiac Rehab education to pt. Family was present. Pt was provided with Cardiac Rehab education folder. ?? Risk Factors: HTN, HLD Discussed and provided resources for managing the above risk factors, as well as managing stress/anxiety/depression. - Briefly discussed cardiac medications, and the importance of medication adherence. Advised pt to consult their nurse, physician, and/or pharmacist if they have any questions about their medications. - Briefly discussed the benefit of lifestyle modifications such as diet (sodium and saturated fats)and exercise. Advised pt to consult their formulation chemist, nurse, and/or physician if they have any questions about their diet/nutrition. ?? Cardiac Rehab: Gave pt options of facilities for Outpatient Cardiac Rehab (OCR) in their community. Explained OCR program. Pt expressed knowledge towards local OCR program - pt [facility] in [place], [place] I stressed the importance/benefits of incorporating regular aerobic exercise into their lifestyle. I explained how this would assist in their recovery post- PCI, and help maintain/improve their cardiovascular health going forward. ?? I advised pt to follow physician instructions/restrictions as prescribed post-discharge. ?? I recommended... ?? Exercise Education: Explained the importance of trying to gradually/safely increase exercise tolerance. Educated pt on working towards eventually trying to reach the [place] [employer] recommendations in regardsto exercise: 150+ minutes/week of light to moderate-intensity aerobic exercise, or 75+ minutes/weekof vigorous-intensity aerobic exercise. I explained how this would help to improve cardiovascular function, as well as quality of life. - Explained safe exercise intensities with pt, discussing how using the talk test as a frame of reference in regards to preferable intensity level for general population. - Suggested that pt avoid strenuous exercise/exertion outside if the weather is under 40 degrees, or over 85 degrees. Explained the physiological reasoning for this suggestion. - Educated pt on the signs/symptoms of over-exertion: SOB, chest discomfort, musculoskeletal pain, abnormal fatigue. Explained when it would be appropriate to call Registrar Assistant's office, go to the ER, or call 911. ?? Insurance Coverage: Briefly explained general insurance coverage for OCR, but assured pt that OCR facility will usuallycall insurance and inform pt of more of an approximate coverage. ?? Post-Discharge: Explained process between discharge from hospital, and getting set up in an OCR program - f/u with Registrar Assistant, CRN f/u calls, OCR program contact. Conclusion Pt seems likely to participate in OCR. Reassured pt of importance and health care provider support of OCR. Pt verbalized understanding of education, and all questions were answered to the best of my ability. Will complete order for OCR to be sent to Registrar Assistant. Thank you for allowing us to sales support assistant in the care of this patient, please don't hesitate to contact the Cardiac Rehab Navigator office with any questions: [phone]. * Hamlet Marte MD - 07/13/2021 11:33 AM CDT Ramiro Enciso is a 80 y.o. male who presents for follow up of chest pain. This is a patient who has not been found to have coronary artery disease previously. I saw him a couple of times in the hospital at [place] in August of 2020 and again in [...] was referred to a vascular surgeon in [place] who performed a stent procedure on that with improvement in those symptoms. ?? He presents today for scheduled 3 month follow-up appointment in the office. He does not describe any symptoms of a cardiac nature. He says he will occasionally have some chest discomfort if he gets upset about something but nothing that occurs in exertional fashion. Denies any orthopnea PND or edema. No palpitations or syncope. He has seen Dr. Ramon as his new primary care physician. ?? REVIEW OF SYSTEMS General ROS: negative for [...] joint pain, muscle pain or muscular weakness ?? Dermatological ROS: negative for dry skin, eczema, pruritus and rash ?? HOME MEDICATIONS ?? Current Outpatient Medications: ??? acetaminophen (TYLENOL) 325 mg tablet, Take 650 mg by mouth 2 (two) times a day as needed for pain, Disp: , Rfl: ??? ascorbic acid (VITAMIN C) 500 mg tablet,chewable, Take 500 mg by mouth daily, Disp: , Rfl: ??? aspirin 81 mg enteric coated tablet, Take 81 mg by mouth daily, Disp: , Rfl: ??? atorvastatin (LIPITOR) 40 mg tablet, Take 40 mg by mouth nightly, Disp: , Rfl: ??? clopidogreL (PLAVIX) 75 mg tablet, Take 75 mg by mouth daily, Disp: , Rfl: ??? gemfibroziL (LOPID) 600 mg tablet, Take by mouth 2 (two) times a day, Disp: , Rfl: ??? levETIRAcetam (KEPPRA) 1,000 mg tablet, Take by mouth 2 (two) times a day, Disp: , Rfl: ??? metoprolol tartrate (LOPRESSOR) 25 mg immediate release tablet, Take 50 mg by mouth 2 (two) times a day, Disp: , Rfl: ??? pantoprazole DR (PROTONIX) 40 mg EC tablet, Take by mouth precision filer hand before breakfast, Disp:, Rfl: ??? amLODIPine (NORVASC) 10 mg tablet, Take 10 mg by mouth daily (Patient not taking: Reported on 03/29/2021), Disp: , Rfl: ??? isosorbide mononitrate ER (IMDUR) 60 mg 24 hr tablet, Take 1 tablet (60 mg total) by mouth daily (Patient not taking: Reported on 03/29/2021), Disp: 30 tablet, Rfl: 11 ?? LABS AND OTHER DIAGNOSTIC TESTS No results found for: CHOL No results found for: HDL No results found for: LDLCALC No results found for: TRIG No results found for: CHOLHDL Lab Results Component Value Date ?? WBC 6.7 01/16/2021 ?? HGB 14.4 01/16/2021 ?? HCT 44.1 01/16/2021 ?? MCV 92.5 01/16/2021 ? No lab exists for component: LABALBU ? PHYSICAL EXAM ?? Vitals BP 120/70 (BP Location: Right arm, Patient Position: Sitting) Pulse 70 Ht 177.8 cm (5' 10 ) Wt 71.7 kg (158 lb) SpO2 97% BMI 22.67 kg/m? Physical Examination: General appearance - alert, pleasant [...] no rashes, no suspicious skin lesions noted ?? ASSESSMENT Ramiro was seen today for coronary artery disease. ?? Diagnoses and all orders for this visit: ?? 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 History of coronary artery stent placement ?PCI today Hamlet Marte MD ? documented in this encounter H&P Notes * Shraddha Correa MD - 07/13/2021 11:16 PM CDT Date of service: 07/13/21 Primary care provider: David Ramon MD Chief Complaint: Chest pain HPI: Mr. Enciso is an 80 yo M with PMH of prior CVA, seizure disorder, HTN, and HLD who is transferred tot cardiac floor from the culture media laboratory assistant following PCI. The patient reports that for about the past year, he has intermittently been experiencing chest discomfort that he describes as heaviness. It primarily occurs when he has been active and lasts for about 30 mins at a time, resolving with rest. When he feels the chest discomfort, he also experiences associated shortness of breath and nausea. These symptoms also subside with rest. He denies any palpitations. No dizziness or fainting spells. No abdominal pain or diarrhea.Due to ongoing symptoms, hehad a PCI performed with Dr. Marte today with placement of NANY x 1 to the ostial-proximal RCA. On my evaluation, the patient reports that he has not experienced any chest discomfort, shortness of breath, or nausea since the procedure. He has no complaints currently. Past Medical History: Diagnosis Date ??? Cholelithiasis had gallbladder removed ??? Coronary artery disease 06/2020 4 cardiac stents ??? GERD (gastroesophageal reflux disease) ??? Glaucoma ??? Hyperlipidemia ??? Hypertension ??? Seizures (CMS/HCC) (HCC) last seizure 2019/unknown cause ??? Stroke (CMS/HCC) (HCC) TIA's vs. seizures no residual, felt funny and difficulty walking ??? Type 2 diabetes mellitus (HCC) diet control no meds Past Surgical History: Procedure Laterality Date ??? CATARACT EXTRACTION ??? CHOLECYSTECTOMY ??? CORONARY ANGIOPLASTY 06/2020 4 stents ??? TOTAL KNEE ARTHROPLASTY Bilateral ??? VASCULAR SURGERY 01/16/2021 mesenteric artery angio, possible intervention Medications Prior to Admission Medication Sig Dispense Refill Last Dose ??? acetaminophen (TYLENOL) 325 mg tablet Take 650 mg by mouth 2 (two) times a day as needed for pain 07/13/2021 at Unknown time ??? ascorbic acid (VITAMIN C) 500 mg tablet,chewable Take 500 mg by mouth daily 07/12/2021 at Unknown time ??? aspirin 81 mg enteric coated tablet Take 81 mg by mouth daily 07/13/2021 at Unknown time ??? atorvastatin (LIPITOR) 40 mg tablet Take 40 mg by mouth nightly 07/13/2021 at Unknown time ??? clopidogreL (PLAVIX) 75 mg tablet Take 75 mg by mouth daily 07/13/2021 at Unknown time ??? gemfibroziL (LOPID) 600 mg tablet Take by mouth 2 (two) times a day 07/13/2021 at Unknown time ??? levETIRAcetam (KEPPRA) 1,000 mg tablet Take by mouth 2 (two) times a day 07/13/2021 at Unknown time ??? metoprolol tartrate (LOPRESSOR) 25 mg immediate release tablet Take 50 mg by mouth 2 (two) times a day 07/13/2021 at Unknown time ??? pantoprazole DR (PROTONIX) 40 mg EC tablet Take by mouth precision filer hand before breakfast 07/13/2021 at Unknown time ??? amLODIPine (NORVASC) 10 mg tablet Take 10 mg by mouth daily (Patient not taking: Reported on 03/29/2021) ??? isosorbide mononitrate ER (IMDUR) 60 mg 24 hr tablet Take 1 tablet (60 mg total) by mouth daily(Patient not taking: Reported on 03/29/2021) 30 tablet 11 No Known Allergies Social History Tobacco Use ??? Smoking status: Former Smoker Types: Cigars ??? Smokeless tobacco: Current User Types: Snuff ??? Tobacco comment: Quit 40years ago Substance Use Topics ??? Alcohol use: Not on file Family History Problem Relation Age of Onset ??? Heart disease Father Review of Systems: (unless specified above) General: No fever, chills, fatigue, or weight loss. HEENT: Denies visual changes, sore throat, hoarseness. Cardiovascular: Denies chest pain, palpitations, or lower extremity swelling. +chest discomfort Respiratory: Denies cough or wheezing. +shortness of breath Gastrointestinal: Denies vomiting, constipation, or diarrhea. Denies abdominal pain. +nausea Genitourinary: Denies dysuria, hematuria, urinary urgency, or urinary frequency. Musculoskeletal: Denies joint pain or swelling. Denies back pain. Skin: Denies skin rash. Denies easy bruising. Neurologic: Denies headache, dizziness, syncope, or seizure. Psychiatric: Denies depressive or anxious symptoms. Objective Vitals: Vitals: 07/13/212137 BP: 101/53 Pulse: 80 Resp: Temp: SpO2: 24hr Min/Max: Temp Min: 36.9 ??C (98.5 ??F) Max: 36.9 ??C (98.5 ??F) Pulse Min: 50 Max: 80 BP Min: 101/53 Max: 148/64 Resp Min: 12 Max: 23 SpO2 Min: 94 % Max: 100 % Most Recent : Vitals: 07/13/212137 BP: 101/53 Pulse: 80 Resp: Temp: SpO2: No intake/output data recorded. No intake/output data recorded. Physical exam: General Appearance: Well appearing M sitting up in bed in NAD Head: Normocephalic, without obvious abnormality, atraumatic Eyes: PERRL, EOMI, normal conjunctivae, sclerae anicteric Nose: Symmetric Throat: Normal dentition, mucus membranes moist Neck: Supple, trachea midline, no lymphadenopathy, no JVD Back: Symmetric Lungs: Clear to auscultation bilaterally, respirations unlabored Cardiovascular: Normal rate, regular rhythm. Normal S1/S2. No murmurs, gallops, or rubs. No lower extremity edema. Abdomen: Soft, nontender, nondistended, normoactive bowel sounds. Extremities: All extremities warm and well perfused without overt injury or deformity. Skin: Warm and dry. No rashes. Neurologic: Alert & oriented x 4, CNII-XII intact. Normal strength, sensation and reflexes throughout. Psychosocial: Normal affect and mood Lab/Radiology/Diagnostic Review: Recent Results (from the past 48 hour(s)) Type and screen Collection Time: 07/13/21 12:08 PM Result Value Ref Range Angelica, indirect Negative ABO Rh A Positive POCT glucose Collection Time: 07/13/21 12:19 PM Result Value Ref Range Glucose, POC 108 70 - 140 mg/dL Check Sample Collection Time: 07/13/21 12:23 PM Result Value Ref Range ABO Rh A Positive POC Activated Clotting Time, High Range Collection Time: 07/13/21 1:57 PM Result Value Ref Range ACT 180 (H) 87 - 138 sec COVID-19 Coronavirus RNA Nasopharyngeal Collection Time: 07/13/21 5:35 PM Specimen: Nasopharyngeal Result Value Ref Range COVID-19 RNA Negative Negative Left heart catheterization (07/13) A/P: Successful IVUS guided PCI of the ostial-proximal RCA using 1 NANY. Continue aspirin 81 mg indefinitely. 225mg Clopidogrel given in the culture media laboratory assistant. Continue 75mg daily for at least 1 year without interruption. Continue to optimize medical therapy and reduce atherosclerotic risk factors. ?? Further management per the medicine and cardiology teams. ?? Hamlet Marte MD 07/13/2021 ECG (07/13)- sinus bradycardia at 51 bpm. RBBB. No prior available for comparison. Assessment: Mr. Enciso is an 80 yo M with PMH of prior CVA, seizure disorder, HTN, and HLD who presents with ongoing anginal symptoms. He underwent catheterization and had DESx1 placed. He is hemodynamically stable following the procedure, though relatively hypotensive given his history. Plan: Coronary artery disease involving pilot station coronary artery of pilot station heart History of coronary artery stent placement -continue home asa/plavix Primary hypertension- relatively hypotensive currently -continue home metoprolol -hold home amlodipine and imdur Mixed hyperlipidemia -continue home gemfibrozil History of stroke- DAPT as above Seizure disorder -continue home keppra Fluids- IVF bolus PRN Electrolytes- replete PRN Nutrition- heart healthy diet DVT prophylaxis- lovenox Code status: Full Code POC- Jessica Enciso (spouse) [phone] Goals for discharge: no recurrent chest pain Anticipated LOS: <2 midnights Medical complexity / risk: High Shraddha Correa MD documented in this encounter Miscellaneous Notes * Plan of Care - Sunitha Joyner RN - 07/14/2021 12:10 PM CDT Goals: Clinical Goals for the Shift: monitor, tele, vitals and labs, plan for possible dc to home per cardiology Problem: Health Behavior: Goal: Understanding of discharge needs will improve Outcome: Adequate for Discharge Problem: Lack of Knowledge: Goal: Ability to state ways to decrease the risk of falls will improve Outcome: Adequate for Discharge Problem: Safety: Goal: Will remain free from falls Outcome: Adequate for Discharge Goal: Will remain free from injury from falls Outcome: Adequate for Discharge Goal: Will remain free from falls and injury in home environment Outcome: Adequate for Discharge Summary: Pt had scheduled cath with Dr Marte, stent to the RCA. Pt in sinus rhythm, vss, room air, up with 1 assist and walker. Right groin and right radial cath sites warm dry soft. Pt ok to dc to home per DR Roa and DR Zapata. * Plan of Care - Keyon Callaway RN - 07/14/2021 5:00 AM CDT Problem: Health Behavior: Goal: Understanding of discharge needs will improve Outcome: Progressing Problem: Lack of Knowledge: Goal: Ability to state ways to decrease the risk of falls will improve Outcome: Progressing Problem: Safety: Goal: Will remain free from falls Outcome: Progressing Goal: Will remain free from injury from falls Outcome: Progressing Goal: Will remain free from falls and injury in home environment Outcome: Progressing Goals: Clinical Goals for the Shift: monitor tele/vs/labs, monitor for signs of bleeding Summary: NSR in the 60s-70s. Pt got one stent placed in the RCA. Dr. Marte went through both R radial and R groin. R groin site was still slowly oozing; pressure was held for 10 min and oozing stopped. R elbow is also swollen. Pt states that swelling was from a fall prior. Pt A&O x4; forgetful at times. Bed alarm on. * Perioperative Nursing Note - Aura Delatorre RN - 07/13/2021 3:22 PM CDT Right groin oozing. Pressure held x15 min. Dr. Marte notified. Quickclot and sand bag applied. Will continue to monitor. * Post-Procedure Note - Hamlet Marte MD - 07/13/2021 2:56 PM CDT Images from the original note were not included. [facility] [address] [place] [address], [address] [place] [address], [id number] IVUS and PCI Procedure Report 80 year old male with known CAD s/p PCI with recurrent angina and severe ISR referred for PCI. Access:7F Right Femoral Artery and 7F Right Radial Artery Catheter:FR4 Guide Injection:Right axillary artery, Right Coronary Artery and Right Iliac Closure:TR band and Perclose Anticoagulation:[id number] Heparin, Clopidogrel and Aspirin Air Kerma:1033 mGy Fluoro time:49 min Contrast:137 ml Optiray Sedation:1mg Versed, 50 mcg fentanyl Procedural details: After risks, benefits, and alternatives to the procedure were explained to the patient, they agreedto proceed. After signing informed consent the patient was brought to the cardiac catheterization laboratory. There were prepped and draped in sterile fashion. A 7 Albanian sheath was inserted in the Right Radial Artery using the modified Seldinger technique with ultrasound guidance. The wire would not advance to the subclavian artery. Angiography demonstrated occlusion of the axillary artery. A 7 Albanian sheath was inserted in the Right Femoral Artery using the modified Seldinger technique with ultrasound guidance. We then performed IVUS and PCI of the RCA using the FR4 Guide catheter. At completion of the case a TR Band and Perclose was placed at the wrist and deployed at the femoral artery with good hemostasis achieved. The patient tolerated the procedure well with no complaints and was transferred to the floor for further monitoring and care. PCI details: Using the FR4 guide catheter, we advanced a Fielder XT wire to the distal RCA. We dilated the lesion with a 3.0 X 20mm NC balloon. The equipment dislodged and due to angulation we had difficulty passing a wire through the vessel lumen. We ultimately advanced a Mongo to the distal vessel. We dilatedwith a 4.0 X 20mm NC Balloon. IVUS showed underexpanded stents and severe atherosclerosis. We dilated with a 5.0 X 20mm NC balloon, stented the ostial-proximal RCA with a 5.0 X 32mm Megatron NANY, andpost dilated with a 6.0 X 20mm NC balloon. Repeat IVUS showed good stent apposition and expansion. Final angiography revealed no evidence of dissection or perforation. There was RAMONA 3 flow and 0% residual stenosis. A/P: Successful IVUS guided PCI of the ostial-proximal RCA using 1 NANY. Continue aspirin 81 mg indefinitely. 225mg Clopidogrel given in the culture media laboratory assistant. Continue 75mg daily for at least 1 year without interruption. Continue to optimize medical therapy and reduce atherosclerotic risk factors. Further management per the medicine and cardiology teams. Hamlet Marte MD 07/13/2021 2:59 PM * Pre-Sedation Documentation - Hamlet Marte MD - 07/13/2021 11:32 AM CDT Sedation Plan ASA 3 - Severe systemic disease Mallampati class: II. Risks, benefits, and alternatives discussed with patient. documented in this encounter Plan of Treatment Not on file documented as of this encounter Procedures Procedure Name Priority Date/Time Associated Diagnosis Comments EGFR Routine 07/14/2021 4:06 AM CDT DIFFERENTIAL AUTO Routine 07/14/2021 4:0 6 AM CDT CBC WITH AUTO DIFFERENTIAL Routine 07/14/2021 4:06 AM CDT BASIC METABOLIC PANEL Routine 07/14/2021 4:06 AM CDT COVID-19 CORONAVIRUS RNA Routine 07/13/2021 5:35 PM CDT POCT ACTIVATED CLOTTING TIME, LOW RANGE Routine 07/13/2021 4:45 PM CDT ECG 12-LEAD Routine 07/13/2021 3:30 PM CDT CORONARY OCT, 1ST VESSEL Routine 07/13/2021 3:00 PM CDT Coronary artery disease involving pilot station coronary artery of pilot station heart, unspecified whether angina present NANY MAJOR CORONARY Routine 07/13/2021 3: 00 PM CDT Coronary artery disease involving pilot station coronary artery of pilot station heart, unspecified whether angina present POCT ACTIVATED CLOTTING TIME, HIGH RANGE Routine 07/13/2021 2:54 PM CDT POCT ACTIVATED CLOTTING TIME, HIGH RANGE Routine 07/13/2021 1:57 PM CDT B CHECK SAMPLE STAT 07/13/2021 12:23 PM CDT POCT GLUCOSE DEVICE Routine 07/13/2021 1 2:19 PM CDT HC VENIPUNCTURE STAT 07/13/2021 12:08 PM CDT documented in this encounter Results * eGFR (07/14/2021 4:06 AM CDT) [facility] eGFR 86 mL/min/1. 73 m2 [facility] Comment: Interpretive Data Reference Interval Normal ?>/= [...] interpretive data was last reviewed 2020. Blood 07/14/2021 4:06 AM CDT 07/14/2021 4:37 AM CDT us Amrit Lagos MD LAB BLOOD ORDERABLES Fin al Result [facility] [address] Department [place] [address] * Differential, auto (07/14/2021 4:06 AM CDT) Neutrophil abs 6.2 1.7 - 6.5 K/cumm [facility] Imm gran abs 0.0 0.0 - 0.1 K/cumm [facility] Lymphocyte abs 0.9 0.8 - 3.3 K/cumm [facility] Monocyte abs 0.8 0.2 - 0.8 K/cumm [facility] Eosinophil abs 0.1 0.0 - 0.5 K/cumm [facility] Basophil abs 0.0 0.0 - 0.1 K/cumm [facility] Neutrophil pct 76.6 % [facility] Comment: Interpretive Data Percent cell count reference ranges are not reported, since discordance with absolute values may lead to misinterpretation of CBC data. Current Interpretive Data was last revised on 2017. Imm gran pct 0.4 % [facility] Comment: Interpretive Data Percent cell count reference ranges are not reported, since discordance with absolute values may lead to misinterpretation of CBC data. Current Interpretive Data was last revised on 2017. Lymphocyte pct 11.4 % [facility] Comment: Interpretive Data Percent cell count reference ranges are not reported, since discordance with absolute values may lead to misinterpretation of CBC data. Current Interpretive Data was last revised on 2017. Monocyte pct 9.9 % [facility] Comment: Interpretive Data Percent cell count reference ranges are not reported, since discordance with absolute values may lead to misinterpretation of CBC data. Current Interpretive Data was last revised on 2017. Eosinophil pct 1.2 % [facility] Comment: Interpretive Data Percent cell count reference ranges are not reported, since discordance with absolute values may lead to misinterpretation of CBC data. Current Interpretive Data was last revised on 2017. Basophil pct 0.5 % [facility] Comment: Interpretive Data Percent cell count reference ranges are not reported, since discordance with absolute values may lead to misinterpretation of CBC data. Current Interpretive Data was last revised on 2017. Blood 07/14/2021 4:06 AM CDT 07/14/2021 4:38 AM CDT us Amrit Lagos MD LAB BLOOD ORDERABLES Fin al Result [facility] [address] Department [place] [address] * Basic metabolic panel (07/14/2021 4:06 AM CDT) Sodium 138 135 - 145 mmol/L [facility] Potassium, pl 4.4 3.3 - 4.9 mmol/L [facility] Chloride 102 97 - 110 mmol/L [facility] CO2 23 22 - 32 mmol/L [facility] Anion gap 13 2 - 15 mmol/L [facility] BUN 14 8 - 25 mg/dL [facility] Creatinine 0.90 0.80 - 1.30 mg/dL [facility] Glucose 99 70 - 199 mg/dL [facility] Comment: Interpretive Data Fasting glucose >/= 126 [...] interpretive data was last revised 2017. Calcium 9.4 8.5 - 10.3 mg/dL [facility] Blood 07/14/2021 4:06 AM CDT 07/14/2021 4:37 AM CDT us Amrit Lagos MD LAB BLOOD ORDERABLES Fin al Result [facility] [address] Department [place] [address] * (ABNORMAL) CBC with auto differential (07/14/2021 4:06 AM CDT) WBC 8.1 3.8 - 9.9 K/cumm [facility] Hgb 9.9(L) 13.0 - 17.5 g/dL [facility] Hct 30.8(L) 38.9 - 50.3 % [facility] Plt 258 150 - 400 K/cumm [facility] MPV 9.0(L) 9.1 - 12.3 fL [facility] RBC 3.17(L) 4.30 - 5.80 M/cumm [facility] MCV 97.2(H) 81.3 - 96.4 fL [facility] MCH 31.2 27.1 - 33.3 pg [facility] MCHC 32.1(L) 32.3 - 35.7 g/dL [facility] RDW CV 13.6 11.1 - 14.9 % [facility] RDW SD 48.6(H) 35.7 - 48.1 fL [facility] NRBC abs 0.00 0.00 - 0.01 K/cumm [facility] Blood 07/14/2021 4:06 AM CDT 07/14/2021 4:38 AM CDT Amrit Lagos MD LAB BLOOD ORDERABLES Fin al Result Performing Organization Address [facility] Co de Phone Number [facility] [address] Department of [employer] [place], [place] [id number] * COVID-19 Coronavirus RNA Nasopharyngeal (07/13/2021 5:35 PM CDT) [facility] COVID-19 RNA Negative Negative [facility] Nasopharyngeal 07/13/2021 5: 35 PM CDT 07/13/2021 5:35 PM CDT Narrative [facility] - 07/13/2021 6:26 PM CDT Is the patient experiencing any symptoms consistent with COVID (eg. Fever, cough, shortness of breath)?->No What is the reason for testing?->Bed placement or semi-private room (Rapid) ?? Interpretive data: Synonyms for this test include: PCR and NAAT . ??This test is performed using the [employer] Xpert Xpress assay. This is a real-time RT-PCR test intended for the qualitative detection of nucleic acid from the SARS-CoV-2. This assay has been reviewed by the FDA for Emergency Use Authorization (EUA). The performance characteristics have been verified by the performing laboratory. Results must be considered in the clinical context and a negative result does not rule out infection. Interpretive data last revised March 23, 2020. us Antonella TSAI LAB MICROBIOLOGY - GEN ERAL ORDERABLES Final Result Performing Organization Address [facility]/ZIP Co de Phone Number [facility] [address] Department of [employer] [place], [place] [id number] * (ABNORMAL) POCT Activated clotting time, low range (07/13/2021 4:45 PM CDT) Pathologist [facility] ACT 262(H) 123 - 168 sec [facility] Blood 07/13/2021 4:45 PM CDT 07/13/2021 4:45 PM CDT us Cornelius Zapata MD LAB POCT ORDERABLES - DEV ICE Final Result Performing Organization Address City/[facility] Co de Phone Number [facility] [address] Department [place] [address] * ECG 12 lead (07/13/2021 3:30 PM CDT) 07/13/2021 3:30 PM CDT Narrative [facility] - 07/14/2021 9:22 AM CDT Vent Rate: 51 bpm RR Interval: 1161 msec NM Interval: 175 msec QRS Duration: 137 msec QT Interval: 468 msec QTC Interval: 445 msec P-R-T [place]: 17 - -42 - 67 degrees SINUS BRADYCARDIA LEFT AXIS DEVIATION RIGHT BUNDLE BRANCH BLOCK ABNORMAL ECG No Priors Available Electronically Signed By: José Gilmore us Hamlet Marte MD ECG ORDERABLES Final Result Performing Organization Address [facility] de Phone Number [facility] [employer] [facility] * NANY MAJOR CORONARY, CORONARY OCT, 1ST VESSEL (07/13/2021 3:00 PM CDT) Anatomical Region Laterality Modality X-Ray Angiograph y Narrative 07/13/2021 3:05 PM CDT [facility] ?? [address], [id number] ?? [place], [place], [address] ?? IVUS and PCI Procedure Report 80 year old male with known CAD s/p PCI with recurrent angina and severe ISR referred for PCI. Access:7F Right Femoral Artery and 7F Right Radial Artery Catheter:FR4 Guide Injection:Right axillary artery, Right Coronary Artery and Right Iliac Closure:TR band and Perclose Anticoagulation:[id number] Heparin, Clopidogrel and Aspirin Air Kerma:1033 mGy Fluoro time:49 min Contrast:137 ml Optiray Sedation:1mg Versed, 50 mcg fentanyl Procedural details: After risks, benefits, and alternatives to the procedure were explained to the patient, they agreed to proceed. ??After signing informed consent the patient was brought to the cardiac catheterization laboratory. ??There were prepped and draped in sterile fashion. A 7 Albanian sheath was inserted in the Right Radial Artery using the modified Seldinger technique with ultrasound guidance. ??The wire would not advance to the subclavian artery. Angiography demonstrated occlusion of the axillary artery. ??A 7 Albanian sheath was inserted in the Right Femoral Artery using the modified Seldinger technique with ultrasound guidance. ??We then performed IVUS and PCI of the RCA using the FR4 Guide catheter. ??At completion of the case a TR Band and Perclose was placed at the wrist and deployed at the femoral artery with good hemostasis achieved. ??The patient tolerated the procedure well with no complaints and was transferred to the floor for further monitoring and care. PCI details: Using the FR4 guide catheter, we advanced a Fielder XT wire to the distal RCA. ??We dilated the lesion with a 3.0 X 20mm NC balloon. ??The equipment dislodged and due to angulation we had difficulty passing a wire through the vessel lumen. ??We ultimately advanced a Mongo to the distal vessel. ?? We dilated with a 4.0 X 20mm NC ??Balloon. ??IVUS showed underexpanded stents and severe atherosclerosis. ??We dilated with a 5.0 X 20mm NC balloon, stented the ostial-proximal RCA with a 5.0 X 32mm Megatron NANY, and post dilated with a 6.0 X 20mm NC balloon. ??Repeat IVUS showed good stent apposition and expansion. ??Final angiography revealed no evidence of dissection or perforation. ??There was RAMONA 3 flow and 0% residual stenosis. A/P: ??Successful IVUS guided PCI of the ostial-proximal RCA using 1 NANY. ?? Continue aspirin 81 mg indefinitely. ??225mg Clopidogrel given in the culture media laboratory assistant. ??Continue 75mg daily for at least 1 year without interruption. ?? Continue to optimize medical therapy and reduce atherosclerotic risk factors. Further management per the medicine and cardiology teams. Hamlet Marte MD 07/13/2021 2:59 PM us Hamlet Marte MD CV CARDIAC CATH PROCEDURES Final Result * (ABNORMAL) POC Activated Clotting Time, High Range (07/13/2021 2:54 PM CDT) ACT 176(H) 87 - 138 sec [facility] Blood 07/13/2021 2:54 PM CDT 07/13/2021 2:54 PM CDT us Cornelius Zapata MD LAB BLOOD ORDERABLES Precious l Result [facility] [address] [facility] [employer] [place] [address] * (ABNORMAL) POC Activated Clotting Time, High Range (07/13/2021 1:57 PM CDT) ACT 180(H) 87 - 138 sec [facility] Blood 07/13/2021 1:57 PM CDT 07/13/2021 1:57 PM CDT Hamlet Marte MD LAB BLOOD ORDERABLES Final Resul t Performing Organization Address [facility] Co de Phone Number [facility] [address] [place] [place] [address] * Check Sample (07/13/2021 12:23 PM CDT) ABO Rh A Positive [facility] HCLL OTHER 07/13/2021 12:2 3 PM CDT 07/13/2021 12:29 PM CDT Hamlet Marte MD LAB BLOOD ORDERABLES Final Resul t Performing Organization Address [facility]/ZIP Co de Phone Number [facility] [address] [facility] [place] [employer] [address] * POCT glucose (07/13/2021 12:19 PM CDT) Pathologist [facility] Glucose, POC 108 70 - 140 mg/dL [facility] Comment: For Glucose values <35 mg/dl when Hematocrit is >60 mg/dl,the test may not accurately detect significant hypoglycemia,and testing in the Laboratory should be considered if clinically indicated. Blood 07/13/2021 12:1 9 PM CDT 07/13/2021 12:19 PM CDT Hamlet Marte MD LAB POCT ORDERABLES - DEVICE Fin al Result Performing Organization Address [facility] Co de Phone Number [facility] [address] Department of Laboratories [place], [place] [id number] * Type and screen (07/13/2021 12:08 PM CDT) Angelica, indirect Negative [facility] ABO Rh A Positive [facility] Blood 07/13/2021 12:0 8 PM CDT 07/13/2021 12:20 PM CDT Narrative [facility] - 07/13/2021 12:58 PM CDT Has the patient had Daratumumab or Isatuximab in the past 6 months?->Unknown Hamlet Marte MD LAB BLOOD BANK TEST ORDERABLES F inal Result Performing Organization Address [facility] de Phone Number [facility] [address] Department [place] [address] documented in this encounter Visit Diagnoses Diagnosis Coronary artery disease involving pilot station coronary artery of pilot station heart- Primary Coronary artery disease involving pilot station coronary artery of pilot station heart, unspecified whether angina present S/P drug eluting coronary stent placement Coronary artery disease involving pilot station coronary artery of pilot station heart, unspecified whether angina present documented in this encounter Admitting Diagnoses Diagnosis Coronary artery disease involving pilot station coronary artery of pilot station heart CAD (coronary artery disease) Coronary atherosclerosis of unspecified type of vessel, pilot station or graft documented in this encounter Administered Medications Inactive Administered Medications - up to 3 most recent administrations Medication Order MAR Action Action Date Dose Rate Site aspirin enteric coated tablet 81 mg 81 mg, oral, Daily, First dose on Fri07/13/21 at 2045, Do not crush, chew, cut, dissolve, open or otherwise manipulate tablet/capsule. Given 07/14/2021 9:06 AM CDT 81 mg Given 07/13/2021 9:38 PM CDT 81 mg atorvastatin (LIPITOR) tablet 40 mg 40 mg, oral, Nightly, First dose on Fri07/13/21 at 2100 Given 07/13/2021 9:38 PM CDT 40 mg clopidogreL (PLAVIX) tablet 75 mg 75 mg, oral, Daily, First dose on Fri07/13/21 at 2045 Given 07/14/2021 9:06 AM CDT 75 mg Given 07/13/2021 9:41 PM CDT 75 mg clopidogreL (PLAVIX) tablet As needed, Starting on Fri07/13/21 at 1459, Intra-Procedure (CV) Given 07/13/2021 2:59 PM CDT 225 mg fentaNYL (SUBLIMAZE) preservative free injection As needed, Starting on Fri07/13/21 at 1252, Intra-Procedure (CV) Given 07/13/2021 12:52 PM CDT 25 mcg gemfibroziL (LOPID) tablet 300 mg 300 mg, oral, 2 times daily, First dose on Fri07/14/21 at 0000 Given 07/14/2021 9:06 AM CDT 300 mg Given 07/14/2021 12:07 AM CDT 300 mg heparin 1,000 unit/mL injection As needed, Starting on Fri07/13/21 at 1259, Intra-Procedure (CV) Given 07/13/2021 2:59 PM CDT 5,000 Units Given 07/13/2021 2:00 PM CDT 4,000 Units Given 07/13/2021 1:11 PM CDT 5,000 Units heparin in 0.9% sodium chloride 1,000 units/500 mL (2 unit/mL) infusion (premix) As needed, Starting on Fri07/13/21 at 1246, Intra-Procedure (CV) Given 07/13/2021 12:47 PM CDT 500 mL Given 07/13/2021 12:47 PM CDT 500 mL Given 07/13/2021 12:46 PM CDT 500 mL ioversoL (OPTIRAY 350) injection As needed, Starting on Fri07/13/21 at 1449, Intra-Procedure (CV) Given 07/13/2021 2:49 PM CDT 137 mL levETIRAcetam (KEPPRA) tablet 1,000 mg 1,000 mg, oral, 2 times daily, First dose on Fri07/13/21 at 2100, May mix with 120 mL of enteral nutrition formula or disperse crushed tablets (500 mg tablet strength studied) in 10 mL of water, shake for 5 minutes to dissolve, and administer immediately via enteral feeding tube. Given 07/14/2021 9:06 AM CDT 1,000 mg Given 07/13/2021 9:41 PM CDT 1,000 mg lidocaine (XYLOCAINE) 20 mg/mL (2 %) injection As needed, Starting on Fri07/13/21 at 1258, Intra-Procedure (CV), Indications: Administration of Local AnesthesiaIndications:Administration of Local Anesthesia Given 07/13/2021 1:07 PM CDT 8 mL Right Groin Given 07/13/2021 12:58 PM CDT 1 mL R ight Wrist metoprolol tartrate (LOPRESSOR) immediate release tablet 50 mg 50 mg, oral, 2 times daily, First dose on Fri07/13/21 at 2100 Given 07/14/2021 9:06 AM CDT 50 mg Given 07/13/2021 9:38 PM CDT 50 mg midazolam (VERSED) 1 mg/mL preservative free injection Administer over 2 Minutes, As needed, Starting on Fri07/13/21 at 1252, Intra-Procedure (CV) Given 07/13/2021 12:52 PM CDT 1 mg niCARdipine (CARDENE) 500 mcg/5 mL in sodium chloride 0.9% (premix) As needed, Starting on Fri07/13/21 at 1259, Intra-Procedure (CV) Given 07/13/2021 12:59 PM CDT 200 mcg Right Arm nitroglycerin injection 100 mcg/mL in D5W 10 mL As needed, Starting on Fri07/13/21 at 1259, Intra-Procedure (CV) Given 07/13/2021 12:59 PM CDT 200 mcg Right Arm pantoprazole DR (PROTONIX) extended release tablet 20 mg 20 mg, oral, Daily (early AM), First dose on Fri07/14/21 at 0600, Do not crush, chew, cut, dissolve, open or otherwise manipulate tablet/capsule., Indications: Stress Ulcer ProphylaxisIndications:Stress Ulcer Prophylaxis Given 07/14/2021 6:25 AM CDT 20 mg sodium chloride 0.9% infusion 15 mL/hr, intravenous, Continuous, Starting on Fri07/13/21 at 1230, Pre-Procedure (CV) documented in this encounter Active and Recently Administered Medications Times are shown in CDT. Scheduled Medication Order 07/12/2021 07/13/2021 07/14/2021 aspirin enteric coated tablet 81 mg 81 mg, oral, Daily, First dose on Fri07/13/21 at 2045, Do not crush, chew, cut, dissolve, open or otherwise manipulate tablet/capsule. 2137 (Given - Provider: Keyon Callaway RN) 09 (Given - Provider: Sunitha Joyner RN) atorvastatin (LIPITOR) tablet 40 mg 40 mg, oral, Nightly, First dose on Fri07/13/21 at 2100 2137 (Given - Provider: Keyon Callaway RN) clopidogreL (PLAVIX) tablet 75 mg 75 mg, oral, Daily, First dose on Fri07/13/21 at 5 2140 (Given - Provider: Keyon Callaway RN) 09 (Given - Provider: Sunitha Joyner RN) gemfibroziL (LOPID) tablet 300 mg 300 mg, oral, 2 times daily, First dose on Fri07/14/21 at 0000 0007 (Given - Provid er: Keyon Callaway RN)09 (Given - Provider: Sunitha Joyner RN) levETIRAcetam (KEPPRA) tablet 1,000 mg 1,000 mg, oral, 2 times daily, First dose on Fri07/13/21 at 2100, May mix with 120 mL of enteral nutrition formula or disperse crushed tablets (500 mg tablet strength studied) in 10 mL of water, shake for 5 minutes to dissolve, and administer immediately via enteral feeding tube. 2140 (Given - Provider: Keyon Callaway RN) 09 (Given - Provider: Sunitha Joyner RN) metoprolol tartrate (LOPRESSOR) immediate release tablet 50 mg 50 mg, oral, 2 times daily, First dose on Fri07/13/21 at 2100 2138 (Given - Provider: Keyon Callaway, RN) 0906 (Given - Provider: Sunitha Joyner, JUAN) pantoprazole DR (PROTONIX) extended release tablet 20 mg 20 mg, oral, Daily (early AM), First dose on Fri07/14/21 at 0600, Do not crush, chew, cut, dissolve, open or otherwise manipulate tablet/capsule., Indications: Stress Ulcer Prophylaxis 0625 (Given - Provid er: Alaina Pelletier RN) Continuous Medication Order 07/12/2021 07/13/2021 07/14/2021 sodium chloride 0.9% infusion 15 mL/hr, intravenous, Continuous, Starting on Fri07/13/21 at 1230, Pre-Procedure (CV) 1230 (Due) PRN Medication Order 07/12/2021 07/13/2021 07/14/2021 clopidogreL (PLAVIX) tablet (CANCELED) As needed, Starting on Fri07/13/21 at 1459, Intra-Procedure (CV) 1459 (Given - Provider: Mikaela Altamirano RN) fentaNYL (SUBLIMAZE) preservative free injection (CANCELED) As needed, Starting on Fri07/13/21 at 1252, Intra-Procedure (CV) 1252 (Given - Provider: Mikaela Altamirano RN) heparin 1,000 unit/mL injection (CANCELED) As needed, Starting on Fri07/13/21 at 1259, Intra-Procedure (CV) 1259 (Given - Provider: Hamlet Marte MD)1311 (Given - Provider: Derek Altamirano, JUAN)1400 (Given - Provider: Derek Altamirano, JUAN)1459 (Given - Provider: Derek Altamirano, JUAN) heparin in 0.9% sodium chloride 1,000 units/500 mL (2 unit/mL) infusion (premix) (CANCELED) As needed, Starting on Fri07/13/21 at 1246, Intra-Procedure (CV) 1246 (Given - Provider: Hamlet Marte MD - Comment: Table and Acist)1246 (Given - Provider: Hamlet Marte MD - Comment: Table and Acist)1247 (Given - Provider: Hamlet Marte MD - Comment: Table and Acist)1247 (Given - Provider: Hamlet Marte MD - Comment: Table and Acist) ioversoL (OPTIRAY 350) injection (CANCELED) As needed, Starting on Fri07/13/21 at 1449, Intra-Procedure (CV) 1449 (Given - Provider: Hamlet Marte MD) lidocaine (XYLOCAINE) 20 mg/mL (2 %) injection (CANCELED) As needed, Starting on Fri07/13/21 at 1258, Intra-Procedure (CV), Indications: Administration of Local Anesthesia 1258 (Given - Provider: Hamlet Marte MD)1307 (Given - Provider: Hamlet Marte MD) midazolam (VERSED) 1 mg/mL preservative free injection (CANCELED) Administer over 2 Minutes, As needed, Starting on Fri07/13/21 at 1252, Intra-Procedure (CV) 1252 (Given - Provider: Mikaela Altamirano RN) niCARdipine (CARDENE) 500 mcg/5 mL in sodium chloride 0.9% (premix) (CANCELED) As needed, Starting on Fri07/13/21 at 1259, Intra-Procedure (CV) 1259 (Given - Provider: Hamlet Marte MD) nitroglycerin injection 100 mcg/mL in D5W 10 mL (CANCELED) As needed, Starting on Fri07/13/21 at 1259, Intra-Procedure (CV) 1259 (Given - Provider: Hamlet Marte MD) documented in this encounter Orders Medications Ordered That Arvin ht Not Have Been Administered Count Last Ordered Date First Ordered Date sodium chloride 0.9% infusion 2 07/13/2021 Nursing Count Last Ordered Date First Orde red Date TELEMETRY MONITORING 2 07/13/2021 Admission Count Last Ordered Date First Orde red Date INITIATE OUTPATIENT IN A BED 1 07/13/2021 Transfer Count Last Ordered Date First Orde red Date TRANSFER PATIENT TO NEW UNIT 1 07/13/2021 Discharge Count Last Ordered Date First Orde red Date DISCHARGE PATIENT 1 07/14/2021 CORE MEASURES Count Last Ordered Date First Ord ered Date REASON FOR NO VTE PROPHYLAXIS AT ADMISSION 2 07/13/2021 documented in this encounter Care Teams Manager Internet Relationship Specialty Start Date End Date David Ramon MD [address] [place] [id number] PCP - General Family Medicine 01/09/21 documented as of this encounter
--- OUTSIDE RECORDS SUMMARY | 2024-02-29 05:23 | XMS_ITS | Encounter Summary ---
Author Organization [facility] Address [address] [place] [address] Care Team Providers Care Soda Dialyzer Name Role Phone David Ramon MD Primary Care Provider [phone] Encounter Details Date Type Department Care Team (Late st Contact Info) Description 06/19/2021 Telephone [facility] Cardiology [address] [facility] [address] [facility] [address] [place] [address] Aung Rick MD [address] [facility] [address] [place] [address] Social History Tobacco Use Types [...] encounter Miscellaneous Notes * Telephone Encounter - Elisabeth Kerns RN - 06/19/2021 2:20 PM CDT Spoke with pt -she said [employer] needed more information regarding procedure pt had last week with[facility] at . None of the records have been uploaded yet into pt chart. Told her I would forward Alina for assistance. Will forward to Ana Paula Rodrigues. * Telephone Encounter - Josie Daisy Robertson - 06/19/2021 1:44 PM CDT Pt spouse Jessica requesting a call in regard to pt proc with [facility] last week,states ins needs more info about it.Please advise.Thank you Contact:[phone] documented in this encounter Plan of Treatment Not on file documented as of this encounter Visit Diagnoses Not on filedocumented in this encounter Care Teams Soda Dialyzer Relationship Specialty Start Date End Date David Ramon MD [address] [place] [id number] PCP - General Family Medicine 01/09/21 documented as of this encounter
--- OUTSIDE RECORDS SUMMARY | 2024-02-29 05:23 | XMS_ITS | Encounter Summary ---
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) [K55.1] Procedures MN SLCTV CATHJ EA 1ST ORD ABDL PEL/LXTR ART BRNCH CHG ANGIO VISCERAL SELECTV/SUBSELEC MESENTERIC ARTERY ANGIOGRAM POSSIBLE INTERVENTION Referral ID Status Reason Start Date Expiration Date Visits Re quested Visits Authorized [id number] 1 1 Encounter Details Date Type Department Care Team (Latest Contact Info) Description 01/16/2021 7:45 AM STANDARD MACHINE STITCHER - 01/16/2021 3:05 PM STANDARD MACHINE STITCHER Hospital Encounter [facility] Cardiac Remediation Bioanal[employer] Consultant [address] [place] [address] Rosalva Simmons MD [address] [place] [id number] Superior mesenteric artery stenosis (CMS/HCC) (HCC) Discharge Disposition: Discharge to home or self [...] Sign Reading Time Taken Comments Blood Pressure 118/68 01/16/2021 2:00 PM STANDARD MACHINE STITCHER Pulse 70 01/16/2021 2:00 PM STANDARD MACHINE STITCHER Temperature - - Respiratory Rate 16 01/16/2021 2:00 PM STANDARD MACHINE STITCHER Oxygen Saturation 98% 01/16/2021 2:00 PM STANDARD MACHINE STITCHER Inhaled Oxygen Concentration - - Weight 72.4 kg (159 lb 9.8 oz) 01/16/2021 8:23 A M STANDARD MACHINE STITCHER Height - - Body Mass Index 22.9 01/08/2021 1:33 PM STANDARD MACHINE STITCHER documented in this encounter Discharge Instructions * Discharge Instructions* Rosalva Simmons MD - 01/16/2021 11:09 AM STANDARD MACHINE STITCHER Ok to walk and go up stairs. Ok to shower tomorrow. No heavy lifting or strenuous activity for 48 hours. Please resume all home medications and ok for tylenol for pain. Please follow up with Dr. Simmons in 2 weeks in her office and please call for an appointment. [phone] Angiogram WHAT YOU NEED TO KNOW: An [...] before you use these products. ?? 2017 [employer] Information is for End User's use only and may not be sold, redistributed or otherwise used for commercial purposes. All illustrations and images included in CareNotes?? are the copyrighted property of [employer]. or [employer]. The above information is an community development aide only. It is not intended as medical advice for individual conditions or treatments. Talk to your doctor, nurse or pharmacist before following any medical regimen to see if it is safe and effective for you. DARD MACHINE STITCHER documented in this encounter Medications at Time [...] for mesenteric artery angiogram with possible intervention. DARD MACHINE STITCHER documented in this encounter Miscellaneous Notes * [...] the patient. Patient was brought to the roving tester laboratory suite and placed supine on the table. [...] The sheath was upsized to a 5 Liberian sheath and a Mod hook catheter was placed into the aorta. The II was taken into steep [place] and angiogram was obtained. The SMA was visualized and decision was made to treat. The Glidewire Advantage was taken back into the aorta and the catheter was removed. The sheath was upsized to a 6 Liberian eASICumo destination sheath. 7000 unitsof heparin was given [...] Simmons MD Date: 01/16/2021 Time: 12:16 PM DARD MACHINE STITCHER * Pre-Procedure Instructions - Marisabel Machuca RN - 01/12/2021 1:10 PM STANDARD MACHINE STITCHER We are pleased that you and your doctor have chosen [facility] ED for your surgery. We hope that the following information will help make your visit a pleasant one. Surgery Date: 01/16/2021 Arrive 0800 at [facility] Bring vaccination card Before your surgery: [...] of surgery ?? Use no make-up, nail beninese, lotions, oils or powders on your skin. [...] posted at the top of the page. DARD MACHINE STITCHER documented in this encounter Plan of Treatment Not on file documented as of this encounter Procedures Procedure Name Priority Date/Time Associated Diagnosis Comments OPEN/PERC PLMN STENT Routine 01/16/2021 11:12 AM STANDARD MACHINE STITCHER Superior mesenteric artery stenosis (CMS/HCC) (HCC) AORTOGRAM ABDOMINAL S&I Routine 01/16/2021 11:12 AM STANDARD MACHINE STITCHER Superior mesenteric artery stenosis (CMS/HCC) (HCC) POCT ACTIVATED CLOTTING TIME, LOW RANGE Routine 01/16/2021 10:45 AM STANDARD MACHINE STITCHER EGFR STAT 01/16/2021 8:12 AM STANDARD MACHINE STITCHER DIFFERENTIAL AUTO STAT 01/16/2021 8:1 2 AM STANDARD MACHINE STITCHER CBC WITH AUTO DIFFERENTIAL STAT 01/16/2021 8:12 AM STANDARD MACHINE STITCHER APTT STAT 01/16/2021 8:12 AM STANDARD MACHINE STITCHER PROTIME-INR STAT 01/16/2021 8:12 AM STANDARD MACHINE STITCHER BASIC METABOLIC PANEL STAT 01/16/2021 8:12 AM STANDARD MACHINE STITCHER documented in this encounter Results * AORTOGRAM ABDOMINAL S&I, OPEN/PERC PLMN STENT (01/16/2021 11:12 AM STANDARD MACHINE STITCHER) Anatomical Region Laterality Modality X-Ray Angiograph y Narrative 01/16/2021 11:14 AM STANDARD MACHINE STITCHER Please see OpNote for result. us Rosalva Simmons MD CV CARDIAC CATH PROCEDUR ES Final Result * (ABNORMAL) POCT Activated clotting time, low range (01/16/2021 10:45 AM STANDARD MACHINE STITCHER) ACT 284(H) 123 - 168 sec STEPHEN POC Performer [id number] [facility] POC Device Number [id number] [facility] Blood 01/16/2021 10:4 5 AM STANDARD MACHINE STITCHER 01/16/2021 10:45 AM STANDARD MACHINE STITCHER us Rosalva Simmons MD LAB POCT ORDERABLES - DE VICE Final Result [facility] [address] [facility] Department [place] [address] * eGFR (01/16/2021 8:12 AM STANDARD MACHINE STITCHER) eGFR 80 mL/min/1.7 3 m2 [facility] Comment: Interpretive Data Reference Interval Normal ?>/= [...] last reviewed 2020 Blood 01/16/2021 8:12 AM STANDARD MACHINE STITCHER 01/16/2021 8:15 AM STANDARD MACHINE STITCHER us Rosalva Simmons MD LAB BLOOD ORDERABLES Fin al Result STEPHEN [address] [facility] Department [place] [address] * Differential, auto (01/16/2021 8:12 AM STANDARD MACHINE STITCHER) Neutrophil abs 4.6 1.7 - 6.5 K/cumm [facility] Imm gran abs 0.0 0.0 - 0.1 K/cumm [facility] Lymphocyte abs 1.3 0.8 - 3.3 K/cumm [facility] Monocyte abs 0.6 0.2 - 0.8 K/cumm [facility] Eosinophil abs 0.1 0.0 - 0.5 K/cumm [facility] Basophil abs 0.1 0.0 - 0.1 K/cumm [facility] Neutrophil pct 67.9 % [facility] Comment: Interpretive Data Percent cell count reference ranges are not reported, since discordance with absolute values may lead to misinterpretation of CBC data. Current Interpretive Data was last revised on 2017. Imm gran pct 0.6 % [facility] Comment: Interpretive Data Percent cell count reference ranges are not reported, since discordance with absolute values may lead to misinterpretation of CBC data. Current Interpretive Data was last revised on 2017. Lymphocyte pct 19.6 % [facility] Comment: Interpretive Data Percent cell count reference ranges are not reported, since discordance with absolute values may lead to misinterpretation of CBC data. Current Interpretive Data was last revised on 2017. Monocyte pct 9.1 % [facility] Comment: Interpretive Data Percent cell count reference ranges are not reported, since discordance with absolute values may lead to misinterpretation of CBC data. Current Interpretive Data was last revised on 2017. Eosinophil pct 2.1 % [facility] Comment: Interpretive Data Percent cell count reference ranges are not reported, since discordance with absolute values may lead to misinterpretation of CBC data. Current Interpretive Data was last revised on 2017. Basophil pct 0.7 % [facility] Comment: Interpretive Data Percent cell count reference ranges are not reported, since discordance with absolute values may lead to misinterpretation of CBC data. Current Interpretive Data was last revised on 2017. Blood 01/16/2021 8:12 AM STANDARD MACHINE STITCHER 01/16/2021 8:15 AM STANDARD MACHINE STITCHER Rosalva Simmons MD LAB BLOOD ORDERABLES Fin al Result Performing Organization Address [facility] Co de Phone Number [place] [phone] [facility] [employer] [place] [address] * (ABNORMAL) CBC with auto differential (01/16/2021 8:12 AM STANDARD MACHINE STITCHER) WBC 6.7 3.8 - 9.9 K/cumm [facility] Hgb 14.4 13.0 - 17.5 g/dL [facility] Hct 44.1 38.9 - 50.3 % [facility] Plt 242 150 - 400 K/cumm [facility] MPV 8.8(L) 9.1 - 12.3 fL [facility] RBC 4.77 4.30 - 5.80 M/cumm [facility] MCV 92.5 81.3 - 96.4 fL [facility] MCH 30.2 27.1 - 33.3 pg [facility] MCHC 32.7 32.3 - 35.7 g/dL [facility] RDW CV 12.9 11.1 - 14.9 % [facility] RDW SD 43.7 35.7 - 48.1 fL [facility] NRBC abs 0.00 0.00 - 0.01 K/cumm [facility] Blood 01/16/2021 8:12 AM STANDARD MACHINE STITCHER 01/16/2021 8:15 AM STANDARD MACHINE STITCHER Narrative [facility] - 01/16/2021 8:21 AM STANDARD MACHINE STITCHER If most recent labs were drawn prior to 4 AM, draw only prior to initiating procedure. Rosalva Simmons MD LAB BLOOD ORDERABLES Fin al Result Performing Organization Address [facility] Co de Phone Number [facility] [address] [place] [address] [place] [address] * (ABNORMAL) Basic metabolic panel (01/16/2021 8:12 AM STANDARD MACHINE STITCHER) Sodium 133(L) 135 - 145 mmol/L [facility] Potassium, pl 4.5 3.3 - 4.9 mmol/L [facility] Chloride 98 97 - 110 mmol/L [facility] CO2 26 22 - 32 mmol/L [facility] Anion gap 9 2 - 15 mmol/L [facility] BUN 13 8 - 25 mg/dL [facility] Creatinine 0.90 0.80 - 1.30 mg/dL [facility] Glucose 94 70 - 199 mg/dL [facility] Comment: Interpretive Data Fasting glucose >/= [...] 2017. Calcium 10.1 8.5 - 10.3 mg/dL [facility] Blood 01/16/2021 8:12 AM STANDARD MACHINE STITCHER 01/16/2021 8:15 AM STANDARD MACHINE STITCHER Rosalva Simmons MD LAB BLOOD ORDERABLES Fin al Result [address] [place] [address] * aPTT (01/16/2021 8:12 AM STANDARD MACHINE STITCHER) Pathologist [facility] aPTT 27 22 - 37 sec [facility] Comment: Interpretive data aPTT test has not been evaluated for monitoring heparin therapy. The anti-Xa is the preferred test. Current interpretive data was last revised on 2019. Blood 01/16/2021 8:12 AM STANDARD MACHINE STITCHER 01/16/2021 8:15 AM STANDARD MACHINE STITCHER Rosalva Simmons MD LAB BLOOD ORDERABLES Fin al Result Performing Organization Address [facility] Co de Phone Number STEPHEN [address] [employer] [place] [address] * Protime-INR (01/16/2021 8:12 AM STANDARD MACHINE STITCHER) PT 12.3 12.0 - 14.6 sec [facility] INR 0.9 [facility] Comment: Ref Range High Interpretive data Oral anticoagulant therapeutic ranges: Venous thromboembolism prophylaxis or treatment: 2.0-3.0 CARDIOLOGY Standard range: 2.0-3.0 High-intensity range: 2.5-3.5 Refer to indication-specific guidelines for appropriate target ranges for prosthetic heart valve replacement. Current interpretive data was last revised on 2019. Blood 01/16/2021 8:12 AM STANDARD MACHINE STITCHER 01/16/2021 8:15 AM STANDARD MACHINE STITCHER Rosalva Simmons MD LAB BLOOD ORDERABLES Fin al Result Performing Organization Address [facility] Co de Phone Number STEPHEN [address] [employer] [place] [address] documented in this encounter Visit Diagnoses Diagnosis [...] MAR Action Action Date Dose Rate Site sodium chloride 0.9% flush 0.5-20 mL 0.5-20 [...] Pre-Procedure (CV) Rate/Dose Change 01/16/2021 12:54 PM STANDARD MACHINE STITCHER 75 mL/hr 75 mL/hr New Bag 01/16/2021 8:15 AM STANDARD MACHINE STITCHER 100 mL/hr 100 mL/hr sodium chloride 0.9% infusion 75 mL/hr, intravenous, Continuous, Starting on Fri01/16/21 at 1315, Phase I & Post-op Floor, May discontinue when tolerating PO (more than 250 mL in 8 hours) documented in this encounter Active and Recently Administered Medications Times are shown in STANDARD MACHINE STITCHER. Scheduled Medication Order 01/14/2021 01/15/2021 01/16/2021 sodium [...] Count Last Ordered Date First Ordered Date fentaNYL (SUBLIMAZE) preserv ative free injection 1 01/16/2021 heparin 1,000 unit/mL injection 1 iodixanoL (VISIPAQUE) 320 mg iodine/mL injection 1 01/16/2021 lidocaine (XYLOCAINE) 10 mg/ mL (1 %) injection 1 01/16/2021 midazolam (VERSED) 1 mg/mL injection 1 12/20 protamine injection 1 01/16/2021 sodium chloride 0.9% flush 0.5-20 mL 3 12/20 sodium chloride 0.9% infusion 1 01/16/2021 Discharge Count Last Ordered Date First Orde red Date DISCHARGE PATIENT 1 01/16/2021 CORE MEASURES Count Last Ordered Date First Ord ered Date REASON FOR NO VTE PROPHYLAXIS AT ADMISSION 1 01/16/2021 documented in this encounter Care Teams Auto Bumper Mechanic Relationship Specialty Start Date End Date David Ramon MD [address] [place] [id number] PCP - General Family Medicine 01/09/21 documented as of this encounter
--- OUTSIDE RECORDS SUMMARY | 2024-02-29 05:23 | XMS_ITS | Encounter Summary ---
Author Organization [facility] Address [address] [place] [address] Care Team Providers Care Cigarette Roller Name Role Phone David Ramon MD Primary Care Provider [phone] Reason for Referral * Consultation (Routine) - Closed Specialty Diagnoses / Procedures Referred By Contac t Referred To Contact Cardiology Diagnoses Coronary artery disease involving [place] coronary artery of [place] heart without angina pectoris Bronwyn Claros NP [address] [facility] [address] [place] [address] Phone: tel: fax: Hamlet Marte MD Phone: tel: fax: Referral ID Status Reason Start Date Expiration Date V isits Requested Visits Authorized [id number] Closed Specialty Services Required 06/13/2021 07/13/2022 1 1 Question Answer Please select the performing region: [facility] (All Locations) [167] To provider: HAMLET MARTE [[id number]] # of visits: 1 Comments Complex PCI, LHC images from [facility] in [facility] Encounter Details Date Type Department Care Team (Late st Contact Info) Description 06/13/2021 Orders Only [facility] Cardiology [address] [facility] [address] [place] [address] Bronwyn Claros NP [address] [place] [address] Coronary artery disease involving [place] coronary artery of [place] heart without angina pectoris (Primary Dx) Social History Tobacco Use Types Packs/Day Years [...] as of this encounter Plan of Treatment Scheduled Referrals Name Type Priority Associated Diagnoses Order Schedule Ambulatory referral to Cardiology Outpatient Referral Routine Coronary artery disease involving [place] coronary artery of [place] heart without angina pectoris Expected: 06/27/2021 (Approximate), Expires: 06/13/2022 documented as of this encounter Visit Diagnoses Diagnosis Coronary artery disease involving [place] coronary artery of [place] heart without angina pectoris- Primary documented in this encounter Care Teams Cigarette Roller Relationship Specialty Start Date End Date David Ramon MD [address] [place] [id number] PCP - General Family Medicine 01/09/21 documented as of this encounter
--- OUTSIDE RECORDS SUMMARY | 2024-02-29 05:23 | XMS_ITS | Encounter Summary ---
Author Organization [facility] Address [address] 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) (Primary Dx); History of coronary artery stent [...] Sign Reading Time Taken Comments Blood Pressure 120/70 03/29/2021 10:50 AM CODING DIRECTOR Pulse 70 03/29/2021 10:50 AM CODING DIRECTOR Temperature - - Respiratory Rate - - Oxygen Saturation 97% 03/29/2021 10:50 AM CODING DIRECTOR Inhaled Oxygen Concentration - - Weight 71.7 kg (158 lb) 03/29/2021 10:50 AM CODING DIRECTOR Height 177.8 cm (5' 10 ) 03/29/2021 10:50 AM CODING DIRECTOR Body Mass Index 22.67 03/29/2021 10:50 AM CODING DIRECTOR documented in this encounter Progress Notes * Aung Rick MD - 03/29/2021 10:45 AM CST [facility] FOLLOW UP 03/29/2021 Ramiro Enciso is a 80 y.o. male who presents for follow up of chest pain. This is a patient who has not been found to have coronary artery disease previously. I saw him a couple of times in the hospital at [place] in August of 2020 and again in [...] was referred to a vascular surgeon in [place] who performed a stent procedure on that with improvement in those symptoms. He presents today for scheduled 3 month [...] Ramon as his new primary care physician. REVIEW OF SYSTEMS General ROS: negative for [...] 40 mg EC tablet, Take by mouth photographic equipment technician before breakfast, Disp:, Rfl: ??? amLODIPine (NORVASC) 10 mg tablet, Take 10 mg by mouth daily (Patient not taking: Reported on 03/29/2021), Disp: , Rfl: ??? isosorbide mononitrate ER (IMDUR) 60 mg 24 hr tablet, Take 1 tablet (60 mg total) by mouth daily (Patient not taking: Reported on 03/29/2021), Disp: 30 tablet, Rfl: 11 LABS AND OTHER DIAGNOSTIC TESTS No results found for: CHOL No results found for: HDL No results found for: LDLCALC No results found for: TRIG No results found for: CHOLHDL Lab Results Component Value Date WBC 6.7 01/16/2021 HGB 14.4 01/16/2021 HCT 44.1 01/16/2021 MCV 92.5 01/16/2021 No lab exists for component: LABALBU PHYSICAL EXAM Vitals BP 120/70 (BP Location: Right arm, Patient Position: Sitting) Pulse 70 Ht 177.8 cm (5' 10 ) Wt 71.7 kg (158 lb) SpO2 97% BMI 22.67 kg/m?? Physical Examination: General appearance - alert, [...] orders for this visit: Coronary artery disease of [place] artery of [place] heart with stable angina pectoris (CMS/HCC) ([facility]) History of coronary artery stent placement PLAN/RECOMMENDATIONS No change in medical regimen. I will see this patient in a p.r.n. fashion since we have really not found a specific cardiac diagnosis that merits ongoing follow-up in our office. 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
--- OUTSIDE RECORDS SUMMARY | 2024-02-29 05:23 | XMS_ITS | Referral Summary ---
Author Organization [facility] [address] Address [address] [place] [address] Care Team Providers Care Asw/Asuw Tactical Air Controller Name Role Phone David Ramon MD Primary Care Provider [phone] Allergies No known active allergies Medications pantoprazole DR (PROTONIX) 40 mg EC tablet Take by mouth 2 (two) times a day 12/16/2020 Active levETIRAcetam (KEPPRA) 1,000 mg tablet Take by mouth 2 (two) times a day 12/18/2020 Active gemfibroziL (LOPID) 600 mg tablet Take by mouth 2 (two) times a day 12/16/2020 Active aspirin 81 mg enteric coated tablet Take 1 tablet (81 mg total) by mouth daily Active clopidogreL (PLAVIX) 75 mg tablet Take 1 tablet (75 mg total) by mouth daily Active atorvastatin (LIPITOR) 40 mg tablet Take 1 tablet (40 mg total) by mouth nightly Active acetaminophen (TYLENOL) 325 mg tablet Take 2 tablets (650 mg total) by mouth 2 (two) times a day as needed for pain Active ascorbic acid (VITAMIN C) 500 mg tablet,chewable Take 1 tablet/chew tab (500 mg total) by mouth daily Active metoprolol XL (TOPROL-XL) 50 mg extended release tablet Take 1 tablet (50 mg total) by mouth daily 90 tablet 3 05/07/2022 Active nitroglycerin (NITROSTAT) 0.4 mg SL tablet DISSOLVE ONE TABLET UNDER THE TONGUE EVERY 5 MINUTES NEEDED FOR CHEST PAIN. DO NOT EXCEED A TOTAL OF 3 DOSES IN 15 MINUTES 25 tablet 10/03/2022 Active amiodarone (PACERONE) 200 mg tablet Take 1 tablet (200 mg total) by mouth daily 30 tablet 11 11/21/2023 Active Active Problems Problem Noted Date Diagnosed Date Near syncope 11/07/2022 Angina pectoris, unspecified 05/07/2022 History of stroke 07/13/2021 Seizure disorder (CMS/HCC) 07/13/2021 Mixed hyperlipidemia 02/01/2021 Assessment & Plan (03/07/2021 1:56 PM FINISHING LAB TECHNICIAN): Followed by his PCP chronic and stable. I recommend that he continues to take his Lipitor as cholesterol lowering medication will help keep the stent patent. Assessment & Plan (02/01/2021 11:28 AM FINISHING LAB TECHNICIAN): Chronic and stable. Patient was encouraged to make sure he continues his Lipitor as keeping on his cholesterol medication will help with the patency of his stent. I discussed with him that if he continues to smoke, have elevated blood pressure that is uncontrolled or elevated cholesterol that is uncontrolled than this stent can occlude. He understands. 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 He has done well since that time and is able to tolerate food without any abdominal pain and no more weight loss. I will have him follow up in 3 months with a repeat mesenteric artery duplex. Assessment & Plan (02/01/2021 11:31 AM FINISHING LAB TECHNICIAN): Patient had SMA stenosis and underwent stent placement. He has done well since the placement of the stent as he is no longer having any pain and able to eat what he would like to eat. I will have him follow up in 1 month with a mesenteric artery duplex for stent surveillance. 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 Plan will be for a mesenteric artery angiogram with possible intervention. This was discussed with him and his . I discussed with them the risks, benefits and alternatives of the procedure which include but are not limited to: Bleeding, infection, damage to the vein, artery or nerve, further need for surgery to repair the artery, potential future surgery or need for more procedures, risk of kidney injury, risk of anesthesia, risk of potential stent occlusion which could result in a major operation, hospitalization and or . They said that they understand and are willing to proceed. Assessment & Plan (12/29/2020 9:58 AM FINISHING LAB TECHNICIAN): Patient does have SMA stenosis seen on the CT scan with weight loss and food fear. Plan will be to have him get an aortic duplex and follow-up in 2 weeks. I discussed with him that he will likely need an angiogram with stent placement and he says he understands. He will follow up in 2 weeks. Tobacco abuse 12/29/2020 Assessment & Plan (03/07/2021 1:57 PM FINISHING LAB TECHNICIAN): Patient is currently continuing to smoke but says he is cutting back. More than 3 minutes was spent discussing with him about the over hot benefits of smoking cessation. I discussed with him that there are things that can help him quit smoking. I told him that this stent will shut down if he continues to smoke. He says that he does understand and is going to continue cutting back to quit. Assessment & Plan (02/01/2021 11:31 AM FINISHING LAB TECHNICIAN): Patient is continuing to use tobacco and [...] bowel damage or resection or even . Assessment & Plan (01/09/2021 11:25 AM FINISHING LAB TECHNICIAN): We once again discussed smoking cessation. He is currently still vaping with nicotine. More than 3 minutes was once again discussed with him about the nicotine effects on the blood vessels and how smoking cessation would be the best thing for him in the long run. I also discussed with him that if we placed a stent and he continues smoking that there is a knee even higher risk that the stent will shut down. At that time he could potentially lose some or all of his bowel or even his life if this stent shut down. Assessment & Plan (12/29/2020 9:57 AM FINISHING LAB TECHNICIAN): Patient used to smoke cigarettes and now vapes with nicotine. It was discussed with him for more than 3 minutes about the effects of nicotine on the blood vessels and how he needs to quit smoking any form of nicotine. We discussed that there are many options to help him quit and get off of nicotine altogether. He says he understands and will try to cut back even more at this time. Primary hypertension 12/29/2020 Assessment & Plan (03/07/2021 1:56 PM FINISHING LAB TECHNICIAN): Followed by his PCP and chronic and stable. I recommend he continue his Norvasc and metoprolol. Good blood pressure control will also help with patency of his stent. He also is going to see his primary care doctor next week and will likely need to see his finisher special stocks given his chest pain. Assessment & Plan (02/01/2021 11:29 AM FINISHING LAB TECHNICIAN): Chronic and stable and followed by his PCP. Patient will continue his Norvasc and metoprolol. Again good blood pressure control will help with the patency of his stent. Assessment & Plan (01/09/2021 11:24 AM FINISHING LAB TECHNICIAN): Followed by his PCP and controlled on his current medications. Assessment & Plan (12/29/2020 9:57 AM FINISHING LAB TECHNICIAN): Followed by his PCP and controlled on his current medications. Coronary artery disease [place] coronary artery of [place] heart 12/18/2020 Assessment & Plan (03/07/2021 1:58 PM FINISHING LAB TECHNICIAN): Patient underwent cardiac stenting previously. He had [...] needs to make an appointment with his finisher special stocks as well. Assessment & Plan (12/29/2020 9:58 AM FINISHING LAB TECHNICIAN): Patient has coronary artery disease and underwent stent placement. History of coronary artery stent placement 06/17 Assessment & Plan (01/09/2021 11:26 AM FINISHING LAB TECHNICIAN): Patient has stents placed before and has not had any chest pain or issues since that time. S/P drug eluting coronary stent placement Resolved Problems Problem Noted Date Diagnosed Date Resolved Date CAD (coronary artery disease) 07/13/2021 07/13/2021 Social History Tobacco Use Types Packs/Day Years Used Date Smoking Tobacco: Former Cigars Smokeless Tobacco: Current Snuff Tobacco Cessation:Ready to Q uit: Not Asked; Counseling Given: Not Answered Comments:Quit 40years ago AUDIT-C Answer Date Recorded [...] on file Sexual Orientation Not on file Last Filed Vital Signs Vital Sign Reading Time Taken Comments Blood Pressure 112/70 11/11/2023 12:01 PM CDT Pulse 57 11/11/2023 12:01 PM CDT Temperature 37.2 ??C (98.9 ??F) 07/14/2021 8:48 AM CD T Respiratory Rate 20 07/14/2021 8:48 AM CDT Oxygen Saturation 98% 11/11/2023 12:01 PM CDT Inhaled Oxygen Concentration - - Weight 65.1 kg (143 lb 9.6 oz) 11/11/2023 12:01 PM CDT Height 177.8 cm (5' 10 ) 11/11/2023 12:01 PM CDT Body Mass Index 20.6 11/11/2023 12:01 PM CDT Plan of Treatment Not on file Medical Devices Implanted Type Area Athletic Coordinator Device Identifier Shelf Expiration Date Model / Serial / Lot [employer] Device Clsr Perclose Prostyle Sut-Mediatd Closure-Repai r Sys 82341-62 - S0 - [id number] Implanted:Qty : 1 on 07/13/2021 by Hamlet Marte MD at [facility] Other - see comments Right: Femoral [employer] 06/17/2023 [id number] / 0 / [id number] Description:Fem Art Closure Device [employer] Stent Drug Eluting S Megatron Mr 5.82v12pc [id number] - S0 - [id number] Implanted:Qty : 1 on 07/13/2021 by Hamlet Marte MD at [facility] Stent N/A: Coronary [employer] 09/13/2021 [id number] / 0 / [id number] Description:Ost RCA [employer] Peripheral Vascular [id number] Lifestream 6mm 26mm 80cm Balloon Expandable Low Profile Cover - [id number] Implanted:Qty : 1 on 01/16/2021 by oRsalva Simmons MD at [facility] Peripheral Vascular 05/17/2022 [id number] / / [id number] [employer] [id number] Perclose 6fr Suture Mediate Knot Push Vascular Device Closure - [id number] Implanted:Qty : 1 on 01/16/2021 by Rosalva Simmons MD at [facility] [employer] 09/16/2022 [id number] / / [id number] 6106 Insurance AETNA MEDICARE GOLD AETNA MEDICARE GOLD Advance Directives For more information, please contact: [phone] * Full Code (Latest Code Status on File) Date Activated Date Inactivated Comments 07/13/2021 3:21 PM 07/14/2021 5:40 PM * Full Code Date Activated Date Inactivated Comments 01/16/2021 12:37 PM 01/16/2021 7:08 PM Care Teams Asw/Asuw Tactical Air Controller Relationship Specialty Start Date End Date David Ramon MD [address] [place] [id number] PCP - General Family Medicine 01/09/21
--- OUTSIDE RECORDS SUMMARY | 2024-02-29 05:23 | XMS_ITS | Encounter Summary ---
Author Organization [facility] Address [address] [facility] [address] [place] [address] Care Team Providers Care Loader Technician Name Role Phone No, Physician Primary Care Provider [phone] Encounter Details Date Type Department Care Team (Late st Contact Info) Description 12/08/2020 Orders Only [facility] Cardiology [address] [facility] [address] [facility] [address] [place] [id number] Aung Rick MD [address] [facility] [address] [place] [address] Social History Tobacco Use Types [...] Associated Diagnosis Comments CARDIOLOGY DOCUMENT SCAN Routine 12/08/2020 documented in this encounter Results * SCAN - CARDIOLOGY (12/08/2020) Anatomical Region Laterality Modality Other Aung Rick MD CV CARDIAC SERVICES PROC EDURES Final Result documented in this encounter Visit Diagnoses Not on filedocumented in this encounter Care Teams Loader Technician Relationship Specialty Start Date End Date No, Physician PCP - General 09/03/20 01/08/21 documented as of this encounter
--- OUTSIDE RECORDS SUMMARY | 2024-02-29 05:23 | XMS_ITS | Encounter Summary ---
Author Organization [facility] Address [address] [facility] [address] [place] [address] Care Team Providers Care Hand Assembler Name Role Phone David Ramon MD Primary Care Provider [phone] Reason for Visit * Reason Comments Coronary Artery Disease 2 month fu Encounter Details Date Type Department Care Team (Late st Contact Info) Description 10/25/2021 9:00 AM CDT Office Visit [facility] Cardiology [address] [address] Aung Rick MD [address] [facility] [address] [place] [address] Coronary artery disease involving [place] coronary artery of [place] heart without angina pectoris (Primary Dx); History [...] Sign Reading Time Taken Comments Blood Pressure 104/60 10/25/2021 9:01 AM CDT Pulse 61 10/25/2021 9:01 AM CDT Temperature - - Respiratory Rate - - Oxygen Saturation 97% 10/25/2021 9:01 AM CDT Inhaled Oxygen Concentration - - Weight 69.9 kg (154 lb) 10/25/2021 9:01 AM CDT Height 177.8 cm (5' 10 ) 10/25/2021 9:01 AM CDT Body Mass Index 22.1 10/25/2021 9:01 AM CDT documented in this encounter Progress Notes * Aung Rick MD - 10/25/2021 9:00 AM CDT [facility] 10/25/2021 Ramiro Enciso is a 81 y.o. male who presents for follow up of chest pain. This is a patient who has not been found to have coronary artery disease previously. I saw him a couple of times in the hospital at [place] in August of 2020 and again in [...] was referred to a vascular surgeon in [place] who performed a stent procedure on that with improvement in those symptoms. He presents today for follow-up several month interval. The patient was hospitalized at [place] inApril of 2021 with some chest pain. Catheterization demonstrated high-grade complex ostial stenosisin the right coronary artery. He was transferred to [facility] for intervention. In June of this year he underwent PCI and has done well since then. He was seen by the nurse practitioner our office shortly after that procedure was doing well at that time. He is describing no ischemic type chest pain since his intervention. He does have occasional episodes where he feels a sudden chills sensation. He is not having any symptoms of presyncope. His wants to know if he has to continue to take isosorbide. I told her that he does not since he has been mechanically revascularized REVIEW OF SYSTEMS General ROS: negative for [...] Medications: acetaminophen (TYLENOL) 325 mg tablet, Take 650 mg by mouth 2 (two) times a day as needed for pain,Disp: , Rfl: amLODIPine (NORVASC) 10 mg tablet, Take 10 mg by mouth daily, Disp: , Rfl: ascorbic acid (VITAMIN C) 500 mg tablet,chewable, Take 500 mg by mouth daily, Disp: , Rfl: aspirin 81 mg enteric coated tablet, Take 81 mg by mouth daily, Disp: , Rfl: atorvastatin (LIPITOR) 40 mg tablet, Take 40 mg by mouth nightly, Disp: , Rfl: clopidogreL (PLAVIX) 75 mg tablet, Take 75 mg by mouth daily, Disp: , Rfl: gemfibroziL (LOPID) 600 mg tablet, Take by mouth 2 (two) times a day, Disp: , Rfl: isosorbide mononitrate ER (IMDUR) 60 mg 24 hr tablet, Take 1 tablet (60 mg total) by mouth daily, Disp: 30 tablet, Rfl: 11 levETIRAcetam (KEPPRA) 1,000 mg tablet, Take by mouth 2 (two) times a day, Disp: , Rfl: metoprolol tartrate (LOPRESSOR) 25 mg immediate release tablet, Take 50 mg by mouth 2 (two) times aday, Disp: , Rfl: pantoprazole DR (PROTONIX) 40 mg EC tablet, Take by mouth director of optimization before breakfast, Disp: , Rfl: LABS AND [...] for component: LABALBU PHYSICAL EXAM Vitals BP 104/60 (BP Location: Left arm, Patient Position: Sitting) Pulse 61 Ht 177.8 cm (5' 10 ) Wt 69.9 kg (154 lb) SpO2 97% BMI 22.10 kg/m?? Physical Examination: General appearance - alert, [...] for this visit: Coronary artery disease involving [place] coronary artery of [place] heart without angina pectoris History of coronary artery stent placement PLAN/RECOMMENDATIONS Discontinue isosorbide Follow-up 6 months or p.r.n. Aung Rick MD documented in this encounter Plan of Treatment Not on file documented as of this encounter Visit Diagnoses Diagnosis Coronary artery disease involving [place] coronary artery of [place] heart without angina pectoris- Primary History of coronary artery stent placement documented in this encounter Discontinued Medications Medication Sig Discontinue Reason Start Date End Da te isosorbide mononitrate ER (IMDUR) 60 mg 24 hr tabletIndications:prevent ion of anginal pain in coronary artery disease Take 1 tablet (60 mg total) by mouth daily 12/18/2020 10/25/2021 documented as of this encounter Care Teams Hand Assembler Relationship Specialty Start Date End Date David Ramon MD [address] [place] [address] PCP - General Family Medicine 01/09/21 documented as of this encounter
== END 2024-02-25 18:35 | disposition home or self-care (01) ==
LOC: ANHED 12:46 → ANH3MEDSUR 13:38 → ANH2MED 02-24 01:19 → ANH3MEDSUR 02-26 07:28
PROVIDERS: Emergency Medicine; Admitting Provider General Practice; Emergency Provider Student in an Organized Health Care Education/Training Program; PCP Family Medicine; Visit Provider Nurse Practitioner Adult Health
DX: I95.1 Orthostatic hypotension (principal); R42 Dizziness and giddiness; R07.9 Chest pain, unspecified; S09.90XA Unspecified injury of head, initial encounter; W18.30XA Fall on same level, unspecified, initial encounter; H40.9 Unspecified glaucoma; I67.2 Cerebral atherosclerosis; I25.10 Atherosclerotic heart disease of native coronary artery without angina pectoris; I25.5 Ischemic cardiomyopathy; I10 Essential (primary) hypertension; E11.29 Type 2 diabetes mellitus with other diabetic kidney complication; K55.1 Chronic vascular disorders of intestine; E78.5 Hyperlipidemia, unspecified; K21.9 Gastro-esophageal reflux disease without esophagitis; F41.1 Generalized anxiety disorder; Z95.5 Presence of coronary angioplasty implant and graft; Z90.49 Acquired absence of other specified parts of digestive tract; Z96.653 Presence of artificial knee joint, bilateral; Z66 Do not resuscitate; Z86.69 Personal history of other diseases of the nervous system and sense organs; Z86.73 Personal history of transient ischemic attack (TIA), and cerebral infarction without residual deficits; Z87.891 Personal history of nicotine dependence; Z79.899 Other long term (current) drug therapy
CPT/HCPCS: 36415; 70450; 70553; 71045; 80053; 83735; 84484; 85025; 93005; 93306; 95816; 96361; 96365; 97161; 97165; 99285; A9270; A9577; G0378; J1650; J1953; J7120

== ENCOUNTER 2024-03-07 08:48 | Observation (INO) | payer MEDICARE, SELFPAY ==
[2024-03-07] VITALS (20 sets, daily range): BP systolic 102–140; BP diastolic 56–73; PULSE 60–89; RESP 13–22; TEMP 36.5–36.8; O2SAT 97–100; BMI 19.7
--- NOTE | ~2024-03-07 | XR_ITS ---
CHEST RADIOGRAPH, PA AND LATERAL CLINICAL HISTORY: SOB, CP . COMPARISON: 02/22/2024 TECHNIQUE: PA and lateral views of the chest. FINDINGS The cardiomediastinal silhouette is unremarkable. Coarse interstitial lung markings detected bilaterally. The lungs are otherwise clear. Visualized osseous structures and soft tissues are unremarkable. IMPRESSION: Coarse interstitial lung markings, likely chronic, without focal infiltrate or effusion. Reviewed, dictated and finalized at location A. GROOMER
--- NOTE | ~2024-03-07 | CT_ITS ---
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 The do se-length product was 403.02 mGy-cm. Maximum intensity projection 3D-reconstructions of the aorta and other arteries were constructed by the technologist on a separate workstation. FINDINGS/OBSERVATIONS: PULMONARY ARTERIES: Poor opacification of the pulmonary arteries, insufficient to evaluate for pulmon martita embolus. No large filling defect is identified within the main or proximal pulmonary artery. The main pulmonary artery is not enlarged. THORACIC AORTA: No aneurysmal dilatation or dissection is present. The great vessels are intact. LUNGS: Dependent atelectasis. Calcified granulomas. The lungs are otherwise clear. MEDIASTINUM: No morphologically suspicious or pathologically enlarged lymph nodes are identified with in the mediastinum or bilateral axilla. Redemonstration of a retrosternal heterogeneous thyroid gland with bulky calcifications, asymmetrical ly enlarged to the right. BONES OF THE CHEST: No acute fracture. Moderate degenerative disease. No lytic or blastic lesions. HEART: The heart is of normal size, without pericardial effusion. LIVER: The liver enhances homogeneously and is not enlarged measuring 17 cm in longitudinal dimension. GALLBLADDER AND BILIARY SYSTEM: The gallbladder is surgically absent. PANCREAS: The pancreas enhances homogeneously without ductal dilatation. SPLEEN: The spleen enhances homogeneously and is not enlarged measuring 6 cm in longitudinal dimension. KIDNEYS: The bilateral kidneys enhance symmetrically without hydronephrosis or renal calculi. ADRENAL GLANDS: Unremarkable. GASTROINTESTINAL TRACT: Mural thickening with diverticulosis and surrounding inflammatory change within the rectosigmoid colo n, suggesting acute/early diverticulitis for which clinical correlation is needed. Fecal stasis distending the rectum for which fecal impaction is suspected. APPENDIX: The appendix is not definitively visualized. However, no pericecal inflammatory change is identified suggest the presence of acute appendicitis. VASCULATURE: Densely calcified atherosclerotic disease without aneurysmal dilatation or dissection Patency of a endoluminal stent within the superior mesenteric artery. LYMPH NODES: No pathologically enlarged or morphologically suspicious lymph nodes within the retroperitoneum or at the root of the mesentery. PELVIC STRUCTURES: The bladder is minimally distended, and otherwise unremarkable. The prostate gland is not enlarged, but demonstrates multiple bulky calcifications.. BODY WALL AND MUSCULOSKELETAL: Small fat-containing umbilical hernia. Significant degenerative disease within the thoracic and lumbosacral spine. IMPRESSION: Findings consistent with acute/early diverticulitis in the rectosigmoid colon. Fecal impaction. No aortic dissection or aneurysmal dilatation. No large filling defects within the main and proximal pulmonary arteries Reviewed, dictated and finalized at location A. RAMMER ANALYST
--- NOTE | 2024-03-07 08:53 | ECG_ITS ---
Test Date: 2024-03-07 09:00:20 Measurements Intervals [place] Rate: 76 P: 95 OK: 212 QRS: -69 QRSD: 130 T: 20 QT: 400 QTc: 451 Interpretive Statements SINUS RHYTHM WITH FIRST DEGREE AV BLOCK MARKED LEFT AXIS DEVIATION [QRS AXIS < -30] RIGHT BUNDLE BRANCH BLOCK [120+ ms QRS DURATION, UPRIGHT V1, 40+ ms S IN I/aVL/V4/V5/V6] POSSIBLE ANTERIOR MYOCARDIAL INFARCTION , PROBABLY OLD [30 ms Q WAVE IN V3/V4, OR R < 0.2 mV IN V4] Compared to ECG 02/23/2024 11:07:58 no change Electronically Signed On 03-07-2024 10:09:10 SKETCH ARTIST by Ryne Hua M.D.
[2024-03-07 09:10] LABS: Basophils Absolute Auto 0.1 K/mm3 (0.0-0.1); Basophils Percent Auto 1.1 % (0.2-1.2); Eosinophils Absolute Auto 0.1 K/mm3 (0-0.3); Eosinophils Percent Auto 1.8 % (0-4.4); Hematocrit 39.4 % (42.0-52.0); Hemoglobin 13.3 g/dL (14.0-18.0); Immature Granulocyte Absolute 0.05 K/mm3 (0.00-0.031); Immature Granulocyte Percent A 0.8 % (0-0.5); Lymphocytes Absolute Auto 1.41 K/mm3 (0.9-3.2); Lymphocytes Percent Auto 21.2 % (18.3-44.2); Mean Corpuscular HGB Conc 33.8 g/dl (32-36); Mean Corpuscular Hemoglobin 32.9 pg (26-34); Mean Corpuscular Volume 97.5 fl (80-100); Mean Platelet Volume 8.7 fl (7.4-10.4); Monocytes Absolute Auto 0.7 K/mm3 (0.1-0.6); Monocytes Percent Auto 9.9 % (2.6-8.5); Neutrophils Absolute Auto 4.3 K/mm3 (1.3-6.7); Neutrophils Percent Auto 65.2 % (45.5-73.1); Platelet Count Result 225 k/mm3 (150-375); Red Blood Count 4.04 M/mm3 (4.6-6.20); Red Cell Distribution Width 12.5 % (11.5-14.5); White Blood Count 6.7 K/mm3 (4.5-10.0)
[2024-03-07 09:22] LABS: Prothrombin Time 13.3 Seconds (11.1-14.7)
[2024-03-07 09:23] LABS: Partial Thromboplastin Time 27.5 Seconds (22.3-36.8)
[2024-03-07 09:25] LABS: Alanine Aminotransferase 25 U/L (6-50); Albumin Level 4.1 g/dL (3.5-5.1); Alkaline Phosphatase 59 U/L (38-126); Anion Gap 9 mmol/L (4-12); Aspartate Amino Transferase 32 U/L (17-59); Bilirubin,Total 0.6 mg/dL (0.2-1.3); Blood Urea Nitrogen 10 mg/dL (9-20); Carbon Dioxide 26 mmol/L (22-30); Chloride 100 mmol/L (98-107); Estimated CRCL calculation 58 ml/min; Estimated Glomerular Filt Rate > 60; Glucose 128 mg/dL (65-110); Lipase 1008 U/L (23-300); Potassium 4.1 mmol/L (3.4-5.0); Sodium 135 mmol/L (137-145)
[2024-03-07 09:37] LABS: Troponin I < 0.012 ng/mL (0.000-0.034)
--- NOTE | 2024-03-07 10:57 | ED_ITS ---
HPI - Chest Pain General Chief Complaint: Chest Pain Stated Complaint: chest pain Time Seen by Provider: 03/07/24 09:59 Source: EMS Mode of arrival: ambulatory Limitations: no limitations History of Present Illness HPI narrative: This is an 83-year-old male, with history of [place] status post stenting in 2021, is brought in by EMS from home with complaints of sudden onset severe chest pain beginning at 03:00 o'clock this morning. The patient states hip pain will come from sleep and radiates to the bilateral arms. This is associated with some shortness of breath. He denies nausea, vomiting, weakness or numbness. He states the pain has since resolved. EMS gave the patient 2 sprays of nitro and 324 mg of aspirin in route. Related Data Home Medications ?Medication ?Instructions ?Recorded ?Confirmed ?Last Taken ?Type ascorbic acid (vitamin C) 500 mg 500 mg PO DAILY 06/29/21 03/07/24 02/21/24 History tablet vit C 250 mg-vit E 90 mg-zinc 40 1 tablet PO .q12hr 06/29/21 03/07/24 02/21/24 History mg-copper 1 ca-vooaak-tmlhoa capsule (PreserVision AREDS-2) vitamin B complex (B 1 tablet PO DAILY 06/29/21 03/07/24 02/21/24 History Complex-Vitamin B12 tablet) acetaminophen 500 mg capsule 500 mg PO BID 04/16/22 03/07/24 03/07/24 History cholecalciferol (vitamin D3) 125 50 mcg PO DAILY 04/16/22 03/07/24 02/21/24 History mcg (5,000 unit) capsule coenzyme Q10 100 mg capsule 200 mg PO DAILY 04/16/22 03/07/24 02/21/24 History omega 8-nlr-ogf-fish oil 1,200 mg 1 cap PO DAILY 04/16/22 03/07/24 02/21/24 History (144 mg-216 mg) capsule (Fish Oil) dbtyyjqxwqey-pbgehasx-ikyepo tablet 1 tablet PO DAILY 02/05/23 03/07/24 02/21/24 History levetiracetam 1,000 mg tablet 1,000 mg PO Q12H 03/07/24 03/07/24 Unknown History pantoprazole 40 mg tablet,delayed 40 mg PO Q12H 03/07/24 03/07/24 Unknown History release (Protonix) Allergies Allergy/AdvReac Type Severity Reaction Status Date / Time No Known Allergies Allergy Verified 03/07/24 09:09 Review of Systems 2 Review of Systems: All systems reviewed & are unremarkable except as noted in HPI and below FORMERLY [facility] Past Medical History Medical History (Updated 03/07/24 @ 13:37 by Rosalie De La Rosa PA-C) Coronary artery disease Diet-controlled diabetes mellitus Cerebrovascular accident with no reported residual deficits History of GI diverticular bleed (04/2023) Chronic vascular disorders of intestine Essential (primary) hypertension Cerebral atherosclerosis Epilepsy, unspecified, not intractable, without status epilepticus Generalized anxiety disorder Ischemic cardiomyopathy Glaucoma Chronic GERD Hyperlipidemia Surgical History Surgical History (Updated 03/07/24 @ 13:26 by Rosalie De La Rosa PA-C) History of cardiac catheterization History of intravascular stent placement (2020) for superior mesenteric artery stenosis History of coronary artery stent placement x4 History of cholecystectomy (1999) History of open reduction and internal fixation (ORIF) procedure (01/2023) repair of right hip fracture History of bilateral knee replacement left 2010 right 2019 History of cataract extraction Family History Family History Father Cerebrovascular accident Sibling Breast cancer Sister Diabetes mellitus Kidney failure Social History Social History (Updated 03/07/24 @ 13:28 by Rosalie De La Rosa PA-C) Social History: Surrogate medical decision maker: Jessica Enciso, spouse. Code status: Full code. Smoking packs per day: 1.5 Smoking cigarettes per day: 30.0 Years smoked: 10 Smoking pack-years: 15.00 Smoking status: Former smoker Smokeless tobacco user: chewing tobacco Second hand tobacco smoke exposure: Yes Additional smoking assessment comments: quit chewing tobacco in 2022 Alcohol intake: former Substance use: never Substance use type: does not use Do You Feel Safe in your Home?: Yes Lack of Transportation: No Lack of Food: Never True Current Housing: I Have Housing Concerned About Future Housing: No Difficulty Paying Gas/Electric Bills: No Difficulty Paying for Meds: No Currently Unemployed: No Education: Trade/Vocational Certificate Difficulty w/ Childcare or Family Care: No Living arrangements: with family Additional living arrangements comments: Lives with in [place]. Ambulates with a walker. 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 Spiritual care concerns: No Exam 2 Narrative: GENERAL: Well-developed, well-nourished, and in no acute distress. HEAD: Normocephalic, atraumatic. EYES: PERRLA and EOMI. CHEST: Clear to auscultation. No respiratory distress. No wheezes rales or rhonchi HEART: Regular rate and rhythm. No murmur heard. Normal peripheral pulses. ABDOMEN: Soft, mild epigastric tenderness to palpation, without rebound or guarding, nondistended, normal active bowel sounds. EXTREMITIES: Normal range of motion. No edema. SKIN: Warm, dry, no rash. NEURO: Alert and oriented x3. No focal deficit. Moving all 4 limbs spontaneously PSYCH: Normal mood and affect. Course Course Emergency Course: 12:56 - Troponins negative x2. EKGs not concerning for acute ischemia. CBC demonstrates a normal white blood cell count and chronic anemia with hemoglobin of 13.3 but is otherwise unremarkable. Chemistries demonstrate mild hyponatremia with sodium of 135 but is otherwise unremarkable. Lipase elevated at 1008. The patient's presentation was initially concerning for dissection. CT angiogram was not concerning for vascular abnormality, though does demonstrates diverticulitis of the rectosigmoid colon as well as fecal impaction. Considering the patient's cardiac history, I discussed these findings with recommendation for observation. The patient is agreeable to the plan. I discussed the patient with hospitalist, EULALIO De La Rosa who accepts admission. Vital Signs Vital signs: Vital Signs Temperature 97.7 F 03/07/24 08:54 Pulse Rate 75 03/07/24 08:54 Respiratory Rate 20 03/07/24 08:54 Blood Pressure 126/67 03/07/24 08:54 Pulse Oximetry 97 03/07/24 08:54 Oxygen Delivery Room Air 03/07/24 08:54 Temperature 98.0 F 03/07/24 19:19 Pulse Rate 78 03/07/24 19:19 Respiratory Rate 16 03/07/24 19:19 Blood Pressure 122/56 L 03/07/24 19:19 Pulse Oximetry 100 03/07/24 19:19 Oxygen Delivery Room Air 03/07/24 18:00 MDM - Chest Pain MDM Narrative Medical decision making narrative: Plan: Labs, imaging, pain control, EKG, troponin, reassess Differential Diagnosis Differential diagnosis: Likely pneumothorax, costochondritis and other (ACS, dissection, pancreatitis, cholecystitis, pneumonia, metabolic abnormality, other) Lab Data 03/07/24 09:04 03/07/24 09:04 Labs: Lab Results 03/07/24 03/07/24 Range/Units 09:04 11:45 WBC 6.7 (4.5-10.0) K/mm3 RBC 4.04 L (4.6-6.20) M/mm3 Hgb 13.3 L (14.0-18.0) g/dL Hct 39.4 L (42.0-52.0) % MCV 97.5 (80-100) fl MCH 32.9 (26-34) pg MCHC 33.8 (32-36) g/dl RDW 12.5 (11.5-14.5) % Plt Count 225 (150-375) k/mm3 MPV 8.7 (7.4-10.4) fl Immature Gran % (Auto) 0.8 H (0-0.5) % Neut % (Auto) 65.2 (45.5-73.1) % Lymph % (Auto) 21.2 (18.3-44.2) % [place] % (Auto) 9.9 H (2.6-8.5) % Eos % (Auto) 1.8 (0-4.4) % Baso % (Auto) 1.1 (0.2-1.2) % Lymph # (Auto) 1.41 (0.9-3.2) K/mm3 [place] # (Auto) 0.7 H (0.1-0.6) K/mm3 Eos # (Auto) 0.1 (0-0.3) K/mm3 Baso # (Auto) 0.1 (0.0-0.1) K/mm3 Abs Immat Gran (auto) 0.05 H (0.00-0.031) K/mm3 Absolute Neuts (auto) 4.3 (1.3-6.7) K/mm3 Absolute Nucleated RBC 0.000 (0.0-0.012) K/mm3 Nucleated RBC % 0.0 (0.0-0.2) % PT 13.3 (11.1-14.7) Seconds INR 1.0 APTT 27.5 (22.3-36.8) Seconds Sodium 135 L (137-145) mmol/L Potassium 4.1 (3.4-5.0) mmol/L Chloride 100 (98-107) mmol/L Carbon Dioxide 26 (22-30) mmol/L Anion Gap 9 (4-12) mmol/L BUN 10 (9-20) mg/dL Creatinine 0.76 (0.7-1.3) mg/dL Estim Creat Clear Calc 58 ml/min Estimated GFR > 60 (59 - ) Glucose 128 H (65-110) mg/dL Calcium 9.0 (8.4-10.2) mg/dL Total Bilirubin 0.6 (0.2-1.3) mg/dL AST 32 (17-59) U/L ALT 25 (6-50) U/L Alkaline Phosphatase 59 (38-126) U/L Troponin I < 0.012 0.012 (0.000-0.034) ng/mL Total Protein 6.0 L (6.3-8.2) g/dL Albumin 4.1 (3.5-5.1) g/dL Lipase 1008 H (23-300) U/L ECG Data EKG #1: Attestation: I personally reviewed and interpreted this ECG as follows: ECG completion date: 03/07/24 ECG completion time: 09:00 Prior ECG tracings: available for review Interpretation: Sinus rate rate 76, left axis deviation, right bundle-branch block, no ST segment elevations or T-wave inversions concerning for ischemia, first-degree AV block MO of 212, otherwise normal intervals with QTC of 451. Compared to EKG done on 23 February 2024, there are no significant changes. Discharge Plan Discharge Clinical Impression: Diverticulitis Chest pain Qualifiers: Chest pain type: unspecified Qualified Code(s): R07.9 - Chest pain, unspecified Pancreatitis Qualifiers: Chronicity: acute Pancreatitis type: other Acute pancreatitis complication: u nspecified Qualified Code(s): K85.80 - Other acute pancreatitis without necrosis or infection Patient Disposition: Still a Patient Condition: Serious Time of Disposition: 12:55
--- NOTE | 2024-03-07 11:05 | ECG_ITS ---
Test Date: 2024-03-07 11:43:31 Measurements Intervals [place] Rate: 70 P: 12 [place]: 221 QRS: -63 QRSD: 117 T: -5 QT: 393 QTc: 426 Interpretive Statements SINUS RHYTHM WITH FIRST DEGREE AV BLOCK PATTERN CONSISTENT WITH PULMONARY DISEASE INCOMPLETE RIGHT BUNDLE BRANCH BLOCK [90+ ms QRS DURATION, TERMINAL R IN V1/V2, 40+ ms S IN I/aVL/V4/V5/V6] LEFT ANTERIOR FASCICULAR BLOCK [QRS AXIS <= -45, QR IN I, RS IN II] Electronically Signed On 03-08-2024 18:13:59 HERBICIDE SPRAYER by Emelyn Lowe M.D.
[2024-03-07 12:11] LABS: Troponin I 0.012 ng/mL (0.000-0.034)
--- NOTE | 2024-03-07 13:00 | P.HP_ITS ---
H&P: HPI History of Present Illness Date/Time: 03/07/24 13:00 Chief Complaint: Chest pain. 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 The patient provides the following history. He was admitted to the hospital a couple of weeks ago with recurrent falls and family members were hoping he could go to [facility] however he did so well in physical therapy that he did not qualify. Unfortunately it sounds as though he continues to have falls at home but luckily he has not injured himself. He has otherwise been doing okay but does mention an episode a couple of nights ago of having lower abdominal cramping after eating scrambled eggs but that since resolved. Last night he was in his usual state of health when he went to bed but he was wakened from sleep at about 03:00 with a severe burning pain in the substernal region radiating to both arms associated with shortness of breath and nausea. He took 2 Tylenol and was able to fall back asleep however his symptoms were still there when he woke up and he called 911. EMS administered nitroglycerin and aspirin 324 mg and he has been without discomfort since that time. The time my evaluation he is in good spirits and denies fever, chills, sweats, vertigo, chest pain, pleuritic pain, shortness of breath, palpitations, abdominal pain, epigastric pain, bloating, belching, vomiting, diarrhea, and dysuria. In the ED: Vital signs were stable on arrival. Labs are significant for WBC count 6.7, hemoglobin 13.3, sodium 135, glucose 128, troponin less than 0.012, lipase 1008. EKG showed sinus rhythm with first-degree AV block, left axis deviation, right bundle-branch block, and probably old anterior ND (no significant change compared to prior tracings). CTA of the chest, abdomen, and pelvis showed findings consistent with acute/early diverticulitis in the rectosigmoid colon and fecal impaction, no aortic dissection or aneurysmal dilatation, and no large filling defects within the main pulmonary arteries (poor opacifications of the pulmonary arteries insufficient to evaluate for pulmonary embolus). Review of Systems Review of Systems: 12 systems were reviewed and are negativ e except for as per HPI. FORMERLY [facility] Past Medical History Medical History Coronary artery disease Diet-controlled diabetes mellitus Cerebrovascular accident with no reported residual deficits History of GI diverticular bleed (04/2023) Chronic vascular disorders of intestine Essential (primary) hypertension Cerebral atherosclerosis Epilepsy, unspecified, not intractable, without status epilepticus Generalized anxiety disorder Ischemic cardiomyopathy Glaucoma Chronic GERD Hyperlipidemia Surgical History Surgical History History of cardiac catheterization History of intravascular stent placement (2020) for superior mesenteric artery stenosis History of coronary artery stent placement x4 History of cholecystectomy (1999) History of open reduction and internal fixation (ORIF) procedure (01/2023) repair of right hip fracture History of bilateral knee replacement left 2010 right 2019 History of cataract extraction Family History Family History Father Cerebrovascular accident Sibling Breast cancer Sister Diabetes mellitus Kidney failure Social History Social History Social History: Surrogate medical decision maker: Jessica Enciso, spouse. Code status: Full code. Smoking packs per day: 1.5 Smoking cigarettes per day: 30.0 Years smoked: 10 Smoking pack-years: 15.00 Smoking status: Former smoker Smokeless tobacco user: chewing tobacco Second hand tobacco smoke exposure: Yes Additional smoking assessment comments: quit chewing tobacco in 2022 Alcohol intake: former Substance use: never Substance use type: does not use Do You Feel Safe in your Home?: Yes Lack of Transportation: No Lack of Food: Never True Current Housing: I Have Housing Concerned About Future Housing: No Difficulty Paying Gas/Electric Bills: No Difficulty Paying for Meds: No Currently Unemployed: No Education: Trade/Vocational Certificate Difficulty w/ Childcare or Family Care: No Living arrangements: with family Additional living arrangements comments: Lives with in [place]. Ambulates with a walker. 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 care concerns: No Meds Home Medications and Allergies Home Medications ?Medication ?Instructions ?Recorded ?Confirmed ?Type ascorbic acid (vitamin C) 500 mg 500 mg PO DAILY 06/29/21 03/07/24 History tablet vit C 250 mg-vit E 90 mg-zinc 40 1 tablet PO .q12hr 06/29/21 03/07/24 History mg-copper 1 mw-fxlowg-ooatpz capsule (PreserVision AREDS-2) vitamin B complex (B 1 tablet PO DAILY 06/29/21 03/07/24 History Complex-Vitamin B12 tablet) acetaminophen 500 mg capsule 500 mg PO BID 04/16/22 03/07/24 History cholecalciferol (vitamin D3) 125 50 mcg PO DAILY 04/16/22 03/07/24 History mcg (5,000 unit) capsule coenzyme Q10 100 mg capsule 200 mg PO DAILY 04/16/22 03/07/24 History omega 6-cly-qot-fish oil 1,200 mg 1 cap PO DAILY 04/16/22 03/07/24 History (144 mg-216 mg) capsule (Fish Oil) fowwycyhkrvc-ifdplclm-etzzkl tablet 1 tablet PO DAILY 02/05/23 03/07/24 History ferrous sulfate 325 mg (65 mg 325 mg PO DAILY #90 tabs 08/20/23 03/07/24 Rx iron) tablet clopidogrel 75 mg tablet 75 mg PO DAILY #90 tabs 01/07/24 03/07/24 Rx metoprolol succinate 50 mg 50 mg PO DAILY #100 tabs 01/07/24 03/07/24 Rx tablet,extended release 24 hr rosuvastatin 40 mg tablet 40 mg PO DAILY #90 tabs 01/07/24 03/07/24 Rx levetiracetam 1,000 mg tablet 1,000 mg PO Q12H 03/07/24 03/07/24 History pantoprazole 40 mg tablet,delayed 40 mg PO Q12H 03/07/24 03/07/24 History release (Protonix) Allergies Allergy/AdvReac Type Severity Reaction Status Date / Time No Known Allergies Allergy Verified 03/07/24 09:09 Vital Signs Vital Signs - 24 hr 03/07/24 08:54 03/07/24 09:06 03/07/24 09:07 Temperature 97.7 F Pulse Rate 75 70 Respiratory Rate 20 Blood Pressure 126/67 Pulse Oximetry 97 98 Oxygen Delivery Room Air Room Air 03/07/24 09:08 03/07/24 09:15 03/07/24 09:45 Temperature Pulse Rate 75 79 Respiratory Rate 13 15 Blood Pressure Pulse Oximetry 98 97 Oxygen Delivery Room Air 03/07/24 10:06 03/07/24 10:07 03/07/24 10:38 Temperature Pulse Rate 64 64 63 Respiratory Rate 13 18 16 Blood Pressure 102/62 Pulse Oximetry 97 100 100 Oxygen Delivery 03/07/24 11:02 Temperature Pulse Rate 60 Respiratory Rate 19 Blood Pressure 107/61 Pulse Oximetry 100 Oxygen Delivery Exam Narrative: General: Nontoxic-appearing male supine in bed in no acute distress. Weight: 62.4 kg. BMI: 19.7. HEENT: Wearing corrective lenses. PERRL, EOMI. Sclera anicteric. Oral mucosa moist. Neck: Supple. No JVD. Respiratory: Lungs are clear to auscultation bilaterally. Cardiovascular: Regular rate and rhythm with S1-S2. Chest: No tenderness to palpation over the chest wall. Gastrointestinal: Abdomen is soft, scaphoid, nontender, and nondistended with positive bowel sounds. No guarding or rebound tenderness. Skin: Warm and dry. Extremities: No cyanosis, clubbing, or edema. Radial and pedal pulses intact. Neurological: Alert. Cranial nerves 2-12 are grossly intact. Generally weak without gross focal findings. Psychiatric: Pleasant and cooperative with normal mood and affect. Judgment and insight intact. H&P: Results Labs Labs: Short CBC 03/07/24 Range/Units 09:04 WBC 6.7 (4.5-10.0) K/mm3 Hgb 13.3 L (14.0-18.0) g/dL Hct 39.4 L (42.0-52.0) % Plt Count 225 (150-375) k/mm3 BMP 03/07/24 09:04 Sodium 135 L Potassium 4.1 Chloride 100 Carbon Dioxide 26 BUN 10 Creatinine 0.76 Glucose 128 H Calcium 9.0 Cardiac Enzymes 03/07/24 03/07/24 Range/Units 09:04 11:45 Troponin I < 0.012 0.012 (0.000-0.034) ng/mL Liver Function 03/07/24 Range/Units 09:04 Total Bilirubin 0.6 (0.2-1.3) mg/dL AST 32 (17-59) U/L ALT 25 (6-50) U/L Alkaline Phosphatase 59 (38-126) U/L Albumin 4.1 (3.5-5.1) g/dL Impressions Chest X-Ray 03/07/24 09:15 IMPRESSION: Coarse interstitial lung markings, likely chronic, without focal infiltrate or effusion. Chest/Abdomen/Pelvis CTA 03/07/24 11:12 IMPRESSION: Findings consistent with acute/early diverticulitis in the rectosigmoid colon. Fecal impaction. No aortic dissection or aneurysmal dilatation. No large filling defects within the main and proximal pulmonary arteries Assessment and Plan Assessment and plan (1) Chest pain: Qualifiers: Chest pain type: unspecified Qualified Code(s): R07.9 - Chest pain, unspecified Code(s): R07.9 - Chest pain, unspecified Status: Acute (2) Elevated lipase: Code(s): R74.8 - Abnormal levels of other serum enzymes Status: Acute (3) Coronary artery disease: Code(s): I25.10 - Atherosclerotic heart disease of elem coronary artery without angina pectoris Status: Acute (4) Fecal impaction: Code(s): K56.41 - Fecal impaction Status: Acute (5) Essential (primary) hypertension: Code(s): I10 - Essential (primary) hypertension Status: Chronic (6) Diet-controlled diabetes mellitus: Code(s): E11.9 - Type 2 diabetes mellitus without complications Status: Acute Plan The patient presented to the emergency department for evaluation of substernal chest pain radiating to the arms associated with nausea and shortness of breath which awakened him from sleep this morning as detailed in HPI. Labs, imaging, EKG, and all reports were personally reviewed. Initial troponin was normal and EKG did not show any significant changes compared to prior tracings. Given his cardiac history he is being admitted for close monitoring however it seems atypical for cardiac pain. Consider GI etiology given history of duodenal ulcers though he denies other associated symptoms. Continue PPI. CT shows fecal stasis and concerns for fecal impaction and he has been started on a bowel regimen. Not likely musculoskeletal in etiology. While his lipase is elevated, his abdominal exam is completely benign and CT did not show any findings of pancreatitis. CT scan also shows findings of possible early diverticulitis but again his abdominal exam is benign. As he is afebrile and with normal white blood cell count, will hold on antibiotics. Continue to trend lipase and troponins. Vital signs were reviewed and they are stable. Findings and treatment plan were dis cussed with the patient. Questions were solicited and answered to satisfaction. The patient's medical management will be taken over by the hospitalist team in a.m. Quality VTE Prophylaxis VTE prophylaxis: mechanical ordered If No VTE Prophylaxis Answer both mechanical and pharmacologic: Reason no pharmacologic proph: medical contraindication (patient on dual anti- platelet therapy, pharmacologic prophylaxis would put him at increased risk for bleeding) Hospitalist MIPS Advance Care Plan I have confirmed that the patient's Advanced Care Plan is present, code status is documented, or surrogate decision maker is listed in patient medical record.: Yes Medication Reconciliation I have utilized all available resources to obtain, update and review the patients current medications (includes all prescriptions, OTC, herbals, cannabis, and nutritional supplements).: Yes
--- NOTE | 2024-03-07 14:53 | ECG_ITS ---
Test Date: 2024-03-07 14:56:49 Measurements Intervals [place] Rate: 76 P: 58 TN: 239 QRS: -68 QRSD: 121 T: 22 QT: 377 QTc: 424 Interpretive Statements SINUS RHYTHM WITH FIRST DEGREE AV BLOCK RIGHT BUNDLE BRANCH BLOCK [120+ ms QRS DURATION, UPRIGHT V1, 40+ ms S IN I/aVL/V4/V5/V6] LEFT ANTERIOR FASCICULAR BLOCK [QRS AXIS <= -45, QR IN I, RS IN II] POSSIBLE ANTERIOR MYOCARDIAL INFARCTION , PROBABLY OLD [30 ms Q WAVE IN V3/V4, OR R < 0.2 mV IN V4] Compared to ECG 03/07/2024 11:43:31 Right bundle-branch block now present Myocardial infarct finding now present Incomplete right bundle-branch block no longer present Electronically Signed On 03-08-2024 18:12:07 ART EDUCATOR by Emelyn Lowe M.D.
[2024-03-07 15:33] LABS: Troponin I < 0.012 ng/mL (0.000-0.034)
--- NOTE | 2024-03-07 17:22 | ADMGEN ---
This patient, Ramiro Enciso, was admitted to IMU Room 232-01. Patient/family oriented to hospital policies and general routines including ID bracelet, bed and alarms, visiting hours, pain management, procedures, bathroom and other care routines, personal items, smoking policy, room service/diet, and visiting hours. Information on how to activate the Rapid Response Team has been discussed. Patient/Family are encouraged to report perceived risks to care and to ask questions if they do not understand what they are told or what they should do.
[2024-03-07] MEDS: ACETAMINOPHEN 325 MG TABLET 650 MG PO (17:43)
[2024-03-07] MEDS: levETIRAcetam 500 MG TABLET 1000 MG PO (23:40)
[2024-03-07] MEDS: OPTI-GEN TAB 1 TABLET PO (23:40)
[2024-03-07] MEDS: PANTOPRAZOLE 40 MG TABLET PO (23:40)
[2024-03-08] VITALS (10 sets, daily range): BP systolic 122–140; BP diastolic 53–74; PULSE 58–81; RESP 18–20; TEMP 36.3–37.2; O2SAT 97–100
[2024-03-08 05:23] LABS: Basophils Absolute Auto 0.1 K/mm3 (0.0-0.1); Basophils Percent Auto 1.1 % (0.2-1.2); Eosinophils Absolute Auto 0.3 K/mm3 (0-0.3); Eosinophils Percent Auto 3.6 % (0-4.4); Hematocrit 38.9 % (42.0-52.0); Immature Granulocyte Absolute 0.05 K/mm3 (0.00-0.031); Immature Granulocyte Percent A 0.7 % (0-0.5); Lymphocytes Absolute Auto 1.15 K/mm3 (0.9-3.2); Lymphocytes Percent Auto 15.2 % (18.3-44.2); Mean Corpuscular HGB Conc 33.4 g/dl (32-36); Mean Corpuscular Hemoglobin 33.1 pg (26-34); Mean Platelet Volume 8.4 fl (7.4-10.4); Monocytes Absolute Auto 0.8 K/mm3 (0.1-0.6); Monocytes Percent Auto 10.7 % (2.6-8.5); Neutrophils Absolute Auto 5.2 K/mm3 (1.3-6.7); Neutrophils Percent Auto 68.7 % (45.5-73.1); Platelet Count Result 203 k/mm3 (150-375); Red Blood Count 3.93 M/mm3 (4.6-6.20); Red Cell Distribution Width 12.6 % (11.5-14.5); White Blood Count 7.6 K/mm3 (4.5-10.0)
[2024-03-08 05:37] LABS: Lipase 109 U/L (23-300); Magnesium 1.9 mg/dL (1.6-2.3)
[2024-03-08 05:39] LABS: Anion Gap 7 mmol/L (4-12); Blood Urea Nitrogen 14 mg/dL (9-20); Carbon Dioxide 26 mmol/L (22-30); Chloride 102 mmol/L (98-107); Estimated CRCL calculation 53 ml/min; Estimated Glomerular Filt Rate > 60; Glucose 85 mg/dL (65-110); Potassium 4.2 mmol/L (3.4-5.0); Sodium 135 mmol/L (137-145)
[2024-03-08] MEDS: CHOLECALCIFEROL 5,000 UNITS TABLET 5000 UNITS BY MOUTH (09:07)
[2024-03-08] MEDS: OPTI-GEN TAB 1 TABLET PO (09:07)
[2024-03-08] MEDS: levETIRAcetam 500 MG TABLET 1000 MG PO ×2 (09:07→21:44)
[2024-03-08] MEDS: PANTOPRAZOLE 40 MG TABLET PO ×2 (09:07→21:44)
[2024-03-08] MEDS: ROSUVASTATIN 20 MG TABLET 40 MG PO (09:07)
[2024-03-08] MEDS: FERROUS SULFATE 325 MG TABLET DR BY MOUTH (09:07)
[2024-03-08] MEDS: OMEGA 3 POLYUNSAT FATTY ACIDS 1 GM CAP PO (09:07)
[2024-03-08] MEDS: polyethylene glycoL 3350 17 GM POWD.PACK PO (09:07)
[2024-03-08] MEDS: METOPROLOL SUCCINATE EXT REL 50 MG TABCR PO (09:07)
[2024-03-08] MEDS: VITAMIN B COMPLEX CAPSULE 1 CAP PO (09:07)
[2024-03-08] MEDS: CLOPIDOGREL BISULFATE 75 MG TABLET PO (09:07)
[2024-03-08] MEDS: ASCORBIC ACID 500 MG TABLET PO (09:07)
--- NOTE | 2024-03-08 11:15 | PM.IMPN ---
Progress Note: A&P Assessment and Plan (1) Chest pain: Qualifiers: Chest pain type: unspecified Qualified Code(s): R07.9 - Chest pain, unspecified Code(s): R07.9 - Chest pain, unspecified Status: Acute (2) Elevated lipase: Code(s): R74.8 - Abnormal levels of other serum enzymes Status: Acute (3) Coronary artery disease: Code(s): I25.10 - Atherosclerotic heart disease of [place] coronary artery without angina pectoris Status: Acute (4) Fecal impaction: Code(s): K56.41 - Fecal impaction Status: Acute (5) Essential (primary) hypertension: Code(s): I10 - Essential (primary) hypertension Status: Chronic (6) Diet-controlled diabetes mellitus: Code(s): E11.9 - Type 2 diabetes mellitus without complications Status: Acute Plan The patient presented to the emergency department for evaluation of substernal chest pain radiating to the arms associated with nausea and shortness of breath which awakened him from sleep this morning as detailed in HPI. Labs, imaging, EKG, and all reports were personally reviewed. Initial troponin was normal and EKG did not show any significant changes compared to prior tracings. Given his cardiac history he is being admitted for close monitoring however it seems atypical for cardiac pain. Consider GI etiology given history of duodenal ulcers though he denies other associated symptoms. Continue PPI. CT shows fecal stasis and concerns for fecal impaction and he has been started on a bowel regimen. Not likely musculoskeletal in etiology. While his lipase is elevated, his abdominal exam is completely benign and CT did not show any findings of pancreatitis. CT scan also shows findings of possible early diverticulitis but again his abdominal exam is benign. As he is afebrile and with normal white blood cell count, will hold on antibiotics. Continue to trend lipase and troponins. Will add PT/OT. 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 The patient provides the following history. He was admitted to the hospital a couple of weeks ago with recurrent falls and family members were hoping he could go to long-term for rehab however he did so well in physical therapy that he did not qualify. Unfortunately it sounds as though he continues to have falls at home but luckily he has not injured himself. He has otherwise been doing okay but does mention an episode a couple of nights ago of having lower abdominal cramping after eating scrambled eggs but that since resolved. Last night he was in his usual state of health when he went to bed but he was wakened from sleep at about 03:00 with a severe burning pain in the substernal region radiating to both arms associated with shortness of breath and nausea. He took 2 Tylenol and was able to fall back asleep however his symptoms were still there when he woke up and he called 911. EMS administered nitroglycerin and aspirin 324 mg and he has been without discomfort since that time. The time my evaluation he is in good spirits and denies fever, chills, sweats, vertigo, chest pain, pleuritic pain, shortness of breath, palpitations, abdominal pain, epigastric pain, bloating, belching, vomiting, diarrhea, and dysuria. In the ED: Vital signs were stable on arrival. Labs are significant for WBC count 6.7, hemoglobin 13.3, sodium 135, glucose 128, troponin less than 0.012, lipase 1008. EKG showed sinus rhythm with first-degree AV block, left axis deviation, right bundle-branch block, and probably old anterior [place] (no significant change compared to prior tracings). CTA of the chest, abdomen, and pelvis showed findings consistent with acute/early diverticulitis in the rectosigmoid colon and fecal impaction, no aortic dissection or aneurysmal dilatation, and no large filling defects within the main pulmonary arteries (poor opacifications of the pulmonary arteries insufficient to evaluate for pulmonary embolus). 03/08 pt is seen and examined. NO chest pain, no acute complains. He had been falling lately at home, balance is off Review of Systems Review of Systems: 12 systems were reviewed and are negative except for as per HPI. Exam Narrative: General: Nontoxic-appearing male supine in bed in no acute distress. Weight: 62.4 kg. BMI: 19.7. HEENT: Wearing corrective lenses. PERRL, EOMI. Sclera anicteric. Oral mucosa moist. Neck: Supple. No JVD. Respiratory: Lungs are clear to auscultation bilaterally. Cardiovascular: Regular rate and rhythm with S1-S2. Chest: No tenderness to palpation over the chest wall. Gastrointestinal: Abdomen is soft, scaphoid, nontender, and nondistended with positive bowel sounds. No guarding or rebound tenderness. Skin: Warm and dry. Extremities: No cyanosis, clubbing, or edema. Radial and pedal pulses intact. Neurological: Alert. Cranial nerves 2-12 are grossly intact. Generally weak without gross focal findings. Psychiatric: Pleasant and cooperative with normal mood and affect. Judgment and insight intact. Objective Data Vital Signs Vital Signs: Vital Signs - 24 hr 03/07/24 11:30 03/07/24 12:00 03/07/24 13:00 Temperature Pulse Rate 66 64 68 Respiratory Rate 14 22 H 14 Blood Pressure 115/62 129/71 120/65 Pulse Oximetry 100 100 100 Oxygen Delivery 03/07/24 15:00 03/07/24 15:30 03/07/24 17:39 Temperature 98.2 F Pulse Rate 85 75 84 Respiratory Rate 16 15 18 Blood Pressure 121/64 122/66 140/73 Pulse Oximetry 100 98 100 Oxygen Delivery 03/07/24 18:00 03/07/24 18:00 03/07/24 19:19 Temperature 98.0 F Pulse Rate 89 78 Respiratory Rate 16 Blood Pressure 122/56 L Pulse Oximetry 100 Oxygen Delivery Room Air 03/07/24 20:00 03/07/24 20:20 03/07/24 22:00 Temperature Pulse Rate 78 78 74 Respiratory Rate 16 Blood Pressure Pulse Oximetry 100 Oxygen Delivery Room Air 03/08/24 00:00 03/08/24 00:10 03/08/24 00:10 Temperature 97.4 F L Pulse Rate 73 70 70 Respiratory Rate 20 20 Blood Pressure 122/74 Pulse Oximetry 98 98 Oxygen Delivery Room Air 03/08/24 02:00 03/08/24 04:00 03/08/24 04:30 Temperature 97.4 F L Pulse Rate 65 61 81 Respiratory Rate 20 Blood Pressure 140/62 Pulse Oximetry 97 Oxygen Delivery 03/08/24 04:30 03/08/24 06:00 03/08/24 08:00 Temperature 98 F Pulse Rate 81 77 74 Respiratory Rate 20 20 Blood Pressure 127/68 Pulse Oximetry 97 98 Oxygen Delivery Room Air 03/08/24 08:00 Temperature Pulse Rate Respiratory Rate Blood Pressure Pulse Oximetry Oxygen Delivery Room Air Intake/Output Intake/Output: Intake & Output 03/05/24 03/06/24 03/07/24 03/08/24 23:59 23:59 23:59 23:59 Intake Total 240 730 Output Total 120 275 Balance 120 455 Meds/Results Medications: Active Medications Generic Name Dose Route Start Last Admin Trade Name Freq PRN Reason Stop Dose Admin Acetaminophen 650 mg 03/07/24 13:41 03/07/24 17:43 Acetaminophen 325 Mg Tablet PO 650 mg Q6H PRN Administration Mild Pain (1-3) or Fever Ascorbic Acid 500 mg 03/08/24 09:00 03/08/24 09:07 Ascorbic Acid 500 Mg Tablet PO 500 mg DAILY EMELINA Administration Clopidogrel Bisulfate 75 mg 03/08/24 09:00 03/08/24 09:07 Clopidogrel Bisulfate 75 Mg Tablet PO 75 mg DAILY EMELINA Administration Ferrous Sulfate 325 mg 03/08/24 09:00 03/08/24 09:07 Ferrous Sulfate [address] BY MOUTH 325 mg DAILY EMELINA Administration Fish Oil 1 gm 03/08/24 09:00 03/08/24 09:07 [place] 3 Polyunsat Fatty Acids 1 Gm Cap PO 1 gm DAILY EMELINA Administration Levetiracetam 1,000 mg 03/07/24 21:00 03/08/24 09:07 Levetiracetam 500 Mg Tablet PO 1,000 mg Q12H EMELINA Administration Metoprolol Succinate 50 mg 03/08/24 09:00 03/08/24 09:07 Metoprolol Succinate Ext Rel 50 Mg Tabcr PO 50 mg DAILY EMELINA Administration Morphine Sulfate 2 mg 03/07/24 13:41 Morphine Sulfate (*Crx) 2 Mg/Ml Inj IV PUSH Q4H PRN Pain Rated 7-10 Multivitamins/Minerals 1 tablet 03/08/24 09:00 03/08/24 09:07 Opti-Gen Tab PO 1 tablet DAILY EMELINA Administration Multivitamins/Minerals 1 tablet 03/07/24 21:00 03/07/24 23:40 Opti-Gen Tab PO 1 tablet Q12HR EMELINA Administration Nitroglycerin 0.4 mg 03/07/24 13:41 Nitroglycerin Sl 0.4 Mg Tablet SUBLINGUAL Q5MIN PRN Chest Pain Non-Formulary Medication 1 each 03/07/24 20:15 Nonformulary Nutritional Supplement XX 03/08/24 20:14 PRN PRN PROTOCOL Pantoprazole Sodium 40 mg 03/07/24 21:00 03/08/24 09:07 Pantoprazole 40 Mg Tablet PO 40 mg Q12H EMELINA Administration Polyethylene Glycol 17 gm 03/08/24 09:00 03/08/24 09:07 Polyethylene Glycol 3350 17 Gm Powd.Pack PO 17 gm QAM EMELINA Administration Rosuvastatin Calcium 40 mg 03/08/24 09:00 03/08/24 09:07 Rosuvastatin 20 Mg Tablet PO 40 mg DAILY EMELINA Administration Vitamin B Complex 1 cap 03/08/24 09:00 03/08/24 09:07 Vitamin B Complex Capsule PO 1 cap DAILY EMELINA Administration Vitamin D 5,000 units 03/08/24 09:00 03/08/24 09:07 Cholecalciferol 5,000 Units Tablet BY MOUTH 5,000 units DAILY EMELINA Administration Radiology Results: ITS Impressions Chest X-Ray 03/07/24 09:15 IMPRESSION: Coarse interstitial lung markings, likely chronic, without focal infiltrate or effusion. Chest/Abdomen/Pelvis CTA 03/07/24 11:12 IMPRESSION: Findings consistent with acute/early diverticulitis in the rectosigmoid colon. Fecal impaction. No aortic dissection or aneurysmal dilatation. No large filling defects within the main and proximal pulmonary arteries Labs Labs: Laboratory Results - last 24 hr 03/07/24 03/07/24 03/08/24 11:45 14:58 05:06 WBC 7.6 RBC 3.93 L Hgb 13.0 L Hct 38.9 L MCV 99.0 MCH 33.1 MCHC 33.4 RDW 12.6 Plt Count 203 MPV 8.4 Immature Gran % (Auto) 0.7 H Neut % (Auto) 68.7 Lymph % (Auto) 15.2 L [place] % (Auto) 10.7 H Eos % (Auto) 3.6 Baso % (Auto) 1.1 Lymph # (Auto) 1.15 [place] # (Auto) 0.8 H Eos # (Auto) 0.3 Baso # (Auto) 0.1 Abs Immat Gran (auto) 0.05 H Absolute Neuts (auto) 5.2 Absolute Nucleated RBC 0.000 Nucleated RBC % 0.0 Sodium 135 L Potassium 4.2 Chloride 102 Carbon Dioxide 26 Anion Gap 7 BUN 14 Creatinine 0.80 Estim Creat Clear Calc 53 Estimated GFR > 60 Glucose 85 Calcium 9.0 Magnesium 1.9 Troponin I 0.012 < 0.012 Lipase 109 Quality VTE Prophylaxis VTE prophylaxis: mechanical ordered
--- NOTE | 2024-03-08 16:58 | PC.NURSE ---
This patient, Ramiro Enciso, was received from [IMU ] on 03/08/24 at 1658. Patient/family oriented to unit policies and routines
[2024-03-08] MEDS: ACETAMINOPHEN 325 MG TABLET 650 MG PO (18:13)
[2024-03-09] VITALS (8 sets, daily range): BP systolic 100–136; BP diastolic 53–68; PULSE 60–81; RESP 16–18; TEMP 36.3–36.6; O2SAT 96–99; BMI 18.9
[2024-03-09] MEDS: OMEGA 3 POLYUNSAT FATTY ACIDS 1 GM CAP PO (08:23)
[2024-03-09] MEDS: METOPROLOL SUCCINATE EXT REL 50 MG TABCR PO (08:23)
[2024-03-09] MEDS: CLOPIDOGREL BISULFATE 75 MG TABLET PO (08:23)
[2024-03-09] MEDS: levETIRAcetam 500 MG TABLET 1000 MG PO ×2 (08:23→20:46)
[2024-03-09] MEDS: FERROUS SULFATE 325 MG TABLET DR BY MOUTH (08:23)
[2024-03-09] MEDS: OPTI-GEN TAB 1 TABLET PO (08:23)
[2024-03-09] MEDS: ASCORBIC ACID 500 MG TABLET PO (08:23)
[2024-03-09] MEDS: CHOLECALCIFEROL 5,000 UNITS TABLET 5000 UNITS BY MOUTH (08:23)
[2024-03-09] MEDS: PANTOPRAZOLE 40 MG TABLET PO ×2 (08:23→20:46)
[2024-03-09] MEDS: ROSUVASTATIN 20 MG TABLET 40 MG PO (08:23)
[2024-03-09] MEDS: VITAMIN B COMPLEX CAPSULE 1 CAP PO (08:24)
[2024-03-09] MEDS: polyethylene glycoL 3350 17 GM POWD.PACK PO (08:24)
--- NOTE | 2024-03-09 09:01 | P.PNIM_ITS ---
Progress Note: A&P Assessment and Plan (1) Chest pain: Qualifiers: Chest pain type: unspecified Qualified Code(s): R07.9 - Chest pain, unspecified Code(s): R07.9 - Chest pain, unspecified Status: Acute (2) Elevated lipase: Code(s): R74.8 - Abnormal levels of other serum enzymes Status: Acute (3) Coronary artery disease: Code(s): I25.10 - Atherosclerotic heart disease of [place] coronary artery without angina pectoris Status: Acute (4) Fecal impaction: Code(s): K56.41 - Fecal impaction Status: Acute (5) Essential (primary) hypertension: Code(s): I10 - Essential (primary) hypertension Status: Chronic (6) Diet-controlled diabetes mellitus: Code(s): E11.9 - Type 2 diabetes mellitus without complications Status: Acute Plan The patient presented to the emergency department for evaluation of substernal chest pain radiating to the arms associated with nausea and shortness of breath which awakened him from sleep Initial troponin was normal and EKG did not show any significant changes compared to prior tracings. Given his cardiac history he is being admitted for close monitoring however it seems atypical for cardiac pain. Consider GI etiology given history of duodenal ulcers though he denies other associated symptoms. Continue PPI. CT shows fecal stasis and concerns for fecal impaction and he has been started on a bowel regimen. Had BM. Abd is soft. His lipase is elevated but it returned back to normal. Abdominal exam is completely benign and CT did not show any findings of pancreatitis. CT scan also shows findings of possible early diverticulitis but again his abdominal exam is benign. As he is afebrile and with normal white blood cell count, will hold on antibiotics. 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 The patient provides the following history. He was admitted to the hospital a couple of weeks ago with recurrent falls and family members were hoping he could go to [facility] for rehab however he did so well in physical therapy that he did not qualify. Unfortunately it sounds as though he continues to have falls at home but luckily he has not injured himself. He has otherwise been doing okay but does mention an episode a couple of nights ago of having lower abdominal cramping after eating scrambled eggs but that since resolved. Last night he was in his usual state of health when he went to bed but he was wakened from sleep at about 03:00 with a severe burning pain in the substernal region radiating to both arms associated with shortness of breath and nausea. He took 2 Tylenol and was able to fall back asleep however his symptoms were still there when he woke up and he called 911. EMS administered nitroglycerin and aspirin 324 mg and he has been without d iscomfort since that time. The time my evaluation he is in good spirits and denies fever, chills, sweats, vertigo, chest pain, pleuritic pain, shortness of breath, palpitations, abdominal pain, epigastric pain, bloating, belching, vomiting, diarrhea, and dysuria. In the ED: Vital signs were stable on arrival. Labs are significant for WBC count 6.7, hemoglobin 13.3, sodium 135, glucose 128, troponin less than 0.012, lipase 1008. EKG showed sinus rhythm with first-degree AV block, left axis deviation, right bundle-branch block, and probably old anterior [place] (no significant change compared to prior tracings). CTA of the chest, abdomen, and pelvis showed findings consistent with acute/early diverticulitis in the rectosigmoid colon and fecal impaction, no aortic dissection or aneurysmal dilatation, and no large filling defects within the main pulmonary arteries (poor opacifications of the pulmonary arteries insufficient to evaluate for pulmonary embolus). 03/08 pt is seen and examined. NO chest pain, no acute complains. He had been falling lately at home, balance is off 03/09- had BM. working with pt/ot. discussed with son- pt and moving to [facility]. anticipate discharge tomorrow if stable overnight. Review of Systems Review of Systems: 12 systems were reviewed and are negativ e except for as per HPI. Exam Narrative: General: Nontoxic-appearing male supine in bed in no acute distress. Weight: 62.4 kg. BMI: 19.7. HEENT: Wearing corrective lenses. PERRL, EOMI. Sclera anicteric. Oral mucosa moist. Neck: Supple. No JVD. Respiratory: Lungs are clear to auscultation bilaterally. Cardiovascular: Regular rate and rhythm with S1-S2. Chest: No tenderness to palpation over the chest wall. Gastrointestinal: Abdomen is soft, scaphoid, nontender, and nondistended with positive bowel sounds. No guarding or rebound tenderness. Skin: Warm and dry. Extremities: No cyanosis, clubbing, or edema. Radial and pedal pulses intact. Neurological: Alert. Cranial nerves 2-12 are grossly intact. Generally weak without gross focal findings. Psychiatric: Pleasant and cooperative with normal mood and affect. Judgment and insight intact. Objective Data Vital Signs Vital Signs: Vital Signs - 24 hr 03/08/24 10:00 03/08/24 12:00 03/08/24 12:00 Temperature 97.7 F Pulse Rate 78 73 Respiratory Rate 18 Blood Pressure 122/61 Pulse Oximetry 100 Oxygen Delivery Room Air 03/08/24 12:00 03/08/24 15:50 03/08/24 16:00 Temperature 98.9 F Pulse Rate 72 58 L Respiratory Rate 18 Blood Pressure 123/53 L Pulse Oximetry 100 Oxygen Delivery Room Air 03/08/24 21:44 03/09/24 00:00 03/09/24 06:05 Temperature 97.4 F L 97.7 F Pulse Rate 61 60 Respiratory Rate 18 18 Blood Pressure 123/61 136/65 Pulse Oximetry 97 96 Oxygen Delivery Room Air 03/09/24 08:23 Temperature Pulse Rate 81 Respiratory Rate Blood Pressure Pulse Oximetry Oxygen Delivery Intake/Output Intake/Output: Intake & Output 03/06/24 03/07/24 03/08/24 03/09/24 23:59 23:59 23:59 23:59 Intake Total 240 1310 Output Total 120 275 850 Balance 120 1035 -850 Meds/Results Medications: Active Medications Generic Name Dose Route Start Last Admin Trade Name Freq PRN Reason Stop Dose Admin Acetaminophen 650 mg 03/07/24 13:41 03/08/24 18:13 Acetaminophen 325 Mg Tablet PO 650 mg Q6H PRN Administration Mild Pain (1-3) or Fever Ascorbic Acid 500 mg 03/08/24 09:00 03/09/24 08:23 Ascorbic Acid 500 Mg Tablet PO 500 mg DAILY EMELINA Administration Clopidogrel Bisulfate 75 mg 03/08/24 09:00 03/09/24 08:23 Clopidogrel Bisulfate 75 Mg Tablet PO 75 mg DAILY EMELINA Administration Ferrous Sulfate 325 mg 03/08/24 09:00 03/09/24 08:23 Ferrous Sulfate [address] BY MOUTH 325 mg DAILY EMELINA Administration Fish Oil 1 gm 03/08/24 09:00 03/09/24 08:23 [place] 3 Polyunsat Fatty Acids 1 Gm Cap PO 1 gm DAILY EMELINA Administration Levetiracetam 1,000 mg 03/07/24 21:00 03/09/24 08:23 Levetiracetam 500 Mg Tablet PO 1,000 mg Q12H EMELINA Administration Metoprolol Succinate 50 mg 03/08/24 09:00 03/09/24 08:23 Metoprolol Succinate Ext Rel 50 Mg Tabcr PO 50 mg DAILY [facility] Administration Morphine Sulfate 2 mg 03/07/24 13:41 Morphine Sulfate (*Crx) 2 Mg/Ml Inj IV PUSH Q4H PRN Pain Rated 7-10 Multivitamins/Minerals 1 tablet 03/08/24 09:00 03/09/24 08:23 Opti-Gen Tab PO 1 tablet DAILY EMELINA Administration Nitroglycerin 0.4 mg 03/07/24 13:41 Nitroglycerin Sl 0.4 Mg Tablet SUBLINGUAL Q5MIN PRN Chest Pain Pantoprazole Sodium 40 mg 03/07/24 21:00 03/09/24 08:23 Pantoprazole 40 Mg Tablet PO 40 mg Q12H EMELINA Administration Polyethylene Glycol 17 gm 03/08/24 09:00 03/09/24 08:24 Polyethylene Glycol 3350 17 Gm Powd.Pack PO 17 gm QAM [facility] Administration Rosuvastatin Calcium 40 mg 03/08/24 09:00 03/09/24 08:23 Rosuvastatin 20 Mg Tablet PO 40 mg DAILY EMELINA Administration Vitamin B Complex 1 cap 03/08/24 09:00 03/09/24 08:24 Vitamin B Complex Capsule PO 1 cap DAILY EMELINA Administration Vitamin D 5,000 units 03/08/24 09:00 03/09/24 08:23 Cholecalciferol 5,000 Units Tablet BY MOUTH 5,000 units DAILY EMELINA Administration Radiology Results: ITS Impressions Chest X-Ray 03/07/24 09:15 IMPRESSION: Coarse interstitial lung markings, likely chronic, without focal infiltrate or effusion. Chest/Abdomen/Pelvis CTA 03/07/24 11:12 IMPRESSION: Findings consistent with acute/early diverticulitis in the rectosigmoid colon. Fecal impaction. No aortic dissection or aneurysmal dilatation. No large filling defects within the main and proximal pulmonary arteries Quality VTE Prophylaxis VTE prophylaxis: mechanical ordered
[2024-03-09] MEDS: ACETAMINOPHEN 325 MG TABLET 650 MG PO (14:18)
[2024-03-10] MEDS: ACETAMINOPHEN 325 MG TABLET 650 MG PO (00:16)
[2024-03-10 08:00] VITALS: BP 115/62; PULSE 62; RESP 16; TEMP 37.1; O2SAT 97
[2024-03-10 09:14] VITALS: PULSE 64
[2024-03-10] MEDS: FERROUS SULFATE 325 MG TABLET DR BY MOUTH (09:14)
[2024-03-10] MEDS: METOPROLOL SUCCINATE EXT REL 50 MG TABCR PO (09:14)
[2024-03-10] MEDS: CHOLECALCIFEROL 5,000 UNITS TABLET 5000 UNITS BY MOUTH (09:14)
[2024-03-10] MEDS: ROSUVASTATIN 20 MG TABLET 40 MG PO (09:14)
[2024-03-10] MEDS: OPTI-GEN TAB 1 TABLET PO (09:14)
[2024-03-10] MEDS: CLOPIDOGREL BISULFATE 75 MG TABLET PO (09:14)
[2024-03-10] MEDS: levETIRAcetam 500 MG TABLET 1000 MG PO (09:14)
[2024-03-10] MEDS: ASCORBIC ACID 500 MG TABLET PO (09:14)
[2024-03-10] MEDS: OMEGA 3 POLYUNSAT FATTY ACIDS 1 GM CAP PO (09:14)
[2024-03-10] MEDS: PANTOPRAZOLE 40 MG TABLET PO (09:14)
[2024-03-10] MEDS: VITAMIN B COMPLEX CAPSULE 1 CAP PO (09:14)
[2024-03-10 12:10] LABS: SARS-CoV-2 RNA PCR Positive (Negative)
--- NOTE | 2024-03-10 15:50 | ADMGEN ---
This patient, Ramiro Enciso, was admitted to Medical Room 249-01. Patient/family oriented to hospital policies and general routines including ID bracelet, bed and alarms, visiting hours, pain management, procedures, bathroom and other care routines, personal items, smoking policy, room service/diet, and visiting hours. Information on how to activate the Rapid Response Team has been discussed. Patient/Family are encouraged to report perceived risks to care and to ask questions if they do not understand what they are told or what they should do.
[2024-03-10 16:00] VITALS: BP 118/64; PULSE 64; RESP 17; TEMP 37.2; O2SAT 97
--- NOTE | 2024-03-10 16:21 | P.DS_ITS ---
DS: Admitting Diagnosis Discharge Date 03/10/24 Admitting Diagnosis Chest Discomfort DS: Discharge Diagnosis Discharge Diagnosis (1) Chest pain: Qualifiers: Chest pain type: unspecified Qualified Code(s): R07.9 - Chest pain, unspecified Code(s): R07.9 - Chest pain, unspecified Status: Acute Assessment and Plan: Acute. (2) Elevated lipase: Code(s): R74.8 - Abnormal levels of other serum enzymes Status: Acute Assessment and Plan: Acute. (3) Coronary artery disease: Code(s): I25.10 - Atherosclerotic heart disease of [place] coronary artery without angina pectoris Status: Acute Assessment and Plan: Chronic. (4) Fecal impaction: Code(s): K56.41 - Fecal impaction Status: Acute Assessment and Plan: Acute. (5) Essential (primary) hypertension: Code(s): I10 - Essential (primary) hypertension Status: Chronic Assessment and Plan: Chronic. (6) Diet-controlled diabetes mellitus: Code(s): E11.9 - Type 2 diabetes mellitus without complications Status: Acute Assessment and Plan: Chronic. Plan Discharge to Assisted Living Facility DS: Summary Hospital Course Reason for hospitalization: Chest Discomfort Hospital Course: The patient presented to the emergency department for evaluation of substernal chest pain radiating to the arms, associated with nausea and shortness of breath which awakened him from sleep. Patient had a set of three negative serial troponin. EKG did not show any significant changes compared to prior tracings. Given his cardiac history he was admitted for close monitoring however it seems atypical for cardiac pain. Given history of duodenal ulcers though he denied associated symptoms, he was Continued on PPI. Pt reported GI discomfort and had CT abd/pelvis done showing fecal stasis with concerns for fecal impaction. He was started on a bowel regimen and has been having regular BM's, including before his discharge, with his GI symptoms resolving. Patient also had a single episode of lipase elevation but repeat was normal with no interventions. His abdominal exam is completely benign and CT did not show any findings of pancreatitis. CT scan also shows findings of possible early diverticulitis but again his abdominal exam is benign, tolerating regular cardiac diet well with no symptoms, afebrile and with normal white blood cell count. Antibiotics therapy was not implemented. Patient had no seizure episode inpatient with his Hx of epilepsy, with all his other chronic conditions remaining stable inpatient. Patient worked with PT/OT and has been deemed safe for discharge to assisted living facility. Patient is medically stable for discharge with no acute distress noted or reported prior to discharge. Status at Discharge Functional status at discharge: uses cane/walker Overall status at discharge: patient is progressing back to baseline Time Spent with Patient Time attestation: Total time spent providing and/or coordinating discharge services: Time spent: Greater than 30 minutes Exam Narrative: General: Nontoxic-appearing male supine in bed in no acute distress, gen muscle weakness. HEENT: PERRL, EOMI. Sclera anicteric. Oral mucosa moist. Neck: Supple. No JVD. Respiratory: Lungs are clear to auscultation bilaterally. Cardiovascular: Regular rate and rhythm with S1-S2. Chest: No tenderness to palpation over the chest wall. Gastrointestinal: Abdomen is soft, nontender, and nondistended with positive bowel sounds. No guarding or rebound tenderness. Skin: Warm and dry. Extremities: No cyanosis, clubbing, or edema. Radial and pedal pulses intact. Neurological: Alert and fairly oriented. Cranial nerves 2-12 are grossly intact. Generally weak without gross focal findings. Psychiatric: Pleasant and cooperative with normal mood and affect. DS: Data Data Completed and Pending Labs on day of discharge: Labs from last 24 hours 03/10/24 11:27 SARS-CoV-2 RNA (RT-PCR) Positive A Discharge Plan Discharge Attending physician on discharge: Lana Brody Discharging Clinician: Rob Prado Anticipated Discharge Date/Time: 03/10/24 16:38 Patient Disposition: NH Residential/Asst Living Activity: as tolerated Diet: heart healthy Patient Instructions: Antibiotic Form Patient Language: Bermudian Stand Alone Forms: General Discharge Information Follow-up/Referrals: David Ramon MD [Primary Care Provider] - 1 Week Discharge Medications: New polyethylene glycol 3350 [Miralax] 17 gram Powder In Packet 17 g PO QAM Qty: 14 0RF Continued clopidogrel 75 mg tablet 75 mg PO DAILY Qty: 90 1RF metoprolol succinate 50 mg tablet extended release 24 hr 50 mg PO DAILY Qty: 100 1RF rosuvastatin 40 mg tablet 40 mg PO DAILY Qty: 90 1RF coenzyme Q10 100 mg capsule 200 mg PO DAILY cholecalciferol (vitamin D3) 125 mcg (5,000 unit) capsule 50 mcg PO DAILY acetaminophen 500 mg capsule 500 mg PO BID omega 5-mxo-aug-fish oil [Fish Oil] 1,200 (144-216) mg capsule 1 cap PO DAILY ferrous sulfate 325 mg (65 mg iron) tablet 325 mg PO DAILY Qty: 90 0RF ascorbic acid (vitamin C) 500 mg Tablet 500 mg PO DAILY vitamin B complex [B Complex-Vitamin B12] Tablet 1 tablet PO DAILY PreserVision AREDS-2 250-90-40-1 mg Capsule 1 tablet PO .q12hr lruhkfrwnoni-xmpbvody-fnwbsz Tablet 1 tablet PO DAILY pantoprazole [Protonix] 40 mg tablet,delayed release (DR/EC) 40 mg PO Q12H levetiracetam 1,000 mg tablet 1,000 mg PO Q12H Other Ambulatory Orders: OT Outpatient Eval and Treat (ONCE) Timeframe: 20240410 Location: Determined by Patient Ordered By: Rob Prado PT Outpatient Eval and Treat (ONCE) Timeframe: 20240410 Location: Determined by Patient Ordered By: Rob Prado Date of admission: 03/07/24 12:55 Primary Care Provider: David Ramon Admitting Provider: Lana Brody Attending physician on admission: Lana Brody Condition: Serious Quality If No VTE Prophylaxis Answer both mechanical and pharmacologic: Reason no mechanical VTE proph: low risk/not indicated Reason no pharmacologic proph: low risk/not indicated Hospitalist MIPS Heart Failure (Exclusion) Patient has history of Heart Transplant or Left Ventricular Assistive Device?: No IF YES, STOP HERE Heart Failure (Qualifier) Patient has current or prior documentation of LVEF less than or equal to 40%, or mod/servere depressed LVSF?: No IF NO, STOP HERE
--- OUTSIDE RECORDS SUMMARY | 2024-03-11 10:49 | XMS_ITS | Referral Summary ---
Author Organization [facility] [address] Address [address] [place] [address] Care Team Providers Care Buckle Attaching Machine Operator Name Role Phone David Ramon MD Primary Care Provider Allergies No known active allergies Medications pantoprazole [...] 02/01/2021 Assessment & Plan (03/07/2021 1:56 PM HARDWARE DESIGN ENGINEER): Followed by his PCP chronic and stable. I recommend that he continues to take his Lipitor as cholesterol lowering medication will help keep the stent patent. Assessment & Plan (02/01/2021 11:28 AM HARDWARE DESIGN ENGINEER): Chronic and stable. Patient was encouraged to make sure he continues his Lipitor as keeping on his cholesterol medication will help with the patency of his stent. I discussed with him that if he continues to smoke, have elevated blood pressure that is uncontrolled or elevated cholesterol that is uncontrolled than this stent can occlude. He understands. 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 He has done well since that time and is able to tolerate food without any abdominal pain and no more weight loss. I will have him follow up in 3 months with a repeat mesenteric artery duplex. Assessment & Plan (02/01/2021 11:31 AM HARDWARE DESIGN ENGINEER): Patient had SMA stenosis and underwent stent placement. He has done well since the placement of the stent as he is no longer having any pain and able to eat what he would like to eat. I will have him follow up in 1 month with a mesenteric artery duplex for stent surveillance. Assessment & Plan (01/09/2021 11:26 AM HARDWARE DESIGN ENGINEER): Patient has superior mesenteric artery stenosis as [...] proceed. Assessment & Plan (12/29/2020 9:58 AM HARDWARE DESIGN ENGINEER): Patient does have SMA stenosis seen on [...] 12/29/2020 Assessment & Plan (03/07/2021 1:57 PM HARDWARE DESIGN ENGINEER): Patient is currently continuing to smoke but [...] quit. Assessment & Plan (02/01/2021 11:31 AM HARDWARE DESIGN ENGINEER): Patient is continuing to use tobacco and [...] . Assessment & Plan (01/09/2021 11:25 AM HARDWARE DESIGN ENGINEER): We once again discussed smoking cessation. He [...] down. Assessment & Plan (12/29/2020 9:57 AM HARDWARE DESIGN ENGINEER): Patient used to smoke cigarettes and now [...] 12/29/2020 Assessment & Plan (03/07/2021 1:56 PM HARDWARE DESIGN ENGINEER): Followed by his PCP and chronic and stable. I recommend he continue his Norvasc and metoprolol. Good blood pressure control will also help with patency of his stent. 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 Assessment & Plan (02/01/2021 11:29 AM HARDWARE DESIGN ENGINEER): Chronic and stable and followed by his PCP. Patient will continue his Norvasc and metoprolol. Again good blood pressure control will help with the patency of his stent. Assessment & Plan (01/09/2021 11:24 AM HARDWARE DESIGN ENGINEER): Followed by his PCP and controlled on his current medications. Assessment & Plan (12/29/2020 9:57 AM HARDWARE DESIGN ENGINEER): Followed by his PCP and controlled on his current medications. Coronary artery disease invo lving [place] coronary artery of [place] heart 12/18/2020 Assessment & Plan (03/07/2021 1:58 PM HARDWARE DESIGN ENGINEER): Patient underwent cardiac stenting previously. He had [...] needs to make an appointment with his shore working supervisor as well. Assessment & Plan (12/29/2020 9:58 AM HARDWARE DESIGN ENGINEER): Patient has coronary artery disease and underwent stent placement. History of coronary artery stent placement 06/17 Assessment & Plan (01/09/2021 11:26 AM HARDWARE DESIGN ENGINEER): Patient has stents placed before and has [...] on file Medical Devices Implanted Type Area Table Lever Operator Device Identifier Shelf Expiration Date Model / Serial / Lot Coleman Vascular Device Clsr Perclose Prostyle Sut-Mediatd Closure-Repai r Sys 53229-33 - S0 - [id number] Implanted:Qty : 1 on 07/13/2021 by Hamlet Marte MD at [facility] Other - see comments Right: Femoral [employer] 06/17/2023 [id number] / 0 / [id number] Description:Fem Art Closure Device [place] [employer] Gilma Stent Drug Eluting S Megatron Mr 5.92s00li [id number] - S0 - [id number] Implanted:Qty : 1 on 07/13/2021 by Hamlet Marte MD at [facility] Stent N/A: Coronary [place] [employer] Gil[employer] 09/13/2021 [id number] / 0 / [id number] Description:Ost RCA Bard Peripheral Vascular [id number] Lifestream 6mm 26mm 80cm Balloon Expandable Low Profile Cover - [id number] Implanted:Qty : 1 on 01/16/2021 by Rosalva Simmons MD at [facility] Peripheral Vascular 05/17/2022 [id number] / / [id number] Coleman Vascular [id number] Perclose 6fr Suture Mediate Knot Push Vascular Device Closure - [id number] Implanted:Qty : 1 on 01/16/2021 by Rosalva Simmons MD at [facility] [employer] 09/16/2022 [id number] / / [id number] Insurance [employer] MEDICARE GOLD [employer] MEDICARE GOLD Advance Directives For more information, please contact: [phone] * Full Code (Latest Code Status on File) Date Activated Date Inactivated Comments 07/13/2021 3:21 PM 07/14/2021 5:40 PM * Full Code Date Activated Date Inactivated Comments 01/16/2021 12:37 PM 01/16/2021 7:08 PM Care Teams Buckle Attaching Machine Operator Relationship Specialty Start Date End Date David Ramon MD [address] [place] [id number] PCP - General Family Medicine 01/09/21
--- OUTSIDE RECORDS SUMMARY | 2024-03-11 10:49 | XMS_ITS | Clinical Summary ---
Author Organization [facility] [address] Address [address] [place] [address] Care Team Providers Care Turn Operator Name Role Phone David Ramon MD Primary Care Provider [phone] Allergies No known active allergies Medications pantoprazole [...] 02/01/2021 Assessment & Plan (03/07/2021 1:56 PM GLUE SPREADING MACHINE OPERATOR): Followed by his PCP chronic and stable. I recommend that he continues to take his Lipitor as cholesterol lowering medication will help keep the stent patent. Assessment & Plan (02/01/2021 11:28 AM GLUE SPREADING MACHINE OPERATOR): Chronic and stable. Patient was encouraged to make sure he continues his Lipitor as keeping on his cholesterol medication will help with the patency of his stent. I discussed with him that if he continues to smoke, have elevated blood pressure that is uncontrolled or elevated cholesterol that is uncontrolled than this stent can occlude. He understands. 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 He has done well since that time and is able to tolerate food without any abdominal pain and no more weight loss. I will have him follow up in 3 months with a repeat mesenteric artery duplex. Assessment & Plan (02/01/2021 11:31 AM GLUE SPREADING MACHINE OPERATOR): Patient had SMA stenosis and underwent stent placement. He has done well since the placement of the stent as he is no longer having any pain and able to eat what he would like to eat. I will have him follow up in 1 month with a mesenteric artery duplex for stent surveillance. Assessment & Plan (01/09/2021 11:26 AM GLUE SPREADING MACHINE OPERATOR): Patient has superior mesenteric artery stenosis as [...] proceed. Assessment & Plan (12/29/2020 9:58 AM GLUE SPREADING MACHINE OPERATOR): Patient does have SMA stenosis seen on [...] 12/29/2020 Assessment & Plan (03/07/2021 1:57 PM GLUE SPREADING MACHINE OPERATOR): Patient is currently continuing to smoke but [...] quit. Assessment & Plan (02/01/2021 11:31 AM GLUE SPREADING MACHINE OPERATOR): Patient is continuing to use tobacco and [...] . Assessment & Plan (01/09/2021 11:25 AM GLUE SPREADING MACHINE OPERATOR): We once again discussed smoking cessation. He [...] down. Assessment & Plan (12/29/2020 9:57 AM GLUE SPREADING MACHINE OPERATOR): Patient used to smoke cigarettes and now [...] 12/29/2020 Assessment & Plan (03/07/2021 1:56 PM GLUE SPREADING MACHINE OPERATOR): Followed by his PCP and chronic and stable. I recommend he continue his Norvasc and metoprolol. Good blood pressure control will also help with patency of his stent. He also is going to see his primary care doctor next week and will likely need to see his human resource officer given his chest pain. Assessment & Plan (02/01/2021 11:29 AM GLUE SPREADING MACHINE OPERATOR): Chronic and stable and followed by his PCP. Patient will continue his Norvasc and metoprolol. Again good blood pressure control will help with the patency of his stent. Assessment & Plan (01/09/2021 11:24 AM GLUE SPREADING MACHINE OPERATOR): Followed by his PCP and controlled on his current medications. Assessment & Plan (12/29/2020 9:57 AM GLUE SPREADING MACHINE OPERATOR): Followed by his PCP and controlled on his current medications. Coronary artery disease invo lving [place] coronary artery of [place] heart 12/18/2020 Assessment & Plan (03/07/2021 1:58 PM GLUE SPREADING MACHINE OPERATOR): Patient underwent cardiac stenting previously. He had [...] needs to make an appointment with his human resource officer as well. Assessment & Plan (12/29/2020 9:58 AM GLUE SPREADING MACHINE OPERATOR): Patient has coronary artery disease and underwent stent placement. History of coronary artery stent placement 06/17 Assessment & Plan (01/09/2021 11:26 AM GLUE SPREADING MACHINE OPERATOR): Patient has stents placed before and has not had any chest pain or issues since that time. S/P drug eluting coronary stent placement Resolved Problems Problem Noted Date Diagnosed Date Resolved Date CAD (coronary artery disease) 07/13/2021 07/13/2021 Surgical History Surgery Date Site/Laterality Comments CORONARY ANGIOPLASTY 06/17/2020 - 07/17/2020 4 stents TOTAL KNEE ARTHROPLASTY Bilateral CATARACT EXTRACTION CHOLECYSTECTOMY VASCULAR SURGERY 01/16/2021 mesenteric artery angio, possible intervention Medical History Medical History Date Comments Hypertension Hyperlipidemia Coronary artery disease 06/2020 4 cardia c stents Cholelithiasis had gallbladder removed GERD (gastroesophageal reflux disease) Glaucoma Type 2 diabetes mellitus (HCC) d iet control no meds Seizures (HCC) last seizure 0/unknown cause Stroke (HCC) TIA's vs. seizur es no residual, felt funny and difficulty walking Family History Medical History Relation Name Comments Heart disease Father Relation Name Status Comments Father Social History Tobacco Use Types Packs/Day Years [...] on file Sexual Orientation Not on file Obstetrics History Last Filed Vital Signs Vital Sign Reading [...] 11/11/2023 12:01 PM CDT Plan of Treatment Health Maintenance Due Date Last Done Comments Depression Screening 1940 DTaP/Tdap/Td Vaccine (1 - Tdap) 07/26/1950 Hepatitis B Screening 07/26/1957 Zoster Vaccine (1 of 2) 07/26/1989 Pneumococcal vaccine 65+ (1 of 1 - PCV) 07/26/2004 Well Visit 65+ 07/26/2004 Fall Risk Assessment 07/14/2022 07/14/2021 Covid-19 Vaccine ( season) 2023 01/03/2021, 06/07/2020, 05/10/2020 Influenza Vaccine (#1) 2023 01/03/2021, 2012 Medical Devices Implanted Type Area Nurse Manager Device Identifier Shelf Expiration Date Model / Serial / Lot Coleman Vascular Device Clsr Perclose Prostyle Sut-Mediatd Closure-Repai r Sys 45626-42 - S0 - [id number] Implanted:Qty : 1 on 07/13/2021 by Hamlet Marte MD at [facility] Other - see comments Right: Femoral [employer] 06/17/2023 [id number] 0 / [id number] Description:Fem Art Closure Device [employer] Stent Drug Eluting S Megatron Us Mr [id number] - S0 - [id number] Implanted:Qty : 1 on 07/13/2021 by Hamlet Marte MD at [facility] Stent N/A: Coronary [employer] Gil[employer] 09/13/2021 [id number] / 0 / [id number] Description:Ost RCA Bard Peripheral Vascular [id number] Lifestream 6mm 26mm 80cm Balloon Expandable Low Profile Cover - [id number] Implanted:Qty : 1 on 01/16/2021 by Rosalva Simmons MD at [facility] [employer] Peripheral Vascular 05/17/2022 [id number] / / [id number] [employer] Vascular [id number] Perclose 6fr Suture Mediate Knot Push Vascular Device Closure - [id number] Implanted:Qty : 1 on 01/16/2021 by Rosalva Simmons MD at [facility] [employer] 09/16/2022 [id number] / / [id number] Insurance [address] [id number] [facility] MEDICARE [facility] MEDICARE [facility] Advance Directives For more information, please contact: [phone] * Full Code (Latest Code Status on File) Date Activated Date Inactivated Comments 07/13/2021 3:21 PM 07/14/2021 5:40 PM * Full Code Date Activated Date Inactivated Comments 01/16/2021 12:37 PM 01/16/2021 7:08 PM Care Teams Turn Operator Relationship Specialty Start Date End Date David Ramon MD [address] [place] [id number] PCP - General Family Medicine 01/09/21
== END 2024-03-10 18:48 ==
LOC: ANHED 12:57 → ANHIMU 16:40 → ANH2MED 03-08 17:25
PROVIDERS: Emergency Medicine; Nurse Practitioner Adult Health; Physician Assistant; Admitting Provider Hospitalist; Emergency Provider Preventive Medicine Aerospace Medicine; PCP Family Medicine; Visit Provider Hospitalist
DX: R07.9 Chest pain, unspecified (principal); R74.8 Abnormal levels of other serum enzymes; I25.10 Atherosclerotic heart disease of native coronary artery without angina pectoris; I11.9 Hypertensive heart disease without heart failure; I25.5 Ischemic cardiomyopathy; K56.41 Fecal impaction; E11.9 Type 2 diabetes mellitus without complications; U07.1 COVID-19; I70.8 Atherosclerosis of other arteries; K21.9 Gastro-esophageal reflux disease without esophagitis; K57.90 Diverticulosis of intestine, part unspecified, without perforation or abscess without bleeding; E78.5 Hyperlipidemia, unspecified; G40.909 Epilepsy, unspecified, not intractable, without status epilepticus; F41.1 Generalized anxiety disorder; H40.9 Unspecified glaucoma; Z79.899 Other long term (current) drug therapy; Z86.73 Personal history of transient ischemic attack (TIA), and cerebral infarction without residual deficits; Z87.11 Personal history of peptic ulcer disease; Z87.891 Personal history of nicotine dependence; Z95.5 Presence of coronary angioplasty implant and graft; Z95.828 Presence of other vascular implants and grafts; Z96.653 Presence of artificial knee joint, bilateral
CPT/HCPCS: 36415; 71046; 71275; 74174; 80048; 80053; 83690; 83735; 84484; 85025; 85610; 85730; 87635; 93005; 97161; 97165; 99212; 99285; A9270; G0378; G0463; Q9967

== ENCOUNTER 2024-08-16 10:23 | Inpatient (IN) | payer MEDICARE, SELFPAY ==
[2024-08-16] VITALS (16 sets, daily range): BP systolic 127–192; BP diastolic 60–156; PULSE 57–102; RESP 15–21; TEMP 36.4–36.8; O2SAT 96–100; BMI 23.3
--- NOTE | ~2024-08-16 | CT_ITS ---
EXAMINATION: CT brain wo con DATE: 08/16/2024 14:23 INDICATION: Weakness and dizziness TECHNIQUE: Computed tomography (CT) of the head was performed without intravenous contrast. Sagittal and coronal reconstructions were performed. The mA was adjusted according to patient size. Iterative reconstruction technique was employed. The dose-length product was 605.33 mGy-cm. COMPARISON: head CT dated 02/22/2024 and brain MR dated 02/23/2024 FINDINGS: There are small regions of encephalomalacia in the bilateral occipital lobes, in the right frontal an d parietal lobes and bilateral cerebellar hemispheres consistent with sequela of old infarcts. No acu te intracranial hemorrhage, acute infarction or abnormal extra axial fluid collection. There is mild scattered white matter hypoattenuation consistent with chronic small vessel ischemic disease. Symmetr ic prominence of the sulci consistent with mild age-appropriate diffuse cerebral volume loss. No mass /mass effect. Changes of right intraocular lens replacement. The orbits and paranasal sinuses are nor mal. Unchanged trace left mastoid effusion. IMPRESSION: 1. Multiple small old infarcts in the right frontal, parietal and bilateral occipital lobes and in th e bilateral cerebellar hemispheres. No acute intracranial process. Reviewed, dictated and finalized at location B. IMPRESSION: 1. Multiple small old infarcts in the right frontal, parietal and bilateral occ ipital lobes and in the bilateral cerebellar hemispheres. No acute intracranial process.
--- NOTE | ~2024-08-16 | XR_ITS ---
XR chest 2V Ordering provider: Gracie Toledo III, DO History: 84 years Male with . Chest pain, achy left sided pain . Comparison: March 07, 2024 FINDINGS: MEDIASTINUM: The cardiac silhouette is not enlarged. Slight widening of the superior mediastinum unch anged. LUNGS: No infiltrates, effusions or pneumothorax. OTHER: No free air under the diaphragm. Degenerative changes of the spine. IMPRESSION: No acute cardiopulmonary pathology. Reviewed, dictated and finalized at location A.
--- NOTE | ~2024-08-16 | CT_ITS ---
CT chest abdomen pelvis w con Ordering provider: José Johnson MD History: 84 years Male with . epigastric pain, stent hx . Comparison: March 07, 2024 Technique: CT chest with IV contrast. CT abdomen and pelvis CT abdomen and pelvis with IV and with or al contrast. Radiation reduction technique utilized.The dose-length product was 1023.94 mGy-cm. 100 mL Omnipaque 3 50 was given IV. FINDINGS: CHEST: --VISUALIZED THORACIC INLET: Multiple nodules in the thyroid gland with calcifications unchanged from previous examination. Retrosternal thyroid is noted. --MEDIASTINUM: Aorta/coronary arteries: Mild atheromatous disease. Heart/other: The heart is not enlarged. Lymph nodes: No mediastinal or hilar adenopathy. --LUNGS: No pulmonary nodules or masses. No infiltrates or effusions. No pneumothorax. Dependent atelectatic changes. --MUSCULOSKELETAL: Soft tissues: The superficial soft tissues are normal. Bones: Age appropriate degenerative changes of the spine. No suspicious bony lytic or sclerotic lesio ns. ABDOMEN/PELVIS: --MUSCULOSKELETAL: Bones: Age appropriate degenerative changes of the spine. No suspicious bony lytic or sclerotic lesio ns. Bilateral sacroiliacs. Bilateral hip moderate osteoarthritic changes. Postoperative changes in the ri ght femoral neck. Superficial soft tissues: Large left fat-containing inguinal hernia. The superficial soft tissues are normal. --UPPER ABDOMINAL ORGANS: Liver: Normal. Prominent vessels are seen near to the lower border of the right lobe of the liver whi ch may be varicosities versus arteriovenous malformation unchanged from previous examination Gallbladder: Status post cholecystectomy. Spleen: Normal. Stomach/duodenum: Duodenal diverticulum. Thickened lower esophagus which may indicate reflux esophagi tis. Pancreas: Normal. Adrenals: Normal. Kidneys: Small left renal cyst. Minimal dilatation in the lower portions of both ureters. No ureteric stones --PELVIC ORGANS: The bladder is normal. No bladder stones. --BOWEL AND MESENTERY: Colon: No evidence of diverticulitis. Fecal material is impacted in the rectum with fecal material s een in the rest of the colon.. Normal appendix. Small Bowel: Normal. No obstruction. Peritoneum/mesentery: No free air or free fluid. No mesenteric lymphadenopathy. --RETROPERITONEUM: Mild atheromatous disease of the abdominal aorta. Stent is seen in the superior m esenteric artery. No retroperitoneal lymphadenopathy. IMPRESSION: CHEST: 1. No pulmonary embolism. 2. No acute cardiopulmonary pathology. 3. 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 ABDOMEN/PELVIS: 1. No evidence of appendicitis, diverticulitis or intestinal obstruction. 2. Constipation. 3. Prominent vessels in the right upper quadrant unchanged from previous examination. 4. Large left fat-containing inguinal hernia. 5. Stent in the superior mesenteric artery with no evidence of occlusion. narrowing is possible Reviewed, dictated and finalized at location A. IMPRESSION: CHEST: 1. No pulmonary embolism. 2. No acute cardiopulmonary pathology. 3. 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 ABDOMEN/PELVIS: 1. No evidence of appendicitis, diverticulitis or intestinal obstruction. 2. Constipation. 3. Prominent vessels in the right upper quadrant unchanged from previous exami nation. 4. Large left fat-containing inguinal hernia. 5. Stent in the superior mesenteric artery with no evidence of occlusion. narr owing is possible
--- NOTE | 2024-08-16 10:25 | ECG_ITS ---
Test Date: 2024-08-16 10:34:48 Measurements Intervals [place] Rate: 72 P: 83 CT: 223 QRS: -70 QRSD: 120 T: 10 QT: 381 QTc: 418 Interpretive Statements SINUS RHYTHM WITH FIRST DEGREE AV BLOCK RIGHT BUNDLE BRANCH BLOCK LEFT ANTERIOR FASCICULAR BLOCK BASELINE ARTIFACT- I, II, III, AVR, AVL, AVF ABNORMAL ECG Compared to ECG 03/07/2024 14:56:49 No significant changes Electronically Signed On 08-16-2024 11:35:13 CDT by Kei Gonzalez D.O.
[2024-08-16] MEDS: FAMOTIDINE 20 MG/2 ML VIAL IV PUSH (13:09)
--- NOTE | 2024-08-16 13:12 | ED_ITS ---
HPI - Chest Pain General Chief Complaint: Chest Pain Stated Complaint: Chest pains Time Seen by Provider: 08/16/24 12:36 History of Present Illness HPI narrative: 84-year-old male with a past medical history including coronary artery disease with stenting, peptic ulcer disease with bleeding duodenal ulcer previously. Patient presents to the emergency department with epigastric chest discomfort associated with some weakness and dizziness today describes as lightheadedness and feeling he is going to pass out. Intermittent in nature for last few days and he states that the symptoms actually get relief with oral intake including food and drink. Denies any GI bleeding but does take iron supplements. No nausea, vomiting, fever, chills. No syncope or loss of consciousness. No back pain or abdominal pain. Presently his chest discomfort is improved compared to the last few days. He resides at an assisted living facility. Related Data Home Medications ?Medication ?Instructions ?Recorded ?Confirmed ?Last Taken ?Type ascorbic acid (vitamin C) 500 mg 500 mg PO DAILY 06/29/21 08/16/24 08/15/24 History tablet vit C 250 mg-vit E 90 mg-zinc 40 1 tablet PO .q12hr 06/29/21 08/16/24 02/21/24 History mg-copper 1 sd-thigxd-thnamg capsule (PreserVision AREDS-2) vitamin B complex (B 1 tablet PO DAILY 06/29/21 08/16/24 08/15/24 History Complex-Vitamin B12 tablet) acetaminophen 500 mg capsule 500 mg PO BID 04/16/22 08/16/24 08/15/24 History cholecalciferol (vitamin D3) 125 50 mcg PO DAILY 04/16/22 08/16/24 08/15/24 History mcg (5,000 unit) capsule coenzyme Q10 100 mg capsule 200 mg PO DAILY 04/16/22 08/16/24 08/15/24 History omega 9-nsp-myu-fish oil 1,200 mg 1 cap PO DAILY 04/16/22 08/16/24 08/15/24 History (144 mg-216 mg) capsule (Fish Oil) ttptzrpljmyb-zwmtmdue-doypjz tablet 1 tablet PO DAILY 02/05/23 08/16/24 08/15/24 History levetiracetam 1,000 mg tablet 1,000 mg PO Q12H 03/07/24 08/16/24 08/15/24 History pantoprazole 40 mg tablet,delayed 20 mg PO Q12H 03/07/24 08/16/24 08/15/24 History release (Protonix) vit C 250 mg-vit E 90 mg-zinc 40 1 tablet PO BID 08/16/24 08/16/24 08/15/24 History mg-copper 1 mw-ydkyrx-edjxzf capsule (Eye Health AREDS-2) Allergies Allergy/AdvReac Type Severity Reaction Status Date / Time No Known Allergies Allergy Verified 08/16/24 12:11 Review of Systems 2 Review of Systems: As reviewed above in HPI [facility] Past Medical History Medical History (Updated 08/16/24 @ 22:28 by José Johnson MD) History of GI diverticular bleed (04/2023) Diverticulitis Chronic GERD Atrial fibrillation Ischemic cardiomyopathy Coronary artery disease Hyperlipidemia Diet-controlled diabetes mellitus Cerebrovascular accident with no reported residual deficits Chronic vascular disorders of intestine Essential (primary) hypertension Cerebral atherosclerosis Epilepsy, unspecified, not intractable, without status epilepticus Generalized anxiety disorder Glaucoma Surgical History Surgical History (Updated 08/16/24 @ 20:03 by Cheli Knott APRN) History of cardiac catheterization History of intravascular stent placement (2020) for superior mesenteric artery stenosis History of coronary artery stent placement x4 History of cholecystectomy (1999) History of open reduction and internal fixation (ORIF) procedure (01/2023) repair of right hip fracture History of bilateral knee replacement left 2010 right 2019 History of cataract extraction Family History Family History Father Cerebrovascular accident Sibling Breast cancer Sister Diabetes mellitus Kidney failure Social History Social History Social History: Surrogate medical decision maker: Jessica Foxs, spouse. Code status: Full code. Smoking packs per day: 1.5 Smoking cigarettes per day: 30.0 Years smoked: 10 Smoking pack-years: 15.00 Smoking status: Former smoker Tobacco type: cigarettes Smokeless tobacco user: chewing tobacco Second hand tobacco smoke exposure: Yes Smoking end date: 08/16/24 Additional smoking assessment comments: quit chewing tobacco in 2022 Alcohol intake: former Substance use: never Substance use type: does not use Do You Feel Safe in your Home?: Yes Lack of Transportation: No Lack of Food: Never True Current Housing: I Have Housing Concerned About Future Housing: No Difficulty Paying Gas/Electric Bills: No Difficulty Paying for Meds: No Currently Unemployed: No Education: Trade/Vocational Certificate Difficulty w/ Childcare or Family Care: No Living arrangements: with family Additional living arrangements comments: Lives with in [place]. Ambulates with a walker. 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 Spiritual care concerns: No Exam 2 Narrative: GENERAL: Elderly and frail but not any acute distress, pleasant and talkative HEAD: [Normocephalic, atraumatic.] EYES: [PERRLA and EOMI.] ENT: Nares clear, no rhinorrhea or epistaxis. Mucous membranes moist. NECK: Supple. CHEST: [Clear to auscultation. No respiratory distress.] HEART: [Regular rate and rhythm]. No murmur heard. [Normal peripheral pulses.] ABDOMEN: [Soft, nondistended], [nontender], [No rigidity or guarding] EXTREMITIES: Normal range of motion. [No edema.] SKIN: Warm, dry, no rash. NEURO: [No focal deficits]. Alert and oriented [x3.] PSYCH: [Normal mood and affect.] Course Vital Signs Vital signs: Vital Signs Temperature 36.5 C 08/16/24 10:25 Pulse Rate 77 08/16/24 10:25 Respiratory Rate 18 08/16/24 10:25 Blood Pressure 142/78 H 08/16/24 10:25 Pulse Oximetry 96 08/16/24 10:25 Oxygen Delivery Room Air 08/16/24 10:25 Temperature 36.6 C 08/16/24 21:56 Pulse Rate 62 08/16/24 21:56 Respiratory Rate 18 08/16/24 21:56 Blood Pressure 127/60 08/16/24 21:56 Pulse Oximetry 98 08/16/24 21:56 Oxygen Delivery Room Air 08/16/24 18:20 MDM - Chest Pain MDM Narrative Medical decision making narrative: 84-year-old male with a past medical history including coronary artery disease with stenting, peptic ulcer disease with bleeding duodenal ulcer previously. Patient presents to the emergency department with epigastric chest discomfort associated with some weakness and dizziness today describes as lightheadedness and feeling he is going to pass out. Intermittent in nature for last few days and he states that the symptoms actually get relief with oral intake including food and drink. Denies any GI bleeding but does take iron supplements. No nausea, vomiting, fever, chills. No syncope or loss of consciousness. No back pain or abdominal pain. Presently his chest discomfort is improved compared to the last few days. He resides at an assisted living facility. Patient's vital signs are stable without any significant blood pressure concerns, tachycardia, fever, hypoxia. He has an unremarkable physical examination with a soft nontender nondistended abdomen, strong symmetric pulses in clear breath sounds. He is awake alert oriented. Given patient's clinical history and historical features concern raised for potential gastritis, gastroenteritis, coronary artery disease, ACS, duodenal ulcer, peptic ulcer, pancreatitis, electrolyte deficiencies, dehydration. Low suspicion intracranial pathology that led to his weakness and lightheadedness but could be secondary to the above potential causes. Broad workup was ordered including CBC, CMP, lipase, PT, PTT, troponin, EKG, chest x-ray and a CT of the head. He was given Pepcid and fluids. CT of the chest abdomen pelvis with contrast was ordered for further delineation. Workup shows no leukocytosis or significant anemia worse than baseline. Normal platelet count. Coagulation panel is normal. Electrolytes show some low sodium and chloride secondary to dehydration which was repleted with IV fluids. Normal electrolytes otherwise and normal renal function, normal hepatic function, initial and 3 hour troponin are negative negative lipase. CT of the head shows multiple old infarcts but no acute process. CT of the chest abdomen pelvis shows no pulmonary embolism or acute cardiopulmonary pathology. Thyroid nodules are seen, no evidence of intra-abdominal process other than constipation with no acute vascular issues identified. Patient was attempted to be ambulated here but felt very unsteady and lightheaded on his feet and at this juncture does not have a safe discharge home given his unsteadiness and difficulty ambulating. Discussed the case with the hospitalist who accepted the patient to a hospital that for continued hydration and repeat evaluation with possibility for PT, OT, rehab and placement if needed. Medical Records Data Attestation: I reviewed the patient's medical records. Lab Data Attestation: I reviewed the patient's lab results. 08/16/24 13:07 08/16/24 13:07 Labs: Lab Results 06/30/25 06/30/25 Range/Units 13:07 14:49 WBC 6.9 (4.5-10.0) K/mm3 RBC 4.07 L (4.6-6.20) M/mm3 Hgb 12.9 L (14.0-18.0) g/dL Hct 38.5 L (42.0-52.0) % MCV 94.6 (80-100) fl MCH 31.7 (26-34) pg MCHC 33.5 (32-36) g/dl RDW 13.2 (11.5-14.5) % Plt Count 173 (150-375) k/mm3 MPV 9.0 (7.4-10.4) fl Immature Gran % (Auto) 0.7 H (0-0.5) % Neut % (Auto) 72.7 (45.5-73.1) % Lymph % (Auto) 12.5 L (18.3-44.2) % Gibson % (Auto) 11.7 H (2.6-8.5) % Eos % (Auto) 1.7 (0-4.4) % Baso % (Auto) 0.7 (0.2-1.2) % Lymph # (Auto) 0.86 L (0.9-3.2) K/mm3 Gibson # (Auto) 0.8 H (0.1-0.6) K/mm3 Eos # (Auto) 0.1 (0-0.3) K/mm3 Baso # (Auto) 0.1 (0.0-0.1) K/mm3 Abs Immat Gran (auto) 0.05 H (0.00-0.031) K/mm3 Absolute Neuts (auto) 5.0 (1.3-6.7) K/mm3 Absolute Nucleated RBC 0.000 (0.0-0.012) K/mm3 Nucleated RBC % 0.0 (0.0-0.2) % PT 13.2 (11.1-14.7) Seconds INR 1.0 APTT 25.7 (22.3-36.8) Seconds Sodium 128 L (137-145) mmol/L Potassium 5.0 (3.4-5.0) mmol/L Chloride 95 L (98-107) mmol/L Carbon Dioxide 26 (22-30) mmol/L Anion Gap 7 (4-12) mmol/L BUN 18 (9-20) mg/dL Creatinine 0.89 (0.7-1.3) mg/dL Estim Creat Clear Calc 55 ml/min Estimated GFR > 60 (59 - ) Glucose 91 (65-110) mg/dL Calcium 9.2 (8.4-10.2) mg/dL Total Bilirubin 0.5 (0.2-1.3) mg/dL AST 37 (17-59) U/L ALT 25 (6-50) U/L Alkaline Phosphatase 50 (38-126) U/L Troponin I < 0.012 < 0.012 (0.000-0.034) ng/mL Total Protein 6.9 (6.3-8.2) g/dL Albumin 4.1 (3.5-5.1) g/dL Lipase 217 (23-300) U/L Imaging Data Attestation: I personally reviewed and interpreted this imaging study as follows: My impression: Impressions Chest X-Ray 08/16/24 11:26 IMPRESSION: No acute cardiopulmonary pathology. Head CT 08/16/24 14:24 IMPRESSION: 1. Multiple small old infarcts in the right frontal, parietal and bilateral occipital lobes and in the bilateral cerebellar hemispheres. No acute intracranial process. Chest/Abdomen/Pelvis CT 08/16/24 14:41 IMPRESSION: CHEST: 1. No pulmonary embolism. 2. No acute cardiopulmonary pathology. 3. 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 ABDOMEN/PELVIS: 1. No evidence of appendicitis, diverticulitis or intestinal obstruction. 2. Constipation. 3. Prominent vessels in the right upper quadrant unchanged from previous examination. 4. Large left fat-containing inguinal hernia. 5. Stent in the superior mesenteric artery with no evidence of occlusion. narrowing is possible Discharge Plan Discharge Clinical Impression: History of cerebrovascular accident, Lightheadedness, Colicky epigastric pain Chest pain Qualifiers: Chest pain type: unspecified Qualified Code(s): R07.9 - Chest pain, unspecified Patient Disposition: Still a Patient Condition: Stable
[2024-08-16 13:16] LABS: Hematocrit 38.5 % (42.0-52.0); Hemoglobin 12.9 g/dL (14.0-18.0); Immature Granulocyte Percent A 0.7 % (0-0.5); Lymphocytes Absolute Auto 0.86 K/mm3 (0.9-3.2); Mean Corpuscular HGB Conc 33.5 g/dl (32-36); Mean Corpuscular Hemoglobin 31.7 pg (26-34); Mean Corpuscular Volume 94.6 fl (80-100); Nucleated Red Blood Cells Absolute Auto 0.000 K/mm3 (0.0-0.012); Nucleated Red Blood Cells Perc 0.0 % (0.0-0.2); Platelet Count Result 173 k/mm3 (150-375); Red Blood Count 4.07 M/mm3 (4.6-6.20); White Blood Count 6.9 K/mm3 (4.5-10.0)
[2024-08-16 13:27] LABS: Alanine Aminotransferase 25 U/L (6-50); Albumin Level 4.1 g/dL (3.5-5.1); Alkaline Phosphatase 50 U/L (38-126); Anion Gap 7 mmol/L (4-12); Aspartate Amino Transferase 37 U/L (17-59); Bilirubin,Total 0.5 mg/dL (0.2-1.3); Blood Urea Nitrogen 18 mg/dL (9-20); Calcium 9.2 mg/dL (8.4-10.2); Carbon Dioxide 26 mmol/L (22-30); Chloride 95 mmol/L (98-107); Estimated CRCL calculation 55 ml/min; Estimated Glomerular Filt Rate > 60; Glucose 91 mg/dL (65-110); Lipase 217 U/L (23-300); Potassium 5.0 mmol/L (3.4-5.0); Sodium 128 mmol/L (137-145); Total Protein 6.9 g/dL (6.3-8.2)
[2024-08-16 13:28] LABS: INR 1.0; Partial Thromboplastin Time 25.7 Seconds (22.3-36.8); Prothrombin Time 13.2 Seconds (11.1-14.7)
[2024-08-16 13:40] LABS: Troponin I < 0.012 ng/mL (0.000-0.034)
--- OUTSIDE RECORDS SUMMARY | 2024-08-16 13:47 | XMS_ITS | Clinical Summary ---
Author Organization [facility] [address] [address] Address [address] [place] [address] Care Team Providers Care Emergency Services Dispatcher Name Role Phone David Ramon MD Primary Care Provider [phone] Allergies No known active allergies Medications pantoprazole [...] 05/07/2022 History of stroke 07/13/2021 Seizure disorder 07/13/2021 Mixed hyperlipidemia 02/01/2021 Assessment & Plan (03/07/2021 1:56 PM GAMB CUTTER): Followed by his PCP chronic and stable. I recommend that he continues to take his Lipitor as cholesterol lowering medication will help keep the stent patent. Assessment & Plan (02/01/2021 11:28 AM GAMB CUTTER): Chronic and stable. Patient was encouraged to make sure he continues his Lipitor as keeping on his cholesterol medication will help with the patency of his stent. I discussed with him that if he continues to smoke, have elevated blood pressure that is uncontrolled or elevated cholesterol that is uncontrolled than this stent can occlude. He understands. 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 He has done well since that time and is able to tolerate food without any abdominal pain and no more weight loss. I will have him follow up in 3 months with a repeat mesenteric artery duplex. Assessment & Plan (02/01/2021 11:31 AM GAMB CUTTER): Patient had SMA stenosis and underwent stent placement. He has done well since the placement of the stent as he is no longer having any pain and able to eat what he would like to eat. I will have him follow up in 1 month with a mesenteric artery duplex for stent surveillance. Assessment & Plan (01/09/2021 11:26 AM GAMB CUTTER): Patient has superior mesenteric artery stenosis as [...] proceed. Assessment & Plan (12/29/2020 9:58 AM GAMB CUTTER): Patient does have SMA stenosis seen on [...] 12/29/2020 Assessment & Plan (03/07/2021 1:57 PM GAMB CUTTER): Patient is currently continuing to smoke but [...] quit. Assessment & Plan (02/01/2021 11:31 AM GAMB CUTTER): Patient is continuing to use tobacco and [...] . Assessment & Plan (01/09/2021 11:25 AM GAMB CUTTER): We once again discussed smoking cessation. He [...] down. Assessment & Plan (12/29/2020 9:57 AM GAMB CUTTER): Patient used to smoke cigarettes and now [...] 12/29/2020 Assessment & Plan (03/07/2021 1:56 PM GAMB CUTTER): Followed by his PCP and chronic and stable. I recommend he continue his Norvasc and metoprolol. Good blood pressure control will also help with patency of his stent. He also is going to see his primary care doctor next week and will likely need to see his freight tallier given his chest pain. Assessment & Plan (02/01/2021 11:29 AM GAMB CUTTER): Chronic and stable and followed by his PCP. Patient will continue his Norvasc and metoprolol. Again good blood pressure control will help with the patency of his stent. Assessment & Plan (01/09/2021 11:24 AM GAMB CUTTER): Followed by his PCP and controlled on his current medications. Assessment & Plan (12/29/2020 9:57 AM GAMB CUTTER): Followed by his PCP and controlled on his current medications. Coronary artery disease invo lving [place] coronary artery of [place] heart 12/18/2020 Assessment & Plan (03/07/2021 1:58 PM GAMB CUTTER): Patient underwent cardiac stenting previously. He had [...] needs to make an appointment with his freight tallier as well. Assessment & Plan (12/29/2020 9:58 AM GAMB CUTTER): Patient has coronary artery disease and underwent stent placement. History of coronary artery stent placement 06/17 Assessment & Plan (01/09/2021 11:26 AM GAMB CUTTER): Patient has stents placed before and has [...] 57 11/11/2023 12:01 PM CDT Temperature 37.2 C (98.9 F) 07/14/2021 8:48 AM CDT Respiratory Rate 20 07/14/2021 8:48 AM CDT Oxygen Saturation 98% 11/11/2023 12:01 PM CDT Inhaled Oxygen Concentration - - Weight 65.1 kg (143 lb 9.6 oz) 11/11/2023 12:01 PM CDT Height 177.8 cm (5' 10) 11/11/2023 12:01 PM CDT Body Mass Index 20.6 11/11/2023 12:01 PM CDT Plan of Treatment Health Maintenance Due Date Last Done Comments Depression Screening 1940 DTaP/Tdap/Td Vaccine (1 - Tdap) 07/26/1950 Hepatitis B Screening 07/26/1957 Pneumococcal vaccine 65+ (1 of 1 - PCV) 07/26/1989 Zoster Vaccine (1 of 2) 07/26/1989 Well Visit 65+ 07/26/2004 Fall Risk Assessment 07/14/2022 07/14/2021 Covid-19 Vaccine ( season) 2023 01/03/2021, 06/07/2020, 05/10/2020 Influenza Vaccine (Season Ended) 2024 01/04/20, 12/13/2012 Medical Devices Implanted Type Area Box Toe Maker Device Identifier Shelf Expiration Date Model / Serial / Lot Coleman Vascular Device Clsr Perclose Prostyle Sut-Mediatd Closure-Repai r Sys 04207-34 - S0 - [id number] Implanted:Qty : 1 on 07/13/2021 by Hamlet Marte MD at [facility] Other - see comments Right: Femoral [employer] 06/17/2023 [id number] / 0 / [id number] Description:Fem Art Closure Device [employer] Gilma Stent Drug Eluting S [facility] Mr 5.16x03nk [id number] - S0 - [id number] Implanted:Qty : 1 on 07/13/2021 by Hamlet Marte MD at [facility] Stent N/A: Coronary [employer] Gilma 09/13/2021 [id number] / 0 / [id number] Description:Ost RCA Bard Peripheral Vascular [id number] Lifestream 6mm 26mm 80cm Balloon Expandable Low Profile Cover - [id number] Implanted:Qty : 1 on 01/16/2021 by Rosalva Simmons MD at [facility] [employer] Peripheral Vascular 05/17/2022 [id number] / / [id number] Coleman V[employer] [id number] Perclose 6fr Suture Mediate Knot Push Vascular Device Closure - [id number] Implanted:Qty : 1 on 01/16/2021 by Rosalva Simmons MD at [facility] [employer] 09/16/2022 [id number] / / [id number] Insurance [facility] MEDICARE GOLD TNA MEDICARE GOLD Advance Directives For more information, please contact: [phone] * Full Code (Latest Code Status on File) Date Activated Date Inactivated Comments 07/13/2021 3:21 PM 07/14/2021 5:40 PM * Full Code Date Activated Date Inactivated Comments 01/16/2021 12:37 PM 01/16/2021 7:08 PM Care Teams Emergency Services Dispatcher Relationship Specialty Start Date End Date David Ramon MD [address] [place] [id number] PCP - General Family Medicine 01/09/21
--- OUTSIDE RECORDS SUMMARY | 2024-08-16 13:47 | XMS_ITS | Referral Summary ---
Author Organization [facility] [address] Address [address] [place] [address] Care Team Providers Care Python Engineer Name Role Phone David Ramon MD Primary Care Provider [phone] Allergies No known active allergies Medications pantoprazole [...] 02/01/2021 Assessment & Plan (03/07/2021 1:56 PM TELEVISION PRESENTER): Followed by his PCP chronic and stable. I recommend that he continues to take his Lipitor as cholesterol lowering medication will help keep the stent patent. Assessment & Plan (02/01/2021 11:28 AM TELEVISION PRESENTER): Chronic and stable. 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 He has done well since that time and is able to tolerate food without any abdominal pain and no more weight loss. I will have him follow up in 3 months with a repeat mesenteric artery duplex. Assessment & Plan (02/01/2021 11:31 AM TELEVISION PRESENTER): Patient had SMA stenosis and underwent stent placement. He has done well since the placement of the stent as he is no longer having any pain and able to eat what he would like to eat. I will have him follow up in 1 month with a mesenteric artery duplex for stent surveillance. Assessment & Plan (01/09/2021 11:26 AM TELEVISION PRESENTER): Patient has superior mesenteric artery stenosis as [...] proceed. Assessment & Plan (12/29/2020 9:58 AM TELEVISION PRESENTER): Patient does have SMA stenosis seen on [...] 12/29/2020 Assessment & Plan (03/07/2021 1:57 PM TELEVISION PRESENTER): Patient is currently continuing to smoke but [...] quit. Assessment & Plan (02/01/2021 11:31 AM TELEVISION PRESENTER): Patient is continuing to use tobacco and [...] . Assessment & Plan (01/09/2021 11:25 AM TELEVISION PRESENTER): We once again discussed smoking cessation. He [...] down. Assessment & Plan (12/29/2020 9:57 AM TELEVISION PRESENTER): Patient used to smoke cigarettes and now [...] 12/29/2020 Assessment & Plan (03/07/2021 1:56 PM TELEVISION PRESENTER): Followed by his PCP and chronic and stable. I recommend he continue his Norvasc and metoprolol. Good blood pressure control will also help with patency of his stent. He also is going to see his primary care doctor next week and will likely need to see his hand spray operator given his chest pain. Assessment & Plan (02/01/2021 11:29 AM TELEVISION PRESENTER): Chronic and stable and followed by his PCP. Patient will continue his Norvasc and metoprolol. Again good blood pressure control will help with the patency of his stent. Assessment & Plan (01/09/2021 11:24 AM TELEVISION PRESENTER): Followed by his PCP and controlled on his current medications. Assessment & Plan (12/29/2020 9:57 AM TELEVISION PRESENTER): Followed by his PCP and controlled on his current medications. Coronary artery disease invo lving [place] coronary artery of [place] heart 12/18/2020 Assessment & Plan (03/07/2021 1:58 PM TELEVISION PRESENTER): Patient underwent cardiac stenting previously. He had [...] needs to make an appointment with his hand spray operator as well. Assessment & Plan (12/29/2020 9:58 AM TELEVISION PRESENTER): Patient has coronary artery disease and underwent stent placement. History of coronary artery stent placement 06/17 Assessment & Plan (01/09/2021 11:26 AM TELEVISION PRESENTER): Patient has stents placed before and has [...] on file Medical Devices Implanted Type Area Beam Saw Operator Device Identifier Shelf Expiration Date Model / Serial / Lot Coleman Vascular Device Clsr Perclose Prostyle Sut-Mediatd Closure-Repai r Sys 00200-82 - S0 - [id number] Implanted:Qty : 1 on 07/13/2021 by Hamlet Marte MD at [facility] Other - see comments Right: Femoral [employer] 06/17/2023 [id number] / 0 / [id number] Description:Fem Art Closure Device [employer] Gilma Stent Drug Eluting S [employer] Mr 5.38l82bg [id number] - S0 - [id number] Implanted:Qty : 1 on 07/13/2021 by Hamlet Marte MD at [facility] Stent N/A: Coronary [employer] Gilma 09/13/2021 [id number] / 0 / [id number] Description:Ost RCA Bard Peripheral Vascular [id number] Lifestream 6mm 26mm 80cm Balloon Expandable Low Profile Cover - [id number] Implanted:Qty : 1 on 01/16/2021 by Rosalva Simmons MD at [facility] Peripheral Vascular 05/17/2022 [id number] / / [id number] [employer] Vascular [id number] Perclose 6fr Suture Mediate Knot Push Vascular Device Closure - [id number] Implanted:Qty : 1 on 01/16/2021 by Rosalva Simmons MD at [facility] [employer] 09/16/2022 [id number] / / [id number] Insurance [employer] MEDICARE GOLD [employer] MEDICARE GOLD Advance Directives For more information, please contact: [phone] * Full Code (Latest Code Status on File) Date Activated Date Inactivated Comments 07/13/2021 3:21 PM 07/14/2021 5:40 PM * Full Code Date Activated Date Inactivated Comments 01/16/2021 12:37 PM 01/16/2021 7:08 PM Care Teams Python Engineer Relationship Specialty Start Date End Date David Ramon MD [address] [place] [id number] PCP - General Family Medicine 01/09/21
[2024-08-16] MEDS: LACTATED RINGERS 1,000 ML 999 ML IV CONT (13:49)
--- NOTE | 2024-08-16 14:42 | ECG_ITS ---
Test Date: 2024-08-16 14:48:18 Measurements Intervals [place] Rate: 65 P: 0 MS: 0 QRS: -56 QRSD: 140 T: 9 QT: 418 QTc: 436 Interpretive Statements SINUS RHYTHM WITH FIRST DEGREE AV BLOCK RIGHT BUNDLE BRANCH BLOCK LEFT ANTERIOR FASCICULAR BLOCK BASELINE ARTIFACT- I, II, AVR, AVL ABNORMAL ECG Compared to ECG 08/16/2024 10:34:48 NO SIGNIFICANT CHANGE Electronically Signed On 08-16-2024 15:30:24 CDT by Kei Gonzalez D.O.
[2024-08-16] MEDS: SODIUM CHLORIDE 0.9% IV 1,000 ML 999 ML IV CONT (14:46)
[2024-08-16 15:30] LABS: Troponin I < 0.012 ng/mL (0.000-0.034)
--- NOTE | 2024-08-16 16:16 | PC.NURSE ---
RN performed road test with pt. Pt ambulated with walker with a steady gait. He reported laying down he was feeling better but did become mildly lightheaded upon ambulation. Breathing remained unlabored. No distress noted.
--- NOTE | 2024-08-16 16:48 | PC.NURSE ---
Pt verbalized permission to update his daughter Sayra on POC. RN left voicemail with her at this time.
--- NOTE | 2024-08-16 16:49 | PM.IMHP ---
H&P: 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 The patient presents here with lower chest/epigastric discomfort, dizziness, weakness, and lightheadedness. He reports onset of dizziness years ago, occurs intermittently with no precipitating activity, and he reports he has previously undergone extensive testing. Chest pain worsened yesterday. He describes this as lower sternal, nonradiating, constant, lasted for around 3 to 4 hours, aggravated by stress, and alleviated by orange juice/Tylenol would partial relieve his symptoms. Pain also in his epigastric region, currently relieved with p.o. intake (food and drink). He endorses dark tarry stools, however on iron supplement. He reports his stool has been loose but not diarrhea. Has history of duodenal ulcer. He denies accompanying in, fever, chills, syncope, loss of consciousness, abdominal pain, or constipation. Initial VS at presentation: 97.7? F, HR 77, RR 18, 142/78, 96% on RA. ED workup showed: No leukocytosis, hemoglobin 12.9 (13.0 on 03/08/2024), sodium 128 (135 on 03/08/2024), no other significant electrolyte derangements, creatinine 0.89 and GFR >60, initial troponin negative x2. CXR showed no acute cardiopulmonary pathology. Head CT showed multiple small old infarcts in the right frontal/parietal/bilateral occipital lobes and in the bilateral cerebral hemispheres, no acute intracranial process. 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 Review of Systems Review of Systems: All systems reviewed & are unremarkable except as noted in HPI and below [facility] Past Medical History Medical History (Updated 08/16/24 @ 20:54 by Cheli Knott, LICENSED PHYSICAL THERAPY ASSISTANT) History of GI diverticular bleed (04/2023) Diverticulitis Chronic GERD Atrial fibrillation Ischemic cardiomyopathy Coronary artery disease Hyperlipidemia Diet-controlled diabetes mellitus Cerebrovascular accident with no reported residual deficits Chronic vascular disorders of intestine Essential (primary) hypertension Cerebral atherosclerosis Epilepsy, unspecified, not intractable, without status epilepticus Generalized anxiety disorder Glaucoma Surgical History Surgical History (Updated 08/16/24 @ 20:03 by Cheli Knott APRN) History of cardiac catheterization History of intravascular stent placement (2020) for superior mesenteric artery stenosis History of coronary artery stent placement x4 History of cholecystectomy (1999) History of open reduction and internal fixation (ORIF) procedure (01/2023) repair of right hip fracture History of bilateral knee replacement left 2010 right 2019 History of cataract extraction Family History Family History Father Cerebrovascular accident Sibling Breast cancer Sister Diabetes mellitus Kidney failure Social History Social History Social History: Surrogate medical decision maker: Jessica Enciso, spouse. Code status: Full code. Smoking packs per day: 1.5 Smoking cigarettes per day: 30.0 Years smoked: 10 Smoking pack-years: 15.00 Smoking status: Former smoker Tobacco type: cigarettes Smokeless tobacco user: chewing tobacco Second hand tobacco smoke exposure: Yes Smoking end date: 08/16/24 Additional smoking assessment comments: quit chewing tobacco in 2022 Alcohol intake: former Substance use: never Substance use type: does not use Do You Feel Safe in your Home?: Yes Lack of Transportation: No Lack of Food: Never True Current Housing: I Have Housing Concerned About Future Housing: No Difficulty Paying Gas/Electric Bills: No Difficulty Paying for Meds: No Currently Unemployed: No Education: Trade/Vocational Certificate Difficulty w/ Childcare or Family Care: No Living arrangements: with family Additional living arrangements comments: Lives with in [place]. Ambulates with a walker. 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 Spiritual care concerns: No Meds Home Medications and Allergies Home Medications ?Medication ?Instructions ?Recorded ?Confirmed ?Type ascorbic acid (vitamin C) 500 mg 500 mg PO DAILY 06/29/21 08/16/24 History tablet vit C 250 mg-vit E 90 mg-zinc 40 1 tablet PO .q12hr 06/29/21 08/16/24 History mg-copper 1 uj-ikzzod-thsmrk capsule (PreserVision AREDS-2) vitamin B complex (B 1 tablet PO DAILY 06/29/21 08/16/24 History Complex-Vitamin B12 tablet) acetaminophen 500 mg capsule 500 mg PO BID 04/16/22 08/16/24 History cholecalciferol (vitamin D3) 125 50 mcg PO DAILY 04/16/22 08/16/24 History mcg (5,000 unit) capsule coenzyme Q10 100 mg capsule 200 mg PO DAILY 04/16/22 08/16/24 History omega 2-zpt-vcm-fish oil 1,200 mg 1 cap PO DAILY 04/16/22 08/16/24 History (144 mg-216 mg) capsule (Fish Oil) fpuhvufeezzj-ekieyudo-fygplg tablet 1 tablet PO DAILY 02/05/23 08/16/24 History ferrous sulfate 325 mg (65 mg 325 mg PO DAILY #90 tabs 08/20/23 08/16/24 Rx iron) tablet clopidogrel 75 mg tablet 75 mg PO DAILY #90 tabs 01/07/24 08/16/24 Rx metoprolol succinate 50 mg 50 mg PO DAILY #100 tabs 01/07/24 08/16/24 Rx tablet,extended release 24 hr rosuvastatin 40 mg tablet 40 mg PO DAILY #90 tabs 01/07/24 08/16/24 Rx levetiracetam 1,000 mg tablet 1,000 mg PO Q12H 03/07/24 08/16/24 History pantoprazole 40 mg tablet,delayed 20 mg PO Q12H 03/07/24 08/16/24 History release (Protonix) polyethylene glycol 3350 17 gram 17 g PO QAM #14 ea 03/10/24 08/16/24 Rx oral powder packet (Miralax) vit C 250 mg-vit E 90 mg-zinc 40 1 tablet PO BID 08/16/24 08/16/24 History mg-copper 1 xu-cmnfzu-tbspnd capsule ([employer] AREDS-2) Allergies Allergy/AdvReac Type Severity Reaction Status Date / Time No Known Allergies Allergy Verified 08/16/24 12:11 Vital Signs Vital Signs - 24 hr 08/16/24 10:25 08/16/24 12:08/16/24 13:00 Temperature 97.7 F 98.3 F 97.8 F Pulse Rate 77 58 L 57 L Respiratory Rate 18 17 16 Blood Pressure 142/78 H 151/80 H 157/78 H Pulse Oximetry 96 99 98 Oxygen Delivery Room Air 08/16/24 14:08 08/16/24 14:22 08/16/24 14:27 Temperature 97.7 F Pulse Rate 57 L 71 Respiratory Rate 16 19 Blood Pressure 167/76 H Pulse Oximetry 100 Oxygen Delivery Room Air 08/16/24 14:30 08/16/24 14:32 08/16/24 15:02 Temperature Pulse Rate 80 75 102 H Respiratory Rate 21 H 21 H 20 Blood Pressure 192/93 H 187/156 H Pulse Oximetry 99 Oxygen Delivery 08/16/24 15:15 08/16/24 15:49 08/16/24 16:02 Temperature 97.9 F 97.8 F Pulse Rate 70 77 90 Respiratory Rate 18 16 15 Blood Pressure 158/77 H 172/115 H Pulse Oximetry 99 98 97 Oxygen Delivery 08/16/24 16:31 Temperature Pulse Rate 76 Respiratory Rate 18 Blood Pressure 141/82 H Pulse Oximetry 100 Oxygen Delivery Exam Const: General: comfortable and no acute distress Other: , elderly, male, nontoxic appearance HENMT: Face/Nose/Sinus: Normal nares present Mouth: Yes moist mucous membranes Eyes: General: appearance normal, both eyes and all related structures Sclera: sclerae normal Pupils: Equal, round and reactive pupils present EOM: EOMs intact bilaterally Resp: Effort & Inspection: normal respiratory effort Auscultation: clear to auscultation bilaterally Cardio: Rate: regular rate Rhythm: regular rhythm Other: S1-S2 present without murmur, rub. Frequent ectopy. GI: Other: Normal abduct Skin: General skin exam: normal color and no rashes or lesions noted Wounds: no wounds Neuro: Speech: normal speech Motor exam (neuro): 5/5 motor strength present throughout Sensory Exam: normal sensation Other: A&O x4 Extrem: General: normal to inspection Psych: Mental Status: mental status grossly normal Affect: normal affect Other: Good insight judgment, pleasant H&P: Results Labs Labs: Short CBC 08/16/24 Range/Units 13:07 WBC 6.9 (4.5-10.0) K/mm3 Hgb 12.9 L (14.0-18.0) g/dL Hct 38.5 L (42.0-52.0) % Plt Count 173 (150-375) k/mm3 BMP 08/16/24 13:07 Sodium 128 L Potassium 5.0 Chloride 95 L Carbon Dioxide 26 BUN 18 Creatinine 0.89 Glucose 91 Calcium 9.2 Cardiac Enzymes 08/16/24 08/16/24 Range/Units 13:07 14:49 Troponin I < 0.012 < 0.012 (0.000-0.034) ng/mL Liver Function 08/16/24 Range/Units 13:07 Total Bilirubin 0.5 (0.2-1.3) mg/dL AST 37 (17-59) U/L ALT 25 (6-50) U/L Alkaline Phosphatase 50 (38-126) U/L Albumin 4.1 (3.5-5.1) g/dL Assessment and Plan Assessment and plan (1) Epigastric pain: Code(s): R10.13 - Epigastric pain Status: Acute Assessment and Plan: CT chest/abdomen/pelvis showed constipation, chronic findings, no acute pathology. Epigastric pain relieved with p.o. intake. History of duodenal ulcer. Stools have been dark, however on iron supplement. Will check stool occult and monitor CBC. Will trial GI cocktail now. Continue PPI b.i.d.. Suspect chest/epigastric pain secondary to ulcer, GI consulted. Last EGD in May of 2023. (2) Chest pain: Qualifiers: Chest pain type: unspecified Qualified Code(s): R07.9 - Chest pain, unspecified Code(s): R07.9 - Chest pain, unspecified Status: Acute Assessment and Plan: Continue to trend troponins. Thus far negative x2. Reviewed EKGs x2, no concerning acute findings, some chronic findings. No chest pain that is reproducible on exam. However, chest pain alleviated with orange juice leading to higher concern for GI etiology, see above. Telemetry monitoring in place. (3) Hyponatremia: Code(s): E87.1 - Hypo-osmolality and hyponatremia Status: Acute Assessment and Plan: Sodium 128, previously 135. Check serum osmolality, urine osmolality, urine sodium, protein to creatinine ratio, urine creatinine. Given 2L bolus and now on NS at 125 mL/hr. Monitor. (4) Epilepsy, unspecified, not intractable, without status epilepticus: Qualifiers: Epilepsy type: unspecified Qualified Code(s): G40.909 - Epilepsy, unspecified, not intractable, without status epilepticus Code(s): G40.909 - Epilepsy, unspecified, not intractable, without status epilepticus Status: Chronic Assessment and Plan: Continue Keppra. (5) Diet-controlled diabetes mellitus: Code(s): E11.9 - Type 2 diabetes mellitus without complications Status: Acute Assessment and Plan: Initial glucose 91. Diet controlled. Monitor glucose via daily lab work. (6) Essential (primary) hypertension: Code(s): I10 - Essential (primary) hypertension Status: Chronic Assessment and Plan: Chronic, currently 138/72. Continue home medications. Monitor. Plan Diet: Heart healthy GI Prophylaxis: Ppi b.i.d. DVT Prophylaxis: SCDs IV fluids: NS 125 mL/hour Lines/Tubes: Peripheral IV Code Status: DNR Quality VTE Prophylaxis VTE prophylaxis: mechanical ordered Hospitalist MIPS Advance Care Plan I have confirmed that the patient's Advanced Care Plan is present, code status is documented, or surrogate decision maker is listed in patient medical record.: Yes Medication Reconciliation I have utilized all available resources to obtain, update and review the patients current medications (includes all prescriptions, OTC, herbals, cannabis, and nutritional supplements).: Yes
[2024-08-16] MEDS: SODIUM CHLORIDE 0.9% IV 1,000 ML 125 ML IV CONT (17:39)
--- NOTE | 2024-08-16 18:08 | ADMGEN ---
This patient, Ramiro Enciso, was admitted to Medical Room 250-01. Patient/family oriented to hospital policies and general routines including ID bracelet, bed and alarms, visiting hours, pain management, procedures, bathroom and other care routines, personal items, smoking policy, room service/diet, and visiting hours. Information on how to activate the Rapid Response Team has been discussed. Patient/Family are encouraged to report perceived risks to care and to ask questions if they do not understand what they are told or what they should do.
[2024-08-16 21:46] LABS: Troponin I 0.030 ng/mL (0.000-0.034)
[2024-08-16] MEDS: PANTOPRAZOLE SOD SESQUIHYDRATE 20 MG TAB PO (21:51)
[2024-08-16] MEDS: BELLADONNA ALK/PHENOB ELIX 10 ML, MAG HYDROX/ALUMINUM HYD/SIMETH 30 ML, LIDOCAINE 2% VI... PO (21:51)
[2024-08-17] VITALS (12 sets, daily range): BP systolic 139–148; BP diastolic 54–68; PULSE 48–91; RESP 16–18; TEMP 36.4–36.6; O2SAT 99–100
[2024-08-17] MEDS: SODIUM CHLORIDE 0.9% IV 1,000 ML 125 ML IV CONT ×3 (01:41→17:50)
[2024-08-17 06:03] LABS: Hematocrit 36.4 % (42.0-52.0); Hemoglobin 12.0 g/dL (14.0-18.0); Immature Granulocyte Percent A 1.4 % (0-0.5); Lymphocytes Absolute Auto 0.83 K/mm3 (0.9-3.2); Mean Corpuscular HGB Conc 33.0 g/dl (32-36); Mean Corpuscular Hemoglobin 31.7 pg (26-34); Mean Corpuscular Volume 96.3 fl (80-100); Nucleated Red Blood Cells Absolute Auto 0.000 K/mm3 (0.0-0.012); Nucleated Red Blood Cells Perc 0.0 % (0.0-0.2); Platelet Count Result 154 k/mm3 (150-375); Red Blood Count 3.78 M/mm3 (4.6-6.20); White Blood Count 5.9 K/mm3 (4.5-10.0)
[2024-08-17 06:24] LABS: Anion Gap 6 mmol/L (4-12); Blood Urea Nitrogen 14 mg/dL (9-20); Calcium 8.8 mg/dL (8.4-10.2); Carbon Dioxide 25 mmol/L (22-30); Chloride 101 mmol/L (98-107); Estimated CRCL calculation 56 ml/min; Estimated Glomerular Filt Rate > 60; Glucose 82 mg/dL (65-110); Potassium 4.5 mmol/L (3.4-5.0); Sodium 132 mmol/L (137-145)
--- NOTE | 2024-08-17 07:06 | PM.IMPN ---
Progress Note: A&P Assessment and Plan (1) Epigastric pain: Code(s): R10.13 - Epigastric pain Status: Acute Assessment and Plan: CT chest/abdomen/pelvis showed constipation, chronic findings, no acute pathology. Epigastric pain relieved with p.o. intake. History of duodenal ulcer. Stools have been dark, however on iron supplement. Will check stool occult and monitor CBC. GI cocktail noted improvement Continue PPI b.i.d.. Suspect chest/epigastric pain secondary to ulcer, GI consulted. Last EGD in May of 2023. (2) Chest pain: Qualifiers: Chest pain type: unspecified Qualified Code(s): R07.9 - Chest pain, unspecified Code(s): R07.9 - Chest pain, unspecified Status: Acute Assessment and Plan: Continue to trend troponins- negative x2. Reviewed EKGs x2, no concerning acute findings, some chronic findings. No chest pain that is reproducible on exam. --> chest pain alleviated with orange juice leading to higher concern for GI etiology, see above. -Telemetry monitoring in place. (3) Hyponatremia: Code(s): E87.1 - Hypo-osmolality and hyponatremia Status: Acute Assessment and Plan: -Sodium 128, previously 135. --> 132 today -Check serum osmolality, urine osmolality, urine sodium, protein to creatinine ratio, urine creatinine. -Given 2L bolus and now on NS at 125 mL/hr. -Monitor. (4) Epilepsy, unspecified, not intractable, without status epilepticus: Qualifiers: Epilepsy type: unspecified Qualified Code(s): G40.909 - Epilepsy, unspecified, not intractable, without status epilepticus Code(s): G40.909 - Epilepsy, unspecified, not intractable, without status epilepticus Status: Chronic Assessment and Plan: Continue Keppra. (5) Diet-controlled diabetes mellitus: Code(s): E11.9 - Type 2 diabetes mellitus without complications Status: Acute Assessment and Plan: Initial glucose 91. Diet controlled. Monitor glucose via daily lab work. (6) Essential (primary) hypertension: Code(s): I10 - Essential (primary) hypertension Status: Chronic Assessment and Plan: Chronic, currently 138/72. Continue home medications. Monitor. Plan Diet: clear liquid GI Prophylaxis: Ppi b.i.d. DVT Prophylaxis: SCDs IV fluids: NS 125 mL/hour Lines/Tubes: Peripheral IV Code Status: DNR Time Spent With Patient Time with patient: 25 - 35 minutes Subjective Date/time seen: 08/17/24 07:06 Interval history: Patient seen this am, sitting up at bedside. Report feeling better but hungry. Denies any chest pain. Denies any nausea or vomiting. Review of Systems Review of Systems: All systems reviewed & are unremarkable except as noted in HPI and below Exam Narrative: benign. frequent ectopy. Const: General: comfortable and no acute distress Other: , elderly, male, nontoxic appearance HENMT: Face/Nose/Sinus: Normal nares present Mouth: Yes moist mucous membranes Eyes: General: appearance normal, both eyes and all related structures Sclera: sclerae normal Pupils: Equal, round and reactive pupils present EOM: EOMs intact bilaterally Resp: Effort & Inspection: normal respiratory effort Auscultation: clear to auscultation bilaterally Cardio: Rate: regular rate Rhythm: regular rhythm Other: S1-S2 present without murmur, rub. Frequent ectopy. GI: Other: Normal abduct Skin: General skin exam: normal color and no rashes or lesions noted Wounds: no wounds Neuro: Cranial nerves: Yes Equal, round and reactive pupils present Speech: normal speech Motor exam (neuro): 5/5 motor strength present throughout Sensory Exam: normal sensation Other: A&O x4 Extrem: General: normal to inspection Psych: Mental Status: mental status grossly normal Affect: normal affect Other: Good insight judgment, pleasant Objective Data Vital Signs Vital Signs: Vital Signs - 24 hr 08/16/24 10:25 08/16/24 12:05 08/16/24 13:00 Temperature 97.7 F 98.3 F 97.8 F Pulse Rate 77 58 L 57 L Respiratory Rate 18 17 16 Blood Pressure 142/78 H 151/80 H 157/78 H Pulse Oximetry 96 99 98 Oxygen Delivery Room Air 08/16/24 14:08 08/16/24 14:22 08/16/24 14:27 Temperature 97.7 F Pulse Rate 57 L 71 Respiratory Rate 16 19 Blood Pressure 167/76 H Pulse Oximetry 100 Oxygen Delivery Room Air 08/16/24 14:30 08/16/24 14:32 08/16/24 15:02 Temperature Pulse Rate 80 75 102 H Respiratory Rate 21 H 21 H 20 Blood Pressure 192/93 H 187/156 H Pulse Oximetry 99 Oxygen Delivery 08/16/24 15:15 08/16/24 15:49 08/16/24 16:02 Temperature 97.9 F 97.8 F Pulse Rate 70 77 90 Respiratory Rate 18 16 15 Blood Pressure 158/77 H 172/115 H Pulse Oximetry 99 98 97 Oxygen Delivery 08/16/24 16:31 08/16/24 17:01 08/16/24 18:01 Temperature 97.9 F 97.6 F Pulse Rate 76 77 71 Respiratory Rate 18 18 18 Blood Pressure 141/82 H 141/76 H 138/72 Pulse Oximetry 100 97 100 Oxygen Delivery 08/16/24 18:20 08/16/24 20:00 08/16/24 20:00 Temperature Pulse Rate 84 Respiratory Rate Blood Pressure Pulse Oximetry Oxygen Delivery Room Air Room Air 08/16/24 21:56 08/17/24 00:00 08/17/24 04:00 Temperature 97.8 F Pulse Rate 62 69 48 L Respiratory Rate 18 Blood Pressure 127/60 Pulse Oximetry 98 Oxygen Delivery 08/17/24 04:41 Temperature 97.7 F Pulse Rate 56 L Respiratory Rate 18 Blood Pressure 142/54 H Pulse Oximetry 100 Oxygen Delivery Intake/Output Intake/Output: Intake & Output 08/14/24 08/15/24 08/16/24 08/17/24 23:59 23:59 23:59 23:59 Intake Total 1999 1150 Output Total 700 Balance 1999 450 Meds/Results Medications: Active Medications Generic Name Dose Route Start Last Admin Trade Name Freq PRN Reason Stop Dose Admin Acetaminophen 650 mg 08/16/24 16:44 Acetaminophen 325 Mg Tablet PO Q4H PRN Mild Pain (1-3) or Fever Ascorbic Acid 500 mg 08/17/24 09:00 Ascorbic Acid 500 Mg Tablet PO DAILY [facility] Clopidogrel Bisulfate 75 mg 08/17/24 09:00 Clopidogrel Bisulfate 75 Mg Tablet PO DAILY [facility] Ferrous Sulfate 325 mg 08/17/24 09:00 Ferrous Sulfate [address] BY MOUTH DAILY [facility] Fish Oil 1 gm 08/17/24 09:00 [place] 3 Polyunsat Fatty Acids 1 Gm Cap PO DAILY [facility] Sodium Chloride 1,000 mls @ 125 mls/hr 08/16/24 16:45 08/17/24 01:41 Normal Saline Iv IV CONT 125 mls/hr .Q8H [facility]EL[facility] Administration Levetiracetam 1,000 mg 08/16/24 21:00 08/16/24 21:50 Levetiracetam 500 Mg Tablet PO 1,000 mg Q12HR [facility] Administration Metoprolol Succinate 50 mg 08/17/24 09:00 Metoprolol Succinate Ext Rel 50 Mg Tabcr PO DAILY [facility] Multivitamins/Minerals 1 tablet 08/17/24 09:00 Opti-Gen Tab PO DAILY [facility] Nonformulary 1 each 08/16/24 20:47 Nutritional XX 08/17/24 20:46 Supplement Coenzyme PRN PRN Q10 100 Mg Capsule) PROTOCOL Ondansetron HCl 4 mg 08/16/24 16:44 Ondansetron Inj 4 Mg/2 Ml Vial IV PUSH Q4H PRN Nausea Pantoprazole Sodium 20 mg 08/16/24 21:00 08/16/24 21:51 Pantoprazole Sod Sesquihydrate 20 Mg Tab PO 20 mg Q12HR [facility] Administration Polyethylene Glycol 17 gm 08/17/24 09:00 Polyethylene Glycol 3350 17 Gm Powd.Pack PO QAM [facility] Rosuvastatin Calcium 40 mg 08/17/24 09:00 Rosuvastatin 20 Mg Tablet PO DAILY [facility] Vitamin B Complex 1 cap 08/17/24 09:00 Vitamin B Complex Capsule PO DAILY [facility] Vitamin D 50 mcg 08/17/24 09:00 Cholecalciferol (Vitamin D3) 25 Mcg (1,000 Units) Tablet PO DAILY [facility] Radiology Results: ITS Impressions Chest X-Ray 08/16/24 11:26 IMPRESSION: No acute cardiopulmonary pathology. Head CT 08/16/24 14:24 IMPRESSION: 1. Multiple small old infarcts in the right frontal, parietal and bilateral occipital lobes and in the bilateral cerebellar hemispheres. No acute intracranial process. Chest/Abdomen/Pelvis CT 08/16/24 14:41 IMPRESSION: CHEST: 1. No pulmonary embolism. 2. No acute cardiopulmonary pathology. 3. 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 ABDOMEN/PELVIS: 1. No evidence of appendicitis, diverticulitis or intestinal obstruction. 2. Constipation. 3. Prominent vessels in the right upper quadrant unchanged from previous examination. 4. Large left fat-containing inguinal hernia. 5. Stent in the superior mesenteric artery with no evidence of occlusion. narrowing is possible Labs Labs: Laboratory Results - last 24 hr 08/16/24 08/16/24 08/16/24 13:07 14:49 21:17 WBC 6.9 RBC 4.07 L Hgb 12.9 L Hct 38.5 L MCV 94.6 MCH 31.7 MCHC 33.5 RDW 13.2 Plt Count 173 MPV 9.0 Immature Gran % (Auto) 0.7 H Neut % (Auto) 72.7 Lymph % (Auto) 12.5 L [place] % (Auto) 11.7 H Eos % (Auto) 1.7 Baso % (Auto) 0.7 Lymph # (Auto) 0.86 L [place] # (Auto) 0.8 H Eos # (Auto) 0.1 Baso # (Auto) 0.1 Abs Immat Gran (auto) 0.05 H Absolute Neuts (auto) 5.0 Absolute Nucleated RBC 0.000 Nucleated RBC % 0.0 PT 13.2 INR 1.0 APTT 25.7 Sodium 128 L Potassium 5.0 Chloride 95 L Carbon Dioxide 26 Anion Gap 7 BUN 18 Creatinine 0.89 Estim Creat Clear Calc 55 Estimated GFR > 60 Glucose 91 Calcium 9.2 Total Bilirubin 0.5 AST 37 ALT 25 Alkaline Phosphatase 50 Troponin I < 0.012 < 0.012 0.030 D Total Protein 6.9 Albumin 4.1 Lipase 217 Ur Random Sodium Urine Creatinine 08/16/24 08/17/24 22:18 05:27 WBC 5.9 RBC 3.78 L Hgb 12.0 L Hct 36.4 L MCV 96.3 MCH 31.7 MCHC 33.0 RDW 13.2 Plt Count 154 MPV 9.1 Immature Gran % (Auto) 1.4 H Neut % (Auto) 66.3 Lymph % (Auto) 14.2 L [place] % (Auto) 14.2 H Eos % (Auto) 3.2 Baso % (Auto) 0.7 Lymph # (Auto) 0.83 L [place] # (Auto) 0.8 H Eos # (Auto) 0.2 Baso # (Auto) 0.0 Abs Immat Gran (auto) 0.08 H Absolute Neuts (auto) 3.9 Absolute Nucleated RBC 0.000 Nucleated RBC % 0.0 PT INR APTT Sodium 132 L Potassium 4.5 Chloride 101 Carbon Dioxide 25 Anion Gap 6 BUN 14 Creatinine 0.88 Estim Creat Clear Calc 56 Estimated GFR > 60 Glucose 82 Calcium 8.8 Total Bilirubin AST ALT Alkaline Phosphatase Troponin I Total Protein Albumin Lipase Ur Random Sodium 70 Urine Creatinine 24.3 Quality VTE Prophylaxis VTE prophylaxis: mechanical ordered Hospitalist MIPS Advance Care Plan I have confirmed that the patient's Advanced Care Plan is present, code status is documented, or surrogate decision maker is listed in patient medical record.: Yes Medication Reconciliation I have utilized all available resources to obtain, update and review the patients current medications (includes all prescriptions, OTC, herbals, cannabis, and nutritional supplements).: Yes
[2024-08-17] MEDS: ROSUVASTATIN 20 MG TABLET 40 MG PO (12:38)
[2024-08-17] MEDS: CLOPIDOGREL BISULFATE 75 MG TABLET PO (12:38)
[2024-08-17] MEDS: OMEGA 3 POLYUNSAT FATTY ACIDS 1 GM CAP PO (12:38)
[2024-08-17] MEDS: METOPROLOL SUCCINATE EXT REL 50 MG TABCR PO (12:39)
[2024-08-17] MEDS: ASCORBIC ACID 500 MG TABLET PO (12:39)
[2024-08-17] MEDS: OPTI-GEN TAB 1 TABLET PO (12:41)
[2024-08-17] MEDS: VITAMIN B COMPLEX CAPSULE 1 CAP PO (12:41)
[2024-08-17] MEDS: CHOLECALCIFEROL (VITAMIN D3) 25 MCG (1,000 UNITS) TABLET 50 MCG PO (12:41)
[2024-08-17] MEDS: PANTOPRAZOLE SOD SESQUIHYDRATE 20 MG TAB PO ×2 (12:41→20:36)
[2024-08-17] MEDS: FERROUS SULFATE 325 MG TABLET DR BY MOUTH (12:41)
--- NOTE | 2024-08-17 17:25 | WPDGICN ---
Assessment and Plan Assessment and plan (1) Epigastric pain: Code(s): R10.13 - Epigastric pain Status: Acute Assessment and Plan: The patient presented with gastric pain, for which the differential diagnosis includes GERD, peptic ulcer disease, and dyspepsia. While he has a significant cardiac history, serial EKGs show no changes indicative of recurrent ischemia. Notably, his current medical treatment has been effective, as he is now free of chest pain and epigastric discomfort. Our recommendation is to continue pantoprazole 40 mg twice daily and gradually advance his diet. Pending hemodynamic stability, discharge is anticipated tomorrow. At that time, he can resume a regular diet with appropriate GERD precautions, and his pantoprazole can be transitioned to a 40 mg once daily maintenance dose, taken on an empty stomach. We can follow him in our GI clinic in 4 to 6 weeks. GI Consult Note Consult date/time: 08/17/24 17:25 Reason for consult: Epigastric pain HPI: Ramiro Enciso is a 84 year old male who has a history of severe duodenal ulcer bleeding in May 2023, which was successfully treated with hemostasis and the placement of clips. The patient states he has been well since then, however he was admitted with a few days of an ill-defined pain, located between the lower chest and epigastrium. Sharp in nature, moderate. However, pantoprazole 40 mg b.i.d. orally was initiated and the pain subsided promptly. At the moment of this consultation the patient is completely asymptomatic from a GI standpoint. He is taking oral iron and recognizes his stools are black in color but solid consistency. Review of Systems Review of Systems: All systems reviewed & are unremarkable except as noted in HPI and below PMFSH Past Medical History Medical History (Updated 08/16/24 @ 22:28 by José Johnson MD) History of GI diverticular bleed (04/2023) Diverticulitis Chronic GERD Atrial fibrillation Ischemic cardiomyopathy Coronary artery disease Hyperlipidemia Diet-controlled diabetes mellitus Cerebrovascular accident with no reported residual deficits Chronic vascular disorders of intestine Essential (primary) hypertension Cerebral atherosclerosis Epilepsy, unspecified, not intractable, without status epilepticus Generalized anxiety disorder Glaucoma Surgical History Surgical History (Updated 08/16/24 @ 20:03 by Cheli Knott APRN) History of cardiac catheterization 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 Code status: Full code. Smoking packs per day: 1.5 Smoking cigarettes per day: 30.0 Years smoked: 10 Smoking pack-years: 15.00 Smoking status: Former smoker Tobacco type: cigarettes Smokeless tobacco user: chewing tobacco Second hand tobacco smoke exposure: Yes Smoking end date: 08/16/24 Additional smoking assessment comments: quit chewing tobacco in 2022 Alcohol intake: former Substance use: never Substance use type: does not use Do You Feel Safe in your Home?: Yes Lack of Transportation: No Lack of Food: Never True Current Housing: I Have Housing Concerned About Future Housing: No Difficulty Paying Gas/Electric Bills: No Difficulty Paying for Meds: No Currently Unemployed: No Education: Trade/Vocational Certificate Difficulty w/ Childcare or Family Care: No Living arrangements: with family Additional living arrangements comments: Lives with in [place]. Ambulates with a walker. 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 Spiritual care concerns: No Meds Home Medications and Allergies Home Medications ?Medication ?Instructions ?Recorded ?Confirmed ?Type ascorbic acid (vitamin C) 500 mg 500 mg PO DAILY 06/29/21 08/16/24 History tablet vit C 250 mg-vit E 90 mg-zinc 40 1 tablet PO .q12hr 06/29/21 08/16/24 History mg-copper 1 [id number]-[id number] capsule ([employer]er[employer]ision AREDS-2) vitamin B complex (B 1 tablet PO DAILY 06/29/21 08/16/24 History Complex-Vitamin B12 tablet) acetaminophen 500 mg capsule 500 mg PO BID 04/16/22 08/16/24 History cholecalciferol (vitamin D3) 125 50 mcg PO DAILY 04/16/22 08/16/24 History mcg (5,000 unit) capsule coenzyme Q10 100 mg capsule 200 mg PO DAILY 04/16/22 08/16/24 History omega 5-fow-jbj-fish oil 1,200 mg 1 cap PO DAILY 04/16/22 08/16/24 History (144 mg-216 mg) capsule (Fish Oil) [id number]-pbspssai-brnzbo tablet 1 tablet PO DAILY 02/05/23 08/16/24 History ferrous sulfate 325 mg (65 mg 325 mg PO DAILY #90 tabs 08/20/23 08/16/24 Rx iron) tablet clopidogrel 75 mg tablet 75 mg PO DAILY #90 tabs 01/07/24 08/16/24 Rx metoprolol succinate 50 mg 50 mg PO DAILY #100 tabs 01/07/24 08/16/24 Rx tablet,extended release 24 hr rosuvastatin 40 mg tablet 40 mg PO DAILY #90 tabs 01/07/24 08/16/24 Rx levetiracetam 1,000 mg tablet 1,000 mg PO Q12H 03/07/24 08/16/24 History pantoprazole 40 mg tablet,delayed 20 mg PO Q12H 03/07/24 08/16/24 History release (Protonix) polyethylene glycol 3350 17 gram 17 g PO QAM #14 ea 03/10/24 08/16/24 Rx oral powder packet (Miralax) vit C 250 mg-vit E 90 mg-zinc 40 1 tablet PO BID 08/16/24 08/16/24 History mg-copper 1 [id number]-wasbhw capsule ([facility] AREDS-2) Allergies Allergy/AdvReac Type Severity Reaction Status Date / Time No Known Allergies Allergy Verified 08/16/24 12:11 Vital Signs Vital Signs - 24 hr 08/16/24 18:01 08/16/24 18:20 08/16/24 20:00 Temperature 97.6 F Pulse Rate 71 Respiratory Rate 18 Blood Pressure 138/72 Pulse Oximetry 100 Oxygen Delivery Room Air Room Air 08/16/24 20:00 08/16/24 21:56 08/17/24 00:00 Temperature 97.8 F Pulse Rate 84 62 69 Respiratory Rate 18 Blood Pressure 127/60 Pulse Oximetry 98 Oxygen Delivery 08/17/24 04:00 08/17/24 04:41 08/17/24 08:00 Temperature 97.7 F Pulse Rate 48 L 56 L Respiratory Rate 18 Blood Pressure 142/54 H Pulse Oximetry 100 Oxygen Delivery Room Air 08/17/24 08:00 08/17/24 12:00 08/17/24 12:39 Temperature Pulse Rate 62 88 91 Respiratory Rate Blood Pressure Pulse Oximetry Oxygen Delivery 08/17/24 14:00 08/17/24 15:00 08/17/24 16:00 Temperature 97.8 F Pulse Rate 62 61 Respiratory Rate 18 Blood Pressure 140/62 Pulse Oximetry 100 Oxygen Delivery Room Air Exam Const: General: cooperative and healthy appearing Resp: Effort & Inspection: normal respiratory effort and able to speak in complete sentences Auscultation: clear to auscultation bilaterally Cardio: Rate: regular rate Rhythm: regular rhythm GI: Inspection: normal to inspection GI Palp: No No hepatosplenomegaly present Auscultation: normal bowel sounds Rectal Exam: deferred Skin: General skin exam: normal color Psych: Appearance: grossly normal Mental Status: mental status grossly normal Results Labs 08/17/24 05:27 08/17/24 05:27 Labs: Short CBC 08/17/24 Range/Units 05:27 WBC 5.9 (4.5-10.0) K/mm3 Hgb 12.0 L (14.0-18.0) g/dL Hct 36.4 L (42.0-52.0) % Plt Count 154 (150-375) k/mm3 [facility] 08/17/24 05:27 Sodium 132 L Potassium 4.5 Chloride 101 Carbon Dioxide 25 BUN 14 Creatinine 0.88 Glucose 82 Calcium 8.8 Cardiac Enzymes 08/16/24 Range/Units 21:17 Troponin I 0.030 D (0.000-0.034) ng/mL
--- NOTE | 2024-08-17 23:29 | ECG_ITS ---
Test Date: 2024-08-17 23:38:56 Measurements Intervals [place]vas Rate: 57 P: 15 AK: 225 QRS: -53 QRSD: 145 T: 15 QT: 441 QTc: 433 Interpretive Statements SINUS BRADYCARDIA WITH FIRST DEGREE AV BLOCK RIGHT BUNDLE BRANCH BLOCK [120+ ms QRS DURATION, UPRIGHT V1, 40+ ms S IN I/aVL/V4/V5/V6] LEFT ANTERIOR FASCICULAR BLOCK [QRS AXIS <= -45, QR IN I, RS IN II] ABNORMAL ECG Compared to ECG 08/16/2024 14:48:18 NO OBVIOUS CHANGE Electronically Signed On 08-18-2024 12:47:32 CDT by Aung Rick M.D.
[2024-08-17] MEDS: BELLADONNA ALK/PHENOB ELIX 10 ML, MAG HYDROX/ALUMINUM HYD/SIMETH 30 ML, LIDOCAINE 2% VI... PO (23:44)
[2024-08-18] VITALS (7 sets, daily range): BP systolic 144–160; BP diastolic 58–63; PULSE 51–77; RESP 20; TEMP 36.3–37; O2SAT 100
[2024-08-18 00:12] LABS: Troponin I 0.025 ng/mL (0.000-0.034)
[2024-08-18] MEDS: SODIUM CHLORIDE 0.9% IV 1,000 ML 125 ML IV CONT ×2 (01:51→09:16)
--- NOTE | 2024-08-18 02:20 | PM.EVENT ---
Event Note Event Note Event Note: This evening at approximately [id number], the pt complained of midsternal CP. EKG was obtained that did not show any new findings as compared to yesterday's, and troponin negative. Pt responded well to a dose of GI Cocktail with resolution of symptoms. VSS.
[2024-08-18 06:05] LABS: Alanine Aminotransferase 25 U/L (6-50); Albumin Level 3.4 g/dL (3.5-5.1); Alkaline Phosphatase 47 U/L (38-126); Anion Gap 6 mmol/L (4-12); Aspartate Amino Transferase 35 U/L (17-59); Bilirubin,Total 0.6 mg/dL (0.2-1.3); Blood Urea Nitrogen 13 mg/dL (9-20); Calcium 8.6 mg/dL (8.4-10.2); Carbon Dioxide 25 mmol/L (22-30); Chloride 103 mmol/L (98-107); Estimated CRCL calculation 56 ml/min; Estimated Glomerular Filt Rate > 60; Glucose 78 mg/dL (65-110); Potassium 4.2 mmol/L (3.4-5.0); Sodium 134 mmol/L (137-145); Total Protein 5.6 g/dL (6.3-8.2)
[2024-08-18 06:12] LABS: Hematocrit 33.5 % (42.0-52.0); Hemoglobin 11.1 g/dL (14.0-18.0); Immature Granulocyte Percent A 0.9 % (0-0.5); Lymphocytes Absolute Auto 0.83 K/mm3 (0.9-3.2); Mean Corpuscular HGB Conc 33.1 g/dl (32-36); Mean Corpuscular Hemoglobin 31.8 pg (26-34); Mean Corpuscular Volume 96.0 fl (80-100); Nucleated Red Blood Cells Absolute Auto 0.000 K/mm3 (0.0-0.012); Nucleated Red Blood Cells Perc 0.0 % (0.0-0.2); Platelet Count Result 149 k/mm3 (150-375); Red Blood Count 3.49 M/mm3 (4.6-6.20); White Blood Count 5.6 K/mm3 (4.5-10.0)
--- NOTE | 2024-08-18 07:27 | P.PNIM_ITS ---
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 The patient presents here with lower chest/epigastric discomfort, dizziness, weakness, and lightheadedness. He reports onset of dizziness years ago, occurs intermittently with no precipitating activity, and he reports he has previously undergone extensive testing. Chest pain worsened yesterday. He describes this as lower sternal, nonradiating, constant, lasted for around 3 to 4 hours, aggravated by stress, and alleviated by orange juice/Tylenol would partial relieve his symptoms. Pain also in his epigastric region, currently relieved with p.o. intake (food and drink). He endorses dark tarry stools, however on iron supplement. He reports his stool has been loose but not diarrhea. Has history of duodenal ulcer. He denies accompanying in, fever, chills, syncope, loss of consciousness, abdominal pain, or constipation. Initial VS at presentation: 97.7? F, HR 77, RR 18, 142/78, 96% on RA. ED workup showed: No leukocytosis, hemoglobin 12.9 (13.0 on 03/08/2024), sodium 128 (135 on 03/08/2024), no other significant electrolyte derangements, creatinine 0.89 and GFR >60, initial troponin negative x2. CXR showed no acute cardiopulmonary pathology. Head CT showed multiple small old infarcts in the right frontal/parietal/bilateral occipital lobes and in the bilateral cerebral hemispheres, no acute intracranial process. 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 08/18/24 Objective Data Vital Signs Vital Signs: Vital Signs - 24 hr 08/17/24 08:00 08/17/24 08:00 08/17/24 12:00 Temperature Pulse Rate 62 88 Respiratory Rate Blood Pressure Pulse Oximetry Oxygen Delivery Room Air 08/17/24 12:39 08/17/24 14:00 08/17/24 15:00 Temperature 97.8 F Pulse Rate 91 62 Respiratory Rate 18 Blood Pressure 140/62 Pulse Oximetry 100 Oxygen Delivery Room Air 08/17/24 16:00 08/17/24 20:00 08/17/24 20:00 Temperature Pulse Rate 61 60 Respiratory Rate Blood Pressure 139/67 Pulse Oximetry Oxygen Delivery 08/17/24 20:32 08/17/24 20:32 08/17/24 20:32 Temperature 97.6 F Pulse Rate 65 Respiratory Rate 16 Blood Pressure 139/67 141/68 H 148/68 H Pulse Oximetry 99 Oxygen Delivery 08/17/24 20:40 08/17/24 23:51 08/18/24 00:00 Temperature Pulse Rate 65 57 L Respiratory Rate 16 Blood Pressure Pulse Oximetry 99 99 Oxygen Delivery Room Air Room Air 08/18/24 04:00 08/18/24 05:09 Temperature 97.3 F L Pulse Rate 51 L 66 Respiratory Rate 20 Blood Pressure 144/58 H Pulse Oximetry 100 Oxygen Delivery Intake/Output Intake/Output: Intake & Output 08/15/24 08/16/24 08/17/24 08/18/24 23:59 23:59 23:59 23:59 Intake Total 1999 3660 1650 Output Total 700 600 Balance 1999 2960 1050 Meds/Results Medications: Active Medications Generic Name Dose Route Start Last Admin Trade Name Gioq PRN Reason Stop Dose Admin Acetaminophen 650 mg 08/16/24 16:44 Acetaminophen 325 Mg Tablet PO Q4H PRN Mild Pain (1-3) or Fever Ascorbic Acid 500 mg 08/17/24 09:00 08/17/24 12:39 Ascorbic Acid 500 Mg Tablet PO 500 mg DAILY EMELINA Administration Clopidogrel Bisulfate 75 mg 08/17/24 09:00 08/17/24 12:38 Clopidogrel Bisulfate 75 Mg Tablet PO 75 mg DAILY EMELINA Administration Ferrous Sulfate 325 mg 08/17/24 09:00 08/17/24 12:41 Ferrous Sulfate [address] BY MOUTH 325 mg DAILY EMELINA Administration Fish Oil 1 gm 08/17/24 09:00 08/17/24 12:38 [place] 3 Polyunsat Fatty Acids 1 Gm Cap PO 1 gm DAILY EMELINA Administration Sodium Chloride 1,000 mls @ 125 mls/hr 08/16/24 16:45 08/18/24 01:51 Normal Saline Iv IV CONT 125 mls/hr .Q8H EMELINA Administration Levetiracetam 1,000 mg 08/16/24 21:00 08/17/24 20:35 Levetiracetam 500 Mg Tablet PO 1,000 mg Q12HR EMELINA Administration Metoprolol Succinate 50 mg 08/17/24 09:00 08/17/24 12:39 Metoprolol Succinate Ext Rel 50 Mg Tabcr PO 50 mg DAILY EMELINA Administration Multivitamins/Minerals 1 tablet 08/17/24 09:00 08/17/24 12:41 Opti-Gen Tab PO 1 tablet DAILY EMELINA Administration Ondansetron HCl 4 mg 08/16/24 16:44 Ondansetron Inj 4 Mg/2 Ml Vial IV PUSH Q4H PRN Nausea Pantoprazole Sodium 20 mg 08/16/24 21:00 08/17/24 20:36 Pantoprazole Sod Sesquihydrate 20 Mg Tab PO 20 mg Q12HR EMELINA Administration Polyethylene Glycol 17 gm 08/17/24 09:00 08/17/24 12:42 Polyethylene Glycol 3350 17 Gm Powd.Pack PO 17 gm QAM EMELINA Administration Rosuvastatin Calcium 40 mg 08/17/24 09:00 08/17/24 12:38 Rosuvastatin 20 Mg Tablet PO 40 mg DAILY EMELINA Administration Vitamin B Complex 1 cap 08/17/24 09:00 08/17/24 12:41 Vitamin B Complex Capsule PO 1 cap DAILY EMELINA Administration Vitamin D 50 mcg 08/17/24 09:00 08/17/24 12:41 Cholecalciferol (Vitamin D3) 25 Mcg (1,000 Units) Tablet PO 50 mcg DAILY EMELINA Administration Radiology Results: ITS Impressions Chest X-Ray 08/16/24 11:26 IMPRESSION: No acute cardiopulmonary pathology. Head CT 08/16/24 14:24 IMPRESSION: 1. Multiple small old infarcts in the right frontal, parietal and bilateral occipital lobes and in the bilateral cerebellar hemispheres. No acute intracranial process. Chest/Abdomen/Pelvis CT 08/16/24 14:41 IMPRESSION: CHEST: 1. No pulmonary embolism. 2. No acute cardiopulmonary pathology. 3. 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 ABDOMEN/PELVIS: 1. No evidence of appendicitis, diverticulitis or intestinal obstruction. 2. Constipation. 3. Prominent vessels in the right upper quadrant unchanged from previous examination. 4. Large left fat-containing inguinal hernia. 5. Stent in the superior mesenteric artery with no evidence of occlusion. narrowing is possible Labs Labs: Laboratory Results - last 24 hr 08/17/24 08/18/24 23:43 05:19 WBC 5.6 RBC 3.49 L Hgb 11.1 L Hct 33.5 L MCV 96.0 MCH 31.8 MCHC 33.1 RDW 13.3 Plt Count 149 L MPV 9.0 Immature Gran % (Auto) 0.9 H Neut % (Auto) 69.0 Lymph % (Auto) 14.8 L [place] % (Auto) 11.6 H Eos % (Auto) 2.8 Baso % (Auto) 0.9 Lymph # (Auto) 0.83 L [place] # (Auto) 0.7 H Eos # (Auto) 0.2 Baso # (Auto) 0.1 Abs Immat Gran (auto) 0.05 H Absolute Neuts (auto) 3.9 Absolute Nucleated RBC 0.000 Nucleated RBC % 0.0 Sodium 134 L Potassium 4.2 Chloride 103 Carbon Dioxide 25 Anion Gap 6 BUN 13 Creatinine 0.88 Estim Creat Clear Calc 56 Estimated GFR > 60 Glucose 78 Calcium 8.6 Total Bilirubin 0.6 AST 35 ALT 25 Alkaline Phosphatase 47 Troponin I 0.025 Total Protein 5.6 L Albumin 3.4 L
[2024-08-18] MEDS: OMEGA 3 POLYUNSAT FATTY ACIDS 1 GM CAP PO (09:17)
[2024-08-18] MEDS: FERROUS SULFATE 325 MG TABLET DR BY MOUTH (09:17)
[2024-08-18] MEDS: ASCORBIC ACID 500 MG TABLET PO (09:17)
[2024-08-18] MEDS: CHOLECALCIFEROL (VITAMIN D3) 25 MCG (1,000 UNITS) TABLET 50 MCG PO (09:18)
[2024-08-18] MEDS: ROSUVASTATIN 20 MG TABLET 40 MG PO (09:18)
[2024-08-18] MEDS: VITAMIN B COMPLEX CAPSULE 1 CAP PO (09:18)
[2024-08-18] MEDS: PANTOPRAZOLE SOD SESQUIHYDRATE 20 MG TAB PO (09:18)
[2024-08-18] MEDS: OPTI-GEN TAB 1 TABLET PO (09:18)
[2024-08-18] MEDS: METOPROLOL SUCCINATE EXT REL 50 MG TABCR PO (09:18)
[2024-08-18] MEDS: CLOPIDOGREL BISULFATE 75 MG TABLET PO (09:18)
[2024-08-18 10:50] LABS: Hematocrit 33.7 % (42.0-52.0); Hemoglobin 11.2 g/dL (14.0-18.0)
--- NOTE | 2024-08-18 11:44 | PM.DS ---
DS: Admitting Diagnosis Discharge Date 08/18/24 Admitting Diagnosis Epigastric pain,GERD DS: Discharge Diagnosis Discharge Diagnosis (1) Epigastric pain: Code(s): R10.13 - Epigastric pain Status: Acute Assessment and Plan: CT chest/abdomen/pelvis showed constipation, chronic findings, no acute pathology. Epigastric pain relieved with p.o. intake. History of duodenal ulcer. Stools have been dark, however on iron supplement. GI cocktail noted improvement Continue PPI . Suspect chest/epigastric pain secondary to ulcer, GI consulted. can be discharge on PPI Last EGD in May of 2023. (2) Chest pain: Qualifiers: Chest pain type: unspecified Qualified Code(s): R07.9 - Chest pain, unspecified Code(s): R07.9 - Chest pain, unspecified Status: Acute Assessment and Plan: Continue to trend troponins- negative . Reviewed EKGs x2, no concerning acute findings, some chronic findings. No chest pain that is reproducible on exam. --> chest pain alleviated with orange juice leading to higher concern for GI etiology, see above. -Telemetry monitoring in place. (3) Hyponatremia: Code(s): E87.1 - Hypo-osmolality and hyponatremia Status: Acute Assessment and Plan: -Sodium 128on admission, previously 135. --> 134 today -received IVF -Monitor. (4) Epilepsy, unspecified, not intractable, without status epilepticus: Qualifiers: Epilepsy type: unspecified Qualified Code(s): G40.909 - Epilepsy, unspecified, not intractable, without status epilepticus Code(s): G40.909 - Epilepsy, unspecified, not intractable, without status epilepticus Status: Chronic Assessment and Plan: Continue Keppra. (5) Diet-controlled diabetes mellitus: Code(s): E11.9 - Type 2 diabetes mellitus without complications Status: Acute Assessment and Plan: Diet controlled. Monitor glucose via daily lab work. (6) Essential (primary) hypertension: Code(s): I10 - Essential (primary) hypertension Status: Chronic Assessment and Plan: Chronic, currently 138/72. Continue home medications. Monitor. Plan Diet: heart healthy GI Prophylaxis: Ppi b.i.d. 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 The patient presents here with lower chest/epigastric discomfort, dizziness, weakness, and lightheadedness. He reports onset of dizziness years ago, occurs intermittently with no precipitating activity, and he reports he has previously undergone extensive testing. Chest pain worsened yesterday. He describes this as lower sternal, nonradiating, constant, lasted for around 3 to 4 hours, aggravated by stress, and alleviated by orange juice/Tylenol would partial relieve his symptoms. Pain also in his epigastric region, currently relieved with p.o. intake (food and drink). He endorses dark tarry stools, however on iron supplement. He reports his stool has been loose but not diarrhea. Has history of duodenal ulcer. He denies accompanying in, fever, chills, syncope, loss of consciousness, abdominal pain, or constipation. Initial VS at presentation: 97.7? F, HR 77, RR 18, 142/78, 96% on RA. ED workup showed: No leukocytosis, hemoglobin 12.9 (13.0 on 03/08/2024), sodium 128 (135 on 03/08/2024), no other significant electrolyte derangements, creatinine 0.89 and GFR >60, initial troponin negative x2. CXR showed no acute cardiopulmonary pathology. Head CT showed multiple small old infarcts in the right frontal/parietal/bilateral occipital lobes and in the bilateral cerebral hemispheres, no acute intracranial process. 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 08/18/24 PAtient was seen and examined at bedside. he is feeling fine denies any chest pain,SOB,N/V. Abd pain improved tolearted diet. GI on board. patient can be discharged and follow up as outpatient Status at Discharge Overall status at discharge: patient is back to baseline Time Spent with Patient Time attestation: Total time spent providing and/or coordinating discharge services: Time spent: Greater than 30 minutes Exam Narrative: benign. frequent ectopy. Const: General: comfortable and no acute distress Other: , elderly, male, nontoxic appearance HENMT: Face/Nose/Sinus: Normal nares present Mouth: Yes moist mucous membranes Eyes: General: appearance normal, both eyes and all related structures Sclera: sclerae normal Pupils: Equal, round and reactive pupils present EOM: EOMs intact bilaterally Resp: Effort & Inspection: normal respiratory effort Auscultation: clear to auscultation bilaterally Cardio: Rate: regular rate Rhythm: regular rhythm Other: S1-S2 present without murmur, rub. Frequent ectopy. GI: Other: Normal abduct Skin: General skin exam: normal color and no rashes or lesions noted Wounds: no wounds Neuro: Cranial nerves: Yes Equal, round and reactive pupils present Speech: normal speech Motor exam (neuro): 5/5 motor strength present throughout Sensory Exam: normal sensation Other: A&O x4 Extrem: General: normal to inspection Psych: Mental Status: mental status grossly normal Affect: normal affect Other: Good insight judgment, pleasant DS: Data Data Completed and Pending Labs on day of discharge: Labs from last 24 hours 08/18/24 08/18/24 08/17/24 10:42 05:19 23:43 WBC 5.6 RBC 3.49 L Hgb 11.2 L 11.1 L Hct 33.7 L 33.5 L MCV 96.0 MCH 31.8 MCHC 33.1 RDW 13.3 Plt Count 149 L MPV 9.0 Immature Gran % (Auto) 0.9 H Neut % (Auto) 69.0 Lymph % (Auto) 14.8 L [place] % (Auto) 11.6 H Eos % (Auto) 2.8 Baso % (Auto) 0.9 Lymph # (Auto) 0.83 L [place] # (Auto) 0.7 H Eos # (Auto) 0.2 Baso # (Auto) 0.1 Abs Immat Gran (auto) 0.05 H Absolute Neuts (auto) 3.9 Absolute Nucleated RBC 0.000 Nucleated RBC % 0.0 Sodium 134 L Potassium 4.2 Chloride 103 Carbon Dioxide 25 Anion Gap 6 BUN 13 Creatinine 0.88 Estim Creat Clear Calc 56 Estimated GFR > 60 Glucose 78 Calcium 8.6 Total Bilirubin 0.6 AST 35 ALT 25 Alkaline Phosphatase 47 Troponin I 0.025 Total Protein 5.6 L Albumin 3.4 L Discharge Plan Discharge Attending physician on discharge: Jaky Melendez Discharging Clinician: Jaky Melendez Anticipated Discharge Date/Time: 08/18/24 11:47 Patient Disposition: Home Activity: as tolerated Diet: heart healthy Discharge Instructions: pantoprazole 40 mg once daily maintenance dose, taken on an empty stomach. follow GI clinic in 4 to 6 weeks. follow with PCP for thyroid noduls follow with repeat blood test in 2-3 days and report the results to the PCP Patient Instructions: Antibiotic Form Patient Language: Frisian Stand Alone Forms: General Discharge Information Follow-up/Referrals: David Ramon MD [Primary Care Provider] - 1 Week Jose Terrazas MD [Physician] - 4 Weeks Discharge Medications: Continued clopidogrel 75 mg tablet 75 mg PO DAILY Qty: 90 1RF metoprolol succinate 50 mg tablet extended release 24 hr 50 mg PO DAILY Qty: 100 1RF rosuvastatin 40 mg tablet 40 mg PO DAILY Qty: 90 1RF coenzyme Q10 100 mg capsule 200 mg PO DAILY cholecalciferol (vitamin D3) 125 mcg (5,000 unit) capsule 50 mcg PO DAILY acetaminophen 500 mg capsule 500 mg PO BID omega 9-xox-pkt-fish oil [Fish Oil] 1,200 (144-216) mg capsule 1 cap PO DAILY ferrous sulfate 325 mg (65 mg iron) tablet 325 mg PO DAILY Qty: 90 0RF ascorbic acid (vitamin C) 500 mg Tablet 500 mg PO DAILY vitamin B complex [B Complex-Vitamin B12] Tablet 1 tablet PO DAILY PreserVision AREDS-2 250-90-40-1 mg Capsule 1 tablet PO .q12hr [id number] Tablet 1 tablet PO DAILY pantoprazole [Protonix] 40 mg tablet,delayed release (DR/EC) 20 mg PO Q12H levetiracetam 1,000 mg tablet 1,000 mg PO Q12H polyethylene glycol 3350 [Miralax] 17 gram Powder In Packet 17 g PO QAM Qty: 14 0RF [facility] AREDS-2 250-90-40-1 mg capsule 1 tablet PO BID Other Ambulatory Orders: Complete Blood Count no Diff (Routine) Timeframe: 2 Days Location: Determined by Patient Ordered By: Jaky Melendez Date of admission: 08/17/24 07:53 Primary Care Provider: David Ramon Admitting Provider: Jose Martinez Attending physician on admission: Jaky Melendez Condition: Stable Quality VTE Prophylaxis VTE prophylaxis: mechanical ordered
[2024-08-18 14:03] LABS: Osmolality, Urine. 260 mOsm/kg (50-1200)
== END 2024-08-18 18:20 | DRG 392 ==
LOC: ANHED 13:26 → ANH2MED 17:21
PROVIDERS: Emergency Medicine; Nurse Practitioner Family; Student in an Organized Health Care Education/Training Program; Admitting Provider Internal Medicine; Emergency Provider Student in an Organized Health Care Education/Training Program; PCP Family Medicine; Visit Provider Internal Medicine
DX: R10.13 Epigastric pain (principal); E87.1 Hypo-osmolality and hyponatremia; R07.9 Chest pain, unspecified; G40.909 Epilepsy, unspecified, not intractable, without status epilepticus; E11.9 Type 2 diabetes mellitus without complications; I10 Essential (primary) hypertension; I25.10 Atherosclerotic heart disease of native coronary artery without angina pectoris; E78.5 Hyperlipidemia, unspecified; K21.9 Gastro-esophageal reflux disease without esophagitis; I48.91 Unspecified atrial fibrillation; I25.5 Ischemic cardiomyopathy; F41.1 Generalized anxiety disorder; H40.9 Unspecified glaucoma; E04.1 Nontoxic single thyroid nodule; Z96.653 Presence of artificial knee joint, bilateral; Z66 Do not resuscitate; Z87.11 Personal history of peptic ulcer disease; Z95.5 Presence of coronary angioplasty implant and graft; Z86.73 Personal history of transient ischemic attack (TIA), and cerebral infarction without residual deficits; Z90.49 Acquired absence of other specified parts of digestive tract; Z87.891 Personal history of nicotine dependence
CPT/HCPCS: 36415; 70450; 71046; 71260; 74177; 80048; 80053; 82570; 83690; 83930; 83935; 84300; 84484; 85014; 85018; 85025; 85610; 85730; 93005; 96361; 96374; 96375; 97110; 97161; 97530; 99285; A9270; G0378; J7030; J7120; Q9967

== ENCOUNTER 2024-10-17 07:32 | Emergency (ER) | payer MEDICARE, SELFPAY ==
[2024-10-17] VITALS (14 sets, daily range): BP systolic 125–161; BP diastolic 68–95; PULSE 77–93; RESP 16–20; TEMP 36.6; O2SAT 93–98
--- NOTE | ~2024-10-17 | XR_ITS ---
EXAMINATION: XR chest 2V DATE: 10/17/2024 09:53 INDICATION: Chest pain TECHNIQUE: frontal and lateral views of the chest were obtained. COMPARISON: Chest radiograph dated 09/25/2024 FINDINGS: The lungs are clear with no focal airspace opacities, pulmonary edema, pleural effusion or pneumothorax. Heart size is normal. Coronary artery stenting. Moderate degenerative skeletal changes in the thoracic spine and bilateral shoulders. IMPRESSION: 1. No acute cardiopulmonary disease. Reviewed, dictated and finalized at location A.
--- NOTE | 2024-10-17 07:47 | ECG_ITS ---
Test Date: 2024-10-17 07:35:14 Measurements Intervals [place] Rate: 83 P: 0 CO: 0 QRS: -44 QRSD: 115 T: 11 QT: 386 QTc: 455 Interpretive Statements ATRIAL FIBRILLATION WITH VENTRICULAR TRIGEMINY RIGHT BUNDLE BRANCH BLOCK LEFT ANTERIOR FASCICULAR BLOCK ABNORMAL ECG Compared to ECG 09/27/2024 08:04:31 VENTRICULAR TRIGEMINY NOW PRESENT Electronically Signed On 10-17-2024 15:58:17 CDT by Kei Gonzalez D.O.
--- NOTE | 2024-10-17 07:47 | ED.GENADULT ---
HPI - General Adult General Chief complaint: Chest Pain Stated complaint: chest pain Time Seen by Provider: 10/17/24 07:45 History of Present Illness HPI narrative: 84-year-old male presenting to the emergency department for evaluation for chest pain that started this morning. Patient does have prior history of coronary disease, GI bleed, diabetes, chronic kidney disease, AFib. patient states he woke up with chest pain and lasted approximately 1 to hours. Upon arrival to the emergency department by EMS patient states the pain has since relieved. Patient reports he does have for stents and did have a recent Angiocath on 09/28/2024 and the plan at that time by Dr. Green was aggressive medical therapy and risk factor modification. Related Data Home Medications ?Medication ?Instructions ?Recorded ?Confirmed ?Last Taken ?Type ascorbic acid (vitamin C) 500 mg 500 mg PO DAILY 06/29/21 09/26/24 08/15/24 History tablet vit C 250 mg-vit E 90 mg-zinc 40 1 tablet PO .q12hr 06/29/21 09/26/24 02/21/24 History mg-copper 1 wg-igdbyr-eoudzp capsule (PreserVision AREDS-2) vitamin B complex (B 1 tablet PO DAILY 06/29/21 09/26/24 08/15/24 History Complex-Vitamin B12 tablet) acetaminophen 500 mg capsule 1,000 mg PO .q12hr 04/16/22 09/25/24 09/25/24 09:00 History 1,000 mg cholecalciferol (vitamin D3) 125 50 mcg PO DAILY 04/16/22 09/26/24 08/15/24 History mcg (5,000 unit) capsule coenzyme Q10 100 mg capsule 200 mg PO DAILY 04/16/22 09/26/24 08/15/24 History omega 4-ehp-yvg-fish oil 1,200 mg 1 cap PO DAILY 04/16/22 09/26/24 08/15/24 History (144 mg-216 mg) capsule (Fish Oil) dktzfztkezet-jdkwvfpf-qhtjsn tablet 1 tablet PO DAILY 02/05/23 09/26/24 08/15/24 History levetiracetam 1,000 mg tablet 1,000 mg PO Q12H 03/07/24 09/25/24 08/15/24 History pantoprazole 40 mg tablet,delayed 20 mg PO Q12H 03/07/24 09/25/24 08/15/24 History release (Protonix) calcium carbonate 1,000 mg PO .tid prn 09/26/24 09/26/24 Unknown History escitalopram oxalate 10 mg tablet 10 mg PO HS 09/26/24 09/26/24 Unknown History Allergies Allergy/AdvReac Type Severity Reaction Status Date / Time No Known Allergies Allergy Verified 10/17/24 07:42 Review of Systems Review of Systems: All systems reviewed & are unremarkable except as noted in HPI and below FOR[facility]LY [facility], [facility] Past Medical History Medical History (Updated 10/17/24 @ 13:31 by Jordan Alonso MD) Anemia History of GI diverticular bleed (04/2023) Diverticulitis Chronic GERD Atrial fibrillation Ischemic cardiomyopathy Coronary artery disease Hyperlipidemia Diet-controlled diabetes mellitus Cerebrovascular accident with no reported residual deficits Chronic vascular disorders of intestine Essential (primary) hypertension Cerebral atherosclerosis Epilepsy, unspecified, not intractable, without status epilepticus Generalized anxiety disorder Glaucoma Surgical History Surgical History History of cardiac catheterization 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 Code status: Full code. Smoking packs per day: 1.5 Smoking cigarettes per day: 30.0 Years smoked: 10 Smoking pack-years: 15.00 Smoking status: Former smoker Smokeless tobacco user: chewing tobacco Second hand tobacco smoke exposure: Yes Additional smoking assessment comments: quit chewing tobacco in 2022 Alcohol intake: former Substance use: never Substance use type: does not use Do You Feel Safe in your Home?: Yes Lack of Transportation: No Lack of Food: Never True Current Housing: I Have Housing Concerned About Future Housing: No Difficulty Paying Gas/Electric Bills: No Difficulty Paying for Meds: No Currently Unemployed: No Education: Trade/Vocational Certificate Difficulty w/ Childcare or Family Care: No Living arrangements: with family Additional living arrangements comments: Lives with in [place]. Ambulates with a walker. 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 Spiritual care concerns: No Exam Narrative: APPEARANCE: Well appearing, no pain, no distress, well-nourished. HEAD: normocephalic, atraumatic. EYES: PERRLA/EOMI, conjunctivae clear. NOSE: Normal no drainage EARS:TMS clear with good light reflex. THROAT: Pharynx clear, no exudate. NECK: Supple. No adenopathy, no masses. RESPIRATORY: Airway patent, respirations nonlabored. Clear to auscultation bilaterally, no rales, rhonchi, wheezing. CARDIOVASCULAR: Regular rate and rhythm without murmurs rubs or gallops. ABDOMINAL: Soft, nontender, nondistended, normal bowel sounds MUSCULOSKELETAL: Moves all extremities. Strength/ROM intact, No edema, No calf tenderness. NEURO: Alert. Cranial nerves II through XII intact. Grossly intact SKIN: Warm, dry. Normal Color Course Vital Signs Vital signs: Vital Signs Temperature 97.9 F 10/17/24 07:32 Pulse Rate 91 10/17/24 07:32 Respiratory Rate 18 10/17/24 07:32 Blood Pressure 131/80 10/17/24 07:32 Pulse Oximetry 94 10/17/24 07:32 Oxygen Delivery Room Air 10/17/24 07:32 Temperature 97.9 F 10/17/24 07:32 Pulse Rate 86 10/17/24 16:30 Respiratory Rate 16 10/17/24 16:30 Blood Pressure 143/83 H 10/17/24 16:30 Pulse Oximetry 97 10/17/24 16:30 Oxygen Delivery Room Air 10/17/24 07:40 Medical Decision Making MDM Narrative Medical decision making narrative: 84-year-old male presents to the emergency department for evaluation for chest pain that resolved prior to arrival. Patient does have a significant history of coronary disease but did have a recent Angiocath and was cleared by Cardiology. Upon arrival to the emergency department patient is denying any current chest pain. Patient is currently afebrile with no leukocytosis and hemoglobin of 11.5. Patient has an INR of 1.3. No acute abnormalities on his CMP patient had negative serial troponins. Chest x-ray shows no acute cardiopulmonary abnormality. Patient EKG does show AFib and patient has no AFib. Patient is on Eliquis and Plavix along with metoprolol. Patient was updated the results of his workup. Patient is currently pain-free. Patient is comfortable the plan for discharge to home. Differential Diagnosis Differential Diagnosis: ACS, AFib with RVR, AFib, chest wall pain, pneumonia, pneumothorax Vital Signs Vital Signs: Vital Signs Temperature 97.9 F 10/17/24 07:32 Pulse Rate 91 10/17/24 07:32 Respiratory Rate 18 10/17/24 07:32 Blood Pressure 131/80 10/17/24 07:32 Pulse Oximetry 94 10/17/24 07:32 Oxygen Delivery Room Air 10/17/24 07:32 Temperature 97.9 F 10/17/24 07:32 Pulse Rate 86 10/17/24 16:30 Respiratory Rate 16 10/17/24 16:30 Blood Pressure 143/83 H 10/17/24 16:30 Pulse Oximetry 97 10/17/24 16:30 Oxygen Delivery Room Air 10/17/24 07:40 Lab Data Lab results reviewed: Yes I reviewed the patient's lab results. 10/17/24 07:49 10/17/24 07:49 Labs: Lab Results 10/17/24 10/17/24 10/17/24 Range/Units 07:49 11:47 17:38 WBC 8.4 (4.5-10.0) K/mm3 RBC 3.57 L (4.6-6.20) M/mm3 Hgb 11.5 L (14.0-18.0) g/dL Hct 35.2 L (42.0-52.0) % MCV 98.6 (80-100) fl MCH 32.2 (26-34) pg MCHC 32.7 (32-36) g/dl RDW 13.2 (11.5-14.5) % Plt Count 198 (150-375) k/mm3 MPV 8.6 (7.4-10.4) fl Immature Gran % (Auto) 0.8 H (0-0.5) % Neut % (Auto) 72.5 (45.5-73.1) % Lymph % (Auto) 10.9 L (18.3-44.2) % [place] % (Auto) 12.1 H (2.6-8.5) % Eos % (Auto) 2.9 (0-4.4) % Baso % (Auto) 0.8 (0.2-1.2) % Lymph # (Auto) 0.91 (0.9-3.2) K/mm3 [place] # (Auto) 1.0 H (0.1-0.6) K/mm3 Eos # (Auto) 0.2 (0-0.3) K/mm3 Baso # (Auto) 0.1 (0.0-0.1) K/mm3 Abs Immat Gran (auto) 0.07 H (0.00-0.031) K/mm3 Absolute Neuts (auto) 6.1 (1.3-6.7) K/mm3 Absolute Nucleated RBC 0.000 (0.0-0.012) K/mm3 Nucleated RBC % 0.0 (0.0-0.2) % PT 16.0 H (11.1-14.7) Seconds INR 1.3 APTT 31.8 (22.3-36.8) Seconds Sodium 132 L (137-145) mmol/L Potassium 4.5 (3.4-5.0) mmol/L Chloride 99 (98-107) mmol/L Carbon Dioxide 27 (22-30) mmol/L Anion Gap 6 (4-12) mmol/L BUN 16 (9-20) mg/dL Creatinine 1.01 (0.7-1.3) mg/dL Estim Creat Clear Calc 49 ml/min Estimated GFR > 60 (59 - ) Glucose 103 (65-110) mg/dL Calcium 9.2 (8.4-10.2) mg/dL Total Bilirubin 0.6 (0.2-1.3) mg/dL AST 32 (17-59) U/L ALT 27 (6-50) U/L Alkaline Phosphatase 74 (38-126) U/L Troponin I < 0.012 < 0.012 Pending (0.000-0.034) ng/mL Total Protein 6.5 (6.3-8.2) g/dL Albumin 3.9 (3.5-5.1) g/dL Lipase 112 (23-300) U/L Imaging Data Radiologist's impression: Impressions Chest X-Ray 10/17/24 10:03 IMPRESSION: 1. No acute cardiopulmonary disease. ECG Data EKG #1: EKG Interpretation: normal rate, atrial fibrillation, non-specific ST changes, normal QRS and no acute changes Discharge Plan Discharge Clinical Impression: Chest pain Patient Disposition: Home Condition: Stable Instructions: Antibiotic Form, Chest Pain (ED) Additional Instructions: Have close follow-up with your primary care physician and account executive healthcare. If you have any worsening symptoms please call or return to the emergency department. Patient Language: Gibraltarian Prescriptions: No Action clopidogrel 75 mg tablet 75 mg PO DAILY Qty: 90 1RF metoprolol succinate 50 mg tablet extended release 24 hr 50 mg PO DAILY Qty: 100 1RF rosuvastatin 40 mg tablet 40 mg PO DAILY Qty: 90 1RF coenzyme Q10 100 mg capsule 200 mg PO DAILY cholecalciferol (vitamin D3) 125 mcg (5,000 unit) capsule 50 mcg PO DAILY acetaminophen 500 mg capsule 1,000 mg PO .q12hr omega 6-jxy-bwd-fish oil [Fish Oil] 1,200 (144-216) mg capsule 1 cap PO DAILY ferrous sulfate 325 mg (65 mg iron) tablet 325 mg PO DAILY Qty: 90 0RF ascorbic acid (vitamin C) 500 mg Tablet 500 mg PO DAILY vitamin B complex [B Complex-Vitamin B12] Tablet 1 tablet PO DAILY PreserVision AREDS-2 250-90-40-1 mg Capsule 1 tablet PO .q12hr kiutoazfvdeb-jsrcqsrt-pdkxoy Tablet 1 tablet PO DAILY pantoprazole [Protonix] 40 mg tablet,delayed release (DR/EC) 20 mg PO Q12H levetiracetam 1,000 mg tablet 1,000 mg PO Q12H polyethylene glycol 3350 [Miralax] 17 gram Powder In Packet 17 g PO QAM Qty: 14 0RF escitalopram oxalate 10 mg tablet 10 mg PO HS calcium carbonate 500 mg calcium (1,250 mg) tablet,chewable 1,000 mg PO .tid prn isosorbide mononitrate 30 mg Tablet Extended Release 24 Hr 30 mg PO QAM Qty: 15 0RF Eliquis 5 mg tablet 5 mg PO BID Qty: 60 0RF Follow-up/Referrals: David Ramon MD [Primary Care Provider, Family Practice] Quality HEART score for chest pain patients History: slightly suspicious ECG: normal Age: > or = to 65 years Risk factors: 1 or 2 risk factors Troponin: < or = to 1x normal limit Heart score: 3
[2024-10-17 07:54] LABS: Hematocrit 35.2 % (42.0-52.0); Hemoglobin 11.5 g/dL (14.0-18.0); Immature Granulocyte Percent A 0.8 % (0-0.5); Lymphocytes Absolute Auto 0.91 K/mm3 (0.9-3.2); Mean Corpuscular HGB Conc 32.7 g/dl (32-36); Mean Corpuscular Hemoglobin 32.2 pg (26-34); Mean Corpuscular Volume 98.6 fl (80-100); Nucleated Red Blood Cells Absolute Auto 0.000 K/mm3 (0.0-0.012); Nucleated Red Blood Cells Perc 0.0 % (0.0-0.2); Platelet Count Result 198 k/mm3 (150-375); Red Blood Count 3.57 M/mm3 (4.6-6.20); White Blood Count 8.4 K/mm3 (4.5-10.0)
[2024-10-17 08:06] LABS: INR 1.3; Prothrombin Time 16.0 Seconds (11.1-14.7)
[2024-10-17 08:07] LABS: Partial Thromboplastin Time 31.8 Seconds (22.3-36.8)
[2024-10-17 08:15] LABS: Alanine Aminotransferase 27 U/L (6-50); Albumin Level 3.9 g/dL (3.5-5.1); Alkaline Phosphatase 74 U/L (38-126); Anion Gap 6 mmol/L (4-12); Aspartate Amino Transferase 32 U/L (17-59); Bilirubin,Total 0.6 mg/dL (0.2-1.3); Blood Urea Nitrogen 16 mg/dL (9-20); Calcium 9.2 mg/dL (8.4-10.2); Carbon Dioxide 27 mmol/L (22-30); Chloride 99 mmol/L (98-107); Estimated CRCL calculation 49 ml/min; Estimated Glomerular Filt Rate > 60; Glucose 103 mg/dL (65-110); Lipase 112 U/L (23-300); Potassium 4.5 mmol/L (3.4-5.0); Sodium 132 mmol/L (137-145); Total Protein 6.5 g/dL (6.3-8.2)
[2024-10-17 08:20] LABS: Troponin I < 0.012 ng/mL (0.000-0.034)
--- NOTE | 2024-10-17 11:39 | ECG_ITS ---
Test Date: 2024-10-17 11:44:13 Measurements Intervals [place] Rate: 93 P: 0 MD: 0 QRS: -42 QRSD: 128 T: 21 QT: 372 QTc: 463 Interpretive Statements ATRIA FIBRILLATION WITH FREQUENT VENTRICULAR PREMATURE COMPLEXES RIGHT BUNDLE BRANCH BLOCK LEFT ANTERIOR FASCICULAR BLOCK ABNORMAL ECG Compared to ECG 10/17/2024 07:35:14 NO SIGNIFICANT CHANGE Electronically Signed On 10-17-2024 16:03:05 CDT by Kei Gonzalez D.O.
[2024-10-17 12:18] LABS: Troponin I < 0.012 ng/mL (0.000-0.034)
[2024-10-17 18:10] LABS: Troponin I < 0.012 ng/mL (0.000-0.034)
== END 2024-10-17 18:05 | disposition home or self-care (01) ==
PROVIDERS: Emergency Provider Emergency Medicine; PCP Family Medicine
DX: R07.9 Chest pain, unspecified (principal); I25.10 Atherosclerotic heart disease of native coronary artery without angina pectoris; I12.9 Hypertensive chronic kidney disease with stage 1 through stage 4 chronic kidney disease, or unspecified chronic kidney disease; E11.22 Type 2 diabetes mellitus with diabetic chronic kidney disease; N18.9 Chronic kidney disease, unspecified; I48.91 Unspecified atrial fibrillation; Z95.5 Presence of coronary angioplasty implant and graft; Z87.891 Personal history of nicotine dependence
CPT/HCPCS: 36415; 71046; 80053; 83690; 84484; 85025; 85610; 85730; 93005; 99284

== ENCOUNTER 2025-01-01 05:07 | Emergency (ER) | payer MEDICARE, SELFPAY ==
[2025-01-01] VITALS (7 sets, daily range): BP systolic 119–133; BP diastolic 62–78; PULSE 77–89; RESP 12–18; TEMP 36.4; O2SAT 95–100
--- NOTE | ~2025-01-01 | XR_ITS ---
Examination: XR chest 1V Clinical History: glf Comparison: 11/20/2024 Technique: Portable AP Findings: Cardiomegaly. No focal airspace consolidation or pleural effusion. No pneumothorax. No acute bony abnormality. IMPRESSION: 1. No acute cardiopulmonary findings given portable technique. Reviewed, dictated and finalized at location R. ATING ROOM ASSISTANT
--- NOTE | ~2025-01-01 | XR_ITS ---
Examination: XR pelvis 1-2V Clinical History: glf Comparison: Pelvic x-ray 11/21/2024 Technique: AP pelvis Findings/impression: 1. No acute pelvic fracture identified. Given patient age, if high clinical concern persists then consider CT. 2. Left arthroplasty intact without associated fracture. 3. ORIF right hip intact. Reviewed, dictated and finalized at location R. ORATE DRIVER
--- NOTE | ~2025-01-01 | CT_ITS ---
CT HEAD NON-CONTRAST CT C-SPINE Clinical History: fall on thinners Comparison: CT brain and C-spine 11/20/2024 Technique: Unenhanced axial images skull base to vertex. Coronal, sagittal reformats. Axial images thoracic inlet to skull base. Sagittal and coronal reformats. CT images acquired with automatic exposure control for dose reduction DLP: 681 mGy-cm Findings: Head: Age-related atrophy and chronic white matter microvascular ischemic changes. Large encephalomalacia right parietal lobe. Small encephalomalacia left occipital lobe. Small bilateral cerebellar chronic infarcts. Sulci, ventricles: Unremarkable. No intracerebral hemorrhage. No evidence acute territorial infarct. No mass effect, midline shift, intra-/extra-axial fluid collection. Bony calvarium intact. Visualized paranasal sinuses: Clear. Mastoid air cells: Clear. C-spine: No acute fracture or listhesis. Vertebral bodies normal height and alignment. Moderate degenerative changes. Disc spaces maintained. Prevertebral soft tissues within normal limits. Visualized lung apices: Clear. Visualized thyroid: Enlarged gland, left side worse, with diffuse calcifications. No enlarged cervical nodes. IMPRESSION: HEAD: 1. No acute intracranial findings. C-SPINE: 1. No acute fracture. Reviewed, dictated and finalized at location R. DEVELOPER IMPRESSION: HEAD: 1. No acute intracranial findings. C-SPINE: 1. No acute fracture.
--- NOTE | 2025-01-01 05:18 | ECG_ITS ---
Test Date: 2025-01-01 05:44:07 Measurements Intervals [place] Rate: 85 P: 0 MO: 0 QRS: -38 QRSD: 120 T: 47 QT: 401 QTc: 478 Interpretive Statements ATRIAL FIBRILLATION RIGHT BUNDLE BRANCH BLOCK Electronically Signed On 01-01-2025 10:55:08 ROUNDHOUSE FIRER/FIREMAN by Nicolas Razo D.O
--- NOTE | 2025-01-01 05:22 | ED_ITS ---
HPI - General Adult General Chief complaint: Altered Mental Status Stated complaint: Fall/?syncope on thinners, increased confusion Time Seen by Provider: 01/01/25 05:16 History of Present Illness HPI narrative: This is an 84-year-old male presenting from assisted living for possible fall. Patient is a poor historian and is A&O times 1-2. he does not remember the event. He is unsure if he hit his head. He is denying any complaints at this time. I spoke with the patient's son Giuliano Enciso power of patent prosecution attorney. We discussed the goals of care and of todays visit. The patient is DNR DNI. The son would like traumatic injuries ruled out but does not further workup. Related Data Home Medications ?Medication ?Instructions ?Recorded ?Confirmed ?Last Taken ?Type ascorbic acid (vitamin C) 500 mg 500 mg PO DAILY 06/2911/20/24 11/20/24 History tablet vit C 250 mg-vit E 90 mg-zinc 40 1 tablet PO .q12hr 11/20/24 11/20/24 History mg-copper 1 yq-yertkq-fqvsqs capsule (PreserVision AREDS-2) vitamin B complex (B 1 tablet PO DAILY 06/29/21 1 11/20/24 History Complex-Vitamin B12 tablet) acetaminophen 500 mg capsule 500 mg PO .q12hr 04/16/22 11/20/24 11/19/24 History cholecalciferol (vitamin D3) 125 50 mcg PO DAILY 04/1611/20/24 11/20/24 History mcg (5,000 unit) capsule coenzyme Q10 100 mg capsule 200 mg PO DAILY 04/16/22 1 11/20/24 History omega 2-vgl-zua-fish oil 1,200 mg 1 cap PO DAILY 04/1611/20/24 11/19/24 History (144 mg-216 mg) capsule (Fish Oil) levetiracetam 1,000 mg tablet 1,000 mg PO Q12H 5 11/20/24 11/20/24 History pantoprazole 40 mg tablet,delayed 20 mg PO Q12H 11/20/24 11/20/24 History release (Protonix) escitalopram oxalate 10 mg tablet 20 mg PO DAILY 09/2611/20/24 11/20/24 History amitriptyline 10 mg tablet 10 mg PO BID 11/20/2411/2011/20/24 History buspirone 7.5 mg tablet 7.5 mg PO BID 11/20/2411/2011/20/24 History Allergies Allergy/AdvReac Type Severity Reaction Status Date / Time No Known Allergies Allergy Verified 01/01/25 05:25 [facility] Past Medical History Medical History Anemia History of GI diverticular bleed (04/2023) Diverticulitis Chronic GERD Atrial fibrillation Ischemic cardiomyopathy Coronary artery disease Hyperlipidemia Diet-controlled diabetes mellitus Cerebrovascular accident with no reported residual deficits Chronic vascular disorders of intestine Essential (primary) hypertension Cerebral atherosclerosis Epilepsy, unspecified, not intractable, without status epilepticus Generalized anxiety disorder Glaucoma Surgical History Surgical History History of cardiac catheterization 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 Code status: Full code. Smoking packs per day: 1.5 Smoking cigarettes per day: 30.0 Years smoked: 10 Smoking pack-years: 15.00 Smoking status: Former smoker Tobacco type: cigarettes Smokeless tobacco user: chewing tobacco Second hand tobacco smoke exposure: Yes Additional smoking assessment comments: quit chewing tobacco in 2022 Alcohol intake: former Substance use: never Substance use type: does not use Lack of Transportation: No Lack of Food: Never True Current Housing: I Have Housing Concerned About Future Housing: No Difficulty Paying Gas/Electric Bills: No Difficulty Paying for Meds: No Currently Unemployed: No Education: Trade/Vocational Certificate Difficulty w/ Childcare or Family Care: No Living arrangements: with family Additional living arrangements comments: Lives with in [place]. Ambulates with a walker. 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 Spiritual care concerns: No Exam Narrative: APPEARANCE: No apparent distress. Head: 2 hematomas to the posterior left scalp EYES: EOMI, NOSE: Atraumatic NECK: Trachea midline RESPIRATORY: No increased rate of breathing clear auscultation CARDIOVASCULAR: RRR, +2 pulses in all extremities ABDOMINAL: Non-distended, soft nontender MUSCULOSKELETAl: No obvious deformities, head to toe trauma exam revealed hematomas on the scalp and old bruising but no other injuries on palpation and active/passive range of motion. NEURO: Alert. Moving 4/4 extremities SKIN:: old bruising over the shoulders bilaterally PSYCHIATRIC: Normal affect Course Vital Signs Vital signs: Vital Signs Temperature 97.6 F 01/01/25 05:07 Pulse Rate 89 01/01/25 05:07 Respiratory Rate 15 01/01/25 05:07 Blood Pressure 130/72 01/01/25 05:07 Pulse Oximetry 99 01/01/25 05:07 Oxygen Delivery Room Air 01/01/25 05:07 Temperature 97.6 F 01/01/25 05:07 Pulse Rate 83 01/01/25 09:27 Respiratory Rate 18 01/01/25 09:27 Blood Pressure 126/62 01/01/25 09:27 Pulse Oximetry 98 01/01/25 09:27 Oxygen Delivery Room Air 01/01/25 05:21 Medical Decision Making [facility] Narrative Medical decision making narrative: -Course: 84-year-old male presenting after ground level fall on [employer]. Patient is a poor historian does not remember the events fall. It is unclear if he lost consciousness or not. Goals of care were discussed with the patient and patient's power of patent prosecution attorney his son. The goal of today's visit is to rule out traumatic injuries but will not laboratory studies or other invasive test. -DDX includes but is not limited to: Intracranial hemorrhage, C-spine injury rib fractures, pelvic fracture Vital Signs Vital Signs: Vital Signs Temperature 97.6 F 01/01/25 05:07 Pulse Rate 89 01/01/25 05:07 Respiratory Rate 15 01/01/25 05:07 Blood Pressure 130/72 01/01/25 05:07 Pulse Oximetry 99 01/01/25 05:07 Oxygen Delivery Room Air 01/01/25 05:07 Temperature 97.6 F 01/01/25 05:07 Pulse Rate 83 01/01/25 09:27 Respiratory Rate 18 01/01/25 09:27 Blood Pressure 126/62 01/01/25 09:27 Pulse Oximetry 98 01/01/25 09:27 Oxygen Delivery Room Air 01/01/25 05:21 Discharge Plan Discharge Clinical Impression: Ground-level fall Patient Disposition: NH Long Term/Asst Living Condition: Stable Patient Language: Israeli Prescriptions: No Action clopidogrel 75 mg tablet 75 mg PO DAILY Qty: 90 1RF metoprolol succinate 50 mg tablet extended release 24 hr 50 mg PO DAILY Qty: 100 1RF rosuvastatin 40 mg tablet 40 mg PO DAILY Qty: 90 1RF coenzyme Q10 100 mg capsule 200 mg PO DAILY cholecalciferol (vitamin D3) 125 mcg (5,000 unit) capsule 50 mcg PO DAILY acetaminophen 500 mg capsule 500 mg PO .q12hr omega 1-hmu-jqy-fish oil [Fish Oil] 1,200 (144-216) mg capsule 1 cap PO DAILY ferrous sulfate 325 mg (65 mg iron) tablet 325 mg PO DAILY Qty: 90 0RF ascorbic acid (vitamin C) 500 mg Tablet 500 mg PO DAILY vitamin B complex [B Complex-Vitamin B12] Tablet 1 tablet PO DAILY PreserVision AREDS-2 250-90-40-1 mg Capsule 1 tablet PO .q12hr pantoprazole [Protonix] 40 mg tablet,delayed release (DR/EC) 20 mg PO Q12H levetiracetam 1,000 mg tablet 1,000 mg PO Q12H polyethylene glycol 3350 [Miralax] 17 gram Powder In Packet 17 g PO QAM Qty: 14 0RF escitalopram oxalate 10 mg tablet 20 mg PO DAILY isosorbide mononitrate 30 mg Tablet Extended Release 24 Hr 30 mg PO QAM Qty: 15 0RF Eliquis 5 mg tablet 5 mg PO BID Qty: 60 0RF buspirone 7.5 mg tablet 7.5 mg PO BID amitriptyline 10 mg tablet 10 mg PO BID sennosides-docusate sodium [Senokot-S] 8.6-50 mg Tablet 2 tab PO BID Qty: 30 0RF hydrocodone-acetaminophen 5-325 mg tablet 1 tablet PO Q6H PRN (Reason: pain) Qty: 12 0RF Follow-up/Referrals: David Ramon MD [Primary Care Provider, Family Practice]
--- NOTE | 2025-01-01 07:15 | PC.NURSE ---
This RN attempted to call [facility] and they did not answer.
--- NOTE | 2025-01-01 07:15 | PC.NURSE ---
This RN called Giuliano and gave update on pt going back to facility. Pt states he can not pick pt up and last time they sent him back via ambulance.
--- NOTE | 2025-01-01 07:19 | PC.NURSE ---
This RN called [facility] again and received no answer.
--- NOTE | 2025-01-01 09:21 | PC.NURSE ---
RN attempted 2x to give give report to facility no answer
== END 2025-01-01 09:31 ==
PROVIDERS: Emergency Provider Emergency Medicine; PCP Family Medicine
DX: Z04.3 Encounter for examination and observation following other accident (principal); I48.91 Unspecified atrial fibrillation; I25.5 Ischemic cardiomyopathy; I25.10 Atherosclerotic heart disease of native coronary artery without angina pectoris; I67.2 Cerebral atherosclerosis; E11.39 Type 2 diabetes mellitus with other diabetic ophthalmic complication; H42 Glaucoma in diseases classified elsewhere; E78.5 Hyperlipidemia, unspecified; G40.909 Epilepsy, unspecified, not intractable, without status epilepticus; K21.9 Gastro-esophageal reflux disease without esophagitis; K55.1 Chronic vascular disorders of intestine; F41.1 Generalized anxiety disorder; Z95.5 Presence of coronary angioplasty implant and graft; Z96.653 Presence of artificial knee joint, bilateral; Z86.73 Personal history of transient ischemic attack (TIA), and cerebral infarction without residual deficits; Z87.891 Personal history of nicotine dependence; Z98.49 Cataract extraction status, unspecified eye; Z90.49 Acquired absence of other specified parts of digestive tract; Z79.01 Long term (current) use of anticoagulants; Z79.02 Long term (current) use of antithrombotics/antiplatelets; Z79.899 Other long term (current) drug therapy; I45.10 Unspecified right bundle-branch block; W18.30XA Fall on same level, unspecified, initial encounter
CPT/HCPCS: 70450; 71045; 72125; 72170; 93005; 99284